=== PATIENT | male | born 1940 | race Caucasian/White ===

== ENCOUNTER → 2016-05-17 | Outpatient (CLI) | payer OTHER ==
[~2016-05-17] MED LIST: ATROPINE SULFATE 0.1 MG/ML 5ML SYR ONE; CEPH500C PO; DOBUTamine HCL 12.5 MG/ML 20 ML VIAL ONE; HYDR-5688 PO; METOPROLOL TARTRATE 1 MG/ML VIAL ONE; PERFLUTREN LIPID MICROSPHERE (DEFINITY) IV ONE; SULF800T23 PO
--- NOTE | 2016-05-18 20:01 | DOBUTAMINE ECHO ---
*NOTICE TO RECEIVING LIBERTARIAN AGENCY This information is strictly Confidential and protected under [place] law. [place] law prohibits you from making any further disclosure of this information unless further disclosure is expressly permitted by the written consent of the person to whom it pertains or is authorized by law. A general authorization for the release of medical or other information is not sufficient for this purpose. Hospital accepts no responsibility if the information is made available to any other person, INCLUDING THE PATIENT. Interpretation Summary * Name: VALE RAMSEY [id number] Study Date: 05/17/2016 11:12 AM BP: 146/92 mmHg * Patient Location: [facility] HR: 96 * : 1940 (M/d/yyyy) Gender: Male Height: 72 in * Age: 75 yrs Ethnicity: CA Weight: 223 lb * Ordering Physician: Naveed Winter * Referring Physician: Naveed Winter * Performed By: Odessa Valenzuela RDCS * * Reason For Study: Abnormal EKG, atrial fibrillation * BSA: 2.2 m2 * The stress echocardiogram is negative for inducible ischemia. * Baseline ECG was essentially normal. No symptoms were noted. * -- Conclusions -- * 1. Negative dobutamine stress echocardiogram for focal myocardial ischemia at 89% MPHR. * 2. Negative ECG portion of pharmacologic stress test. * 3. No symptoms. * 4. Resting ECG normal sinus rhythm with frequernt PACs. No change in baseline ectopy during stress. * 5. Resting echo with moderate global hypokinesis, moderately reduced systolic funtion (EF=40%), and probably severe mitral regurgitation (eccentric posterior jet). * 6. Stress images showed only modest reduction in LV cavity size and only mild increase in systolic funtion (EF increased from 40% to 50%). In the absence of symptoms or dynamic ECG changes this is unlikely to represent multi-vessel ischemia but could represent poor systolic reserve (possibly secondary to severe mitral regurgitation). Procedure Details * DOBUTAMINE ECHO, CPT#67841 * ECHO DOPPLER, CPT #[id number] * ECHO COLOR FLOW, CPT #[id number] * A contrast injection of Definity was performed to improve assessment of LV function. * Contrast was injected into an intravenous site in the left arm. * One vial of Definity ultrasound contrast was diluted in normal saline to a total volume of 10 ml. A total of '5.5' ml of solution was administered during imaging. * Lot # [id number] of Definity utilized for procedure. * Expiration date OCT 28. * The attending nurse who injected the contrast agent was Jade Rivera RN. Left Ventricle * The left ventricle is moderately dilated. * There is normal left ventricular wall thickness. * Ejection Fraction = 35-40%. * There is moderate global hypokinesis of the left ventricle. Right Ventricle * The right ventricle is normal in size and function. Atria * The left atrium is moderately dilated. * Right atrial size is normal. * The interatrial septum is intact with no evidence for an atrial septal defect. Mitral Valve * The mitral valve is normal in structure and function. * There is severe mitral regurgitation. Tricuspid Valve * The tricuspid valve is normal in structure and function. * There is mild tricuspid regurgitation. Aortic Valve * The aortic valve is trileaflet. * The aortic valve is normal in structure and function. * There is no significant aortic regurgitation. Pulmonic Valve * The pulmonary valve is not well seen, but the Doppler examination is normal without significant regurgitation or stenosis. * There is no significant pulmonary regurgitation. Great Vessels * The aortic root is normal size. * Aortic arch of normal dimension. * No obvious dissection could be visualized. * The pulmonary artery is not well visualized, but is probably normal size. Pericardium * There is no pericardial effusion. Stress Parameters * Rest heart rate was '96' BPM. * Rest blood pressure was '146/92' * Maximum heart rate achieved was 131 bpm. * Maximum heart rate was 89 % of maximum age-predicted heart rate. * Maximum blood pressure was '179/98' * Maximum Dobutamine infusion rate was '40' mcg/kg/min. * A total of 0.5 mg of intravenous Atropine was used to supplement Dobutamine for heart rate response. * Dobutamine infusion was terminated due to achieving target heart rate * A total of 15 mg of IV Metoprolol was administered to reverse Dobutamine-induced tachycardia. * The patient did not exhibit any symptoms during drug infusion. MMode 2D Measurements and Calculations IVSd 1.1 cm LVIDd 5.8 cm LVIDs 4.9 cm LVPWd 1.0 cm IVS/LVPW 1.1 FS 15.9 % EDV(Teich) 164.8 ml ESV(Teich) 110.4 ml EF(Teich) 33.0 % EDV(cubed) 192.3 ml ESV(cubed) 114.4 ml EF(cubed) 40.5 % LV mass(C)d 252.2 grams LV mass(C)dI 113.0 grams/m\S\2 SV(Teich) 54.3 ml SI(Teich) 24.4 ml/m\S\2 SV(cubed) 77.9 ml SI(cubed) 34.9 ml/m\S\2 Ao root diam 2.9 cm Ao root area 6.8 cm\S\2 ACS 2.6 cm LA dimension 3.9 cm asc Aorta Diam 3.2 cm LA/Ao 1.3 LVOT diam 2.0 cm LVOT area 3.3 cm\S\2 LVAd ap4 28.5 cm\S\2 LVLd ap4 7.3 cm EDV(MOD-sp4) 90.3 ml EDV(sp4-el) 93.9 ml LVAs ap4 20.7 cm\S\2 LVLs ap4 6.5 cm ESV(MOD-sp4) 56.0 ml ESV(sp4-el) 56.2 ml EF(MOD-sp4) 37.9 % EF(sp4-el) 40.2 % LVAd ap2 28.9 cm\S\2 LVLd ap2 8.2 cm EDV(MOD-sp2) 87.1 ml EDV(sp2-el) 86.5 ml LVAs ap2 23.2 cm\S\2 LVLs ap2 8.1 cm ESV(MOD-sp2) 58.8 ml ESV(sp2-el) 56.8 ml EF(MOD-sp2) 32.6 % EF(sp2-el) 34.3 % LVLd %diff 10.5 % EDV(MOD-bp) 92.8 ml LVLs %diff 19.7 % ESV(MOD-bp) 63.9 ml EF(MOD-bp) 31.1 % SV(MOD-sp4) 34.3 ml SI(MOD-sp4) 15.4 ml/m\S\2 SV(MOD-sp2) 28.4 ml SI(MOD-sp2) 12.7 ml/m\S\2 SV(MOD-bp) 28.8 ml SI(MOD-bp) 12.9 ml/m\S\2 SV(sp4-el) 37.7 ml SI(sp4-el) 16.9 ml/m\S\2 SV(sp2-el) 29.7 ml SI(sp2-el) 13.3 ml/m\S\2 Doppler Measurements and Calculations MV E max sonya 111.4 cm/sec MV dec time 0.16 sec Ao V2 max 111.7 cm/sec Ao max PG 5.0 mmHg Ao max PG (full) 2.0 mmHg LINA(V,A) 2.6 cm\S\2 LINA(V,D) 2.6 cm\S\2 LV V1 max PG 3.0 mmHg LV V1 max 86.5 cm/sec MR max sonya 527.7 cm/sec MR max PG 111.4 mmHg MR mean sonya 425.2 cm/sec MR mean PG 79.3 mmHg MR VTI 172.2 cm PA V2 max 79.1 cm/sec PA max PG 2.5 mmHg PA acc slope 560.5 cm/sec\S\2 PA acc time 0.10 sec PA pr(Accel) 33.1 mmHg
== END | disposition home or self-care (01) ==
LOC: C.CPL 10:53
PROVIDERS: ATTEND Family Medicine
DX: R94.31 Abnormal electrocardiogram [ECG] [EKG] (principal); I48.91 Unspecified atrial fibrillation; J44.9 Chronic obstructive pulmonary disease, unspecified

== ENCOUNTER 2017-02-14 13:44 | Emergency (ER) | payer OTHER ==
[~2017-02-14] VITALS: Ht 182.9 cm; Wt 100.0 kg
[2017-02-14 13:49] VITALS: TEMP 36.5; Ht 182.9 cm; Wt 100.0 kg
[2017-02-14] MEDS ORDERED: ALBUT/IPRATROP 3MG/0.5MG NEB 3 ML VIAL INH STA (14:21)
--- NOTE | 2017-02-14 14:28 | EMERGENCY ROOM VISIT NOTE ---
History First contact with patient: 14:06 Chief Complaint: KNEEPAIN Stated Complaint: LEFT KNEE PAIN R/O DVT History of Present Illness The patient is a 76 year old male who presents to the Emergency Room with complaints of left lower extremity erythema and edema for the last 3-4 days. The patient initially had a knee injury where his knee gave out from under him. He landed directly on the knee On January 20. He has been following with the healthcare staff at [facility] to take care of the injury. He is reportedly supposed to see an orthopedic surgeon. The patient reports limited mobility. He denies any fever or chills. He denies any history of DVT. He denies any chest pain or pressure. He does intermittently feel short of breath. This is normal for him as he is a smoker and has history of COPD. No productive cough. Of note, the patient also reports a history of paroxysmal atrial fibrillation. He was on Coumadin at one point. There is difficulty regulating it. He thinks that it was discontinued because of an episode of hematuria. Review of Systems 10 system review performed and negative unless noted in HPI or below Past Medical/Surgical History COPD, paroxysmal atrial fibrillation, hypertension, heart disease Social History Smoking Status: Current Every Day Smoker Current/Historical Medications Scheduled Cephalexin Monohydrate (Keflex), 500 MG PO QID Sulfa/Trimethoprim (Bactrim Ds 800MG/160MG), 1 TAB PO BID Scheduled PRN Hydrocodone/Acetaminophen 5MG/325MG (Salem 5MG/325MG), 1-2 TABLET PO Q4H PRN for Pain Physical Exam Vital Signs Date Time Temp Pulse Resp B/P (MAP) Pulse Ox O2 Delivery O2 Flow Rate FiO2 02/14/17 17:53 85 18 143/90 97 02/14/17 14:41 87 18 131/80 99 Room Air 02/14/17 13:49 36.5 91 18 152/84 92 Room Air Physical Exam VITALS: Vitals are noted on the nurse's note and reviewed by myself. Vital signs stable. GENERAL: 76-year-old male, in no acute distress, nondiaphoretic, well-developed well-nourished. SKIN: The skin was intact HEAD: Normocephalic atraumatic. MOUTH: Mucous membranes somewhat dry HEART: Regular rate and rhythm without murmurs gallops or rubs. LUNGS: Diffuse wheezing in all lung murcia. No crackles or rhonchi. No tachypnea. MUSCULOSKELETAL: Diffuse nonpitting edema and erythema noted to the left lower extremity starting at the ankle extending proximally to the knee. Significant tenderness to palpation. Warmth also noted. Pain with flexion and extension of the knee. He still pulses +2. NEURO: Patient was alert and oriented to person place and time. Normal sensation to touch. No focal neurological deficits. Medical Decision & Procedures ER Provider Diagnostic Interpretation: 3 views of the left ankle FINDINGS: No acute fracture, dislocation or significant degenerative changes. The bones are mildly demineralized. There is mild soft tissue swelling about the lower extremity and ankle without opaque foreign body. Mild tibiotalar and mid foot osteoarthritis is noted. Small Achilles enthesophyte. IMPRESSION: 1. Mild soft tissue swelling about the lower leg and ankle without acute fracture or dislocation. 2. Mild degenerative changes of the hindfoot as above. IMPRESSION: No DVT within the left lower extremity. LEFT KNEE 3 VIEWS CLINICAL HISTORY: Left knee erythema. Swelling. FINDINGS: AP, crosstable lateral, and sunrise views of left knee are obtained. No prior studies are available for comparison at the time of dictation. The skeletal structures are osteopenic. There is a nondistracted spiral fracture through the fibular head. No additional fracture is seen. Advanced narrowing is seen in the medial and patellofemoral compartments with near complete loss of the joint space. There is bony sclerosis in the medial compartment. There are medial marginal osteophytes and patellar enthesophytes. A calcified fabella is incidentally noted. There is no significant joint effusion. Mild soft tissue swelling is present around the knee. IMPRESSION: 1. There is a nondistracted spiral fracture of the fibular head with overlying soft tissue edema. 2. Osteopenia and arthritic change as above. LEFT TIBIA AND FIBULA 2 VIEWS CLINICAL HISTORY: Fibular fracture. FINDINGS: AP and lateral views of the left tibia and fibula are correlated with radiograph of left knee performed the same day for 17. The skeletal structures are osteopenic. Again seen is a minimally distracted fracture through the fibular head. The distal fibula appears intact. No tibial fracture is seen. The knee and ankle joints are grossly intact noting arthritic change. Soft tissue swelling is present throughout the left leg. IMPRESSION: 1. Again seen is a minimally distracted fibular head fracture. 2. No left tibial fracture is identified. Laboratory Results 02/14/17 14:31 Red Blood Count 3.64, Mean Corpuscular Volume 101.6, Mean Corpuscular Hemoglobin 34.1, Mean Corpuscular Hemoglobin Concent 33.5, Mean Platelet Volume 10.2, Neutrophils (%) (Auto) 68.7, Lymphocytes (%) (Auto) 16.8, Monocytes (%) ( Auto) 10.2, Eosinophils (%) (Auto) 3.7, Basophils (%) (Auto) 0.5, Neutrophils # (Auto) 5.04, Lymphocytes # (Auto) 1.23, Monocytes # (Auto) 0.75, Eosinophils # ( Auto) 0.27, Basophils # (Auto) 0.04 02/14/17 14:31 Test 02/14/17 14:31 White Blood Count 7.34 K/uL (4.8-10.8) Red Blood Count 3.64 M/uL (4.7-6.1) Hemoglobin 12.4 g/dL (14.0-18.0) Hematocrit 37.0 % (42-52) Mean Corpuscular Volume 101.6 fL (80-100) Mean Corpuscular Hemoglobin 34.1 pg (25-34) Mean Corpuscular Hemoglobin Concent 33.5 g/dl (32-36) Platelet Count 132 K/uL (130-400) Mean Platelet Volume 10.2 fL (7.4-10.4) Neutrophils (%) (Auto) 68.7 % Lymphocytes (%) (Auto) 16.8 % Monocytes (%) (Auto) 10.2 % Eosinophils (%) (Auto) 3.7 % Basophils (%) (Auto) 0.5 % Neutrophils # (Auto) 5.04 K/uL (1.4-6.5) Lymphocytes # (Auto) 1.23 K/uL (1.2-3.4) Monocytes # (Auto) 0.75 K/uL (0.11-0.59) Eosinophils # (Auto) 0.27 K/uL (0-0.5) Basophils # (Auto) 0.04 K/uL (0-0.2) RDW Standard Deviation 59.6 fL (36.4-46.3) RDW Coefficient of Variation 16.2 % (11.5-14.5) Immature Granulocyte % (Auto) 0.1 % Immature Granulocyte # (Auto) 0.01 K/uL (0.00-0.02) Prothrombin Time 10.9 SECONDS (9.0-12.0) Prothromb Time International Ratio 1.0 (0.9-1.1) Activated Partial Thromboplast Time 27.9 SECONDS (21.0-31.0) Partial Thromboplastin Ratio 1.1 Anion Gap 4.0 mmol/L (3-11) Est Creatinine Clear Calc Drug Dose 72.1 ml/min Estimated GFR () 76.2 Estimated GFR (Non- 65.8 BUN/Creatinine Ratio 20.4 (10-20) Calcium Level 9.4 mg/dl (8.5-10.1) Medications Administered Medications (Trade) Dose Ordered Sig/Fransisca Route Start Time Stop Time Status Last Admin Dose Admin Albuterol/ Ipratropium (Duoneb) 3 ml ONE STAT INH 02/14/17 14:21 02/14/17 14:24 DC 02/14/17 14:29 3 ML Acetaminophen/ Hydrocodone Bitart (Salem 5/325 Tab) 1 tab ONE STAT PO 02/14/17 14:45 02/14/17 14:46 DC 02/14/17 14:49 1 TAB Ceftriaxone Sodium (Rocephin Inj) 1 gm NOW STAT IV 02/14/17 16:12 02/14/17 16:14 DC 02/14/17 16:19 1 GM Trimethoprim/ Sulfamethoxazole (Septra Ds 800/ 160MG Tab) 1 tab NOW ONCE PO 02/14/17 16:15 02/14/17 16:16 DC 02/14/17 16:18 1 TAB ED Course Patient was seen and examined Vital signs including blood pressure were reviewed medications list was verified with patient Labs were obtained, and a saline lock was established Imaging was performed and reviewed The patient was given an albuterol nebulization treatment He was given 1 dose of Rocephin 1 g IV. He was also given Bactrim DS 1 tab by mouth. He was given one Salem for pain Upon reevaluation, the patient was feeling better. We discussed the results of his workup. He voiced understanding. The case was discussed with Dr. Agosto from orthopedics. The patient was put in a knee immobilizer. He was instructed on the use of crutches. I reviewed discharge instructions the patient. They voiced understanding and had no further questions. Medical Decision Differential diagnosis: Cellulitis, DVT, knee effusion, fracture This patient is a 76-year-old male that presents the emergency department with left knee pain in addition to left leg erythema and swelling. He had a reported injury in January. Initial imaging is consistent with a fibular head fracture. The case was discussed with orthopedics who also recommended imaging the ankle to ensure no sign of a Maisonneuve fracture. Ankle films were negative. An ultrasound was performed. No signs of a DVT. It does appear that the patient has a rather substantial cellulitis. Given the fact that he is incarcerated, he'll be covered with both Keflex and Bactrim. The patient was put in a knee immobilizer so it could be removed to assess the leg. He will follow-up with orthopedics. He will return to the emergency department with any new or worsening symptoms. This chart was completed in part utilizing [employer] Speech Voice Recognition software. Attempts were made to minimize the grammatical errors, random word insertions, pronoun errors and incomplete sentences. Any formal questions or concerns about the content, text or information contained within the body of this dictation should be directly addressed to the provider for clarification. Medication Reconcilliation Current Medication List: was personally reviewed by me Blood Pressure Screening Patient's blood pressure: Elevated blood pressure Blood pressure disposition: Elevated BP felt to be situational Consults Consulting Physician: Dr. Agosto Impression Primary Impression: Fracture, fibula, proximal Additional Impression: Cellulitis Departure Information Dispostion Home / Self-Care Prescriptions Hydrocodone/Acetaminophen 5MG/325MG (Salem 5MG/325MG) Tab 1-2 TABLET PO Q4H Y for Pain, #9 TAB For Initial Treatment Prov: Mabel Leblanc PA-C 02/14/17 Cephalexin Monohydrate (Keflex) 500 Mg Cap 500 MG PO QID for 7 Days, #28 CAP Prov: Mabel Leblanc PA-C 02/14/17 Sulfa/Trimethoprim (Bactrim Ds 800MG/160MG) Tab 1 TAB PO BID for 7 Days, #14 TAB Prov: Mabel Leblanc PA-C 02/14/17 Cortez Gibbs (PCP) Sherbondy,Garth S.,M.D. Patient Instructions My [facility] Additional Instructions You were evaluated in the emergency department for left leg pain and redness and swelling. There is a proximal fibular head fracture. Cellulitis is also present on the left leg Please follow-up with orthopedics. Call tomorrow morning for an appointment. Keep the knee immobilizer in place when up and about. Use crutches. No weightbearing on the left leg. The knee immobilizer can be removed to evaluate the infection. Finish the entire course of antibiotics. Please take a probiotic daily while taking these antibiotics. Continue Naprosyn as prescribed for pain Salem one to 2 tabs every 4 hours for severe pain. This may be taken in addition to the Naprosyn Please reevaluate the infection on the leg in 2 days. Please return to the emergency department with any new or worsening symptoms Problem Qualifiers
[2017-02-14] MEDS ORDERED: HYDROCODONE/ACETAMOPHEN 5/325MG TAB PO STA (14:45)
[2017-02-14 14:57] LABS: BASO % 0.5 %; BASO ABS # 0.04 K/uL (0-0.2); COMPLETE YES; EOS % 3.7 %; IG% 0.1 %; LYMPH % 16.8 %; LYMPH ABS # 1.23 K/uL (1.2-3.4); MEAN CELL VOLUME 101.6 fL (80-100); MEAN CORPUSCULAR HEMOGLOBIN 34.1 pg (25-34); MEAN CORPUSCULAR HGB CONC 33.5 g/dl (32-36); MEAN PLATELET VOLUME 10.2 fL (7.4-10.4); MONO % 10.2 %; NEUT % 68.7 %; PLATELET COUNT 132 K/uL (130-400); RED BLOOD COUNT 3.64 M/uL (4.7-6.1); WHITE BLOOD COUNT 7.34 K/uL (4.8-10.8)
[2017-02-14 15:01] LABS: PARTIAL THROMBOPLASTIN RATIO 1.1; PROTHROMBIN TIME (PATIENT) 10.9 SECONDS (9.0-12.0)
[2017-02-14 15:17] LABS: BUN/CREATININE RATIO 20.4 (10-20); CALCIUM 9.4 mg/dl (8.5-10.1); CREATININE 1.1 mg/dl (0.60-1.40); POTASSIUM 3.9 mmol/L (3.5-5.1)
--- NOTE | 2017-02-14 15:21 | DIAGNOSTIC IMAGING REPORT ---
LEFT KNEE 3 VIEWS CLINICAL HISTORY: Left knee erythema. Swelling. FINDINGS: AP, crosstable lateral, and sunrise views of left knee are obtained. No prior studies are available for comparison at the time of dictation. The skeletal structures are osteopenic. There is a nondistracted spiral fracture through the fibular head. No additional fracture is seen. Advanced narrowing is seen in the medial and patellofemoral compartments with near complete loss of the joint space. There is bony sclerosis in the medial compartment. There are medial marginal osteophytes and patellar enthesophytes. A calcified fabella is incidentally noted. There is no significant joint effusion. Mild soft tissue swelling is present around the knee. IMPRESSION: 1. There is a nondistracted spiral fracture of the fibular head with overlying soft tissue edema. 2. Osteopenia and arthritic change as above. Electronically signed by: Bud Scruggs M.D. 02/14/2017 3:20 PM Dictated Date/Time: 02/14/2017 3:18 PM
--- NOTE | 2017-02-14 15:50 | DIAGNOSTIC IMAGING REPORT ---
LEFT LOWER EXTREMITY VENOUS DOPPLER HISTORY: Left leg swelling. COMPARISON STUDY: None. FINDINGS: There is normal compressibility, flow, and augmentation within the left lower extremity deep venous system. A 2.6 x 1.8 x 0.7 cm popliteal cyst IMPRESSION: No DVT within the left lower extremity. Electronically signed by: Ricardo Lim M.D. 02/14/2017 3:48 PM Dictated Date/Time: 02/14/2017 3:48 PM
--- NOTE | 2017-02-14 15:53 | DIAGNOSTIC IMAGING REPORT ---
LEFT TIBIA AND FIBULA 2 VIEWS CLINICAL HISTORY: Fibular fracture. FINDINGS: AP and lateral views of the left tibia and fibula are correlated with radiograph of left knee performed the same day 10 for 17. The skeletal structures are osteopenic. Again seen is a minimally distracted fracture through the fibular head. The distal fibula appears intact. No tibial fracture is seen. The knee and ankle joints are grossly intact noting arthritic change. Soft tissue swelling is present throughout the left leg. IMPRESSION: 1. Again seen is a minimally distracted fibular head fracture. 2. No left tibial fracture is identified. Electronically signed by: Bud Scruggs M.D. 02/14/2017 3:51 PM Dictated Date/Time: 02/14/2017 3:50 PM
[2017-02-14] MEDS ORDERED: CEFTRIAXONE SOD INJ 1 GM ADDVIAL IV STA (16:12)
[2017-02-14] MEDS ORDERED: SULFAMETHOXAZOLE/TRIMETHOPRIM DS 800/160MG TAB PO ONE (16:15)
[2017-02-14] MEDS ORDERED: HYDR-5688 PO (16:43)
[2017-02-14] MEDS ORDERED: SULF800T23 PO (16:43)
[2017-02-14] MEDS ORDERED: CEPH500C PO (16:43)
--- NOTE | 2017-02-14 17:00 | EMERGENCY ROOM VISIT NOTE ---
ED Visit Note First contact with patient: 14:06 I have personally seen and evaluated the patient with the physician assistant refinery operator. I agree with the diagnostic/management decisions and have personally been involved in these decisions and agree with the diagnosis.
--- NOTE | 2017-02-14 17:30 | DIAGNOSTIC IMAGING REPORT ---
L ANKLE MIN 3 VIEWS ROUTINE HISTORY: 76 years-old Male ? ankle injury in addition to prox fib acute left ankle pain COMPARISON: Left tibia and fibula radiographs of same day TECHNIQUE: 3 views of the left ankle FINDINGS: No acute fracture, dislocation or significant degenerative changes. The bones are mildly demineralized. There is mild soft tissue swelling about the lower extremity and ankle without opaque foreign body. Mild tibiotalar and mid foot osteoarthritis is noted. Small Achilles enthesophyte. IMPRESSION: 1. Mild soft tissue swelling about the lower leg and ankle without acute fracture or dislocation. 2. Mild degenerative changes of the hindfoot as above. The above report was generated using voice recognition software. It may contain grammatical, syntax or spelling errors. Electronically signed by: Avi Chin M.D. 02/14/2017 5:28 PM Dictated Date/Time: 02/14/2017 5:27 PM
[2017-02-14 17:53] VITALS: BP 143/90; PULSE 85; O2SAT 97
== END 2017-02-14 17:54 | disposition home or self-care (01) ==
LOC: C.EDB 13:45 → C.EDD 17:54
DX: S82.832D Other fracture of upper and lower end of left fibula, subsequent encounter for closed fracture with routine healing (principal); L03.116 Cellulitis of left lower limb; F17.210 Nicotine dependence, cigarettes, uncomplicated; W19.XXXD Unspecified fall, subsequent encounter; J44.9 Chronic obstructive pulmonary disease, unspecified; I48.0 Paroxysmal atrial fibrillation; I10 Essential (primary) hypertension

== ENCOUNTER 2017-09-04 09:27 | Inpatient (IN) | payer OTHER ==
[~2017-09-04] VITALS: Ht 182.9 cm; Wt 100.3 kg
[2017-09-04] MEDS ORDERED: ONDANSETRON INJ 2 MG/ML 2 ML VIAL IV STA (09:48)
[2017-09-04] MEDS ORDERED: SODIUM CHLORIDE 0.9% 250ML 250 ML IV STA (09:48)
[2017-09-04] MEDS ORDERED: MoRPHine SULFATE 4 MG/ML 1 ML CARP\\VIAL IV STA ×2 (09:48→13:33)
[2017-09-04] MEDS ORDERED: SODIUM CHLORIDE 0.9% 1000ML 1,000 ML IV STA (09:48)
--- NOTE | 2017-09-04 10:02 | EMERGENCY ROOM VISIT NOTE ---
History Report prepared by Solo: Cooper Carter Under the Supervision of: Dr. Rhoda Lucas M.D. First contact with patient: 09:33 Chief Complaint: ABDOMINAL PAIN Stated Complaint: ABD PAIN History of Present Illness The patient is a 77 year old male who presents to the Emergency Room with complaints of constant abdominal pain that began last night. The patient states that he had a hernia pop out last night below his belly button. This hernia has popped out two times in the past, but he was able to reduce it on his own. This time he was not able to reduce it. The patient also notes that he vomited 4-5 times this morning. There was not blood in the emesis. The patient has a known history of atrial fibrillation, but he does not take blood thinners. Source of History: patient Onset: Last night Position: abdomen Quality: other (pain with hernia) Timing: constant Associated Symptoms: + vomiting Review of Systems See HPI for pertinent positives & negatives. A total of 10 systems reviewed and were otherwise negative. Past Medical & Surgical Medical Problems: (1) Incarcerated umbilical hernia Hx of atrial fibrillation. Family History Omitted secondary to age. Social History Smoking Status: Current Every Day Smoker Marital Status: single Housing Status: other (inmate) Occupation Status: other (inmate) Current/Historical Medications Scheduled Aspirin (Aspirin EC Low Dose), 81 MG PO DAILY Scheduled PRN Oxycodone/Acetaminophen 5MG/325MG (Percocet 5MG/325MG), 1 TABLET PO Q4H PRN for Pain Allergies Coded Allergies: Doxazosin (Verified Allergy, Unknown, RASH, 05/17/16) PER PROVIDED RECORDS Physical Exam Vital Signs Date Time Temp Pulse Resp B/P (MAP) Pulse Ox O2 Delivery O2 Flow Rate FiO2 09/04/17 13:30 96 18 174/121 94 Room Air 09/04/17 12:42 93 162/100 09/04/17 11:57 99 18 144/106 94 Room Air 09/04/17 10:29 96 20 166/98 98 Room Air 09/04/17 10:23 93 09/04/17 10:18 95 24 178/132 98 Room Air 09/04/17 09:29 36.9 105 18 182/105 100 Room Air Physical Exam Vital signs reviewed. General: Well-appearing older male, in no significant distress. HEENT: No scleral icterus, PERRLA, neck supple. Atraumatic. Cardiovascular: Regular rate and rhythm, no extra sounds. Pulmonary: Clear to auscultation bilaterally, normal work of breathing. Abdomen: Soft, there is a 4-5 cm mass to the umbilical region that is indurated and tender, not reducible, positive bowel sounds. Musculoskeletal: Atraumatic, no peripheral edema. Neurologic: Patient awake alert and oriented x 3 Skin: Warm, dry, no rash Medical Decision & Procedures ER Provider Diagnostic Interpretation: Radiology results as stated below per my review and radiologist interpretation: ABDOMEN LIMITED (US) HISTORY: Pain INCARCERATED UMBILICAL HERNIA. COMPARISON: None. FINDINGS: Attention is made to the periumbilical region. At this site there is a bowel and fluid containing periumbilical hernia measuring 3.5 x 1.8 cm. The bowel component is reducible. IMPRESSION: 1. Fluid and bowel containing periumbilical hernia. 2. The bowel component is reducible. The above report was generated using voice recognition software. It may contain grammatical, syntax or spelling errors. Electronically signed by: James Villareal M.D. 09/04/2017 12:22 PM Dictated Date/Time: 09/04/2017 12:21 PM ABDOMEN 2VIEW W/PA CHEST RTN CLINICAL HISTORY: INCARCERATED UMBILICAL HERNIA pain. Obstruction. COMPARISON STUDY: No previous studies for comparison. FINDINGS: Lungs are clear. Mild cardia megaly. Diaphragms smooth. Nonobstructive bowel pattern. Degenerative change lumbar spine. IMPRESSION: 1. Mild cardia megaly. 2. Otherwise negative chest. 3. Nonobstructive bowel pattern. The above report was generated using voice recognition software. It may contain grammatical, syntax or spelling errors. Electronically signed by: James Villareal M.D. 09/04/2017 11:00 AM Dictated Date/Time: 09/04/2017 10:59 AM Laboratory Results Test 09/04/17 10:08 09/04/17 12:40 Prothrombin Time 11.4 SECONDS (9.0-12.0) Prothromb Time International Ratio 1.1 (0.9-1.1) Urine Color DK YELLOW Urine Appearance CLEAR (CLEAR) Urine pH 6.0 (4.5-7.5) Urine Specific [place] 1.021 (1.000-1.030) Urine Protein NEG (NEG) Urine Glucose (UA) NEG (NEG) Urine Ketones NEG (NEG) Urine Occult Blood NEG (NEG) Urine Nitrite NEG (NEG) Urine Bilirubin NEG (NEG) Urine Urobilinogen NEG (NEG) Urine Leukocyte Esterase NEG (NEG) Laboratory results per my review. Medications Administered Medications (Trade) Dose Ordered Sig/Fransisca Route Start Time Stop Time Status Last Admin Dose Admin Sodium Chloride 250 ml @ 999 mls/hr Q16M STAT IV 09/04/17 09:48 09/04/17 10:03 DC 09/04/17 09:48 999 MLS/HR Sodium Chloride 1,000 ml @ 150 mls/hr Q6H40M STAT IV 09/04/17 09:48 09/04/17 16:27 DC 09/04/17 09:48 150 MLS/HR Morphine Sulfate (MoRPHine SULFATE INJ) 4 mg NOW STAT IV 09/04/17 09:48 09/04/17 09:50 DC 09/04/17 10:24 4 MG Ondansetron HCl (Zofran Inj) 4 mg NOW STAT IV 09/04/17 09:48 09/04/17 09:50 DC 09/04/17 10:18 4 MG Metoprolol Tartrate (Lopressor Iv) 5 mg NOW STAT IV 09/04/17 11:58 09/04/17 11:59 DC 09/04/17 12:42 5 MG Morphine Sulfate (MoRPHine SULFATE INJ) 4 mg NOW STAT IV 09/04/17 13:33 09/04/17 13:34 DC 09/04/17 13:40 4 MG ECG Per My Interpretation Indication: abdominal pain Rate (beats per minute): 96 Rhythm: atrial fibrillation Findings: LAFB, other (QTC is 457) ED Course 0946: Past medical records reviewed. The patient was evaluated in room B7. A complete history and physical examination was performed. 0948: Ordered Zofran 4 mg IV, Morphine Sulfate 4 mg IV, Sodium Chloride 1000 mL @ 150 mL/hr IV, Sodium Chloride 250 mL @ 999 mL/hr IV. 1158: Ordered Metoprolol 5 mg IV. 1326: I discussed the case with Surgery at this time. They will com evaluate the patients hernia. 1333: Ordered Morphine Sulfate 4 mg IV. Medical Decision Differential diagnosis: Etiologies such as appendicitis, hernia, diverticulitis, PUD, biliary pathology , UTI, pancreatitis, obstruction, mesenteric ischemia, aortic pathology, infections, inflammatory bowel disease, renal colic, as well as others were entertained. This pt was evaluated and appeared to be in no distress. IV access was obtained and lab work was drawn. Pt was medicated with IV morphine and zofran. Pt was given IV mtoprolol as he did not take morning meds and has n/v. He was found to have a partially incarcerated umbilical hernia on US. No SBO on FAS. Pt did require an additional dose of IV morphine for pain. He was d/w gen surgery PA for Dr Lozada. Pt was taken to the OR for definitive management. Pt was aware of the plan and agrees. Impression Primary Impression: Incarcerated umbilical hernia Scribe Attestation The scribe's documentation has been prepared under my direction and personally reviewed by me in its entirety. I confirm that the note above accurately reflects all work, treatment, procedures, and medical decision making performed by me. Departure Information Prescriptions Oxycodone/Acetaminophen 5MG/325MG (PERCOCET 5MG/325MG) Tab 1 TABLET PO Q4H Y for Pain, #18 TAB Prov: Yoanna Boss ., PAGhassanC 09/06/17 Referrals Cortez BOND (PCP) Patient Instructions My [facility]
[2017-09-04 10:19] LABS: BASO % 0.3 %; BASO ABS # 0.03 K/uL (0-0.2); EOS % 0.8 %; EOS ABS # 0.08 K/uL (0-0.5); HEMATOCRIT 40.5 % (42-52); HEMOGLOBIN 13.8 g/dL (14.0-18.0); IG# 0.04 K/uL (0.00-0.02); LYMPH % 11.2 %; LYMPH ABS # 1.17 K/uL (1.2-3.4); MEAN CELL VOLUME 103.3 fL (80-100); MEAN CORPUSCULAR HEMOGLOBIN 35.2 pg (25-34); MEAN CORPUSCULAR HGB CONC 34.1 g/dl (32-36); MEAN PLATELET VOLUME 10.2 fL (7.4-10.4); MONO ABS # 0.94 K/uL (0.11-0.59); NEUT % 78.3 %; NEUT ABS # 8.19 K/uL (1.4-6.5); PLATELET COUNT 132 K/uL (130-400); RED CELL DISTRIBUTION WIDTH CV 16.5 % (11.5-14.5); RED CELL DISTRIBUTION WIDTH SD 62.1 fL (36.4-46.3); WHITE BLOOD COUNT 10.45 K/uL (4.8-10.8)
[2017-09-04 10:29] LABS: INR 1.1 (0.9-1.1); PTT PATIENT 25.8 SECONDS (21.0-31.0)
[2017-09-04 10:38] LABS: ALBUMIN 3.3 gm/dl (3.4-5.0); ALT/SGPT 21 U/L (12-78); AST/SGOT 16 U/L (15-37); BLOOD UREA NITROGEN 16 mg/dl (7-18); CALCIUM 9.6 mg/dl (8.5-10.1); CARBON DIOXIDE 30 mmol/L (21-32); GLUCOSE 123 mg/dl (70-99); POTASSIUM 4.1 mmol/L (3.5-5.1); SODIUM 141 mmol/L (136-145)
[2017-09-04 10:41] LABS: ALKALINE PHOSPHATASE 103 U/L (45-117); TOTAL PROTEIN 6.9 gm/dl (6.4-8.2)
--- NOTE | 2017-09-04 11:01 | DIAGNOSTIC IMAGING REPORT ---
ABDOMEN 2VIEW W/PA CHEST RTN CLINICAL HISTORY: INCARCERATED UMBILICAL HERNIA pain. Obstruction. COMPARISON STUDY: No previous studies for comparison. FINDINGS: Lungs are clear. Mild cardia megaly. Diaphragms smooth. Nonobstructive bowel pattern. Degenerative change lumbar spine. IMPRESSION: 1. Mild cardia megaly. 2. Otherwise negative chest. 3. Nonobstructive bowel pattern. The above report was generated using voice recognition software. It may contain grammatical, syntax or spelling errors. Electronically signed by: James Villareal M.D. 09/04/2017 11:00 AM Dictated Date/Time: 09/04/2017 10:59 AM
[2017-09-04] MEDS ORDERED: METOPROLOL TARTRATE 1 MG/ML VIAL IV STA ×3 (11:58→19:41)
--- NOTE | 2017-09-04 12:23 | DIAGNOSTIC IMAGING REPORT ---
ABDOMEN LIMITED (US) HISTORY: Pain INCARCERATED UMBILICAL HERNIA. COMPARISON: None. FINDINGS: Attention is made to the periumbilical region. At this site there is a bowel and fluid containing periumbilical hernia measuring 3.5 x 1.8 cm. The bowel component is reducible. IMPRESSION: 1. Fluid and bowel containing periumbilical hernia. 2. The bowel component is reducible. The above report was generated using voice recognition software. It may contain grammatical, syntax or spelling errors. Electronically signed by: James Villareal M.D. 09/04/2017 12:22 PM Dictated Date/Time: 09/04/2017 12:21 PM
--- NOTE | 2017-09-04 13:37 | History and Physical ---
History & Physical Date & Time of Service: Sep 04, 2017 at 13:18 Chief Complaint: Abd Pain Primary Care Physician: Cortez BOND History of Present Illness Source: patient Good states he has had the hernia for awhile now off and on. States he will noticed that it bulges out and is able to reduce it back in on its own for the past couple of weeks however last night felt a popping sensation and was unable to push the hernia back in. Associated abdominal pain that took him down to his knees. Associated nausea and vomiting this morning. Pain mostly in the periumbilical region with some radiation to the LLQ. Last bowel movement was yesterday morning, soft, formed without any blood. Has had more gas recently and that is not usual for him. Usually regular with bowel movements daily. No history of hernia repair before. Had an open appendectomy in 1949's no other abdominal surgeries. History of atrial fibrillation . States he is not on any blood thinning agents but takes an aspirin daily. History of COPD with 50 year history of smoking. Takes inhaler prn. Ultrasound of the abdomen showed a 3.5 x 1.7 cm fluid filled and small bowel in which bowel component is reducible. CXR showing no evidence of bowel obstruction Labs show no leukocytosis. Vitals stable other than some tachycardia most likely secondary to pain. Last pain medication was 2 hours ago. States pain is starting to increase. Past Medical/Surgical History Past Medical History: (1) Cellulitis (2) Fracture, fibula, proximal (3) COPD (4) Atrial Fibrillation (5) Urinary retention (6) Elevated PSA Past Surgical History: (1) Appendectomy (2) Right knee arthroscopy Social History Smoking Status: Current Every Day Smoker Marital Status: single Occupational Status: other (inmate) Allergies Coded Allergies: Doxazosin (Verified Allergy, Unknown, RASH, 05/17/16) PER PROVIDED RECORDS Review of Systems Constitutional: No fever, No chills, No sweats Respiratory: + wheezing, No cough, No shortness of breath Cardiovascular: No chest pain, No palpitations Abdomen: + pain, + nausea, + vomiting, No diarrhea, No constipation, No GI bleeding Musculoskeletal: No joint pain Genitourinary - Male: + urinary retention, No hematuria, No dysuria, No urinary frequency Hematologic / Lymphatic: No abnormal bleeding/bruising Integumentary: No rash Physical Exam Vital Signs Date Time Temp Pulse Resp B/P (MAP) Pulse Ox O2 Delivery O2 Flow Rate FiO2 09/04/17 12:42 93 162/100 09/04/17 11:57 99 18 144/106 94 Room Air 09/04/17 10:29 96 20 166/98 98 Room Air 09/04/17 10:23 93 09/04/17 10:18 95 24 178/132 98 Room Air 09/04/17 09:29 36.9 105 18 182/105 100 Room Air General Appearance: WD/WN, no apparent distress Head: normocephalic, atraumatic Eyes: sclerae normal ENT: hearing grossly normal Neck: trachea midline Respiratory/Chest: no respiratory distress, no accessory muscle use, + wheezing (expiratory wheezing) Cardiovascular: no murmur, + irregularly irregular Abdomen/GI: soft, no organomegaly, no pulsatile mass, + tenderness (no peritonitis or rigidity), + hernia (umbilical hernia about 4 cm size, some cyanosis of the overlying skin, nonreducible on examination) Back: normal inspection Extremities/Musculoskelatal: normal inspection, no pedal edema Neurologic/Psych: alert, normal mood/affect, oriented x 3 Skin: normal color, warm/dry, no rash Diagnostics Laboratory Results Results Past 24 Hours Test 09/04/17 10:08 09/04/17 12:40 Range/Units White Blood Count 10.45 4.8-10.8 K/uL Red Blood Count 3.92 4.7-6.1 M/uL Hemoglobin 13.8 14.0-18.0 g/dL Hematocrit 40.5 42-52 % Mean Corpuscular Volume 103.3 80-100 fL Mean Corpuscular Hemoglobin 35.2 25-34 pg Mean Corpuscular Hemoglobin Concent 34.1 32-36 g/dl Platelet Count 132 130-400 K/uL Mean Platelet Volume 10.2 7.4-10.4 fL Neutrophils (%) (Auto) 78.3 % Lymphocytes (%) (Auto) 11.2 % Monocytes (%) (Auto) 9.0 % Eosinophils (%) (Auto) 0.8 % Basophils (%) (Auto) 0.3 % Neutrophils # (Auto) 8.19 1.4-6.5 K/uL Lymphocytes # (Auto) 1.17 1.2-3.4 K/uL Monocytes # (Auto) 0.94 0.11-0.59 K/uL Eosinophils # (Auto) 0.08 0-0.5 K/uL Basophils # (Auto) 0.03 0-0.2 K/uL RDW Standard Deviation 62.1 36.4-46.3 fL RDW Coefficient of Variation 16.5 11.5-14.5 % Immature Granulocyte % (Auto) 0.4 % Immature Granulocyte # (Auto) 0.04 0.00-0.02 K/uL Prothrombin Time 11.4 9.0-12.0 SECONDS Prothromb Time International Ratio 1.1 0.9-1.1 Activated Partial Thromboplast Time 25.8 21.0-31.0 SECONDS Partial Thromboplastin Ratio 1.0 Sodium Level 141 136-145 mmol/L Potassium Level 4.1 3.5-5.1 mmol/L Chloride Level 108 98-107 mmol/L Carbon Dioxide Level 30 21-32 mmol/L Anion Gap 3.0 3-11 mmol/L Blood Urea Nitrogen 16 7-18 mg/dl Creatinine 1.10 0.60-1.40 mg/dl Estimated GFR () 75.7 Estimated GFR (Non- 65.3 BUN/Creatinine Ratio 14.8 10-20 Random Glucose 123 70-99 mg/dl Calcium Level 9.6 8.5-10.1 mg/dl Total Bilirubin 1.3 0.2-1 mg/dl Direct Bilirubin 0.4 0-0.2 mg/dl Aspartate Amino Transf (AST/SGOT) 16 15-37 U/L Alanine Aminotransferase (ALT/SGPT) 21 12-78 U/L Alkaline Phosphatase 103 45-117 U/L Total Protein 6.9 6.4-8.2 gm/dl Albumin 3.3 3.4-5.0 gm/dl Urine Color DK YELLOW Urine Appearance CLEAR CLEAR Urine pH 6.0 4.5-7.5 Urine Specific [place] 1.021 1.000-1.030 Urine Protein NEG NEG Urine Glucose (UA) NEG NEG Urine Ketones NEG NEG Urine Occult Blood NEG NEG Urine Nitrite NEG NEG Urine Bilirubin NEG NEG Urine Urobilinogen NEG NEG Urine Leukocyte Esterase NEG NEG Diagnostic Radiology ABDOMEN LIMITED (US) HISTORY: Pain INCARCERATED UMBILICAL HERNIA. COMPARISON: None. FINDINGS: Attention is made to the periumbilical region. At this site there is a bowel and fluid containing periumbilical hernia measuring 3.5 x 1.8 cm. The bowel component is reducible. IMPRESSION: 1. Fluid and bowel containing periumbilical hernia. 2. The bowel component is reducible. EKG Atrial fibrillation Left anterior fascicular block Abnormal ECG No previous ECGs available Confirmed by HORTENSIA ARITA ([id number]) on 09/04/2017 12:39:15 PM Impression Assessment and Plan 77 year-old male who presented to emergency department with increasing abdominal pain, nausea, and vomiting with associated umbilical hernia. Ultrasound of abdomen showing fluid and bowel containing hernia in which bowel component is reducible. Patient has no leukocytosis. Abdomen examination is soft, nondistended, no peritonitis however unable to reduce umbilical hernia given patient's abdominal discomfort on multiple attempts. Plan: Discussed with patient the need for surgical repair of hernia given incarceration and bowel component. Currently no signs of bowel obstruction on chest x-ray. Will admit patient to med/surg floor in the meantime. Keep patient NPO, IV fluids, IV pain management as needed, and IV Zofran as needed. Dr. Lozada to see the patient later this afternoon. Resuscitation Status VTE Prophylaxis Will order VTE Prophylaxis: Yes Note I interviewed and examined this patient and reviewed his laboratories and radiology reports and I agree with the above note. He has an incarcerated hernia. Bowel does not seem to be within the incarcerated segment. I explained him the repair of a laparoscopic hernia and the possible need to remove small bowel. He understands that. I explained the possible complications associated with those procedures and he understands. I answers questions and he has signed a consent form.
[2017-09-04] MEDS ORDERED: OXYCODONE/ACETAMINOPHEN 5-325 TAB PO PRN ×2 (13:45)
[2017-09-04] MEDS ORDERED: ACETAMINOPHEN 325 MG TAB PO PRN (13:45)
[2017-09-04] MEDS ORDERED: MoRPHine SULFATE 2 MG/ML CARP IV PRN ×2 (13:45)
[2017-09-04] MEDS ORDERED: MoRPHine SULFATE 4 MG/ML 1 ML CARP\\VIAL IV PRN (13:45)
[2017-09-04] MEDS ORDERED: IV FLUIDS COMPLETED PRN (14:15)
[2017-09-04] MEDS ORDERED: BUPIVACAINE 0.5 % 5 MG/1 ML MPF 30ML VIAL ONE (15:49)
[2017-09-04] MEDS ORDERED: LIDOCAINE HCL 2% 2 ML VIAL (20MG/ML) ONE (16:25)
[2017-09-04] MEDS ORDERED: EpHEDrine SULFATE 50MG/5ML SYR ONE (16:25)
[2017-09-04] MEDS ORDERED: PROPOFOL IV EMULSION 10 MG/ML 20 ML VIAL IV ONE (16:25)
[2017-09-04] MEDS ORDERED: GLYCOPYRROLATE INJ 0.2 MG/ML VIAL ONE (16:25)
[2017-09-04] MEDS ORDERED: MIDAZOLAM HCL 1 MG/ML 2ML VIAL ONE (16:25)
[2017-09-04] MEDS ORDERED: DEXAMETHASONE SOD INJ 4 MG/ML VIAL ONE ×2 (16:25→19:07)
[2017-09-04] MEDS ORDERED: ONDANSETRON INJ 2 MG/ML 2 ML VIAL ONE (16:25)
[2017-09-04] MEDS ORDERED: ROCURONIUM BROMIDE 10 MG/ML 5 ML VIAL IV ONE (16:25)
[2017-09-04] MEDS ORDERED: NEOSTIGMINE METHYLSULFATE 5 MG/5 ML SYR ONE (16:25)
[2017-09-04] MEDS ORDERED: SUCCINYLCHOLINE CHLORIDE 20 MG/ML 10 ML VIAL IV ONE (16:25)
[2017-09-04] MEDS ORDERED: LARYING-O-JET KIT (LTA) ONE (16:25)
[2017-09-04] MEDS ORDERED: FENTANYL CITRATE INJ 50 MCG/1 ML 2 ML VIAL ONE (16:26)
[2017-09-04 16:31] VITALS: PULSE 99; O2SAT 98
[2017-09-04] MEDS ORDERED: ATROPINE SULFATE 0.1 MG/ML 5ML SYR IV PRN (16:45)
[2017-09-04] MEDS ORDERED: ONDANSETRON INJ 2 MG/ML 2 ML VIAL IV PRN (16:45)
[2017-09-04] MEDS ORDERED: HYDROmorphone INJ 1 MG/ML SYR IV PRN (16:45)
[2017-09-04] MEDS ORDERED: EpHEDrine SULFATE INJ 50 MG/ML AMP IV PRN (16:45)
[2017-09-04] MEDS ORDERED: PROMETHAZINE HCL INJ 6.25 MG in SODIUM CHLORIDE 0.9% 50ML 50 ML IV PRN (16:45)
[2017-09-04] MEDS ORDERED: FENTANYL CITRATE INJ 50 MCG/1 ML 2 ML VIAL IV PRN (16:45)
[2017-09-04] MEDS ORDERED: CEFAZOLIN SOD 1 GM VIAL ONE (18:25)
--- NOTE | 2017-09-04 19:19 | [facility] Post Operative Brief Note ---
Immediate Operative Summary Operative Date Sep 04, 2017. Pre-Operative Diagnosis Incarcerated umbilical hernia Post-Operative Diagnosis Incarcerated umbilical hernia Procedure(s) Performed Open Umbilical Hernia Repair with mesh Surgeon Dr. Lozada Manager Highway Surgeon(s) None Estimated Blood Loss 5cc Findings Consistent with Post-Op Diagnosis Specimens None per surgeon Drains None Anesthesia Type General Complication(s) none Disposition Disposition: Surgical ICU
[2017-09-04] MEDS ORDERED: METOPROLOL TARTRATE 1 MG/ML VIAL ONE (19:41)
[2017-09-04] MEDS ORDERED: ALBUT/IPRATROP 3MG/0.5MG NEB 3 ML VIAL INH ONE (20:00)
[2017-09-04] MEDS ORDERED: LABETALOL HCL IV 5 MG/ML 20ML IV ONE (20:07)
--- NOTE | 2017-09-04 20:13 | OPERATIVE REPORT ---
DATE OF OPERATION: 09/04/2017 PREOPERATIVE DIAGNOSIS: Incarcerated umbilical hernia. POSTOPERATIVE DIAGNOSIS: Same. PROCEDURE: Repair of umbilical hernia. SURGEON: James Lozada MD FINDINGS: The fascial defect was 1.5 cm. There did appear to be some incarcerated material, what was in the sac; however, dissecting the sac free of the surrounding tissues. The material reduced spontaneously. It could not be seen within the abdomen and following opening of the sac. There were no other defects. The sac size was about the size of a large walnut. TECHNIQUE: The patient was given a general anesthetic and the area was prepped and draped in the usual sterile fashion. Transverse incision was made below the umbilicus, carried down through the subcutaneous tissue. It was dissected off the surrounding subcutaneous tissue inferiorly to the left and right. It was then peeled off the overlying dermis of the umbilical skin and away superiorly. It had mushroomed and was attached to the anterior surface of the fascia and those attachments were dissected until the edge of the fascia was identified. On the left side, the attachments of the sac to the edges of the fascial defect were divided. I then performed that circumferentially. I created an opening in the hernia sac to see if I can see what it been incarcerated, but was not able to. That opening was then reclosed with a 2-0 Vicryl running suture. The sac was placed back into its anatomic position. The fascia was undermined the peritoneum away for a distance of at least 3 cm. A 6.4 cm mesh was then placed in the preperitoneal position and retrofascial position. The struts of the mesh were sewn to the edges of the fascia using interrupted 0 PDS. The fascial opening was closed with a running #1 PDS. The area was inspected for bleeding, none was seen. The skin was closed with 4-0 Monocryl in a running subcuticular fashion. The skin was anesthetized with 0.5% Marcaine. The skin was cleansed, dried, benzoin placed, Steri-Strips applied. A cotton ball was placed into the umbilicus and an Op-Site was placed over it. Estimated blood loss was 5 mL. Sponge, needle and instrument counts were correct prior to closure. The patient tolerated the surgical procedure without complication and was transferred to recovery. I attest to the content of the Intraoperative Record and any orders documented therein. Any exception s are noted below.
--- NOTE | 2017-09-04 21:00 | Anesthesiology Progress Note ---
Anesthesia Post Op Note Date & Time Sep 04, 2017 at 20:57 Vital Signs Pain Intensity: 1 Vital Signs Past 12 Hours Date Time Temp Pulse Resp B/P (MAP) Pulse Ox O2 Delivery O2 Flow Rate FiO2 09/04/17 20:40 36.4 84 16 178/105 98 Nasal Cannula 3 09/04/17 20:30 90 16 171/119 98 Nasal Cannula 3 09/04/17 20:20 87 16 175/107 98 Nasal Cannula 3 09/04/17 20:10 89 16 159/102 98 Nasal Cannula 3 09/04/17 20:00 92 16 182/116 98 Nasal Cannula 3 09/04/17 19:50 91 16 162/111 95 Nasal Cannula 3 09/04/17 19:43 105 153/107 09/04/17 19:40 105 16 153/107 95 Nasal Cannula 3 09/04/17 19:30 104 16 166/110 95 Oxymask 6 09/04/17 19:20 36.6 111 16 164/110 93 Oxymask 6 09/04/17 17:27 98 20 154/97 (116) 96 Nasal Cannula 2 09/04/17 16:31 99 16 98 Nasal Cannula 3.0 09/04/17 15:34 99 17 163/97 (119) 92 Room Air 09/04/17 15:19 37.1 97 16 161/99 (119) 92 Room Air 09/04/17 15:01 196 18 149/101 97 09/04/17 13:30 96 18 174/121 94 Room Air 09/04/17 12:42 93 162/100 09/04/17 11:57 99 18 144/106 94 Room Air 09/04/17 10:29 96 20 166/98 98 Room Air 09/04/17 10:23 93 09/04/17 10:18 95 24 178/132 98 Room Air 09/04/17 09:29 36.9 105 18 182/105 100 Room Air Notes Mental Status: alert / awake / arousable, participated in evaluation Pt Amnestic to Procedure: Yes Nausea / Vomiting: adequately controlled Pain: adequately controlled Airway Patency, RR, SpO2: stable & adequate BP & HR: stable & adequate, see Notes Hydration State: stable & adequate Anesthetic Complications: no major complications apparent patient was tachycardic and hypertensive even after emergence and awakening in pacu. he is asymptomatic and in no pain. he was given a total of 10mg of metoprolol and 10mg of labetalol with improvement in his HR but minimal improvement in his BP. He was in afib throughout the procedure and recovery period. Given his history, I suspect that his blood pressure and afib are under less than ideal control as an outpatient, so as he was asymptomatic I elected not to be aggresive with lowering his BP as HR control was achieved. Plans were made to transfer the patient to telemetry for overnight monitoring.
[2017-09-04 21:30] VITALS: BP 173/108; PULSE 84; O2SAT 100
[2017-09-04 21:53] VITALS: O2SAT 99; Ht 182.9 cm; Wt 100.3 kg
[2017-09-04 22:00] VITALS: BP 174/117; PULSE 90; O2SAT 99
[2017-09-04] MEDS: SODIUM CHLORIDE 0.9% 1000ML 1,000 ML IV SCH (22:43)
[2017-09-04 23:00] VITALS: BP 165/95; PULSE 85; TEMP 36.8; O2SAT 99
[2017-09-04 23:40] VITALS: BP 136/88; PULSE 91; TEMP 36.7; O2SAT 94
[2017-09-05] VITALS (12 sets, daily range): BP systolic 130–196; BP diastolic 65–116; PULSE 82–123; TEMP 36.6–36.9; O2SAT 91–100
[2017-09-05] MEDS: ONDANSETRON INJ 2 MG/ML 2 ML VIAL IV PRN ×2 (01:10→19:31)
[2017-09-05] MEDS: SODIUM CHLORIDE 0.9% 1000ML 1,000 ML IV SCH (03:47)
[2017-09-05] MEDS ORDERED: HydrALAZINE HCL 20 MG/ML VIAL IV. STA (04:48)
[2017-09-05] MEDS ORDERED: METOPROLOL TARTRATE 1 MG/ML VIAL IV STA ×2 (05:00→06:15)
[2017-09-05] MEDS ORDERED: PROCHLORPERAZINE INJ 5 MG in SYRINGE 4 ML IV PRN (05:00)
[2017-09-05 06:09] LABS: HEMATOCRIT 39.9 % (42-52); HEMOGLOBIN 13.5 g/dL (14.0-18.0); IG# 0.03 K/uL (0.00-0.02); LYMPH % 5.3 %; LYMPH ABS # 0.53 K/uL (1.2-3.4); MEAN CELL VOLUME 104.2 fL (80-100); MEAN CORPUSCULAR HEMOGLOBIN 35.2 pg (25-34); MEAN CORPUSCULAR HGB CONC 33.8 g/dl (32-36); MEAN PLATELET VOLUME 10.5 fL (7.4-10.4); MONO % 4.1 %; MONO ABS # 0.41 K/uL (0.11-0.59); NEUT % 90.3 %; NEUT ABS # 9.01 K/uL (1.4-6.5); PLATELET COUNT 115 K/uL (130-400); RED CELL DISTRIBUTION WIDTH CV 16.4 % (11.5-14.5); RED CELL DISTRIBUTION WIDTH SD 62.7 fL (36.4-46.3); WHITE BLOOD COUNT 9.98 K/uL (4.8-10.8)
[2017-09-05 06:15] LABS: PTT PATIENT 26.1 SECONDS (21.0-31.0)
[2017-09-05] MEDS ORDERED: RANITIDINE HCL 50 MG/100 ML D5W IV ONE (06:30)
[2017-09-05 06:32] LABS: ALBUMIN 2.8 gm/dl (3.4-5.0); CREATININE 1.14 mg/dl (0.60-1.40); POTASSIUM 4.9 mmol/L (3.5-5.1)
[2017-09-05] MEDS ORDERED: LEVALBUTEROL/IPRATROPIUM NEB INH STA (06:39)
[2017-09-05 06:41] LABS: TOTAL PROTEIN 6.2 gm/dl (6.4-8.2)
[2017-09-05] MEDS ORDERED: LEVALBUTEROL/IPRATROPIUM NEB INH PRN (06:45)
[2017-09-05] MEDS ORDERED: LORAZEPAM 2 MG/ML 1 ML VIAL IV PRN (06:45)
[2017-09-05] MEDS ORDERED: RANITIDINE IV 50 MG in DEXTROSE 5% 100ML 100 ML IV ONE (06:45)
[2017-09-05] MEDS: LEVALBUTEROL 1.25MG/0.5ML NEB INH STA ×2 (06:46→10:08)
[2017-09-05] MEDS: IPRATROPIUM BROMIDE NEB SOLN 0.02% 2.5 ML VIAL INH STA ×2 (06:46→10:08)
[2017-09-05] MEDS ORDERED: MAGNESIUM SULFATE 1GM / D5W 100 ML IV STA (06:49)
[2017-09-05] MEDS ORDERED: LEVALBUTEROL 1.25MG/0.5ML NEB INH PRN (07:00)
[2017-09-05] MEDS ORDERED: IPRATROPIUM BROMIDE NEB SOLN 0.02% 2.5 ML VIAL INH PRN (07:00)
--- NOTE | 2017-09-05 07:31 | DIAGNOSTIC IMAGING REPORT ---
CHEST ONE VIEW PORTABLE HISTORY: wheeze COMPARISON: Chest 09/04/2017. FINDINGS: No pneumothorax. No pleural effusions. The heart remains mildly enlarged. There is diffuse interstitial thickening which has slightly progressed. IMPRESSION: Interval progression of the mild diffuse interstitial thickening. This could be due to developing congestive change or an atypical pneumonitis. Electronically signed by: Ricardo Lim M.D. 09/05/2017 7:30 AM Dictated Date/Time: 09/05/2017 7:29 AM
[2017-09-05] MEDS: METOPROLOL SUCC 25MG EXT REL TAB PO SCH (07:45)
[2017-09-05 08:13] LABS: HEMOGLOBIN A1C 5.2 % (4.5-5.6)
[2017-09-05] MEDS ORDERED: FUROSEMIDE INJ 40 MG in SYRINGE 0 ML IV ONE ×2 (08:15→17:00)
--- NOTE | 2017-09-05 09:06 | INTERNAL MEDICINE CONSULTATION ---
DATE OF CONSULTATION: 09/05/2017 PRIMARY CARE DOCTOR: RONDA Toro. Patient seen at the request of Dr. Lozada for evaluation of elevated BP. Patient was admitted yesterday under Surgery service for incarcerated umbilical hernia sp repair. Medical history is significant for chronic systolic heart failure (EF of 40%-50 % from a 2D echo, May 2016. hypertension, medication noncompliance. AFib off Coumadin because of hematuria , COPD, ongoing tobacco abuse, prostate issues as per records, chronic anemia (baseline hemoglobin 12-13) This morning, patient noted usual heartburn symptoms, which caused him to throw up. Patient would usually take Zantac in care home as needed for heartburn. SBP noted to be 190s. Patient denies chest pain, shortness of breath, headache symptoms. Cough symptoms productive of saliva with yellow mucus which patient attributes to heartburn. Patient stop his blood pressure medications years ago because he is not a "pill taker". Coumadin stopped by patient years ago because of hematuria. Outpatient urologic workup for abnormal PSA ongoing as per patient. MEDICAL HISTORY: As above. PREVIOUS SURGERIES: Hernia surgery, appendectomy, knee surgery. HOME MEDICATIONS: Include aspirin as needed, Zantac as needed for heartburn. ALLERGIES: DOXAZOSIN. FAMILY HISTORY: No family history of heart disease. PERSONAL AND SOCIAL HISTORY: Pack daily. No chronic intake of alcoholic beverages. Assisted inmate REVIEW OF SYSTEMS: As per HPI, all 10 systems reviewed. All other ROS negative. PHYSICAL EXAMINATION: VITAL SIGNS: Blood pressure was noted to be 193/100, pulse rate 110, RR 22, temperature 36.6, sats 98 on 3L. GENERAL: Obese. minimal respiratory distress. Uncomfortable SKIN: Pallor, warm. HEENT: Pale palpebral conjunctivae. No ptosis. Dry mucosa. NECK: Short, supple. CHEST: Diminished breath sounds. expiratory wheezes. HEART: irregular, systolic murmur. ABDOMEN: Some distention, minimal epigastric tenderness, EXTREMITIES: min LE edema, no tenderness, no other gross deformities. NEUROLOGIC: Coherent, no facial asymmetry , no other gross focality. LABORATORY: Hemoglobin was noted be 13.5, white cell 9.98, platelets noted to be 115. Sodium 134, potassium 4, CO2 27, crea 1, glucose 151. BNP 3780. Chest x-ray as per my interpretation congestion. EKG 09/04 showed an AFib, 95, LAD, LAFB, no ischemia. ASSESSMENT: 1. Hypertensive urgency hx medication noncompliance Multifactorial : reflux symptoms, Fluid overload (pulmonary congestion, hx systolic dysfunction/cardiomyopathy on TTE 2016) 3. Atrial fibrillation rate slightly uncontrolled secondary to all of above Patient stop maintenance cardiac medications years ago by choice. Off Coumadin because of history of hematuria. 3. Incarcerated umbilical hernia status post surgery (09/04) Tolerable postop pain 4. COPD, ongoing tobacco abuse pulmonary status at baseline 5. hx Prostate problems, elevated PSA as per records Outpatient workup contemplated as per patient 6. chronic anemia, hemoglobin at baseline 7. Thrombocytopenia. 8. hyperglycemia rule out DM. RECOMMENDATIONS : Continue telemetry monitoring for now in light of active cardiac issues. Initiate Toprol XL for maintenance antihypertensive medication, IV beta landen for now w/ recent emesis, Outpatient cardiology follow-up regarding CHF. Stop IV fluid. Lasix one dose. Nebs as needed Zantac for reflux. Nicotine patch as needed Check hemoglobin A1c DVT prophylaxis. SCDs as per post-op Surgery orders. Thank you very much for this consultation. Dr. Potter will follow patient's progress. ELLEND
[2017-09-05] MEDS: NICOTINE 21 MG/24 HR TDSY TD SCH (09:15)
[2017-09-05] MEDS ORDERED: LABETALOL HCL IV 5 MG/ML 20ML IV PRN (09:15)
--- NOTE | 2017-09-05 09:38 | Progress Note ---
Internal Med Progress Note Date of Service: Sep 05, 2017. Provider Documentation: SUBJECTIVE: Seen and examined at bedside Abdominal pain is controlled No BM, Flatus yet Denies chest pain, SOB, nausea, dizziness Reports Heartburn Chronic cough OBJECTIVE: Vital Signs-as noted below Physical Exam: General Appearance:Moderately built and nourished, no apparent distress Head: normocephalic, Atraumatic Eyes: normal inspection, EOMI, PERRL Neck: supple, Trachea midline Respiratory/Chest: Decreased breath sounds, B/L wheezes Cardiovascular: Irregularly, Irregular, +Tachycardia, No murmur Abdomen/GI:Soft, mild tender at surgical site, +ecchymosis, Bowel sounds present Extremities/Musculoskelatal:normal inspection, no edema Neurologic/Psych:AAOX3, grossly no focal neurological deficits Skin: normal color, warm Lab data as noted below. ASSESSMENT & PLAN: Incarcerated Umbilical Hernia S/P repair with mesh POD # 1 Pain control Diet per Surgical team Zofran PRN DVT Px per Primary team Hypertensive Urgency: H/O non compliance Pain could be contributing Not on any meds currently started on Metoprolol, lisinopril Also given Lasix as patient had pulmonary congestion on CXR IV Labetalol PRN Atrial Fibrillation: not on rate control/Rhythm control meds prior to admission Was on anticoagulation previously which was DCed 2/2 hematuria Continue Aspirin Started on Metoprolol for rate control Needs follow up with Cardiology as outpatient COPD: Ongoing Tobacco abuse: 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 Will benefit from maintenance inhalers upon DC Chronic Systolic CHF: Last ECHO 05/18/16: EF: 35-40% Continue Metoprolol, Lisinopril Consider starting on diuretic Thrombocytopenia: No acute bleeding issues monitor CBC GERD: continue Zantac DVT Px: SCDs for now Consider Heparin SQ if OK with surgery Disposition: Per Primary Team Vital Signs: Date Time Temp Pulse Resp B/P (MAP) Pulse Ox O2 Delivery O2 Flow Rate FiO2 09/05/17 15:12 36.9 103 22 130/87 (101) 94 09/05/17 12:00 98 Nasal Cannula 3.0 95 09/05/17 11:19 36.7 104 20 160/110 (127) 92 Room Air 09/05/17 08:00 98 Nasal Cannula 3.0 95 09/05/17 07:00 36.6 94 20 196/116 (142) 98 Nasal Cannula 09/05/17 06:45 165/65 (98) 09/05/17 06:24 101 215/105 09/05/17 05:34 151/99 (116) 09/05/17 05:19 110 165/101 09/05/17 04:00 Nasal Cannula 4.0 96 09/05/17 03:45 36.6 95 22 193/103 (133) 98 Nasal Cannula 3.0 177/115 (135) 09/05/17 00:33 Nasal Cannula 4.0 96 09/05/17 00:00 36.8 82 16 132/65 (87) 100 Nasal Cannula 4.0 09/04/17 23:40 36.7 91 17 136/88 (104) 94 Nasal Cannula 3.0 09/04/17 23:00 36.8 85 18 165/95 (118) 99 Nasal Cannula 4.0 09/04/17 22:00 90 18 174/117 (136) 99 Nasal Cannula 4.0 09/04/17 21:53 99 Nasal Cannula 4.0 09/04/17 21:30 84 15 173/108 (129) 100 Nasal Cannula 4.0 100 09/04/17 20:40 36.4 84 16 178/105 98 Nasal Cannula 3 09/04/17 20:30 90 16 171/119 98 Nasal Cannula 3 09/04/17 20:20 87 16 175/107 98 Nasal Cannula 3 09/04/17 20:10 89 16 159/102 98 Nasal Cannula 3 09/04/17 20:00 92 16 182/116 98 Nasal Cannula 3 09/04/17 19:50 91 16 162/111 95 Nasal Cannula 3 09/04/17 19:43 105 153/107 09/04/17 19:40 105 16 153/107 95 Nasal Cannula 3 09/04/17 19:30 104 16 166/110 95 Oxymask 6 09/04/17 19:20 36.6 111 16 164/110 93 Oxymask 6 09/04/17 17:27 98 20 154/97 (116) 96 Nasal Cannula 2 09/04/17 16:31 99 16 98 Nasal Cannula 3.0 Lab Results: Results Past 24 Hours Test 09/05/17 05:49 09/05/17 06:23 Range/Units White Blood Count 9.98 4.8-10.8 K/uL Red Blood Count 3.83 4.7-6.1 M/uL Hemoglobin 13.5 14.0-18.0 g/dL Hematocrit 39.9 42-52 % Mean Corpuscular Volume 104.2 80-100 fL Mean Corpuscular Hemoglobin 35.2 25-34 pg Mean Corpuscular Hemoglobin Concent 33.8 32-36 g/dl Platelet Count 115 130-400 K/uL Mean Platelet Volume 10.5 7.4-10.4 fL Neutrophils (%) (Auto) 90.3 % Lymphocytes (%) (Auto) 5.3 % Monocytes (%) (Auto) 4.1 % Eosinophils (%) (Auto) 0.0 % Basophils (%) (Auto) 0.0 % Neutrophils # (Auto) 9.01 1.4-6.5 K/uL Lymphocytes # (Auto) 0.53 1.2-3.4 K/uL Monocytes # (Auto) 0.41 0.11-0.59 K/uL Eosinophils # (Auto) 0.00 0-0.5 K/uL Basophils # (Auto) 0.00 0-0.2 K/uL RDW Standard Deviation 62.7 36.4-46.3 fL RDW Coefficient of Variation 16.4 11.5-14.5 % Immature Granulocyte % (Auto) 0.3 % Immature Granulocyte # (Auto) 0.03 0.00-0.02 K/uL Activated Partial Thromboplast Time 26.1 21.0-31.0 SECONDS Partial Thromboplastin Ratio 1.0 Sodium Level 137 136-145 mmol/L Potassium Level 4.9 3.5-5.1 mmol/L Chloride Level 108 98-107 mmol/L Carbon Dioxide Level 27 21-32 mmol/L Anion Gap 2.0 3-11 mmol/L Blood Urea Nitrogen 24 7-18 mg/dl Creatinine 1.14 0.60-1.40 mg/dl Est Creatinine Clear Calc Drug Dose 68.6 ml/min Estimated GFR () 72.5 Estimated GFR (Non- 62.6 BUN/Creatinine Ratio 20.9 10-20 Random Glucose 151 70-99 mg/dl Calcium Level 9.0 8.5-10.1 mg/dl Magnesium Level 1.9 1.8-2.4 mg/dl Total Bilirubin 1.2 0.2-1 mg/dl Direct Bilirubin 0.4 0-0.2 mg/dl Aspartate Amino Transf (AST/SGOT) 14 15-37 U/L Alanine Aminotransferase (ALT/SGPT) 19 12-78 U/L Alkaline Phosphatase 94 45-117 U/L Pro-B-Type Natriuretic Peptide 3780 0-900 pg/ml Total Protein 6.2 6.4-8.2 gm/dl Albumin 2.8 3.4-5.0 gm/dl Lipase 86 73-393 U/L Thyroid Stimulating Hormone (TSH) 1.170 0.300-4.500 uIu/ml Estimated Average Glucose 103 mg/dl Hemoglobin A1c 5.2 4.5-5.6 % Microbiology Results 09/04/17 MRSA DNA Surveillance Screen - Final, Complete Specimen Negative for MRSA by DNA Probe
[2017-09-05] MEDS ORDERED: ASPI-320 PO (09:41)
[2017-09-05] MEDS ORDERED: RANITIDINE HCL 150 MG TAB PO ONE (09:45)
--- NOTE | 2017-09-05 11:32 | Surgery Progress Note ---
Surgery Progress Note Date of Service Sep 05, 2017. Subjective Post OP Day: 1 (s/p umbilical hernia repair with mesh) + feeling well, + pain controlled, + diet (clear liquids), No bowel movement, No flatus, No nausea, No vomiting Objective Vital Signs: Date Time Temp Pulse Resp B/P (MAP) Pulse Ox O2 Delivery O2 Flow Rate FiO2 09/05/17 08:00 98 Nasal Cannula 3.0 95 09/05/17 07:00 36.6 94 20 196/116 (142) 98 Nasal Cannula 09/05/17 06:45 165/65 (98) 09/05/17 06:24 101 215/105 09/05/17 05:34 151/99 (116) 09/05/17 05:19 110 165/101 09/05/17 04:00 Nasal Cannula 4.0 96 09/05/17 03:45 36.6 95 22 193/103 (133) 98 Nasal Cannula 3.0 177/115 (135) 09/05/17 00:33 Nasal Cannula 4.0 96 09/05/17 00:00 36.8 82 16 132/65 (87) 100 Nasal Cannula 4.0 09/04/17 23:40 36.7 91 17 136/88 (104) 94 Nasal Cannula 3.0 09/04/17 23:00 36.8 85 18 165/95 (118) 99 Nasal Cannula 4.0 09/04/17 22:00 90 18 174/117 (136) 99 Nasal Cannula 4.0 09/04/17 21:53 99 Nasal Cannula 4.0 09/04/17 21:30 84 15 173/108 (129) 100 Nasal Cannula 4.0 100 09/04/17 20:40 36.4 84 16 178/105 98 Nasal Cannula 3 09/04/17 20:30 90 16 171/119 98 Nasal Cannula 3 09/04/17 20:20 87 16 175/107 98 Nasal Cannula 3 09/04/17 20:10 89 16 159/102 98 Nasal Cannula 3 09/04/17 20:00 92 16 182/116 98 Nasal Cannula 3 09/04/17 19:50 91 16 162/111 95 Nasal Cannula 3 09/04/17 19:43 105 153/107 09/04/17 19:40 105 16 153/107 95 Nasal Cannula 3 09/04/17 19:30 104 16 166/110 95 Oxymask 6 09/04/17 19:20 36.6 111 16 164/110 93 Oxymask 6 09/04/17 17:27 98 20 154/97 (116) 96 Nasal Cannula 2 09/04/17 16:31 99 16 98 Nasal Cannula 3.0 09/04/17 15:34 99 17 163/97 (119) 92 Room Air 09/04/17 15:19 37.1 97 16 161/99 (119) 92 Room Air 09/04/17 15:01 196 18 149/101 97 09/04/17 13:30 96 18 174/121 94 Room Air 09/04/17 12:42 93 162/100 09/04/17 11:57 99 18 144/106 94 Room Air General Appearance: WD/WN, no apparent distress Head: normocephalic, atraumatic Neck: trachea midline Respiratory/Chest: no respiratory distress, no accessory muscle use Abdomen: normal bowel sounds, non distended, soft, no organomegaly, no pulsatile mass, + tenderness (at incision site, appropriate post op) Incision(s): clean, dry, intact, ecchymosis, findings (steri strips and opsite dressing present intact) Laboratory Results: Results Past 24 Hours Test 09/04/17 12:40 09/04/17 15:13 09/05/17 05:49 09/05/17 06:23 Range/Units Urine Color DK YELLOW Urine Appearance CLEAR CLEAR Urine pH 6.0 4.5-7.5 Urine Specific [place] 1.021 1.000-1.030 Urine Protein NEG NEG Urine Glucose (UA) NEG NEG Urine Ketones NEG NEG Urine Occult Blood NEG NEG Urine Nitrite NEG NEG Urine Bilirubin NEG NEG Urine Urobilinogen NEG NEG Urine Leukocyte Esterase NEG NEG Lactic Acid Level 1.5 0.4-2.0 mmol/L White Blood Count 9.98 4.8-10.8 K/uL Red Blood Count 3.83 4.7-6.1 M/uL Hemoglobin 13.5 14.0-18.0 g/dL Hematocrit 39.9 42-52 % Mean Corpuscular Volume 104.2 80-100 fL Mean Corpuscular Hemoglobin 35.2 25-34 pg Mean Corpuscular Hemoglobin Concent 33.8 32-36 g/dl Platelet Count 115 130-400 K/uL Mean Platelet Volume 10.5 7.4-10.4 fL Neutrophils (%) (Auto) 90.3 % Lymphocytes (%) (Auto) 5.3 % Monocytes (%) (Auto) 4.1 % Eosinophils (%) (Auto) 0.0 % Basophils (%) (Auto) 0.0 % Neutrophils # (Auto) 9.01 1.4-6.5 K/uL Lymphocytes # (Auto) 0.53 1.2-3.4 K/uL Monocytes # (Auto) 0.41 0.11-0.59 K/uL Eosinophils # (Auto) 0.00 0-0.5 K/uL Basophils # (Auto) 0.00 0-0.2 K/uL RDW Standard Deviation 62.7 36.4-46.3 fL RDW Coefficient of Variation 16.4 11.5-14.5 % Immature Granulocyte % (Auto) 0.3 % Immature Granulocyte # (Auto) 0.03 0.00-0.02 K/uL Activated Partial Thromboplast Time 26.1 21.0-31.0 SECONDS Partial Thromboplastin Ratio 1.0 Sodium Level 137 136-145 mmol/L Potassium Level 4.9 3.5-5.1 mmol/L Chloride Level 108 98-107 mmol/L Carbon Dioxide Level 27 21-32 mmol/L Anion Gap 2.0 3-11 mmol/L Blood Urea Nitrogen 24 7-18 mg/dl Creatinine 1.14 0.60-1.40 mg/dl Est Creatinine Clear Calc Drug Dose 68.6 ml/min Estimated GFR () 72.5 Estimated GFR (Non- 62.6 BUN/Creatinine Ratio 20.9 10-20 Random Glucose 151 70-99 mg/dl Calcium Level 9.0 8.5-10.1 mg/dl Magnesium Level 1.9 1.8-2.4 mg/dl Total Bilirubin 1.2 0.2-1 mg/dl Direct Bilirubin 0.4 0-0.2 mg/dl Aspartate Amino Transf (AST/SGOT) 14 15-37 U/L Alanine Aminotransferase (ALT/SGPT) 19 12-78 U/L Alkaline Phosphatase 94 45-117 U/L Pro-B-Type Natriuretic Peptide 3780 0-900 pg/ml Total Protein 6.2 6.4-8.2 gm/dl Albumin 2.8 3.4-5.0 gm/dl Lipase 86 73-393 U/L Thyroid Stimulating Hormone (TSH) 1.170 0.300-4.500 uIu/ml Estimated Average Glucose 103 mg/dl Hemoglobin A1c 5.2 4.5-5.6 % Microbiology Results 09/04/17 MRSA DNA Surveillance Screen - Final, Complete Specimen Negative for MRSA by DNA Probe Assessment & Plan POD # 1 s/p umbilical hernia repair with mesh -vitals stable, tachycardic, afib -afebrile, no leukocytosis - nausea last evening, none this am - pain controlled -urinating Plan: continue current pain management Advance diet to full liquids continue IV Zofran as needed OOB to chair and ambulation Continue SCDs Appreciate medicine recs, continue current medical management Dr. Lozada has seen and examined patient, agrees with above
[2017-09-05] MEDS ORDERED: LISINOPRIL 5 MG TAB PO ONE (13:00)
[2017-09-05] MEDS: ALBUTEROL HFA 8 GM INHALER INH PRN (18:20)
[2017-09-05] MEDS: HEPARIN SOD 5000 UNIT/0.5 ML CARP SQ SCH ×2 (21:48→22:00)
[2017-09-06] MEDS: RANITIDINE HCL 150 MG TAB PO SCH ×3 (01:08→22:07)
[2017-09-06] MEDS: ALBUTEROL HFA 8 GM INHALER INH PRN (01:09)
[2017-09-06] MEDS: HEPARIN SOD 5000 UNIT/0.5 ML CARP SQ SCH ×3 (06:00→22:00)
[2017-09-06 06:02] LABS: HEMATOCRIT 37.8 % (42-52); HEMOGLOBIN 12.8 g/dL (14.0-18.0); MEAN CELL VOLUME 103.3 fL (80-100); MEAN CORPUSCULAR HGB CONC 33.9 g/dl (32-36); MEAN PLATELET VOLUME 10.2 fL (7.4-10.4); PLATELET COUNT 116 K/uL (130-400); RED CELL DISTRIBUTION WIDTH CV 16.4 % (11.5-14.5); RED CELL DISTRIBUTION WIDTH SD 61.7 fL (36.4-46.3); WHITE BLOOD COUNT 13.86 K/uL (4.8-10.8)
[2017-09-06 06:29] LABS: CALCIUM 9.2 mg/dl (8.5-10.1); CREATININE 1.15 mg/dl (0.60-1.40); POTASSIUM 4.2 mmol/L (3.5-5.1)
[2017-09-06 07:25] VITALS: BP 151/106; PULSE 130; TEMP 36.6; O2SAT 94
[2017-09-06] MEDS: METOPROLOL SUCC 25MG EXT REL TAB PO SCH (08:06)
[2017-09-06] MEDS: ASPIRIN 81 MG ECTAB PO SCH (08:06)
[2017-09-06] MEDS: NICOTINE 21 MG/24 HR TDSY TD SCH (08:07)
[2017-09-06] MEDS ORDERED: LISINOPRIL 10 MG TAB PO SCH (09:00)
[2017-09-06] MEDS ORDERED: RANITIDINE HCL 150 MG TAB PO SCH (09:00)
--- NOTE | 2017-09-06 09:16 | Progress Note ---
Internal Med Progress Note Date of Service: Sep 06, 2017. Provider Documentation: SUBJECTIVE: Seen and examined at bedside Reports Abdominal pain is controlled No BM, + Flatus Reports nausea, Chronic cough with minimal expectoration which is improving Denies chest pain, SOB, dizziness OBJECTIVE: Vital Signs-as noted below Physical Exam: General Appearance:Moderately built and nourished, no apparent distress Head: normocephalic, Atraumatic Eyes: normal inspection, EOMI, PERRL Neck: supple, Trachea midline Respiratory/Chest: Decreased breath sounds, B/L minimal wheezes Cardiovascular: Irregularly, Irregular, +Tachycardia, No murmur Abdomen/GI:Soft, mild tender at surgical site, +ecchymosis, Bowel sounds present Extremities/Musculoskelatal:normal inspection, no edema Neurologic/Psych:AAOX3, grossly no focal neurological deficits Skin: normal color, warm Lab data as noted below. 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 continue inhalers Chronic Systolic CHF: Last ECHO 05/18/16: EF: 35-40% Continue Metoprolol, Lisinopril Thrombocytopenia: No acute bleeding issues monitor CBC GERD: continue Zantac DVT Px: Heparin SQ Disposition: Per Primary Team Vital Signs: Date Time Temp Pulse Resp B/P (MAP) Pulse Ox O2 Delivery O2 Flow Rate FiO2 09/06/17 07:25 36.6 130 19 151/106 (121) 94 Room Air 09/06/17 04:00 Room Air 09/06/17 00:01 Room Air 09/05/17 23:26 36.9 109 12 138/96 (110) 91 Room Air 09/05/17 20:00 36.9 123 24 143/90 (107) 94 Room Air 09/05/17 20:00 94 Room Air 09/05/17 16:00 94 Room Air 4/25/18 15:12 36.9 103 22 130/87 (101) 94 09/05/17 12:00 98 Nasal Cannula 3.0 95 09/05/17 11:19 36.7 104 20 160/110 (127) 92 Room Air Lab Results: Results Past 24 Hours Test 09/06/17 05:31 Range/Units White Blood Count 13.86 4.8-10.8 K/uL Red Blood Count 3.66 4.7-6.1 M/uL Hemoglobin 12.8 14.0-18.0 g/dL Hematocrit 37.8 42-52 % Mean Corpuscular Volume 103.3 80-100 fL Mean Corpuscular Hemoglobin 35.0 25-34 pg Mean Corpuscular Hemoglobin Concent 33.9 32-36 g/dl RDW Standard Deviation 61.7 36.4-46.3 fL RDW Coefficient of Variation 16.4 11.5-14.5 % Platelet Count 116 130-400 K/uL Mean Platelet Volume 10.2 7.4-10.4 fL Sodium Level 137 136-145 mmol/L Potassium Level 4.2 3.5-5.1 mmol/L Chloride Level 104 98-107 mmol/L Carbon Dioxide Level 32 21-32 mmol/L Anion Gap 1.0 3-11 mmol/L Blood Urea Nitrogen 30 7-18 mg/dl Creatinine 1.15 0.60-1.40 mg/dl Est Creatinine Clear Calc Drug Dose 68.0 ml/min Estimated GFR () 71.7 Estimated GFR (Non- 61.9 BUN/Creatinine Ratio 26.4 10-20 Random Glucose 124 70-99 mg/dl Calcium Level 9.2 8.5-10.1 mg/dl Magnesium Level 2.1 1.8-2.4 mg/dl Pro-B-Type Natriuretic Peptide 4098 0-900 pg/ml
--- NOTE | 2017-09-06 09:34 | Surgery Progress Note ---
Surgery Progress Note Date of Service Sep 06, 2017. Subjective Post OP Day: 2 + flatus, + pain controlled, + nausea (mild occasional), No bowel movement, No vomiting Objective Vital Signs: Date Time Temp Pulse Resp B/P (MAP) Pulse Ox O2 Delivery O2 Flow Rate FiO2 09/06/17 07:25 36.6 130 19 151/106 (121) 94 Room Air 09/06/17 04:00 Room Air 09/06/17 00:01 Room Air 09/05/17 23:26 36.9 109 12 138/96 (110) 91 Room Air 09/05/17 20:00 36.9 123 24 143/90 (107) 94 Room Air 09/05/17 20:00 94 Room Air 09/05/17 16:00 94 Room Air 09/05/17 15:12 36.9 103 22 130/87 (101) 94 09/05/17 12:00 98 Nasal Cannula 3.0 95 09/05/17 11:19 36.7 104 20 160/110 (127) 92 Room Air General Appearance: WD/WN Abdomen: normal bowel sounds, non distended, soft, + pertinent finding ( ecchymosis around incision, mild incisional tenderness only) Incision(s): clean, dry, intact Laboratory Results: Results Past 24 Hours Test 09/06/17 05:31 Range/Units White Blood Count 13.86 4.8-10.8 K/uL Red Blood Count 3.66 4.7-6.1 M/uL Hemoglobin 12.8 14.0-18.0 g/dL Hematocrit 37.8 42-52 % Mean Corpuscular Volume 103.3 80-100 fL Mean Corpuscular Hemoglobin 35.0 25-34 pg Mean Corpuscular Hemoglobin Concent 33.9 32-36 g/dl RDW Standard Deviation 61.7 36.4-46.3 fL RDW Coefficient of Variation 16.4 11.5-14.5 % Platelet Count 116 130-400 K/uL Mean Platelet Volume 10.2 7.4-10.4 fL Sodium Level 137 136-145 mmol/L Potassium Level 4.2 3.5-5.1 mmol/L Chloride Level 104 98-107 mmol/L Carbon Dioxide Level 32 21-32 mmol/L Anion Gap 1.0 3-11 mmol/L Blood Urea Nitrogen 30 7-18 mg/dl Creatinine 1.15 0.60-1.40 mg/dl Est Creatinine Clear Calc Drug Dose 68.0 ml/min Estimated GFR () 71.7 Estimated GFR (Non- 61.9 BUN/Creatinine Ratio 26.4 10-20 Random Glucose 124 70-99 mg/dl Calcium Level 9.2 8.5-10.1 mg/dl Magnesium Level 2.1 1.8-2.4 mg/dl Pro-B-Type Natriuretic Peptide 4098 0-900 pg/ml Assessment & Plan S/P repair of incarcerated umbilical hernia Good peristalsis A fib as per Internal medicine Ambulate
[2017-09-06] MEDS: FLUTICASONE/SALMETEROL 250/50 (ADVAIR) 14 PUFF/1 INHALER INH SCH ×2 (10:30→19:57)
[2017-09-06 11:21] VITALS: BP 144/98; PULSE 115; TEMP 36.9; O2SAT 96
[2017-09-06] MEDS ORDERED: OXYC-57 PO (12:52)
--- NOTE | 2017-09-06 12:52 | Discharge Instructions ---
Discharge Instructions Date of Service Sep 06, 2017. Admission Reason for Admission: Incarcerated Umbilical Hernia Discharge Discharge Diagnosis / Problem: same Discharge Goals Goal(s): Decrease discomfort, Improve function Activity Recommendations Activity Limitations: per Instructions/Follow-up section No heavy lifting over 10 pounds for 6 weeks No strenuous activity until cleared by surgeon No submerging incisions underwater for 2 weeks (no bathing, swimming, or hot tubs) No driving while taking narcotic pain medication or until you are pain free . Instructions / Follow-Up Instructions / Follow-Up You may shower on Sunday. Remove clear dressing and cotton ball. Leave steri strips on incision for 7 days after your surgery. They may fall off on their own that is okay. Walking and light activity is encouraged to prevent blood clots from forming in your legs You will be given narcotic pain medication for moderate to severe pain. This medication may make you drowsy and can cause constipation. To combat constipation, drink plenty of water daily, daily walking, and may take stool softener daily. You may take extra strength Ibuprofen in between doses of Percocet for mild pain but DO NOT take Tylenol in between Percocet as Percocet already has Tylenol in it. When you are no longer taking Percocet you may take extra strength Tylenol as needed for pain Follow-up in surgical office in 2 weeks, please call office at [phone] to make an appointment. Current Hospital Diet Patient's current hospital diet: Regular Diet Discharge Diet Recommended Diet: Regular Diet Procedures Procedures Performed: Open Umbilical Hernia Repair with mesh Pending Studies Studies pending at discharge: no Laboratory Results Hemoglobin A1c Test 09/05/17 06:23 Range/Units Estimated Average Glucose 103 mg/dl Hemoglobin A1c 5.2 4.5-5.6 % Medical Emergencies . Who to Call and When: Medical Emergencies: If at any time you feel your situation is an emergency, please call 911 immediately. . Non-Emergent Contact Non-Emergency issues call your: Primary Care Provider, Surgeon Call Non-Emergent contact if: you have a fever, temperature is above 101, your pain is not controlled, your pain is worsening, your pain is unusual for you, wound has increased drainage, wound has increased redness, wound has increased pain . "Provider Documentation" section prepared by Yoanna Boss. . [place] Drug Monitoring Program Search Results: patient reviewed within database, no issues identified
[2017-09-06] MEDS: METOPROLOL TARTRATE 25 MG TAB PO SCH ×2 (14:25→19:57)
[2017-09-06 15:25] VITALS: BP 158/97; PULSE 116; TEMP 36.7; O2SAT 94
[2017-09-06] MEDS ORDERED: FAMOTIDINE IV INJ 20 MG in DEXTROSE 5% 100ML 100 ML IV ONE (18:45)
[2017-09-06] MEDS ORDERED: ALUMINUM/MAGNESIUM SUSP 30 ML UDC ONE (18:51)
[2017-09-06] MEDS ORDERED: FAMOTIDINE IV INJ 20 MG in SYRINGE 3 ML IV ONE (19:00)
[2017-09-06 19:20] VITALS: BP 158/97; PULSE 120; TEMP 36.7; O2SAT 94
[2017-09-06 23:17] VITALS: BP 148/106; PULSE 115; TEMP 37; O2SAT 93
[2017-09-07] VITALS (10 sets, daily range): BP systolic 145–157; BP diastolic 89–110; PULSE 106–119; TEMP 36.5–36.8; O2SAT 90–98
[2017-09-07] MEDS: METOPROLOL TARTRATE 25 MG TAB PO SCH ×3 (02:11→22:20)
[2017-09-07] MEDS: HEPARIN SOD 5000 UNIT/0.5 ML CARP SQ SCH ×3 (06:00→22:00)
[2017-09-07 06:15] LABS: HEMATOCRIT 38.9 % (42-52); HEMOGLOBIN 13.2 g/dL (14.0-18.0); MEAN CELL VOLUME 102.9 fL (80-100); MEAN CORPUSCULAR HEMOGLOBIN 34.9 pg (25-34); MEAN CORPUSCULAR HGB CONC 33.9 g/dl (32-36); MEAN PLATELET VOLUME 10.8 fL (7.4-10.4); PLATELET COUNT 105 K/uL (130-400); RED CELL DISTRIBUTION WIDTH CV 16.3 % (11.5-14.5); RED CELL DISTRIBUTION WIDTH SD 60.5 fL (36.4-46.3); WHITE BLOOD COUNT 11.03 K/uL (4.8-10.8)
[2017-09-07 06:45] LABS: CALCIUM 8.7 mg/dl (8.5-10.1); CREATININE 1.08 mg/dl (0.60-1.40); POTASSIUM 4.2 mmol/L (3.5-5.1)
[2017-09-07] MEDS: RANITIDINE HCL 150 MG TAB PO SCH ×2 (07:37→22:17)
[2017-09-07] MEDS: ALUMINUM/MAGNESIUM SUSP 30 ML UDC PO PRN (07:37)
[2017-09-07] MEDS: FLUTICASONE/SALMETEROL 250/50 (ADVAIR) 14 PUFF/1 INHALER INH SCH ×2 (07:38→22:17)
[2017-09-07] MEDS: ASPIRIN 81 MG ECTAB PO SCH (07:38)
[2017-09-07] MEDS: NICOTINE 21 MG/24 HR TDSY TD SCH (07:38)
[2017-09-07] MEDS: LISINOPRIL 20 MG TAB PO SCH (08:46)
[2017-09-07] MEDS ORDERED: METOPROLOL TARTRATE 50 MG TAB PO SCH (09:00)
--- NOTE | 2017-09-07 09:28 | Progress Note ---
Internal Med Progress Note Date of Service: Sep 07, 2017. Provider Documentation: SUBJECTIVE: Seen and examined at bedside Denies chest pain, palpitations, SOB, dizziness, abdominal pain + Flatus, No BM yet No other complaints OBJECTIVE: Vital Signs-as noted below Physical Exam: General Appearance:Moderately built and nourished, no apparent distress Head: normocephalic, Atraumatic Eyes: normal inspection, EOMI, PERRL Neck: supple, Trachea midline Respiratory/Chest: Decreased breath sounds, B/L scattered wheezes Cardiovascular: Irregularly, Irregular, +Tachycardia, No murmur Abdomen/GI:Soft, mild tender at surgical site, +ecchymosis, Bowel sounds present Extremities/Musculoskelatal:normal inspection, no edema Neurologic/Psych:AAOX3, grossly no focal neurological deficits Skin: normal color, warm Lab data as noted below. 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 Nicotine patch continue inhalers Chronic Systolic CHF: Last ECHO 05/18/16: EF: 35-40% Continue Metoprolol, Lisinopril Thrombocytopenia: No acute bleeding issues monitor CBC GERD: continue Zantac DVT Px: Heparin SQ Disposition: Per Primary Team Vital Signs: Date Time Temp Pulse Resp B/P (MAP) Pulse Ox O2 Delivery O2 Flow Rate FiO2 09/07/17 08:00 98 Nasal Cannula 3.0 95 09/07/17 07:30 36.7 115 20 145/102 (116) 94 Room Air 09/07/17 04:32 36.7 112 18 153/110 (124) 90 Room Air 09/07/17 04:00 Room Air 09/07/17 02:10 112 150/97 (114) 09/07/17 00:01 Room Air 09/06/17 23:17 37.0 115 20 148/106 (120) 93 Room Air 09/06/17 20:04 Room Air 09/06/17 19:20 36.7 120 22 158/97 (117) 94 09/06/17 16:00 Room Air 09/06/17 15:25 36.7 116 20 158/97 (117) 94 Room Air 09/06/17 12:00 Room Air 09/06/17 11:21 36.9 115 20 144/98 (113) 96 Room Air Lab Results: Results Past 24 Hours Test 09/07/17 05:38 Range/Units White Blood Count 11.03 4.8-10.8 K/uL Red Blood Count 3.78 4.7-6.1 M/uL Hemoglobin 13.2 14.0-18.0 g/dL Hematocrit 38.9 42-52 % Mean Corpuscular Volume 102.9 80-100 fL Mean Corpuscular Hemoglobin 34.9 25-34 pg Mean Corpuscular Hemoglobin Concent 33.9 32-36 g/dl RDW Standard Deviation 60.5 36.4-46.3 fL RDW Coefficient of Variation 16.3 11.5-14.5 % Platelet Count 105 130-400 K/uL Mean Platelet Volume 10.8 7.4-10.4 fL Sodium Level 141 136-145 mmol/L Potassium Level 4.2 3.5-5.1 mmol/L Chloride Level 107 98-107 mmol/L Carbon Dioxide Level 32 21-32 mmol/L Anion Gap 3.0 3-11 mmol/L Blood Urea Nitrogen 24 7-18 mg/dl Creatinine 1.08 0.60-1.40 mg/dl Est Creatinine Clear Calc Drug Dose 72.5 ml/min Estimated GFR () 77.4 Estimated GFR (Non- 66.8 BUN/Creatinine Ratio 21.9 10-20 Random Glucose 111 70-99 mg/dl Calcium Level 8.7 8.5-10.1 mg/dl
[2017-09-07] MEDS ORDERED: METOPROLOL TARTRATE 25 MG TAB PO ONE (10:45)
--- NOTE | 2017-09-07 11:06 | Surgery Progress Note ---
Surgery Progress Note Date of Service Sep 07, 2017. Subjective Post OP Day: 3 (s/p umbilical hernia repair with mesh) + feeling well, + complaints (some nausea, no vomiting), + flatus, + pain controlled, + nausea, + diet (regular diet), No chest pain, No SOB, No bowel movement, No vomiting Objective Vital Signs: Date Time Temp Pulse Resp B/P (MAP) Pulse Ox O2 Delivery O2 Flow Rate FiO2 09/07/17 08:00 98 Nasal Cannula 3.0 95 09/07/17 07:30 36.7 115 20 145/102 (116) 94 Room Air 09/07/17 04:32 36.7 112 18 153/110 (124) 90 Room Air 09/07/17 04:00 Room Air 09/07/17 02:10 112 150/97 (114) 09/07/17 00:01 Room Air 09/06/17 23:17 37.0 115 20 148/106 (120) 93 Room Air 09/06/17 20:04 Room Air 09/06/17 19:20 36.7 120 22 158/97 (117) 94 09/06/17 16:00 Room Air 09/06/17 15:25 36.7 116 20 158/97 (117) 94 Room Air 09/06/17 12:00 Room Air 09/06/17 11:21 36.9 115 20 144/98 (113) 96 Room Air General Appearance: WD/WN, no apparent distress Head: normocephalic, atraumatic Neck: trachea midline Respiratory/Chest: normal breath sounds, no respiratory distress, no accessory muscle use, + wheezing (expiratory) Cardiovascular: + irregularly irregular Abdomen: normal bowel sounds, non tender, non distended, soft, no organomegaly , no pulsatile mass, + pertinent finding (ecchymosis of the lower abdomen) Incision(s): clean, dry, intact, no erythema, ecchymosis Laboratory Results: Results Past 24 Hours Test 09/07/17 05:38 Range/Units White Blood Count 11.03 4.8-10.8 K/uL Red Blood Count 3.78 4.7-6.1 M/uL Hemoglobin 13.2 14.0-18.0 g/dL Hematocrit 38.9 42-52 % Mean Corpuscular Volume 102.9 80-100 fL Mean Corpuscular Hemoglobin 34.9 25-34 pg Mean Corpuscular Hemoglobin Concent 33.9 32-36 g/dl RDW Standard Deviation 60.5 36.4-46.3 fL RDW Coefficient of Variation 16.3 11.5-14.5 % Platelet Count 105 130-400 K/uL Mean Platelet Volume 10.8 7.4-10.4 fL Sodium Level 141 136-145 mmol/L Potassium Level 4.2 3.5-5.1 mmol/L Chloride Level 107 98-107 mmol/L Carbon Dioxide Level 32 21-32 mmol/L Anion Gap 3.0 3-11 mmol/L Blood Urea Nitrogen 24 7-18 mg/dl Creatinine 1.08 0.60-1.40 mg/dl Est Creatinine Clear Calc Drug Dose 72.5 ml/min Estimated GFR () 77.4 Estimated GFR (Non- 66.8 BUN/Creatinine Ratio 21.9 10-20 Random Glucose 111 70-99 mg/dl Calcium Level 8.7 8.5-10.1 mg/dl Assessment & Plan POD # 3 s/p umbilical hernia repair with mesh -vitals stable, tachycardic, afib -afebrile, no leukocytosis - nausea but no vomiting, tolerated regular diet - pain controlled - urinating - + flatus Plan: continue current pain management continue regular diet continue IV Zofran as needed OOB to chair and ambulation Continue SCDs, SQ Heparin Spoke with DR. Potter, patient noncompliant, increasing dose of metoprolol today to 75 mg BID, and Lisinopril to 20 mg daily. Recommend keeping patient one more evening for better heart rate and bp control. Possible discharge back to correctional facility tomorrow morning
[2017-09-07] MEDS ORDERED: LISI-725 PO (11:21)
[2017-09-08] VITALS (7 sets, daily range): BP systolic 148–156; BP diastolic 95–103; PULSE 112–117; TEMP 36.5–37; O2SAT 94–98
[2017-09-08] MEDS: HEPARIN SOD 5000 UNIT/0.5 ML CARP SQ SCH ×2 (05:25→14:00)
[2017-09-08 06:14] LABS: CALCIUM 8.8 mg/dl (8.5-10.1); CREATININE 1.03 mg/dl (0.60-1.40)
--- NOTE | 2017-09-08 07:21 | Surgery Progress Note ---
Surgery Progress Note Date of Service Sep 08, 2017. Subjective Post OP Day: 4 + feeling well, + flatus, + pain controlled, + diet (Tolerating regular diet), No complaints, No bowel movement, No nausea, No vomiting Objective Vital Signs: Date Time Temp Pulse Resp B/P (MAP) Pulse Ox O2 Delivery O2 Flow Rate FiO2 09/08/17 04:00 Room Air 09/08/17 03:19 37.0 117 17 148/95 (112) 94 Room Air 09/07/17 23:59 Room Air 09/07/17 23:37 36.7 115 17 157/109 (125) 95 Room Air 09/07/17 20:00 Room Air 09/07/17 19:52 36.7 106 18 153/89 (110) 96 Room Air 09/07/17 16:00 98 Nasal Cannula 3.0 95 09/07/17 15:35 36.8 111 18 149/97 (114) 95 Room Air 09/07/17 12:24 36.5 119 20 145/96 (112) 94 Room Air 09/07/17 12:00 98 Room Air 94 09/07/17 08:00 98 Nasal Cannula 3.0 95 09/07/17 07:30 36.7 115 20 145/102 (116) 94 Room Air General Appearance: WD/WN, no apparent distress Head: normocephalic, atraumatic Respiratory/Chest: no respiratory distress, no accessory muscle use Abdomen: non tender, non distended, soft, no organomegaly Incision(s): clean, dry, intact, no erythema, no drainage, ecchymosis Laboratory Results: Results Past 24 Hours Test 09/08/17 05:09 Range/Units Sodium Level 140 136-145 mmol/L Potassium Level 4.0 3.5-5.1 mmol/L Chloride Level 108 98-107 mmol/L Carbon Dioxide Level 29 21-32 mmol/L Anion Gap 3.0 3-11 mmol/L Blood Urea Nitrogen 22 7-18 mg/dl Creatinine 1.03 0.60-1.40 mg/dl Est Creatinine Clear Calc Drug Dose 76.0 ml/min Estimated GFR () 82.0 Estimated GFR (Non- 70.7 BUN/Creatinine Ratio 21.5 10-20 Random Glucose 119 70-99 mg/dl Calcium Level 8.8 8.5-10.1 mg/dl Magnesium Level 2.1 1.8-2.4 mg/dl Assessment & Plan POD #4 s/p umbilical hernia repair w/ mesh Covering for [facility] General Surgery Doing well, reports no pain, . Tolerating regular diet, No N/V. Urinating without issue. +flatus. Patient reports he would like to go back to correctional facility today. Afib, tachycardia - HR 117, BP 148/95 this AM - awaiting AM BP meds. Continue ambulation, SCDs, SQ heparin. Probable d/c today. Instructions and medications in chart. Will discuss findings with Dr. Domínguez. Please contact with questions or concerns.
[2017-09-08] MEDS: FLUTICASONE/SALMETEROL 250/50 (ADVAIR) 14 PUFF/1 INHALER INH SCH (07:58)
[2017-09-08] MEDS: RANITIDINE HCL 150 MG TAB PO SCH (07:59)
[2017-09-08] MEDS: METOPROLOL TARTRATE 25 MG TAB PO SCH (07:59)
[2017-09-08] MEDS: ASPIRIN 81 MG ECTAB PO SCH (07:59)
[2017-09-08] MEDS: NICOTINE 21 MG/24 HR TDSY TD SCH (07:59)
[2017-09-08] MEDS: LISINOPRIL 20 MG TAB PO SCH (07:59)
[2017-09-08] MEDS ORDERED: TPRSR/100 PO (08:48)
[2017-09-08] MEDS ORDERED: PRVHFAIN INH (08:54)
[2017-09-08] MEDS ORDERED: ADVIN25050 INH (08:54)
[2017-09-08] MEDS ORDERED: PANTOprazole SOD 40 MG TAB PO SCH (09:00)
--- NOTE | 2017-09-08 09:00 | Progress Note ---
Internal Med Progress Note Date of Service: Sep 08, 2017. Provider Documentation: SUBJECTIVE: Seen and examined at bedside Had BM Did not take his night dose of Metoprolol Denies chest pain, palpitations, SOB, dizziness, abdominal pain No complaints OBJECTIVE: Vital Signs-as noted below Physical Exam: General Appearance:Moderately built and nourished, no apparent distress Head: normocephalic, Atraumatic Eyes: normal inspection, EOMI, PERRL Neck: supple, Trachea midline Respiratory/Chest: Decreased breath sounds, B/L scattered wheezes Cardiovascular: Irregularly, Irregular, +Tachycardia, No murmur Abdomen/GI:Soft, mild tender at surgical site, +ecchymosis, Bowel sounds present Extremities/Musculoskelatal:normal inspection, no edema Neurologic/Psych:AAOX3, grossly no focal neurological deficits Skin: normal color, warm Lab data as noted below. ASSESSMENT & PLAN: Incarcerated Umbilical Hernia S/P repair with mesh POD # 4 Pain is controlled Tolerating diet Zofran PRN Surgery on board Hypertensive Urgency: H/O non compliance Pain could be contributing Not on any meds prior to admission Continue Metoprolol, lisinopril Plan to discharge on Metoprolol 10mg daily and Lisinopril 20mg daily Atrial Fibrillation: not on rate control/Rhythm control meds prior to admission Was on anticoagulation previously which was DCed 2/2 hematuria Continue Aspirin continue Metoprolol Noncompliant with medications (Refused night dose of metoprolol) Planned to discharge on Metoprolol succinate 100mg daily: discussed with cardiology Needs follow up with Cardiology as outpatient COPD: Ongoing Tobacco abuse: Continue DuoNebs PRN 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 Nicotine patch continue inhalers Chronic Systolic CHF: Last ECHO 05/18/16: EF: 35-40% Continue Metoprolol, Lisinopril Thrombocytopenia: No acute bleeding issues monitor CBC GERD: continue Zantac DVT Px: Heparin SQ Disposition: Per Primary Team Noted plan for discharge back to correctional facility Vital Signs: Date Time Temp Pulse Resp B/P (MAP) Pulse Ox O2 Delivery O2 Flow Rate FiO2 09/08/17 07:23 36.5 112 20 155/103 (120) 95 09/08/17 04:00 Room Air 09/08/17 03:19 37.0 117 17 148/95 (112) 94 Room Air 09/07/17 23:59 Room Air 09/07/17 23:37 36.7 115 17 157/109 (125) 95 Room Air 09/07/17 20:00 Room Air 09/07/17 19:52 36.7 106 18 153/89 (110) 96 Room Air 09/07/17 16:00 98 Nasal Cannula 3.0 95 09/07/17 15:35 36.8 111 18 149/97 (114) 95 Room Air 09/07/17 12:24 36.5 119 20 145/96 (112) 94 Room Air 09/07/17 12:00 98 Room Air 94 Lab Results: Results Past 24 Hours Test 09/08/17 05:09 Range/Units Sodium Level 140 136-145 mmol/L Potassium Level 4.0 3.5-5.1 mmol/L Chloride Level 108 98-107 mmol/L Carbon Dioxide Level 29 21-32 mmol/L Anion Gap 3.0 3-11 mmol/L Blood Urea Nitrogen 22 7-18 mg/dl Creatinine 1.03 0.60-1.40 mg/dl Est Creatinine Clear Calc Drug Dose 76.0 ml/min Estimated GFR () 82.0 Estimated GFR (Non- 70.7 BUN/Creatinine Ratio 21.5 10-20 Random Glucose 119 70-99 mg/dl Calcium Level 8.8 8.5-10.1 mg/dl Magnesium Level 2.1 1.8-2.4 mg/dl
[2017-09-08] MEDS: ALUMINUM/MAGNESIUM SUSP 30 ML UDC PO PRN (16:05)
--- NOTE | 2017-09-10 11:57 | Discharge Summary ---
Discharge Summary Dates Admission Date / Time: Sep 06, 2017 at 12:45 Discharge Date: Sep 08, 2017 Dispostion / Condition Discharge Disposition: [facility] facility Condition at Discharge: Good Principal Diagnosis (1) A-fib (2) Hypertensive urgency (3) Incarcerated umbilical hernia Problem List (1) COPD (chronic obstructive pulmonary disease) (2) A-fib Consultations / Procedures Consultations: Medicine Procedures: Open umbilical hernia repair with mesh Vaccinations: None Pending Studies / Follow-Up None Medication Reconciliation New Medications: Lisinopril (Zestril) 20 Mg Tab 20 MG PO DAILY, #30 TAB 3 Refills Metoprolol Succinate (Metoprolol Succinate ER) 100 Mg Tabcr 100 MG PO DAILY for 30 Days, #30 EA Oxycodone/Acetaminophen 5MG/325MG (Percocet 5MG/325MG) Tab 1 TABLET PO Q4H PRN for Pain, #18 TAB Albuterol (Ventolin Hfa) 60 Puffs/5400 Mcg Aers 2 PUFFS INH Q6H PRN for SOB, wheezing for 30 Days, #1 INHALER 1 Refill Fluticasone Prop/Salmeterol (Advair Diskus 250-50 Mcg/Dose) 14 Puff/1 Inhaler Aerp 1 PUFF INH BID for 30 Days, #1 INHALER 1 Refill Continued Medications: Aspirin (Aspirin EC Low Dose) 81 Mg Ectab 81 MG PO DAILY Admission HPI Per the Admitting provider: Good states he has had the hernia for awhile now off and on. States he will noticed that it bulges out and is able to reduce it back in on its own for the past couple of weeks however last night felt a popping sensation and was unable to push the hernia back in. Associated abdominal pain that took him down to his knees. Associated nausea and vomiting this morning. Pain mostly in the periumbilical region with some radiation to the LLQ. Last bowel movement was yesterday morning, soft, formed without any blood. Has had more gas recently and that is not usual for him. Usually regular with bowel movements daily. No history of hernia repair before. Had an open appendectomy in 1950's no other abdominal surgeries. History of atrial fibrillation . States he is not on any blood thinning agents but takes an aspirin daily. History of COPD with 50 year history of smoking. Takes inhaler prn. Ultrasound of the abdomen showed a 3.5 x 1.7 cm fluid filled and small bowel in which bowel component is reducible. CXR showing no evidence of bowel obstruction Labs show no leukocytosis. Vitals stable other than some tachycardia most likely secondary to pain. Last pain medication was 2 hours ago. States pain is starting to increase. Admission Exam Per the Admitting provider: General Appearance: WD/WN, no apparent distress Head: normocephalic, atraumatic Eyes: sclerae normal ENT: hearing grossly normal Neck: trachea midline Respiratory/Chest: no respiratory distress, no accessory muscle use, + wheezing (expiratory wheezing) Cardiovascular: no murmur, + irregularly irregular Abdomen/GI: soft, no organomegaly, no pulsatile mass, + tenderness (no peritonitis or rigidity), + hernia (umbilical hernia about 4 cm size, some cyanosis of the overlying skin, nonreducible on examination) Back: normal inspection Extremities/Musculoskelatal: normal inspection, no pedal edema Neurologic/Psych: alert, normal mood/affect, oriented x 3 Skin: normal color, warm/dry, no rash Hospital Course (1) A-fib Atrial Fibrillation: not on rate control/Rhythm control meds prior to admission Was on anticoagulation previously which was DCed 2/2 hematuria Continue Aspirin continue Metoprolol Noncompliant with medications (Refused night dose of metoprolol night prior to discharge) Planned to discharge on Metoprolol succinate 100mg daily: discussed with cardiology Needs follow up with Cardiology as outpatient (2) Hypertensive urgency Hypertensive Urgency: H/O non compliance Pain could be contributing Not on any meds prior to admission Continue Metoprolol, lisinopril Plan to discharge on Metoprolol 100mg daily and Lisinopril 20mg daily (3) Incarcerated umbilical hernia Patient was taken to operating room for open umbilical hernia repair with possible mesh. Patient tolerated procedure well without any complications. Mesh was used in the procedure. Patient transferred back to Telemetry post op. Diet was advanced to clear liquids, IV Fluids, IV pain medication with PO Percocet as needed, IV Zofran for nausea, activity as tolerated, SCDs, incentive spirometry. Patient evaluated POD # 1, tolerating clear liquids, mild nausea, no vomiting, pain controlled and improved, +flatus, no bowel movement. Diet was advanced to full liquids. POD # 2, tolerating full liquids , pain minimal, no bowel movement but passing flatus, still in afib with hypertension. Medicine was controlling the HTN and afib with Metoprolol as well as starting subcutaneous heparin on POD # 1. Patient had some bruising of the abdomen near incision site. POD # 3 patient tolerated full liquids, diet was advanced to regular diet. Patient was kept one more night for heart rate control and hypertension control. Patient discharged back to correctional facility on POD # 4 in stable condition. Discharge Instructions as given to patient Copies To Primary Care Provider: Cortez BOND. Problem Qualifiers (1) A-fib: Atrial fibrillation type: chronic Qualified Codes: I48.2 - Chronic atrial fibrillation
== END 2017-09-08 16:28 | disposition home or self-care (01) | DRG 354 ==
LOC: C.EDB 09:28 → C.2E 13:40 → EDBEDREQ 13:57 → CANRESERV 14:13 → ENRESERV 14:13 → EDBEDREQSVC 20:15 → EDBEDREQ 20:15 → EDBEDREQTM 20:30 → ENRESERV 20:37 → OBSVTOIN 09-06 12:45
PROVIDERS: ADMIT Surgery; ATTEND Surgery
PROC: 0WUF0JZ Supplement Abdominal Wall with Synthetic Substitute, Open Approach (ICD-10-PCS; principal; 2017-09-04 12:00)
DX: K42.9 Umbilical hernia without obstruction or gangrene (principal); I50.22 Chronic systolic (congestive) heart failure; F17.200 Nicotine dependence, unspecified, uncomplicated; I48.91 Unspecified atrial fibrillation; I16.0 Hypertensive urgency; J44.9 Chronic obstructive pulmonary disease, unspecified; Z79.82 Long term (current) use of aspirin; D69.6 Thrombocytopenia, unspecified; K21.9 Gastro-esophageal reflux disease without esophagitis

== ENCOUNTER 2017-12-09 21:45 | Inpatient (IN) | payer OTHER ==
[~2017-12-09] VITALS: Ht 185.4 cm; Wt 85.3 kg
[~2017-12-09 21:45] MED LIST changes: +ADVIN10050 INH; +ASPCH81X PO; -ATROPINE SULFATE 0.1 MG/ML 5ML SYR ONE; -CEPH500C PO; +CYAN10005 PO; +DILT120C68 PO; -DOBUTamine HCL 12.5 MG/ML 20 ML VIAL ONE; +FOLI1TAB8 PO; -HYDR-5688 PO; +LACT10SO53 PO; +LEVA45AE INH; +LISI-730 PO; +LNX125 PO; +LSX40 PO; -METOPROLOL TARTRATE 1 MG/ML VIAL ONE; +NTRGSL/4 UT; -PERFLUTREN LIPID MICROSPHERE (DEFINITY) IV ONE; +PRD10 PO; +RANI150T85 PO; -SULF800T23 PO; +TAMS0.4C38 PO; +TERB1CRE32 TOP; +TPRSR50 PO
--- NOTE | 2017-12-09 22:23 | DIAGNOSTIC IMAGING REPORT ---
CHEST ONE VIEW PORTABLE CLINICAL HISTORY: confused mental status change COMPARISON STUDY: 11/25/2017 FINDINGS: Minimal interstitial infiltrate left base. Lungs otherwise are clear. Diaphragms are smooth. IMPRESSION: Minimal interstitial infiltrate left base. The above report was generated using voice recognition software. It may contain grammatical, syntax or spelling errors. Electronically signed by: James Villareal M.D. 12/09/2017 10:22 PM Dictated Date/Time: 12/09/2017 10:22 PM
[2017-12-09] MEDS ORDERED: LISI-729 PO (22:40)
[2017-12-09] MEDS ORDERED: LNX125 PO (22:40)
[2017-12-09] MEDS ORDERED: FURO40TA3 PO (22:40)
[2017-12-09] MEDS ORDERED: DILT120C68 PO (22:40)
[2017-12-09] MEDS ORDERED: LACT10SO30 PO (22:40)
[2017-12-09] MEDS ORDERED: ACET-1256 PO (22:40)
[2017-12-09] MEDS ORDERED: METO100T14 PO (22:40)
[2017-12-09] MEDS ORDERED: CEFTRIAXONE SOD INJ 1 GM ADDVIAL IV STA (22:43)
[2017-12-09] MEDS ORDERED: AZITHROMYCIN 250 MG TAB PO STA (22:43)
--- NOTE | 2017-12-09 23:06 | EMERGENCY ROOM VISIT NOTE ---
ED Visit Note First contact with patient: 21:55 The patient was seen and examined with Maggie Leo PA-C. I agree with the history, physical and findings. Please see the note for disposition and details.
[2017-12-09 23:31] LABS: HEMATOCRIT 37.2 % (42-52); HEMOGLOBIN 12.4 g/dL (14.0-18.0); MEAN CELL VOLUME 105.7 fL (80-100); MEAN CORPUSCULAR HEMOGLOBIN 35.2 pg (25-34); MEAN CORPUSCULAR HGB CONC 33.3 g/dl (32-36); RED CELL DISTRIBUTION WIDTH CV 16.4 % (11.5-14.5); RED CELL DISTRIBUTION WIDTH SD 63.8 fL (36.4-46.3); WHITE BLOOD COUNT 13.13 K/uL (4.8-10.8)
[2017-12-09 23:49] LABS: PTT PATIENT 22.4 SECONDS (21.0-31.0)
[2017-12-09 23:56] LABS: ALBUMIN 1.8 gm/dl (3.4-5.0); CALCIUM 9.1 mg/dl (8.5-10.1); CREATININE 1.19 mg/dl (0.60-1.40); POTASSIUM 4.3 mmol/L (3.5-5.1)
[2017-12-10] VITALS (7 sets, daily range): BP systolic 92–149; BP diastolic 59–87; PULSE 68–109; TEMP 36.3–37.1; O2SAT 95–99; BMI 25.0; BMI 26.5
[2017-12-10 00:01] LABS: MEAN PLATELET VOLUME 11.5 fL (7.4-10.4); PLATELET COUNT 76 K/uL (130-400)
[2017-12-10 00:04] LABS: CKMB 4.2 ng/ml (0.5-3.6); TOTAL PROTEIN 5.9 gm/dl (6.4-8.2)
[2017-12-10 00:10] LABS: EOS % 0.2 %; EOS ABS # 0.02 K/uL (0-0.5); IG# 0.13 K/uL (0.00-0.02); LYMPH ABS # 0.92 K/uL (1.2-3.4); MONO % 4.3 %; MONO ABS # 0.56 K/uL (0.11-0.59); NEUT % 87.5 %
[2017-12-10] MEDS ORDERED: SODIUM CHLORIDE 0.9% 1000ML 1,000 ML IV STA (00:39)
[2017-12-10] MEDS ORDERED: ALUMINUM/MAGNESIUM/SIMETH (MAALOX MAX) 30 ML UDC PO PRN (01:15)
[2017-12-10] MEDS ORDERED: LEValbuterol HFA 15GM INHALER INH PRN (01:15)
[2017-12-10] MEDS ORDERED: METHYLPREDNISOLONE IV 40 MG in SYRINGE 0 ML IV SCH ×2 (01:15→14:00)
[2017-12-10] MEDS ORDERED: NITROGLYCERIN 0.4 MG SL PER TAB CHARGE UT SCH (01:15)
[2017-12-10] MEDS ORDERED: ACETAMINOPHEN 325 MG TAB PO PRN (01:15)
[2017-12-10] MEDS ORDERED: VANCOMYCIN IV 1,000 MG in SODIUM CHLORIDE 0.9% 250ML 250 ML IV SCH (01:15)
[2017-12-10] MEDS ORDERED: VANCOMYCIN CONSULT ACTIVE PRN (01:15)
[2017-12-10] MEDS ORDERED: POLYETHYLENE (MIRALAX) 17 GM PACK PO PRN (01:15)
[2017-12-10] MEDS ORDERED: LEVALBUTEROL 0.63MG/3 ML NEB INH PRN (01:15)
[2017-12-10] MEDS ORDERED: ONDANSETRON INJ 2 MG/ML 2 ML VIAL IV PRN (01:15)
[2017-12-10] MEDS ORDERED: NITROGLYCERIN 0.4 MG SL PER TAB CHARGE SL PRN (01:15)
[2017-12-10] MEDS ORDERED: OPTIRAY 320 IV PRN (01:30)
[2017-12-10] MEDS ORDERED: GLUCOSE 10 TABS/TUBE PO PRN (02:15)
[2017-12-10] MEDS ORDERED: GLUCOSE 40% GEL 15 GM TUBE PO PRN (02:15)
[2017-12-10] MEDS ORDERED: CARBOHYDRATES FOR HYPOGLYCEMIA PO PRN (02:15)
[2017-12-10] MEDS ORDERED: DEXTROSE 50% 50 ML SYR IV PRN (02:15)
[2017-12-10] MEDS ORDERED: GLUCAGON FOR INJ 1 MG VIAL IM PRN (02:15)
[2017-12-10] MEDS ORDERED: HEPARIN IV LOW DOSE NO BOLUS STA (02:51)
[2017-12-10] MEDS ORDERED: LEVOFLOXACIN / D5W 750 MG in PREMIXED IN D5W 150 ML IV SCH (03:00)
[2017-12-10] MEDS ORDERED: VANCOMYCIN IV 2,000 MG in SODIUM CHLORIDE 0.9% 500ML 500 ML IV SCH (03:00)
[2017-12-10] MEDS: HEPARIN 25,000 UNIT/500ML D5W 500 ML IV SCH (04:28)
--- NOTE | 2017-12-10 06:21 | EMERGENCY ROOM VISIT NOTE ---
History First contact with patient: 21:55 Chief Complaint: ALTERED MENTAL STATUS Stated Complaint: ALTERED MENTAL STATUS Nursing Triage Summary: patient reports bilateral leg swelling and pain History of Present Illness The patient is a 77 year old male who presents to the Emergency Room with complaints of generalized pain increasing leg pain and swelling for the past month. Patient is yelling and screaming saying the [facility] doctor and nurses nothing for him. Patient states he feels fatigued and horrible. Patient denies recent antibiotics. Patient denies chest pain, localized pain, abdominal pain, nausea, vomiting, localized weakness. Patient does complain of cough and subjective fever and chills. Patient is tolerating p.o. fluids and food. Patient denies bowel or bladder problems. Patient was sent in from the [facility] for possible altered mental status per nursing at the [facility]. They are afraid that he might be skipping some ahead his meds. Patient is alert and oriented 4 for me. He is not altered. Review of Systems An 10 system review of systems was completed with positives and pertinent negatives listed in the HPI. Past Medical/Surgical History Medical Problems: (1) CHF (congestive heart failure) (2) COPD (chronic obstructive pulmonary disease) (3) DVT (deep venous thrombosis) (4) GERD (gastroesophageal reflux disease) (5) H/O: CVA (cerebrovascular accident) (6) HTN (hypertension) (7) Incarcerated umbilical hernia (8) Pneumonia (9) Thrombocytopenia Family History Patient reports no known family medical history. Social History Smoking Status: Current Some Day Smoker Drug Use: none Marital Status: single Housing Status: other Occupation Status: other Current/Historical Medications Scheduled Acetaminophen (Tylenol), 500 MG PO TID Aspirin (Aspirin Chewable), 81 MG PO DAILY Cyanocobalamin (Vitamin B-12), 1,000 MCG PO DAILY Digoxin (Digoxin), 0.125 MG PO DAILY AT 1900 Diltiazem Hcl Ext Rel (Tiazac), 120 MG PO QAM Fluticasone Prop/Salmeterol (Advair Diskus 100-50 Mcg/Dose), 1 PUFF INH BID Folic Acid (Folvite), 1 MG PO DAILY Furosemide (Lasix), 40 MG PO QAM Lactulose (Encephalopathy) (Lactulose), 30 GM PO BID Lisinopril (Zestril), 5 MG PO QAM Metoprolol Tartrate (Lopressor) (Lopressor), 100 MG PO BID Nitroglycerin (Nitrostat), 0.4 MG UT PRN Ranitidine (Zantac), 150 MG PO BID Tamsulosin Hcl (Flomax), 0.4 MG PO DAILY Terbinafine Hcl (Topical) (Lamisil At), 1 APPLN TOP BID Scheduled PRN Levalbuterol Tartrate (Levalbuterol Tartrate Hfa), 2 PUFF INH TID PRN for Shortness of Breath Physical Exam Vital Signs Date Time Temp Pulse Resp B/P (MAP) Pulse Ox O2 Delivery O2 Flow Rate FiO2 12/10/17 01:00 96 18 140/103 100 Room Air 12/09/17 22:36 105 12/09/17 21:48 36.9 88 18 106/71 95 Room Air Physical Exam VITALS: Vitals are noted on the nurse's note and reviewed by myself. Vital signs stable. GENERAL: White male yelling and screaming at staff, in no acute distress, nondiaphoretic, well-developed well-nourished. SKIN: +2 pitting edema to the tib-fib bilaterally. Left leg slightly more erythematous than right leg. Right lower leg with healing wound ulcer without obvious signs of infection. The rest of the skin was without rashes, erythema, edema, or bruising. There is no tenting of the skin. Capillary reflex less than 2 seconds. HEAD: Normocephalic atraumatic. EARS: External auditory canals clear, tympanic membranes pearly cardona without erythema or effusion bilaterally. EYES: Pupils equal round and reactive to light and accommodation. Conjunctivae without injection, sclerae without icterus. Extraocular movements intact. NOSE: Patent, turbinates without inflammation or discharge. No sinus tenderness. MOUTH: Mucous membranes mildly dry. Pharynx without erythema or exudate. Uvula midline. Airway patent. Tongue does not deviate. NECK: Supple without nuchal rigidity. No lymphadenopathy. No thyromegaly. Cervical spine is nontender. No JVD. HEART: Irregularly irregular LUNGS: Mild diffuse end expiratory wheezes without rales or rhonchi. No retractions or accessory muscle use. ABDOMEN: Positive bowel sounds x 4. Normal tympanic percussion. Soft, nontender, without masses or organomegaly. Méndez sign negative. No guarding or rebound tenderness. No CVA tenderness MUSCULOSKELETAL: No muscle atrophy noted. 5 out of 5 strength throughout. NEURO: Patient was alert and oriented to person place and time. Normal sensation to light and sharp touch. No focal neurological deficits. No pronator drift. Medical Decision & Procedures Laboratory Results 12/09/17 23:11 Red Blood Count 3.52, Mean Corpuscular Volume 105.7, Mean Corpuscular Hemoglobin 35.2, Mean Corpuscular Hemoglobin Concent 33.3, Mean Platelet Volume 11.5, Neutrophils (%) (Auto) 87.5, Lymphocytes (%) (Auto) 7.0, Monocytes (%) ( Auto) 4.3, Eosinophils (%) (Auto) 0.2, Basophils (%) (Auto) 0.0, Neutrophils # ( Auto) 11.50, Lymphocytes # (Auto) 0.92, Monocytes # (Auto) 0.56, Eosinophils # ( Auto) 0.02, Basophils # (Auto) 0.00 12/09/17 23:11 Test 12/09/17 22:40 12/09/17 23:11 12/09/17 23:49 Urine Color YELLOW Urine Appearance CLEAR (CLEAR) Urine pH 6.5 (4.5-7.5) Urine Specific [place] 1.014 (1.000-1.030) Urine Protein NEG (NEG) Urine Glucose (UA) 2+ (NEG) Urine Ketones NEG (NEG) Urine Occult Blood TRACE (NEG) Urine Nitrite NEG (NEG) Urine Bilirubin NEG (NEG) Urine Urobilinogen NEG (NEG) Urine Leukocyte Esterase NEG (NEG) Urine WBC (Auto) 0 /hpf (0-5) Urine RBC (Auto) 0-4 /hpf (0-4) Urine Hyaline Casts (Auto) 5-10 /lpf (0-5) Urine Epithelial Cells (Auto) 0-5 /lpf (0-5) Urine Bacteria (Auto) NEG (NEG) White Blood Count 13.13 K/uL (4.8-10.8) Red Blood Count 3.52 M/uL (4.7-6.1) Hemoglobin 12.4 g/dL (14.0-18.0) Hematocrit 37.2 % (42-52) Mean Corpuscular Volume 105.7 fL (80-100) Mean Corpuscular Hemoglobin 35.2 pg (25-34) Mean Corpuscular Hemoglobin Concent 33.3 g/dl (32-36) Platelet Count 76 K/uL (130-400) Mean Platelet Volume 11.5 fL (7.4-10.4) Neutrophils (%) (Auto) 87.5 % Lymphocytes (%) (Auto) 7.0 % Monocytes (%) (Auto) 4.3 % Eosinophils (%) (Auto) 0.2 % Basophils (%) (Auto) 0.0 % Neutrophils # (Auto) 11.50 K/uL (1.4-6.5) Lymphocytes # (Auto) 0.92 K/uL (1.2-3.4) Monocytes # (Auto) 0.56 K/uL (0.11-0.59) Eosinophils # (Auto) 0.02 K/uL (0-0.5) Basophils # (Auto) 0.00 K/uL (0-0.2) RDW Standard Deviation 63.8 fL (36.4-46.3) RDW Coefficient of Variation 16.4 % (11.5-14.5) Immature Granulocyte % (Auto) 1.0 % Immature Granulocyte # (Auto) 0.13 K/uL (0.00-0.02) Hypersegmented Polys 1+ Prothrombin Time 11.0 SECONDS (9.0-12.0) Prothromb Time International Ratio 1.0 (0.9-1.1) Activated Partial Thromboplast Time 22.4 SECONDS (21.0-31.0) Partial Thromboplastin Ratio 0.9 Anion Gap 6.0 mmol/L (3-11) Est Creatinine Clear Calc Drug Dose 60.6 ml/min Estimated GFR () 68.8 Estimated GFR (Non- 59.4 BUN/Creatinine Ratio 26.5 (10-20) Calcium Level 9.1 mg/dl (8.5-10.1) Magnesium Level 2.0 mg/dl (1.8-2.4) Total Bilirubin 0.9 mg/dl (0.2-1) Aspartate Amino Transf (AST/SGOT) 27 U/L (15-37) Alanine Aminotransferase (ALT/SGPT) 31 U/L (12-78) Alkaline Phosphatase 183 U/L (45-117) Ammonia 28.4 umol/L (11-32) Total Creatine Kinase 37 U/L (39-308) Creatine Kinase MB 4.2 ng/ml (0.5-3.6) Creatine Kinase MB Ratio 11.4 (0-3.0) Troponin I 0.064 ng/ml (0-0.045) Total Protein 5.9 gm/dl (6.4-8.2) Albumin 1.8 gm/dl (3.4-5.0) Globulin 4.1 gm/dl (2.5-4.0) Albumin/Globulin Ratio 0.4 (0.9-2) Beta-Hydroxybutyric Acid 1.53 mg/dL (0.2-2.81) Thyroid Stimulating Hormone (TSH) 1.960 uIu/ml (0.300-4.500) Digoxin Level 0.9 ng/ml (0.8-2.0) Medications Administered Medications (Trade) Dose Ordered Sig/Fransisca Route Start Time Stop Time Status Last Admin Dose Admin Ceftriaxone Sodium (Rocephin Inj) 1 gm NOW STAT IV 12/09/17 22:43 12/09/17 22:46 DC 12/09/17 23:30 1 GM Azithromycin (Zithromax Tab) 500 mg NOW STAT PO 12/09/17 22:43 12/09/17 22:46 DC 12/09/17 23:31 500 MG Sodium Chloride 1,000 ml @ 999 mls/hr Q1H1M STAT IV 12/10/17 00:39 12/10/17 01:39 DC 12/10/17 00:55 999 MLS/HR Methylprednisolone Sodium Succinate 40 mg/Syringe 0.64 ml @ 1.5 mls/min BID IV 12/10/17 01:15 12/10/17 03:30 DC 12/10/17 02:46 1.5 MLS/MIN ED Course Prior records/ancillary studies reviewed and summarized above. Nursing notes reviewed. Additional history obtained from correction officers and nursing at the [facility]. The patient's history was concerning for subjective fever and chills with generalized pain and cough who was been noncompliant with his medications per nursing at the [facility]. Differential diagnosis: Etiologies such as metabolic, infection, hypo/hyperglycemia, electrolyte abnormalities, cardiac sources, intracerebral event, toxicologic, neurologic, as well as others were entertained. Physical examination: As above. ER treatment provided: IV Lock Rocephin, Zithromax. Patient denied recent antibiotics. On reassessment the patient felt better. Diagnostics interpretation by me: ECG: Irregularly irregular with ventricular rate of 94. No acute ST-T wave changes. Impression atrial fibrillation interpreted by myself. EKG compared to prior EKG. Repeat EKG still shows rate controlled A. fib. I think new arrhythmia is unlikely. EKG shows atrial fibrillation rate controlled, which is known per patient's history without abnormalities such as QT prolongation or WPW. There are no findings to suggest Brugada syndrome. Cardiac monitoring in the emergency department reveals no tachycardic or bradycardic dysrhythmia. Hypertrophic cardiomyopathy was considered but there are no clear historical elements pointing toward this. EKG is not suggestive. The QRS voltage is not extremely large and there are no suggestive Q waves. The labs revealed elevated troponin. Slightly higher than baseline per chart review mild leukocytosis. Hyperglycemia without DKA Imaging studies: CT HEAD: No acute hemorrhage, hydrocephalus, or mass effect. Chronic microvascular ischemic changes with cerebral volume loss. Air-fluid level in the right maxillary sinus, correlate with sinusitis. Radiologist: Meghan Sargent MD CHEST ONE VIEW PORTABLE CLINICAL HISTORY: confused mental status change COMPARISON STUDY: 11/25/2017 FINDINGS: Minimal interstitial infiltrate left base. Lungs otherwise are clear. Diaphragms are smooth. IMPRESSION: Minimal interstitial infiltrate left base. The above report was generated using voice recognition software. It may contain grammatical, syntax or spelling errors. Electronically signed by: James Villareal M.D. VENOUS BILATERAL LOWER EXTREMITIES: Occlusive or nearly occlusive thrombus within a more superficial venous structure near the right popliteal vein, likely within a right gastrocnemius vein. The rest of the venous structures in the right lower extremity are patent. Nearly occlusive thrombus in the left femoral vein, left popliteal vein, left posterior tibial vein, and left peroneal veins. Thrombus also noted in the left gastrocnemius vein. Patent left common femoral vein. Soft tissue edema in the left lower extremity. Radiologist: Timbo Arambula M.D. CTA CHEST: Pulmonary emboli in the subsegmental pulmonary arteries to the right lower lobe. Evaluation of the distal pulmonary arterial branches limited by motion artifact. Atherosclerotic changes of the vasculature. No aortic aneurysm or definite dissection. No acute pulmonary parenchymal abnormality identified. Dependent end bibasilar atelectasis versus scarring. Nodular contour of the liver is suggestive of cirrhosis. Cholelithiasis partially visualized. Varices in the left upper quadrant. Nonspecific prominent mediastinal lymph nodes. Reflux of contrast into the hepatic veins suggests elevated right heart pressures. Radiologist: Timbo Arambula M.D. Study ready at 02:18 and initial results transmitted at 02:32 Results also transmitted to [address] [place] [address] ([id number]) @ [phone] (Fax) Critical Value Communications Clear Time Type Notes 12/10/17 02:39 Call Doctor Regarding Pulmonary Embolism, called Dr. Clarke on Consultation: A consultation was placed with the hospitalist, Dr. Clarke. The case was discussed and diagnostics were reviewed. The patient was evaluated in the ER for further treatment. Exam and history are concerning for extensive DVTs with PE and pneumonia with generalized pain. Patient currently has a mildly elevated troponin. He denies any chest pain. Repeat EKG was unchanged. The admitting doctor has requested to write for the heparin. This was deferred to him pending the CTA. Hypercoagulable workup was ordered. Patient is agreeable to treatment plan of admission. He was started on antibiotics. He was hydrated as above. By the evaluation outlined above emergent etiologies such as intracerebral event, toxologic, neurologic, metabolic, as well as others were deemed relatively unlikely. The pt informed about the findings as listed above. All questions were answered and pleased with the treatment. Case reviewed with my attending The chart was completed utilizing [employer] Speech voice recognition software. Grammatical errors, random word insertions, pronoun errors, and incomplete sentences are an occassional consequence of this system due to software limitations, ambient noise, and hardware issues. Any formal questions or concerns about the content, text, or information contained within the body of this dictation should be directly addressed to the physician child life assistant for clarification. Medical Decision As above Medication Reconcilliation Current Medication List: was personally reviewed by me Blood Pressure Screening Patient's blood pressure: Normal blood pressure Impression Primary Impression: Pneumonia Additional Impressions: Elevated troponin DVT (deep venous thrombosis) Pulmonary embolism Departure Information Dispostion Being Evaluated By Hospitalist Condition FAIR Referrals Cortez BOND (PCP) Patient Instructions My [facility] Problem Qualifiers Primary Impression: Pneumonia Pneumonia type: due to unspecified organism Laterality: left Lung location : lower lobe of lung Qualified Codes: J18.1 - Lobar pneumonia, unspecified organism
[2017-12-10] MEDS ORDERED: PHARMACY GLYCEMIC MGMT CONSULT PRN (06:29)
--- NOTE | 2017-12-10 06:30 | DIAGNOSTIC IMAGING REPORT ---
CT HEAD WITHOUT CONTRAST (CT) CLINICAL HISTORY: Acute change in mental status COMPARISON STUDY: 11/20/2017 TECHNIQUE: Axial CT of the brain is performed from the vertex to the skull base. IV contrast was not administered for this examination. A dose lowering technique was utilized adhering to the principles of ALARA. CT DOSE: 1228.53 mGy.cm FINDINGS: No intra or extra-axial mass lesions are visualized. There is no CT evidence of acute cortical infarction. There is no evidence of midline shift. There is no acute hemorrhage. No calvarial fractures are visualized. There are patchy white matter hypodensities likely on a small vessel basis. There is no evidence of pathologic ventricular dilatation. There is a maxillary sinus air-fluid level. Clinical correlation in regards to sinusitis is recommended. IMPRESSION: 1. Maxillary sinus air-fluid level 2. Otherwise no acute intracranial findings Electronically signed by: Sesar Wang M.D. 12/10/2017 6:28 AM Dictated Date/Time: 12/10/2017 6:27 AM
--- NOTE | 2017-12-10 06:35 | DIAGNOSTIC IMAGING REPORT ---
BILATERAL LOWER EXTREMITY VENOUS DOPPLER HISTORY: Acute pain and swelling of the bilateral lower extremities leg swelling COMPARISON STUDY: CTA chest of same day FINDINGS: RIGHT: Occlusive or nearly occlusive thrombus of the right gastrocnemius vein. Otherwise, there normal compressibility, flow, and augmentation within the right lower extremity deep venous system. LEFT: Nearly occlusive thrombus of the left femoral, popliteal, posterior tibial, peroneal and gastrocnemius veins. Common femoral vein is patent. Subcutaneous edema of the left lower extremity. IMPRESSION: 1. Occlusive or nearly occlusive deep venous thrombosis of the right gastrocnemius vein. 2. Extensive deep venous thrombosis of the left lower extremity extends from the femoral vein into the lower leg. Electronically signed by: Aiv Chin M.D. 12/10/2017 6:33 AM Dictated Date/Time: 12/10/2017 6:29 AM
--- NOTE | 2017-12-10 06:47 | DIAGNOSTIC IMAGING REPORT ---
(CHEST FOR PE) ANGIO WITH CT DOSE: 647.33 mGy.cm HISTORY: Chest pain dyspnea TECHNIQUE: Multiaxial CT images of the chest were performed following the intravenous administration of contrast to evaluate the pulmonary arteries. Maximal intensity projection images were also obtained. A dose lowering technique was utilized adhering to the principles of ALARA. COMPARISON STUDY: None. FINDINGS: Several filling defects primarily involving the right lower lobe pulmonary arterial vasculature. At least one small defect involving the distal left lower lobe pulmonary vasculature. Moderate generalized interstitial prominence throughout both hemithoraces. No well-defined focal infiltrate. IMPRESSION: 1. Study is positive for right and to a lesser extent left basilar pulmonary emboli. 2. No evidence for a central or saddle embolus. 3. Mild emphysematous and peribronchial prominence throughout both lungs. The above report was generated using voice recognition software. It may contain grammatical, syntax or spelling errors. Electronically signed by: James Villareal M.D. 12/10/2017 6:46 AM Dictated Date/Time: 12/10/2017 6:43 AM
[2017-12-10 06:49] LABS: HEMATOCRIT 29.5 % (42-52); HEMOGLOBIN 9.9 g/dL (14.0-18.0); MEAN CELL VOLUME 104.6 fL (80-100); MEAN CORPUSCULAR HEMOGLOBIN 35.1 pg (25-34); MEAN CORPUSCULAR HGB CONC 33.6 g/dl (32-36); RED CELL DISTRIBUTION WIDTH CV 16.3 % (11.5-14.5); RED CELL DISTRIBUTION WIDTH SD 61.8 fL (36.4-46.3); WHITE BLOOD COUNT 11.73 K/uL (4.8-10.8)
[2017-12-10 06:54] LABS: MEAN PLATELET VOLUME 10.6 fL (7.4-10.4); PLATELET COUNT 67 K/uL (130-400)
[2017-12-10] MEDS: LEVALBUTEROL 0.63MG/3 ML NEB INH SCH ×2 (07:12→14:22)
[2017-12-10 07:16] LABS: BASO % 0.1 %; BASO ABS # 0.01 K/uL (0-0.2); EOS % 0.1 %; EOS ABS # 0.01 K/uL (0-0.5); IG# 0.08 K/uL (0.00-0.02); LYMPH % 5.5 %; LYMPH ABS # 0.65 K/uL (1.2-3.4); MONO % 2.1 %; MONO ABS # 0.25 K/uL (0.11-0.59); NEUT % 91.5 %; NEUT ABS # 10.73 K/uL (1.4-6.5)
[2017-12-10 07:25] LABS: CALCIUM 8.4 mg/dl (8.5-10.1); CREATININE 0.9 mg/dl (0.60-1.40); POTASSIUM 4.1 mmol/L (3.5-5.1)
--- NOTE | 2017-12-10 07:33 | HISTORY & PHYSICAL EXAMINATION ---
DATE OF ADMISSION: 12/10/2017 CHIEF COMPLAINT: Generalized weakness, generalized pain, and lower extremity pain. HISTORY OF PRESENT ILLNESS: This is a 77-year-old male with past medical history significant for congestive heart failure, systolic and diastolic, COPD, GERD, atrial fibrillation, history of CVA, history of hypertension, history of thrombocytopenia, incarcerated umbilical hernia,alcoholic liver cirrhosis, was brought in because of generalized weakness and generalized pain, more in lower extremity. Patient says since the last couple of weeks, has been mostly on the wheelchair, is not able to ambulate much due to lower extremity pain, not even able to to stand, has some abdominal discomfort, mild nausea. Denies any chest pain, denies shortness of breath, no cough. Denies fever or chills. His appetite is okay. No headache, no blurred visions, no runny nose, no sore throat, no difficulty swallowing, no earache. Currently resting comfortably and hemodynamically stable. In unofficial report of the lower extremity Dopplers, he has DVT. ALLERGIES: DOXAZOSIN, PRAZOSIN. PAST MEDICAL HISTORY: As mentioned above. PAST SURGICAL HISTORY: Not on file. FAMILY HISTORY: No known family medical history. SOCIAL HISTORY: Smokes 1 pack a day. Denies alcohol, no drug use. Currently in custodial. MEDICATIONS: Patient is on Lasix 40 mg p.o. daily, aspirin 81 mg p.o. daily, vitamin B12 of 1000 mg p.o. daily, digoxin 0.125 mg p.o. daily, diltiazem extended release 120 mg p.o. a.m., Advair Diskus 100/50 one puff b.i.d., folic acid 1 mg p.o. daily, lactulose 30 g 15 mL p.o. b.i.d., Xopenex inhaler t.i.d. p.r.n., lisinopril 5 mg p.o. a.m., Lopressor 100 mg p.o. b.i.d., nitroglycerin 0.4 mg as needed, Zantac 150 mg p.o. b.i.d., Flomax 0.4 mg p.o. daily, Lamisil cream topically b.i.d. REVIEW OF SYMPTOMS: As per HPI. Rest of review of symptoms negative. PHYSICAL EXAMINATION: GENERAL: Patient is of moderate build, not in distress. VITAL SIGNS: Temperature 36.9, pulse 96, respiratory rate 18, blood pressure 140/103, oxygen saturation 100% on room air. HEENT: No pallor, no icterus. Pupils equal, round, reactive. NECK: No JVD, no neck masses, no carotid bruits. CARDIOVASCULAR SYSTEM: S1 and S2 heard, regular rate and rhythm. No murmur, no gallop. RESPIRATORY SYSTEM: Normal AP diameter. No accessory muscle use. Bilateral wheezing present. Mild bibasilar crackles. GASTROINTESTINAL: Abdomen is soft, bowel sounds present, nontender, no distention. CENTRAL NERVOUS SYSTEM: Cranial nerves II through XII grossly intact. Nonfocal. EXTREMITIES: Lower extremity edema present. Left lower extremity is erythematous and somewhat warm. LABORATORY DATA: WBC 13.13, hemoglobin 12.4, hematocrit 37.2, platelets 76. Sodium 137, potassium 4.3, chloride 102, bicarb 29, BUN 32, creatinine 1.1, serum glucose 378, calcium 9.1, magnesium 2, total bilirubin 0.9, AST 27, ALT 31, alkaline phosphatase 183, ammonia 28.3, total creatinine kinase 37. Troponin I 0.06. TSH 1.9. B-natriuretic peptide is 1.53. PT 11, INR 1, APTT 22.4. Urinalysis unremarkable except for trace occult blood. Digoxin level 0.9. IMAGING: Chest x-ray: Minimal interstitial infiltrate, left base, otherwise lungs are clear. EKG: Atrial fibrillation, rate of 99, nonspecific ST changes seen. ASSESSMENT AND PLAN: This is a 77-year-old male who presents with not feeling well and lower extremity pain. 1. Lower extremity pain. On Doppler, unofficial report, DVT. Patient's last admission Doppler showed nonocclusive deep venous thrombosis and vascular surgery thought it to be chronic and was no IVC filter recommended.CT a chest was done and stat radiology notified that patient has subsegmental right lower lobe PE. Starting on low dose iv heparin. Will monitor for bleeding as patient has thrombocytopenia.Consulted vascular surgery for possible IVC filter. Consulted heme/onco regarding intermediate card tender anticoagulation. Hypercoagulable workup drawn in ER.Close monitor in tele. 2. Pneumonia on x-ray. We will also follow the CAT scan. Also, his generalized weakness and not feeling well could be from the pneumonia. He was recently in the hospital. We will treat for hospital acquired pneumonia with IV vancomycin and IV Levaquin and monitor. 3. COPD ex Patient has wheezing, mostly from above. Will place him on IV Solu-Medrol 40 b.i.d., nebulizers around the clock and p.r.n., antibiotics as above. 4. Acute on chronic systolic and diastolic congestive heart failure, ejection fraction of around 40%-45% on the echo done in October and grade 3 diastolic dysfunction and moderate to severe mitral regurgitation. Apparently, patient is on Lasix 40 mg daily . We will place him on IV Lasix 40 daily. Continue digoxin, Lopressor, and lisinopril and consult cardiology for further optimization of medical management. 5. Thrombocytopenia, mostly from the liver cirrhosis. Platelets are 76. We will monitor while on iv heparin. 5. Liver cirrhosis, alcoholic. Last admission CAT scan showed 1.6 cm hypodense right hepatic lobe lesion, and he needs non emergent MRI of the liver for a followup. Continue lactulose and diuretics. Ammonia is normal. 6. History of atrial fibrillation, rate controlled with the Lopressor, digoxin, Cardizem, not on anticoagulation because of fall risk, noncompliance, liver cirrhosis, and thrombocytopenia. 7. hyperglycemia. Sugars in 300's. Last admission hba1c 6.[address] on Lantus and iss. Check hba1c level. pharmacy consult. close monitor. 8. Hypertension. Continue lisinopril and Cardizem. We will monitor his blood pressure. 9. History of cerebrovascular accident, on aspirin. 10. Gastroesophageal reflux disease, on Zantac. 11. Deep venous thrombosis prophylaxis,Iv heparin. DISPOSITION: Close monitor in tele floor. PT/OT prior to discharge. Level 1 full code. MTDD
[2017-12-10] MEDS ORDERED: INSULIN HUMAN REGULAR PER UNIT 5 UNITS in SYRINGE 4.95 ML IV SCH (08:45)
[2017-12-10] MEDS ORDERED: FUROSEMIDE INJ 40 MG in SYRINGE 0 ML IV SCH (09:00)
[2017-12-10] MEDS ORDERED: INSULIN GLARGINE SOLOSTAR 100 UNITS/ML 3 ML PEN SC SCH (09:00)
--- NOTE | 2017-12-10 09:04 | Pharmacy Progress Note ---
Glycemic Control Intl Consult Date of Service Dec 10, 2017. Scope Glycemic Pharmacist consulted by Dr Clarke on 12/10/17 for glycemic control and to write orders per [facility] inpatient glycemic control protocol Objective Weight (Kilograms): 85.900 Accuchecks BSG (last 24hrs): Test 12/09/17 23:11 12/10/17 06:31 12/10/17 07:58 Random Glucose 378 mg/dl (70-99) 293 mg/dl (70-99) Bedside Glucose 324 mg/dl (70-99) Laboratory Data (last 24hrs) Test 12/09/17 23:11 12/10/17 06:31 Anion Gap 6.0 mmol/L 6.0 mmol/L BUN/Creatinine Ratio 26.5 29.2 Blood Urea Nitrogen 32 mg/dl 26 mg/dl Creatinine 1.19 mg/dl 0.90 mg/dl Potassium Level 4.3 mmol/L 4.1 mmol/L Sodium Level 137 mmol/L 136 mmol/L White Blood Count 13.13 K/uL 11.73 K/uL Red Blood Count 3.52 M/uL 2.82 M/uL Hemoglobin 12.4 g/dL 9.9 g/dL Hematocrit 37.2 % 29.5 % Mean Corpuscular Volume 105.7 fL 104.6 fL Mean Corpuscular Hemoglobin 35.2 pg 35.1 pg Mean Corpuscular Hemoglobin Concent 33.3 g/dl 33.6 g/dl Platelet Count 76 K/uL 67 K/uL Mean Platelet Volume 11.5 fL 10.6 fL Neutrophils (%) (Auto) 87.5 % 91.5 % Lymphocytes (%) (Auto) 7.0 % 5.5 % Monocytes (%) (Auto) 4.3 % 2.1 % Eosinophils (%) (Auto) 0.2 % 0.1 % Basophils (%) (Auto) 0.0 % 0.1 % Neutrophils # (Auto) 11.50 K/uL 10.73 K/uL Lymphocytes # (Auto) 0.92 K/uL 0.65 K/uL Monocytes # (Auto) 0.56 K/uL 0.25 K/uL Eosinophils # (Auto) 0.02 K/uL 0.01 K/uL Basophils # (Auto) 0.00 K/uL 0.01 K/uL Recent Pertinent Medications Outpatient Anti-diabetic Regimen: * n/a * A1c = 6.1 % 10/20/17 The patient is currently ordered: * Basal insulin: Lantus 5 units every 12 hours * Correctional Insulin: Novolog Correction per scale ACHS Goal Range: Low 110 mg/dL - High 140 mg/dL Correction Factor: 30 mg/dL/unit * Prandial insulin: None * Oral Agents: None at this time Risk Factors for Insulin Resistance: * Steroids: Solu-medrol 40 mg BID * Infection: Levaquin + Vanc for pneumonia * Diet: NPO Assessment & Plan ASSESSMENT: * 77 y/o male admitted for DVT/pneumonia. No history of diabetes but does have pre-diabetes as per recent A1c. A more recent one is currently pending. BSG on admission was 378 mg/dL, secondary to recent prednisone taper. He received a liter of NS but no insulin since admission. BSGs are still elevated and is ordered BID steroids so will plan to initiate basal/bolus insulin based upon insulin calculator estimates. Will also give a 0.05 unit/kg bolus of IV insulin to augment the SQ and provide quicker resolution of hyperglycemia. PLAN FOR INPATIENT GLYCEMIC CONTROL: * 5 units IV Regular insulin x 1 now * Basal insulin with LANTUS SQ BID as per following scale: * 7 units for BSG less than 110 * 15 units for BSG 110-180 * 21 units for BSG above 180 * Correctional Insulin with NOVOLOG per scale ACHS or Q6hrs while NPO * Goal Range: Low 110 mg/dL - High 140 mg/dL * Correction Factor: 25 mg/dL/unit * Nutritional / Prandial insulin per carb ratio of 1 unit per 9 grams CHO consumed * Please note that the plan above was derived based on current level of insulin resistance and hospital stress. These recommendations are appropriate for inpatient admission only. Plan of care upon discharge will need to be reassessed to avoid potential outpatient hypo/hyperglycemia. Thank you.
[2017-12-10] MEDS: INSULIN ASPART 100 UNITS/ML 3 ML PEN SC SCH ×4 (09:11→21:31)
[2017-12-10] MEDS: INSULIN GLARGINE SOLOSTAR 100 UNITS/ML 3 ML PEN SC SCH ×2 (09:12→21:31)
[2017-12-10] MEDS: METOPROLOL TARTRATE 100 MG TAB PO SCH ×2 (09:13→22:26)
[2017-12-10] MEDS: TERBINAFINE CR 30 GM TUBE EXT SCH ×2 (09:13→22:27)
[2017-12-10] MEDS: FLUTICASONE/SALMETEROL 100/50 (ADVAIR) 14 PUFF/1 INHALER INH SCH ×2 (09:13→21:25)
[2017-12-10] MEDS: DILTIAZEM HCL 120 MG EXT REL CAP PO SCH (09:14)
[2017-12-10] MEDS: TAMSULOSIN HCL 0.4 MG CAP PO SCH (09:14)
[2017-12-10] MEDS: LISINOPRIL 5 MG TAB PO SCH (09:14)
[2017-12-10] MEDS: RANITIDINE HCL 150 MG TAB PO SCH ×2 (09:14→21:25)
[2017-12-10] MEDS: ASPIRIN 81 MG CHEW PO SCH (09:14)
[2017-12-10] MEDS: CYANOCOBALAMIN 500 MCG TAB (VIT B-12) PO SCH (09:15)
--- NOTE | 2017-12-10 09:59 | Pharmacy Progress Note ---
Pharmacy Abx Initial Consult Date of Service Dec 10, 2017. Pharmacy Dosing Scope Date of Consult: 12/10/17 Consultation requested by: Dr. Clarke Pharmacy is consulted to initiate vancomycin IV dosing therapy, order appropriate labs and adjust drug dose/frequency. Subjective The patient is a 77 year old male admitted on Dec 10, 2017 at 01:22. Objective Height (Feet): 6 Height (Inches): 1.00 Weight (Kilograms): 85.900 Vital Signs (Past 12Hrs) Vital Signs Past 12 Hours Date Time Temp Pulse Resp B/P (MAP) Pulse Ox O2 Delivery O2 Flow Rate FiO2 12/10/17 04:00 Room Air 12/10/17 01:56 100 18 143/91 100 Room Air 12/10/17 01:54 36.3 101 19 149/87 99 Room Air 12/10/17 01:00 96 18 140/103 100 Room Air 12/09/17 22:36 105 Lab Results (24Hrs) Laboratory Tests (24 Hours) Test 12/09/17 23:11 12/10/17 06:31 Total Creatine Kinase 37 U/L (39-308) L White Blood Count 11.73 K/uL (4.8-10.8) H Red Blood Count 2.82 M/uL (4.7-6.1) L Hemoglobin 9.9 g/dL (14.0-18.0) L Hematocrit 29.5 % (42-52) L Mean Corpuscular Volume 104.6 fL (80-100) H Mean Corpuscular Hemoglobin 35.1 pg (25-34) H Mean Corpuscular Hemoglobin Concent 33.6 g/dl (32-36) Platelet Count 67 K/uL (130-400) L Mean Platelet Volume 10.6 fL (7.4-10.4) H Neutrophils (%) (Auto) 91.5 % Lymphocytes (%) (Auto) 5.5 % Monocytes (%) (Auto) 2.1 % Eosinophils (%) (Auto) 0.1 % Basophils (%) (Auto) 0.1 % Neutrophils # (Auto) 10.73 K/uL (1.4-6.5) H Lymphocytes # (Auto) 0.65 K/uL (1.2-3.4) L Monocytes # (Auto) 0.25 K/uL (0.11-0.59) Eosinophils # (Auto) 0.01 K/uL (0-0.5) Basophils # (Auto) 0.01 K/uL (0-0.2) Micro Results Date/Time Source Procedure Growth Status 12/09/17 23:11 Blood Blood Culture Pending Received 12/09/17 22:53 Blood Blood Culture Pending Received Assessment & Plan Assessment * 77 year old male with chief complaint of generalized weakness and lower extremity pain * X-ray: Minimal interstitial infiltrate left base, pneumonia Plan Vancomycin IV * Loading dose: 2000 mg (22 mg/kg) at 12/10/17 at 0300 * Estimated PK parameters: Vd 0.7 L/kg, ke 0.07 hr-1, t1/2 10 hrs * Maintenance dose: 1250 mg IV (14 mg/kg) every 12 hours * Goal trough: 15 to 20 mcg/mL * Trough/Random level ordered for 12/12/17 at 0330 Patient is also receiving Levaquin 750mg IV Q24 Pharmacy will continue to follow and will adjust dose/frequency as necessary. Thank you.
--- NOTE | 2017-12-10 10:15 | Surgery Consultation ---
Consultation Date of Service Dec 10, 2017. Chief Complaint DVT/PE, fall risk, thrombocytopenia History of Present Illness The patient is a 77 year old male with multiple medical problems, including HTN , a fib, CVA, COPD, CAD, liver cirrhosis, chronic thrombocytopenia, admitted with PE/DVT, seen in consultation for possible IVC filter insertion. Pt previously seen last month for a small chronic DVT in RLE noted on an US, no AC was indicated. AC for a fib had been discontinued d/t fall risk in combination with worsening thrombocytopenia. Pt has been in a wheelchair d/t inability to ambulate. Pt admits pain and edema of BLE, worse in LLE. Has edema at baseline , but states significantly worse. Denies DUDLEY, fever, chills, chest pain, SOB, abd pain, N/V, rest pain, claudication, other complaints. Venous US demonstrates extensive DVT of LLE. CTA chest demonstrates PE as well. Vitals Vital Signs Past 12 Hours Date Time Temp Pulse Resp B/P (MAP) Pulse Ox O2 Delivery O2 Flow Rate FiO2 12/10/17 04:00 Room Air 12/10/17 01:56 100 18 143/91 100 Room Air 12/10/17 01:54 36.3 101 19 149/87 99 Room Air 12/10/17 01:00 96 18 140/103 100 Room Air 12/09/17 22:36 105 Allergies Coded Allergies: Doxazosin (Verified Allergy, Unknown, [facility], 12/09/17) PER PROVIDED RECORDS Prazosin (Verified Allergy, Unknown, [facility], 12/09/17) Home Medications Scheduled Acetaminophen (Tylenol), 500 MG PO TID Aspirin (Aspirin Chewable), 81 MG PO DAILY Cyanocobalamin (Vitamin B-12), 1,000 MCG PO DAILY Digoxin (Digoxin), 0.125 MG PO DAILY AT 1900 Diltiazem Hcl Ext Rel (Tiazac), 120 MG PO QAM Fluticasone Prop/Salmeterol (Advair Diskus 100-50 Mcg/Dose), 1 PUFF INH BID Folic Acid (Folvite), 1 MG PO DAILY Furosemide (Lasix), 40 MG PO QAM Lactulose (Encephalopathy) (Lactulose), 30 GM PO BID Lisinopril (Zestril), 5 MG PO QAM Metoprolol Tartrate (Lopressor) (Lopressor), 100 MG PO BID Nitroglycerin (Nitrostat), 0.4 MG UT PRN Ranitidine (Zantac), 150 MG PO BID Tamsulosin Hcl (Flomax), 0.4 MG PO DAILY Terbinafine Hcl (Topical) (Lamisil At), 1 APPLN TOP BID Scheduled PRN Levalbuterol Tartrate (Levalbuterol Tartrate Hfa), 2 PUFF INH TID PRN for Shortness of Breath Problem List Medical Problems: (1) CHF (congestive heart failure) (2) COPD (chronic obstructive pulmonary disease) (3) DVT (deep venous thrombosis) (4) GERD (gastroesophageal reflux disease) (5) H/O: CVA (cerebrovascular accident) (6) HTN (hypertension) (7) Incarcerated umbilical hernia (8) Pneumonia (9) Thrombocytopenia Surgical / Medical History Hx Cardiac Surgery: No Hx Abdominal Surgery: Yes (appendectomy) Hx Cancer Surgery: No Hx Thoracic Surgery: No Hx Orthopedic: Yes (right knee) Hx Urinary Tract Surgery: No Past Medical/Surgical History: COPD, Heart Disease, High Cholesterol, Hypertension, Liver Disease Family History Patient reports no known family medical history. Social History Smoking Status: Current Some Day Smoker Hx Tobacco Use In Past Year?: Yes Hx Alcohol Use - Type & Amnt: No Hx Substance Use -Type & Amnt: Yes (MARIJUANA) Review of Systems Constitutional: No chills, No fever, No malaise Eyes: No visual changes ENMT: No sore throat Respiratory: No cough, No BRANCH, No hemoptysis, No short of breath Cardiovascular: + edema, No chest pain, No syncope, No intermittent claudication Gastrointestinal: No abdominal pain, No nausea, No vomiting Neurologic: No dizziness, No headache, No numbness, No tingling Physical Exam Constitutional: General Apperance: well-nourished, well-developed Level of Distress: NAD, chronically ill Psychiatric: Mental Status: active & alert, normal mood, normal affect Orientation: oriented except where noted, to time, to place, to person Memory: recent memory normal, remote memory normal Head: normocephalic, atraumatic Eyes: EOM: EOMI ENMT: normal ENT inspection, hearing grossly normal Neck: supple, trachea midline Lungs: Respiratory effort: no dyspnea Auscultation: no rales/crackles, no rhonchi, deminished air movement, decreased breath sounds Cardiovascular: Apical Impulse: not displaced Heart Auscultation: no rubs, no gallops, pertinent finding (irregular) Peripheral Pulses: Pulses: full and equal, in all extremities except if noted Bruits: none appreciated Carotid Pulse: normal on the left, normal on the right Brachial Pulses: normal on the left, normal on the right Radial Pulse: normal on the left, normal on the right Femoral Pulse: normal on the left, normal on the right Posterior Tibialis Pulse: decreased on the left, decreased on the right Dorsalis Pedis Pulse: decreased on the left, decreased on the right Abdomen: Bowel Sounds: normal Inspection & Palpation: soft, non-distended, no tenderness, guarding & rebound Musculoskeletal: normal strength (5/5 throughout), normal tone Extremities: Upper Right: no cyanosis, no edema, no varicosities Upper Left: no cyanosis, no edema, no varicosities Lower Right: no cyanosis, no varicosities, no palpable cord, edema Lower Left: no cyanosis, no varicosities, no palpable cord, edema Neurologic: Cranial Nerves: grossly intact Sensation: grossly intact Assessment and Plan ASSESSMENT and PLAN: PE Extensive DVT Thrombocytopenia Liver cirrhosis Fall risk Pt discussed with Dr Fields, who also saw the pt. Recommends IVC filter insertion, planning on SUNDAY. Pt agreeable.
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
[2017-12-10 10:57] LABS: PTT PATIENT 37.7 SECONDS (21.0-31.0)
[2017-12-10] MEDS: LACTULOSE SYRUP 30 GM/45 ML UDP PO SCH ×2 (11:36→21:25)
[2017-12-10] MEDS ORDERED: HEPARIN IV BOLUS 4,500 UNIT in SYRINGE 0 ML IV ONE (12:30)
--- NOTE | 2017-12-10 15:53 | Cardiology Consultation ---
Cardiology Consultation Date of Consultation: Dec 10, 2017 History of Present Illness Patient is a 77 year old male prisoner from [facility] seen in cardiology consultation per the request Dr. Clarke due to chronic atrial fibrillation and congestive heart failure. The patient describes that he has been wheelchair- bound for the last few weeks. At the time of his prior admission earlier this month, he been found to have a nonocclusive lower extremity DVT. He is not a candidate for anticoagulation due to thrombocytopenia related to cirrhosis and bleeding risk from multiple falls. He presented back to the hospital with complaints of diffuse pain specifically in his lower extremities. Lower extremity venous duplex revealed occlusive or nearly occlusive DVT in the right gastrocnemius vein. An extensive deep venous thrombosis of the left lower extremity extending from the femoral vein to the lower leg. CT angiogram revealed right and left basilar pulmonary emboli. Patient has already been seen by vascular surgery today and inferior vena cava filter is tentatively planned for Sunday. During my assessment, the patient was supine and comfortable. He states his pain is controlled. He denies any chest discomfort shortness of breath or palpitations per History Past Medical History: 1. Chronic atrial fibrillation Hepatic cirrhosis with history of elevated ammonia levels and chronic thrombocytopenia 2. History of cerebrovascular disease with suspected stroke in October 2017 3. Mildly reduced left ventricular systolic dysfunction based on echocardiogram October, with mild global hypokinesis LVEF in the range of 45- 50% at that time with moderate to severe mitral regurgitation and severe biatrial enlargement 4. Hypertension 5. Dyslipidemia 6. COPD Social History: Cigarette smoker. Family History: No known family history Review Of Systems 10 point review systems reviewed and is negative with the exception of that above Allergies Coded Allergies: Doxazosin (Verified Allergy, Unknown, RASH, 12/09/17) PER PROVIDED RECORDS Prazosin (Verified Allergy, Unknown, [place] [facility]IST, 12/09/17) Medications Reported Home Medications Medications Dose Route/Sig Max Daily Dose Days Date Category Dose Instructions Tylenol (Acetaminophen) 500 Mg Tab 500 Mg PO TID 12/09/17 Reported Lopressor (Metoprolol Tartrate) 100 Mg Tab 100 Mg PO BID 12/09/17 Reported Zestril (Lisinopril) 5 Mg Tab 5 Mg PO QAM 12/09/17 Reported Lactulose (Lactulose (Encephalopathy)) 10 Gm/15 Ml Ju 30 Gm PO BID 12/09/17 Reported GOAL 3 BM'S PER DAY. Lasix (Furosemide) 40 Mg Tab 40 Mg PO QAM 12/09/17 Reported Tiazac (Diltiazem HCl) 120 Mg Capcr 120 Mg PO QAM 12/09/17 Reported Digoxin 0.125 Mg Tab 0.125 Mg PO DAILY AT 1900 12/09/17 Reported Lamisil At (Terbinafine Hcl (Topical)) 1 % Cre 1 Appln TOP BID 11/20/17 Reported Levalbuterol Tartrate Hfa (Levalbuterol Tartrate) 45 Mcg/Act Aer 2 Puff INH TID PRN 10/20/17 Reported Vitamin B-12 (Cyanocobalamin) 1,000 Mcg Tab 1,000 Mcg PO DAILY 10/20/17 Reported Flomax (Tamsulosin Hcl) 0.4 Mg Cap 0.4 Mg PO DAILY 10/20/17 Reported Zantac (Ranitidine HCl) 150 Mg Tab 150 Mg PO BID 10/20/17 Reported Nitrostat (Nitroglycerin) 0.4 Mg Tab 0.4 Mg UT PRN 10/20/17 Reported Folvite (Folic Acid) 1 Mg Tab 1 Mg PO DAILY 10/20/17 Reported Aspirin Chewable (Aspirin) 81 Mg Chew 81 Mg PO DAILY 10/20/17 Reported Advair Diskus 100-50 Mcg/Dose (Fluticasone Prop/Salmeterol) 14 Puff/1 Inhaler Aerp 1 Puff INH BID 10/20/17 Reported Physical Exam Vital Signs (Last 8hrs): Last 8 Hrs Date Time Temp Pulse Resp B/P (MAP) Pulse Ox O2 Delivery O2 Flow Rate FiO2 12/10/17 15:08 36.6 68 19 95/60 (72) 96 Room Air 12/10/17 11:55 36.7 84 18 107/70 (82) 95 Room Air 12/10/17 08:00 Room Air 12/10/17 07:45 36.6 106 19 135/85 (102) 97 General Appearance: Alert and Oriented x3. NAD. Head: Normocephalic Atraumatic. Eyes: PERRLA, EOMI, conjunctiva and sclera clear Neck: Supple. No carotid bruits noted. No JVD. No HJD. Respiratory: Breath sounds clear to auscultation bilaterally. No w/r/r. Cardiovascular: Reg rate and rhythm. S1 and S2 noted. No murmurs, rubs, gallops. PMI non displace. Abdomen: Normal bowel sounds, soft nontender. no abdominal bruits. Extremities: No edema, no clubbing or cyanosis. distal pulses 2/4 bilaterally. Neuro: No focal deficits. Psychiatric: Normal affect. Data Last 24 Hours Test 12/09/17 22:40 12/09/17 23:11 12/09/17 23:22 12/09/17 23:49 Urine Color YELLOW Urine Appearance CLEAR Urine pH 6.5 Urine Specific [place] 1.014 Urine Protein NEG Urine Glucose (UA) 2+ Urine Ketones NEG Urine Occult Blood TRACE Urine Nitrite NEG Urine Bilirubin NEG Urine Urobilinogen NEG Urine Leukocyte Esterase NEG Urine WBC (Auto) 0 /hpf Urine RBC (Auto) 0-4 /hpf Urine Hyaline Casts (Auto) 5-10 /lpf Urine Epithelial Cells (Auto) 0-5 /lpf Urine Bacteria (Auto) NEG White Blood Count 13.13 K/uL Red Blood Count 3.52 M/uL Hemoglobin 12.4 g/dL Hematocrit 37.2 % Mean Corpuscular Volume 105.7 fL Mean Corpuscular Hemoglobin 35.2 pg Mean Corpuscular Hemoglobin Concent 33.3 g/dl Platelet Count 76 K/uL Mean Platelet Volume 11.5 fL Neutrophils (%) (Auto) 87.5 % Lymphocytes (%) (Auto) 7.0 % Monocytes (%) (Auto) 4.3 % Eosinophils (%) (Auto) 0.2 % Basophils (%) (Auto) 0.0 % Neutrophils # (Auto) 11.50 K/uL Lymphocytes # (Auto) 0.92 K/uL Monocytes # (Auto) 0.56 K/uL Eosinophils # (Auto) 0.02 K/uL Basophils # (Auto) 0.00 K/uL RDW Standard Deviation 63.8 fL RDW Coefficient of Variation 16.4 % Immature Granulocyte % (Auto) 1.0 % Immature Granulocyte # (Auto) 0.13 K/uL Hypersegmented Polys 1+ Prothrombin Time 11.0 SECONDS Prothromb Time International Ratio 1.0 Activated Partial Thromboplast Time 22.4 SECONDS Partial Thromboplastin Ratio 0.9 Sodium Level 137 mmol/L Potassium Level 4.3 mmol/L Chloride Level 102 mmol/L Carbon Dioxide Level 29 mmol/L Anion Gap 6.0 mmol/L Blood Urea Nitrogen 32 mg/dl Creatinine 1.19 mg/dl Est Creatinine Clear Calc Drug Dose 60.6 ml/min Estimated GFR () 68.8 Estimated GFR (Non- 59.4 BUN/Creatinine Ratio 26.5 Random Glucose 378 mg/dl Calcium Level 9.1 mg/dl Magnesium Level 2.0 mg/dl Total Bilirubin 0.9 mg/dl Aspartate Amino Transf (AST/SGOT) 27 U/L Alanine Aminotransferase (ALT/SGPT) 31 U/L Alkaline Phosphatase 183 U/L Ammonia 28.4 umol/L Total Creatine Kinase 37 U/L Creatine Kinase MB 4.2 ng/ml Creatine Kinase MB Ratio 11.4 Troponin I 0.064 ng/ml Total Protein 5.9 gm/dl Albumin 1.8 gm/dl Globulin 4.1 gm/dl Albumin/Globulin Ratio 0.4 Beta-Hydroxybutyric Acid 1.53 mg/dL Thyroid Stimulating Hormone (TSH) 1.960 uIu/ml Bedside Lactic Acid Venous 2.52 mmol/L Digoxin Level 0.9 ng/ml Test 12/10/17 01:40 12/10/17 06:31 12/10/17 07:58 12/10/17 10:26 White Blood Count 11.73 K/uL Red Blood Count 2.82 M/uL Hemoglobin 9.9 g/dL Hematocrit 29.5 % Mean Corpuscular Volume 104.6 fL Mean Corpuscular Hemoglobin 35.1 pg Mean Corpuscular Hemoglobin Concent 33.6 g/dl Platelet Count 67 K/uL Mean Platelet Volume 10.6 fL Neutrophils (%) (Auto) 91.5 % Lymphocytes (%) (Auto) 5.5 % Monocytes (%) (Auto) 2.1 % Eosinophils (%) (Auto) 0.1 % Basophils (%) (Auto) 0.1 % Neutrophils # (Auto) 10.73 K/uL Lymphocytes # (Auto) 0.65 K/uL Monocytes # (Auto) 0.25 K/uL Eosinophils # (Auto) 0.01 K/uL Basophils # (Auto) 0.01 K/uL RDW Standard Deviation 61.8 fL RDW Coefficient of Variation 16.3 % Immature Granulocyte % (Auto) 0.7 % Immature Granulocyte # (Auto) 0.08 K/uL Sodium Level 136 mmol/L Potassium Level 4.1 mmol/L Chloride Level 104 mmol/L Carbon Dioxide Level 26 mmol/L Anion Gap 6.0 mmol/L Blood Urea Nitrogen 26 mg/dl Creatinine 0.90 mg/dl Est Creatinine Clear Calc Drug Dose 80.1 ml/min Estimated GFR () 96.5 Estimated GFR (Non- 83.3 BUN/Creatinine Ratio 29.2 Random Glucose 293 mg/dl Calcium Level 8.4 mg/dl Bedside Glucose 324 mg/dl Activated Partial Thromboplast Time 37.7 SECONDS Partial Thromboplastin Ratio 1.5 Test 12/10/17 11:47 Bedside Glucose 256 mg/dl EKG tracings performed this admission on 12/09 and again on 12/10 with atrial fibrillation ranging from 90-99 bpm with mild nonspecific ST changes that are stable. Assessment & Plan Impression: 77-year-old male 1. Bilateral DVT, pulmonary embolism 2. Rate controlled atrial fibrillation in the range of 60-90 bpm present 3. Compensated cardiomyopathy Recommendations: Agree with cautious heparin for now although not a candidate for chronic anticoagulation. Agree with plan to proceed with inferior vena cava filter. Think is reasonable to continue IV furosemide for now but I do not think he is acutely decompensated from a volume status standpoint at present.
[2017-12-10] MEDS ORDERED: VANCOMYCIN IV 1,250 MG in SODIUM CHLORIDE 0.9% 250ML 250 ML IV SCH (16:00)
[2017-12-10] MEDS: DIGOXIN 0.125 MG TAB PO SCH (16:54)
--- NOTE | 2017-12-10 18:08 | Progress Note ---
Progress Note Date of Service Dec 10, 2017. Progress Note Subjective Patient denies chest pain or shortness of breath or abdominal pain. Currently on IV heparin continuously Physical Exam GENERAL: not in distress HEENT: No pallor, no icterus. Pupils equal, round, reactive. NECK: No JVD, no neck masses CARDIOVASCULAR SYSTEM: S1 and S2 heard, regular rate and rhythm. No murmur, no gallop. RESPIRATORY SYSTEM: clear to auscultation bilaterally, no wheezing GASTROINTESTINAL: Abdomen is soft, bowel sounds present, nontender, no distention. NERVOUS SYSTEM: awake and alert, oriented, verbal EXTREMITIES: Lower extremity edema present. Left lower extremity is erythematous and somewhat warm. ASSESSMENT AND PLAN: Thromboembolism - bilateral DVT and pulmonary embolism -Ultrasound 1. Occlusive or nearly occlusive deep venous thrombosis of the right gastrocnemius vein. 2. Extensive deep venous thrombosis of the left lower extremity extends from the femoral vein into the lower leg. -CTA Study is positive for right and to a lesser extent left basilar pulmonary emboli. -on heparin drip -Hematology: "77-year-old male, a known case of underlying cirrhosis of liver with evidence of portal hypertension and esophageal varices, thrombocytopenia, now admitted for bilateral lower extremity DVT and pulmonary embolism, hypercoagulable state work up in progress, no obvious cause identified for thrombotic complications in his case, recommend imaging study of the abdomen to look for occult malignancy, check alpha-fetoprotein level, presently receiving IV heparin therapy, agree about putting IVC filter placement as he's at a high risk for bleeding complications and anticoagulation may be contraindicated during that situation" -Vascular plans to place IVC filter on Sunday12/12/17 -after IVC filter is placed, hematology consult recommends bridging to Coumadin and target INR should be keeping slightly lower than recommended, perhaps between 1.6-2 would be appropriate in the presence of presence of esophageal varices and thrombocytopenia Liver cirrhosis, alcoholic. Last admission CT scan showed 1.6 cm hypodense right hepatic lobe lesion -Continue lactulose and diuretics -MRI of the liver ordered if patient has no contraindications. Of note, patient is from [facility] and metal handcuffs are contraindicated in MRI room Thrombocytopenia Admission of wheezing - concern for COPD vs Pneumonia on admission vs Acute on chronic systolic and diastolic congestive heart failure -no clinical signs of fever or significant respiratory distress -appears to have normal breathing and no active wheezing - stopped IV solumedrol , change nebulizers to prn, stopped Vancomycin and Levaquin -ejection fraction of around 40%-45% on the echo done in October and grade 3 diastolic dysfunction and moderate to severe mitral regurgitation. -would continue on oral Lasix. Continue digoxin, Lopressor, and lisinopril History of cerebrovascular accident, on aspirin. Hypertension. Continue lisinopril and Cardizem. Gastroesophageal reflux disease, on Zantac. History of atrial fibrillation, rate controlled with the Lopressor, digoxin, Cardizem Hyperglycemia stopped solumedrol Lantus and iss. Check hba1c level. pharmacy consult. Deep venous thrombosis prophylaxis, IV heparin.
[2017-12-10] MEDS: MoRPHine SULFATE 2 MG/ML CARP IV PRN (19:44)
[2017-12-10 20:33] LABS: PTT PATIENT 55.3 SECONDS (21.0-31.0)
[2017-12-11] VITALS (9 sets, daily range): BP systolic 105–149; BP diastolic 61–81; PULSE 68–123; TEMP 36.4–37; O2SAT 94–96; Ht 185.4 cm; Wt 85.3 kg
[2017-12-11] MEDS ORDERED: GADOXETATE DISODIUM (NON-WT BASED PROCEDURE) IV PRN (00:45)
[2017-12-11] MEDS: HEPARIN 25,000 UNIT/500ML D5W 500 ML IV SCH ×3 (01:25→20:47)
[2017-12-11] MEDS ORDERED: INSULIN ASPART 100 UNITS/ML 3 ML PEN SC ONE (02:00)
--- NOTE | 2017-12-11 07:26 | DIAGNOSTIC IMAGING REPORT ---
MRI LIVER COMBO CLINICAL HISTORY: Hepatic cirrhosis. 16 mm hepatic mass. Abnormal prior CT scan. TECHNIQUE: Imaging was performed prior to and following IV contrast injection. Imaging was acquired before and after the administration of 10 cc of intravenous Eovist. COMPARISON STUDY: CT scan dated 10/25/2017 FINDINGS: The examination is not optimal due to motion artifact. There are multiple gallstones. No left kidney is visualized. There is a subcentimeter right renal cyst. The spleen is the upper limits of normal in size. Multiple varices are visualized. There is no ductal dilatation. No pancreatic masses are visualized. There is a 17 mm T2 bright mass within the right hepatic lobe. This lesion reveals no definitive enhancement. The lesion does however demonstrate increased signal intensity on diffusion-weighted images. While this may be secondary to T2 shine through, one cannot with certainty exclude a solid mass. A 6 month follow-up examination is recommended. There is evidence for hepatic cirrhosis with capsular scarring. IMPRESSION: 1. Technically limited study secondary to motion artifact 2. Nonvisualization of the left kidney 3. Hepatic cirrhosis and varices 4. Cholelithiasis 5. 17 mm T2 bright mass within the right hepatic lobe. This demonstrates increased signal on diffusion-weighted images. There is no definitive enhancement on the postgadolinium studies which are limited due to motion artifact. A cyst with T2 shine through is favored over a solid lesion. A 6 month follow-up examination is recommended. Electronically signed by: Sesar Wang M.D. 12/11/2017 7:25 AM Dictated Date/Time: 12/11/2017 7:09 AM
[2017-12-11 08:18] LABS: HEMATOCRIT 29.5 % (42-52); MEAN CELL VOLUME 104.2 fL (80-100); MEAN CORPUSCULAR HEMOGLOBIN 35.3 pg (25-34); MEAN CORPUSCULAR HGB CONC 33.9 g/dl (32-36); RED CELL DISTRIBUTION WIDTH SD 61.2 fL (36.4-46.3); WHITE BLOOD COUNT 13.44 K/uL (4.8-10.8)
[2017-12-11 08:27] LABS: PTT PATIENT 43.8 SECONDS (21.0-31.0)
[2017-12-11 08:46] LABS: MEAN PLATELET VOLUME 11.1 fL (7.4-10.4); PLATELET COUNT 82 K/uL (130-400)
[2017-12-11 08:51] LABS: CREATININE 1.03 mg/dl (0.60-1.40); POTASSIUM 3.9 mmol/L (3.5-5.1)
[2017-12-11] MEDS: LISINOPRIL 5 MG TAB PO SCH (08:59)
[2017-12-11] MEDS: LACTULOSE SYRUP 30 GM/45 ML UDP PO SCH ×2 (08:59→20:39)
[2017-12-11] MEDS: CYANOCOBALAMIN 500 MCG TAB (VIT B-12) PO SCH (08:59)
[2017-12-11] MEDS: FLUTICASONE/SALMETEROL 100/50 (ADVAIR) 14 PUFF/1 INHALER INH SCH ×2 (08:59→20:38)
[2017-12-11] MEDS: DILTIAZEM HCL 120 MG EXT REL CAP PO SCH (08:59)
[2017-12-11] MEDS: ASPIRIN 81 MG CHEW PO SCH (09:00)
[2017-12-11] MEDS: TAMSULOSIN HCL 0.4 MG CAP PO SCH (09:00)
[2017-12-11] MEDS ORDERED: HEPARIN IV BOLUS 3,000 UNIT in SYRINGE 0 ML IV ONE (09:00)
[2017-12-11] MEDS: RANITIDINE HCL 150 MG TAB PO SCH ×2 (09:00→20:40)
[2017-12-11] MEDS: FUROSEMIDE 40 MG TAB PO SCH (09:00)
[2017-12-11] MEDS: TERBINAFINE CR 30 GM TUBE EXT SCH ×2 (09:00→20:35)
[2017-12-11 09:02] LABS: HEMOGLOBIN A1C 7.3 % (4.5-5.6)
[2017-12-11] MEDS: INSULIN ASPART 100 UNITS/ML 3 ML PEN SC SCH ×4 (09:04→20:45)
[2017-12-11] MEDS: INSULIN GLARGINE SOLOSTAR 100 UNITS/ML 3 ML PEN SC SCH ×2 (09:04→20:46)
[2017-12-11] MEDS: METOPROLOL TARTRATE 100 MG TAB PO SCH ×2 (09:33→20:40)
[2017-12-11] MEDS: MoRPHine SULFATE 2 MG/ML CARP IV PRN ×2 (09:39→16:24)
--- NOTE | 2017-12-11 11:24 | Pharmacy Progress Note ---
Pharmacy Glycemic Short Note 2 Date of Service Dec 11, 2017. OUTPATIENT ANTIDIABETIC REGIMEN: * n/a * A1c = 7.3% on 12/11/17 <-up from 6.1% on 10/20/17 Test 12/10/17 11:47 12/10/17 16:34 12/10/17 21:10 12/11/17 01:56 Bedside Glucose 256 mg/dl (70-99) 265 mg/dl (70-99) 198 mg/dl (70-99) 207 mg/dl (70-99) Test 12/11/17 07:37 12/11/17 07:50 Bedside Glucose 146 mg/dl (70-99) Random Glucose 120 mg/dl (70-99) ASSESSMENT: 12/11/17 * Mr. Ramírez received 73 units of insulin yesterday * Major changes to insulin resistance/sensitivity: Solu-medrol was d/c'd yesterday, will be NPO after midnight tonight for IVC filter tomorrow * BSGs have improved off steroids. Anticipate insulin needs to decrease. * Will continue same doses for Lantus but adjust scale to only provide the higher dose if BSG > 200 * Will loosen CF/CR to be closer to wt/stress of 3 using insulin calculator estimates 12/10/17 * 77 y/o male admitted for DVT/pneumonia. No history of diabetes but does have pre-diabetes as per recent A1c. A more recent one is currently pending. BSG on admission was 378 mg/dL, secondary to recent prednisone taper. He received a liter of NS but no insulin since admission. BSGs are still elevated and is ordered BID steroids so will plan to initiate basal/bolus insulin based upon insulin calculator estimates. Will also give a 0.05 unit/kg bolus of IV insulin to augment the SQ and provide quicker resolution of hyperglycemia. PLAN FOR INPATIENT GLYCEMIC CONTROL: * Basal insulin - adjust scale slightly * LANTUS SQ BID as per following scale: * 7 units for BSG less than 110 * 15 units for BSG 110-200 * 21 units for BSG above 200 * Bolus insulin - loosen parameters * NovoLog per scale ACHS or Q6hrs while NPO * Goal Range: Low 110 mg/dL - High 140 mg/dL * Correction Factor: 20 mg/dL/unit * Nutritional / Prandial insulin per carb ratio of 1 unit per 8 grams CHO consumed PLAN FOR DISCHARGE: * A1c is indicative of diabetes * Would recommend lifestyle modification in addition to metformin 500 mg BID as 1st line agent for diabetes diagnosis
--- NOTE | 2017-12-11 14:00 | Progress Note ---
Progress Note Date of Service Dec 11, 2017. Progress Note Subjective Patient denies chest pain or shortness of breath or abdominal pain. Currently on IV heparin continuously Physical Exam GENERAL: not in distress HEENT: No pallor, no icterus. Pupils equal, round, reactive. NECK: No JVD, no neck masses CARDIOVASCULAR SYSTEM: S1 and S2 heard, regular rate and rhythm. No murmur, no gallop. RESPIRATORY SYSTEM: clear to auscultation bilaterally, no wheezing GASTROINTESTINAL: Abdomen is soft, bowel sounds present, nontender, no distention. NERVOUS SYSTEM: awake and alert, oriented, verbal EXTREMITIES: Lower extremity edema present. Left lower extremity is more swollen than right leg ASSESSMENT AND PLAN: Thromboembolism - bilateral DVT and pulmonary embolism -Ultrasound 1. Occlusive or nearly occlusive deep venous thrombosis of the right gastrocnemius vein. 2. Extensive deep venous thrombosis of the left lower extremity extends from the femoral vein into the lower leg. -CTA Study is positive for right and to a lesser extent left basilar pulmonary emboli. -on heparin drip -Hematology: "77-year-old male, a known case of underlying cirrhosis of liver with evidence of portal hypertension and esophageal varices, thrombocytopenia, now admitted for bilateral lower extremity DVT and pulmonary embolism, hypercoagulable state work up in progress, no obvious cause identified for thrombotic complications in his case, recommend imaging study of the abdomen to look for occult malignancy, check alpha-fetoprotein level, presently receiving IV heparin therapy, agree about putting IVC filter placement as he's at a high risk for bleeding complications and anticoagulation may be contraindicated during that situation" -Vascular plans to place IVC filter on Sunday12/12/17 -after IVC filter is placed, hematology consult recommends bridging to Coumadin and target INR should be keeping slightly lower than recommended, perhaps between 1.6-2 would be appropriate in the presence of presence of esophageal varices and thrombocytopenia Liver cirrhosis, alcoholic. Last admission CT scan showed 1.6 cm hypodense right hepatic lobe lesion -Continue lactulose and diuretics -MRI of the liver completed and radiology impression is that the 17 mm T2 mass within the right hepatic lobe is likely a cyst over a solid lesion and a 6 month follow-up examination is recommended. -AFP pending results Thrombocytopenia Trend platelets History of cerebrovascular accident on aspirin. no focal neurological deficits History of atrial fibrillation, rate controlled with the Lopressor, digoxin, Cardizem Admission of wheezing - concern for COPD vs Pneumonia on admission vs Acute on chronic systolic and diastolic congestive heart failure -no clinical signs of fever or significant respiratory distress -appears to have normal breathing and no active wheezing - has been off solumedrol, nebulizers, off the admission Vancomycin and Levaquin since 12/10/17 and no further respiratory symptoms -ejection fraction of around 40%-45% on the echo done in October and grade 3 diastolic dysfunction and moderate to severe mitral regurgitation. -would continue on oral Lasix. Continue digoxin, Lopressor, and lisinopril Hyperglycemia secondary to initial solumedrol use for breathing and newly diagnosed Diabetes mellitus likely type 2 -Pharmacy glycemic control continuing management with Insulin -Hba1c 7.3 Hypertension. Continue lisinopril and Cardizem. Gastroesophageal reflux disease, on Zantac. Deep venous thrombosis prophylaxis, IV heparin.
[2017-12-11 16:20] LABS: PTT PATIENT 51.1 SECONDS (21.0-31.0)
[2017-12-11] MEDS: DIGOXIN 0.125 MG TAB PO SCH (16:25)
[2017-12-12] VITALS (13 sets, daily range): BP systolic 86–118; BP diastolic 54–81; PULSE 68–105; TEMP 36.4–37.1; O2SAT 91–98
[2017-12-12] MEDS ORDERED: VANCOMYCIN TROUGH ONE (03:30)
[2017-12-12] MEDS ORDERED: CEFAZOLIN IV 1,000 MG in DEXTROSE 5% 50ML 50 ML IV ONE (06:00)
[2017-12-12] MEDS ORDERED: CEFAZOLIN 2000MG IV PUSH 15 ML IV SCH (06:00)
[2017-12-12] MEDS: INSULIN ASPART 100 UNITS/ML 3 ML PEN SC SCH ×4 (07:00→20:59)
[2017-12-12 07:09] LABS: HEMATOCRIT 32.8 % (42-52); HEMOGLOBIN 10.9 g/dL (14.0-18.0); MEAN CELL VOLUME 104.8 fL (80-100); MEAN CORPUSCULAR HEMOGLOBIN 34.8 pg (25-34); MEAN CORPUSCULAR HGB CONC 33.2 g/dl (32-36); RED CELL DISTRIBUTION WIDTH CV 16.3 % (11.5-14.5)
[2017-12-12 07:36] LABS: MEAN PLATELET VOLUME 10.7 fL (7.4-10.4); PLATELET COUNT 88 K/uL (130-400)
[2017-12-12 07:38] LABS: BASO % 0.1 %; BASO ABS # 0.01 K/uL (0-0.2); EOS % 0.1 %; EOS ABS # 0.02 K/uL (0-0.5); IG# 0.15 K/uL (0.00-0.02); LYMPH % 7.3 %; LYMPH ABS # 1.12 K/uL (1.2-3.4); MONO % 5.9 %; NEUT % 85.6 %
[2017-12-12 07:41] LABS: PTT PATIENT 47.7 SECONDS (21.0-31.0)
[2017-12-12 07:52] LABS: CREATININE 0.99 mg/dl (0.60-1.40); POTASSIUM 3.9 mmol/L (3.5-5.1)
[2017-12-12] MEDS: LISINOPRIL 5 MG TAB PO SCH (07:57)
[2017-12-12] MEDS: RANITIDINE HCL 150 MG TAB PO SCH ×2 (07:57→20:57)
[2017-12-12] MEDS: CYANOCOBALAMIN 500 MCG TAB (VIT B-12) PO SCH (07:58)
[2017-12-12] MEDS: DILTIAZEM HCL 120 MG EXT REL CAP PO SCH (07:58)
[2017-12-12] MEDS: ASPIRIN 81 MG CHEW PO SCH (07:58)
[2017-12-12] MEDS: FUROSEMIDE 40 MG TAB PO SCH (07:58)
[2017-12-12] MEDS: METOPROLOL TARTRATE 100 MG TAB PO SCH ×2 (07:59→20:56)
[2017-12-12] MEDS: FLUTICASONE/SALMETEROL 100/50 (ADVAIR) 14 PUFF/1 INHALER INH SCH ×2 (07:59→20:53)
[2017-12-12] MEDS: LACTULOSE SYRUP 30 GM/45 ML UDP PO SCH ×2 (07:59→20:53)
[2017-12-12] MEDS: TAMSULOSIN HCL 0.4 MG CAP PO SCH (07:59)
[2017-12-12] MEDS: TERBINAFINE CR 30 GM TUBE EXT SCH ×2 (08:00→20:53)
[2017-12-12] MEDS: INSULIN GLARGINE SOLOSTAR 100 UNITS/ML 3 ML PEN SC SCH ×2 (08:01→20:59)
--- NOTE | 2017-12-12 08:45 | Progress Note ---
Progress Note Date of Service Dec 12, 2017. Progress Note Patient for an insertion of IVC filter today. I have discussed the risks options and benefits of the procedure with the patient. The patient understands the risks options and benefits and agrees to the procedure. I have examined the patient, reviewed the History & Physical and in the interval since the performance of the History & Physical I have noted the following changes of clinical significance: No changes noted
[2017-12-12] MEDS ORDERED: FENTANYL CITRATE INJ 50 MCG/1 ML 2 ML VIAL ONE (10:13)
[2017-12-12] MEDS ORDERED: MIDAZOLAM HCL 1 MG/ML 2ML VIAL ONE (10:13)
--- NOTE | 2017-12-12 10:32 | Pre Sedation Assessment ---
Pre Sedation Assessment General Date of Sedation: Dec 12, 2017. Vital Signs Past 12 Hours Date Time Temp Pulse Resp B/P (MAP) Pulse Ox O2 Delivery O2 Flow Rate FiO2 12/12/17 08:00 96 Room Air 12/12/17 07:09 37.1 92 18 118/81 (93) 96 Room Air 12/12/17 03:45 36.8 90 18 116/54 (74) 96 Room Air 12/11/17 22:52 36.8 69 18 105/74 (84) 94 Room Air Pre-Sedation Airway Assessment Smoking Status: Current Some Day Smoker Hx of Sleep Apnea: No Short Thick Neck: No Thyro-mental Distance: > 3 Finger Breadths Oral Cavity: Dentures, Dental Abnormalities Mallampati Classification: Class I ASA Classification: Class III NPO Status Date of Last Intake of Fluids: Dec 11, 2017 Time of Last Intake of Fluids: 2300 Date of Last Intake of Solids: Dec 11, 2017 Time of Last Intake of Solids: 2300 Procedure Planning Contraindications for Sedation: None Current Medications Reviewed: Yes Notes The planned sedation has been discussed with the patient. Informed Consent was obtained. I have identified the patient, determined the appropriateness of sedation and have assessed the patient immediately prior to the procedure. All medicine(s) and interventions are by my order.
[2017-12-12] MEDS ORDERED: FENTANYL CITRATE INJ 50 MCG/1 ML 2 ML VIAL IV ONE (10:55)
[2017-12-12] MEDS ORDERED: MIDAZOLAM HCL 1 MG/ML 2ML VIAL IV ONE (10:55)
[2017-12-12] MEDS ORDERED: LIDOCAINE HCL 1% 20 ML VIAL SQ ONE (10:57)
[2017-12-12] MEDS ORDERED: IODIXANOL (VISIPAQUE) 270 MG/ML 50ML IV ONE (11:03)
--- NOTE | 2017-12-12 11:16 | [facility] Operative Report ---
Operative Report Operative Date Dec 12, 2017. Pre-Operative Diagnosis Deep Vein Thrombosis, Contraindication of Anticoagulation Post-Operative Diagnosis Deep Vein Thrombosis, Contraindication of Anticoagulation Procedure(s) Performed Insertion of Vena Cava Filter, Right Femoral Approach, Fluroscopy for Positioning, Moderate Sedation From [address] Fields [employer] Assistant Surgeon(s) None Estimated Blood Loss 0 Findings upright in infra renal vena cava Specimens None Anesthesia Type IV Sedat Cons RN Only Complication(s) none Disposition Indications This is a 77-year-old male with DVT. He has contraindications to anticoagulation. Filter was recommended. I have discussed the risks options and benefits of the procedure with the patient. The patient understands the risks options and benefits and agrees to the procedure. Description of Procedure The patient was brought to the angio suite and placed in the supine position. The right groin was prepped and draped in the usual fashion. The right common femoral vein was then punctured under ultrasound visualization. A guidewire was then passed centrally into the inferior vena cava under fluoroscopic guidance. The puncture site was then dilated and the filter sheath inserted. It was passed to the infra renal vena cava. A venacavagram was done which showed no cava clot and an acceptable size. The renal veins were identified. The filter was then passed through the sheath and deployed in the infra renal vena cava in an upright position. Satisfied with the positioning of the filter , the sheath was removed. Pressure was applied to the puncture site. Adequate hemostasis was obtained and a sterile dressing was applied. The patient left the angio suite in good condition and tolerated the procedure well. I attest to the content of the Intraoperative Record and any orders documented therein. Any exceptions are noted below.
--- NOTE | 2017-12-12 11:20 | Post Sedation Assessment ---
Post Sedation Assessment General Date of Sedation Dec 12, 2017. Vital Signs: Vital Signs Past 12 Hours Date Time Temp Pulse Resp B/P (MAP) Pulse Ox O2 Delivery O2 Flow Rate FiO2 12/12/17 11:08 82 14 104/59 96 Oxymask 2 12/12/17 11:03 76 16 100/66 99 Oxymask 2 12/12/17 11:00 75 16 92/72 99 Oxymask 2 12/12/17 10:55 79 16 113/76 100 Oxymask 2 12/12/17 10:53 76 18 113/76 100 Oxymask 2 12/12/17 08:00 96 Room Air 12/12/17 07:09 37.1 92 18 118/81 (93) 96 Room Air 12/12/17 03:45 36.8 90 18 116/54 (74) 96 Room Air Post Procedure Recovery Score Activity: (2) Moves 4 extremities * Respiration: (2) Deep breath/cough Circulation: (2) +/-20% PreAnes Value Consciousness: (2) Fully Awake Oxygen Saturation: (2) > 92% On Room Air Post Anesthesia Score: 10 Discharge Sedation Level of Care: Fast Track Phase II Post Sedation Plan On clinical assessment, the patient appears to have tolerated the sedation without complications. Patient is recovering as anticipated. Patient will continue to be monitored by nursing and may be discharged when sedation discharge criteria are met per below protocol. Upon Completions of procedure and additional 15 minutes continue every 5 minute vital signs and the P.A.R. score; then discharge to a Phase I or Fast Track to Phase II per the following guidelines: * Discharge Patient to appropriate Phase II area if PAR is 8 or greater or return to pre- procedure baseline. The post - procedure orders will be as directed. * If PAR score is less than 8 or not return to pre-procedure baseline then patient will follow Phase I monitoring till PAR is reached for Phase II. The Phase I may be done in procedure room or may call to secure a Phase I area. * If naloxone or flumazenil are used for reversal, hold in Phase I for an additional 60 -120 minutes before discharge to Phase II. Please call the Sedation Physician to re-evaluate and complete post-note for discharge to Phase II area. Do NOT discharge from procedure sedation or Phase 1 until post- sedation evaluation note is complete by procedure /sedation MD Sedation Discharge Instructions to be given to the patient at discharge to home.
--- NOTE | 2017-12-12 13:15 | Progress Note ---
Medicine Progress Note Date & Time of Visit: Dec 12, 2017 at 12:49. Subjective Pt was seen and examined Lying in bed with no distress Pt said that he is very hungry Denies any chest pain, palpitation, dizziness and SOB Objective Last 8 Hrs Date Time Temp Pulse Resp B/P (MAP) Pulse Ox O2 Delivery O2 Flow Rate FiO2 12/12/17 12:00 36.9 72 20 101/69 (80) 98 Room Air 12/12/17 11:29 36.4 76 20 107/68 (81) 96 12/12/17 11:08 82 14 104/59 96 Oxymask 2 12/12/17 11:03 76 16 100/66 99 Oxymask 2 12/12/17 11:00 75 16 92/72 99 Oxymask 2 12/12/17 10:55 79 16 113/76 100 Oxymask 2 12/12/17 10:53 76 18 113/76 100 Oxymask 2 12/12/17 08:00 96 Room Air 12/12/17 07:09 37.1 92 18 118/81 (93) 96 Room Air Physical Exam: General- No acute distress Head- atraumatic Eyes- PERRL, EOMI ENT- oropharynx clear Neck- supple, no JVD Lungs- clear to auscultation Heart- regular rhythm; no murmur Abdomen- normal bowel sounds, soft Extremities- no calf tenderness Neuro- alert, oriented x 3; PERRL, EOMI; no facial palsy Skin- warm & dry Laboratory Results: Last 24 Hours Test 12/11/17 15:36 12/11/17 16:15 12/11/17 20:28 12/12/17 06:29 Activated Partial Thromboplast Time 51.1 SECONDS 47.7 SECONDS Partial Thromboplastin Ratio 2.0 1.8 Bedside Glucose 163 mg/dl 181 mg/dl White Blood Count 15.30 K/uL Red Blood Count 3.13 M/uL Hemoglobin 10.9 g/dL Hematocrit 32.8 % Mean Corpuscular Volume 104.8 fL Mean Corpuscular Hemoglobin 34.8 pg Mean Corpuscular Hemoglobin Concent 33.2 g/dl Platelet Count 88 K/uL Mean Platelet Volume 10.7 fL Neutrophils (%) (Auto) 85.6 % Lymphocytes (%) (Auto) 7.3 % Monocytes (%) (Auto) 5.9 % Eosinophils (%) (Auto) 0.1 % Basophils (%) (Auto) 0.1 % Neutrophils # (Auto) 13.10 K/uL Lymphocytes # (Auto) 1.12 K/uL Monocytes # (Auto) 0.90 K/uL Eosinophils # (Auto) 0.02 K/uL Basophils # (Auto) 0.01 K/uL RDW Standard Deviation 63.0 fL RDW Coefficient of Variation 16.3 % Immature Granulocyte % (Auto) 1.0 % Immature Granulocyte # (Auto) 0.15 K/uL Sodium Level 139 mmol/L Potassium Level 3.9 mmol/L Chloride Level 105 mmol/L Carbon Dioxide Level 30 mmol/L Anion Gap 4.0 mmol/L Blood Urea Nitrogen 26 mg/dl Creatinine 0.99 mg/dl Est Creatinine Clear Calc Drug Dose 72.8 ml/min Estimated GFR () 86.0 Estimated GFR (Non- 74.2 BUN/Creatinine Ratio 26.4 Random Glucose 104 mg/dl Calcium Level 9.0 mg/dl Magnesium Level 2.0 mg/dl Test 12/12/17 07:46 12/12/17 11:42 Bedside Glucose 150 mg/dl 135 mg/dl Assessment & Plan B/L DVT and PE Doppler of venous lower extremities showed occlusive or nearly occlusive deep venous thrombosis of the right gastrocnemius vein Extensive deep venous thrombosis of the left lower extremity extends from the femoral vein into the lower leg. CTA chest showed S positive for right and to a lesser extent left basilar pulmonary emboli. Has been on heparin drip High risks for bleeding complications due to hx of thrombocytopenia, esophageal varices S/p IVC filter done today by Dr. Fields On heparin drip Hematology on board Recommended Coumadin and to keep INR between 1.6 to 2 due to risks of bleeding from esophageal varices and thrombocytopenia Will start on Coumadin 2.5 mg today Monitor INR closely Continue Coumadin for retirement Hepatic Nodule MRI of the liver showed 17 mm T2 mass within the right hepatic lobe is likely a cyst over a solid lesion Will need 6 month follow-up study AFP normal Thrombocytopenia Platelet slightly increased to 88 Monitor CBC Hx cerebrovascular accident no focal neurological deficits On aspirin History of atrial fibrillation Rate controlled with the Lopressor, digoxin, Cardizem Cardiology on board Compensated cardiomyopathy No signs of fluid overload Continue Oral Lasix, Lopressor Stable ECHO on 10/29 * Normal LV chamber size with mild concentric LVH. * Mildly reduced LV systolic function with mild global hypokinesis, EF 45-50%. * No segmental left ventricular wall motion abnormalities are noted. * Grade III diastolic dysfunction. * Aortic valve sclerosis mild, without significant aortic valvular stenosis. * There is moderate to severe mitral regurgitation. The mitral regurgitant jet is posteriorly directed, which is consistent with anterior leaflet pathology. * Severe biatrial enlargement. * Intact interatrial septum. DM type 2 Recent Hba1c 7.3 Newly diagnosed Pharmacy on board for glycemic management Monitor BS Hypertension. Continue lisinopril and Cardizem. Gastroesophageal reflux disease on Zantac. Deep venous thrombosis prophylaxis, IV heparin. CODE STATUS FULL CODE DISPOSITION Will discharge once INR at goal Current Inpatient Medications: Current Inpatient Medications Medications (Trade) Dose Ordered Sig/Fransisca Route Start Time Stop Time Status Last Admin Dose Admin Ioversol (Optiray 320) 125 ml UD PRN IV 12/10/17 01:30 12/14/17 01:29 Acetaminophen (Tylenol Tab) 650 mg Q4H PRN PO 12/10/17 01:15 01/09/18 01:14 Al Hydrox/Mg Hydrox/Simethicone (Maalox Max Susp) 15 ml Q4H PRN PO 12/10/17 01:15 01/09/18 01:14 Ondansetron HCl (Zofran Inj) 4 mg Q6H PRN IV 12/10/17 01:15 01/09/18 01:14 Polyethylene (Miralax Powder Packet) 17 gm DAILY PRN PO 12/10/17 01:15 01/09/18 01:14 Aspirin (Aspirin Chew) 81 mg DAILY PO 12/10/17 09:00 01/09/18 08:59 12/12/17 07:58 81 MG Cyanocobalamin (Vitamin B-12 Tab) 1,000 mcg DAILY PO 12/10/17 09:00 01/09/18 08:59 12/12/17 07:58 1,000 MCG Digoxin (Lanoxin Tab) 0.125 mg DAILY@1600 PO 12/10/17 16:00 01/09/18 15:59 12/11/17 16:25 0.125 MG Diltiazem HCl (TIAzac CAP) 120 mg QAM PO 12/10/17 09:00 01/09/18 08:59 12/12/17 07:58 120 MG Salmeterol Xinafoate/ Fluticasone (Advair Diskus 100/50 Inh) 1 puff BID INH 12/10/17 09:00 01/09/18 08:59 12/12/17 07:59 1 PUFF Folic Acid (Folvite Tab) 1 mg DAILY PO 12/10/17 09:00 01/09/18 08:59 12/12/17 07:57 1 MG Levalbuterol (Xopenex Hfa Inhaler) 1 puffs TID PRN INH 12/10/17 01:15 01/09/18 01:14 Lisinopril (Zestril Tab) 5 mg QAM PO 12/10/17 09:00 01/09/18 08:59 12/12/17 07:57 5 MG Metoprolol Tartrate (Lopressor Tab) 100 mg BID PO 12/10/17 09:00 01/09/18 08:59 12/12/17 07:59 100 MG Nitroglycerin (Nitrostat Tab) 0.4 mg PRN UT 12/10/17 01:15 01/09/18 01:14 Ranitidine HCl (zANTac TAB) 150 mg BID PO 12/10/17 09:00 01/09/18 08:59 12/12/17 07:57 150 MG Tamsulosin HCl (Flomax Cap) 0.4 mg DAILY PO 12/10/17 09:00 01/09/18 08:59 12/12/17 07:59 0.4 MG Terbinafine HCl (Lamisil At Cream) 1 appl BID EXT 12/10/17 09:00 01/09/18 08:59 12/12/17 08:00 1 APPL Lactulose (Chronulac Syrup) 30 gm BID PO 12/10/17 09:00 01/09/18 08:59 12/12/17 07:59 30 GM Levalbuterol (Xopenex 0.63 Mg/ 3 Ml Neb) 0.63 mg Q2R PRN INH 12/10/17 01:15 01/09/18 01:14 Insulin Aspart (novoLOG ASPART) SLIDING SCALE G... ACHS SC 12/10/17 07:00 01/09/18 06:59 12/11/17 20:45 6 UNITS Morphine Sulfate (MoRPHine SULFATE INJ) 2 mg Q3HWA PRN IV 12/10/17 01:45 12/24/17 01:44 12/11/17 16:24 2 MG Glucose (Glucose 40% Gel) 15-30 GRAMS 15 GRAMS... UD PRN PO 12/10/17 02:15 01/09/18 02:14 Glucose (Glucose Chew Tab) 4-8 Tablets 4 Tabl... UD PRN PO 12/10/17 02:15 01/09/18 02:14 Dextrose (Dextrose 50% 50ML Syringe) 25-50ML 25ML FOR ... UD PRN IV 12/10/17 02:15 01/09/18 02:14 Glucagon (Glucagon Inj) 1 mg UD PRN IM 12/10/17 02:15 01/09/18 02:14 Carbohydrates (Carbohydrates For Hypoglycemia) 15-30 GRAMS 15 grams if BSG 54-69... UD PRN PO 12/10/17 02:15 01/09/18 02:14 Heparin Sodium/ Dextrose 500 ml @ 25 mls/hr Q20H IV 12/10/17 03:15 01/09/18 03:14 12/11/17 20:47 25 MLS/HR Miscellaneous Information (Consult Glycemic Management Pharmacy) 1 ea DAILY PRN N/A 12/10/17 06:29 01/09/18 06:28 Insulin Glargine (Lantus Solostar Pen) SEE PROTOCOL TEXT BID SC 12/10/17 09:00 01/09/18 08:59 12/12/17 08:01 15 UNITS Furosemide (Lasix Tab) 40 mg QAM PO 12/11/17 09:00 01/10/18 08:59 12/12/17 07:58 40 MG Gadoxetate Disodium (Eovist (Non-Wt Based Procedure)) 10 ml UD PRN IV 12/11/17 00:45 12/15/17 00:44 Cefazolin Sodium 15 ml @ 3.75 mls/ min PREOP IV 12/12/17 06:00 12/12/17 18:00 12/12/17 10:42 3.75 MLS/MIN
[2017-12-12] MEDS: WARFARIN SOD 2.5 MG TAB PO SCH (16:40)
[2017-12-12] MEDS: DIGOXIN 0.125 MG TAB PO SCH (16:41)
--- NOTE | 2017-12-12 17:36 | Hematology/Oncology Prog Note ---
Hematology/Onc Progress Note Date of Service Dec 12, 2017. Subjective Patient was rounded on at bedside. He was just s/p IVC filter placement. He denies chest pain or dyspnea. He states his legs continue with pain generalized. He denies any bloody or black stools, no hematuria. He is a poor historian and easily gets off topic. Review of Systems: Respiratory: No cough, No shortness of breath Cardiovascular: + see HPI Abdomen: No GI bleeding Male : No hematuria Vital Signs Vital Signs Past 12 Hours Date Time Temp Pulse Resp B/P (MAP) Pulse Ox O2 Delivery O2 Flow Rate FiO2 12/12/17 16:41 75 12/12/17 15:14 36.6 78 18 86/62 (70) 93 Room Air 12/12/17 13:15 36.9 68 18 107/69 (82) 98 Room Air 2.0 12/12/17 12:15 36.7 72 20 105/69 (81) 98 Room Air 2.0 12/12/17 12:00 36.9 72 20 101/69 (80) 98 Room Air 12/12/17 11:45 36.4 76 20 107/68 (81) 96 Oxymask 2.0 12/12/17 11:29 36.4 76 20 107/68 (81) 96 12/12/17 11:08 82 14 104/59 96 Oxymask 2 12/12/17 11:03 76 16 100/66 99 Oxymask 2 12/12/17 11:00 75 16 92/72 99 Oxymask 2 12/12/17 10:55 79 16 113/76 100 Oxymask 2 12/12/17 10:53 76 18 113/76 100 Oxymask 2 12/12/17 08:00 96 Room Air 12/12/17 07:09 37.1 92 18 118/81 (93) 96 Room Air Physical Exam Constitutional: Level of Distress: NAD, chronically ill Lungs: Auscuitation: breath sounds normal, no wheezing Cardiovascular: Heart Auscultation: RRR Abdomen: Inspection & Palpation: soft, no tenderness, guarding & rebound Extremities: edema (LLE) Laboratory Last 24 Hours Test 12/11/17 20:28 12/12/17 06:29 12/12/17 07:46 12/12/17 11:42 Bedside Glucose 181 mg/dl 150 mg/dl 135 mg/dl White Blood Count 15.30 K/uL Red Blood Count 3.13 M/uL Hemoglobin 10.9 g/dL Hematocrit 32.8 % Mean Corpuscular Volume 104.8 fL Mean Corpuscular Hemoglobin 34.8 pg Mean Corpuscular Hemoglobin Concent 33.2 g/dl Platelet Count 88 K/uL Mean Platelet Volume 10.7 fL Neutrophils (%) (Auto) 85.6 % Lymphocytes (%) (Auto) 7.3 % Monocytes (%) (Auto) 5.9 % Eosinophils (%) (Auto) 0.1 % Basophils (%) (Auto) 0.1 % Neutrophils # (Auto) 13.10 K/uL Lymphocytes # (Auto) 1.12 K/uL Monocytes # (Auto) 0.90 K/uL Eosinophils # (Auto) 0.02 K/uL Basophils # (Auto) 0.01 K/uL RDW Standard Deviation 63.0 fL RDW Coefficient of Variation 16.3 % Immature Granulocyte % (Auto) 1.0 % Immature Granulocyte # (Auto) 0.15 K/uL Activated Partial Thromboplast Time 47.7 SECONDS Partial Thromboplastin Ratio 1.8 Sodium Level 139 mmol/L Potassium Level 3.9 mmol/L Chloride Level 105 mmol/L Carbon Dioxide Level 30 mmol/L Anion Gap 4.0 mmol/L Blood Urea Nitrogen 26 mg/dl Creatinine 0.99 mg/dl Est Creatinine Clear Calc Drug Dose 72.8 ml/min Estimated GFR () 86.0 Estimated GFR (Non- 74.2 BUN/Creatinine Ratio 26.4 Random Glucose 104 mg/dl Calcium Level 9.0 mg/dl Magnesium Level 2.0 mg/dl Test 12/12/17 16:21 Bedside Glucose 267 mg/dl Assessment & Plan 1. Acute bilateral DVT with bilateral PE 2. Thrombocytopenia in setting of chronic liver disease, no splenomegaly 3. Normocytic anemia- likely of multiple mechanisms including chronic disease and inflammation * Patient is s/p IVC filter placement today * Patient remains on heparin gtt, spoke with Dr. Lynn today and he is going to start warfarin bridge with goal 1.6- 2 * Patient has not had any bleeding complications thus far * Dr. Najera is recommending indefinite anticoagulation as long as no contraindications to anticoagulation develop, i.e. worsening thrombocytopenia or anemia, falls, bleeding complication with varices * Patient will be monitored closely by his HCP at [facility] * No malignancy on follow up liver MRI noted * hypercoag work up still pending, can be follow up by primary service * Continue to monitor CBCD daily while hospitalized Dr. Najera is the attending control room helper
[2017-12-12] MEDS: HEPARIN 25,000 UNIT/500ML D5W 500 ML IV SCH (19:04)
[2017-12-12] MEDS: MoRPHine SULFATE 2 MG/ML CARP IV PRN (19:23)
[2017-12-13] VITALS (7 sets, daily range): BP systolic 89–120; BP diastolic 53–75; PULSE 77–119; TEMP 36.5–37.2; O2SAT 92–96
[2017-12-13 06:52] LABS: MEAN CELL VOLUME 103.8 fL (80-100); MEAN CORPUSCULAR HEMOGLOBIN 34.6 pg (25-34); MEAN CORPUSCULAR HGB CONC 33.3 g/dl (32-36); RED CELL DISTRIBUTION WIDTH SD 60.3 fL (36.4-46.3); WHITE BLOOD COUNT 12.52 K/uL (4.8-10.8)
[2017-12-13 07:01] LABS: PTT PATIENT 43.8 SECONDS (21.0-31.0)
[2017-12-13 07:13] LABS: MEAN PLATELET VOLUME 10.3 fL (7.4-10.4); PLATELET COUNT 82 K/uL (130-400)
[2017-12-13 07:25] LABS: CALCIUM 8.5 mg/dl (8.5-10.1); CREATININE 1.01 mg/dl (0.60-1.40); POTASSIUM 4.4 mmol/L (3.5-5.1)
[2017-12-13] MEDS ORDERED: HEPARIN IV BOLUS 3,000 UNIT in SYRINGE 0 ML IV SCH (07:45)
[2017-12-13] MEDS: ASPIRIN 81 MG CHEW PO SCH (07:57)
[2017-12-13] MEDS: TAMSULOSIN HCL 0.4 MG CAP PO SCH (07:58)
[2017-12-13] MEDS: RANITIDINE HCL 150 MG TAB PO SCH ×2 (07:58→21:58)
[2017-12-13] MEDS: TRAMADOL HCL 50 MG TAB PO PRN (07:58)
[2017-12-13] MEDS: FLUTICASONE/SALMETEROL 100/50 (ADVAIR) 14 PUFF/1 INHALER INH SCH ×2 (07:59→21:55)
[2017-12-13] MEDS: LACTULOSE SYRUP 30 GM/45 ML UDP PO SCH ×2 (07:59→21:56)
[2017-12-13] MEDS: TERBINAFINE CR 30 GM TUBE EXT SCH ×2 (07:59→21:56)
[2017-12-13] MEDS: DILTIAZEM HCL 120 MG EXT REL CAP PO SCH (07:59)
[2017-12-13] MEDS: CYANOCOBALAMIN 500 MCG TAB (VIT B-12) PO SCH (08:00)
[2017-12-13] MEDS: FUROSEMIDE 40 MG TAB PO SCH (08:00)
[2017-12-13] MEDS: METOPROLOL TARTRATE 100 MG TAB PO SCH ×2 (08:01→21:57)
[2017-12-13] MEDS: LISINOPRIL 5 MG TAB PO SCH (08:01)
[2017-12-13] MEDS: INSULIN ASPART 100 UNITS/ML 3 ML PEN SC SCH ×4 (08:05→22:01)
[2017-12-13] MEDS: INSULIN GLARGINE SOLOSTAR 100 UNITS/ML 3 ML PEN SC SCH ×2 (08:06→22:02)
[2017-12-13] MEDS: HEPARIN 25,000 UNIT/500ML D5W 500 ML IV SCH (08:07)
--- NOTE | 2017-12-13 08:47 | Pharmacy Progress Note ---
Pharmacy Glycemic Short Note 2 Date of Service Dec 13, 2017. OUTPATIENT ANTIDIABETIC REGIMEN: * n/a * A1c = 7.3% on 12/11/17 <-up from 6.1% on 10/20/17 Test 12/12/17 11:42 12/12/17 16:21 12/12/17 20:28 12/13/17 06:33 Bedside Glucose 135 mg/dl (70-99) 267 mg/dl (70-99) 219 mg/dl (70-99) Random Glucose 208 mg/dl (70-99) Test 12/13/17 07:33 Bedside Glucose 216 mg/dl (70-99) ASSESSMENT: 12/13/17 * Mr. Ramírez received 51 units of insulin yesterday * His diet has been resumed and he is POD 1 s/p IVC filter placement * Daily basal insulin doses have been: 12/10 - 42 units (on Solu-medrol), 12/11 - 30 units, 12/12 - 36 units (NPO for majority of day) * His fasting looked great yesterday but is increased this AM. He will receive a higher dose of Lantus per the ordered scale. Will wait to make further adjustments until we see if this provides some improvement. * CF/CR are already aggressive at insulin calc estimates using wt/stress 3 PLAN FOR INPATIENT GLYCEMIC CONTROL: * Basal insulin - no change, will receive the higher dose this AM * LANTUS SQ BID as per following scale: * 7 units for BSG less than 110 * 15 units for BSG 110-180 * 21 units for BSG above 180 * Bolus insulin - no change * NovoLog per scale ACHS or Q6hrs while NPO * Goal Range: Low 110 mg/dL - High 140 mg/dL * Correction Factor: 20 mg/dL/unit * Nutritional / Prandial insulin per carb ratio of 1 unit per 6 grams CHO consumed PLAN FOR DISCHARGE: * A1c is indicative of diabetes * Would recommend lifestyle modification in addition to metformin 500 mg BID as 1st line agent for diabetes diagnosis
[2017-12-13 08:55] LABS: BASO % 0.1 %; BASO ABS # 0.01 K/uL (0-0.2); EOS % 0.1 %; EOS ABS # 0.01 K/uL (0-0.5); IG# 0.11 K/uL (0.00-0.02); LYMPH % 7.6 %; LYMPH ABS # 0.95 K/uL (1.2-3.4); MONO % 4.2 %; MONO ABS # 0.53 K/uL (0.11-0.59); NEUT % 87.1 %; NEUT ABS # 10.91 K/uL (1.4-6.5)
[2017-12-13 14:33] LABS: PTT PATIENT 57.5 SECONDS (21.0-31.0)
[2017-12-13 14:36] LABS: ANTICARDIOLIPID AB IGA <11 APL (< = 11)
[2017-12-13] MEDS: WARFARIN SOD 2.5 MG TAB PO SCH (16:45)
[2017-12-13] MEDS: DIGOXIN 0.125 MG TAB PO SCH (16:46)
--- NOTE | 2017-12-13 18:46 | Progress Note ---
Medicine Progress Note Date & Time of Visit: Dec 13, 2017 at 18:37. Subjective Pt was seen and examined Lying in bed with no distress Pt said that he is having tenderness and cramp in his LLE Pt has his left foot cuff in bed and has not been moving it. Denies any chest pain, palpitation, dizziness and SOB Objective Last 8 Hrs Date Time Temp Pulse Resp B/P (MAP) Pulse Ox O2 Delivery O2 Flow Rate FiO2 12/13/17 16:46 84 12/13/17 15:27 36.9 80 18 95/58 (70) 94 Room Air 12/13/17 11:48 36.9 77 18 89/53 (65) 94 Room Air Physical Exam: General- No acute distress Head- atraumatic Eyes- PERRL, EOMI ENT- oropharynx clear Neck- supple, no JVD Lungs- clear to auscultation Heart- regular rhythm; no murmur Abdomen- normal bowel sounds, soft Extremities- +edema, ankle cuff at the rail of bed Neuro- alert, oriented x 3; PERRL, EOMI; no facial palsy Skin- warm & dry Laboratory Results: Last 24 Hours Test 12/12/17 20:28 12/13/17 06:33 12/13/17 07:33 12/13/17 11:18 Bedside Glucose 219 mg/dl 216 mg/dl 194 mg/dl White Blood Count 12.52 K/uL Red Blood Count 2.89 M/uL Hemoglobin 10.0 g/dL Hematocrit 30.0 % Mean Corpuscular Volume 103.8 fL Mean Corpuscular Hemoglobin 34.6 pg Mean Corpuscular Hemoglobin Concent 33.3 g/dl Platelet Count 82 K/uL Mean Platelet Volume 10.3 fL Neutrophils (%) (Auto) 87.1 % Lymphocytes (%) (Auto) 7.6 % Monocytes (%) (Auto) 4.2 % Eosinophils (%) (Auto) 0.1 % Basophils (%) (Auto) 0.1 % Neutrophils # (Auto) 10.91 K/uL Lymphocytes # (Auto) 0.95 K/uL Monocytes # (Auto) 0.53 K/uL Eosinophils # (Auto) 0.01 K/uL Basophils # (Auto) 0.01 K/uL RDW Standard Deviation 60.3 fL RDW Coefficient of Variation 16.0 % Immature Granulocyte % (Auto) 0.9 % Immature Granulocyte # (Auto) 0.11 K/uL Prothrombin Time 11.0 SECONDS Prothromb Time International Ratio 1.0 Activated Partial Thromboplast Time 43.8 SECONDS Partial Thromboplastin Ratio 1.7 Sodium Level 135 mmol/L Potassium Level 4.4 mmol/L Chloride Level 103 mmol/L Carbon Dioxide Level 27 mmol/L Anion Gap 5.0 mmol/L Blood Urea Nitrogen 28 mg/dl Creatinine 1.01 mg/dl Est Creatinine Clear Calc Drug Dose 71.4 ml/min Estimated GFR () 83.9 Estimated GFR (Non- 72.4 BUN/Creatinine Ratio 28.1 Random Glucose 208 mg/dl Calcium Level 8.5 mg/dl Magnesium Level 2.1 mg/dl Test 12/13/17 13:45 12/13/17 16:31 Activated Partial Thromboplast Time 57.5 SECONDS Partial Thromboplastin Ratio 2.2 Bedside Glucose 151 mg/dl Assessment & Plan B/L DVT and PE Doppler of venous lower extremities showed occlusive or nearly occlusive deep venous thrombosis of the right gastrocnemius vein Extensive deep venous thrombosis of the left lower extremity extends from the femoral vein into the lower leg. CTA chest showed S positive for right and to a lesser extent left basilar pulmonary emboli. Has been on heparin drip High risks for bleeding complications due to hx of thrombocytopenia, esophageal varices S/p IVC filter done today by Dr. Fields On heparin drip Hematology on board Recommended Coumadin and to keep INR between 1.6 to 2 due to risks of bleeding from esophageal varices and thrombocytopenia Continue Coumadin 2.5 mg today Monitor INR closely Continue Coumadin for retirement Hepatic Nodule MRI of the liver showed 17 mm T2 mass within the right hepatic lobe is likely a cyst over a solid lesion Will need 6 month follow-up study AFP normal Thrombocytopenia Platelet slightly increased to 82 Monitor CBC Hx cerebrovascular accident no focal neurological deficits On aspirin History of atrial fibrillation Rate controlled with the Lopressor, digoxin, Cardizem Cardiology on board Compensated cardiomyopathy No signs of fluid overload Continue Oral Lasix, Lopressor Stable ECHO on 10/29 * Normal LV chamber size with mild concentric LVH. * Mildly reduced LV systolic function with mild global hypokinesis, EF 45-50%. * No segmental left ventricular wall motion abnormalities are noted. * Grade III diastolic dysfunction. * Aortic valve sclerosis mild, without significant aortic valvular stenosis. * There is moderate to severe mitral regurgitation. The mitral regurgitant jet is posteriorly directed, which is consistent with anterior leaflet pathology. * Severe biatrial enlargement. * Intact interatrial septum. DM type 2 Recent Hba1c 7.3 Newly diagnosed Pharmacy on board for glycemic management Monitor BS Hypertension. Continue lisinopril and Cardizem. Gastroesophageal reflux disease on Zantac. Deep venous thrombosis prophylaxis, IV heparin. CODE STATUS FULL CODE DISPOSITION Will discharge once INR at goal Current Inpatient Medications: Current Inpatient Medications Medications (Trade) Dose Ordered Sig/Fransisca Route Start Time Stop Time Status Last Admin Dose Admin Ioversol (Optiray 320) 125 ml UD PRN IV 12/10/17 01:30 12/14/17 01:29 Acetaminophen (Tylenol Tab) 650 mg Q4H PRN PO 12/10/17 01:15 01/09/18 01:14 Al Hydrox/Mg Hydrox/Simethicone (Maalox Max Susp) 15 ml Q4H PRN PO 12/10/17 01:15 01/09/18 01:14 Ondansetron HCl (Zofran Inj) 4 mg Q6H PRN IV 12/10/17 01:15 01/09/18 01:14 Polyethylene (Miralax Powder Packet) 17 gm DAILY PRN PO 12/10/17 01:15 01/09/18 01:14 Aspirin (Aspirin Chew) 81 mg DAILY PO 12/10/17 09:00 01/09/18 08:59 12/13/17 07:57 81 MG Cyanocobalamin (Vitamin B-12 Tab) 1,000 mcg DAILY PO 12/10/17 09:00 01/09/18 08:59 12/13/17 08:00 1,000 MCG Digoxin (Lanoxin Tab) 0.125 mg DAILY@1600 PO 12/10/17 16:00 01/09/18 15:59 12/13/17 16:46 0.125 MG Diltiazem HCl (TIAzac CAP) 120 mg QAM PO 12/10/17 09:00 01/09/18 08:59 12/13/17 07:59 120 MG Salmeterol Xinafoate/ Fluticasone (Advair Diskus 100/50 Inh) 1 puff BID INH 12/10/17 09:00 01/09/18 08:59 12/13/17 07:59 1 PUFF Folic Acid (Folvite Tab) 1 mg DAILY PO 12/10/17 09:00 01/09/18 08:59 12/13/17 08:00 1 MG Levalbuterol (Xopenex Hfa Inhaler) 1 puffs TID PRN INH 12/10/17 01:15 01/09/18 01:14 Lisinopril (Zestril Tab) 5 mg QAM PO 12/10/17 09:00 01/09/18 08:59 12/13/17 08:01 5 MG Metoprolol Tartrate (Lopressor Tab) 100 mg BID PO 12/10/17 09:00 01/09/18 08:59 12/13/17 08:01 100 MG Nitroglycerin (Nitrostat Tab) 0.4 mg PRN UT 12/10/17 01:15 01/09/18 01:14 Ranitidine HCl (zANTac TAB) 150 mg BID PO 12/10/17 09:00 01/09/18 08:59 12/13/17 07:58 150 MG Tamsulosin HCl (Flomax Cap) 0.4 mg DAILY PO 12/10/17 09:00 01/09/18 08:59 12/13/17 07:58 0.4 MG Terbinafine HCl (Lamisil At Cream) 1 appl BID EXT 12/10/17 09:00 01/09/18 08:59 12/13/17 07:59 1 APPL Lactulose (Chronulac Syrup) 30 gm BID PO 12/10/17 09:00 01/09/18 08:59 12/13/17 07:59 30 GM Levalbuterol (Xopenex 0.63 Mg/ 3 Ml Neb) 0.63 mg Q2R PRN INH 12/10/17 01:15 01/09/18 01:14 Insulin Aspart (novoLOG ASPART) SLIDING SCALE G... ACHS SC 12/10/17 07:00 01/09/18 06:59 12/13/17 17:13 14 UNITS Morphine Sulfate (MoRPHine SULFATE INJ) 2 mg Q3HWA PRN IV 12/10/17 01:45 12/24/17 01:44 12/12/17 19:23 2 MG Glucose (Glucose 40% Gel) 15-30 GRAMS 15 GRAMS... UD PRN PO 12/10/17 02:15 01/09/18 02:14 Glucose (Glucose Chew Tab) 4-8 Tablets 4 Tabl... UD PRN PO 12/10/17 02:15 01/09/18 02:14 Dextrose (Dextrose 50% 50ML Syringe) 25-50ML 25ML FOR ... UD PRN IV 12/10/17 02:15 01/09/18 02:14 Glucagon (Glucagon Inj) 1 mg UD PRN IM 12/10/17 02:15 01/09/18 02:14 Carbohydrates (Carbohydrates For Hypoglycemia) 15-30 GRAMS 15 grams if BSG 54-69... UD PRN PO 12/10/17 02:15 01/09/18 02:14 Heparin Sodium/ Dextrose 500 ml @ 27 mls/hr [id number] IV 12/10/17 03:15 01/09/18 03:14 12/13/17 08:07 27 MLS/HR Miscellaneous Information (Consult Glycemic Management Pharmacy) 1 ea DAILY PRN N/A 12/10/17 06:29 01/09/18 06:28 Insulin Glargine (Lantus Solostar Pen) SEE PROTOCOL TEXT BID SC 12/10/17 09:00 01/09/18 08:59 12/13/17 08:06 21 UNITS Furosemide (Lasix Tab) 40 mg QAM PO 12/11/17 09:00 01/10/18 08:59 12/13/17 08:00 40 MG Gadoxetate Disodium (Eovist (Non-Wt Based Procedure)) 10 ml UD PRN IV 12/11/17 00:45 12/15/17 00:44 Warfarin Sodium (Coumadin Tab) 2.5 mg DAILY@16 PO 12/12/17 16:00 01/11/18 15:59 12/13/17 16:45 2.5 MG Tramadol HCl (Ultram Tab) not relieved by tylenol @ Q6H PRN PO 12/12/17 19:45 01/11/18 19:44 12/13/17 07:58 50 MG
[2017-12-14] VITALS (10 sets, daily range): BP systolic 86–124; BP diastolic 53–84; PULSE 66–91; TEMP 36.5–37; O2SAT 92–96
[2017-12-14] MEDS: MoRPHine SULFATE 2 MG/ML CARP IV PRN ×3 (00:39→16:15)
[2017-12-14 01:17] LABS: HEMATOCRIT 28.8 % (42-52); HEMOGLOBIN 9.8 g/dL (14.0-18.0); MEAN CELL VOLUME 105.1 fL (80-100); MEAN CORPUSCULAR HEMOGLOBIN 35.8 pg (25-34); RED CELL DISTRIBUTION WIDTH CV 16.3 % (11.5-14.5); RED CELL DISTRIBUTION WIDTH SD 61.7 fL (36.4-46.3); WHITE BLOOD COUNT 15.34 K/uL (4.8-10.8)
[2017-12-14 01:35] LABS: CALCIUM 8.8 mg/dl (8.5-10.1); CREATININE 0.93 mg/dl (0.60-1.40); POTASSIUM 4.3 mmol/L (3.5-5.1)
[2017-12-14 01:36] LABS: INR 1.1 (0.9-1.1); MEAN PLATELET VOLUME 10.8 fL (7.4-10.4); PLATELET COUNT 94 K/uL (130-400)
[2017-12-14 01:38] LABS: BASO % 0.1 %; BASO ABS # 0.01 K/uL (0-0.2); EOS % 0.1 %; EOS ABS # 0.01 K/uL (0-0.5); IG# 0.17 K/uL (0.00-0.02); LYMPH % 8.7 %; LYMPH ABS # 1.34 K/uL (1.2-3.4); MONO % 3.8 %; MONO ABS # 0.58 K/uL (0.11-0.59); NEUT % 86.2 %; NEUT ABS # 13.23 K/uL (1.4-6.5); PTT PATIENT 50.5 SECONDS (21.0-31.0)
[2017-12-14] MEDS: LACTULOSE SYRUP 30 GM/45 ML UDP PO SCH ×2 (08:25→21:04)
[2017-12-14] MEDS: FUROSEMIDE 40 MG TAB PO SCH (08:25)
[2017-12-14] MEDS: ASPIRIN 81 MG CHEW PO SCH (08:25)
[2017-12-14] MEDS: TERBINAFINE CR 30 GM TUBE EXT SCH ×2 (08:25→21:00)
[2017-12-14] MEDS: RANITIDINE HCL 150 MG TAB PO SCH ×2 (08:26→21:05)
[2017-12-14] MEDS: FLUTICASONE/SALMETEROL 100/50 (ADVAIR) 14 PUFF/1 INHALER INH SCH ×2 (08:26→21:04)
[2017-12-14] MEDS: TAMSULOSIN HCL 0.4 MG CAP PO SCH (08:26)
[2017-12-14] MEDS: CYANOCOBALAMIN 500 MCG TAB (VIT B-12) PO SCH (08:26)
[2017-12-14] MEDS: DILTIAZEM HCL 120 MG EXT REL CAP PO SCH (08:26)
[2017-12-14] MEDS: METOPROLOL TARTRATE 100 MG TAB PO SCH (08:27)
[2017-12-14] MEDS: LISINOPRIL 5 MG TAB PO SCH (08:30)
[2017-12-14] MEDS: INSULIN ASPART 100 UNITS/ML 3 ML PEN SC SCH ×4 (08:35→21:13)
[2017-12-14] MEDS: INSULIN GLARGINE SOLOSTAR 100 UNITS/ML 3 ML PEN SC SCH ×2 (08:36→21:13)
--- NOTE | 2017-12-14 09:07 | Pharmacy Progress Note ---
Pharmacy Glycemic Short Note 2 Date of Service Dec 14, 2017. OUTPATIENT ANTIDIABETIC REGIMEN: * n/a * A1c = 7.3% on 12/11/17 <-up from 6.1% on 10/20/17 Item Value Date Time Bedside Glucose 150 mg/dl H 12/12/17 0746 Bedside Glucose 135 mg/dl H 12/12/17 1142 Bedside Glucose 267 mg/dl H 12/12/17 1621 Bedside Glucose 219 mg/dl H 12/12/17 2028 Bedside Glucose 216 mg/dl H 12/13/17 0733 Bedside Glucose 194 mg/dl H 12/13/17 1118 Bedside Glucose 151 mg/dl H 12/13/17 1631 Bedside Glucose 203 mg/dl H 12/13/17 2037 Bedside Glucose 153 mg/dl H 12/14/17 0714 ASSESSMENT: * Mr. Ramírez has been receiving 51-88 units of insulin per day based on steroids/PO intake/dextrose IVF * Patient is tolerating PO intake well per CHO counts. * AM fasting BSG is slightly elevated at 153 mg/dl --> however pt with continuous D5W running d/t IV heparin infusion. AM fasting BSG is trending downwards with current basal insulin dosing, therefore, no dose increase needed. AM fasting BSG likely to be in goal range tomorrow once Lantus dosing at steady state. * Post-prandial BSGs are elevated/BSGs rise throughout the day therefore Tighten CF/CR * Insulin will need significantly tapered once heparin infusion is stopped PLAN FOR INPATIENT GLYCEMIC CONTROL: * Basal insulin - no change * Lantus 21 units SQ BID * Lantus dosing was given per tasha scale this morning, therefore, pt only received 15 units this morning. Will order 27 units Lantus to be given with dinner for a total dose of 42 units today. Will start Lantus 21 units SQ BID tomorrow. * Bolus insulin - tighten CR * NovoLog per scale ACHS or Q6hrs while NPO * Goal Range: Low 110 mg/dL - High 140 mg/dL * Correction Factor: 20 mg/dL/unit * Nutritional / Prandial insulin per carb ratio of 1 unit per 5 grams CHO consumed PLAN FOR DISCHARGE: * A1c is indicative of diabetes * Would recommend lifestyle modification in addition to metformin 500 mg BID as 1st line agent for diabetes diagnosis
[2017-12-14] MEDS: HEPARIN 25,000 UNIT/500ML D5W 500 ML IV SCH (10:24)
[2017-12-14] MEDS: TRAMADOL HCL 50 MG TAB PO PRN (14:34)
--- NOTE | 2017-12-14 15:28 | Progress Note ---
Medicine Progress Note Date & Time of Visit: Dec 14, 2017 at 15:21. Subjective Pt was seen and examined Lying in bed with no distress Denies any chest pain, palpitation, dizziness and SOB Objective Last 8 Hrs Date Time Temp Pulse Resp B/P (MAP) Pulse Ox O2 Delivery O2 Flow Rate FiO2 12/14/17 12:05 36.5 74 18 116/65 (82) 95 Room Air 12/14/17 11:10 90 96 12/14/17 08:00 Room Air 12/14/17 07:34 36.6 91 18 124/84 (97) 94 Room Air Physical Exam: General- No acute distress Head- atraumatic Eyes- PERRL, EOMI ENT- oropharynx clear Neck- supple, no JVD Lungs- clear to auscultation Heart- regular rhythm; no murmur Abdomen- normal bowel sounds, soft Extremities- +edema, ankle cuff at the rail of bed Neuro- alert, oriented x 3; PERRL, EOMI; no facial palsy Skin- warm & dry Laboratory Results: Last 24 Hours Test 12/13/17 16:31 12/13/17 20:37 12/14/17 01:01 12/14/17 07:14 Bedside Glucose 151 mg/dl 203 mg/dl 153 mg/dl White Blood Count 15.34 K/uL Red Blood Count 2.74 M/uL Hemoglobin 9.8 g/dL Hematocrit 28.8 % Mean Corpuscular Volume 105.1 fL Mean Corpuscular Hemoglobin 35.8 pg Mean Corpuscular Hemoglobin Concent 34.0 g/dl Platelet Count 94 K/uL Mean Platelet Volume 10.8 fL Neutrophils (%) (Auto) 86.2 % Lymphocytes (%) (Auto) 8.7 % Monocytes (%) (Auto) 3.8 % Eosinophils (%) (Auto) 0.1 % Basophils (%) (Auto) 0.1 % Neutrophils # (Auto) 13.23 K/uL Lymphocytes # (Auto) 1.34 K/uL Monocytes # (Auto) 0.58 K/uL Eosinophils # (Auto) 0.01 K/uL Basophils # (Auto) 0.01 K/uL RDW Standard Deviation 61.7 fL RDW Coefficient of Variation 16.3 % Immature Granulocyte % (Auto) 1.1 % Immature Granulocyte # (Auto) 0.17 K/uL Prothrombin Time 11.5 SECONDS Prothromb Time International Ratio 1.1 Activated Partial Thromboplast Time 50.5 SECONDS Partial Thromboplastin Ratio 1.9 Sodium Level 137 mmol/L Potassium Level 4.3 mmol/L Chloride Level 105 mmol/L Carbon Dioxide Level 28 mmol/L Anion Gap 4.0 mmol/L Blood Urea Nitrogen 29 mg/dl Creatinine 0.93 mg/dl Est Creatinine Clear Calc Drug Dose 77.5 ml/min Estimated GFR () 92.7 Estimated GFR (Non- 80.0 BUN/Creatinine Ratio 31.4 Random Glucose 190 mg/dl Calcium Level 8.8 mg/dl Test 12/14/17 11:17 Bedside Glucose 124 mg/dl Assessment & Plan B/L DVT and PE Doppler of venous lower extremities showed occlusive or nearly occlusive deep venous thrombosis of the right gastrocnemius vein Extensive deep venous thrombosis of the left lower extremity extends from the femoral vein into the lower leg. CTA chest showed S positive for right and to a lesser extent left basilar pulmonary emboli. Has been on heparin drip High risks for bleeding complications due to hx of thrombocytopenia, esophageal varices S/p IVC filter done today by Dr. Fields On heparin drip Hematology on board Recommended Coumadin and to keep INR between 1.6 to 2 due to risks of bleeding from esophageal varices and thrombocytopenia Coumadin increased to 5 mg today INR 1.1 today Monitor INR closely Continue Coumadin for mcc Hepatic Nodule MRI of the liver showed 17 mm T2 mass within the right hepatic lobe is likely a cyst over a solid lesion Will need 6 month follow-up study AFP normal Thrombocytopenia Platelet slightly increased to 94 Monitor CBC Hx cerebrovascular accident no focal neurological deficits On aspirin History of atrial fibrillation Rate controlled with the Lopressor, digoxin, Cardizem Cardiology on board Compensated cardiomyopathy No signs of fluid overload Hold lasix, lisinopril and lopressor for now Stable ECHO on 10/29 * Normal LV chamber size with mild concentric LVH. * Mildly reduced LV systolic function with mild global hypokinesis, EF 45-50%. * No segmental left ventricular wall motion abnormalities are noted. * Grade III diastolic dysfunction. * Aortic valve sclerosis mild, without significant aortic valvular stenosis. * There is moderate to severe mitral regurgitation. The mitral regurgitant jet is posteriorly directed, which is consistent with anterior leaflet pathology. * Severe biatrial enlargement. * Intact interatrial septum. DM type 2 Recent Hba1c 7.3 Newly diagnosed Pharmacy on board for glycemic management Monitor BS Hypertension. BP in the low side Will hold Lisinopril/Lasix and Metoprol for now Continue monitor BP closely Gastroesophageal reflux disease on Zantac. Deep venous thrombosis prophylaxis, IV heparin. CODE STATUS FULL CODE DISPOSITION Will discharge once INR at goal Current Inpatient Medications: Current Inpatient Medications Medications (Trade) Dose Ordered Sig/Fransisca Route Start Time Stop Time Status Last Admin Dose Admin Acetaminophen (Tylenol Tab) 650 mg Q4H PRN PO 12/10/17 01:15 01/09/18 01:14 Al Hydrox/Mg Hydrox/Simethicone (Maalox Max Susp) 15 ml Q4H PRN PO 12/10/17 01:15 01/09/18 01:14 Ondansetron HCl (Zofran Inj) 4 mg Q6H PRN IV 12/10/17 01:15 01/09/18 01:14 Polyethylene (Miralax Powder Packet) 17 gm DAILY PRN PO 12/10/17 01:15 01/09/18 01:14 Aspirin (Aspirin Chew) 81 mg DAILY PO 12/10/17 09:00 01/09/18 08:59 12/14/17 08:25 81 MG Cyanocobalamin (Vitamin B-12 Tab) 1,000 mcg DAILY PO 12/10/17 09:00 01/09/18 08:59 12/14/17 08:26 1,000 MCG Digoxin (Lanoxin Tab) 0.125 mg DAILY@1600 PO 12/10/17 16:00 01/09/18 15:59 12/13/17 16:46 0.125 MG Diltiazem HCl (TIAzac CAP) 120 mg QAM PO 12/10/17 09:00 01/09/18 08:59 12/14/17 08:26 120 MG Salmeterol Xinafoate/ Fluticasone (Advair Diskus 100/50 Inh) 1 puff BID INH 12/10/17 09:00 01/09/18 08:59 12/14/17 08:26 1 PUFF Folic Acid (Folvite Tab) 1 mg DAILY PO 12/10/17 09:00 01/09/18 08:59 12/14/17 08:27 1 MG Levalbuterol (Xopenex Hfa Inhaler) 1 puffs TID PRN INH 12/10/17 01:15 01/09/18 01:14 Lisinopril (Zestril Tab) 5 mg QAM PO 12/10/17 09:00 01/09/18 08:59 12/14/17 08:30 5 MG Metoprolol Tartrate (Lopressor Tab) 100 mg BID PO 12/10/17 09:00 01/09/18 08:59 12/14/17 08:27 100 MG Nitroglycerin (Nitrostat Tab) 0.4 mg PRN UT 12/10/17 01:15 01/09/18 01:14 Ranitidine HCl (zANTac TAB) 150 mg BID PO 12/10/17 09:00 01/09/18 08:59 12/14/17 08:26 150 MG Tamsulosin HCl (Flomax Cap) 0.4 mg DAILY PO 12/10/17 09:00 01/09/18 08:59 12/14/17 08:26 0.4 MG Terbinafine HCl (Lamisil At Cream) 1 appl BID EXT 12/10/17 09:00 01/09/18 08:59 12/14/17 08:25 1 APPL Lactulose (Chronulac Syrup) 30 gm BID PO 12/10/17 09:00 01/09/18 08:59 12/14/17 08:25 30 GM Levalbuterol (Xopenex 0.63 Mg/ 3 Ml Neb) 0.63 mg Q2R PRN INH 12/10/17 01:15 01/09/18 01:14 Insulin Aspart (novoLOG ASPART) SLIDING SCALE G... ACHS SC 12/10/17 07:00 01/09/18 06:59 12/14/17 12:54 15 UNITS Morphine Sulfate (MoRPHine SULFATE INJ) 2 mg Q3HWA PRN IV 12/10/17 01:45 12/24/17 01:44 12/14/17 08:25 2 MG Glucose (Glucose 40% Gel) 15-30 GRAMS 15 GRAMS... UD PRN PO 12/10/17 02:15 01/09/18 02:14 Glucose (Glucose Chew Tab) 4-8 Tablets 4 Tabl... UD PRN PO 12/10/17 02:15 01/09/18 02:14 Dextrose (Dextrose 50% 50ML Syringe) 25-50ML 25ML FOR ... UD PRN IV 12/10/17 02:15 01/09/18 02:14 Glucagon (Glucagon Inj) 1 mg UD PRN IM 12/10/17 02:15 01/09/18 02:14 Carbohydrates (Carbohydrates For Hypoglycemia) 15-30 GRAMS 15 grams if BSG 54-69... UD PRN PO 12/10/17 02:15 01/09/18 02:14 Heparin Sodium/ Dextrose 500 ml @ 27 mls/hr [id number] IV 12/10/17 03:15 01/09/18 03:14 12/14/17 10:24 27 MLS/HR Miscellaneous Information (Consult Glycemic Management Pharmacy) 1 ea DAILY PRN N/A 12/10/17 06:29 01/09/18 06:28 Insulin Glargine (Lantus Solostar Pen) SEE PROTOCOL TEXT BID SC 12/10/17 09:00 01/09/18 08:59 12/14/17 08:36 15 UNITS Furosemide (Lasix Tab) 40 mg QAM PO 12/11/17 09:00 01/10/18 08:59 12/14/17 08:25 40 MG Gadoxetate Disodium (Eovist (Non-Wt Based Procedure)) 10 ml UD PRN IV 12/11/17 00:45 12/15/17 00:44 Tramadol HCl (Ultram Tab) not relieved by tylenol @ Q6H PRN PO 12/12/17 19:45 01/11/18 19:44 12/14/17 14:34 50 MG Insulin Glargine (Lantus Solostar Pen) 21 units BID SC 12/15/17 09:00 01/14/18 08:59 Insulin Glargine (Lantus Solostar Pen) 27 units 12/14/17@1645 SC 12/14/17 16:45 12/14/17 16:46 Warfarin Sodium (Coumadin Tab) 5 mg DAILY@16 PO 12/14/17 16:00 01/11/18 15:59 UNV
[2017-12-14] MEDS ORDERED: WARFARIN SOD 5 MG TAB PO SCH (16:00)
[2017-12-14] MEDS: DIGOXIN 0.125 MG TAB PO SCH (16:13)
[2017-12-14] MEDS ORDERED: INSULIN GLARGINE SOLOSTAR 100 UNITS/ML 3 ML PEN SC SCH (16:45)
--- NOTE | 2017-12-14 16:49 | Hematology/Oncology Prog Note ---
Hematology/Onc Progress Note Date of Service Dec 14, 2017. Subjective Patient was rounded on at bedside. He denies chest pain or dyspnea. He states his legs continue with pain generalized, but improved. He denies any bloody or black stools, no hematuria. Review of Systems: Respiratory: No cough, No shortness of breath Cardiovascular: No chest pain Abdomen: No GI bleeding Musculoskeletal: + see HPI Male : No hematuria Vital Signs Vital Signs Past 12 Hours Date Time Temp Pulse Resp B/P (MAP) Pulse Ox O2 Delivery O2 Flow Rate FiO2 12/14/17 16:13 73 12/14/17 15:50 36.9 82 20 86/53 (64) 95 Room Air 12/14/17 12:05 36.5 74 18 116/65 (82) 95 Room Air 12/14/17 11:10 90 96 12/14/17 08:00 Room Air 12/14/17 07:34 36.6 91 18 124/84 (97) 94 Room Air Physical Exam Constitutional: Level of Distress: NAD, chronically ill Lungs: Auscuitation: breath sounds normal, no wheezing Cardiovascular: Heart Auscultation: RRR Abdomen: Bowel Sounds: normal Extremities: edema (LLE) Laboratory Last 24 Hours Test 12/13/17 20:37 12/14/17 01:01 12/14/17 07:14 12/14/17 11:17 Bedside Glucose 203 mg/dl 153 mg/dl 124 mg/dl White Blood Count 15.34 K/uL Red Blood Count 2.74 M/uL Hemoglobin 9.8 g/dL Hematocrit 28.8 % Mean Corpuscular Volume 105.1 fL Mean Corpuscular Hemoglobin 35.8 pg Mean Corpuscular Hemoglobin Concent 34.0 g/dl Platelet Count 94 K/uL Mean Platelet Volume 10.8 fL Neutrophils (%) (Auto) 86.2 % Lymphocytes (%) (Auto) 8.7 % Monocytes (%) (Auto) 3.8 % Eosinophils (%) (Auto) 0.1 % Basophils (%) (Auto) 0.1 % Neutrophils # (Auto) 13.23 K/uL Lymphocytes # (Auto) 1.34 K/uL Monocytes # (Auto) 0.58 K/uL Eosinophils # (Auto) 0.01 K/uL Basophils # (Auto) 0.01 K/uL RDW Standard Deviation 61.7 fL RDW Coefficient of Variation 16.3 % Immature Granulocyte % (Auto) 1.1 % Immature Granulocyte # (Auto) 0.17 K/uL Prothrombin Time 11.5 SECONDS Prothromb Time International Ratio 1.1 Activated Partial Thromboplast Time 50.5 SECONDS Partial Thromboplastin Ratio 1.9 Sodium Level 137 mmol/L Potassium Level 4.3 mmol/L Chloride Level 105 mmol/L Carbon Dioxide Level 28 mmol/L Anion Gap 4.0 mmol/L Blood Urea Nitrogen 29 mg/dl Creatinine 0.93 mg/dl Est Creatinine Clear Calc Drug Dose 77.5 ml/min Estimated GFR () 92.7 Estimated GFR (Non- 80.0 BUN/Creatinine Ratio 31.4 Random Glucose 190 mg/dl Calcium Level 8.8 mg/dl Test 12/14/17 16:32 Bedside Glucose 106 mg/dl Assessment & Plan 1. Acute bilateral DVT with bilateral PE 2. Thrombocytopenia in setting of chronic liver disease, no splenomegaly 3. Normocytic anemia- likely of multiple mechanisms including chronic disease and inflammation * Patient is s/p IVC filter placement on 12/12/17 * Patient remains on heparin gtt, on warfarin bridge with goal 1.6- 2 * Patient has not had any bleeding complications thus far * Dr. Najera is recommending indefinite anticoagulation as long as no contraindications to anticoagulation develop, i.e. worsening thrombocytopenia or anemia, falls, bleeding complication with varices * Patient will be monitored closely by his HCP at [facility] * hypercoag work up- proteins C+S and antithrombin 3 were all low but these can be affected with acute VTE episode, so recommend that there are rechecked in 3 months * Also a low positive IgM cardiolipin was detected, but beta glycoproteins were negative, lupus sensitive APTT not run * So recommend repeat cardiolipins with lupus anticoagulant panel in 3 months * Prothrombin gene, factor V leiden and homocysteine were all negative * Informed patient that his management of his VTE does not change by these results since long-term anticoagulation already recommended * Continue to monitor CBCD daily while hospitalized Dr. Najera is the attending it security consultant
[2017-12-15] MEDS: HEPARIN 25,000 UNIT/500ML D5W 500 ML IV SCH ×2 (04:54→22:44)
[2017-12-15 06:33] LABS: HEMATOCRIT 31.1 % (42-52); HEMOGLOBIN 10.4 g/dL (14.0-18.0); MEAN CELL VOLUME 103.7 fL (80-100); MEAN CORPUSCULAR HEMOGLOBIN 34.7 pg (25-34); MEAN CORPUSCULAR HGB CONC 33.4 g/dl (32-36); MEAN PLATELET VOLUME 10.5 fL (7.4-10.4); PLATELET COUNT 109 K/uL (130-400); RED CELL DISTRIBUTION WIDTH SD 60.9 fL (36.4-46.3); WHITE BLOOD COUNT 12.48 K/uL (4.8-10.8)
[2017-12-15 06:54] LABS: INR 1.6 (0.9-1.1)
[2017-12-15 07:00] LABS: PTT PATIENT 51.6 SECONDS (21.0-31.0)
[2017-12-15 07:14] VITALS: BP 134/72; PULSE 98; TEMP 36.7; O2SAT 96
[2017-12-15] MEDS: LACTULOSE SYRUP 30 GM/45 ML UDP PO SCH ×2 (08:00→20:36)
[2017-12-15] MEDS: RANITIDINE HCL 150 MG TAB PO SCH ×2 (08:01→20:36)
[2017-12-15] MEDS: ASPIRIN 81 MG CHEW PO SCH (08:01)
[2017-12-15] MEDS: TAMSULOSIN HCL 0.4 MG CAP PO SCH (08:01)
[2017-12-15] MEDS: CYANOCOBALAMIN 500 MCG TAB (VIT B-12) PO SCH (08:01)
[2017-12-15] MEDS: FLUTICASONE/SALMETEROL 100/50 (ADVAIR) 14 PUFF/1 INHALER INH SCH ×2 (08:01→20:31)
[2017-12-15] MEDS: TERBINAFINE CR 30 GM TUBE EXT SCH ×2 (08:01→20:32)
[2017-12-15] MEDS: DILTIAZEM HCL 120 MG EXT REL CAP PO SCH (08:02)
[2017-12-15] MEDS: INSULIN ASPART 100 UNITS/ML 3 ML PEN SC SCH ×4 (08:10→20:35)
[2017-12-15] MEDS: TRAMADOL HCL 50 MG TAB PO PRN ×2 (08:10→14:14)
[2017-12-15] MEDS ORDERED: INSULIN GLARGINE SOLOSTAR 100 UNITS/ML 3 ML PEN SC SCH ×2 (09:00→17:00)
--- NOTE | 2017-12-15 10:18 | Pharmacy Progress Note ---
Pharmacy Glycemic Short Note 2 Date of Service Dec 15, 2017. OUTPATIENT ANTIDIABETIC REGIMEN: * n/a * A1c = 7.3% on 12/11/17 <-up from 6.1% on 10/20/17 Item Value Date Time Bedside Glucose 150 mg/dl H 12/12/17 0746 Bedside Glucose 135 mg/dl H 12/12/17 1142 Bedside Glucose 267 mg/dl H 12/12/17 1621 Bedside Glucose 219 mg/dl H 12/12/17 2028 Bedside Glucose 216 mg/dl H 12/13/17 0733 Bedside Glucose 194 mg/dl H 12/13/17 1118 Bedside Glucose 151 mg/dl H 12/13/17 1631 Bedside Glucose 203 mg/dl H 12/13/17 2037 Bedside Glucose 153 mg/dl H 12/14/17 0714 Bedside Glucose 124 mg/dl H 12/14/17 1117 Bedside Glucose 106 mg/dl H 12/14/17 1632 Bedside Glucose 172 mg/dl H 12/14/17 2039 Bedside Glucose 116 mg/dl H 12/15/17 0742 ASSESSMENT: * Mr. Ramírez has been receiving ~88 units of insulin per day based on steroids/PO intake/dextrose IVF with adequate glycemic control * Pt is not on any antidiabetic medications as an outpatient but is receiving high dose insulin regimen secondary to continuous dextrose infusion with heparin. INR = 1.6 (his goal is 1.6-2) today so I am assuming that heparin infusion will be stopped today. * Insulin will need significantly tapered once heparin infusion is stopped * Will hold basal insulin this morning and reassess based on heparin order. * Pt received extra basal insulin dosing yesterday so he will still have enough on board until this evening. PLAN FOR INPATIENT GLYCEMIC CONTROL: * Basal insulin - decrease dosing to prep for d.c * HOLD dose this morning in anticipation of heparin infusion being d/c * Decrease dosing to once daily - standard outpatient dosing of 0.2units/kg; this equates to Lantus 17 units SQ Q24hrs * Will continue to taper until discharge based on BSG trends. Pt will need antidiabetic agent at d/c based on A1c but it does not have to be insulin. * Bolus insulin - no change * NovoLog per scale ACHS or Q6hrs while NPO * Goal Range: Low 110 mg/dL - High 140 mg/dL * Correction Factor: 20 mg/dL/unit * Nutritional / Prandial insulin per carb ratio of 1 unit per 5 grams CHO consumed PLAN FOR DISCHARGE: * A1c is indicative of diabetes as it is >6.5% * Metformin, if not contraindicated and if tolerated, is the preferred initial pharmacological agent for type 2 diabetes. Metformin has a long-standing evidence base for efficacy and safety, is inexpensive, and may reduce risk of cardiovascular events. 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 Continue to titrate metformin dosing upwards as recommended. Dosage increases should be made in increments of 500 mg weekly, up to 2,000 mg/day PO, given in divided doses. Doses above 2000 mg/day may be better tolerated if divided and given 3 times per day with meals. Max: 2,550 mg/day PO, in divided doses
[2017-12-15 15:02] VITALS: BP 108/63; PULSE 84; TEMP 36.8; O2SAT 94
[2017-12-15] MEDS ORDERED: WARFARIN SOD 2 MG TAB PO SCH (16:00)
[2017-12-15] MEDS: DIGOXIN 0.125 MG TAB PO SCH (16:36)
--- NOTE | 2017-12-15 18:31 | Progress Note ---
Medicine Progress Note Date & Time of Visit: Dec 15, 2017 at 18:28. Subjective Pt was seen and examined Lying in bed with no distress He said that he feels slightly better today Denies and chest pain, palpitation,dizziness and SOB Objective Last 8 Hrs Date Time Temp Pulse Resp B/P (MAP) Pulse Ox O2 Delivery O2 Flow Rate FiO2 12/15/17 16:45 Room Air 12/15/17 16:36 87 12/15/17 15:02 36.8 84 18 108/63 (78) 94 Room Air Physical Exam: General- No acute distress Head- atraumatic Eyes- PERRL, EOMI ENT- oropharynx clear Neck- supple, no JVD Lungs- clear to auscultation Heart- regular rhythm; no murmur Abdomen- normal bowel sounds, soft Extremities- +edema, ankle cuff at the rail of bed Neuro- alert, oriented x 3; PERRL, EOMI; no facial palsy Skin- warm & dry Laboratory Results: Last 24 Hours Test 12/14/17 20:39 12/15/17 06:14 12/15/17 07:42 12/15/17 11:47 Bedside Glucose 172 mg/dl 116 mg/dl 176 mg/dl White Blood Count 12.48 K/uL Red Blood Count 3.00 M/uL Hemoglobin 10.4 g/dL Hematocrit 31.1 % Mean Corpuscular Volume 103.7 fL Mean Corpuscular Hemoglobin 34.7 pg Mean Corpuscular Hemoglobin Concent 33.4 g/dl RDW Standard Deviation 60.9 fL RDW Coefficient of Variation 16.0 % Platelet Count 109 K/uL Mean Platelet Volume 10.5 fL Prothrombin Time 17.1 SECONDS Prothromb Time International Ratio 1.6 Activated Partial Thromboplast Time 51.6 SECONDS Partial Thromboplastin Ratio 2.0 Test 12/15/17 16:30 Bedside Glucose 147 mg/dl Assessment & Plan B/L DVT and PE Doppler of venous lower extremities showed occlusive or nearly occlusive deep venous thrombosis of the right gastrocnemius vein Extensive deep venous thrombosis of the left lower extremity extends from the femoral vein into the lower leg. CTA chest showed S positive for right and to a lesser extent left basilar pulmonary emboli. Has been on heparin drip High risks for bleeding complications due to hx of thrombocytopenia, esophageal varices S/p IVC filter done today by Dr. Fields On heparin drip Hematology on board Recommended Coumadin and to keep INR between 1.6 to 2 due to risks of bleeding from esophageal varices and thrombocytopenia Coumadin decreased to 2mg today INR 1.6 today Monitor INR closely Will continue heparin drip for another 24 hrs Continue Coumadin for fpc Hepatic Nodule MRI of the liver showed 17 mm T2 mass within the right hepatic lobe is likely a cyst over a solid lesion Will need 6 month follow-up study AFP normal Thrombocytopenia Platelet slightly increased to 94 Monitor CBC Hx cerebrovascular accident no focal neurological deficits On aspirin History of atrial fibrillation Rate controlled with the Lopressor, digoxin, Cardizem Cardiology on board Compensated cardiomyopathy No signs of fluid overload Hold lasix, lisinopril and lopressor for now Stable ECHO on 10/29 * Normal LV chamber size with mild concentric LVH. * Mildly reduced LV systolic function with mild global hypokinesis, EF 45-50%. * No segmental left ventricular wall motion abnormalities are noted. * Grade III diastolic dysfunction. * Aortic valve sclerosis mild, without significant aortic valvular stenosis. * There is moderate to severe mitral regurgitation. The mitral regurgitant jet is posteriorly directed, which is consistent with anterior leaflet pathology. * Severe biatrial enlargement. * Intact interatrial septum. DM type 2 Recent Hba1c 7.3 Newly diagnosed Pharmacy on board for glycemic management Monitor BS Hypertension. BP in the low side Will hold Lisinopril/Lasix and Metoprol for now Continue monitor BP closely Gastroesophageal reflux disease on Zantac. Deep venous thrombosis prophylaxis, IV heparin. CODE STATUS FULL CODE DISPOSITION Will discharge once INR at goal Current Inpatient Medications: Current Inpatient Medications Medications (Trade) Dose Ordered Sig/Fransisca Route Start Time Stop Time Status Last Admin Dose Admin Acetaminophen (Tylenol Tab) 650 mg Q4H PRN PO 12/10/17 01:15 01/09/18 01:14 Al Hydrox/Mg Hydrox/Simethicone (Maalox Max Susp) 15 ml Q4H PRN PO 12/10/17 01:15 01/09/18 01:14 Ondansetron HCl (Zofran Inj) 4 mg Q6H PRN IV 12/10/17 01:15 01/09/18 01:14 Polyethylene (Miralax Powder Packet) 17 gm DAILY PRN PO 12/10/17 01:15 01/09/18 01:14 Aspirin (Aspirin Chew) 81 mg DAILY PO 7/30/18 09:00 01/09/18 08:59 12/15/17 08:01 81 MG Cyanocobalamin (Vitamin B-12 Tab) 1,000 mcg DAILY PO 12/10/17 09:00 01/09/18 08:59 12/15/17 08:01 1,000 MCG Digoxin (Lanoxin Tab) 0.125 mg DAILY@1600 PO 12/10/17 16:00 01/09/18 15:59 12/15/17 16:36 0.125 MG Diltiazem HCl (TIAzac CAP) 120 mg QAM PO 12/10/17 09:00 01/09/18 08:59 12/15/17 08:02 120 MG Salmeterol Xinafoate/ Fluticasone (Advair Diskus 100/50 Inh) 1 puff BID INH 12/10/17 09:00 01/09/18 08:59 12/15/17 08:01 1 PUFF Folic Acid (Folvite Tab) 1 mg DAILY PO 12/10/17 09:00 01/09/18 08:59 12/15/17 08:02 1 MG Levalbuterol (Xopenex Hfa Inhaler) 1 puffs TID PRN INH 12/10/17 01:15 01/09/18 01:14 Lisinopril (Zestril Tab) 5 mg QAM PO 12/10/17 09:00 01/09/18 08:59 Future Hold 12/14/17 08:30 5 MG Metoprolol Tartrate (Lopressor Tab) 100 mg BID PO 12/10/17 09:00 01/09/18 08:59 Future Hold 12/14/17 08:27 100 MG Nitroglycerin (Nitrostat Tab) 0.4 mg PRN UT 12/10/17 01:15 01/09/18 01:14 Ranitidine HCl (zANTac TAB) 150 mg BID PO 12/10/17 09:00 01/09/18 08:59 12/15/17 08:01 150 MG Tamsulosin HCl (Flomax Cap) 0.4 mg DAILY PO 12/10/17 09:00 01/09/18 08:59 12/15/17 08:01 0.4 MG Terbinafine HCl (Lamisil At Cream) 1 appl BID EXT 12/10/17 09:00 01/09/18 08:59 12/15/17 08:01 1 APPL Lactulose (Chronulac Syrup) 30 gm BID PO 12/10/17 09:00 01/09/18 08:59 12/15/17 08:00 30 GM Levalbuterol (Xopenex 0.63 Mg/ 3 Ml Neb) 0.63 mg Q2R PRN INH 12/10/17 01:15 01/09/18 01:14 Insulin Aspart (novoLOG ASPART) SLIDING SCALE G... ACHS SC 12/10/17 07:00 01/09/18 06:59 12/15/17 17:30 16 UNITS Morphine Sulfate (MoRPHine SULFATE INJ) 2 mg Q3HWA PRN IV 12/10/17 01:45 12/24/17 01:44 12/14/17 16:15 2 MG Glucose (Glucose 40% Gel) 15-30 GRAMS 15 GRAMS... UD PRN PO 12/10/17 02:15 01/09/18 02:14 Glucose (Glucose Chew Tab) 4-8 Tablets 4 Tabl... UD PRN PO 12/10/17 02:15 01/09/18 02:14 Dextrose (Dextrose 50% 50ML Syringe) 25-50ML 25ML FOR ... UD PRN IV 12/10/17 02:15 01/09/18 02:14 Glucagon (Glucagon Inj) 1 mg UD PRN IM 12/10/17 02:15 01/09/18 02:14 Carbohydrates (Carbohydrates For Hypoglycemia) 15-30 GRAMS 15 grams if BSG 54-69... UD PRN PO 12/10/17 02:15 01/09/18 02:14 Heparin Sodium/ Dextrose 500 ml @ 27 mls/hr [id number] IV 12/10/17 03:15 01/09/18 03:14 12/15/17 04:54 27 MLS/HR Miscellaneous Information (Consult Glycemic Management Pharmacy) 1 ea DAILY PRN N/A 12/10/17 06:29 01/09/18 06:28 Furosemide (Lasix Tab) 40 mg QAM PO 12/11/17 09:00 01/10/18 08:59 Future Hold 12/14/17 08:25 40 MG Tramadol HCl (Ultram Tab) not relieved by tylenol @ Q6H PRN PO 12/12/17 19:45 01/11/18 19:44 12/15/17 14:14 50 MG Warfarin Sodium (Coumadin Tab) 2 mg DAILY@16 PO 12/15/17 16:00 01/14/18 15:59 12/15/17 16:36 2 MG Insulin Glargine (Lantus Solostar Pen) 17 units QDD SC 12/15/17 17:00 01/14/18 16:59 12/15/17 17:30 17 UNITS
[2017-12-15 22:34] VITALS: O2SAT 94
[2017-12-15 23:32] VITALS: BP 145/83; PULSE 81; TEMP 37.1; O2SAT 93
[2017-12-16] MEDS: TRAMADOL HCL 50 MG TAB PO PRN ×2 (03:03→15:02)
[2017-12-16 07:10] LABS: HEMATOCRIT 28.5 % (42-52); HEMOGLOBIN 9.5 g/dL (14.0-18.0); MEAN CELL VOLUME 104.4 fL (80-100); MEAN CORPUSCULAR HEMOGLOBIN 34.8 pg (25-34); MEAN CORPUSCULAR HGB CONC 33.3 g/dl (32-36); MEAN PLATELET VOLUME 10.5 fL (7.4-10.4); PLATELET COUNT 114 K/uL (130-400); RED CELL DISTRIBUTION WIDTH CV 16.1 % (11.5-14.5); RED CELL DISTRIBUTION WIDTH SD 60.9 fL (36.4-46.3); WHITE BLOOD COUNT 10.66 K/uL (4.8-10.8)
[2017-12-16 07:12] VITALS: BP 137/72; PULSE 106; TEMP 37; O2SAT 98
[2017-12-16] MEDS: TERBINAFINE CR 30 GM TUBE EXT SCH (07:25)
[2017-12-16] MEDS: FLUTICASONE/SALMETEROL 100/50 (ADVAIR) 14 PUFF/1 INHALER INH SCH (07:25)
[2017-12-16] MEDS: LACTULOSE SYRUP 30 GM/45 ML UDP PO SCH (07:25)
[2017-12-16] MEDS: TAMSULOSIN HCL 0.4 MG CAP PO SCH (07:25)
[2017-12-16] MEDS: RANITIDINE HCL 150 MG TAB PO SCH (07:26)
[2017-12-16] MEDS: CYANOCOBALAMIN 500 MCG TAB (VIT B-12) PO SCH (07:26)
[2017-12-16 07:29] LABS: INR 3.3 (0.9-1.1)
[2017-12-16 07:30] LABS: PTT PATIENT 66.4 SECONDS (21.0-31.0)
[2017-12-16] MEDS: ASPIRIN 81 MG CHEW PO SCH (07:42)
[2017-12-16] MEDS: DILTIAZEM HCL 120 MG EXT REL CAP PO SCH (07:42)
--- NOTE | 2017-12-16 07:55 | Pharmacy Progress Note ---
Pharmacy Glycemic Short Note 2 Date of Service Dec 16, 2017. OUTPATIENT ANTIDIABETIC REGIMEN: * n/a * A1c = 7.3% on 12/11/17 <-up from 6.1% on 10/20/17 but patient was recently on a prednisone taper [employer] which is most likely artificially inflating A1c. Item Value Date Time Bedside Glucose 150 mg/dl H 12/12/17 0746 Bedside Glucose 135 mg/dl H 12/12/17 1142 Bedside Glucose 267 mg/dl H 12/12/17 1621 Bedside Glucose 219 mg/dl H 12/12/17 2028 Bedside Glucose 216 mg/dl H 12/13/17 0733 Bedside Glucose 194 mg/dl H 12/13/17 1118 Bedside Glucose 151 mg/dl H 12/13/17 1631 Bedside Glucose 203 mg/dl H 12/13/17 2037 Bedside Glucose 153 mg/dl H 12/14/17 0714 Bedside Glucose 124 mg/dl H 12/14/17 1117 Bedside Glucose 106 mg/dl H 12/14/17 1632 Bedside Glucose 172 mg/dl H 12/14/17 2039 Bedside Glucose 116 mg/dl H 12/15/17 0742 Bedside Glucose 176 mg/dl H 12/15/17 1147 Bedside Glucose 147 mg/dl H 12/15/17 1630 Bedside Glucose 184 mg/dl H 12/15/172014 Bedside Glucose 188 mg/dl H 12/16/17 0730 ASSESSMENT: * Mr. Ramírez has been receiving ~88 units of insulin per day based on steroids/PO intake/dextrose IVF with adequate glycemic control * Pt is not on any antidiabetic medications as an outpatient but is receiving high dose insulin regimen secondary to continuous dextrose infusion with heparin. INR = 1.6 yesterday and 3.3 today. I am assuming that heparin infusion will be stopped today. * Insulin will need significantly tapered once heparin infusion is stopped ( heparin is mixed in dextrose) * Basal insulin cut in half yesterday when INR = 1.6 in anticipation of heparin infusion stopping. * AM fasting BSG slightly elevated at 188mg/dl this morning but will not increase basal insulin dosing since likely BSGs will improve once heparin stopped. * Post-prandial BSGs in range with current CF/CR. Will loosen parameters once heparin stopped. PLAN FOR INPATIENT GLYCEMIC CONTROL: * Basal insulin - decrease dosing to prep for d.c * Continue decreased dosing in anticipation of heparin drip stopping * Decrease dosing to once daily - standard outpatient dosing of 0.2units/kg; this equates to Lantus 17 units SQ Q24hrs * Will continue to taper until discharge based on BSG trends. * Bolus insulin - loosen parameters when heparin stopped * NovoLog per scale ACHS or Q6hrs while NPO * Goal Range: Low 110 mg/dL - High 140 mg/dL * Correction Factor: 25 mg/dL/unit * Nutritional / Prandial insulin per carb ratio of 1 unit per 9 grams CHO consumed PLAN FOR DISCHARGE: * A1c = 7.3% on 12/11/17 HOWEVER, patient was recently on prednisone taper [employer] which is most likely artificially inflating A1c. * Previous A1c was 6.1% on 10/20/17 which indicates "pre-diabetes" * HbA1c of 5.7-6.4% indicates "pre-diabetes" --> ADA recommendation is to institute diabetes and atherosclerosis prevention May consider starting metformin for "pre-diabetes" * Metformin, if not contraindicated and if tolerated, is the preferred initial pharmacological agent for type 2 diabetes. Metformin has a long-standing evidence base for efficacy and safety, is inexpensive, and may reduce risk of cardiovascular events. * B12 supplementation may be necessary with termite helper metformin use * Recommend starting Metformin XR 500mg PO daily with evening meal. Continue to titrate metformin dosing upwards as recommended. Dosage increases should be made in increments of 500 mg weekly, up to 2,000 mg/day PO, given in divided doses. Doses above 2000 mg/day may be better tolerated if divided and given 3 times per day with meals. Max: 2,550 mg/day PO, in divided doses
[2017-12-16] MEDS: INSULIN ASPART 100 UNITS/ML 3 ML PEN SC SCH ×3 (08:10→17:07)
[2017-12-16 15:46] VITALS: BP 151/73; PULSE 92; TEMP 36.6; O2SAT 98
[2017-12-16] MEDS: DIGOXIN 0.125 MG TAB PO SCH (15:49)
[2017-12-16] MEDS ORDERED: WARFARIN SOD 1 MG TAB PO SCH (16:00)
--- NOTE | 2017-12-16 17:11 | Progress Note ---
Medicine Progress Note Date & Time of Visit: Dec 16, 2017 at 16:54. Subjective Pt was seen and examined Lying in bed with no distress Pt said that he feels fine Denies any chest pain, palpitation, hematuria, dizziness and SOB Objective Last 8 Hrs Date Time Temp Pulse Resp B/P (MAP) Pulse Ox O2 Delivery O2 Flow Rate FiO2 12/16/17 16:15 Room Air 12/16/17 15:49 93 12/16/17 15:46 36.6 92 18 151/73 (99) 98 Room Air Physical Exam: General- No acute distress Head- atraumatic Eyes- PERRL, EOMI ENT- oropharynx clear Neck- supple, no JVD Lungs- clear to auscultation Heart- regular rhythm; no murmur Abdomen- normal bowel sounds, soft Extremities- +edema, ankle cuff at the rail of bed Neuro- alert, oriented x 3; PERRL, EOMI; no facial palsy Skin- warm & dry Laboratory Results: Last 24 Hours Test 12/15/17 20:15 12/16/17 06:49 12/16/17 07:30 12/16/17 11:38 Bedside Glucose 184 mg/dl 188 mg/dl 153 mg/dl White Blood Count 10.66 K/uL Red Blood Count 2.73 M/uL Hemoglobin 9.5 g/dL Hematocrit 28.5 % Mean Corpuscular Volume 104.4 fL Mean Corpuscular Hemoglobin 34.8 pg Mean Corpuscular Hemoglobin Concent 33.3 g/dl RDW Standard Deviation 60.9 fL RDW Coefficient of Variation 16.1 % Platelet Count 114 K/uL Mean Platelet Volume 10.5 fL Prothrombin Time 33.5 SECONDS Prothromb Time International Ratio 3.3 Activated Partial Thromboplast Time 66.4 SECONDS Partial Thromboplastin Ratio 2.6 Test 12/16/17 16:38 Bedside Glucose 151 mg/dl Assessment & Plan B/L DVT and PE Doppler of venous lower extremities showed occlusive or nearly occlusive deep venous thrombosis of the right gastrocnemius vein Extensive deep venous thrombosis of the left lower extremity extends from the femoral vein into the lower leg. CTA chest showed S positive for right and to a lesser extent left basilar pulmonary emboli. Has been on heparin drip High risks for bleeding complications due to hx of thrombocytopenia, esophageal varices S/p IVC filter placed on 12/[address] Fields On heparin drip Hematology on board Recommended Coumadin and to keep INR between 1.6 to 2 due to risks of bleeding from esophageal varices and thrombocytopenia hypercoag work up- proteins C+S and antithrombin 3 were all low but these can be affected with acute VTE episode, so recommend that there are rechecked in 3 months also repeat cardiolipins with lupus anticoagulant panel in 3 months Hod today Coumadin dose INR 3.3 today Monitor INR closely D/C heparin drip Will need to be on halfway anticoagulant if able to tolerate without any complications Check INR in am and will dose Coumadin base on INR level Hepatic Nodule MRI of the liver showed 17 mm T2 mass within the right hepatic lobe is likely a cyst over a solid lesion Will need 6 month follow-up study AFP normal Thrombocytopenia Platelet slightly increased to 114 Monitor CBC Hx cerebrovascular accident no focal neurological deficits On aspirin History of atrial fibrillation Rate controlled with the Lopressor, digoxin, Cardizem Cardiology on board Compensated cardiomyopathy No signs of fluid overload Hold lasix, lisinopril and lopressor for now Stable ECHO on 10/29 * Normal LV chamber size with mild concentric LVH. * Mildly reduced LV systolic function with mild global hypokinesis, EF 45-50%. * No segmental left ventricular wall motion abnormalities are noted. * Grade III diastolic dysfunction. * Aortic valve sclerosis mild, without significant aortic valvular stenosis. * There is moderate to severe mitral regurgitation. The mitral regurgitant jet is posteriorly directed, which is consistent with anterior leaflet pathology. * Severe biatrial enlargement. * Intact interatrial septum. DM type 2 Recent Hba1c 7.3 Newly diagnosed Pharmacy on board for glycemic management Will start metformin 500mg on discharge Monitor BS Hypertension. BP in the low side Will hold Lisinopril/Lasix and Metoprol for now Continue monitor BP closely Gastroesophageal reflux disease on Zantac. Deep venous thrombosis prophylaxis, IV heparin. CODE STATUS FULL CODE DISPOSITION Check INR tomorrow (INR goal between 1.6 to 2) Monitor closely for signs of bleeding Current Inpatient Medications: Current Inpatient Medications Medications (Trade) Dose Ordered Sig/Fransisca Route Start Time Stop Time Status Last Admin Dose Admin Acetaminophen (Tylenol Tab) 650 mg Q4H PRN PO 12/10/17 01:15 01/09/18 01:14 Al Hydrox/Mg Hydrox/Simethicone (Maalox Max Susp) 15 ml Q4H PRN PO 12/10/17 01:15 01/09/18 01:14 Ondansetron HCl (Zofran Inj) 4 mg Q6H PRN IV 12/10/17 01:15 01/09/18 01:14 Polyethylene (Miralax Powder Packet) 17 gm DAILY PRN PO 12/10/17 01:15 01/09/18 01:14 Aspirin (Aspirin Chew) 81 mg DAILY PO 12/10/17 09:00 01/09/18 08:59 12/16/17 07:42 81 MG Cyanocobalamin (Vitamin B-12 Tab) 1,000 mcg DAILY PO 12/10/17 09:00 01/09/18 08:59 12/16/17 07:26 1,000 MCG Digoxin (Lanoxin Tab) 0.125 mg DAILY@1600 PO 12/10/17 16:00 01/09/18 15:59 12/16/17 15:49 0.125 MG Diltiazem HCl (TIAzac CAP) 120 mg QAM PO 12/10/17 09:00 01/09/18 08:59 12/16/17 07:42 120 MG Salmeterol Xinafoate/ Fluticasone (Advair Diskus 100/50 Inh) 1 puff BID INH 12/10/17 09:00 01/09/18 08:59 12/16/17 07:25 1 PUFF Folic Acid (Folvite Tab) 1 mg DAILY PO 12/10/17 09:00 01/09/18 08:59 12/16/17 07:26 1 MG Levalbuterol (Xopenex Hfa Inhaler) 1 puffs TID PRN INH 12/10/17 01:15 01/09/18 01:14 Lisinopril (Zestril Tab) 5 mg QAM PO 12/10/17 09:00 01/09/18 08:59 Future Hold 12/14/17 08:30 5 MG Metoprolol Tartrate (Lopressor Tab) 100 mg BID PO 12/10/17 09:00 01/09/18 08:59 Future Hold 12/14/17 08:27 100 MG Nitroglycerin (Nitrostat Tab) 0.4 mg PRN UT 12/10/17 01:15 01/09/18 01:14 Ranitidine HCl (zANTac TAB) 150 mg BID PO 12/10/17 09:00 01/09/18 08:59 12/16/17 07:26 150 MG Tamsulosin HCl (Flomax Cap) 0.4 mg DAILY PO 12/10/17 09:00 01/09/18 08:59 12/16/17 07:25 0.4 MG Terbinafine HCl (Lamisil At Cream) 1 appl BID EXT 12/10/17 09:00 01/09/18 08:59 12/16/17 07:25 1 APPL Lactulose (Chronulac Syrup) 30 gm BID PO 12/10/17 09:00 01/09/18 08:59 12/16/17 07:25 30 GM Levalbuterol (Xopenex 0.63 Mg/ 3 Ml Neb) 0.63 mg Q2R PRN INH 12/10/17 01:15 01/09/18 01:14 Insulin Aspart (novoLOG ASPART) SLIDING SCALE G... ACHS SC 12/10/17 07:00 01/09/18 06:59 12/16/17 12:12 9 UNITS Morphine Sulfate (MoRPHine SULFATE INJ) 2 mg Q3HWA PRN IV 12/10/17 01:45 12/24/17 01:44 12/14/17 16:15 2 MG Glucose (Glucose 40% Gel) 15-30 GRAMS 15 GRAMS... UD PRN PO 12/10/17 02:15 01/09/18 02:14 Glucose (Glucose Chew Tab) 4-8 Tablets 4 Tabl... UD PRN PO 12/10/17 02:15 01/09/18 02:14 Dextrose (Dextrose 50% 50ML Syringe) 25-50ML 25ML FOR ... UD PRN IV 12/10/17 02:15 01/09/18 02:14 Glucagon (Glucagon Inj) 1 mg UD PRN IM 12/10/17 02:15 01/09/18 02:14 Carbohydrates (Carbohydrates For Hypoglycemia) 15-30 GRAMS 15 grams if BSG 54-69... UD PRN PO 12/10/17 02:15 01/09/18 02:14 Miscellaneous Information (Consult Glycemic Management Pharmacy) 1 ea DAILY PRN N/A 12/10/17 06:29 01/09/18 06:28 Furosemide (Lasix Tab) 40 mg QAM PO 12/11/17 09:00 01/10/18 08:59 Future Hold 12/14/17 08:25 40 MG Tramadol HCl (Ultram Tab) not relieved by tylenol @ Q6H PRN PO 12/12/17 19:45 01/11/18 19:44 12/16/17 15:02 50 MG
[2017-12-16] MEDS ORDERED: GLC500 PO (17:16)
[2017-12-16] MEDS ORDERED: WARF1TAB PO (17:16)
[2017-12-16] MEDS ORDERED: ACET-1047 PO (17:18)
--- NOTE | 2017-12-16 17:32 | Discharge Instructions ---
Discharge Instructions Date of Service Dec 16, 2017. Admission Reason for Admission: Dvt,Pnuemonia Discharge Discharge Diagnosis / Problem: DVT/PE, Diabetes Type 2, Hepatic Nodule, Thrombocytopenia Discharge Goals Goal(s): Decrease discomfort, Improve function, Improve disease control Activity Recommendations Activity Limitations: resume your previous activity (as tolerated) . Instructions / Follow-Up Instructions / Follow-Up Follow up with the primary care provider at [facility] [place] Hold tonight dose of Coumadin Check PT/INR tomorrow and very closely after that (INR goal between 1.6 to 2) Please dose Coumadin according to INR level tomorrow Check CBC to monitor platelet and hemoglobin Monitor closely for signs of bleeding Fall precaution Continue physical therapy Follow up imaging in 6 months to monitor the liver nodule Call vascular surgery dr. Fields about follow up appointment Newly diagnosed of diabetes Follow up a healthy diabetes diet and limited sugar intake Starting on metformin 500mg for the diabetes Check INR between 3 to 6 months Counseling on tobacco cessation Medication Instructions: Coumadin * Warfarin is a medicine prescribed to prevent blood clots * Warfarin will thin your blood and help prevent new clots * Take your medications exactly as directed * Never skip a dose. Never take a double dose. If you miss a dose, take it as soon as you remember * It is important for your doctor to monitor your prothrombin time (PT). This is a lab test * Keep your appointment for lab tests Risk of Adverse Drug Reactions and Interactions: * Warfarin increases your risk of bleeding * The food you eat and other medications you take can affect how Warfarin works in your body * Ask your doctor about daily aspirin therapy * It is very important to talk with your doctor about all of the other medicines , antibiotics, vitamins or herbal products that you are taking * All of your medication must be approved by your doctor, including new medicines, as well as medicines you have taken before you started taking Warfarin * Avoid NSAIDs (Such as motrin, aleve, naproxen, ibuprofen, advil, celebrex, meloxicam, ...) due to increase risks of bleeding Diet: * In order for Warfarin to work properly, it is important to keep your intake of Vitamin K as consistent as possible * You should avoid any sudden change in Vitamin K intake * Report any significant changes in your diet or weight to your doctor Call your Primary Care doctor if you experience any of the following: * Swelling or Pain in your leg * Sudden, continuous pain deep in a muscle * Pain that worsens when you are active or when you stand still for a long time * Chest Pain * Sudden Shortness of Breath * Rapid or pounding heart beat * Fainting * Dizziness * Cough with blood or bloody sputum * Sweating more than normal * Bruises * Heavy or uncontrolled bleeding * Blood in your urine, stool or vomit * Black or tarry stools Caring for Your Self at Home: * Avoid sitting, standing or lying down for long periods without moving your legs and feet * When traveling by car, stop to get out and move around at least once every 3 hours * On long airplane, train or bus rides, get up and move around when possible * If you can't get up, wiggle your toes and tighten your calves to keep your blood moving Follow Up: It is important for you to keep your follow up appointments with your medical provider. Current Hospital Diet Patient's current hospital diet: Diabetes Type 2 Diet Discharge Diet Recommended Diet: Diabetes Type 2 Diet Procedures Procedures Performed: Insertion of Vena Cava Filter, Right Femoral Approach, Fluroscopy for Positioning, Moderate Sedation From 1055 to 1108. Pending Studies Studies pending at discharge: no Laboratory Results Hemoglobin A1c Test 12/11/17 07:50 Range/Units Estimated Average Glucose 163 mg/dl Hemoglobin A1c 7.3 H 4.5-5.6 % Lipid Panel Test 10/21/17 04:41 Range/Units Triglycerides Level 57 0-150 mg/dl Cholesterol Level 109 0-200 mg/dl HDL Cholesterol 41 mg/dl Cholesterol/HDL Ratio 2.7 LDL Cholesterol, Calculated 57 mg/dl Medical Emergencies . Who to Call and When: Medical Emergencies: If at any time you feel your situation is an emergency, please call 911 immediately. . Non-Emergent Contact Non-Emergency issues call your: Primary Care Provider Call Non-Emergent contact if: you have any medication questions . . "Provider Documentation" section prepared by Bonnie Lynn. .
[2017-12-16 17:42] VITALS: BP 151/73; PULSE 93; TEMP 36.6; O2SAT 98
--- NOTE | 2017-12-19 08:25 | Discharge Summary ---
Discharge Summary Date of Service Dec 19, 2017. Discharge Summary Admission Date: Dec 10, 2017 at 01:22 Discharge Date: Dec 16, 2017 Principal Diagnosis: B/L DVT and PE Secondary Diagnoses/Problems: Hepatic Nodule Hx CVA Afib Thrombocytopenia Compensated cardiomyopathy DM type 2 HTN GERD Procedures: IVC filter Placement (CHEST FOR PE) ANGIO WITH CT DOSE: 647.33 mGy.cm HISTORY: Chest pain dyspnea TECHNIQUE: Multiaxial CT images of the chest were performed following the intravenous administration of contrast to evaluate the pulmonary arteries. Maximal intensity projection images were also obtained. A dose lowering technique was utilized adhering to the principles of ALARA. COMPARISON STUDY: None. FINDINGS: Several filling defects primarily involving the right lower lobe pulmonary arterial vasculature. At least one small defect involving the distal left lower lobe pulmonary vasculature. Moderate generalized interstitial prominence throughout both hemithoraces. No well-defined focal infiltrate. IMPRESSION: 1. Study is positive for right and to a lesser extent left basilar pulmonary emboli. 2. No evidence for a central or saddle embolus. 3. Mild emphysematous and peribronchial prominence throughout both lungs. The above report was generated using voice recognition software. It may contain grammatical, syntax or spelling errors. Electronically signed by: James Villareal M.D. 12/10/2017 6:46 AM Dictated Date/Time: 12/10/2017 6:43 AM MRI LIVER COMBO CLINICAL HISTORY: Hepatic cirrhosis. 16 mm hepatic mass. Abnormal prior CT scan. TECHNIQUE: Imaging was performed prior to and following IV contrast injection. Imaging was acquired before and after the administration of 10 cc of intravenous Eovist. COMPARISON STUDY: CT scan dated 10/25/2017 FINDINGS: The examination is not optimal due to motion artifact. There are multiple gallstones. No left kidney is visualized. There is a subcentimeter right renal cyst. The spleen is the upper limits of normal in size. Multiple varices are visualized. There is no ductal dilatation. No pancreatic masses are visualized. There is a 17 mm T2 bright mass within the right hepatic lobe. This lesion reveals no definitive enhancement. The lesion does however demonstrate increased signal intensity on diffusion-weighted images. While this may be secondary to T2 shine through, one cannot with certainty exclude a solid mass. A 6 month follow-up examination is recommended. There is evidence for hepatic cirrhosis with capsular scarring. IMPRESSION: 1. Technically limited study secondary to motion artifact 2. Nonvisualization of the left kidney 3. Hepatic cirrhosis and varices 4. Cholelithiasis 5. 17 mm T2 bright mass within the right hepatic lobe. This demonstrates increased signal on diffusion-weighted images. There is no definitive enhancement on the postgadolinium studies which are limited due to motion artifact. A cyst with T2 shine through is favored over a solid lesion. A 6 month follow-up examination is recommended. Electronically signed by: Sesar Wang M.D. 12/11/2017 7:25 AM Dictated Date/Time: 12/11/2017 7:[address] HEAD WITHOUT CONTRAST (CT) CLINICAL HISTORY: Acute change in mental status COMPARISON STUDY: 11/20/2017 TECHNIQUE: Axial CT of the brain is performed from the vertex to the skull base. IV contrast was not administered for this examination. A dose lowering technique was utilized adhering to the principles of ALARA. CT DOSE: 1228.53 mGy.cm FINDINGS: No intra or extra-axial mass lesions are visualized. There is no CT evidence of acute cortical infarction. There is no evidence of midline shift. There is no acute hemorrhage. No calvarial fractures are visualized. There are patchy white matter hypodensities likely on a small vessel basis. There is no evidence of pathologic ventricular dilatation. There is a maxillary sinus air-fluid level. Clinical correlation in regards to sinusitis is recommended. IMPRESSION: 1. Maxillary sinus air-fluid level 2. Otherwise no acute intracranial findings Electronically signed by: Sesar Wang M.D. 12/10/2017 6:28 AM Dictated Date/Time: 12/10/2017 6:27 AM [~ rep ct add3]] BILATERAL LOWER EXTREMITY VENOUS DOPPLER HISTORY: Acute pain and swelling of the bilateral lower extremities leg swelling COMPARISON STUDY: CTA chest of same day FINDINGS: RIGHT: Occlusive or nearly occlusive thrombus of the right gastrocnemius vein. Otherwise, there normal compressibility, flow, and augmentation within the right lower extremity deep venous system. LEFT: Nearly occlusive thrombus of the left femoral, popliteal, posterior tibial, peroneal and gastrocnemius veins. Common femoral vein is patent. Subcutaneous edema of the left lower extremity. IMPRESSION: 1. Occlusive or nearly occlusive deep venous thrombosis of the right gastrocnemius vein. 2. Extensive deep venous thrombosis of the left lower extremity extends from the femoral vein into the lower leg. Electronically signed by: Avi Chin M.D. 12/10/2017 6:33 AM Dictated Date/Time: 12/10/2017 6:29 AM [~ rep ct add3]] CHEST ONE VIEW PORTABLE CLINICAL HISTORY: confused mental status change COMPARISON STUDY: 11/25/2017 FINDINGS: Minimal interstitial infiltrate left base. Lungs otherwise are clear. Diaphragms are smooth. IMPRESSION: Minimal interstitial infiltrate left base. The above report was generated using voice recognition software. It may contain grammatical, syntax or spelling errors. Electronically signed by: James Villareal M.D. 12/09/2017 10:22 PM Dictated Date/Time: 12/09/2017 10:22 PM Consultations: Vascular surgery Cardio Hematology Medication Reconciliation New Medications: Metformin HCl (Metformin HCl) 500 Mg Tab 500 MG PO BID for 30 Days, #60 TAB Warfarin Sodium (Coumadin) 1 Mg Tab 1 MG PO DAILY for 30 Days, #30 TAB Acetaminophen (Mapap) 325 Mg Tab 650 MG PO BID PRN for Pain or Fever for 5 Days, #20 TAB Continued Medications: Acetaminophen (Tylenol) 500 Mg Tab 500 MG PO TID, TAB Aspirin (Aspirin Chewable) 81 Mg Chew 81 MG PO DAILY Cyanocobalamin (Vitamin B-12) 1,000 Mcg Tab 1000 MCG PO DAILY Digoxin (Digoxin) 0.125 Mg Tab 0.125 MG PO DAILY AT 1900 Diltiazem Hcl Ext Rel (Tiazac) 120 Mg Capcr 120 MG PO QAM, CAP Fluticasone Prop/Salmeterol (Advair Diskus 100-50 Mcg/Dose) 14 Puff/1 Inhaler Aerp 1 PUFF INH BID Folic Acid (Folvite) 1 Mg Tab 1 MG PO DAILY Furosemide (Lasix) 40 Mg Tab 40 MG PO QAM, TAB Lactulose (Encephalopathy) (Lactulose) 10 Gm/15 Ml Ju 30 GM PO BID GOAL 3 BM'S PER DAY. Levalbuterol Tartrate (Levalbuterol Tartrate Hfa) 45 Mcg/Act Aer 2 PUFF INH TID PRN for Shortness of Breath Lisinopril (Zestril) 5 Mg Tab 5 MG PO QAM, TAB Metoprolol Tartrate (Lopressor) (Lopressor) 100 Mg Tab 100 MG PO BID, TAB Nitroglycerin (Nitrostat) 0.4 Mg Tab 0.4 MG UT PRN Ranitidine (Zantac) 150 Mg Tab 150 MG PO BID Tamsulosin Hcl (Flomax) 0.4 Mg Cap 0.4 MG PO DAILY Terbinafine Hcl (Topical) (Lamisil At) 1 % Cre 1 APPLN TOP BID Admission Information HPI (per Admitting provider): CHIEF COMPLAINT: Generalized weakness, generalized pain, and lower extremity pain. HISTORY OF PRESENT ILLNESS: This is a 77-year-old male with past medical history significant for congestive heart failure, systolic and diastolic, COPD, GERD, atrial fibrillation, history of CVA, history of hypertension, history of thrombocytopenia, incarcerated umbilical hernia,alcoholic liver cirrhosis, was brought in because of generalized weakness and generalized pain, more in lower extremity. Patient says since the last couple of weeks, has been mostly on the wheelchair, is not able to ambulate much due to lower extremity pain, not even able to to stand, has some abdominal discomfort, mild nausea. Denies any chest pain, denies shortness of breath, no cough. Denies fever or chills. His appetite is okay. No headache, no blurred visions, no runny nose, no sore throat, no difficulty swallowing, no earache. Currently resting comfortably and hemodynamically stable. In unofficial report of the lower extremity Dopplers, he has DVT. Physical Exam (per Admitting): PHYSICAL EXAMINATION: GENERAL: Patient is of moderate build, not in distress. VITAL SIGNS: Temperature 36.9, pulse 96, respiratory rate 18, blood pressure 140/103, oxygen saturation 100% on room air. HEENT: No pallor, no icterus. Pupils equal, round, reactive. NECK: No JVD, no neck masses, no carotid bruits. CARDIOVASCULAR SYSTEM: S1 and S2 heard, regular rate and rhythm. No murmur, no gallop. RESPIRATORY SYSTEM: Normal AP diameter. No accessory muscle use. Bilateral wheezing present. Mild bibasilar crackles. GASTROINTESTINAL: Abdomen is soft, bowel sounds present, nontender, no distention. CENTRAL NERVOUS SYSTEM: Cranial nerves II through XII grossly intact. Nonfocal. EXTREMITIES: Lower extremity edema present. Left lower extremity is erythematous and somewhat warm Hospital Course B/L DVT and PE Doppler of venous lower extremities showed occlusive or nearly occlusive deep venous thrombosis of the right gastrocnemius vein Extensive deep venous thrombosis of the left lower extremity extends from the femoral vein into the lower leg. CTA chest showed S positive for right and to a lesser extent left basilar pulmonary emboli. Has been on heparin drip High risks for bleeding complications due to hx of thrombocytopenia, esophageal varices S/p IVC filter placed on 12/[address] Fields On heparin drip Hematology on board Recommended Coumadin and to keep INR between 1.6 to 2 due to risks of bleeding from esophageal varices and thrombocytopenia hypercoag work up- proteins C+S and antithrombin 3 were all low but these can be affected with acute VTE episode, so recommend that there are rechecked in 3 months also repeat cardiolipins with lupus anticoagulant panel in 3 months Hod today Coumadin dose INR 3.3 today Monitor INR closely D/C heparin drip Will need to be on correction anticoagulant if able to tolerate without any complications Check INR in am and will dose Coumadin base on INR level Hepatic Nodule MRI of the liver showed 17 mm T2 mass within the right hepatic lobe is likely a cyst over a solid lesion Will need 6 month follow-up study AFP normal Thrombocytopenia Platelet slightly increased to 114 Monitor CBC Hx cerebrovascular accident no focal neurological deficits On aspirin History of atrial fibrillation Rate controlled with the Lopressor, digoxin, Cardizem Cardiology on board Compensated cardiomyopathy No signs of fluid overload Hold lasix, lisinopril and lopressor for now Stable ECHO on 10/29 * Normal LV chamber size with mild concentric LVH. * Mildly reduced LV systolic function with mild global hypokinesis, EF 45-50%. * No segmental left ventricular wall motion abnormalities are noted. * Grade III diastolic dysfunction. * Aortic valve sclerosis mild, without significant aortic valvular stenosis. * There is moderate to severe mitral regurgitation. The mitral regurgitant jet is posteriorly directed, which is consistent with anterior leaflet pathology. * Severe biatrial enlargement. * Intact interatrial septum. DM type 2 Recent Hba1c 7.3 Newly diagnosed Pharmacy on board for glycemic management Will start metformin 500mg on discharge Monitor BS Hypertension. BP in the low side Will hold Lisinopril/Lasix and Metoprol for now Continue monitor BP closely Gastroesophageal reflux disease on Zantac. Deep venous thrombosis prophylaxis, IV heparin. CODE STATUS FULL CODE DISPOSITION Check INR tomorrow (INR goal between 1.6 to 2) Monitor closely for signs of bleeding Total time spent on discharge = 40 minutes This includes examination of the patient, discharge planning, medication reconciliation, and communication with other providers. Discharge Instructions Discharge Instructions Date of Service Dec 16, 2017. Admission Reason for Admission: Dvt,Pnuemonia Discharge Discharge Diagnosis / Problem: DVT/PE, Diabetes Type 2, Hepatic Nodule, Thrombocytopenia Discharge Goals Goal(s): Decrease discomfort, Improve function, Improve disease control Activity Recommendations Activity Limitations: resume your previous activity (as tolerated) . Instructions / Follow-Up Instructions / Follow-Up Follow up with the primary care provider at [facility] [place] Hold tonight dose of Coumadin Check PT/INR tomorrow and very closely after that (INR goal between 1.6 to 2) Please dose Coumadin according to INR level tomorrow Check CBC to monitor platelet and hemoglobin Monitor closely for signs of bleeding Fall precaution Continue physical therapy Follow up imaging in 6 months to monitor the liver nodule Call vascular surgery dr. Fields about follow up appointment Newly diagnosed of diabetes Follow up a healthy diabetes diet and limited sugar intake Starting on metformin 500mg for the diabetes Check INR between 3 to 6 months Counseling on tobacco cessation Medication Instructions: Coumadin * Warfarin is a medicine prescribed to prevent blood clots * Warfarin will thin your blood and help prevent new clots * Take your medications exactly as directed * Never skip a dose. Never take a double dose. If you miss a dose, take it as soon as you remember * It is important for your doctor to monitor your prothrombin time (PT). This is a lab test * Keep your appointment for lab tests Risk of Adverse Drug Reactions and Interactions: * Warfarin increases your risk of bleeding * The food you eat and other medications you take can affect how Warfarin works in your body * Ask your doctor about daily aspirin therapy * It is very important to talk with your doctor about all of the other medicines , antibiotics, vitamins or herbal products that you are taking * All of your medication must be approved by your doctor, including new medicines, as well as medicines you have taken before you started taking Warfarin * Avoid NSAIDs (Such as motrin, aleve, naproxen, ibuprofen, advil, celebrex, meloxicam, ...) due to increase risks of bleeding Diet: * In order for Warfarin to work properly, it is important to keep your intake of Vitamin K as consistent as possible * You should avoid any sudden change in Vitamin K intake * Report any significant changes in your diet or weight to your doctor Call your Primary Care doctor if you experience any of the following: * Swelling or Pain in your leg * Sudden, continuous pain deep in a muscle * Pain that worsens when you are active or when you stand still for a long time * Chest Pain * Sudden Shortness of Breath * Rapid or pounding heart beat * Fainting * Dizziness * Cough with blood or bloody sputum * Sweating more than normal * Bruises * Heavy or uncontrolled bleeding * Blood in your urine, stool or vomit * Black or tarry stools Caring for Your Self at Home: * Avoid sitting, standing or lying down for long periods without moving your legs and feet * When traveling by car, stop to get out and move around at least once every 3 hours * On long airplane, train or bus rides, get up and move around when possible * If you can't get up, wiggle your toes and tighten your calves to keep your blood moving Follow Up: It is important for you to keep your follow up appointments with your medical provider. Current Hospital Diet Patient's current hospital diet: Diabetes Type 2 Diet Discharge Diet Recommended Diet: Diabetes Type 2 Diet Procedures Procedures Performed: Insertion of Vena Cava Filter, Right Femoral Approach, Fluroscopy for Positioning, Moderate Sedation From 1055 to 1108. Pending Studies Studies pending at discharge: no Laboratory Results Hemoglobin A1c Test 12/11/17 07:50 Range/Units Estimated Average Glucose 163 mg/dl Hemoglobin A1c 7.3 H 4.5-5.6 % Lipid Panel Test 10/21/17 04:41 Range/Units Triglycerides Level 57 0-150 mg/dl Cholesterol Level 109 0-200 mg/dl HDL Cholesterol 41 mg/dl Cholesterol/HDL Ratio 2.7 LDL Cholesterol, Calculated 57 mg/dl Medical Emergencies . Who to Call and When: Medical Emergencies: If at any time you feel your situation is an emergency, please call 911 immediately. . Non-Emergent Contact Non-Emergency issues call your: Primary Care Provider Call Non-Emergent contact if: you have any medication questions . . Additional Copies To [place] [facility]
== END 2017-12-16 19:08 | disposition home or self-care (01) | DRG 166 ==
LOC: C.EDB 21:46 → C.2T 12-10 01:22 → EDBEDREQ 12-10 01:25 → ENRESERV 12-10 01:40 → C.MS2W 12-14 20:36
PROVIDERS: ADMIT Internal Medicine; ATTEND Internal Medicine
PROC: 06H03DZ Insertion of Intraluminal Device into Inferior Vena Cava, Percutaneous Approach (ICD-10-PCS; principal; 2017-12-12 10:30)
DX: I26.99 Other pulmonary embolism without acute cor pulmonale (principal); J18.9 Pneumonia, unspecified organism; I50.43 Acute on chronic combined systolic (congestive) and diastolic (congestive) heart failure; I82.491 Acute embolism and thrombosis of other specified deep vein of right lower extremity; J44.1 Chronic obstructive pulmonary disease with (acute) exacerbation; I42.9 Cardiomyopathy, unspecified; I82.412 Acute embolism and thrombosis of left femoral vein; I82.432 Acute embolism and thrombosis of left popliteal vein; I82.492 Acute embolism and thrombosis of other specified deep vein of left lower extremity; Z86.718 Personal history of other venous thrombosis and embolism; K21.9 Gastro-esophageal reflux disease without esophagitis; Z86.73 Personal history of transient ischemic attack (TIA), and cerebral infarction without residual deficits; I10 Essential (primary) hypertension; Z79.82 Long term (current) use of aspirin; I48.2 Chronic atrial fibrillation; K70.30 Alcoholic cirrhosis of liver without ascites; R73.9 Hyperglycemia, unspecified; I86.4 Gastric varices; D69.59 Other secondary thrombocytopenia

== ENCOUNTER → 2017-12-18 | Outpatient (CLI) | payer OTHER ==
[~2017-12-18] MED LIST changes: +ACET-1047 PO; +ACET-1256 PO; +FURO40TA3 PO; +GLC500 PO; +LACT10SO30 PO; -LACT10SO53 PO; +LISI-729 PO; -LISI-730 PO; -LSX40 PO; +METO100T14 PO; -PRD10 PO; -TPRSR50 PO; +WARF1TAB PO
== END ==
LOC: C.LABSPEC 15:09
PROVIDERS: ATTEND Nurse Practitioner
DX: R41.82 Altered mental status, unspecified (principal)

== ENCOUNTER 2018-06-11 22:24 | Inpatient (IN) ==
[2018-06-11] MEDS ORDERED: SODIUM CHLORIDE 0.9% 1000ML 1,000 ML IV ONE (22:52)
[2018-06-11] MEDS ORDERED: VANCOMYCIN CONSULT ACTIVE PRN (22:52)
[2018-06-11] MEDS ORDERED: VANCOMYCIN HCL 1,750 MG in SODIUM CHLORIDE 0.9% 500 ML IV ONE (22:52)
[2018-06-11] MEDS ORDERED: DIGOXIN 0.125 MG TAB PO ONE (22:52)
[2018-06-11] MEDS ORDERED: SODIUM CHLORIDE 0.9% 1000ML 1,000 ML IV SCH (23:00)
[2018-06-12] MEDS: LEVOFLOXACIN/D5W 750 MG/150 ML BAG IV SCH (01:52)
[2018-06-12] MEDS ORDERED: ACETAMINOPHEN 325 MG TAB ONE (01:54)
[2018-06-12] MEDS ORDERED: ALUMINUM/MAGNESIUM SUSP 30 ML UDC PO PRN (02:48)
[2018-06-12] MEDS ORDERED: LACTULOSE SYRUP 30 GM/45 ML UDP PO PRN (02:48)
[2018-06-12] MEDS ORDERED: VANCOMYCIN CONSULT ACTIVE PRN (02:48)
[2018-06-12] MEDS ORDERED: NITROGLYCERIN SL 0.4 MG/TAB TAB SL PRN ×2 (02:48)
[2018-06-12] MEDS ORDERED: ONDANSETRON INJ 2 MG/ML 2 ML VIAL IV PRN (02:48)
[2018-06-12] MEDS ORDERED: XOPENEX/ATROVENT 1.25mg/0.5MG NEB COMBO NEB SCH (02:48)
[2018-06-12] MEDS ORDERED: ACETAMINOPHEN 325 MG TAB PO PRN (02:48)
[2018-06-12] MEDS ORDERED: POLYETHYLENE (MIRALAX) 17 GM PACK PO PRN (02:48)
[2018-06-12] MEDS ORDERED: LEVALBUTEROL TARTRATE 15 GM HFA.AER.AD INH PRN (02:48)
[2018-06-12] MEDS ORDERED: ACETAMINOPHEN 500 MG TAB PO PRN (02:48)
--- NOTE | 2018-06-12 02:57 | Emergency Department Note ---
Entered by Bud Iniguez acting as a scribe for Amando Camacho MD History of Present Illness General Chief complaint: Fever Stated complaint: FEVER,HEART PALPITATIONS,SWOLLEN LEGS,AFIB Time Seen by Provider: 06/11/18 22:42 Source: patient History of Present Illness Onset (ago): day(s) (few) Location: head Pain Consistency: + intermittent Maximum Pain Intensity: 8 Quality: + other (fever) Associated symptoms: + denies other symptoms (sore throat, congestion, vomiting ) and + other (wrist pain, swelling in legs); no cough The patient is a 78 y/o white male w/ PMHx of HTN, COPD, GERD, CVA, DVT, A-fib who presents to the ED w/ CC of intermittent fever beginning a few days ago. The patient currently rates his discomfort an 8/10 in severity. The patient states he also has swelling in his legs. He reports he fell this morning and hurt his right wrist as well. The patient notes he has not felt well because of his fever and has not taken his a-fib medication in 2 days. He states he currently smokes and has been incarcerated for 38 years. The patient denies a cough, sore throat, congestion, vomiting, receiving a flu shot, and recent surgeries. Home Medications Home Medications Medication Instructions Recorded Confirmed Type acetaminophen 500 mg PO TID PRN 06/12/18 06/12/18 History aspirin 81 mg PO DAILY 06/12/18 06/12/18 History celecoxib [Celebrex] 100 mg PO TID PRN 06/12/18 06/12/18 History cyanocobalamin (vitamin B-12) 1,000 mcg PO DAILY 06/12/18 06/12/18 History [Vitamin B-12] digoxin 0.125 mg PO DAILY 06/12/18 06/12/18 History diltiazem HCl [DILT-XR] 120 mg PO DAILY 06/12/18 06/12/18 History fluticasone-salmeterol [Advair 1 puff INHALATION Q12H 06/12/18 06/12/18 History Diskus] folic acid 1 mg PO DAILY 06/12/18 06/12/18 History furosemide [Lasix] 80 mg PO DAILY 06/12/18 06/12/18 History lactulose 45 ml PO BID PRN 06/12/18 06/12/18 History levalbuterol tartrate [Xopenex HFA] 2 inh INHALATION TID PRN 06/12/18 06/12/18 History lisinopril 5 mg PO DAILY 06/12/18 06/12/18 History metformin 500 mg PO HS 06/12/18 06/12/18 History nitroglycerin [Nitrostat] 0.4 mg SUBLINGUAL UD PRN 06/12/18 06/12/18 History ranitidine HCl 300 mg PO DAILY 06/12/18 06/12/18 History tamsulosin 0.4 mg PO DAILY 06/12/18 06/12/18 History terbinafine HCl 1 applic TOPICAL DAILY 06/12/18 06/12/18 History warfarin [Coumadin] 3 mg PO DAILY 06/12/18 06/12/18 History Allergies Allergy/AdvReac Type Severity Reaction Status Date / Time doxazosin Allergy Intermediate RASH Verified 06/12/18 00:29 prazosin Allergy Unknown [place] Verified 06/12/18 00:29 LIST Past Med/Surg History Medical History HTN (hypertension) (Chronic) COPD (chronic obstructive pulmonary disease) (Chronic) Thrombocytopenia (Chronic) GERD (gastroesophageal reflux disease) (Chronic) H/O: CVA (cerebrovascular accident) (Resolved) Atrial fibrillation with RVR (Acute) DVT (deep venous thrombosis) Surgical History No pertinent past surgical history Family History Other Family history non-contributory Social History Feels Safe at Home: Yes Smoking Status: Current every day smoker Review of Systems See HPI for pertinent positives & negatives. and A total of 10 systems reviewed and were otherwise negative Physical Exam Vital Signs Vital Signs - 24 hr 06/11/18 22:27 06/11/18 23:57 06/12/18 01:05 Temperature 39 C H Temperature Source Oral Sepsis Recent Fever Within 48 Hours No Sepsis New/Unexplained Change in Mental Status No Sepsis Action Taken by Nursing No Action Required Pulse Rate 123 H 115 H Pulse Rate [Right Finger] 115 H 115 H Pulse Rhythm Regular Pulse Rhythm [Right Finger] Regular Pulse Strength Normal Pulse Strength [Right Finger] Normal Respiratory Rate 20 22 22 Respiratory Effort / Characteristics Non-Labored Spontaneous Non-Labored Respiratory Depth Normal Normal Respiratory Pattern Regular Blood Pressure 151/81 H Blood Pressure [Right Arm] 153/105 H 162/82 H Blood Pressure Mean 104 Blood Pressure Mean [Right Arm] 121 108 Blood Pressure Position Sitting Blood Pressure Position [Right Arm] Lying Pulse Oximetry 96 96 97 Oxygen Delivery Method Room Air Room Air 06/12/18 02:19 Temperature Temperature Source Sepsis Recent Fever Within 48 Hours Sepsis New/Unexplained Change in Mental Status Sepsis Action Taken by Nursing Pulse Rate 114 H Pulse Rate [Right Finger] Pulse Rhythm Pulse Rhythm [Right Finger] Pulse Strength Pulse Strength [Right Finger] Respiratory Rate 22 Respiratory Effort / Characteristics Respiratory Depth Respiratory Pattern Blood Pressure 165/84 H Blood Pressure [Right Arm] Blood Pressure Mean Blood Pressure Mean [Right Arm] Blood Pressure Position Blood Pressure Position [Right Arm] Pulse Oximetry 97 Oxygen Delivery Method GENERAL: Mildly ill appearing, well nourished, NAD, non-toxic. EYE EXAM: Normal conjunctiva. PERRL, no anisocoria and EOM's grossly intact w/o pain. OROPHARYNX: No exudate, posterior pharynx is clear, no tonsillar/uvular deviation or swelling. NECK: Supple, no nuchal rigidity, no adenopathy, non-tender. No signs of meningismus. LUNGS: Mild diffuse wheezing throughout. Normal chest wall mechanics. HEART: Tachycardic and irregular, no MRG. ABDOMEN: Abdomen soft, non-tender, normo-active bowel sounds, no masses, no rebound or guarding. BACK: No CVA TTP. SKIN: No bruising or jaundice. UPPER EXTREMITIES: Upper extremities are grossly normal with the exception of the right wrist. Right sided wrist pain with no obvious deformity. Left upper extremity is in handcuff. LOWER EXTREMITIES: Right leg has redness and mild swelling from the villa to the ankle. NVI distally to RLE. NEURO EXAM: Cranial nerves II-XII grossly intact, normal speech, moves all 4 extremities on command w/o issue. Course 2236: Past medical records reviewed. The patient was evaluated in room B12B, and a complete history and physical examination were performed. 0000: I reevaluated the patient and discussed the findings with him. He verbalized agreement to a hospitalist evaluation and the treatment plan. The patient will be evaluated for further management and care. 0003: I reviewed the patient's case with Dr. [facility]. He will evaluate the patient for further management. Administered Medications Levofloxacin/Dextrose (Levaquin/D5w) 750 mg in 150 mls @ 100 mls/hr IV Q24H STEPHANE Stop: 06/19/18 01:17 Last Admin: 06/12/18 01:52 Dose: 100 mls/hr Discontinued Medications Acetaminophen (Tylenol) Confirm Administered Dose 650 mg .ROUTE .STK-MED ONE Stop: 06/12/18 01:55 Last Admin: 06/12/18 01:55 Dose: 650 mg Digoxin (Lanoxin) 0.125 mg PO NOW ONE Stop: 06/11/18 22:53 Last Admin: 06/11/18 23:19 Dose: 0.125 mg Sodium Chloride (Nss 1000ml) 1,000 mls @ 999 mls/hr IV .Q1H1M ONE Stop: 06/11/18 23:52 Last Infusion: 06/12/18 00:22 Dose: 0 mls/hr Admin: 06/11/18 23:19 Dose: 999 mls/hr Sodium Chloride (Nss 1000ml) 1,000 mls @ 999 mls/hr IV .Q1H1M STEPHANE Stop: 06/12/18 00:00 Last Infusion: 06/12/18 01:39 Dose: 0 mls/hr Admin: 06/11/18 23:19 Dose: 999 mls/hr Vancomycin HCl 1,750 mg/ (Sodium Chloride) 535 mls @ 200 mls/hr IV NOW ONE Stop: 06/12/18 01:32 Last Infusion: 06/12/18 02:24 Dose: 0 mls/hr Admin: 06/11/18 23:19 Dose: 200 mls/hr Medical Decision Making Medical Records Attestation: I reviewed the patient's medical records. Home Medications Current Medication List: was personally reviewed by me Laboratory Data Attestation: I reviewed the patient's lab results. Result diagrams: 06/11/18 22:48 06/11/18 22:48 Lab Results 06/11/18 06/11/18 06/11/18 Range/Units 22:48 22:48 22:48 WBC 17.30 H (4.8-10.8) K/uL RBC 3.67 L (4.7-6.1) M/uL Hgb 12.2 L (14.0-18.0) g/dL Hct 35.9 L (42-52) % MCV 97.8 (80-100) fL MCH 33.2 (25-34) pg MCHC 34.0 (32-36) g/dL RDW Std Deviation 58.2 H (36.4-46.3) fL RDW Coeff of Charo 16.3 H (11.5-14.5) % Plt Count 87 L (130-400) K/uL MPV 10.8 H (7.4-10.4) fL Immature Gran % (Auto) 0.3 % Neut % (Auto) 91.4 % Lymph % (Auto) 4.2 % Hernando % (Auto) 3.9 % Eos % (Auto) 0.0 % Baso % (Auto) 0.2 % Immature Gran # (Auto) 0.06 H (0.00-0.02) K/uL Neut # (Auto) 15.81 H (1.4-6.5) K/uL Lymph # (Auto) 0.72 L (1.2-3.4) K/uL Hernando # (Auto) 0.68 H (0.11-0.59) K/uL Eos # (Auto) 0.00 (0-0.5) K/uL Baso # (Auto) 0.03 (0-0.2) K/uL Platelet Estimate Decreased (Normal) PT 16.7 H (9.0-12.0) Seconds INR 1.7 H (0.9-1.1) APTT 35.6 H (21.0-31.0) Seconds PTT Ratio 1.4 VBG pH (7.36-7.41) VBG pCO2 (38-50) mmHg VBG pO2 mmHg VBG HCO3 mmol/L VBG O2 Saturation % VBG Base Excess mEq/L Barometric Pressure mm/Hg Sodium 135 L (136-145) mmol/L Potassium 3.6 (3.5-5.1) mmol/L Chloride 102 (98-107) mmol/L Carbon Dioxide 23 (21-32) mmol/L Anion Gap 9.0 (3-11) BUN 14 (7-18) mg/dl Creatinine 0.97 (0.6-1.4) mg/dl Est Cr Clr Drug Dosing 71.1 ml/min Est GFR ( Amer) 87.5 Est GFR (Non-Af Amer) 75.5 BUN/Creatinine Ratio 14.2 (10-20) Glucose 128 H (70-99) mg/dl POC Lactic Acid Emir (0.90-1.70) mmol/L Lactate (0.4-2.0) mmol/L Calcium 9.3 (8.5-10.1) mg/dl Total Bilirubin 1.9 H (0.2-1) mg/dl AST 22 (15-37) U/L ALT 15 (12-78) U/L Alkaline Phosphatase 110 (45-117) U/L Total Protein 6.5 (6.4-8.2) gm/dl Albumin 2.8 L (3.4-5.0) gm/dl Globulin 3.7 (2.5-4.0) gm/dl Albumin/Globulin Ratio 0.8 L (0.9-2) Procalcitonin (0-0.5) ng/ml Digoxin (0.8-2.0) ng/ml Influenza Type A Ag (Neg) Influenza Type B Ag (Neg) 06/11/18 06/11/18 06/11/18 Range/Units 22:48 22:48 22:48 WBC (4.8-10.8) K/uL RBC (4.7-6.1) M/uL Hgb (14.0-18.0) g/dL Hct (42-52) % MCV (80-100) fL MCH (25-34) pg MCHC (32-36) g/dL RDW Std Deviation (36.4-46.3) fL RDW Coeff of Charo (11.5-14.5) % Plt Count (130-400) K/uL MPV (7.4-10.4) fL Immature Gran % (Auto) % Neut % (Auto) % Lymph % (Auto) % Hernando % (Auto) % Eos % (Auto) % Baso % (Auto) % Immature Gran # (Auto) (0.00-0.02) K/uL Neut # (Auto) (1.4-6.5) K/uL Lymph # (Auto) (1.2-3.4) K/uL Hernando # (Auto) (0.11-0.59) K/uL Eos # (Auto) (0-0.5) K/uL Baso # (Auto) (0-0.2) K/uL Platelet Estimate (Normal) PT (9.0-12.0) Seconds INR (0.9-1.1) APTT (21.0-31.0) Seconds PTT Ratio VBG pH (7.36-7.41) VBG pCO2 (38-50) mmHg VBG pO2 mmHg VBG HCO3 mmol/L VBG O2 Saturation % VBG Base Excess mEq/L Barometric Pressure mm/Hg Sodium (136-145) mmol/L Potassium (3.5-5.1) mmol/L Chloride (98-107) mmol/L Carbon Dioxide (21-32) mmol/L Anion Gap (3-11) BUN (7-18) mg/dl Creatinine (0.6-1.4) mg/dl Est Cr Clr Drug Dosing ml/min Est GFR ( Amer) Est GFR (Non-Af Amer) BUN/Creatinine Ratio (10-20) Glucose (70-99) mg/dl POC Lactic Acid Emir (0.90-1.70) mmol/L Lactate 2.7 H* (0.4-2.0) mmol/L Calcium (8.5-10.1) mg/dl Total Bilirubin (0.2-1) mg/dl AST (15-37) U/L ALT (12-78) U/L Alkaline Phosphatase (45-117) U/L Total Protein (6.4-8.2) gm/dl Albumin (3.4-5.0) gm/dl Globulin (2.5-4.0) gm/dl Albumin/Globulin Ratio (0.9-2) Procalcitonin 1.26 H (0-0.5) ng/ml Digoxin 0.4 L (0.8-2.0) ng/ml Influenza Type A Ag (Neg) Influenza Type B Ag (Neg) 06/11/18 06/11/18 06/11/18 Range/Units 22:56 23:00 23:08 WBC (4.8-10.8) K/uL RBC (4.7-6.1) M/uL Hgb (14.0-18.0) g/dL Hct (42-52) % MCV (80-100) fL MCH (25-34) pg MCHC (32-36) g/dL RDW Std Deviation (36.4-46.3) fL RDW Coeff of Charo (11.5-14.5) % Plt Count (130-400) K/uL MPV (7.4-10.4) fL Immature Gran % (Auto) % Neut % (Auto) % Lymph % (Auto) % Hernando % (Auto) % Eos % (Auto) % Baso % (Auto) % Immature Gran # (Auto) (0.00-0.02) K/uL Neut # (Auto) (1.4-6.5) K/uL Lymph # (Auto) (1.2-3.4) K/uL Hernando # (Auto) (0.11-0.59) K/uL Eos # (Auto) (0-0.5) K/uL Baso # (Auto) (0-0.2) K/uL Platelet Estimate (Normal) PT (9.0-12.0) Seconds INR (0.9-1.1) APTT (21.0-31.0) Seconds PTT Ratio VBG pH 7.48 H (7.36-7.41) VBG pCO2 31 L (38-50) mmHg VBG pO2 53 mmHg VBG HCO3 23 mmol/L VBG O2 Saturation 86.3 % VBG Base Excess 0.1 mEq/L Barometric Pressure 729.8 mm/Hg Sodium (136-145) mmol/L Potassium (3.5-5.1) mmol/L Chloride (98-107) mmol/L Carbon Dioxide (21-32) mmol/L Anion Gap (3-11) BUN (7-18) mg/dl Creatinine (0.6-1.4) mg/dl Est Cr Clr Drug Dosing ml/min Est GFR ( Amer) Est GFR (Non-Af Amer) BUN/Creatinine Ratio (10-20) Glucose (70-99) mg/dl POC Lactic Acid Emir 2.31 H (0.90-1.70) mmol/L Lactate (0.4-2.0) mmol/L Calcium (8.5-10.1) mg/dl Total Bilirubin (0.2-1) mg/dl AST (15-37) U/L ALT (12-78) U/L Alkaline Phosphatase (45-117) U/L Total Protein (6.4-8.2) gm/dl Albumin (3.4-5.0) gm/dl Globulin (2.5-4.0) gm/dl Albumin/Globulin Ratio (0.9-2) Procalcitonin (0-0.5) ng/ml Digoxin (0.8-2.0) ng/ml Influenza Type A Ag Neg for Influ A (Neg) Influenza Type B Ag Neg for Influ B (Neg) Imaging Data Attestation: I personally reviewed and interpreted this imaging study as follows : My Impression: Chest xr 1v: No evidence of focal consolidation, mild vascular congestion without pulmonary edema, no pneumothorax XR wrist RT min 3v routine: no evidence of fracture or dislocation. Blood Pressure Blood Pressure Findings: Elevated blood pressure Blood Pressure Disposition: further management by hospitalist EVANS Narrative The patient is a 78 y/o white male w/ PMHx of HTN, COPD, GERD, CVA, DVT, A-fib who presents to the ED w/ CC of intermittent fever beginning a few days ago. Differential diagnosis: Etiologies such as viral syndrome, otitis, pharyngitis, pneumonia, influenza, meningitis, urinary tract infection, sepsis, bacteremia, as well as others were entertained. Patient was seen and evaluated the bedside. The patient was referred from [facility] as the patient was having fever and associated elevated heart rate. The patient had not been taking his maintenance medication including his rate control medication or his digoxin. Patient did have blood work completed along with VBG lactate and blood cultures. Patient also did have a chest film completed. Patient's chest x-ray was read by me and did show some vascular congestion but without overt pulmonary edema. The patient did not have evidence of pneumothorax and when compared to priors does not appear to have a consolidation. Patient's flu is negative. On exam of the patient the patient was noted to have diffuse right lower extremity cellulitis from the knee to the ankle. Patient is neurovascularly intact distally to the right lower extremity. The patient was started empirically on vancomycin. The patient was given his p.o. digoxin. Patient did have a white count of 17,000. Patient has normal kidney function. The patient's lactate was 2.7. The patient was given IV fluids. Given the patient's sepsis associated A. fib with RVR and cellulitis and the fact that he is a prisoner I believe he is better suited in the hospital for IV antibiotics and further monitoring and treatment. Also of note the patient is complaining of some right-sided wrist pain. I did review the wrist films which did not show any overt fracture dislocation. I did speak with the on-call hospitalist who agreed to further evaluate and treat the patient. The patient was admitted to the medicine service. Impression & Plan Cellulitis, Atrial fibrillation with RVR, Sepsis, Sprain of right wrist Critical Care Time I have personally spent greater than 45 minutes of critical care time in direct management of this patient. This includes bedside care, interpretation of diagnostic studies, and testing, discussion with consultants, patient, and family members, and other require inpatient management activities. This 45 minutes is in excess of all separately billable procedures. Critical Care Time: Yes Total Critical Care Time: 45 Discharge Plan Visit Data *Final* Discharge Date/Time: 06/12/18 02:19 Chief Complaint: Fever Stated Complaint: FEVER,HEART PALPITATIONS,SWOLLEN LEGS,AFIB ED Provider: Amando Camacho Discharge Problem: Cellulitis, Atrial fibrillation with RVR, Sepsis, Sprain of right wrist Patient Disposition: Admitted As Inpatient Discharge Instructions Interventions: ED Discharge Assessment Last Done: 06/12/18 02:19 Sepsis Evaluation Sepsis screening result: No Definite Risk Current stage of sepsis: sepsis Focused Exam Vital Signs Temp Pulse Pulse Resp BP BP Pulse Ox 06/12/18 02:19 114 H 22 165/84 H 97 06/12/18 01:05 115 H 22 162/82 H 97 06/11/18 23:57 115 H 115 H 22 153/105 H 96 06/11/18 22:27 39 C H 123 H 20 151/81 H 96 The scribe's documentation has been prepared under my direction and personally reviewed by me in its entirety. I confirm that the note above accurately reflects all work, treatment, procedures, and medical decision making performed by me.
[2018-06-12] MEDS: SODIUM CHLORIDE 0.9% 1000ML 1,000 ML IV SCH ×2 (03:52→12:09)
[2018-06-12] MEDS ORDERED: LEVOFLOXACIN CONSULT ACTIVE PRN (03:53)
[2018-06-12] MEDS ORDERED: CARBOHYDRATES FOR HYPOGLYCEMIA PO PRN (04:49)
[2018-06-12] MEDS ORDERED: GLUCOSE 10 TABS/TUBE PO PRN (04:49)
[2018-06-12] MEDS ORDERED: GLUCOSE 40% GEL 15 GM TUBE PO PRN (04:49)
[2018-06-12] MEDS ORDERED: GLUCAGON FOR INJ 1 MG VIAL IM PRN (04:49)
[2018-06-12] MEDS ORDERED: DEXTROSE 50% 50 ML SYRINGE IV PRN (04:49)
[2018-06-12] MEDS: methylPREDNISolone 40 MG in SYRINGE 0 ML IV SCH ×3 (05:02→23:49)
[2018-06-12] MEDS: TRAMADOL HCL 50 MG TABLET PO PRN ×3 (05:10→21:01)
[2018-06-12] MEDS ORDERED: INFLUENZA VACCINE HIGH DOSE 65+ 0.5 ML SYR IM ONE ×2 (06:30→07:45)
[2018-06-12] MEDS ORDERED: INFLUENZA ADMINISTRATION CHARGE ONE ×2 (06:30→07:45)
[2018-06-12] MEDS ORDERED: PNEUMOCOCCAL POLYSACCHARIDES 25 MCG/0.5 ML VIAL/SYR IM ONE (06:45)
[2018-06-12] MEDS ORDERED: PNEUMOCOCCAL ADMINISTRATION CHARGE ONE (06:45)
--- NOTE | 2018-06-12 07:09 | XRay Report ---
XR wrist RT min 3V routine CLINICAL HISTORY: 78 years-old Male presenting with wrist pain. TECHNIQUE: Frontal, bilateral oblique, and lateral views of the right wrist were obtained. COMPARISON: None. FINDINGS: Evaluation mildly degraded by suboptimal positioning. Osteopenia suspected. No acute fracture or malalignment. 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 Mild diffuse soft tissue swelling at the distal forearm and wrist are in IMPRESSION: 1. Suboptimal positioning does degrade sensitivity of this examination. Allowing for this, no acute osseous injury. 2. Possible underlying osteopenia. Electronically signed by: Garth Mcrae M.D. 06/12/2018 7:07 AM
--- NOTE | 2018-06-12 07:15 | XRay Report ---
XR chest 1V portable CLINICAL HISTORY: 78 years-old Male presenting with Sepsis. TECHNIQUE: Portable upright AP view of the chest was obtained. COMPARISON: 12/09/2017 and CTA chest from 12/10/2017. FINDINGS: Atherosclerosis of the aortic arch. Cardiac silhouette mildly enlarged. Mild pulmonary vessel promine nce. Prominent lung markings. No focal opacity. No pleural effusion or pneumothorax. Osseous structur es normal. Upper abdomen normal. IMPRESSION: 1. Mild cardiomegaly with volume overload. No natali pulmonary edema. No focal infiltrate to suggest pneumonia. Electronically signed by: Garth Mcrae M.D. 06/12/2018 7:14 AM
[2018-06-12] MEDS ORDERED: POTASSIUM CHLORIDE 10 MEQ TABCR PO STA (08:05)
--- NOTE | 2018-06-12 08:17 | History and Physical Report ---
DATE OF ADMISSION: 06/12/2018 CHIEF COMPLAINT: Fever, shortness of breath and cellulitis. HISTORY OF PRESENT ILLNESS: This is a 78-year-old male coming from skilled nursing with past medical history significant for hypertension, COPD, tobacco abuse, a fib,,, GERD, history of CVA, history of DVTs, history of pneumonia, presents with not feeling well since last 3 days, having fever, short of breath and dry cough, feeling chills and today also noticed swelling and erythematous right leg, he had history of cellulitis in that leg before, so he came to the hospital, feeling chilly and requiring blankets, and some mild chest discomfort, complaint of some shortness of breath, no headache, no blurred vision. Appetite is okay. Swallowing okay. No nausea, no vomiting, no abdominal pain. Normal bowel and bladder movements. Resting comfortably and hemodynamically stable.Fell on right wrist and complains of pain. ALLERGIES: DOXAZOSIN AND PRAZOSIN. PAST MEDICAL HISTORY: As mentioned above. PAST SURGICAL HISTORY: Unknown. MEDICATIONS: The patient is on Tylenol 500 mg p.o. t.i.d. p.r.n., aspirin 81 mg p.o. daily, Celebrex 100 mg p.o. t.i.d. p.r.n., vitamin B12 1000 mg p.o. daily, digoxin 0.125 mg p.o. daily, Diltiazem XR 120 mg p.o. daily, Advair Diskus one inhalation b.i.d., folic acid 1 mg p.o. daily, Lasix 80 mg daily, lactulose 45 mL p.o. b.i.d. p.r.n., Xopenex 2 inhalations t.i.d. p.r.n., lisinopril 5 mg p.o. daily p.r.n., metformin 500 mg at bedtime, nitroglycerin 0.4 mg sublingual p.r.n., Zantac 300 mg p.o. daily, Flomax 0.4 mg daily, terbinafine application topical daily, warfarin 3 mg p.o. daily. FAMILY HISTORY: Noncontributory. SOCIAL HISTORY: Smokes 1 pack a day for several years, . REVIEW OF SYMPTOMS: As per HPI. Rest of review of systems negative. PHYSICAL EXAMINATION: GENERAL: The patient is of moderate built, not in acute distress. VITAL SIGNS: Temperature 39, pulse 115, respiratory rate 20, blood pressure 152/105, oxygenating 96% room air. HEENT: No pallor, no icterus. Pupils equal, round, reactive. NECK: No neck masses. CARDIOVASCULAR: S1, S2 heard. Tachycardia. No murmurs. RESPIRATORY SYSTEM: Normal AP diameter. No accessory muscles used. Bilateral rhonchi heard. No wheezing, no crackles. ABDOMEN: Soft, bowel sounds present. Nontender. No distention. CENTRAL NERVOUS SYSTEM: Cn 2-12 grossly intact. Nonfocal. EXTREMITIES: Right lower extremity is erythematous and warm to touch. Right wrist painful movement but no swelling or erythema seen. LABS: WBC 17.3, hemoglobin 12.2, hematocrit 35.9, platelets 87. PT 10.6, APTT 16.0, INR 1.7, . Sodium 139, potassium 3.6, chloride 102, bicarbonate 23, BUN 14, creatinine 0.90, serum glucose 128, lactate 2.7, calcium 9.3, total bilirubin 1.3, AST 22, ALT 50, alkaline phosphatase 110, total protein 65. Procalcitonin 1.2. Digoxin 0.4. Influenza A and B negative. Chest x-ray, no acute findings seen, right wrist x-ray unofficial report unremarkable. ASSESSMENT AND PLAN: This is a 78-year-old male with history of chronic obstructive pulmonary disease, atrial fibrillation, history of cerebrovascular accident, osteopenia, hypertension, gastroesophageal reflux disease, history of deep venous thrombosis, presents with fever, shortness of breath, cough, and right lower extremity cellulitis. 1. Shortness of breath, chronic obstructive pulmonary disease exacerbation, tobacco abuse, smokes 1 pack a day daily. Continue home inhalers. We will place him on Xopenex around the clock and p.r.n., IV Levaquin, IV steroids. Monitor the med/surg tele, monitor response. On chest x-ray, no obvious infiltrates. 2. Right lower extremity cellulitis. The patient says he had cellulitis in this leg before. He was started on IV vancomycin. We will continue vancomycin and add IV Levaquin as also having respiratory symptoms. Follow the blood cultures. Follow the response. We will also check lower extremity Doppler to rule out deep venous thrombosis as the patient has history of deep venous thrombosis in that leg before. 3. History of thrombocytopenia. We will follow the platelets. 4. Elevated lactic acid possible early sepsis from his tachycardia, fever, cellulitis and pneumonia, getting management with IV antibiotics and IV fluids at 125 mL per hour. We will have a repeat lactic acid level. 5. Right wrist pain. The wrist x-rays are unremarkable. 6. History of atrial fibrillation, on digoxin, diltiazem and Coumadin. Follow the PT and INR . INR is subtherapeutic today at 1.6. If still low will increase the Coumadin dose. 7. Constipation, lactulose p.r.n. 8. Hypertension on lisinopril, Mirapex and diltiazem. We will monitor the blood pressure. 9. Gastroesophageal reflux disease on Zantac.. 10. Diabetes on metformin once daily which will be held. Place on insulin sliding scale. Follow hemoglobin A1c level. 11. History of cerebrovascular accident, currently stable on aspirin and Coumadin. 12. Deep venous thrombosis prophylaxis on Coumadin. FollowI NR. Level 1 full code. 13. Disposition: Admit to medical/surgical tele. Patient will go back to skilled nursing when stable. MTDD
[2018-06-12] MEDS ORDERED: MAGNESIUM SULFATE / D5W 1 GM/100 ML BAG IV ONE (08:30)
[2018-06-12] MEDS: INSULIN ASPART 100 UNITS/ML 3 ML PEN SC SCH ×4 (08:37→21:35)
[2018-06-12] MEDS: LISINOPRIL 5 MG TAB PO SCH (08:37)
[2018-06-12] MEDS: TAMSULOSIN HCL 0.4 MG CAP PO SCH (08:38)
[2018-06-12] MEDS: CYANOCOBALAMIN 500 MCG TABLET (VITAMIN B-12) PO SCH (08:38)
[2018-06-12] MEDS: FOLIC ACID 1 MG TAB PO SCH (08:38)
[2018-06-12] MEDS: ASPIRIN 81 MG ECTAB PO SCH (08:39)
[2018-06-12] MEDS: FLUTICASONE/SALMETEROL 100/50 (ADVAIR) 14 PUFF/1 INHALER INH SCH ×2 (08:39→21:33)
[2018-06-12] MEDS: FUROSEMIDE 80 MG TAB PO SCH (08:41)
[2018-06-12] MEDS ORDERED: ASPIRIN CHEW 324 MG PO SCH (09:00)
[2018-06-12] MEDS: IPRATROPIUM BROMIDE NEB SOLN 0.02% 2.5 ML VIAL INH SCH ×3 (09:03→19:42)
[2018-06-12] MEDS: LEVALBUTEROL 1.25MG/0.5ML NEB INH SCH ×3 (09:03→19:42)
--- NOTE | 2018-06-12 09:24 | Ultrasound Report ---
US venous doppler LE RT CLINICAL HISTORY: 78 years-old Male presenting with dvt?. TECHNIQUE: Real-time grayscale and color and spectral Doppler ultrasound imaging of the veins of the right lower extremity was performed. Compression and augmentation were also utilized. COMPARISON: 03/25/2018. FINDINGS: RIGHT: Common femoral vein: Patent. Greater saphenous vein (superficial): Patent. Deep femoral vein: Patent. Femoral vein: Patent. Popliteal vein: Thin linear echogenic defect in the popliteal vein similar to prior. Calf veins: Patent. Other: Morphologically benign though enlarged 3.2 cm lymph node in the right inguinal region. Subcuta neous edema with dilated lymphatics noted in the lower leg. IMPRESSION: 1. No evidence of acute deep venous thrombosis. 2. Chronic changes in the right popliteal vein most suggestive of prior DVT. 3. Lower leg edema. Electronically signed by: Garth Mcrae M.D. 06/12/2018 9:22 AM
[2018-06-12] MEDS: VANCOMYCIN HCL 1,500 MG in SODIUM CHLORIDE 0.9% 500 ML IV SCH ×2 (10:01→23:48)
--- NOTE | 2018-06-12 10:04 | Pharmacy Report ---
Pharmacy Abx Initial Consult - Date of Service June 12, 2018 - Pharmacy Dosing Scope Date of Consult: 06-12 Consultation requested by: Dr. Clarke Pharmacy is consulted to initiate Vancomycin/ Levaquin IV/PO dosing therapy, order appropriate labs and adjust drug dose/frequency. - Subjective The patient is a 78 year old M admitted on 06/12/18 01:17. - Objective Height: 6 ft Weight: 92.2 kg Vital Signs (Past 12hrs): Lab Results (24hrs): Laboratory Tests (24 Hours) 06/12/18 06/12/18 06/11/18 05:34 05:34 22:48 WBC 12.88 H Neut # (Auto) 11.12 H Creatinine 0.89 Est Cr Clr Drug Dosing 77.5 Procalcitonin 1.26 H 06/11/18 06/11/18 22:48 22:48 WBC 17.30 H Neut # (Auto) 15.81 H Creatinine 0.97 Est Cr Clr Drug Dosing 71.1 Procalcitonin Micro Results: 06/11/18 22:58 Blood Culture - Pending Blood 06/11/18 22:48 Blood Culture - Pending Blood - Assessment & Plan Assessment/Plan: Patient started on vancomycin and levaquin for possible pneumonia/cellulitis. [facility], presenting with fever, shortness of breath, and lower extremity celllulitis. Blood cultures x 2 are pending. Nasal swab pending. Negative influenza. Vancomycin: * 1750 mg (~20 mg/kg) x 1 given in the ER * Started on vancomycin 1500 mg (~16 mg/kg) iv q 14 hrs to achieve estimated trough ~15-20 mcg/ml (goal for pneumonia) * Estimated kinetics: t1/2~10 hrs, ke~0.06 hr-1, CrCl ~77 ml/min * Will plan to obtain trough in next 1-2 days if to be continued Levaquin: * 750 mg iv q 24 hrs - appropriate for CrCl/no change Pharmacy will continue to follow and will adjust dose/frequency as necessary. Thank you.
[2018-06-12] MEDS: TERBINAFINE CR 30 GM TUBE EXT SCH (12:52)
[2018-06-12] MEDS ORDERED: WARFARIN SOD 3 MG TAB PO SCH (16:00)
[2018-06-12] MEDS: DIGOXIN 0.125 MG TAB PO SCH (18:00)
--- NOTE | 2018-06-12 18:02 | Hospitalist Progress Note ---
Date of Service June 12, 2018 Assessment & Plan (1) Cellulitis: Patient is a 78 yr male with multiple co morbidities presents with fever , shortness of breath, cough, and right lower extremity Cellulitis. Right Leg Cellulitis Possible sepsis --Venous Doppler :No evidence of acute deep venous thrombosis. Chronic changes in the right popliteal vein most suggestive of prior DVT. Lower leg edema. --Lactate levels normalized --Received IV fluids --Continue IV Vanco and Levaquin Blood Cultures: pending Mild COPD Exacerbation H/O Tobacco use disorder CXR:Mild cardiomegaly with volume overload. No natali pulmonary edema. No focal infiltrate to suggest pneumonia. 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 DM II: A1C pending Hold PO meds ISS while hospitalized H/O CVA: On aspirin and Coumadin DVT Px: on Coumadin Heparin SQ until INR is therapeutic Disposition: Plan to DC back to custodial when stable Subjective Patient is seen and examined at bedside Complains of right leg redness/pain and right wrist pain Has chronic cough Palpitations resolved Denies chest pain Guards at bedside No other comaplints Physical Exam 2 Vital Signs (Past 24 Hours): Last Vital Signs Temp 36.8 C 06/12/18 15:00 Pulse 58 L 06/12/18 15:00 Resp 18 06/12/18 15:00 BP 130/78 06/12/18 15:00 Pulse Ox 91 06/12/18 15:00 Physical Exam: Physical Exam: Vitals signs as noted above General Appearance:Moderately built and nourished, no apparent distress Head: normocephalic, Atraumatic Eyes: normal inspection, EOMI Neck: supple, Trachea midline Respiratory/Chest: Decreased breath sounds, + Rhonchi Cardiovascular: S1, S2, No murmur, +Tachycardia Abdomen/GI:Soft, Non tender, Bowel sounds present Extremities/Musculoskelatal:normal inspection, 1+ B/L LE edema, R wrist tender, R Leg erythema Neurologic/Psych:AAOX3, grossly no focal neurological deficits Results & Data Laboratory Results Short CBC 06/11/18 06/12/18 Range/Units 22:48 05:34 WBC 17.30 H 12.88 H (4.8-10.8) K/uL Hgb 12.2 L 10.7 L (14.0-18.0) g/dL Hct 35.9 L 32.5 L (42-52) % Plt Count 87 L 70 L (130-400) K/uL BMP 06/11/18 06/12/18 22:48 05:34 Sodium 135 L 135 L Potassium 3.6 3.4 L Chloride 102 105 Carbon Dioxide 23 26 BUN 14 14 Creatinine 0.97 0.89 Glucose 128 H 115 H Calcium 9.3 8.7 Cardiac Enzymes 06/12/18 06/12/18 Range/Units 05:34 10:54 Troponin I 0.035 0.029 (0-0.045) ng/ml Liver Function 06/11/18 Range/Units 22:48 Total Bilirubin 1.9 H (0.2-1) mg/dl AST 22 (15-37) U/L ALT 15 (12-78) U/L Alkaline Phosphatase 110 (45-117) U/L Albumin 2.8 L (3.4-5.0) gm/dl _ (1) Cellulitis Laterality: right Site of cellulitis: extremity Site of cellulitis of extremity: lower extremity Site of cellulitis of trunk: Qualified Code(s): L03.115 - Cellulitis of right lower limb
--- NOTE | 2018-06-12 19:48 | Ultrasound Report ---
US extremity nonvascular CLINICAL HISTORY: Right Wrist pain. Edema. COMPARISON STUDY: No previous studies for comparison. FINDINGS: Findings consistent with mild soft tissue edema dorsal to the wrist. No evidence for absces s or collection. IMPRESSION: Mild nonspecific soft tissue edema. No evidence for abscess or collection by ultrasound criteria. The above report was generated using voice recognition software. It may contain grammatical, syntax or spelling errors. Electronically signed by: James Villareal M.D. 06/12/2018 7:47 PM
[2018-06-12] MEDS: INSULIN GLARGINE SOLOSTAR 100 UNITS/ML 3 ML PEN SC SCH (21:36)
[2018-06-12] MEDS: HEPARIN SOD 5,000 UNIT/0.5 ML VIAL SQ SCH (21:37)
[2018-06-13] MEDS: LEVALBUTEROL 1.25MG/0.5ML NEB INH SCH ×4 (01:28→19:10)
[2018-06-13] MEDS: IPRATROPIUM BROMIDE NEB SOLN 0.02% 2.5 ML VIAL INH SCH ×4 (01:28→19:10)
[2018-06-13] MEDS: LEVOFLOXACIN/D5W 750 MG/150 ML BAG IV SCH (01:43)
[2018-06-13] MEDS: TRAMADOL HCL 50 MG TABLET PO PRN ×4 (07:15→20:52)
[2018-06-13] MEDS: FLUTICASONE/SALMETEROL 100/50 (ADVAIR) 14 PUFF/1 INHALER INH SCH ×2 (08:00→20:40)
[2018-06-13] MEDS: CYANOCOBALAMIN 500 MCG TABLET (VITAMIN B-12) PO SCH (08:01)
[2018-06-13] MEDS: TAMSULOSIN HCL 0.4 MG CAP PO SCH (08:01)
[2018-06-13] MEDS: FOLIC ACID 1 MG TAB PO SCH (08:01)
[2018-06-13] MEDS: HEPARIN SOD 5,000 UNIT/0.5 ML VIAL SQ SCH ×2 (08:01→20:40)
[2018-06-13] MEDS: ASPIRIN 81 MG ECTAB PO SCH (08:02)
[2018-06-13] MEDS: LISINOPRIL 5 MG TAB PO SCH (08:02)
[2018-06-13] MEDS: FUROSEMIDE 80 MG TAB PO SCH (08:02)
[2018-06-13] MEDS: INSULIN GLARGINE SOLOSTAR 100 UNITS/ML 3 ML PEN SC SCH ×2 (08:03→20:41)
[2018-06-13] MEDS: TERBINAFINE CR 30 GM TUBE EXT SCH (08:04)
[2018-06-13] MEDS: INSULIN ASPART 100 UNITS/ML 3 ML PEN SC SCH ×4 (08:06→20:42)
[2018-06-13] MEDS: methylPREDNISolone 40 MG in SYRINGE 0 ML IV SCH (11:26)
[2018-06-13] MEDS: METOPROLOL TARTRATE 1 MG/ML VIAL IV PRN (11:30)
[2018-06-13] MEDS: VANCOMYCIN HCL 1,500 MG in SODIUM CHLORIDE 0.9% 500 ML IV SCH (13:36)
--- NOTE | 2018-06-13 14:22 | Hospitalist Progress Note ---
Date of Service June 13, 2018 Assessment & Plan (1) Cellulitis: Patient is a 78 yr male with multiple co morbidities presents with fever , shortness of breath, cough, and right lower extremity Cellulitis. Right Leg Cellulitis Possible sepsis --Venous Doppler :No evidence of acute deep venous thrombosis. Chronic changes in the right popliteal vein most suggestive of prior DVT. Lower leg edema. --Lactate levels normalized --MRSA screen negative --Blood Cultures: No growth to date --Received IV fluids --DC IV Vancomycin--received 2 days --Continue Levaquin Day # 2 Mild COPD Exacerbation H/O Tobacco use disorder CXR:Mild cardiomegaly with volume overload. No natali pulmonary edema. No focal infiltrate to suggest pneumonia. 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 No evidence for abscess or collection by ultrasound criteria. Will repeat X rays States wrist pain/swelling is worsening, has decreased ROM Consulted Orthopedics for Input Atrial fibrillation RVR H/O DVT Continue digoxin, diltiazem, Coumadin INR Sub therapeutic Heparin SQ until INR is therapeutic Monitor INR:1.5 today Increase coumadin to 5mg today Lopressor PRN Constipation: lactulose PRN Hypertension Continue home medications Monitor GERD: Zantac. DM II: A1C: 5.9 Hold PO meds ISS while hospitalized H/O CVA: On aspirin and Coumadin DVT Px: on Coumadin Heparin SQ until INR is therapeutic Disposition: Plan to DC back to skilled nursing when stable Subjective Patient is seen and examined at bedside Patient continues to have right wrist pain/swelling and decreased ROM Right leg redness/pain is improving Has chronic cough Denies chest pain, dyspnea, dizziness Guards at bedside No other complaints Physical Exam 2 Vital Signs (Past 24 Hours): Last Vital Signs Temp 36.4 C L 06/13/18 07:58 Pulse 125 H 06/13/18 11:30 Resp 17 06/13/18 07:58 BP 121/85 06/13/18 11:30 Pulse Ox 93 06/13/18 07:58 Physical Exam: Physical Exam: Vitals signs as noted above General Appearance:Moderately built and nourished, no apparent distress Head: normocephalic, Atraumatic Eyes: normal inspection, EOMI Neck: supple, Trachea midline Respiratory/Chest: Decreased breath sounds, + Rhonchi Cardiovascular: S1, S2, No murmur, +Tachycardia Abdomen/GI:Soft, Non tender, Bowel sounds present Extremities/Musculoskelatal:normal inspection, 1+ B/L LE edema, R wrist tender, R Leg erythema improving Neurologic/Psych:AAOX3, grossly no focal neurological deficits Results & Data Laboratory Results Short CBC 06/13/18 Range/Units 05:33 WBC 11.57 H (4.8-10.8) K/uL Hgb 10.8 L (14.0-18.0) g/dL Hct 32.3 L (42-52) % Plt Count 74 L (130-400) K/uL BMP 06/13/18 05:33 Sodium 135 L Potassium 3.9 Chloride 106 Carbon Dioxide 22 BUN 25 H D Creatinine 0.93 Glucose 213 H Calcium 9.4 _ (1) Cellulitis Laterality: right Site of cellulitis: extremity Site of cellulitis of extremity: lower extremity Site of cellulitis of trunk: Qualified Code(s): L03.115 - Cellulitis of right lower limb
--- NOTE | 2018-06-13 14:25 | XRay Report ---
XR wrist RT min 3V routine HISTORY: 78 years-old Male Wrist swelling/pain R/O fracture acute pain and swelling of the right wr ist COMPARISON: Right wrist radiographs 06/11/2018 TECHNIQUE: 4 views of the right wrist FINDINGS: Mild radiocarpal and first carpometacarpal osteoarthritis. Bones appear mildly demineralized. Chondro calcinosis of the TFCC. Bones appear mildly demineralized. No acute fracture, dislocation or opaque f oreign body. Mild dorsal soft tissue prominence. IMPRESSION: Mild dorsal soft tissue prominence without acute fracture or dislocation. The above report was generated using voice recognition software. It may contain grammatical, syntax o r spelling errors. Electronically signed by: Avi Chin M.D. 06/13/2018 2:24 PM
[2018-06-13] MEDS ORDERED: WARFARIN SOD 5 MG TAB PO SCH (16:00)
[2018-06-13] MEDS: DIGOXIN 0.125 MG TAB PO SCH (16:01)
[2018-06-14] MEDS: LEVOFLOXACIN/D5W 750 MG/150 ML BAG IV SCH (01:57)
[2018-06-14] MEDS: TRAMADOL HCL 50 MG TABLET PO PRN ×5 (02:03→21:41)
[2018-06-14] MEDS: LEVALBUTEROL 1.25MG/0.5ML NEB INH SCH ×3 (02:03→14:10)
[2018-06-14] MEDS: IPRATROPIUM BROMIDE NEB SOLN 0.02% 2.5 ML VIAL INH SCH ×3 (02:03→14:10)
[2018-06-14] MEDS ORDERED: methylPREDNISolone 40 MG in SYRINGE 0 ML IV SCH (09:00)
[2018-06-14] MEDS: TAMSULOSIN HCL 0.4 MG CAP PO SCH (09:32)
[2018-06-14] MEDS: CYANOCOBALAMIN 500 MCG TABLET (VITAMIN B-12) PO SCH (09:32)
[2018-06-14] MEDS: FLUTICASONE/SALMETEROL 100/50 (ADVAIR) 14 PUFF/1 INHALER INH SCH ×2 (09:32→21:41)
[2018-06-14] MEDS: FOLIC ACID 1 MG TAB PO SCH (09:33)
[2018-06-14] MEDS: ASPIRIN 81 MG ECTAB PO SCH (09:33)
[2018-06-14] MEDS: LISINOPRIL 5 MG TAB PO SCH (09:33)
[2018-06-14] MEDS: FUROSEMIDE 80 MG TAB PO SCH (09:33)
[2018-06-14] MEDS: INSULIN ASPART 100 UNITS/ML 3 ML PEN SC SCH ×4 (09:34→21:42)
[2018-06-14] MEDS: INSULIN GLARGINE SOLOSTAR 100 UNITS/ML 3 ML PEN SC SCH ×2 (09:36→21:41)
[2018-06-14] MEDS: TERBINAFINE CR 30 GM TUBE EXT SCH (09:36)
--- NOTE | 2018-06-14 11:36 | Hospitalist Progress Note ---
Date of Service June 14, 2018 Assessment & Plan (1) Cellulitis: Patient is a 78 yr male with multiple co morbidities presents with fever , shortness of breath, cough, and right lower extremity Cellulitis. Right Leg Cellulitis Possible sepsis --Venous Doppler :No evidence of acute deep venous thrombosis. Chronic changes in the right popliteal vein most suggestive of prior DVT. Lower leg edema. --Lactate levels normalized --MRSA screen negative --Blood Cultures: No growth to date --Received IV fluids --DC IV Vancomycin--received 2 days --Continue Levaquin Day # 3 Mild COPD Exacerbation H/O Tobacco use disorder CXR:Mild cardiomegaly with volume overload. No natali pulmonary edema. No focal infiltrate to suggest pneumonia. 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 No evidence for abscess or collection by ultrasound criteria. repeat X rays: Mild dorsal soft tissue prominence without acute fracture or dislocation. States wrist pain/swelling is improved today Consulted Orthopedics-wait for Input Atrial fibrillation RVR H/O DVT Continue digoxin, diltiazem, Coumadin INR Sub therapeutic--now therapeutic Monitor INR:2.5 today Give coumadin 3mg today Lopressor PRN Constipation: lactulose PRN Hypertension Continue home medications Monitor GERD: Zantac. DM II: A1C: 5.9 Hold PO meds ISS while hospitalized H/O CVA: On aspirin and Coumadin DVT Px: on Coumadin Disposition: Plan to [facility] Subjective Patient is seen and examined at bedside Right leg pain resolved. Right wrist pain is improved Has some petechial rash on right leg-- No pain or itching chronic cough Denies chest pain, dyspnea, dizziness Guards at bedside Physical Exam 2 Vital Signs (Past 24 Hours): Last Vital Signs Temp 36.8 C 06/14/18 04:50 Pulse 106 H 06/14/18 04:50 Resp 20 06/14/18 04:50 BP 119/74 06/14/18 04:50 Pulse Ox 93 06/14/18 04:50 Physical Exam: Physical Exam: Vitals signs as noted above General Appearance:Moderately built and nourished, no apparent distress Head: normocephalic, Atraumatic Eyes: normal inspection, EOMI Neck: supple, Trachea midline Respiratory/Chest: Decreased breath sounds, + scattered wheezes Cardiovascular: Irregularly Irregular, No murmur, +Tachycardia Abdomen/GI:Soft, Non tender, Bowel sounds present Extremities/Musculoskelatal:normal inspection, 1-2+ B/L LE edema, R wrist swelling better, R Leg erythema improving Neurologic/Psych:AAOX3, grossly no focal neurological deficits Results & Data Laboratory Results Short CBC 06/14/18 Range/Units 07:19 WBC 11.55 H (4.8-10.8) K/uL Hgb 10.4 L (14.0-18.0) g/dL Hct 30.9 L (42-52) % Plt Count 74 L (130-400) K/uL BMP 06/14/18 07:19 Sodium 136 Potassium 3.9 Chloride 106 Carbon Dioxide 23 BUN 34 H Creatinine 1.16 Glucose 139 H Calcium 9.1 Diagnostic Findings Wrist X ray: Mild dorsal soft tissue prominence without acute fracture or dislocation. _ (1) Cellulitis Laterality: right Site of cellulitis: extremity Site of cellulitis of extremity: lower extremity Site of cellulitis of trunk: Qualified Code(s): L03.115 - Cellulitis of right lower limb
[2018-06-14] MEDS ORDERED: IPRATROPIUM BROMIDE NEB SOLN 0.02% 2.5 ML VIAL INH PRN (15:54)
[2018-06-14] MEDS ORDERED: LEVALBUTEROL 1.25MG/0.5ML NEB INH PRN (15:54)
[2018-06-14] MEDS ORDERED: WARFARIN SOD 3 MG TAB PO SCH (16:00)
[2018-06-14] MEDS ORDERED: WARFARIN SOD 2 MG TAB PO SCH (16:00)
[2018-06-14] MEDS: DIGOXIN 0.125 MG TAB PO SCH (17:32)
[2018-06-14] MEDS: METOPROLOL TARTRATE 1 MG/ML VIAL IV PRN (22:56)
--- NOTE | 2018-06-15 02:07 | Consultation Report ---
DATE OF CONSULTATION: 06/14/2018 HISTORY OF PRESENT ILLNESS: This is a 78-year-old right hand dominant gentleman seen at request of Dr. Sen Potter regarding right wrist pain and swelling. 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 He then presented to [facility] for that complaint. However, he had also noted that he was using a cane for ambulation due to prior stroke last November and slipped with the cane and fell on his outstretched right upper extremity. He had pain and swelling of the right wrist which then he reported after presenting to [facility] for the other noted complaint. He had no bracing or splinting. He did have radiographs performed of the wrist. Orthopedics was then consulted. He had a history of cellulitis from the right leg previously and he had some chills and required blankets with some mild chest discomfort. He was seen and evaluated and admitted to the hospital with further consultations performed. PAST MEDICAL HISTORY: Hypertension, COPD, tobacco abuse, AFib, GERD, history of CVA in 2018, history of DVT, history of pneumonia. PAST SURGICAL HISTORY: Noncontributory. ALLERGIES: DOXAZOSIN AND PRAZOSIN. MEDICATIONS: Tylenol, aspirin, Celebrex, vitamin B12, digoxin 0.125 mg p.o. daily, diltiazem XR 120 mg p.o. daily, Advair Diskus, folate, Lasix 80 mg daily, lactulose 45 ____ p.o. b.i.d., Xopenex, lisinopril 5 mg p.o. daily, metformin 500 mg at bedtime, nitroglycerin 0.4 mg sublingual p.r.n., Zantac 300 mg daily, Flomax 0.4 mg daily, terbinafine topical daily, warfarin 3 mg p.o. daily. SOCIAL HISTORY: He is an inmate since 1979. He smokes cigarettes. Denies alcohol or drug use. PHYSICAL EXAMINATION: This is a 78-year-old male who is alert and oriented x3. Speech clear and fluent. Affect is appropriate. 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 Examination of the right upper extremity demonstrates skin is warm, dry and intact. Cap refill less than 2 seconds. Radial pulse is 2/4. Radial, ulnar and median nerve sensory and motor function are intact. He has radial pulses 2/4. No skin breakdown. Range of motion is symmetric to the opposite unaffected wrist. He has tenderness to palpation of the distal radius over the radial styloid and also at the distal radial ulnar joint. He also is tender to palpation at the ulnar styloid. No clicking, catching, or clunks are noted. He has some minor weakness of the right wrist with ict developer strength and resisted dorsiflexion due to pain. RADIOGRAPHIC DATA: Radiographs reviewed. He has no obvious fractures. Mild osteopenia. Normal alignment. No obvious lucencies and negative radiologist's report. IMPRESSION: 1. Right wrist sprain status post fall. 2. Right wrist contusion, improving with conservative management. RECOMMENDATIONS: Velcro splint recommended for the right upper extremity for activities. May remove for shower and while at rest. Follow up in orthopedic clinic in 2 weeks for reevaluation and repeat radiographs of the right wrist at that time. Thank you for the opportunity to consult in the care of this patient.
[2018-06-15] MEDS ORDERED: predniSONE 20 MG TAB PO SCH ×2 (09:00)
[2018-06-15] MEDS: CYANOCOBALAMIN 500 MCG TABLET (VITAMIN B-12) PO SCH (09:02)
[2018-06-15] MEDS: cephALEXin 500 MG CAP PO SCH ×3 (09:02→17:20)
[2018-06-15] MEDS: FLUTICASONE/SALMETEROL 100/50 (ADVAIR) 14 PUFF/1 INHALER INH SCH (09:02)
[2018-06-15] MEDS: TAMSULOSIN HCL 0.4 MG CAP PO SCH (09:02)
[2018-06-15] MEDS: LISINOPRIL 5 MG TAB PO SCH (09:03)
[2018-06-15] MEDS: ASPIRIN 81 MG ECTAB PO SCH (09:03)
[2018-06-15] MEDS: FUROSEMIDE 80 MG TAB PO SCH (09:03)
[2018-06-15] MEDS: FOLIC ACID 1 MG TAB PO SCH (09:03)
[2018-06-15] MEDS: TERBINAFINE CR 30 GM TUBE EXT SCH (09:03)
[2018-06-15] MEDS: INSULIN GLARGINE SOLOSTAR 100 UNITS/ML 3 ML PEN SC SCH (09:03)
[2018-06-15] MEDS: INSULIN ASPART 100 UNITS/ML 3 ML PEN SC SCH ×3 (09:04→17:22)
[2018-06-15] MEDS: TRAMADOL HCL 50 MG TABLET PO PRN (09:06)
--- NOTE | 2018-06-15 12:00 | Hospitalist Progress Note ---
Date of Service June 15, 2018 Assessment & Plan (1) Cellulitis: Patient is a 78 yr male with multiple co morbidities presents with fever , shortness of breath, cough, and right lower extremity Cellulitis. Right Leg Cellulitis Possible sepsis --Venous Doppler :No evidence of acute deep venous thrombosis. Chronic changes in the right popliteal vein most suggestive of prior DVT. Lower leg edema. --Lactate levels normalized --MRSA screen negative --Blood Cultures: No growth to date --Received IV fluids --DC IV Vancomycin--received 2 days --Continue Levaquin Day # 3>> Transitioned to PO Abx Mild COPD Exacerbation H/O Tobacco use disorder CXR:Mild cardiomegaly with volume overload. No natali pulmonary edema. No focal infiltrate to suggest pneumonia. 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 No evidence for abscess or collection by ultrasound criteria. repeat X rays: Mild dorsal soft tissue prominence without acute fracture or dislocation. States wrist pain/swelling is improved Appreciate Orthopedics Input Continue splint Needs FU with Ortho in 2 weeks upon discharge Atrial fibrillation RVR H/O DVT Continue digoxin, diltiazem, Coumadin INR Sub therapeutic--now therapeutic Monitor INR:4.2 today Hold coumadin today Lopressor PRN No bleeding issues Constipation: lactulose PRN Hypertension Continue home medications Monitor GERD: Zantac. DM II: A1C: 5.9 Hold PO meds ISS while hospitalized H/O CVA: On aspirin and Coumadin DVT Px: on Coumadin Disposition: Plan to [facility] back [facility] when stable Subjective Patient is seen and examined at bedside He is doing much better today Right leg pain resolved. Right wrist pain much improved Petechial rash on right leg-- much improved, No pain or itching chronic cough Denies chest pain, dyspnea, dizziness Guards at bedside No new complaints Physical Exam 2 Vital Signs (Past 24 Hours): Last Vital Signs Temp 36.9 C 06/15/18 07:30 Pulse 75 06/15/18 07:30 Resp 20 06/15/18 07:30 BP 152/75 H 06/15/18 07:30 Pulse Ox 94 06/15/18 07:30 Physical Exam: Physical Exam: Vitals signs as noted above General Appearance:Moderately built and nourished, no apparent distress Head: normocephalic, Atraumatic Eyes: normal inspection, EOMI Neck: supple, Trachea midline Respiratory/Chest: Decreased breath sounds, + scattered wheezes Cardiovascular: Irregularly Irregular, No murmur Abdomen/GI:Soft, Non tender, Bowel sounds present Extremities/Musculoskelatal:normal inspection, 1-2+ B/L LE edema, R wrist swelling/pain improved, R Leg erythema improved Neurologic/Psych:AAOX3, grossly no focal neurological deficits Results & Data Laboratory Results Short CBC 06/15/18 Range/Units 06:17 WBC 6.38 (4.8-10.8) K/uL Hgb 10.7 L (14.0-18.0) g/dL Hct 32.0 L (42-52) % Plt Count 83 L (130-400) K/uL BMP 06/15/18 06:17 Sodium 139 Potassium 4.0 Chloride 107 Carbon Dioxide 24 BUN 37 H Creatinine 1.11 Glucose 166 H Calcium 9.3 _ (1) Cellulitis Laterality: right Site of cellulitis: extremity Site of cellulitis of extremity: lower extremity Site of cellulitis of trunk: Qualified Code(s): L03.115 - Cellulitis of right lower limb
--- NOTE | 2018-06-15 12:15 | Discharge Summary ---
Date of Service June 15, 2018 Admission HPI Per Admitting Provider DICTATED BY: Roby Clarke MD DATE OF ADMISSION: 06/12/2018 CHIEF COMPLAINT: Fever, shortness of breath and cellulitis. HISTORY OF PRESENT ILLNESS: This is a 78-year-old male coming from long term with past medical history significant for hypertension, COPD, tobacco abuse, a fib,,, GERD, history of CVA, history of DVTs, history of pneumonia, presents with not feeling well since last 3 days, having fever, short of breath and dry cough, feeling chills and today also noticed swelling and erythematous right leg, he had history of cellulitis in that leg before, so he came to the hospital, feeling chilly and requiring blankets, and some mild chest discomfort, complaint of some shortness of breath, no headache, no blurred vision. Appetite is okay. Swallowing okay. No nausea, no vomiting, no abdominal pain. Normal bowel and bladder movements. Resting comfortably and hemodynamically stable.Fell on right wrist and complains of pain. Admission Exam Per Admitting Provider PHYSICAL EXAMINATION: GENERAL: The patient is of moderate built, not in acute distress. VITAL SIGNS: Temperature 39, pulse 115, respiratory rate 20, blood pressure 152/105, oxygenating 96% room air. HEENT: No pallor, no icterus. Pupils equal, round, reactive. NECK: No neck masses. CARDIOVASCULAR: S1, S2 heard. Tachycardia. No murmurs. RESPIRATORY SYSTEM: Normal AP diameter. No accessory muscles used. Bilateral rhonchi heard. No wheezing, no crackles. ABDOMEN: Soft, bowel sounds present. Nontender. No distention. CENTRAL NERVOUS SYSTEM: Cn 2-12 grossly intact. Nonfocal. EXTREMITIES: Right lower extremity is erythematous and warm to touch. Right wrist painful movement but no swelling or erythema seen. Principal Diagnosis Discharge Information Discharge Diagnosis Right Leg Cellulitis Mild COPD Exacerbation Right wrist Sprain Discharge Goals Decrease discomfort,Improve disease control, Improve function Discharge Activity Limitations Resume your previous activity Discharge Data Allergies Allergy/AdvReac Type Severity Reaction Status Date / Time doxazosin Allergy Intermediate RASH Verified 06/12/18 00:29 prazosin Allergy Unknown [place] Verified 06/12/18 00:29 LIST Consultations 06/12/18 00:40 ED Decision to Admit Stat 06/13/18 13:39 Consult Orthopedic Surgery Routine Procedures Performed CXR: Mild cardiomegaly with volume overload. No natali pulmonary edema. No focal infiltrate to suggest pneumonia. R Wrist X ray: Mild dorsal soft tissue prominence without acute fracture or dislocation. R UE USD: Mild nonspecific soft tissue edema. No evidence for abscess or collection by ultrasound criteria. Venous Doppler: 1. No evidence of acute deep venous thrombosis. 2. Chronic changes in the right popliteal vein most suggestive of prior DVT. 3. Lower leg edema. Ordered Studies 06/12/18 02:48 US venous doppler LE RT Routine 06/12/18 17:31 US extremity nonvascular Routine Hospital Course (1) Cellulitis: Patient is a 78 yr male with multiple co morbidities presents with fever , shortness of breath, cough, and right lower extremity Cellulitis. Right Leg Cellulitis Possible sepsis --Venous Doppler :No evidence of acute deep venous thrombosis. Chronic changes in the right popliteal vein most suggestive of prior DVT. Lower leg edema. --Lactate levels normalized --MRSA screen negative --Blood Cultures: No growth to date --Received IV fluids --DC IV Vancomycin--received 2 days --Continue Levaquin Day # 3>> Transitioned to PO Abx Mild COPD Exacerbation H/O Tobacco use disorder CXR:Mild cardiomegaly with volume overload. No natali pulmonary edema. No focal infiltrate to suggest pneumonia. Continue bronchodilators, levaquin, solu medrol--Transition to Prednsione Saturating well on room air Mediator to quit smoking--Patient currently not interested H/O cirrhosis: H/O thrombocytopenia likely 2/2 Cirrhosis No bleeding issues Right wrist Sprain: wrist x-rays no acute fractures Ext USD: Mild nonspecific soft tissue edema. No evidence for abscess or collection by ultrasound criteria. repeat X rays: Mild dorsal soft tissue prominence without acute fracture or dislocation. States wrist pain/swelling is improved Appreciate Orthopedics Input Continue splint Needs FU with Ortho in 2 weeks upon discharge Atrial fibrillation RVR H/O DVT Continue digoxin, diltiazem, Coumadin INR Sub therapeutic--now therapeutic Monitor INR:4.2 today Hold coumadin today Lopressor PRN No bleeding issues Constipation: lactulose PRN Hypertension Continue home medications Monitor GERD: Zantac. DM II: A1C: 5.9 Hold PO meds ISS while hospitalized H/O CVA: On aspirin and Coumadin DVT Px: on Coumadin Disposition: Plan to DC back to long term when stable Total Time Total Time Spent Total Time Spent (In Minutes): 38 minutes Total Time Includes: Examination of the Patient, Discharge Planning, Medication Reconciliation, Communication With Other Providers and Other Discharge Plan Discharge Items [facility]position: [facility] Reason For Visit: FEVER, SOB Discharge Diagnosis: Right Leg Cellulitis Mild COPD Exacerbation Right wrist Sprain Discharge Goals: Decrease discomfort, Improve disease control and Improve function Activity: Resume your previous activity Exercise/Sports: Gradually increase as tolerated Non-emergency contact: Primary Care Provider and Surgeon Call non-emergency contact if: you have any medication questions, your symptoms worsen, your pain is not controlled, your pain is worsening, your pain is unusual for you, your pain is concerning for you and you have a fever Diet: Carb Consistent or DM2 and Heart Healthy Addtl Provider Instructions: [facility] up with [facility] 1 week Follow up with Orthopedics in 2 weeks Complete the antibiotic and prednisone course as prescribed DO NOT TAKE COUMADIN TODAY (06/15/18) AND TOMORROW (06/16/18) YOUR PT/INR IS HIGH AT 4.2 TODAY GET BLOOD TEST (PT/INR) ON 06/17/18 AND FOLLOW UP WITH YOUR PHYSICIAN FOR ADJUSTMENT OF YOUR COUMADIN DOSE Continue using the Wrist splint as advised by Orthopedics Prednisone Taper Course: Start taking Prednisone 30mg daily for 3 days, then 20mg daily for 3 days, them 10,g daily for 3 days and STOP Seek immediate medical attention if your symptoms reoccur or worsen Prescriptions: New cephalexin 500 mg Capsule 500 mg PO QID 4 Days Qty: 16 RF: 0 prednisone 10 mg tablet 10 mg PO UD Qty: 18 RF: 0 Continue ranitidine HCl 300 mg Tablet 300 mg PO DAILY RF: 0 warfarin [Coumadin] 3 mg Tablet 3 mg PO DAILY RF: 0 furosemide [Lasix] 80 mg Tablet 80 mg PO DAILY RF: 0 terbinafine HCl 1 % Cream 1 applic TOPICAL DAILY RF: 0 acetaminophen 500 mg Tablet 500 mg PO TID PRN (Reason: Unknown) RF: 0 diltiazem HCl [DILT-XR] 120 mg Capsule,Ext.Rel 24h Degradable 120 mg PO DAILY RF: 0 aspirin 81 mg Tablet,Chewable 81 mg PO DAILY RF: 0 folic acid 1 mg Tablet 1 mg PO DAILY RF: 0 digoxin 125 mcg Tablet 0.125 mg PO DAILY RF: 0 celecoxib [Celebrex] 100 mg Capsule 100 mg PO TID PRN (Reason: arthritis) RF: 0 metformin 500 mg Tablet 500 mg PO HS RF: 0 tamsulosin 0.4 mg Capsule 0.4 mg PO DAILY RF: 0 lisinopril 5 mg Tablet 5 mg PO DAILY RF: 0 cyanocobalamin (vitamin B-12) [Vitamin B-12] 1,000 mcg Tablet 1,000 mcg PO DAILY RF: 0 nitroglycerin [Nitrostat] 0.4 mg Tablet, Sublingual 0.4 mg Sublingual UD PRN (Reason: Chest Pain) RF: 0 fluticasone-salmeterol [Advair Diskus] 100-50 mcg/dose Blister With Device 1 puff INHALATION Q12H RF: 0 lactulose 10 gram/15 mL Solution 45 ml PO BID PRN (Reason: for 3 bms per day) RF: 0 levalbuterol tartrate [Xopenex HFA] 45 mcg/actuation Hfa Aerosol Inhaler 2 inh INHALATION TID PRN (Reason: Unknown) RF: 0 Stand-Alone Forms: [facility] Discharge Orders: Discharge Order (Routine); Ordered 06/15/18 Ordered By: Sen Potter Admission Data Admit Date/Time: 06/12/18 01:17 Attending Provider: Sne Potter Admit Provider: Roby Clarke Primary Care Provider: [place] BOND Other Providers: Roby Clarke ; Rufino Umanzor Service: Telemetry Medical Other Pending Studies at Discharge: No
[2018-06-15] MEDS: DIGOXIN 0.125 MG TAB PO SCH (17:20)
== END 2018-06-15 19:23 | DRG 872 ==
LOC: ED 22:24 → 2N 06-12 01:17
DX: Z86.19 Personal history of other infectious and parasitic diseases; I48.92 Unspecified atrial flutter; Z51.81 Encounter for therapeutic drug level monitoring; E11.65 Type 2 diabetes mellitus with hyperglycemia; J44.1 Chronic obstructive pulmonary disease with (acute) exacerbation; D69.59 Other secondary thrombocytopenia; Z86.73 Personal history of transient ischemic attack (TIA), and cerebral infarction without residual deficits; K21.9 Gastro-esophageal reflux disease without esophagitis; F17.210 Nicotine dependence, cigarettes, uncomplicated; Z95.828 Presence of other vascular implants and grafts; I11.0 Hypertensive heart disease with heart failure; I50.42 Chronic combined systolic (congestive) and diastolic (congestive) heart failure; S60.211A Contusion of right wrist, initial encounter; B95.4 Other streptococcus as the cause of diseases classified elsewhere; S63.501A Unspecified sprain of right wrist, initial encounter; W01.0XXA Fall on same level from slipping, tripping and stumbling without subsequent striking against object, initial encounter; L03.115 Cellulitis of right lower limb; K59.00 Constipation, unspecified; Z86.711 Personal history of pulmonary embolism; Z79.84 Long term (current) use of oral hypoglycemic drugs; Z88.8 Allergy status to other drugs, medicaments and biological substances; K74.60 Unspecified cirrhosis of liver; Z86.2 Personal history of diseases of the blood and blood-forming organs and certain disorders involving the immune mechanism; R09.02 Hypoxemia; I48.91 Unspecified atrial fibrillation; Z79.899 Other long term (current) drug therapy; A41.9 Sepsis, unspecified organism; T49.0X5A Adverse effect of local antifungal, anti-infective and anti-inflammatory drugs, initial encounter; Z79.82 Long term (current) use of aspirin; Z86.718 Personal history of other venous thrombosis and embolism; Z87.01 Personal history of pneumonia (recurrent); Z79.01 Long term (current) use of anticoagulants

== ENCOUNTER 2018-07-14 09:21 | Inpatient (IN) ==
[2018-07-14] MEDS ORDERED: cefTRIAXone SODIUM 1,000 MG/50 ML BAG IV STA (09:37)
[2018-07-14] MEDS ORDERED: SODIUM CHLORIDE 0.9% 1000ML 2,000 ML IV ONE (09:37)
[2018-07-14] MEDS ORDERED: ACETAMINOPHEN 500 MG TAB PO STA (09:39)
[2018-07-14 10:21] LABS: Basophils # (auto) 0.01 K/uL (0-0.2); Basophils % (auto) 0.1 %; Eosinophils # (auto) 0.01 K/uL (0-0.5); Eosinophils % (auto) 0.1 %; Hematocrit (blood only) 30.6 % (42-52); Hemoglobin 10.1 g/dL (14.0-18.0); Immature Granulocytes # (auto) 0.05 K/uL (0.00-0.02); Immature Granulocytes % (auto) 0.3 %; Lymphocytes # (auto) 0.57 K/uL (1.2-3.4); Lymphocytes % (auto) 3.7 %; Mean Platelet Volume 9.9 fL (7.4-10.4); Monocytes # (auto) 1.03 K/uL (0.11-0.59); Monocytes % (auto) 6.7 %; Neutrophils # (auto) 13.59 K/uL (1.4-6.5); Neutrophils % (auto) 89.1 %; Platelet Count 102 K/uL (130-400); RDW Coefficient of Variation 17.2 % (11.5-14.5); RDW Standard Deviation 61.6 fL (36.4-46.3); Red Blood Count 3.09 M/uL (4.7-6.1); White Blood Count 15.26 K/uL (4.8-10.8)
[2018-07-14 10:28] LABS: iSTAT Creatinine 0.8 mg/dl (0.6-1.3); iSTAT Hemoglobin 10.2 g/dl (14.0-18.0); iSTAT Ionized Calcium 1.24 mmol/l (1.12-1.32); iSTAT Potassium 4.3 mEq/L (3.3-5.0)
--- NOTE | 2018-07-14 10:35 | XRay Report ---
XR chest 1V portable HISTORY: 78 years-old Male Sepsis acute cough with sepsis COMPARISON: Chest radiograph 06/11/2018 TECHNIQUE: Portable AP view of the chest FINDINGS: Cardiomediastinal and hilar silhouettes are within normal limits. No pneumothorax, pleural effusion, focal airspace consolidation or overt pulmonary edema. Bones of the chest appear grossly intact. IMPRESSION: No acute process. The above report was generated using voice recognition software. It may contain grammatical, syntax o r spelling errors. Electronically signed by: Avi Chin M.D. 07/14/2018 10:33 AM
[2018-07-14 10:48] LABS: Albumin Level 2.8 gm/dl (3.4-5.0); BUN Creatinine Ratio 8.9 (10-20); Calcium 9.2 mg/dl (8.5-10.1); Creatinine Clr Calc Pharmacy 71.9 ml/min; Est GFR (African American) 88.6; Est GFR (Non-African American) 76.5; Potassium 4.3 mmol/L (3.5-5.1)
[2018-07-14 10:51] LABS: Albumin Globulin Ratio 0.6 (0.9-2); Bilirubin,Total 1.7 mg/dl (0.2-1); Globulin 4.9 gm/dl (2.5-4.0); INR 1.3 (0.9-1.1); Partial Thromboplastin Ratio 1.1; Partial Thromboplastin Time 29.1 Seconds (21.0-31.0); Prothrombin Time 13.4 Seconds (9.0-12.0); Total Protein 7.7 gm/dl (6.4-8.2)
[2018-07-14] MEDS ORDERED: DOXYCYCLINE HYCLATE 100 MG CAP PO STA (11:30)
[2018-07-14] MEDS ORDERED: SODIUM CHLORIDE 0.9% 1000ML 1,000 ML IV ONE (11:59)
[2018-07-14 12:28] LABS: Troponin I < 0.015 ng/ml (0-0.045)
--- NOTE | 2018-07-14 12:46 | History & Physical Report ---
Date of Service July 14, 2018 Assessment & Plan (1) Fever: Pt presented from [facility] with c/o increased cough x 3 days. Today with fever 100F. Denies CP/SOB. Denies urinary symptoms, N/V/D. -In ER pt with temp: 38.4F, P:114, R: 18, BP: 131/76, 98% on RA. WBC: 15, Hgb: 10, Lactate: 2. Negative influenza. UA unremarkable. CXR: no acute process -In ER was given 3L NSS, Tylenol, Rocephin, Doxycycline DDX: bronchitis, cellulitis -pending blood cultures -pending MRSA swab, procalcitonin -Levaquin, vancomycin -monitor volume status as pt had 3L NSS in ER and has hx systolic and diastolic CHF -CBC, CMP in am (2) COPD exacerbation: Increased cough x 3 days. Febrile. No infiltrate noted on CXR. Increased wheezing -solumedrol -xopenex/atrovent nebs -levaquin -continue advair (3) Atrial fibrillation: Atrial fibrillation. On coumadin. In ER P: 114 down to 101 after IVF. INR: 1.3, digoxin: 0.6 -TSH, magnesium labs pending -continue coumadin -monitor INR, anticipate increasing with antibiotics -continue diltiazem, digoxin. (4) Edema of right lower extremity: -pending doppler to R/O DVT ?cellulitis -Levaquin, vancomycin (5) HTN (hypertension): Stable -continue diltiazem -hold lisinopril and lasix and recheck in morning (6) H/O: CVA (cerebrovascular accident): -continue coumadin. Pt reports is no longer taking aspirin (7) DVT (deep venous thrombosis): H/O DVT. S/P IVC filter. -continue coumadin (8) Thrombocytopenia: Chronic thrombocytopenia thought secondary to cirrhosis Plt: 102 -monitor CBC (9) GERD (gastroesophageal reflux disease): -continue H2 landen DVT Prophylaxis -On Coumadin - montior INR, since INR subtherapeutic will start heparin SQ Q12H until therapeutic INR Full Code as per discussion with pt Follows with Dr at [facility] [place] for routine care Pt was seen with Dr Lynn. See addendum History of Present Illness Chief Complaint: Fever, cough Primary Care Provider: [facility] Pt is 78 y/o M with PMH HTN, COPD, A-fib, h/o DVT s/p IVC filter 12/2017, chronic coumadin use, chronic thrombocytopenia, cirrhosis, systolic & diastolic HF, tobacco use presented to ER from [facility] with c/o fever, cough. Pt states has some chronic dry cough however past 3 days with increased cough and today recorded fever of 100F. Pt states today feeling generalized weakness and felt a little dizzy when got out of bed this morning. He denies CP or SOB. Feels like he has had increased wheezing past several days. He reports chronic RLE edema and erythema for past 6 months. Reports others in fpc with URI symptoms also. He states did not take lasix this morning. Denies diaphoresis, N/V/D/C, DUDLEY, syncope, vision changes, neck pain, CP, SOB, orthopnea, palpitations, hemoptysis, sore throat, choking, otalgia, rhinorrhea, abdominal pain, paresthesias, other rashes, urinary symptoms. Pt with hx hospitalization 06/12/18- for R leg cellulitis and COPD exacerbation. Hx echo 10/2017: EF: 45-50%, grade III diastolic dysfunction, moderate-severe mitral regurgitation, severe biatrial enlargement. Allergies Allergy/AdvReac Type Severity Reaction Status Date / Time doxazosin Allergy Intermediate RASH Verified 07/14/18 10:11 prazosin Allergy Unknown [place] Verified 07/14/18 10:11 LIST Home Medications Home Medications Medication Instructions Recorded Confirmed Type acetaminophen 500 mg PO TID PRN 06/12/18 07/14/18 History cyanocobalamin (vitamin B-12) 1,000 mcg PO DAILY 06/12/18 07/14/18 History [Vitamin B-12] digoxin 0.125 mg PO DAILY 06/12/18 07/14/18 History diltiazem HCl [DILT-XR] 120 mg PO DAILY 06/12/18 07/14/18 History fluticasone-salmeterol [Advair 1 puff INHALATION BID 06/12/18 07/14/18 History Diskus] folic acid 1 mg PO DAILY 06/12/18 07/14/18 History furosemide [Lasix] 80 mg PO DAILY 06/12/18 07/14/18 History lactulose 45 ml PO BID PRN 06/12/18 07/14/18 History levalbuterol tartrate [Xopenex HFA] 2 inh INHALATION TID PRN 06/12/18 07/14/18 History lisinopril 5 mg PO DAILY 06/12/18 07/14/18 History metformin 500 mg PO HS 06/12/18 07/14/18 History nitroglycerin [Nitrostat] 0.4 mg SUBLINGUAL UD PRN 06/12/18 07/14/18 History ranitidine HCl 300 mg PO DAILY 06/12/18 07/14/18 History tamsulosin 0.4 mg PO DAILY 06/12/18 07/14/18 History terbinafine HCl 1 applic TOPICAL DAILY 06/12/18 07/14/18 History warfarin 1 mg PO HS 07/14/18 07/14/18 History Past Med/Surg History Medical History Presence of IVC filter (Chronic) Tobacco abuse (Chronic) Chronic heart failure (Chronic) Cirrhosis (Chronic) Atrial fibrillation (Chronic) HTN (hypertension) (Chronic) COPD (chronic obstructive pulmonary disease) (Chronic) Thrombocytopenia (Chronic) Incarcerated umbilical hernia (Resolved) GERD (gastroesophageal reflux disease) (Chronic) H/O: CVA (cerebrovascular accident) (Chronic) DVT (deep venous thrombosis) (Resolved) Surgical History No pertinent past surgical history Family History Other Family history non-contributory Social History Preferred Language: Romanian Beliefs That Will Affect Care: None Current Living Situation: Other Current Living Situation Comment: [facility] Feels Safe at Home: Yes Smoking Status: Current every day smoker Hx Substance Use: No Review of Systems All systems reviewed & are unremarkable except as noted in HPI & below Physical Exam Vital Signs (Past 24 Hours): Last Vital Signs Temp 38.4 C H 07/14/18 09:23 Pulse 104 H 07/14/18 11:47 Resp 18 07/14/18 11:47 BP 110/69 07/14/18 11:47 Pulse Ox 95 07/14/18 11:47 Physical Exam: General: chronic ill appearing male, no acute distress, WDWN Head: normocephalic, atraumatic Eyes: PERRL, EOM's intact, conjunctiva non-injected, anicteric ENT: normal inspection external ears, nose, mucous membranes dry Neck: supple, trachea midline Lungs: clear, no respiratory distress, no wheezing/rhonchi/rales CV: irregularly irregular, rate 102 Abd: normal BS, soft, non-tender Ext: BLE 1+ edema, RLE distal leg with erythema warmth Neuro: A&O x 3, no focal deficits noted, normal affect Skin: warm, dry Results & Data Laboratory Results Short CBC 07/14/18 Range/Units 10:00 WBC 15.26 H (4.8-10.8) K/uL Hgb 10.1 L (14.0-18.0) g/dL Hct 30.6 L (42-52) % Plt Count 102 L (130-400) K/uL BMP 07/14/18 10:00 Sodium 134 L Potassium 4.3 Chloride 100 Carbon Dioxide 26 BUN 9 Creatinine 0.96 Glucose 124 H Calcium 9.2 Cardiac Enzymes 07/14/18 Range/Units 10:00 Troponin I < 0.015 (0-0.045) ng/ml Liver Function 07/14/18 Range/Units 10:00 Total Bilirubin 1.7 H (0.2-1) mg/dl AST 18 (15-37) U/L ALT 12 (12-78) U/L Alkaline Phosphatase 122 H (45-117) U/L Albumin 2.8 L (3.4-5.0) gm/dl Diagnostic Findings CXR: IMPRESSION: No acute process. Supervising Physician Co-Signing Physician Notes Pt was seen and examined. Agreed with Margret HOPE exam, assessment and plan. 78 y/o M with PMH HTN, COPD, A-fib, h/o DVT s/p IVC filter 12/2017, chronic coumadin use, chronic thrombocytopenia, cirrhosis, systolic & diastolic HF, tobacco use presented to ER from [facility] with fever associated with worsening cough and SOB. CXR showed no pneumothorax, pleural effusion, focal airspace consolidation or overt pulmonary edema. Influenza PCR negative for flu. Received Rocephin and doxycycline in the ER. Will check blood cx. Will continue rocephin and added Vanco and levaquin. Continue monitor closely. MD Shane
[2018-07-14 13:01] LABS: Appearance Urine Clear (Clear); Bilirubin Urine Negative (Negative); Blood Urine Negative (Negative); Color Urine Dark Yellow; Glucose Urine UA Negative (Negative); Ketones Urine Trace (Negative); Leukocyte Esterase Urine Negative (Negative); Nitrite Urine Negative (Negative); Protein Urine Negative (Negative); Specific Gravity Urine 1.017 (1.000-1.030); Urobilinogen Urine Negative (Negative); pH Urine 7.5 (4.5-7.5)
[2018-07-14] MEDS ORDERED: CARBOHYDRATES FOR HYPOGLYCEMIA PO PRN (13:21)
[2018-07-14] MEDS ORDERED: DEXTROSE 50% 50 ML SYRINGE IV PRN (13:21)
[2018-07-14] MEDS ORDERED: GLUCOSE 40% GEL 15 GM TUBE PO PRN (13:21)
[2018-07-14] MEDS ORDERED: GLUCOSE 10 TABS/TUBE PO PRN (13:21)
[2018-07-14] MEDS ORDERED: ACETAMINOPHEN 325 MG TAB PO PRN (13:21)
[2018-07-14] MEDS ORDERED: NITROGLYCERIN SL 0.4 MG/TAB TAB SL PRN (13:21)
[2018-07-14] MEDS ORDERED: GLUCAGON FOR INJ 1 MG VIAL SQ PRN (13:21)
[2018-07-14] MEDS ORDERED: XOPENEX/ATROVENT 0.63mg/0.5MG NEB COMBO NEB SCH (14:00)
[2018-07-14] MEDS ORDERED: VANCOMYCIN CONSULT ACTIVE PRN (14:14)
[2018-07-14] MEDS ORDERED: VANCOMYCIN HCL 2,000 MG in SODIUM CHLORIDE 0.9% 500 ML IV ONE (15:00)
[2018-07-14] MEDS: methylPREDNISolone 40 MG in SYRINGE 0 ML IV SCH ×2 (15:03→21:00)
[2018-07-14] MEDS: LEVOFLOXACIN/D5W 500 MG/100 ML BAG IV SCH (15:03)
[2018-07-14] MEDS: NICOTINE 21 MG/24 HR TDSY TD SCH (15:03)
--- NOTE | 2018-07-14 15:32 | Emergency Department Note ---
Entered by Cooper Carter acting as a scribe for Darius Gimenez DO History of Present Illness General Chief complaint: Illness Stated complaint: TACHYCARDIA, R/O PNEUMONIA Source: patient Limitations: no limitations History of Present Illness Provider complaint: Cough/Chills Onset (ago): day(s) (3) Location: chest (Cough) Pain Consistency: + other (persistent) Maximum Pain Intensity: 7 Quality: + other (Cough) Associated symptoms: + fever/chills and + nausea/vomiting (No vomiting) Treatments prior to arrival: none The patient is a 78 year old male from [facility] who presents to the Emergency Room with complaints of persistent cough and chills. The patient states that he has felt unwell for the past 3 days. He complains of chills, cough, involuntary tremors, runny nose, and weakness. The note from [facility] states that patient has been febrile. He does note some nausea as well, but denies any vomiting or diarrhea. He also denies any dysuria or chest pain. The patient states that there is some swelling in the right lower extremity, but this has been there since this past Summer. The patient is on Coumadin for a history of atrial fibrillation and pulmonary emboli. No other exacerbating or remitting factors. Home Medications Home Medications Medication Instructions Recorded Confirmed Type acetaminophen 500 mg PO TID PRN 06/12/18 07/14/18 History cyanocobalamin (vitamin B-12) 1,000 mcg PO DAILY 06/12/18 07/14/18 History [Vitamin B-12] digoxin 0.125 mg PO DAILY 06/12/18 07/14/18 History diltiazem HCl [DILT-XR] 120 mg PO DAILY 06/12/18 07/14/18 History fluticasone-salmeterol [Advair 1 puff INHALATION BID 06/12/18 07/14/18 History Diskus] folic acid 1 mg PO DAILY 06/12/18 07/14/18 History furosemide [Lasix] 80 mg PO DAILY 06/12/18 07/14/18 History lactulose 45 ml PO BID PRN 06/12/18 07/14/18 History levalbuterol tartrate [Xopenex HFA] 2 inh INHALATION TID PRN 06/12/18 07/14/18 History lisinopril 5 mg PO DAILY 06/12/18 07/14/18 History metformin 500 mg PO HS 06/12/18 07/14/18 History nitroglycerin [Nitrostat] 0.4 mg SUBLINGUAL UD PRN 06/12/18 07/14/18 History ranitidine HCl 300 mg PO DAILY 06/12/18 07/14/18 History tamsulosin 0.4 mg PO DAILY 06/12/18 07/14/18 History terbinafine HCl 1 applic TOPICAL DAILY 06/12/18 07/14/18 History warfarin 1 mg PO HS 07/14/18 07/14/18 History Allergies Allergy/AdvReac Type Severity Reaction Status Date / Time doxazosin Allergy Intermediate RASH Verified 07/14/18 10:11 prazosin Allergy Unknown [place] Verified 07/14/18 10:11 LIST Past Med/Surg History Medical History Presence of IVC filter (Chronic) Tobacco abuse (Chronic) Chronic heart failure (Chronic) Cirrhosis (Chronic) Atrial fibrillation (Chronic) HTN (hypertension) (Chronic) COPD (chronic obstructive pulmonary disease) (Chronic) Thrombocytopenia (Chronic) Incarcerated umbilical hernia (Resolved) GERD (gastroesophageal reflux disease) (Chronic) H/O: CVA (cerebrovascular accident) (Chronic) DVT (deep venous thrombosis) (Resolved) Surgical History No pertinent past surgical history Family History Other Family history non-contributory Social History Preferred Language: Armenian Beliefs That Will Affect Care: None Current Living Situation: Other Current Living Situation Comment: [facility] facility Feels Safe at Home: Yes Smoking Status: Current every day smoker Hx Substance Use: No Review of Systems See HPI for pertinent positives & negatives. and A total of 10 systems reviewed and were otherwise negative Physical Exam Vital Signs Vital Signs - 24 hr 07/14/18 09:23 07/14/18 09:41 07/14/18 10:00 Temperature 38.4 C H Temperature Source Oral Sepsis Recent Fever Within 48 Hours No Sepsis New/Unexplained Change in Mental Status No Sepsis Action Taken by Nursing No Action Required Pulse Rate 114 H Pulse Rate [Left Finger] Respiratory Rate 18 Respiratory Effort / Characteristics Non-Labored Spontaneous Respiratory Depth Normal Respiratory Pattern Regular Blood Pressure 131/76 Blood Pressure [Left Arm] Blood Pressure [Right Arm] Blood Pressure Mean 94 Blood Pressure Mean [Left Arm] Blood Pressure Mean [Right Arm] Blood Pressure Position Sitting Blood Pressure Position [Left Arm] Pulse Oximetry 98 100 100 Oxygen Delivery Method Room Air Room Air Room Air Oxygen Flow Rate 07/14/18 10:21 07/14/18 11:47 07/14/18 12:00 Temperature Temperature Source Sepsis Recent Fever Within 48 Hours Sepsis New/Unexplained Change in Mental Status Sepsis Action Taken by Nursing Pulse Rate Pulse Rate [Left Finger] 113 H 104 H Respiratory Rate 36 H 18 Respiratory Effort / Characteristics Spontaneous Labored Respiratory Depth Normal Respiratory Pattern Regular Blood Pressure Blood Pressure [Left Arm] Blood Pressure [Right Arm] 155/80 H 110/69 Blood Pressure Mean Blood Pressure Mean [Left Arm] Blood Pressure Mean [Right Arm] 105 82 Blood Pressure Position Blood Pressure Position [Left Arm] Pulse Oximetry 100 95 Oxygen Delivery Method Room Air Room Air Nasal Cannula Oxygen Flow Rate 2 07/14/18 13:00 07/14/18 13:21 07/14/18 13:36 Temperature 36.8 C 36.6 C Temperature Source Oral Oral Sepsis Recent Fever Within 48 Hours Sepsis New/Unexplained Change in Mental Status Sepsis Action Taken by Nursing Pulse Rate 101 H Pulse Rate [Left Finger] 100 H 98 H Respiratory Rate 20 20 26 H Respiratory Effort / Characteristics Non-Labored Spontaneous Respiratory Depth Respiratory Pattern Blood Pressure 121/73 Blood Pressure [Left Arm] 136/65 Blood Pressure [Right Arm] Blood Pressure Mean Blood Pressure Mean [Left Arm] 88 Blood Pressure Mean [Right Arm] Blood Pressure Position Blood Pressure Position [Left Arm] Sitting Pulse Oximetry 96 97 95 Oxygen Delivery Method Room Air Room Air Nasal Cannula Oxygen Flow Rate 2 07/14/18 15:02 Temperature 36.9 C Temperature Source Oral Sepsis Recent Fever Within 48 Hours Sepsis New/Unexplained Change in Mental Status Sepsis Action Taken by Nursing Pulse Rate Pulse Rate [Left Finger] 93 H Respiratory Rate 18 Respiratory Effort / Characteristics Respiratory Depth Respiratory Pattern Blood Pressure Blood Pressure [Left Arm] 115/61 Blood Pressure [Right Arm] Blood Pressure Mean Blood Pressure Mean [Left Arm] 79 Blood Pressure Mean [Right Arm] Blood Pressure Position Blood Pressure Position [Left Arm] Lying Pulse Oximetry 97 Oxygen Delivery Method Nasal Cannula Oxygen Flow Rate 1.5 GENERAL: Sitting up in bed, legs shackled, disheveled, non-toxic EYE EXAM: normal conjunctiva. OROPHARYNX: no exudate, no erythema, lips, buccal mucosa, and tongue normal and mucous membranes are moist NECK: supple, no nuchal rigidity, no adenopathy, non-tender LUNGS: Clear to auscultation. Normal chest wall mechanics HEART: no murmurs, S1 normal and S2 normal ABDOMEN: abdomen soft, non-tender, normo-active bowel, sounds, no masses, no rebound or guarding. BACK: Back is symmetrical on inspection and there is no deformity, no midline tenderness, no CVA tenderness. SKIN: no rashes and no bruising. The RLE with mild erythema throughout the villa. Skin is warm, non-tender. UPPER EXTREMITIES: upper extremities are grossly normal. Mild diffuse tremors. LOWER EXTREMITIES: No pitting edema. Mild diffuse tremors. NEURO EXAM: Normal sensorium, cranial nerves II-XII grossly intact, normal speech, no gross weakness of arms, no gross weakness of legs. Course 0933: Past medical records reviewed. The patient was evaluated in room B2, and a complete history and physical examination were performed. 1129: I reviewed the patient's case with Nedra Hernandez [facility] Hospitalist JAYY. She will evaluate the patient for further management. Administered Medications Levofloxacin/Dextrose (Levaquin/D5w) 500 mg in 100 mls @ 100 mls/hr IV Q24H [facility]; Protocol Stop: 07/21/18 13:59 Last Admin: 07/14/18 15:03 Dose: 100 mls/hr Documented by: [id number] Methylprednisolone 40 mg/ (Syringe) 0.64 mls @ 1.5 mls/min IV Q8 STEPHANE Stop: 08/13/18 14:29 Last Admin: 07/14/18 15:03 Dose: 1.5 mls/min Documented by: [id number] Nicotine (Nicoderm Cq) 21 mg TD QAM STEPHANE Stop: 08/13/18 13:20 Last Admin: 07/14/18 15:03 Dose: Not Given Documented by: [id number] Discontinued Medications Acetaminophen (Tylenol) 1,000 mg PO NOW STA Stop: 07/14/18 09:40 Last Admin: 07/14/18 10:19 Dose: 1,000 mg Documented by: [id number] Doxycycline Hyclate (Vibramycin) 100 mg PO NOW STA Stop: 07/14/18 11:31 Last Admin: 07/14/18 11:42 Dose: 100 mg Documented by: [id number] Sodium Chloride (Nss 1000ml) 2,000 mls @ 999 mls/hr IV .Q2H1M ONE Stop: 07/14/18 11:37 Last Infusion: 07/14/18 12:06 Dose: 0 mls/hr Documented by: [id number] Admin: 07/14/18 10:18 Dose: 999 mls/hr Documented by: [id number] Ceftriaxone Sodium (Rocephin) 1,000 mg in 50 mls @ 100 mls/hr IV NOW STA Stop: 07/14/18 10:06 Last Infusion: 07/14/18 10:48 Dose: 0 mls/hr Documented by: [id number] Admin: 07/14/18 10:18 Dose: 100 mls/hr Documented by: [id number] Sodium Chloride (Nss 1000ml) 1,000 mls @ 999 mls/hr IV .Q1H1M ONE Stop: 07/14/18 12:59 Last Infusion: 07/14/18 13:10 Dose: 0 mls/hr Documented by: [id number] Admin: 07/14/18 12:06 Dose: 999 mls/hr Documented by: [id number] Medical Decision Making Differential Diagnosis Differential diagnosis: Etiologies such as sepsis, UTI, pneumonia, bacteremia, metabolic process, electrolyte abnormalities, cardiac sources, intracerebral event, intra-abdominal process, toxicological process, neurologic process, as well as others were entertained. Medical Records Attestation: I reviewed the patient's medical records. Home Medications Current Medication List: was personally reviewed by me Laboratory Data Attestation: I reviewed the patient's lab results. Result diagrams: 07/14/18 10:00 07/14/18 10:00 Lab Results 07/14/18 07/14/18 07/14/18 Range/Units 09:57 10:00 10:00 WBC 15.26 H (4.8-10.8) K/uL RBC 3.09 L (4.7-6.1) M/uL Hgb 10.1 L (14.0-18.0) g/dL POC Hgb (14.0-18.0) g/dl Hct 30.6 L (42-52) % POC Hct (42-52) % MCV 99.0 (80-100) fL MCH 32.7 (25-34) pg MCHC 33.0 (32-36) g/dL RDW Std Deviation 61.6 H (36.4-46.3) fL RDW Coeff of Charo 17.2 H (11.5-14.5) % Plt Count 102 L (130-400) K/uL MPV 9.9 (7.4-10.4) fL Immature Gran % (Auto) 0.3 % Neut % (Auto) 89.1 % Lymph % (Auto) 3.7 % [place] % (Auto) 6.7 % Eos % (Auto) 0.1 % Baso % (Auto) 0.1 % Immature Gran # (Auto) 0.05 H (0.00-0.02) K/uL Neut # (Auto) 13.59 H (1.4-6.5) K/uL Lymph # (Auto) 0.57 L (1.2-3.4) K/uL [place] # (Auto) 1.03 H (0.11-0.59) K/uL Eos # (Auto) 0.01 (0-0.5) K/uL Baso # (Auto) 0.01 (0-0.2) K/uL PT 13.4 H (9.0-12.0) Seconds INR 1.3 H (0.9-1.1) APTT 29.1 (21.0-31.0) Seconds PTT Ratio 1.1 POC Sodium (135-144) mEq/L Sodium (136-145) mmol/L POC Potassium (3.3-5.0) mEq/L Potassium (3.5-5.1) mmol/L POC Chloride (101-112) mEq/L Chloride (98-107) mmol/L Carbon Dioxide (21-32) mmol/L POC Total CO2 (24-31) mEq/l Anion Gap (3-11) POC Anion Gap (16-25) mmol/L POC BUN (7-18) mg/dl BUN (7-18) mg/dl Creatinine (0.6-1.4) mg/dl POC Creatinine (0.6-1.3) mg/dl Est Cr Clr Drug Dosing ml/min Est GFR ( Amer) Est GFR (Non-Af Amer) BUN/Creatinine Ratio (10-20) Glucose (70-99) mg/dl POC Glucose (other) (70-99) mg/dl Lactate 2.0 (0.4-2.0) mmol/L Calcium (8.5-10.1) mg/dl POC Ioniz Calcium Arelis (1.12-1.32) mmol/l Magnesium (1.8-2.4) mg/dl Total Bilirubin (0.2-1) mg/dl AST (15-37) U/L ALT (12-78) U/L Alkaline Phosphatase (45-117) U/L Troponin I (0-0.045) ng/ml Total Protein (6.4-8.2) gm/dl Albumin (3.4-5.0) gm/dl Globulin (2.5-4.0) gm/dl Albumin/Globulin Ratio (0.9-2) Procalcitonin (0-0.5) ng/ml TSH (0.300-4.500) uIu/ml Urine Color Urine Appearance (Clear) Urine pH (4.5-7.5) Ur Specific [place] (1.000-1.030) Urine Protein (Negative) Urine Glucose (UA) (Negative) Urine Ketones (Negative) Urine Blood (Negative) Urine Nitrite (Negative) Urine Bilirubin (Negative) Urine Urobilinogen (Negative) Ur Leukocyte Esterase (Negative) Digoxin (0.8-2.0) ng/ml Influenza Type A Ag (Neg) Influenza Type B Ag (Neg) 07/14/18 07/14/18 07/14/18 Range/Units 10:00 10:00 10:00 WBC (4.8-10.8) K/uL RBC (4.7-6.1) M/uL Hgb (14.0-18.0) g/dL POC Hgb (14.0-18.0) g/dl Hct (42-52) % POC Hct (42-52) % MCV (80-100) fL MCH (25-34) pg MCHC (32-36) g/dL RDW Std Deviation (36.4-46.3) fL RDW Coeff of Charo (11.5-14.5) % Plt Count (130-400) K/uL MPV (7.4-10.4) fL Immature Gran % (Auto) % Neut % (Auto) % Lymph % (Auto) % [place] % (Auto) % Eos % (Auto) % Baso % (Auto) % Immature Gran # (Auto) (0.00-0.02) K/uL Neut # (Auto) (1.4-6.5) K/uL Lymph # (Auto) (1.2-3.4) K/uL [place] # (Auto) (0.11-0.59) K/uL Eos # (Auto) (0-0.5) K/uL Baso # (Auto) (0-0.2) K/uL PT (9.0-12.0) Seconds INR (0.9-1.1) APTT (21.0-31.0) Seconds PTT Ratio POC Sodium (135-144) mEq/L Sodium 134 L (136-145) mmol/L POC Potassium (3.3-5.0) mEq/L Potassium 4.3 (3.5-5.1) mmol/L POC Chloride (101-112) mEq/L Chloride 100 (98-107) mmol/L Carbon Dioxide 26 (21-32) mmol/L POC Total CO2 (24-31) mEq/l Anion Gap 8.0 (3-11) POC Anion Gap (16-25) mmol/L POC BUN (7-18) mg/dl BUN 9 (7-18) mg/dl Creatinine 0.96 (0.6-1.4) mg/dl POC Creatinine (0.6-1.3) mg/dl Est Cr Clr Drug Dosing 71.9 ml/min Est GFR ( Amer) 88.6 Est GFR (Non-Af Amer) 76.5 BUN/Creatinine Ratio 8.9 L (10-20) Glucose 124 H (70-99) mg/dl POC Glucose (other) (70-99) mg/dl Lactate (0.4-2.0) mmol/L Calcium 9.2 (8.5-10.1) mg/dl POC Ioniz Calcium Arelis (1.12-1.32) mmol/l Magnesium (1.8-2.4) mg/dl Total Bilirubin 1.7 H (0.2-1) mg/dl AST 18 (15-37) U/L ALT 12 (12-78) U/L Alkaline Phosphatase 122 H (45-117) U/L Troponin I < 0.015 (0-0.045) ng/ml Total Protein 7.7 (6.4-8.2) gm/dl Albumin 2.8 L (3.4-5.0) gm/dl Globulin 4.9 H (2.5-4.0) gm/dl Albumin/Globulin Ratio 0.6 L (0.9-2) Procalcitonin (0-0.5) ng/ml TSH 1.710 (0.300-4.500) uIu/ml Urine Color Urine Appearance (Clear) Urine pH (4.5-7.5) Ur Specific [place] (1.000-1.030) Urine Protein (Negative) Urine Glucose (UA) (Negative) Urine Ketones (Negative) Urine Blood (Negative) Urine Nitrite (Negative) Urine Bilirubin (Negative) Urine Urobilinogen (Negative) Ur Leukocyte Esterase (Negative) Digoxin 0.6 L (0.8-2.0) ng/ml Influenza Type A Ag (Neg) Influenza Type B Ag (Neg) 07/14/18 07/14/18 07/14/18 Range/Units 10:00 10:00 10:05 WBC (4.8-10.8) K/uL RBC (4.7-6.1) M/uL Hgb (14.0-18.0) g/dL POC Hgb (14.0-18.0) g/dl Hct (42-52) % POC Hct (42-52) % MCV (80-100) fL MCH (25-34) pg MCHC (32-36) g/dL RDW Std Deviation (36.4-46.3) fL RDW Coeff of Charo (11.5-14.5) % Plt Count (130-400) K/uL MPV (7.4-10.4) fL Immature Gran % (Auto) % Neut % (Auto) % Lymph % (Auto) % [place] % (Auto) % Eos % (Auto) % Baso % (Auto) % Immature Gran # (Auto) (0.00-0.02) K/uL Neut # (Auto) (1.4-6.5) K/uL Lymph # (Auto) (1.2-3.4) K/uL [place] # (Auto) (0.11-0.59) K/uL Eos # (Auto) (0-0.5) K/uL Baso # (Auto) (0-0.2) K/uL PT (9.0-12.0) Seconds INR (0.9-1.1) APTT (21.0-31.0) Seconds PTT Ratio POC Sodium (135-144) mEq/L Sodium (136-145) mmol/L POC Potassium (3.3-5.0) mEq/L Potassium (3.5-5.1) mmol/L POC Chloride (101-112) mEq/L Chloride (98-107) mmol/L Carbon Dioxide (21-32) mmol/L POC Total CO2 (24-31) mEq/l Anion Gap (3-11) POC Anion Gap (16-25) mmol/L POC BUN (7-18) mg/dl BUN (7-18) mg/dl Creatinine (0.6-1.4) mg/dl POC Creatinine (0.6-1.3) mg/dl Est Cr Clr Drug Dosing ml/min Est GFR ( Amer) Est GFR (Non-Af Amer) BUN/Creatinine Ratio (10-20) Glucose (70-99) mg/dl POC Glucose (other) (70-99) mg/dl Lactate (0.4-2.0) mmol/L Calcium (8.5-10.1) mg/dl POC Ioniz Calcium Arelis (1.12-1.32) mmol/l Magnesium 1.7 L (1.8-2.4) mg/dl Total Bilirubin (0.2-1) mg/dl AST (15-37) U/L ALT (12-78) U/L Alkaline Phosphatase (45-117) U/L Troponin I (0-0.045) ng/ml Total Protein (6.4-8.2) gm/dl Albumin (3.4-5.0) gm/dl Globulin (2.5-4.0) gm/dl Albumin/Globulin Ratio (0.9-2) Procalcitonin 0.31 (0-0.5) ng/ml TSH (0.300-4.500) uIu/ml Urine Color Urine Appearance (Clear) Urine pH (4.5-7.5) Ur Specific [place] (1.000-1.030) Urine Protein (Negative) Urine Glucose (UA) (Negative) Urine Ketones (Negative) Urine Blood (Negative) Urine Nitrite (Negative) Urine Bilirubin (Negative) Urine Urobilinogen (Negative) Ur Leukocyte Esterase (Negative) Digoxin (0.8-2.0) ng/ml Influenza Type A Ag Neg for Influ A (Neg) Influenza Type B Ag Neg for Influ B (Neg) 07/14/18 07/14/18 Range/Units 10:15 12:40 WBC (4.8-10.8) K/uL RBC (4.7-6.1) M/uL Hgb (14.0-18.0) g/dL POC Hgb 10.2 L (14.0-18.0) g/dl Hct (42-52) % POC Hct 30 L (42-52) % MCV (80-100) fL MCH (25-34) pg MCHC (32-36) g/dL RDW Std Deviation (36.4-46.3) fL RDW Coeff of Charo (11.5-14.5) % Plt Count (130-400) K/uL MPV (7.4-10.4) fL Immature Gran % (Auto) % Neut % (Auto) % Lymph % (Auto) % [place] % (Auto) % Eos % (Auto) % Baso % (Auto) % Immature Gran # (Auto) (0.00-0.02) K/uL Neut # (Auto) (1.4-6.5) K/uL Lymph # (Auto) (1.2-3.4) K/uL [place] # (Auto) (0.11-0.59) K/uL Eos # (Auto) (0-0.5) K/uL Baso # (Auto) (0-0.2) K/uL PT (9.0-12.0) Seconds INR (0.9-1.1) APTT (21.0-31.0) Seconds PTT Ratio POC Sodium 134 L (135-144) mEq/L Sodium (136-145) mmol/L POC Potassium 4.3 (3.3-5.0) mEq/L Potassium (3.5-5.1) mmol/L POC Chloride 97 L (101-112) mEq/L Chloride (98-107) mmol/L Carbon Dioxide (21-32) mmol/L POC Total CO2 26 (24-31) mEq/l Anion Gap (3-11) POC Anion Gap 16.0 (16-25) mmol/L POC BUN 7 (7-18) mg/dl BUN (7-18) mg/dl Creatinine (0.6-1.4) mg/dl POC Creatinine 0.8 (0.6-1.3) mg/dl Est Cr Clr Drug Dosing ml/min Est GFR ( Amer) Est GFR (Non-Af Amer) BUN/Creatinine Ratio (10-20) Glucose (70-99) mg/dl POC Glucose (other) 129 H (70-99) mg/dl Lactate (0.4-2.0) mmol/L Calcium (8.5-10.1) mg/dl POC Ioniz Calcium Arel[place] 1.24 (1.12-1.32) mmol/l Magnesium (1.8-2.4) mg/dl Total Bilirubin (0.2-1) mg/dl AST (15-37) U/L ALT (12-78) U/L Alkaline Phosphatase (45-117) U/L Troponin I (0-0.045) ng/ml Total Protein (6.4-8.2) gm/dl Albumin (3.4-5.0) gm/dl Globulin (2.5-4.0) gm/dl Albumin/Globulin Ratio (0.9-2) Procalcitonin (0-0.5) ng/ml TSH (0.300-4.500) uIu/ml Urine Color Dark Yellow Urine Appearance Clear (Clear) Urine pH 7.5 (4.5-7.5) Ur Specific [place] 1.017 (1.000-1.030) Urine Protein Negative (Negative) Urine Glucose (UA) Negative (Negative) Urine Ketones Trace H (Negative) Urine Blood Negative (Negative) Urine Nitrite Negative (Negative) Urine Bilirubin Negative (Negative) Urine Urobilinogen Negative (Negative) Ur Leukocyte Esterase Negative (Negative) Digoxin (0.8-2.0) ng/ml Influenza Type A Ag (Neg) Influenza Type B Ag (Neg) Imaging Data Attestation: I personally reviewed and interpreted this imaging study as follows: Radiologist's Impression: XR chest 1V portable HISTORY: 78 years-old Male Sepsis acute cough with sepsis COMPARISON: Chest radiograph 06/11/2018 TECHNIQUE: Portable AP view of the chest FINDINGS: Cardiomediastinal and hilar silhouettes are within normal limits. No pneumothorax, pleural effusion, focal airspace consolidation or overt pulmonary edema. Bones of the chest appear grossly intact. IMPRESSION: No acute process. The above report was generated using voice recognition software. It may contain grammatical, syntax or spelling errors. Electronically signed by: Avi Chin M.D. 07/14/2018 10:33 AM ECG Data Attestation: I personally reviewed and interpreted this ECG as follows: Indication: weakness Rate (beats per minute): 113 Rhythm: atrial flutter Findings: + other (LAD), + ST depression, + T-wave inversion (lateral) and + acute ischemic change (lateral and high lateral) Comparison ECG Date: from (06/14/2018) Change: the following changes noted (High lateral is worse, lateral changes are new) Blood Pressure Blood Pressure Findings: Elevated blood pressure Blood Pressure Disposition: elevated BP felt to be situational MDM Narrative Patient is a 78-year-old male who was brought in from the present for 3 days worth of a cough runny nose and shortness of breath. Patient has a history of COPD and atrial flutter on digoxin and Coumadin. Patient upon presentation is f ound to be febrile and tachycardic. He was slightly hypoxic at 89-90% on room air. Labs were obtained and showed a leukocytosis of 15,000. INR was slightly subtherapeutic at 1.3. BMP was fairly unremarkable. LFTs were normal and T bilirubin was elevated at 1.7. UA was unremarkable. Digoxin was low. Patient's EKG confirmed atrial flutter with RVR with a heart rate in the 1 teens. Chest x-ray without any obvious focal infiltrate. Patient was covered with IV antibiotics. He was given 3 L normal saline. He was updated bedside. Discussed with the hospitalist and patient was admitted for further workup. Impression & Plan Sepsis, Leukocytosis Discharge Plan Visit Data *Final* Discharge Date/Time: 07/14/18 13:00 Chief Complaint: Illness Stated Complaint: TACHYCARDIA, R/O PNEUMONIA ED Provider: Darius Gimenez Discharge Problem: Sepsis, Leukocytosis Patient Disposition: Admitted As Inpatient Discharge Instructions Interventions: ED Discharge Assessment Last Done: 07/14/18 13:00 Discharge Problem: Leukocytosis Qualifiers: Leukocytosis type: unspecified Qualified Code(s): D72.829 - Elevated white blood cell count, unspecified The scribe's documentation has been prepared under my direction and personally reviewed by me in its entirety. I confirm that the note above accurately reflects all work, treatment, procedures, and medical decision making performed by me.
[2018-07-14] MEDS ORDERED: MAGNESIUM SULFATE / D5W 1 GM/100 ML BAG IV ONE (16:00)
--- NOTE | 2018-07-14 16:59 | Ultrasound Report ---
US venous doppler LE RT HISTORY: 78 years-old Male r/o DVT follow-up study in a patient with right lower extremity DVT COMPARISON: Complex venous Doppler study 06/12/2018 TECHNIQUE: Multiple real-time sonographic images of the right lower extremity deep venous structures were obtained assessing grayscale appearance, color and spectral flow FINDINGS: Linear nonocclusive thrombus about the right popliteal vein redemonstrated along with echogenic nonoc clusive thrombus in a superficial vessel of the right popliteal fossa. No occlusive deep venous throm bosis identified. The remaining the venous structures of the right lower extremity. Unremarkable. Mil dly prominent right inguinal lymph node, physiologically appearing normal measures 3.1 x 0.9 cm, unch anged. Right popliteal cyst measures 1.5 x 3.0 x 0.6 cm. Mild subcutaneous edema about the lower extr emity.. IMPRESSION: 1. No sonographic evidence of acute occlusive deep venous thrombosis. 2. Chronic nonocclusive thrombus about the right popliteal vein redemonstrated. The above report was generated using voice recognition software. It may contain grammatical, syntax o r spelling errors. Electronically signed by: Avi Chin M.D. 07/14/2018 4:58 PM
[2018-07-14] MEDS: INSULIN ASPART 100 UNITS/ML 3 ML PEN SC SCH ×2 (17:38→20:57)
--- NOTE | 2018-07-14 18:01 | Pharmacy Report ---
Pharmacy Abx Initial Consult - Date of Service July 14, 2018 - Pharmacy Dosing Scope Date of Consult: 07/14/18 Consultation requested by: Margret Hernandez Pharmacy is consulted to initiate Vancomyin IV dosing therapy, order appropriate labs and adjust drug dose/frequency. - Subjective The patient is a 78 year old M admitted on 07/14/18 12:27. - Objective Height: 6 ft Weight: 86.5 kg Vital Signs (Past 12hrs): Vital Signs Temp Pulse Pulse Resp BP BP BP 07/14/18 15:38 83 07/14/18 15:02 36.9 C 93 H 18 115/61 07/14/18 13:36 98 H 26 H 07/14/18 13:21 36.6 C 100 H 20 136/65 07/14/18 13:00 36.8 C 101 H 20 121/73 07/14/18 11:47 104 H 18 110/69 07/14/18 10:21 113 H 36 H 155/80 H 07/14/18 10:00 07/14/18 09:41 07/14/18 09:23 38.4 C H 114 H 18 131/76 Pulse Ox 07/14/18 15:38 07/14/18 15:02 97 07/14/18 13:36 95 07/14/18 13:21 97 07/14/18 13:00 96 07/14/18 11:47 95 07/14/18 10:21 100 07/14/18 10:00 100 07/14/18 09:41 100 07/14/18 09:23 98 Lab Results (24hrs): Laboratory Tests (24 Hours) 07/14/18 07/14/18 07/14/18 10:00 10:00 10:00 WBC 15.26 H Neut # (Auto) 13.59 H Creatinine 0.96 Est Cr Clr Drug Dosing 71.9 Procalcitonin 0.31 Micro Results: 07/14/18 10:00 Blood Culture - Pending Blood 07/14/18 09:57 Blood Culture - Pending Blood - Risk Factors for Resistance * Resident is incarcerated * Hospitalization for more than 48 hours within last 90 days - Assessment & Plan Assessment 78 year old M presenting to the ED from [facility] with fever and cough that has increased over the last 3 days. He also reports chronic RLE edema and erythema for past 6 months. MRSA nasal swab is +. Blood cultures x2 currently pending. Plan Vancomycin for treatment of Pneumonia and RLE edema and erythema Vancomycin IV * Estimated PK Parameters: Vd 0.7 L/kg, Parish 0.064 hr-1, t1/2 11 hr * Loading dose: 2000 mg (23 mg/kg) * Maintenance dose: 1250 mg IV (14.5 mg/kg) every 12 hours * Goal trough level for PNA/cellulitis : 15 to 20 mcg/mL * Trough level ordered for 07/16/18 at 1330 Patient also receiving Levaquin 500mg IV Q24 Pharmacy will continue to follow and will adjust dose/frequency as necessary. Thank you.
[2018-07-14] MEDS: LEVALBUTEROL HCL 0.63 MG/3 ML NEB NEB SCH (19:32)
[2018-07-14] MEDS: IPRATROPIUM BROMIDE NEB SOLN 0.02% 2.5 ML VIAL INH SCH (19:32)
[2018-07-14] MEDS: MUPIROCIN 2% OINT 22 GM TUBE EXT SCH (20:54)
[2018-07-14] MEDS: HEPARIN SOD 5,000 UNIT/0.5 ML VIAL SQ SCH (20:55)
[2018-07-14] MEDS: FLUTICASONE/SALMETEROL 100/50 (ADVAIR) 14 PUFF/1 INHALER INH SCH (20:56)
[2018-07-14] MEDS ORDERED: WARFARIN SOD 1 MG TAB PO SCH (21:00)
[2018-07-15] MEDS: VANCOMYCIN HCL 1,250 MG in SODIUM CHLORIDE 0.9% 250 ML IV SCH ×2 (02:06→14:22)
[2018-07-15] MEDS: LEVALBUTEROL HCL 0.63 MG/3 ML NEB NEB SCH ×4 (02:10→20:17)
[2018-07-15] MEDS: IPRATROPIUM BROMIDE NEB SOLN 0.02% 2.5 ML VIAL INH SCH ×4 (02:10→20:17)
[2018-07-15] MEDS: methylPREDNISolone 40 MG in SYRINGE 0 ML IV SCH ×3 (06:16→21:07)
[2018-07-15 07:47] LABS: Hematocrit (blood only) 26.6 % (42-52); Hemoglobin 8.9 g/dL (14.0-18.0); Mean Corpuscular Hgb Conc 33.5 g/dL (32-36); Mean Corpuscular Volume 98.5 fL (80-100); RDW Coefficient of Variation 16.9 % (11.5-14.5); RDW Standard Deviation 60.7 fL (36.4-46.3)
[2018-07-15 07:49] LABS: Mean Platelet Volume 11.2 fL (7.4-10.4); Platelet Count 88 K/uL (130-400)
[2018-07-15 07:57] LABS: INR 1.3 (0.9-1.1); Prothrombin Time 13.3 Seconds (9.0-12.0)
[2018-07-15 08:19] LABS: Albumin Level 2.3 gm/dl (3.4-5.0); BUN Creatinine Ratio 13.7 (10-20); Calcium 8.9 mg/dl (8.5-10.1); Est GFR (African American) 93.3; Est GFR (Non-African American) 80.5; Potassium 4.1 mmol/L (3.5-5.1)
[2018-07-15 08:24] LABS: Albumin Globulin Ratio 0.6 (0.9-2); Bilirubin,Total 0.6 mg/dl (0.2-1); Globulin 4.1 gm/dl (2.5-4.0); Total Protein 6.4 gm/dl (6.4-8.2)
[2018-07-15 08:26] LABS: Basophils # (auto) 0.01 K/uL (0-0.2); Basophils % (auto) 0.1 %; Immature Granulocytes # (auto) 0.02 K/uL (0.00-0.02); Immature Granulocytes % (auto) 0.2 %; Lymphocytes # (auto) 0.49 K/uL (1.2-3.4); Lymphocytes % (auto) 4.9 %; Monocytes # (auto) 0.16 K/uL (0.11-0.59); Monocytes % (auto) 1.6 %; Neutrophils # (auto) 9.32 K/uL (1.4-6.5); Neutrophils % (auto) 93.2 %; Polychromasia 1+
[2018-07-15] MEDS: FLUTICASONE/SALMETEROL 100/50 (ADVAIR) 14 PUFF/1 INHALER INH SCH ×2 (08:58→20:57)
[2018-07-15] MEDS: MUPIROCIN 2% OINT 22 GM TUBE EXT SCH ×2 (08:59→20:57)
[2018-07-15] MEDS: HEPARIN SOD 5,000 UNIT/0.5 ML VIAL SQ SCH ×2 (08:59→21:00)
[2018-07-15] MEDS: NICOTINE 21 MG/24 HR TDSY TD SCH (09:00)
[2018-07-15] MEDS: CYANOCOBALAMIN 500 MCG TABLET (VITAMIN B-12) PO SCH (09:00)
[2018-07-15] MEDS: FOLIC ACID 1 MG TAB PO SCH (09:01)
[2018-07-15] MEDS: TAMSULOSIN HCL 0.4 MG CAP PO SCH (09:01)
[2018-07-15] MEDS: INSULIN ASPART 100 UNITS/ML 3 ML PEN SC SCH ×4 (09:03→20:59)
[2018-07-15] MEDS: LEVOFLOXACIN/D5W 500 MG/100 ML BAG IV SCH (12:36)
--- NOTE | 2018-07-15 15:01 | Infectious Disease Consult ---
Date of Consultation July 15, 2018 Assessment & Plan (1) Streptococcal bacteremia: 78-year-old male with streptococcal bacteremia with group G strep, likely from his recurrent right lower extremity cellulitis. Will change patient to IV ceftriaxone 2 g daily, will likely need in the range of 10 days of therapy given positive blood cultures. Would then consider keeping patient on chronic suppressive therapy with amoxicillin 500 mg daily as preventative therapy for recurrent cellulitis. Will follow. (2) Cellulitis of right lower extremity: History of Present Illness Reason for Consultation: Gram-positive cocci Attending Physician: Bonnie Lynn MD History of Present Illness 78-year-old male with history of atrial fibrillation, recurrent DVT, status post IVC filter, COPD, recurrent right lower extremity cellulitis, who was admitted with several days of fever, weakness, shortness of breath, slight cough, and pain, swelling, and redness of his right lower extremity. He has been found to have positive blood cultures for group G streptococcus. Has been started on levofloxacin and vancomycin. Has been afebrile with normal white blood cell count. Still complaining of pain in his right calf, currently 2 out of 10 in intensity. Allergies Allergy/AdvReac Type Severity Reaction Status Date / Time doxazosin Allergy Intermediate [place] Verified 07/14/18 10:11 prazosin Allergy Unknown [place] Verified 07/14/18 10:11 LIST Home Medications Home Medications Medication Instructions Recorded Confirmed Type acetaminophen 500 mg PO TID PRN 06/12/18 07/14/18 History cyanocobalamin (vitamin B-12) 1,000 mcg PO DAILY 06/12/18 07/14/18 History [Vitamin B-12] digoxin 0.125 mg PO DAILY 06/12/18 07/14/18 History diltiazem HCl [DILT-XR] 120 mg PO DAILY 06/12/18 07/14/18 History fluticasone-salmeterol [Advair 1 puff INHALATION BID 06/12/18 07/14/18 History Diskus] folic acid 1 mg PO DAILY 06/12/18 07/14/18 History furosemide [Lasix] 80 mg PO DAILY 06/12/18 07/14/18 History lactulose 45 ml PO BID PRN 06/12/18 07/14/18 History levalbuterol tartrate [Xopenex HFA] 2 inh INHALATION TID PRN 06/12/18 07/14/18 History lisinopril 5 mg PO DAILY 06/12/18 07/14/18 History metformin 500 mg PO HS 06/12/18 07/14/18 History nitroglycerin [Nitrostat] 0.4 mg SUBLINGUAL UD PRN 06/12/18 07/14/18 History ranitidine HCl 300 mg PO DAILY 06/12/18 07/14/18 History tamsulosin 0.4 mg PO DAILY 06/12/18 07/14/18 History terbinafine HCl 1 applic TOPICAL DAILY 06/12/18 07/14/18 History warfarin 1 mg PO HS 07/14/18 07/14/18 History Patient History Medical History Presence of IVC filter (Chronic) Tobacco abuse (Chronic) Chronic heart failure (Chronic) Cirrhosis (Chronic) Atrial fibrillation (Chronic) HTN (hypertension) (Chronic) COPD (chronic obstructive pulmonary disease) (Chronic) Thrombocytopenia (Chronic) Incarcerated umbilical hernia (Resolved) GERD (gastroesophageal reflux disease) (Chronic) H/O: CVA (cerebrovascular accident) (Chronic) DVT (deep venous thrombosis) (Resolved) Surgical History No pertinent past surgical history Family History Other Family history non-contributory Social History Preferred Language: Ukrainian Beliefs That Will Affect Care: None Current Living Situation: Other Current Living Situation Comment: [facility] Feels Safe at Home: Yes Smoking Status: Current every day smoker Hx Substance Use: No Review of Systems All systems were reviewed and are negative except as per HPI Physical Exam Vital Signs (Past 24 Hours): Last Vital Signs Temp 37 C 07/15/18 14:51 Pulse 98 H 07/15/18 14:51 Resp 16 07/15/18 14:51 BP 131/48 L 07/15/18 14:51 Pulse Ox 95 07/15/18 14:51 Constitutional: WD/WN, vitals as above comfortable; no acute distress Eyes: PERRL, conjunctivae normal, anicteric sclerae ENMT: external ear and nose normal, oropharynx normal Neck: trachea midline, no thyromegaly neck nontender Respiratory: normal respiratory effort, lungs clear to auscultation normal percussion; does not use accessory muscles Cardiovascular: Heart Sounds: normal S1 and normal S2; no gallop, no murmur and no cardiac rub Vessels: normal peripheral pulses; no JVD Irregularly irregular Gastrointestinal (Abdomen): normal bowel sounds, soft, nontender, no hepatosplenomegaly Musculoskeletal: no cyanosis or clubbing, extremities motor strength 5/5 Spine: thoracic spine normal to inspection and lumbar spine normal to inspection; no cervical spinal tenderness Skin: no rashes, warm and dry normal turgor; no lesions Right calf erythema with tenderness Neurologic: patellar DTR's 2+ bilat, sensation intact no focal motor deficits Psychiatric: A+Ox3, euthymic affect Orientation: cooperative Lymphatic: no cervical or axillary lymphadenopathy no inguinal lymphadenop athy Results & Data Laboratory Results Short CBC 07/15/18 Range/Units 07:32 WBC 10.00 (4.8-10.8) K/uL Hgb 8.9 L (14.0-18.0) g/dL Hct 26.6 L (42-52) % Plt Count 88 L (130-400) K/uL BMP 07/15/18 07:32 Sodium 137 Potassium 4.1 Chloride 107 Carbon Dioxide 23 BUN 13 Creatinine 0.92 Glucose 212 H Calcium 8.9 Cardiac Enzymes 07/14/18 07/14/18 Range/Units 15:50 22:03 Troponin I 0.021 0.021 (0-0.045) ng/ml Liver Function 07/15/18 Range/Units 07:32 Total Bilirubin 0.6 D (0.2-1) mg/dl AST 15 (15-37) U/L ALT 11 L (12-78) U/L Alkaline Phosphatase 97 (45-117) U/L Albumin 2.3 L (3.4-5.0) gm/dl Diagnostic Findings Microbiology 07/14/18 10:00 Blood Blood Culture - Preliminary Group G Beta Strep 07/14/18 09:57 Blood Blood Culture - Preliminary Group G Beta Strep US venous doppler LE RT HISTORY: 78 years-old Male r/o DVT follow-up study in a patient with right lower extremity DVT COMPARISON: Complex venous Doppler study 06/12/2018 TECHNIQUE: Multiple real-time sonographic images of the right lower extremity deep venous structures were obtained assessing grayscale appearance, color and spectral flow FINDINGS: Linear nonocclusive thrombus about the right popliteal vein redemonstrated along with echogenic nonocclusive thrombus in a superficial vessel of the right popliteal fossa. No occlusive deep venous thrombosis identified. The remaining the venous structures of the right lower extremity. Unremarkable. Mildly prominent right inguinal lymph node, physiologically appearing normal measures 3.1 x 0.9 cm, unchanged. Right popliteal cyst measures 1.5 x 3.0 x 0.6 cm. Mild subcutaneous edema about the lower extremity.. IMPRESSION: 1. No sonographic evidence of acute occlusive deep venous thrombosis. 2. Chronic nonocclusive thrombus about the right popliteal vein redemonstrated. The above report was generated using voice recognition software. It may contain grammatical, syntax or spelling errors.
--- NOTE | 2018-07-15 15:50 | Hospitalist Progress Note ---
Date of Service July 15, 2018 Assessment & Plan (1) Streptococcal bacteremia: (2) Fever: Present on admission with fever associated with cough and worsening SOB CXR on admission showed no acute finding Blood cx grew streptococcal bacteremia with group G strep Procalcitonin wnl Vanco and levaquin d/c ID on board recommended to adjust abx with Rocephin 2g daily Will need a total of 10 days of therapy with Rocephin Levaquin and Vanco discontinued (3) Cellulitis of right lower extremity: Right LE erythema and swelling Doppler of LE showed no acute finding for DVT Will continue Rocephin 2g daily for 10days Due to recurrent cellulitis consider keeping patient on chronic suppressive therapy with amoxicillin 500 mg daily as preventative therapy (4) COPD exacerbation: CXR showed no infiltrate Will titrate solumedrol to BID Continue nub treatment continue advair Continue oxygen supplement (5) Atrial fibrillation: Rate controlled Continue Diltiazem and digoxin INR 1.3 today Coumadin increase to 2mg Low platelet 88 On heparin for prophylaxis until INR therapeutic Monitor CBC (6) HTN (hypertension): Stable continue diltiazem Resume lisinopril in am Lasix on hold (7) H/O: CVA (cerebrovascular accident): Reports no longer taking aspirin Continue coumadin (8) DVT (deep venous thrombosis): H/O DVT. S/P IVC filter. INR 1.3 Increase coumadin to 2mg Continue heparin suq for dvt px (9) Thrombocytopenia: Mostly due to liver cirrhosis Plt 88 No sign of bleeding Monitor CBC (10) GERD (gastroesophageal reflux disease): Continue H2 landen Hyperglycemia Pt denies any hx of DM Metformin on hold Check HBA1C On insulin sliding scale Monitor BS DVT Prophylaxis -On Coumadin, INR 1.3 heparin SQ Q12H until therapeutic INR Full Code Full code Subjective Pt was seen and examined Lying in bed with no distress Pt said that he feels slightly better Denies any chest pain, palpitation, dizziness and fever Physical Exam Vital Signs (Past 24 Hours): Last Vital Signs Temp 37 C 07/15/18 14:51 Pulse 83 07/15/18 15:30 Resp 16 07/15/18 14:51 BP 131/48 L 07/15/18 14:51 Pulse Ox 95 07/15/18 14:51 Physical Exam: General- No acute distress Head- atraumatic Eyes- PERRL, EOMI, ENT- oropharynx clear Neck- supple, no JVD Lungs- +wheezing Heart- irregular rhythm/tachycardia Abdomen- normal bowel sounds, soft, nontender Extremities- +edema and erythema in RLE Neuro- alert, oriented x 3; PERRL, EOMI; no facial palsy, +tremor B/L UE Skin- warm & dry
[2018-07-15] MEDS: cefTRIAXone SODIUM 2,000 MG in DEXTROSE 5% 50 ML IV SCH (16:30)
[2018-07-15] MEDS: WARFARIN SOD 2 MG TAB PO SCH (16:31)
[2018-07-15] MEDS: DIGOXIN 0.125 MG TAB PO SCH (16:31)
[2018-07-15] MEDS: ZOLPIDEM TARTRATE 5 MG TAB PO PRN (22:01)
[2018-07-16] MEDS: IPRATROPIUM BROMIDE NEB SOLN 0.02% 2.5 ML VIAL INH SCH ×4 (01:53→19:53)
[2018-07-16] MEDS: LEVALBUTEROL HCL 0.63 MG/3 ML NEB NEB SCH ×4 (01:53→19:53)
[2018-07-16 07:02] LABS: Hematocrit (blood only) 26.4 % (42-52); Hemoglobin 8.7 g/dL (14.0-18.0); Mean Corpuscular Volume 99.2 fL (80-100); RDW Coefficient of Variation 17.1 % (11.5-14.5); RDW Standard Deviation 61.1 fL (36.4-46.3); Red Blood Count 2.66 M/uL (4.7-6.1); White Blood Count 10.37 K/uL (4.8-10.8)
[2018-07-16 07:08] LABS: Platelet Count 99 K/uL (130-400)
[2018-07-16 07:12] LABS: INR 1.3 (0.9-1.1)
[2018-07-16 07:40] LABS: BUN Creatinine Ratio 24.7 (10-20); Calcium 8.7 mg/dl (8.5-10.1); Creatinine Clr Calc Pharmacy 62.7 ml/min; Est GFR (African American) 75.2; Est GFR (Non-African American) 64.9; Potassium 4.3 mmol/L (3.5-5.1)
[2018-07-16 08:02] LABS: Estimated Average Glucose 123 mg/dl; Hemoglobin A1C 5.9 % (4.5-5.6)
[2018-07-16] MEDS: NICOTINE 21 MG/24 HR TDSY TD SCH (08:29)
[2018-07-16] MEDS: FOLIC ACID 1 MG TAB PO SCH (08:30)
[2018-07-16] MEDS: CYANOCOBALAMIN 500 MCG TABLET (VITAMIN B-12) PO SCH (08:30)
[2018-07-16] MEDS: MUPIROCIN 2% OINT 22 GM TUBE EXT SCH ×2 (08:30→21:00)
[2018-07-16] MEDS: FLUTICASONE/SALMETEROL 100/50 (ADVAIR) 14 PUFF/1 INHALER INH SCH ×2 (08:30→20:56)
[2018-07-16] MEDS: TAMSULOSIN HCL 0.4 MG CAP PO SCH (08:30)
[2018-07-16] MEDS: INSULIN ASPART 100 UNITS/ML 3 ML PEN SC SCH ×4 (08:31→20:57)
[2018-07-16] MEDS: HEPARIN SOD 5,000 UNIT/0.5 ML VIAL SQ SCH ×2 (08:31→20:58)
[2018-07-16] MEDS: methylPREDNISolone 40 MG in SYRINGE 0 ML IV SCH (08:31)
[2018-07-16] MEDS ORDERED: VANCOMYCIN TROUGH ONE (13:30)
--- NOTE | 2018-07-16 14:21 | Hospitalist Progress Note ---
Date of Service July 16, 2018 Assessment & Plan (1) Streptococcal bacteremia: (2) Fever: Present on admission with fever associated with cough and worsening SOB CXR on admission showed no acute finding Blood cx grew streptococcal bacteremia with group G strep Procalcitonin wnl ID on board recommended to adjust abx with Rocephin 2g daily Will need a total of 10 days of therapy with Rocephin Levaquin and Vanco discontinued Repeat blood pending Case discussed with ID today and recommended to discharge on Rocephin 2g for 10 days Antibiotic script left in the chart for case management If he will be discharged on Rocephin, will place midline/picc line once repeat blood cx showed no growth Continue monitor (3) Cellulitis of right lower extremity: Right LE erythema and swelling Doppler of LE showed no acute finding for DVT Will continue Rocephin 2g daily for now Due to recurrent cellulitis consider keeping patient on chronic suppressive therapy with amoxicillin 500 mg daily as preventative therapy (4) COPD exacerbation: CXR showed no infiltrate On solumedrol 40mg to BID Will transition to oral steroid in AM Continue nub treatment continue advair Continue oxygen supplement (5) Atrial fibrillation: Rate controlled Continue Diltiazem and digoxin INR 1.3 today Coumadin increase to 2mg Low platelet 99 On heparin subq for prophylaxis until INR therapeutic Monitor CBC (6) HTN (hypertension): Stable continue diltiazem Resume lisinopril in am Lasix will resume in am (7) H/O: CVA (cerebrovascular accident): Reports no longer taking aspirin Continue coumadin (8) DVT (deep venous thrombosis): H/O DVT. S/P IVC filter. INR 1.3 Continue coumadin to 2mg Continue heparin suq for dvt px (9) Thrombocytopenia: Mostly due to liver cirrhosis Plt 99 No sign of bleeding Monitor CBC (10) GERD (gastroesophageal reflux disease): Continue H2 landen Hyperglycemia Pt denies any hx of DM Mostly due to solumedrol Hba1c 5.9 Metformin on hold On insulin sliding scale Will add lantus 5 unit BID Monitor BS DVT Prophylaxis -On Coumadin, INR 1.3 heparin SQ Q12H until therapeutic INR Full Code Full code Disposition Possible discharge tomorrow if repeat blood cx showed no growth Subjective Pt was seen and examined Lying in bed with no distress Pt said that his breathing slightly improves Denies any chest pain, palpitation, dizziness and fever Physical Exam Vital Signs (Past 24 Hours): Last Vital Signs Temp 36.7 C 07/16/18 11:37 Pulse 106 H 07/16/18 13:59 Resp 19 07/16/18 13:59 BP 143/69 H 07/16/18 11:37 Pulse Ox 95 07/16/18 13:59 Physical Exam: General- No acute distress Head- atraumatic Eyes- PERRL, EOMI, ENT- oropharynx clear Neck- supple, no JVD Lungs- +mild wheezing Heart- irregular rhythm/tachycardia Abdomen- normal bowel sounds, soft, nontender Extremities- +edema and erythema in RLE Neuro- alert, oriented x 3; PERRL, EOMI; no facial palsy, +tremor B/L UE Skin- warm & dry
[2018-07-16] MEDS: INSULIN GLARGINE SOLOSTAR 100 UNITS/ML 3 ML PEN SC SCH ×2 (15:41→20:57)
[2018-07-16] MEDS: WARFARIN SOD 2 MG TAB PO SCH (15:42)
[2018-07-16] MEDS: DIGOXIN 0.125 MG TAB PO SCH (15:43)
[2018-07-16] MEDS: cefTRIAXone SODIUM 2,000 MG in DEXTROSE 5% 50 ML IV SCH (16:11)
[2018-07-16] MEDS: ZOLPIDEM TARTRATE 5 MG TAB PO PRN (21:04)
[2018-07-17] MEDS: LEVALBUTEROL HCL 0.63 MG/3 ML NEB NEB SCH ×3 (02:10→13:53)
[2018-07-17] MEDS: IPRATROPIUM BROMIDE NEB SOLN 0.02% 2.5 ML VIAL INH SCH ×3 (02:10→13:52)
[2018-07-17 06:49] LABS: INR 1.5 (0.9-1.1); Prothrombin Time 15.1 Seconds (9.0-12.0)
[2018-07-17 07:07] LABS: Creatinine Clr Calc Pharmacy 62.1 ml/min; Est GFR (African American) 74.4; Est GFR (Non-African American) 64.2
[2018-07-17] MEDS: MUPIROCIN 2% OINT 22 GM TUBE EXT SCH ×2 (07:47→22:09)
[2018-07-17] MEDS: FLUTICASONE/SALMETEROL 100/50 (ADVAIR) 14 PUFF/1 INHALER INH SCH ×2 (07:47→22:09)
[2018-07-17] MEDS: FOLIC ACID 1 MG TAB PO SCH (07:48)
[2018-07-17] MEDS: TAMSULOSIN HCL 0.4 MG CAP PO SCH (07:48)
[2018-07-17] MEDS: predniSONE 20 MG TAB PO SCH (07:48)
[2018-07-17] MEDS: INSULIN GLARGINE SOLOSTAR 100 UNITS/ML 3 ML PEN SC SCH (07:48)
[2018-07-17] MEDS: NICOTINE 21 MG/24 HR TDSY TD SCH (07:48)
[2018-07-17] MEDS: CYANOCOBALAMIN 500 MCG TABLET (VITAMIN B-12) PO SCH (07:48)
[2018-07-17] MEDS: INSULIN ASPART 100 UNITS/ML 3 ML PEN SC SCH ×4 (07:49→22:10)
[2018-07-17] MEDS: HEPARIN SOD 5,000 UNIT/0.5 ML VIAL SQ SCH (07:49)
[2018-07-17] MEDS ORDERED: dilTIAZem HCl 60 MG TAB PO ONE (11:00)
[2018-07-17] MEDS: cefTRIAXone SODIUM 2,000 MG in DEXTROSE 5% 50 ML IV SCH (12:29)
--- NOTE | 2018-07-17 16:15 | Infectious Disease Progress Nt ---
Date of Service July 17, 2018 Assessment & Plan (1) Streptococcal bacteremia: 78-year-old male with streptococcal bacteremia with group G strep, likely from his recurrent right lower extremity cellulitis. Patient will continue on IV ceftriaxone as outlined, then consider changing to amoxicillin 500 mg daily for chronic suppressive therapy. (2) Cellulitis of right lower extremity: Subjective Patient seen in follow-up for streptococcal bacteremia and cellulitis. Feeling better, less pain. No fever. Follow-up cultures negative. Review of Systems All systems reviewed & are unremarkable except as noted in HPI & below Physical Exam Vital Signs (Past 24 Hours): Last Vital Signs Temp 36.7 C 07/17/18 15:41 Pulse 111 H 07/17/18 15:41 Resp 20 07/17/18 15:41 BP 152/77 H 07/17/18 15:41 Pulse Ox 92 07/17/18 15:41 Constitutional: WD/WN, vitals as above comfortable; no acute distress Eyes: PERRL, conjunctivae normal, anicteric sclerae ENMT: external ear and nose normal, oropharynx normal Neck: trachea midline, no thyromegaly neck nontender Respiratory: normal respiratory effort, lungs clear to auscultation normal percussion; no respiratory distress Cardiovascular: Rate/Rhythm: regular rate and regular rhythm Heart Sounds: normal S1 and normal S2; no gallop, no murmur and no cardiac rub Gastrointestinal (Abdomen): normal bowel sounds, soft, nontender, no hepatosplenomegaly Musculoskeletal: no cyanosis or clubbing, extremities motor strength 5/5 No spinal tenderness, no joint swelling or erythema Skin: no lesions Erythema right leg improving Neurologic: moves all extremities and awake; no focal motor deficits Motor/Sensory: no sensory deficit Psychiatric: A+Ox3, euthymic affect Lymphatic: no cervical or axillary lymphadenopathy no inguinal lymphadenopathy Results & Data Laboratory Results Laboratory Results - last 48 hr 07/15/18 07/15/18 07/16/18 16:46 20:05 06:44 WBC RBC Hgb Hct MCV MCH MCHC RDW Std Deviation RDW Coeff of Charo Plt Count MPV PT 13.0 H INR 1.3 H Sodium Potassium Chloride Carbon Dioxide Anion Gap BUN Creatinine Est Cr Clr Drug Dosing Est GFR ( Amer) Est GFR (Non-Af Amer) BUN/Creatinine Ratio Glucose POC Glucose 254 H 209 H Estimat Average Glucose Hemoglobin A1c Calcium 07/16/18 07/16/18 07/16/18 06:44 06:44 06:44 WBC 10.37 RBC 2.66 L Hgb 8.7 L Hct 26.4 L MCV 99.2 MCH 32.7 MCHC 33.0 RDW Std Deviation 61.1 H RDW Coeff of Charo 17.1 H Plt Count 99 L MPV 11.0 H PT INR Sodium 138 Potassium 4.3 Chloride 108 H Carbon Dioxide 23 Anion Gap 7.0 BUN 27 H D Creatinine 1.10 Est Cr Clr Drug Dosing 62.7 Est GFR ( Amer) 75.2 Est GFR (Non-Af Amer) 64.9 BUN/Creatinine Ratio 24.7 H Glucose 261 H POC Glucose Estimat Average Glucose 123 Hemoglobin A1c 5.9 H Calcium 8.7 07/16/18 07/16/18 07/16/18 07:30 11:34 11:35 WBC RBC Hgb Hct MCV MCH MCHC RDW Std Deviation RDW Coeff of Charo Plt Count MPV PT INR Sodium Potassium Chloride Carbon Dioxide Anion Gap BUN Creatinine Est Cr Clr Drug Dosing Est GFR ( Amer) Est GFR (Non-Af Amer) BUN/Creatinine Ratio Glucose POC Glucose 283 H 347 H 358 H* Estimat Average Glucose Hemoglobin A1c Calcium 07/16/18 07/16/18 07/17/18 16:46 20:43 06:16 WBC RBC Hgb Hct MCV MCH MCHC RDW Std Deviation RDW Coeff of Charo Plt Count MPV PT 15.1 H INR 1.5 H Sodium Potassium Chloride Carbon Dioxide Anion Gap BUN Creatinine Est Cr Clr Drug Dosing Est GFR ( Amer) Est GFR (Non-Af Amer) BUN/Creatinine Ratio Glucose POC Glucose 274 H 200 H Estimat Average Glucose Hemoglobin A1c Calcium 07/17/18 07/17/18 07/17/18 06:16 07:43 11:28 WBC RBC Hgb Hct MCV MCH MCHC RDW Std Deviation RDW Coeff of Charo Plt Count MPV PT INR Sodium Potassium Chloride Carbon Dioxide Anion Gap BUN Creatinine 1.11 Est Cr Clr Drug Dosing 62.1 Est GFR ( Amer) 74.4 Est GFR (Non-Af Amer) 64.2 BUN/Creatinine Ratio Glucose POC Glucose 231 H 234 H Estimat Average Glucose Hemoglobin A1c Calcium Diagnostic Findings Microbiology 07/15/18 09:48 Blood Blood Culture - Preliminary No growth to date. 07/15/18 09:37 Blood Blood Culture - Preliminary No growth to date. 07/14/18 09:57 Blood Blood Culture - Preliminary Group G Beta Strep 07/14/18 10:00 Blood Blood Culture - Preliminary Group G Beta Strep
[2018-07-17] MEDS: METFORMIN HCL 500 MG TAB PO SCH (16:50)
[2018-07-17] MEDS: DIGOXIN 0.125 MG TAB PO SCH (16:50)
[2018-07-17] MEDS: WARFARIN SOD 2 MG TAB PO SCH (16:50)
--- NOTE | 2018-07-17 17:41 | Hospitalist Progress Note ---
Date of Service July 17, 2018 Assessment & Plan (1) Streptococcal bacteremia: 78-year-old male with streptococcal bacteremia with group G strep, likely from his recurrent right lower extremity cellulitis. Patient will continue on IV ceftriaxone as outlined, then consider changing to Present on admission with fever associated with cough and worsening SOB CXR on admission showed no acute finding was initially on Levaquin and Vancomycin 07/14/18 blood culture streptococcal bacteremia with group G strep 07/15/18: Levaquin and Vancomycin discontinued and started on ceftriaxone daily 07/15/18 blood culture no growth to date will plan on having patient be on ceftriaxone 2 gram daily up to last dose as 07/25/18 which would be 10 days of IV antibiotics from first negative blood cultures, and then Infectious disease consult recommended chronic suppressive therapy with amoxicillin 500 mg daily (07/17/18) however patient refused the peripheral ultrasound guided line for possible outpatient antibiotic back at [facility] (2) Fever: last febrile temperature on 07/14/18 (3) Cellulitis of right lower extremity: Right LE erythema and swelling Doppler of LE showed no acute finding for DVT (4) COPD exacerbation: CXR showed no infiltrate was on solumedrol and now on prednisone 40 mg daily continue advair nebulizer treaments prn for shortness of breath or wheezing on room air (5) Atrial fibrillation: Patient remains on telemetry monitoring as he received addition diltiazem for atrial fibrillation with tachycardia (atrial fibrillation with rapid ventricular response) will plan on continuing diltiazem as 180 mg daily rather than original home dose 120 mg daily Continue digoxin on Coumadin with INR as 1.5, continue coumadin 2 mg daily (6) HTN (hypertension): Stable continue diltiazem home dose lisinopril and furosemide (7) H/O: CVA (cerebrovascular accident): Reports no longer taking aspirin Continue coumadin (8) DVT (deep venous thrombosis): H/O DVT. S/P IVC filter. INR 1.5 Continue coumadin 2 mg daily (9) Thrombocytopenia: Mostly due to liver cirrhosis Plt 99 No sign of bleeding Monitor CBC (10) GERD (gastroesophageal reflux disease): Continue H2 landen Hyperglycemia from steroids de-escalated solumedrol to prednisone resume home dose metformin continue insulin sliding scale stop Lantus as expect insulin requirements will decline with less steroids DVT Prophylaxis -On Coumadin, INR 1.5 heparin SQ Q12H until therapeutic INR Full Code Subjective Patient on telemetry monitoring in atrial fibrillation with tachycardia Patient denies chest pain or palpitations. Patient denies shortness of breath or lightheadedness. 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 But he declined the peripheral ultrasound guided line for possible outpatient antibiotic back at [facility] Patient remains on telemetry monitoring as he received addition diltiazem for atrial fibrillation with tachycardia Physical Exam Vital Signs (Past 24 Hours): Last Vital Signs Temp 36.7 C 07/17/18 15:41 Pulse 116 H 07/17/18 16:50 Resp 20 07/17/18 15:41 BP 152/77 H 07/17/18 15:41 Pulse Ox 92 07/17/18 15:41 Constitutional: WD/WN, vitals as above Eyes: PERRL, conjunctivae normal, anicteric sclerae EOM intact bilaterally ENMT: external ear and nose normal, oropharynx normal Neck: normal visual inspection and trachea midline Respiratory: normal respiratory effort, lungs clear to auscultation Cardiovascular: Rate/Rhythm: + tachycardic (in atrial fibrillation) Gastrointestinal (Abdomen): normal bowel sounds, soft, nontender, no hepatosplenomegaly Musculoskeletal: Head/Neck/Chest: normocephalic and head atraumatic Extremities: + lower extremity abnormal to inspection (erythema of right calf) Neurologic: PERRL, EOMI, accommodation nl, no face palsy, no dysarthria Psychiatric: A+Ox3, euthymic affect
[2018-07-17] MEDS ORDERED: IPRATROPIUM BROMIDE NEB SOLN 0.02% 2.5 ML VIAL INH PRN (17:49)
[2018-07-17] MEDS ORDERED: LEVALBUTEROL HCL 0.63 MG/3 ML NEB NEB PRN (17:49)
[2018-07-17] MEDS: LISINOPRIL 5 MG TAB PO SCH (19:12)
[2018-07-17] MEDS: FUROSEMIDE 80 MG TAB PO SCH (19:12)
[2018-07-17] MEDS ORDERED: HEPARIN SOD 5,000 UNIT/0.5 ML VIAL SQ SCH (21:00)
[2018-07-17] MEDS: ZOLPIDEM TARTRATE 5 MG TAB PO PRN (22:10)
[2018-07-18 06:59] LABS: Basophils # (auto) 0.01 K/uL (0-0.2); Basophils % (auto) 0.1 %; Hematocrit (blood only) 27.8 % (42-52); Hemoglobin 9.3 g/dL (14.0-18.0); Immature Granulocytes # (auto) 0.13 K/uL (0.00-0.02); Immature Granulocytes % (auto) 1.7 %; Lymphocytes # (auto) 1.28 K/uL (1.2-3.4); Lymphocytes % (auto) 16.9 %; Mean Corpuscular Hgb Conc 33.5 g/dL (32-36); Mean Corpuscular Volume 97.9 fL (80-100); Mean Platelet Volume 10.2 fL (7.4-10.4); Monocytes # (auto) 0.89 K/uL (0.11-0.59); Monocytes % (auto) 11.8 %; Neutrophils # (auto) 5.26 K/uL (1.4-6.5); Neutrophils % (auto) 69.5 %; Platelet Count 103 K/uL (130-400); RDW Coefficient of Variation 16.4 % (11.5-14.5); RDW Standard Deviation 58.6 fL (36.4-46.3); Red Blood Count 2.84 M/uL (4.7-6.1); White Blood Count 7.57 K/uL (4.8-10.8)
[2018-07-18 07:18] LABS: Prothrombin Time 19.4 Seconds (9.0-12.0)
[2018-07-18 07:36] LABS: Albumin Globulin Ratio 0.6 (0.9-2); Albumin Level 2.4 gm/dl (3.4-5.0); BUN Creatinine Ratio 31.2 (10-20); Bilirubin,Total 0.6 mg/dl (0.2-1); Creatinine Clr Calc Pharmacy 63.9 ml/min; Est GFR (African American) 76.9; Est GFR (Non-African American) 66.3; Globulin 4.2 gm/dl (2.5-4.0); Potassium 3.6 mmol/L (3.5-5.1); Total Protein 6.6 gm/dl (6.4-8.2)
[2018-07-18] MEDS: FLUTICASONE/SALMETEROL 100/50 (ADVAIR) 14 PUFF/1 INHALER INH SCH ×2 (08:29→20:55)
[2018-07-18] MEDS: MUPIROCIN 2% OINT 22 GM TUBE EXT SCH ×2 (08:29→20:55)
[2018-07-18] MEDS: CYANOCOBALAMIN 500 MCG TABLET (VITAMIN B-12) PO SCH (08:30)
[2018-07-18] MEDS: TAMSULOSIN HCL 0.4 MG CAP PO SCH (08:30)
[2018-07-18] MEDS: predniSONE 20 MG TAB PO SCH (08:31)
[2018-07-18] MEDS: LISINOPRIL 5 MG TAB PO SCH (08:31)
[2018-07-18] MEDS: FUROSEMIDE 80 MG TAB PO SCH (08:31)
[2018-07-18] MEDS: FOLIC ACID 1 MG TAB PO SCH (08:31)
[2018-07-18] MEDS: INSULIN ASPART 100 UNITS/ML 3 ML PEN SC SCH ×4 (08:32→20:58)
[2018-07-18] MEDS: NICOTINE 21 MG/24 HR TDSY TD SCH (08:32)
[2018-07-18] MEDS ORDERED: ALBUT/IPRATROP 3MG/0.5MG NEB 3 ML VIAL NEB STA (09:34)
[2018-07-18] MEDS: CARVEDILOL 3.125 MG TAB PO SCH ×2 (10:59→20:55)
[2018-07-18] MEDS: DIGOXIN 0.125 MG TAB PO SCH (15:39)
[2018-07-18] MEDS: WARFARIN SOD 1 MG TAB PO SCH (15:40)
[2018-07-18] MEDS: METFORMIN HCL 500 MG TAB PO SCH (15:40)
[2018-07-18] MEDS: WARFARIN SOD 0.5 MG TAB PO SCH (15:41)
[2018-07-18] MEDS: cefTRIAXone SODIUM 2,000 MG in DEXTROSE 5% 50 ML IV SCH (15:43)
--- NOTE | 2018-07-18 17:07 | Hospitalist Progress Note ---
Date of Service July 18, 2018 Assessment & Plan (1) Streptococcal bacteremia: 78-year-old male with streptococcal bacteremia with group G strep, likely from his recurrent right lower extremity cellulitis. Patient will continue on IV ceftriaxone as outlined, then consider changing to Present on admission with fever associated with cough and worsening SOB CXR on admission showed no acute finding was initially on Levaquin and Vancomycin 07/14/18 blood culture streptococcal bacteremia with group G strep 07/15/18: Levaquin and Vancomycin discontinued and started on ceftriaxone daily 07/15/18 blood culture no growth to date will plan on having patient be on ceftriaxone 2 gram daily up to last dose as 07/25/18 which would be 10 days of IV antibiotics from first negative blood cultures, and then Infectious disease consult recommended chronic suppressive therapy with amoxicillin 500 mg daily however patient has refused the peripheral ultrasound guided line for possible outpatient antibiotic back at [facility] (2) Fever: last febrile temperature on 07/14/18 (3) Cellulitis of right lower extremity: Right LE erythema and swelling Doppler of LE showed no acute finding for DVT (4) COPD exacerbation: CXR showed no infiltrate was on solumedrol and now on prednisone 40 mg daily continue advair nebulizer treaments prn for shortness of breath or wheezing on room air (5) Atrial fibrillation: Patient remains on telemetry monitoring as he received addition diltiazem for atrial fibrillation with tachycardia (atrial fibrillation with rapid ventricular response) continue diltiazem as 180 mg daily rather than original home dose 120 mg daily have started carvedlilol low dose BID on 07/18/18 Continue digoxin on Coumadin with INR as 2, continue coumadin 1.5 mg daily (6) HTN (hypertension): Stable continue diltiazem continue home dose lisinopril and furosemide new started on carvedilol (7) H/O: CVA (cerebrovascular accident): Reports no longer taking aspirin Continue coumadin (8) DVT (deep venous thrombosis): H/O DVT. S/P IVC filter. on Coumadin with INR as 2, continue coumadin 1.5 mg daily (9) Thrombocytopenia: stable (10) GERD (gastroesophageal reflux disease): Continue H2 landen Hyperglycemia from steroids on daily prednisone for now continue home dose metformin continue insulin sliding scale DVT Prophylaxis on Coumadin with INR as 2, continue coumadin 1.5 mg daily Full Code Subjective Patient on telemetry monitoring in atrial fibrillation with tachycardia (rapid ventricular response) additional carvedilol added to diltiazem regimen patient does not feel palpitations Patient denies chest pain or lightheadedness Patient has continued to decline ultrasound peripheral guided long for short term use of IV antibiotics as outpatient Physical Exam Vital Signs (Past 24 Hours): Last Vital Signs Temp 37.0 C 07/18/18 15:00 Pulse 90 07/18/18 15:39 Resp 20 07/18/18 15:00 BP 117/77 07/18/18 15:00 Pulse Ox 95 07/18/18 15:00 Constitutional: WD/WN, vitals as above Eyes: PERRL, conjunctivae normal, anicteric sclerae EOM intact bilaterally ENMT: external ear and nose normal, oropharynx normal Neck: normal visual inspection and trachea midline Respiratory: normal respiratory effort, lungs clear to auscultation Cardiovascular: Rate/Rhythm: + tachycardic (in atrial fibrillation) Gastrointestinal (Abdomen): normal bowel sounds, soft, nontender, no hepatosplenomegaly Musculoskeletal: Head/Neck/Chest: normocephalic and head atraumatic Extremities: + lower extremity abnormal to inspection (erythema of right calf) Neurologic: PERRL, EOMI, accommodation nl, no face palsy, no dysarthria Psychiatric: A+Ox3, euthymic affect
[2018-07-19 06:27] LABS: INR 2.2 (0.9-1.1); Prothrombin Time 20.9 Seconds (9.0-12.0)
[2018-07-19] MEDS: predniSONE 20 MG TAB PO SCH (08:14)
[2018-07-19] MEDS: FUROSEMIDE 80 MG TAB PO SCH (08:14)
[2018-07-19] MEDS: FOLIC ACID 1 MG TAB PO SCH (08:14)
[2018-07-19] MEDS: CARVEDILOL 3.125 MG TAB PO SCH (08:14)
[2018-07-19] MEDS: LISINOPRIL 5 MG TAB PO SCH (08:14)
[2018-07-19] MEDS: CYANOCOBALAMIN 500 MCG TABLET (VITAMIN B-12) PO SCH (08:15)
[2018-07-19] MEDS: NICOTINE 21 MG/24 HR TDSY TD SCH (08:15)
[2018-07-19] MEDS: MUPIROCIN 2% OINT 22 GM TUBE EXT SCH (08:15)
[2018-07-19] MEDS: FLUTICASONE/SALMETEROL 100/50 (ADVAIR) 14 PUFF/1 INHALER INH SCH (08:15)
[2018-07-19] MEDS: INSULIN ASPART 100 UNITS/ML 3 ML PEN SC SCH ×2 (08:20→12:28)
[2018-07-19] MEDS: TAMSULOSIN HCL 0.4 MG CAP PO SCH (09:13)
[2018-07-19] MEDS: cefTRIAXone SODIUM 2,000 MG in DEXTROSE 5% 50 ML IV SCH (13:48)
--- NOTE | 2018-07-19 14:04 | Hospitalist Progress Note ---
Date of Service July 19, 2018 Assessment & Plan (1) Streptococcal bacteremia: Streptococcal bacteremia as cause of fever, Right Lower extremity Cellulitis 78-year-old male with streptococcal bacteremia with group G strep, likely from his recurrent right lower extremity cellulitis. Patient will continue on IV ceftriaxone as outlined, then consider changing to Present on admission with fever associated with cough and worsening SOB CXR on admission showed no acute finding was initially on Levaquin and Vancomycin 07/14/18 blood culture streptococcal bacteremia with group G strep 07/15/18: Levaquin and Vancomycin discontinued and started on ceftriaxone daily 07/15/18 blood culture no growth to date 07/19/18: patient accepted the peripheral ultrasound guided line Discharge to [facility] with peripheral ultrasound guided line which can be in place to continue IV ceftriaxone 2 gram daily up to last dose as 07/25/18 which would be 10 days of IV antibiotics from first negative blood cultures (If patient loses peripheral ultrasound guided line then alternatively patient can get ceftriaxone intramuscularly or switch to oral amoxicillin 500 mg TID until 07/25/18) Patient will need follow up with primary care doctor at [facility] as the Infectious disease consult physician recommended chronic suppressive therapy with amoxicillin 500 mg daily after the ceftriaxone completion (2) Fever: last febrile temperature on 07/14/18 (3) Cellulitis of right lower extremity: Doppler of LE showed no acute finding for DVT Right lower extremity erythema and swelling has improved (4) COPD exacerbation: COPD exacerbation (history of Tobacco use) CXR showed no infiltrate was on solumedrol and then transitioned to prednisone 40 mg daily breathing has improved and will stop further prednisone upon discharge continue advair Patient also has prescription for nicotine patch (5) Atrial fibrillation: atrial fibrillation with tachycardia (atrial fibrillation with rapid ventricular response) on this hospital stay patient had diltiazem dose increased and started on new medication of carvedilol Patient on telemetry monitoring in atrial fibrillation but heart rate is controlled as of 07/19/18 continue with prescriptions of Diltiazem 180 mg daily and Carvedilol 3.125 mg BID for heart rate control of atrial fibrillation Continue digoxin INR is 2.2 Patient should also have INR checked in 3 days because of increased dose of warfarin as 1.5 mg daily compared to original home dose of 1 mg daily to ensure that INR is at goal between 2 to 3 (6) HTN (hypertension): Stable continue diltiazem continue home dose lisinopril and furosemide new started on carvedilol (7) H/O: CVA (cerebrovascular accident): Reports no longer taking aspirin Continue coumadin (8) DVT (deep venous thrombosis): H/O DVT. S/P IVC filter. anticoagulated with anticoagulation therapy of coumadin INR is 2.2 Patient should also have INR checked in 3 days because of increased dose of warfarin as 1.5 mg daily compared to original home dose of 1 mg daily to ensure that INR is at goal between 2 to 3 (9) Thrombocytopenia: stable (10) GERD (gastroesophageal reflux disease): Continue H2 landen Hyperglycemia from steroids on daily prednisone for now continue home dose metformin continue insulin sliding scale DVT Prophylaxis on Coumadin with INR as 2, continue coumadin 1.5 mg daily Full Code Discharge Diagnosis Streptococcal bacteremia as cause of fever, Right Lower extremity Cellulitis, atrial fibrillation with rapid ventricular response (continues to be in atrial fibrillation (heart rate controlled), anticoagulated with anticoagulation therapy of coumadin, COPD exacerbation (history of Tobacco use) [facility] guided line which can be in place to continue IV ceftriaxone 2 gram daily up to last dose as 07/25/18 which would be 10 days of IV antibiotics from first negative blood cultures (If patient loses peripheral ultrasound guided line then alternatively patient can get ceftriaxone intramuscularly or switch to oral amoxicillin 500 mg TID until 07/25/18) Patient will need follow up with primary care doctor at [facility] as the Infectious disease consult physician recommended chronic suppressive therapy with amoxicillin 500 mg daily after the ceftriaxone completion Patient should also have INR checked in 3 days because of increased dose of warfarin as 1.5 mg daily compared to original home dose of 1 mg daily to ensure that INR is at goal between 2 to 3 Patient also to continue with prescriptions of Diltiazem 180 mg daily and Carvedilol 3.125 mg BID for heart rate control of atrial fibrillation Patient also has prescription for nicotine patch Subjective Patient on telemetry monitoring in atrial fibrillation but heart rate is controlled patient does not feel palpitations Patient denies chest pain or lightheadedness Patient has accepted ultrasound peripheral guided long for short term use of IV antibiotics as outpatient Right lower extremity erythema and swelling has improved Physical Exam Vital Signs (Past 24 Hours): Last Vital Signs Temp 36.5 C 07/19/18 13:42 Pulse 91 H 07/19/18 13:42 Resp 18 07/19/18 13:42 BP 158/73 H 07/19/18 13:42 Pulse Ox 90 07/19/18 13:42 Constitutional: WD/WN, vitals as above Eyes: PERRL, conjunctivae normal, anicteric sclerae EOM intact bilaterally ENMT: external ear and nose normal, oropharynx normal Neck: normal visual inspection and trachea midline Respiratory: normal respiratory effort, lungs clear to auscultation Cardiovascular: Rate/Rhythm: regular rate (in atrial fibrillation) Gastrointestinal (Abdomen): normal bowel sounds, soft, nontender, no hepatosplenomegaly Musculoskeletal: Head/Neck/Chest: normocephalic and head atraumatic Ext remities: + lower leg abnormality (right lower extremity cellulitis has improved) Neurologic: PERRL, EOMI, accommodation nl, no face palsy, no dysarthria Psychiatric: A+Ox3, euthymic affect
--- NOTE | 2018-07-19 14:13 | Discharge Summary ---
Date of Service July 19, 2018 Admission HPI Per Admitting Provider Pt is 78 y/o M with PMH HTN, COPD, A-fib, h/o DVT s/p IVC filter 12/2017, chronic coumadin use, chronic thrombocytopenia, cirrhosis, systolic & diastolic HF, tobacco use presented to ER from [facility] with c/o fever, cough. Pt states has some chronic dry cough however past 3 days with increased cough and today recorded fever of 100F. Pt states today feeling generalized weakness and felt a little dizzy when got out of bed this morning. He denies CP or SOB. Feels like he has had increased wheezing past several days. He reports chronic RLE edema and erythema for past 6 months. Reports others in skilled nursing with URI symptoms also. He states did not take lasix this morning. Denies diaphoresis, N/V/D/C, DUDLEY, syncope, vision changes, neck pain, CP, SOB, orthopnea, palpitations, hemoptysis, sore throat, choking, otalgia, rhinorrhea, abdominal pain, paresthesias, other rashes, urinary symptoms. Pt with hx hospitalization 06/12/18- for R leg cellulitis and COPD exacerbation. Hx echo 10/2017: EF: 45-50%, grade III diastolic dysfunction, moderate-severe mitral regurgitation, severe biatrial enlargement. Admission Exam Per Admitting Provider General: chronic ill appearing male, no acute distress, WDWN Head: normocephalic, atraumatic Eyes: PERRL, EOM's intact, conjunctiva non-injected, anicteric ENT: normal inspection external ears, nose, mucous membranes dry Neck: supple, trachea midline Lungs: clear, no respiratory distress, no wheezing/rhonchi/rales CV: irregularly irregular, rate 102 Abd: normal BS, soft, non-tender Ext: BLE 1+ edema, RLE distal leg with erythema warmth Neuro: A&O x 3, no focal deficits noted, normal affect Skin: warm, dry Principal Diagnosis Streptococcal bacteremia as cause of fever, Right Lower extremity Cellulitis, atrial fibrillation with rapid ventricular response (continues to be in atrial fibrillation (heart rate controlled), anticoagulated with anticoagulation therapy of coumadin, COPD exacerbation (history of Tobacco use) Discharge Exam Constitutional WD/WN, vitals as above Eyes PERRL, conjunctivae normal, anicteric sclerae EOM intact bilaterally ENMT external ear and nose normal, oropharynx normal Neck normal visual inspection and trachea midline Respiratory normal respiratory effort, lungs clear to auscultation Cardiovascular Rate/Rhythm: regular rate (in atrial fibrillation) Gastrointestinal (Abdomen) normal bowel sounds, soft, nontender, no hepatosplenomegaly Musculoskeletal Head/Neck/Chest: normocephalic and head atraumatic Extremities: + lower leg abnormality (right lower extremity cellulitis has improved) Neurologic PERRL, EOMI, accommodation nl, no face palsy, no dysarthria Psychiatric A+Ox3, euthymic affect Discharge Data Allergies Allergy/AdvReac Type Severity Reaction Status Date / Time doxazosin Allergy Intermediate RASH Verified 07/14/18 10:11 prazosin Allergy Unknown [place] Verified 07/14/18 10:11 LIST Consultations 07/14/18 11:31 ED Decision to Admit Stat 07/15/18 07:57 Consult Infectious Diseases Routine Ordered Studies 07/14/18 13:21 US venous doppler LE RT Stat Hospital Course (1) Streptococcal bacteremia: Streptococcal bacteremia as cause of fever, Right Lower extremity Cellulitis 78-year-old male with streptococcal bacteremia with group G strep, likely from his recurrent right lower extremity cellulitis. Patient will continue on IV ceftriaxone as outlined, then consider changing to Present on admission with fever associated with cough and worsening SOB CXR on admission showed no acute finding was initially on Levaquin and Vancomycin 07/14/18 blood culture streptococcal bacteremia with group G strep 07/15/18: Levaquin and Vancomycin discontinued and started on ceftriaxone daily 07/15/18 blood culture no growth to date 07/19/18: patient accepted the peripheral ultrasound guided line [facility] guided line which can be in place to continue IV ceftriaxone 2 gram daily up to last dose as 07/25/18 which would be 10 days of IV antibiotics from first negative blood cultures (If patient loses peripheral ultrasound guided line then alternatively patient can get ceftriaxone intramuscularly or switch to oral amoxicillin 500 mg TID until 07/25/18) Patient will need [facility] as the Infectious disease consult physician recommended chronic suppressive therapy with amoxicillin 500 mg daily after the ceftriaxone completion (2) Fever: last febrile temperature on 07/14/18 (3) Cellulitis of right lower extremity: Doppler of LE showed no acute finding for DVT Right lower extremity erythema and swelling has improved (4) COPD exacerbation: COPD exacerbation (history of Tobacco use) CXR showed no infiltrate was on solumedrol and then transitioned to prednisone 40 mg daily breathing has improved and will stop further prednisone upon discharge continue advair Patient also has prescription for nicotine patch (5) Atrial fibrillation: atrial fibrillation with tachycardia (atrial fibrillation with rapid ventricular response) on this hospital stay patient had diltiazem dose increased and started on new medication of carvedilol Patient on telemetry monitoring in atrial fibrillation but heart rate is controlled as of 07/19/18 continue with prescriptions of Diltiazem 180 mg daily and Carvedilol 3.125 mg BID for heart rate control of atrial fibrillation Continue digoxin INR is 2.2 Patient should also have INR checked in 3 days because of increased dose of warfarin as 1.5 mg daily compared to original home dose of 1 mg daily to ensure that INR is at goal between 2 to 3 (6) HTN (hypertension): Stable continue diltiazem continue home dose lisinopril and furosemide new started on carvedilol (7) H/O: CVA (cerebrovascular accident): Reports no longer taking aspirin Continue coumadin (8) DVT (deep venous thrombosis): H/O DVT. S/P IVC filter. anticoagulated with anticoagulation therapy of coumadin INR is 2.2 Patient should also have INR checked in 3 days because of increased dose of warfarin as 1.5 mg daily compared to original home dose of 1 mg daily to ensure that INR is at goal between 2 to 3 (9) Thrombocytopenia: stable (10) GERD (gastroesophageal reflux disease): Continue H2 landen Hyperglycemia from steroids on daily prednisone for now continue home dose metformin continue insulin sliding scale DVT Prophylaxis on Coumadin with INR as 2, continue coumadin 1.5 mg daily Full Code Discharge Diagnosis Streptococcal bacteremia as cause of fever, Right Lower extremity Cellulitis, atrial fibrillation with rapid ventricular response (continues to be in atrial fibrillation (heart rate controlled), anticoagulated with anticoagulation therapy of coumadin, COPD exacerbation (history of Tobacco use) [facility] with [facility] guided line which can be in place to continue IV ceftriaxone 2 gram daily up to last dose as 07/25/18 which would be 10 days of IV antibiotics from first negative blood cultures (If patient loses peripheral ultrasound guided line then alternatively patient can get ceftriaxone intramuscularly or switch to oral amoxicillin 500 mg TID until 07/25/18) Patient will need follow up with primary care doctor at [facility] as the Infectious disease consult physician recommended chronic suppressive therapy with amoxicillin 500 mg daily after the ceftriaxone completion Patient should also have INR checked in 3 days because of increased dose of warfarin as 1.5 mg daily compared to original home dose of 1 mg daily to ensure that INR is at goal between 2 to 3 Patient also to continue with prescriptions of Diltiazem 180 mg daily and Carve dilol 3.125 mg BID for heart rate control of atrial fibrillation Patient also has prescription for nicotine patch Total Time Total Time Spent Total Time Spent (In Minutes): 40 minutes Total Time Includes: Examination of the Patient, Discharge Planning and Medicati on Reconciliation Discharge Plan Discharge Items Patient Disposition: [facility] Reason For Visit: FEVER, A-FIB Discharge Diagnosis: Streptococcal bacteremia as cause of fever, Right Lower extremity Cellulitis, atrial fibrillation with rapid ventricular response (continues to be in atrial fibrillation (heart rate controlled), anticoagulated with anticoagulation therapy of coumadin, COPD exacerbation (history of Tobacco use) Condition: Good Discharge Goals: Improve disease control Activity: Resume your previous activity Non-emergency contact: Primary Care Provider Call non-emergency contact if: you have any medication questions Follow-up/Referrals: Cortez BOND [Primary Care Provider] - Diet: Carb Consistent or DM2 Addtl Provider Instructions: Discharge to [facility] with peripheral ultrasound guided line which can be in place to continue IV ceftriaxone 2 gram daily up to last dose as 07/25/18 which would be 10 days of IV antibiotics from first negative blood cultures (If patient loses peripheral ultrasound guided line then alternatively patient can get ceftriaxone intramuscularly or switch to oral amoxicillin 500 mg TID until 07/25/18) Patient will need follow up with primary care doctor at [facility] as the Infectious disease consult physician recommended chronic suppressive therapy with amoxicillin 500 mg daily after the ceftriaxone completion Patient should also have INR checked in 3 days because of increased dose of warfarin as 1.5 mg daily compared to original home dose of 1 mg daily to ensure that INR is at goal between 2 to 3 Patient also to continue with prescriptions of Diltiazem 180 mg daily and Carvedilol 3.125 mg BID for heart rate control of atrial fibrillation Patient also has prescription for nicotine patch Prescriptions: New ceftriaxone 2 gram recon soln 2 gm IV DAILY Qty: 10 RF: 0 carvedilol 3.125 mg Tablet 3.125 mg PO BID 30 Days Qty: 60 RF: 0 nicotine [Nicoderm CQ] 21 mg/24 hr Patch 24 Hour 21 mg Transdermal QAM 30 Days Qty: 30 RF: 0 warfarin [Coumadin] 1 mg Tablet 1.5 mg PO DAILY@1600 30 Days Qty: 45 RF: 0 diltiazem HCl 180 mg Capsule,Ext.Rel 24h Degradable 180 mg PO QAM 30 Days Qty: 30 RF: 0 Continued ranitidine HCl 300 mg Tablet 300 mg PO DAILY RF: 0 furosemide [Lasix] 80 mg Tablet 80 mg PO DAILY RF: 0 terbinafine HCl 1 % Cream 1 applic TOPICAL DAILY RF: 0 folic acid 1 mg Tablet 1 mg PO DAILY RF: 0 digoxin 125 mcg Tablet 0.125 mg PO DAILY RF: 0 metformin 500 mg Tablet 500 mg PO HS RF: 0 tamsulosin 0.4 mg Capsule 0.4 mg PO DAILY RF: 0 lisinopril 5 mg Tablet 5 mg PO DAILY RF: 0 cyanocobalamin (vitamin B-12) [Vitamin B-12] 1,000 mcg Tablet 1,000 mcg PO DAILY RF: 0 nitroglycerin [Nitrostat] 0.4 mg Tablet, Sublingual 0.4 mg Sublingual UD PRN (Reason: Chest Pain) RF: 0 fluticasone-salmeterol [Advair Diskus] 100-50 mcg/dose Blister With Device 1 puff INHALATION BID RF: 0 lactulose 10 gram/15 mL Solution 45 ml PO BID PRN (Reason: for 3 bms per day) RF: 0 levalbuterol tartrate [Xopenex HFA] 45 mcg/actuation Hfa Aerosol Inhaler 2 inh INHALATION TID PRN (Reason: Unknown) RF: 0 Discontinued warfarin 1 mg Tablet 1 mg PO HS RF: 0 acetaminophen 500 mg Tablet 500 mg PO TID PRN (Reason: Unknown) RF: 0 diltiazem HCl [DILT-XR] 120 mg Capsule,Ext.Rel 24h Degradable 120 mg PO DAILY RF: 0 Stand-Alone Forms: [facility] Discharge Orders: Discharge Order (Routine); Ordered 07/19/18 Ordered By: Rafael Scott Admission Data Admit Date/Time: 07/14/18 12:27 Attending Provider: Scott,Rafael K Admit Provider: Bonnie Lynn Primary Care Provider: Cortez BOND Other Providers: Maria Alejandra Mayen Service: Telemetry Medical Other Interventions: Discharge Summary Assessment (RN) Last Done: 07/19/18 13:42 Pending Studies at Discharge: No
--- NOTE | 2018-07-19 14:55 | Infectious Disease Progress Nt ---
Date of Service July 19, 2018 Assessment & Plan (1) Streptococcal bacteremia: 78-year-old male with streptococcal bacteremia with group G strep, likely from his recurrent right lower extremity cellulitis. Patient will continue on IV ceftriaxone as outlined, then consider changing to amoxicillin 500 mg daily for chronic suppressive therapy. (2) Cellulitis of right lower extremity: Subjective Patient seen in follow-up for streptococcal bacteremia and cellulitis. Feeling better, less pain. No fever. Follow-up cultures negative. Physical Exam Vital Signs (Past 24 Hours): Last Vital Signs Temp 36.5 C 07/19/18 13:42 Pulse 91 H 07/19/18 13:42 Resp 18 07/19/18 13:42 BP 158/73 H 07/19/18 13:42 Pulse Ox 90 07/19/18 13:42 Constitutional: WD/WN, vitals as above comfortable; no acute distress Eyes: PERRL, conjunctivae normal, anicteric sclerae ENMT: external ear and nose normal, oropharynx normal Neck: trachea midline, no thyromegaly neck nontender Respiratory: normal respiratory effort, lungs clear to auscultation normal percussion; no respiratory distress and does not use accessory muscles Cardiovascular: Rate/Rhythm: regular rate and regular rhythm Heart Sounds: normal S1 and normal S2; no gallop, no murmur and no cardiac rub Vessels: normal peripheral pulses; no JVD Gastrointestinal (Abdomen): normal bowel sounds, soft, nontender, no hepatosplenomegaly Musculoskeletal: no cyanosis or clubbing, extremities motor strength 5/5 Spine: thoracic spine normal to inspection and lumbar spine normal to inspection; no cervical spinal tenderness Skin: no rashes, warm and dry normal turgor; no lesions Neurologic: patellar DTR's 2+ bilat, sensation intact moves all extremities and awake; no focal motor deficits Motor/Sensory: no sensory deficit Psychiatric: A+Ox3, euthymic affect Orientation: cooperative Lymphatic: no cervical or axillary lymphadenopathy no inguinal lymphadenopathy Results & Data Laboratory Results Laboratory Results - last 48 hr 07/17/18 07/17/18 07/18/18 16:36 20:22 06:47 WBC 7.57 RBC 2.84 L Hgb 9.3 L Hct 27.8 L MCV 97.9 MCH 32.7 MCHC 33.5 RDW Std Deviation 58.6 H RDW Coeff of Charo 16.4 H Plt Count 103 L MPV 10.2 Immature Gran % (Auto) 1.7 Neut % (Auto) 69.5 Lymph % (Auto) 16.9 Letcher % (Auto) 11.8 Eos % (Auto) 0.0 Baso % (Auto) 0.1 Immature Gran # (Auto) 0.13 H Neut # (Auto) 5.26 Lymph # (Auto) 1.28 Letcher # (Auto) 0.89 H Eos # (Auto) 0.00 Baso # (Auto) 0.01 PT INR Sodium Potassium Chloride Carbon Dioxide Anion Gap BUN Creatinine Est Cr Clr Drug Dosing Est GFR ( Amer) Est GFR (Non-Af Amer) BUN/Creatinine Ratio Glucose POC Glucose 215 H 238 H Calcium Total Bilirubin AST ALT Alkaline Phosphatase Total Protein Albumin Globulin Albumin/Globulin Ratio 07/18/18 07/18/18 07/18/18 06:47 06:47 07:32 WBC RBC Hgb Hct MCV MCH MCHC RDW Std Deviation RDW Coeff of Charo Plt Count MPV Immature Gran % (Auto) Neut % (Auto) Lymph % (Auto) Letcher % (Auto) Eos % (Auto) Baso % (Auto) Immature Gran # (Auto) Neut # (Auto) Lymph # (Auto) Letcher # (Auto) Eos # (Auto) Baso # (Auto) PT 19.4 H INR 2.0 H Sodium 138 Potassium 3.6 Chloride 104 Carbon Dioxide 28 Anion Gap 6.0 BUN 34 H Creatinine 1.08 Est Cr Clr Drug Dosing 63.9 Est GFR ( Amer) 76.9 Est GFR (Non-Af Amer) 66.3 BUN/Creatinine Ratio 31.2 H Glucose 168 H POC Glucose 171 H Calcium 9.0 Total Bilirubin 0.6 AST 26 ALT 29 Alkaline Phosphatase 94 Total Protein 6.6 Albumin 2.4 L Globulin 4.2 H Albumin/Globulin Ratio 0.6 L 07/18/18 07/18/18 07/18/18 11:34 16:23 20:08 WBC RBC Hgb Hct MCV MCH MCHC RDW Std Deviation RDW Coeff of Charo Plt Count MPV Immature Gran % (Auto) Neut % (Auto) Lymph % (Auto) Letcher % (Auto) Eos % (Auto) Baso % (Auto) Immature Gran # (Auto) Neut # (Auto) Lymph # (Auto) Letcher # (Auto) Eos # (Auto) Baso # (Auto) PT INR Sodium Potassium Chloride Carbon Dioxide Anion Gap BUN Creatinine Est Cr Clr Drug Dosing Est GFR ( Amer) Est GFR (Non-Af Amer) BUN/Creatinine Ratio Glucose POC Glucose 257 H 266 H 123 H Calcium Total Bilirubin AST ALT Alkaline Phosphatase Total Protein Albumin Globulin Albumin/Globulin Ratio 07/19/18 07/19/18 07/19/18 06:05 07:31 11:33 WBC RBC Hgb Hct MCV MCH MCHC RDW Std Deviation RDW Coeff of Charo Plt Count MPV Immature Gran % (Auto) Neut % (Auto) Lymph % (Auto) Letcher % (Auto) Eos % (Auto) Baso % (Auto) Immature Gran # (Auto) Neut # (Auto) Lymph # (Auto) Letcher # (Auto) Eos # (Auto) Baso # (Auto) PT 20.9 H INR 2.2 H Sodium Potassium Chloride Carbon Dioxide Anion Gap BUN Creatinine Est Cr Clr Drug Dosing Est GFR ( Amer) Est GFR (Non-Af Amer) BUN/Creatinine Ratio Glucose POC Glucose 156 H 152 H Calcium Total Bilirubin AST ALT Alkaline Phosphatase Total Protein Albumin Globulin Albumin/Globulin Ratio Diagnostic Findings Microbiology 07/15/18 09:48 Blood Blood Culture - Preliminary No growth to date. 07/15/18 09:37 Blood Blood Culture - Preliminary No growth to date. 07/14/18 09:57 Blood Blood Culture - Preliminary Group G Beta Strep 07/14/18 10:00 Blood Blood Culture - Preliminary Group G Beta Strep
[2018-07-19] MEDS: WARFARIN SOD 1 MG TAB PO SCH (16:20)
[2018-07-19] MEDS: WARFARIN SOD 0.5 MG TAB PO SCH (16:20)
[2018-07-19] MEDS: METFORMIN HCL 500 MG TAB PO SCH (16:20)
[2018-07-19] MEDS: DIGOXIN 0.125 MG TAB PO SCH (16:20)
== END 2018-07-19 17:21 | DRG 603 ==
LOC: ED 09:21 → 2W 12:27 → SUATTDRO 12:27 → 2W 13:00

== ENCOUNTER 2019-06-12 09:14 | Inpatient (IN) ==
[2019-06-12] MEDS ORDERED: SODIUM CHLORIDE 0.9% 1000ML 1,000 ML IV ONE (09:22)
--- NOTE | 2019-06-12 10:03 | CT Scan Report ---
CT head/brain wo con CLINICAL HISTORY: Acute change in mental status COMPARISON STUDY: May 30, 2019 TECHNIQUE: Axial CT of the brain is performed from the vertex to the skull base. IV contrast was not administered for this examination. A dose lowering technique was utilized adhering to the principles of ALARA. CT DOSE: 614.27 mGy.cm FINDINGS: No intra or extra-axial mass lesions are visualized. There is no CT evidence of acute cortical infarc tion. There is no evidence of midline shift. There is no acute hemorrhage. No calvarial fractures ar e visualized. There are patchy white matter hypodensities likely on a small vessel basis. There is no evidence of pathologic ventricular dilatation. There is no evidence of acute sinusitis IMPRESSION: No acute intracranial findings ACT 112: Negative or not required by law. Electronically signed by: Ssear Wang M.D. 06/12/2019 10:02 AM
[2019-06-12 10:10] LABS: Basophils # (auto) 0.07 K/uL (0-0.2); Eosinophils # (auto) 0.13 K/uL (0-0.5); Eosinophils % (auto) 1.9 %; Hematocrit (blood only) 32.8 % (42-52); Immature Granulocytes # (auto) 0.01 K/uL (0.00-0.02); Immature Granulocytes % (auto) 0.1 %; Lymphocytes # (auto) 1.29 K/uL (1.2-3.4); Lymphocytes % (auto) 18.7 %; Mean Corpuscular Hemoglobin 33.2 pg (25-34); Mean Corpuscular Hgb Conc 33.5 g/dL (32-36); Mean Corpuscular Volume 99.1 fL (80-100); Mean Platelet Volume 9.9 fL (7.4-10.4); Monocytes # (auto) 0.57 K/uL (0.11-0.59); Monocytes % (auto) 8.3 %; Neutrophils # (auto) 4.82 K/uL (1.4-6.5); Platelet Count 138 K/uL (130-400); RDW Coefficient of Variation 17.3 % (11.5-14.5); RDW Standard Deviation 62.9 fL (36.4-46.3); Red Blood Count 3.31 M/uL (4.7-6.1); White Blood Count 6.89 K/uL (4.8-10.8)
--- NOTE | 2019-06-12 10:16 | XRay Report ---
XR chest 1V portable HISTORY: 79 years-old Male SEPSIS acute sepsis COMPARISON: Chest radiograph 05/30/2019, CTA chest 12/10/2017 TECHNIQUE: Portable AP view of the chest FINDINGS: Cardiac silhouette is enlarged, unchanged. Pulmonary vascular congestion with slightly progressed mil d interstitial coarsening. There is no pneumothorax, large pleural effusion or new lobar airspace con solidation. Ill-defined bibasilar densities suggest atelectasis. Degenerative changes of the shoulder s and spine. IMPRESSION: 1. Cardiomegaly with pulmonary vascular congestion and slightly progressed interstitial coarsening vang ggestive of mild pulmonary edema. 2. Minimal bibasilar densities suggest probable atelectasis. ACT 112: Negative or not required by law. The above report was generated using voice recognition software. It may contain grammatical, syntax o r spelling errors. Electronically signed by: Avi Chin M.D. 06/12/2019 10:15 AM
[2019-06-12 10:30] LABS: Partial Thromboplastin Ratio 2.9; Prothrombin Time > 90.0 Seconds (9.0-12.0)
[2019-06-12 10:33] LABS: BUN Creatinine Ratio 21.3 (10-20); Calcium 9.5 mg/dl (8.5-10.1); Creatinine Clr Calc Pharmacy 72.2 ml/min; Est GFR (African American) 80.8; Est GFR (Non-African American) 69.7; Magnesium 2.2 mg/dl (1.8-2.4); Potassium 3.5 mmol/L (3.5-5.1)
[2019-06-12 10:38] LABS: Albumin Globulin Ratio 0.7 (0.9-2); Bilirubin,Total 1.3 mg/dl (0.2-1); Creatine Kinase MB 3.9 ng/ml (0.5-3.6); Globulin 4.1 gm/dl (2.5-4.0); Total Protein 7.1 gm/dl (6.4-8.2); Troponin I 0.021 ng/ml (0-0.045)
[2019-06-12 10:40] LABS: INR 10.4 (0.9-1.1)
[2019-06-12 10:41] LABS: Partial Thromboplastin Time 79.3 Seconds (21.0-31.0)
[2019-06-12] MEDS ORDERED: PHYTONADIONE 10 MG in SODIUM CHLORIDE 0.9% 50 ML IV ONE (10:46)
[2019-06-12 13:03] LABS: Appearance Urine Cloudy (Clear); Bacteria Urine Automated 4+ (Negative); Bilirubin Urine Negative (Negative); Blood Urine 3+ (Negative); Color Urine Yellow; Glucose Urine UA Negative (Negative); Ketones Urine Negative (Negative); Leukocyte Esterase Urine Trace (Negative); Nitrite Urine Negative (Negative); Protein Urine Negative (Negative); RBC Urine Automated >30 /hpf (0-4); Specific Gravity Urine 1.017 (1.000-1.030); Urobilinogen Urine Negative (Negative)
--- NOTE | 2019-06-12 13:30 | Gastrointestinal Consultation ---
Date of Consultation June 12, 2019 Assessment & Plan (1) Cirrhosis: 1. Liver US, doppler US to verify patency of hepatic and portal veins. 2. Diagnostic tap with fluid analysis, cell count and culture. 3. After urine cx and blood cx sent, and tap obtained then would go forward with empiric tx of UTI. 4. Gentle hydration. 5. Hold diuretics. 6. Would benefit from eventual EGD. 7. Once able to follow commands, recommend MRI liver for further imaging of the 1.9cm liver lesion found on CT in April. Present on Admission?: Yes (2) Hepatic encephalopathy: 1. Lactulose enemas Q 4hrs. When able to take po, then could change to po. 2. Once more mentally clear can decrease lactulose to 2-3 doses/day and titrate to 3-4 loose BMs/day. Present on Admission?: Yes Supervising Physician Co-Signing Physician Notes Attending attestation Late entry I have seen, examined this patient, and agree with the findings and above by our mid-level provider ADRIANE Craig, with the following additions -saw on the above date, no clear etiology for HE. -Will need cross sectional imaging of liver for liver lesion, MRI preferred History of Present Illness Reason for Consultation: Hepatic Encephalopathy Requesting Physician: Estefani Lopez NP Attending Physician: Dilip Munoz MD History of Present Illness Mr. Good Mcgrath is a 79 yr old male pt/inmate of [facility] with a hx of cirrhosis/CHF, HTN, COPD, A-fib, h/o DVT s/p IVC filter 12/2017, chronic coumadin use, chronic thrombocytopenia, cirrhosis. He is currently being worked up for prostate cancer, MRI is pending to assess a bone lesion that may represent mets. He was recently dx'ed with UTI and a course of Bactrim was prescribed, though pt has some responsibility for his meds and there is a possibility that he may not have taken meds as prescribed. Spoke with Dr. Lizarraga at [facility] who reviewed OP records. No clear cause of cirrhosis. Has been an inmate there since 2018. He has a known dx of cirrhosis and prior hepatic encephalopathy. Furosemide prescribed for heart failure with peripheral edema. He has not had significant ascites in the past. Hep B/C serology at that time (-), so likely ETOH cirrhosis, though no documentation of prior diagnostic tap or serologies. No records of prior EGD and he has not been followed by a gastro/asphalt patcher in the OP setting. Most recent CT with cirrhosis and a 1.9 cm right liver lobe lesion, varices, dilated but patent portal vein, enlarged splen, a 5cm prostate with calcifications. No mention is made of ascites. Pt was sent to [facility] today for confusion. On arrival, T bili 1.3, AST 29, ALT 21, Alk Phos 115, Ammonia 91.4. Imaging is pending. The pt is seen and examined while he is resting in bed and is responsive but does not provide a hx. Allergies Allergy/AdvReac Type Severity Reaction Status Date / Time doxazosin [From Cardura] Allergy Unknown Unknown Unverified 06/12/19 10:19 prazosin [From Minipress] Allergy Unknown Unknown Unverified 06/12/19 10:19 Home Medications Home Medications Medication Instructions Recorded Confirmed Type cyanocobalamin (vitamin B-12) 1,000 mcg PO DAILY 06/12/18 06/12/19 History [Vitamin B-12] digoxin 0.125 mg PO QPM 06/12/18 06/12/19 History folic acid 1 mg PO QAM 06/12/18 06/12/19 History lactulose 45 ml PO BID PRN 06/12/18 06/12/19 History lisinopril 5 mg PO QAM 06/12/18 06/12/19 History metformin 500 mg PO HS 06/12/18 06/12/19 History nitroglycerin [Nitrostat] 0.4 mg SUBLINGUAL UD PRN 06/12/18 06/12/19 History carvedilol 3.125 mg PO BID 12/06/18 06/12/19 History diltiazem HCl 180 mg PO QAM 12/06/18 06/12/19 History furosemide 80 mg PO QAM 02/06/19 06/12/19 History tamsulosin 0.4 mg PO DAILY 02/06/19 06/12/19 History levalbuterol tartrate 45 2 puffs INH QID PRN 04/08/19 06/12/19 History mcg/actuation aerosol inhaler acetaminophen [Tylenol Extra 1,000 mg PO BID PRN 05/30/19 06/12/19 History Strength] aluminum hydrox-magnesium carb 1 tab PO QID PRN 05/30/19 06/12/19 History [Gaviscon Extra Strength] mirtazapine 15 mg PO HS 05/30/19 06/12/19 History pantoprazole 40 mg PO QDB 05/30/19 06/12/19 History warfarin 5 mg PO PM 05/30/19 06/12/19 History fluticasone propion-salmeterol 1 puff INHALATION BID 06/12/19 06/12/19 History [Wixela Inhub] tramadol 50 mg PO BID PRN 06/12/19 06/12/19 History Patient History Medical History Allergic rhinitis Anemia Anxiety Atrial fibrillation (Inactive) Bone lesion BPH (benign prostatic hyperplasia) Cataract Bilateral cataracts - had surgery on both eyes; Chronic back pain Cirrhosis (Inactive) Depressive disorder Diabetes mellitus, type 2 Diastolic dysfunction DVT (deep venous thrombosis) (Resolved) GERD (gastroesophageal reflux disease) H/O: CVA (cerebrovascular accident) HTN (hypertension) Incarcerated umbilical hernia (Resolved) Osteoarthritis Peptic ulcer disease Presence of IVC filter (Chronic) Prostate cancer Sciatica Streptococcal bacteremia Thrombocytopenia (Chronic) Tobacco abuse (Chronic) Tremor Surgical History H/O right knee surgery History of appendectomy History of cataract surgery left. 12/2018. 2mg versed. History of cataract surgery Family History Mother , in her 80s Myocardial infarction Stroke Father , in her 60s Myocardial infarction Sister No problems noted. Sister No problems noted. Sister No problems noted. Son No problems noted. Son No problems noted. Son No problems noted. Son No problems noted. Son No problems noted. Daughter No problems noted. Daughter No problems noted. Daughter No problems noted. Daughter No problems noted. Daughter No problems noted. Daughter Unknown family medical history Other Family history non-contributory Social History Preferred Language: Burmese Communication Ability: Impaired Visual Impairment: No Limitations Hearing Ability: Normal Petrographer Required: No Beliefs That Will Affect Care: None marital status: Single Current Living Situation: Other Current Living Situation Comment: Correctional facility current occupational status: unemployed Other Information That Helps Us Care for You: No Feels Safe at Home: Yes Safety Concerns: Feels Safe At This Time Smoking Status: Current every day smoker Tobacco Type: cigarettes ; Age Started Using Tobacco: 11 ; Cigarettes Per Day: 20 ; Second Hand Exposure: No ; Hx Alcohol Use: No Hx Substance Use: No caffeine: Yes (2 cups/day) during the past year weight has: remained stable Review of Systems Review of Systems: ROS: Generally states, "no man," when asked any questions. Not sure if he is reliable historian. Gen: Denies weakness, fevers, weight loss Eyes: No eye redness, or pain, no recent vision changes Resp: No SOB, no cough Cardio: No palpitations/irregular beats, no chest pain GI: c/o abdominal pain on exam, entire abdomen. : Denies pain on urination, denies hematuria Skin: No jaundice, itching or new rashes NEURO: records show that he was transferred because he had confusion this morning. Physical Exam Constitutional: Drowsy but easily awakens. Able to tell me his name but doesn't answer when asked where he is, what today's date is or why he is here. Eyes: PERRL, conjunctivae normal, anicteric sclerae ENMT: external ear and nose normal, oropharynx normal Neck: trachea midline, no thyromegaly Respiratory: normal respiratory effort, lungs clear to auscultation Cardiovascular: RRR, no murmur, no edema Gastrointestinal (Abdomen): Inspection/Auscultation: abdomen not distended Percussion/Palpation: + abdomen tender (over entire abdomen) and abdomen soft no obvious ascites Skin: + spider angiomas on the chest Neurologic: PERRL, EOMI, accommodation nl, no face palsy, no dysarthria 2 + beats of asterixis. Psychiatric: Slow mentation and speech. Drowsy, but arousable. Lymphatic: no cervical or axillary lymphadenopathy Results & Data Vital Signs (Past 12 Hours) Vital Signs Temp Pulse Pulse Resp BP BP Pulse Ox 06/12/19 13:08 36.4 C L 83 19 172/87 H 100 06/12/19 12:34 82 14 159/101 H 100 06/12/19 12:00 92 H 18 99 06/12/19 11:45 93 H 22 163/98 H 99 06/12/19 11:40 88 17 167/94 H 100 06/12/19 11:30 103 H 22 183/106 H 99 06/12/19 11:15 89 15 166/92 H 99 06/12/19 11:00 91 H 16 169/94 H 100 06/12/19 10:45 90 15 179/98 H 100 06/12/19 10:30 87 13 153/88 H 99 06/12/19 10:15 83 16 157/84 H 100 06/12/19 10:01 94 H 14 166/100 H 100 06/12/19 09:49 91 H 17 158/97 H 100 06/12/19 09:45 99 06/12/19 09:26 36.3 C L 91 H 14 177/92 H 99
[2019-06-12] MEDS ORDERED: DEXTROSE 50% 50 ML SYRINGE IV PRN (13:35)
[2019-06-12] MEDS ORDERED: GLUCAGON FOR INJ 1 MG VIAL SQ PRN (13:35)
[2019-06-12] MEDS ORDERED: GLUCOSE 40% GEL 15 GM TUBE PO PRN (13:35)
[2019-06-12] MEDS ORDERED: GLUCOSE 10 TABS/TUBE PO PRN (13:35)
[2019-06-12] MEDS ORDERED: CARBOHYDRATES FOR HYPOGLYCEMIA PO PRN (13:35)
[2019-06-12] MEDS ORDERED: UNIT DOSE COMPOUND PR SCH (14:00)
[2019-06-12] MEDS ORDERED: LACTULOSE 200 GM, WATER, STERILE IRRIG 700 ML, BARCODE IDENTIFIER 1 EA PR SCH (14:00)
--- NOTE | 2019-06-12 14:30 | History & Physical Report ---
Date of Service June 12, 2019 Assessment & Plan (1) Hepatic encephalopathy: (2) Cirrhosis: -Admit to telemetry -Patient presenting from [facility] for evaluation of altered mental status that began this morning -In the ED, found to have ammonia level 91.4 -History of cirrhosis however no documented history of prior ascites or esophageal varices -Typically uses lactulose on a as needed basis -Patient seen in the ED on 05/30 and diagnosed with ESBL E. coli UTI, this may be contributing patient's encephalopathy today -Due to decreased mental status, will use lactulose enemas -N.p.o. until mentation improves -Head CT negative for acute findings -Has some abdominal tenderness on exam however no leukocytosis, fever -GI consult, case discussed with ADRIANE Mclain -Liver ultrasound and portal vein Doppler ordered (3) UTI due to extended-spectrum beta lactamase (ESBL) producing Escherichia coli: -Urine culture from 05/30 showed ESBL producing E. coli -Patient initially placed on Cipro however when culture resulted, was changed to p.o. Macrobid -UA suggest possible ongoing infection -Discussed with pharmacy, carbapenems are preferred choice of treatment for ESBL; ertapenem started -Repeat urine culture (4) Atrial fibrillation: (5) Supratherapeutic INR: -Rate controlled on beta-landen and digoxin, will continue -Anticoagulated on Coumadin, INR 10.4; INR increased possibly secondary to recent use of antibiotics -No signs of bleeding -Received vitamin K 10 mg IV in the ED -Recheck INR this evening and follow daily, resuming Coumadin when appropriate (6) Bone lesion: (7) Prostate cancer: -Recent diagnosis -Follows with [facility] urology -Had bone scan performed questioning lumbar spine lesion, needs MRI follow-up (8) History of DVT (deep vein thrombosis): -Coumadin as above (9) Diastolic dysfunction: -Appears euvolemic on exam, continue furosemide (10) Diabetes mellitus, type 2: -Hgb A1c 5.01/2019 -Hold metformin and utilize NovoLog per protocol while hospitalized (11) BPH (benign prostatic hyperplasia): -Continue tamsulosin (12) GERD (gastroesophageal reflux disease): -Continue PPI (13) DVT prophylaxis: -Anticoagulated on Coumadin with supratherapeutic INR, no further prophylaxis needed at this time History of Present Illness Chief Complaint: Altered mental status Primary Care Provider: RONDA Toro 79-year-old male who was brought to the ED from [facility] for evaluation of altered mental status. Patient was seen in the ED on 05/30 for episodic confusion and diagnosed with UTI. Patient was initially discharged on Cipro however urine culture grew ESBL E. coli and antibiotic was changed to Macrobid. This morning, patient was found in his cell and he was very confused and le thargic. Patient was then brought to the ED for further evaluation. No further history can be obtained from the patient due to his mental status. I discussed the case with the [facility] and they report that the patient typically is compliant with his medications. There were no other symptoms reported. In the ED, ammonia level is found to be 91. INR 10.4. UA suggest possible ongoing infection with trace leuk esterase and 4+ bacteria. Head CT is negative for acute findings. Patient was given IVF and vitamin K 10 mg IV. Allergies Allergy/AdvReac Type Severity Reaction Status Date / Time doxazosin [From Cardura] Allergy Unknown Unknown Unverified 06/12/19 10:19 prazosin [From Minipress] Allergy Unknown Unknown Unverified 06/12/19 10:19 Home Medications Home Medications Medication Instructions Recorded Confirmed Type cyanocobalamin (vitamin B-12) 1,000 mcg PO DAILY 06/12/18 06/12/19 History [Vitamin B-12] digoxin 0.125 mg PO QPM 06/12/18 06/12/19 History folic acid 1 mg PO QAM 06/12/18 06/12/19 History lactulose 45 ml PO BID PRN 06/12/18 06/12/19 History lisinopril 5 mg PO QAM 06/12/18 06/12/19 History metformin 500 mg PO HS 06/12/18 06/12/19 History nitroglycerin [Nitrostat] 0.4 mg SUBLINGUAL UD PRN 06/12/18 06/12/19 History carvedilol 3.125 mg PO BID 12/06/18 06/12/19 History diltiazem HCl 180 mg PO QAM 12/06/18 06/12/19 History furosemide 80 mg PO QAM 02/06/19 06/12/19 History tamsulosin 0.4 mg PO DAILY 02/06/19 06/12/19 History levalbuterol tartrate 45 2 puffs INH QID PRN 04/08/19 06/12/19 History mcg/actuation aerosol inhaler acetaminophen [Tylenol Extra 1,000 mg PO BID PRN 05/30/19 06/12/19 History Strength] aluminum hydrox-magnesium carb 1 tab PO QID PRN 05/30/19 06/12/19 History [Gaviscon Extra Strength] mirtazapine 15 mg PO HS 05/30/19 06/12/19 History pantoprazole 40 mg PO QDB 05/30/19 06/12/19 History warfarin 5 mg PO PM 05/30/19 06/12/19 History fluticasone propion-salmeterol 1 puff INHALATION BID 06/12/19 06/12/19 History [Wixela Inhub] tramadol 50 mg PO BID PRN 06/12/19 06/12/19 History Past Med/Surg History Medical History Allergic rhinitis Anemia Anxiety Atrial fibrillation (Inactive) Bone lesion BPH (benign prostatic hyperplasia) Cataract Bilateral cataracts - had surgery on both eyes; Chronic back pain Cirrhosis (Inactive) Depressive disorder Diabetes mellitus, type 2 Diastolic dysfunction DVT (deep venous thrombosis) (Resolved) GERD (gastroesophageal reflux disease) H/O: CVA (cerebrovascular accident) HTN (hypertension) Incarcerated umbilical hernia (Resolved) Osteoarthritis Peptic ulcer disease Presence of IVC filter (Chronic) Prostate cancer Sciatica Streptococcal bacteremia Thrombocytopenia (Chronic) Tobacco abuse (Chronic) Tremor Surgical History H/O right knee surgery History of appendectomy History of cataract surgery left. 12/2018. 2mg versed. History of cataract surgery Family History Mother , in her 80s Myocardial infarction Stroke Father , in her 60s Myocardial infarction Sister No problems noted. Sister No problems noted. Sister No problems noted. Son No problems noted. Son No problems noted. Son No problems noted. Son No problems noted. Son No problems noted. Daughter No problems noted. Daughter No problems noted. Daughter No problems noted. Daughter No problems noted. Daughter No problems noted. 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 Beliefs That Will Affect Care: None marital status: Single Current Living Situation: Other Current Living Situation Comment: Correctional facility current occupational status: unemployed Other Information That Helps Us Care for You: No Feels Safe at Home: Yes Safety Concerns: Feels Safe At This Time Smoking Status: Current every day smoker Tobacco Type: cigarettes ; Age Started Using Tobacco: 11 ; Cigarettes Per Day: 20 ; Second Hand Exposure: No ; Hx Alcohol Use: No Hx Substance Use: No caffeine: Yes (2 cups/day) during the past year weight has: remained stable Review of Systems Review of Systems: Unobtainable due to reduced consciousness Physical Exam Constitutional: WD/WN, vitals as above Eyes: PERRL, conjunctivae normal, anicteric sclerae ENMT: external ear and nose normal, oropharynx normal Respiratory: normal respiratory effort, lungs clear to auscultation Cardiovascular: Rate/Rhythm: regular rate and + irregularly irregular Vessels: normal peripheral pulses Extremities: no edema Gastrointestinal (Abdomen): Inspection/Auscultation: normal bowel sounds Percussion/Palpation: + abdomen tender and abdomen soft; no hepatosplenomegaly Musculoskeletal: no cyanosis or clubbing, extremities motor strength 5/5 Skin: no rashes, warm and dry Neurologic: PERRL, EOMI, accommodation nl, no face palsy, no dysarthria + not awake (Lethargic, does arouse to verbal stimuli however falls back to sleep quickly during exam) Does not follow commands however no gross focal deficit noted on exam Psychiatric: Orientation: + not alert and + not oriented x 3 (answers "yes ma'am" to several questions asked) Results & Data Vital Signs (Past 12 Hours) Vital Signs Temp Pulse Pulse Resp BP BP Pulse Ox 06/12/19 13:08 36.4 C L 83 19 172/87 H 100 06/12/19 12:34 82 14 159/101 H 100 06/12/19 12:00 92 H 18 99 06/12/19 11:45 93 H 22 163/98 H 99 06/12/19 11:40 88 17 167/94 H 100 06/12/19 11:30 103 H 22 183/106 H 99 06/12/19 11:15 89 15 166/92 H 99 06/12/19 11:00 91 H 16 169/94 H 100 06/12/19 10:45 90 15 179/98 H 100 06/12/19 10:30 87 13 153/88 H 99 06/12/19 10:15 83 16 157/84 H 100 06/12/19 10:01 94 H 14 166/100 H 100 06/12/19 09:49 91 H 17 158/97 H 100 06/12/19 09:45 99 06/12/19 09:26 36.3 C L 91 H 14 177/92 H 99 Laboratory Results Short CBC 06/12/19 Range/Units 09:48 WBC 6.89 (4.8-10.8) K/uL Hgb 11.0 L (14.0-18.0) g/dL Hct 32.8 L (42-52) % Plt Count 138 (130-400) K/uL BMP 06/12/19 09:48 Sodium 144 Potassium 3.5 Chloride 112 H Carbon Dioxide 27 BUN 22 H Creatinine 1.03 Glucose 167 H Calcium 9.5 Cardiac Enzymes 06/12/19 Range/Units 09:48 Total Creatine Kinase 87 (39-308) U/L CK-MB (CK-2) 3.9 H (0.5-3.6) ng/ml Troponin I 0.021 (0-0.045) ng/ml Liver Function 06/12/19 Range/Units 09:48 Total Bilirubin 1.3 H (0.2-1) mg/dl AST 29 (15-37) U/L ALT 21 (12-78) U/L Alkaline Phosphatase 115 (45-117) U/L Albumin 3.0 L (3.4-5.0) gm/dl Urine 06/12/19 Range/Units 12:50 Urine Color Yellow Urine Appearance Cloudy A (Clear) Urine pH 7.0 (4.5-7.5) Ur Specific [place] 1.017 (1.000-1.030) Urine Protein Negative (Negative) Urine Glucose (UA) Negative (Negative) Diagnostic Findings HEAD CT IMPRESSION: No acute intracranial findings CXR IMPRESSION: 1. Cardiomegaly with pulmonary vascular congestion and slightly progressed interstitial coarsening suggestive of mild pulmonary edema. 2. Minimal bibasilar densities suggest probable atelectasis. Code Status & VTE Plan VTE Prophylaxis Plan VTE Prophylaxis will be ordered: No Supervising Physician Co-Signing Physician Notes Attending addendum Patient is seen and examined in the emergency room He was brought in with acute confusion with questionable abdominal pain He was noted to be pleasantly confused during examination and complained to have some pain in the right upper quadrant Denies any chest pain, shortness of breath, palpitation or any problem with urine and bowel habit On examination Lying in bed with acute distress secondary to pain and discomfort Afebrile and blood pressure noted to be high at 177/85 Chest-clear to auscultate bilaterally Heart-S1-S2, regular Abdomen-soft, not distended, mildly tender right upper quadrant without any guarding and rigidity Extremities negative for any edema 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 Confused. Responding minimally to vocal commands. Moving all extremities without any focal neuro deficit Admission labs and imaging studies reviewed History of cirrhosis with possible syncopal apathy No ascites and/or portal vein obstruction on ultrasound Recently treated ESBL and will await urine culture sensitivity Has supratherapeutic INR with A. fib and history of prostate cancer Agree with assessment and plan as outlined above by Estefani Munoz
[2019-06-12] MEDS ORDERED: ERTAPENEM CONSULT ACTIVE SCH (14:58)
--- NOTE | 2019-06-12 15:36 | Emergency Department Note ---
Entered by Cyndi Sanchez acting as a scribe for Dennis Valdez MD History of Present Illness General Chief complaint: Altered Mental Status Time Seen by Provider: 06/12/19 09:15 Source: EMS Mode of arrival: EMS Limitations: altered mental status History of Present Illness Onset (ago): hour(s) (this morning) Location: head (AMS) Severity: severe Pain Consistency: + other (sudden) Quality: + other (AMS) Associated symptoms: + weakness and + other (AMS. ) Treatments prior to arrival: none The patient is a 79 year old male presenting to the Emergency Department via EMS complaining of sudden altered mental status starting X. EMS reports that the patient resides in a correctional facility and was found to be severely weak and altered. They explain that the patient woke up this morning and correctional officers noticed that the patient was altered so they took him to the [facility]. They states while at the [facility] the patients alleged temperature was 88.0F and then EMS was called. They note that the patient was recently in the hospital about 1 week ago, was diagnosed with a UTI and prescribed Cipro that was eventually switched to Bactrim. They add that the patient didnt received any medications for his symptoms [employer]. EMS reports that the patient hasnt been complaining of any pain. They note that the patient regularly takes blood thinners. The HPI and ROS are limited due to AMS. Home Medications Home Medications Medication Instructions Recorded Confirmed Type cyanocobalamin (vitamin B-12) 1,000 mcg PO DAILY 06/12/18 06/12/19 History [Vitamin B-12] digoxin 0.125 mg PO QPM 06/12/18 06/12/19 History folic acid 1 mg PO QAM 06/12/18 06/12/19 History lactulose 45 ml PO BID PRN 06/12/18 06/12/19 History lisinopril 5 mg PO QAM 06/12/18 06/12/19 History metformin 500 mg PO HS 06/12/18 06/12/19 History nitroglycerin [Nitrostat] 0.4 mg SUBLINGUAL UD PRN 06/12/18 06/12/19 History carvedilol 3.125 mg PO BID 12/06/18 06/12/19 History diltiazem HCl 180 mg PO QAM 12/06/18 06/12/19 History furosemide 80 mg PO QAM 02/06/19 06/12/19 History tamsulosin 0.4 mg PO DAILY 02/06/19 06/12/19 History levalbuterol tartrate 45 2 puffs INH QID PRN 04/08/19 06/12/19 History mcg/actuation aerosol inhaler acetaminophen [Tylenol Extra 1,000 mg PO BID PRN 05/30/19 06/12/19 History Strength] aluminum hydrox-magnesium carb 1 tab PO QID PRN 05/30/19 06/12/19 History [Gaviscon Extra Strength] mirtazapine 15 mg PO HS 05/30/19 06/12/19 History pantoprazole 40 mg PO QDB 05/30/19 06/12/19 History warfarin 5 mg PO PM 05/30/19 06/12/19 History fluticasone propion-salmeterol 1 puff INHALATION BID 06/12/19 06/12/19 History [Wixela Inhub] tramadol 50 mg PO BID PRN 06/12/19 06/12/19 History ertapenem 1 gm IV DAILY #10 ea 06/14/19 Rx Allergies Allergy/AdvReac Type Severity Reaction Status Date / Time doxazosin [From Cardura] Allergy Unknown Unknown Unverified 06/12/19 10:19 prazosin [From Minipress] Allergy Unknown Unknown Unverified 06/12/19 10:19 Past Med/Surg History Medical History Allergic rhinitis Anemia Anxiety Atrial fibrillation (Inactive) Bone lesion BPH (benign prostatic hyperplasia) Cataract Bilateral cataracts - had surgery on both eyes; Chronic back pain Cirrhosis (Inactive) Depressive disorder Diabetes mellitus, type 2 Diastolic dysfunction DVT (deep venous thrombosis) (Resolved) GERD (gastroesophageal reflux disease) H/O: CVA (cerebrovascular accident) HTN (hypertension) Incarcerated umbilical hernia (Resolved) Osteoarthritis Peptic ulcer disease Presence of IVC filter (Chronic) Prostate cancer Sciatica Streptococcal bacteremia Thrombocytopenia (Chronic) Tobacco abuse (Chronic) Tremor Surgical History H/O right knee surgery History of appendectomy History of cataract surgery left. 12/2018. 2mg versed. History of cataract surgery Family History Mother , in her 80s Myocardial infarction Stroke Father , in her 60s Myocardial infarction Sister No problems noted. Sister No problems noted. Sister No problems noted. Son No problems noted. Son No problems noted. Son No problems noted. Son No problems noted. Son No problems noted. Daughter No problems noted. Daughter No problems noted. Daughter No problems noted. Daughter No problems noted. Daughter No problems noted. Daughter Unknown family medical history Other Family history non-contributory Social History Preferred Language: Polish Communication Ability: Impaired Visual Impairment: No Limitations Hearing Ability: Normal Rn Oncology Clinical Required: No Beliefs That Will Affect Care: None marital status: Single Current Living Situation: Other Current Living Situation Comment: Correctional facility current occupational status: unemployed Other Information That Helps Us Care for You: No Feels Safe at Home: Yes Safety Concerns: Feels Safe At This Time Smoking Status: Current every day smoker Tobacco Type: cigarettes ; Age Started Using Tobacco: 11 ; Cigarettes Per Day: 20 ; Second Hand Exposure: No ; Hx Alcohol Use: No Hx Substance Use: No caffeine: Yes (2 cups/day) during the past year weight has: remained stable Review of Systems The HPI and ROS are limited due to AMS. Physical Exam Vital Signs Vital Signs - 24 hr 06/12/19 09:26 06/12/19 09:45 06/12/19 09:49 Temperature 36.3 C L Temperature Source Oral Pulse Rate 91 H 91 H Pulse Rate from SpO2 Sensor 85 Respiratory Rate 14 17 Blood Pressure 177/92 H 158/97 H Blood Pressure Mean 120 129 Pulse Oximetry 99 99 100 Oxygen Delivery Method Room Air Room Air Sepsis Recent Fever Within 48 Hours No Sepsis New/Unexplained Change in Mental Status No Sepsis Action Taken by Nursing No Action Required 06/12/19 10:01 06/12/19 10:15 06/12/19 10:30 Temperature Temperature Source Pulse Rate 94 H 83 87 Pulse Rate from SpO2 Sensor 90 87 87 Respiratory Rate 14 16 13 Blood Pressure 166/100 H 157/84 H 153/88 H Blood Pressure Mean 137 125 96 Pulse Oximetry 100 100 99 Oxygen Delivery Method Room Air Room Air Room Air Sepsis Recent Fever Within 48 Hours Sepsis New/Unexplained Change in Mental Status Sepsis Action Taken by Nursing 06/12/19 10:45 06/12/19 11:00 06/12/19 11:15 Temperature Temperature Source Pulse Rate 90 91 H 89 Pulse Rate from SpO2 Sensor 90 88 90 Respiratory Rate 15 16 15 Blood Pressure 179/98 H 169/94 H 166/92 H Blood Pressure Mean 142 118 119 Pulse Oximetry 100 100 99 Oxygen Delivery Method Room Air Sepsis Recent Fever Within 48 Hours Sepsis New/Unexplained Change in Mental Status Sepsis Action Taken by Nursing 06/12/19 11:30 06/12/19 11:40 Temperature Temperature Source Pulse Rate 103 H 88 Pulse Rate from SpO2 Sensor 91 H 94 H Respiratory Rate 22 17 Blood Pressure 183/106 H 167/94 H Blood Pressure Mean 112 97 Pulse Oximetry 99 100 Oxygen Delivery Method Sepsis Recent Fever Within 48 Hours Sepsis New/Unexplained Change in Mental Status Sepsis Action Taken by Nursing GENERAL: Patient moans to painful stimuli. HENT: Normocephalic, atraumatic. Oropharynx unremarkable. EYES: Normal conjunctiva. Sclera non-icteric. NECK: Supple. No nuchal rigidity. FROM. No JVD. RESPIRATORY: Clear to auscultation. CARDIAC: Regular rate, normal rhythm. Extremities warm and well perfused. Pulses equal. ABDOMEN: Soft, non-distended. No tenderness to palpation. No rebound or guarding. No masses. RECTAL: Deferred. MUSCULOSKELETAL: Chest examination reveals no tenderness. The back is symmetrical on inspection without obvious abnormality. There is no CVA tenderness to palpation. No joint edema. LOWER EXTREMITIES: Calves are equal size bilaterally and non-tender. No edema. No discoloration. NEURO: Normal sensorium. No sensory or motor deficits noted. SKIN: No rash or jaundice noted. Course Course 0915: The patient was evaluated in room B1, and a complete history and physical examination were performed. 0948: I reevaluated the patient at this time. 1044: I discussed the patients case with Gail Medina PA-C. Dr. Alexander Leonard hospitalist will evaluate the patient for further management. Administered Medications Acetaminophen (Tylenol) 500 mg PO Q6H [facility] Stop: 07/15/19 11:59 Last Admin: 06/16/19 23:28 Dose: 500 mg Documented by: [id number] Admin: 06/16/19 17:13 Dose: 500 mg Documented by: [id number] Admin: 06/16/19 12:34 Dose: 500 mg Documented by: [id number] Admin: 06/16/19 05:17 Dose: 500 mg Documented by: [id number] Admin: 06/16/19 01:37 Dose: 500 mg Documented by: [id number] Admin: 06/15/19 17:22 Dose: 500 mg Documented by: [id number] Admin: 06/15/19 16:19 Dose: Not Given Documented by: [id number] Carvedilol (Coreg) 3.125 mg PO BID [facility] Stop: 07/12/19 20:59 Last Admin: 06/16/19 20:28 Dose: Not Given Documented by: [id number] Admin: 06/16/19 08:36 Dose: Not Given Documented by: [id number] Admin: 06/15/19 20:24 Dose: Not Given Documented by: [id number] Admin: 06/15/19 07:57 Dose: 3.125 mg Documented by: [id number] Admin: 06/14/19 20:33 Dose: 3.125 mg Documented by: [id number] Admin: 06/14/19 09:02 Dose: 3.125 mg Documented by: [id number] Admin: 06/13/19 21:23 Dose: 3.125 mg Documented by: [id number] Admin: 06/13/19 07:55 Dose: 3.125 mg Documented by: [id number] Admin: 06/12/19 20:45 Dose: 3.125 mg Documented by: [id number] Cyanocobalamin (Vitamin B-12) 1,000 mcg PO DAILY [facility] Stop: 07/13/19 08:59 Last Admin: 06/16/19 08:39 Dose: 1,000 mcg Documented by: [id number] Admin: 06/15/19 07:56 Dose: 1,000 mcg Documented by: [id number] Admin: 06/14/19 09:02 Dose: 1,000 mcg Documented by: [id number] Admin: 06/13/19 07:57 Dose: 1,000 mcg Documented by: [id number] Diclofenac Sodium (Voltaren 1% Top) 2 gm EXT BID PRN PRN Reason: knee pain Stop: 07/14/19 10:44 Last Admin: 06/15/19 07:56 Dose: 2 gm Documented by: [id number] Admin: 06/14/19 12:22 Dose: 2 gm Documented by: [id number] Digoxin (Lanoxin) 0.125 mg PO Q24H [facility] Stop: 07/12/19 15:59 Last Admin: 06/16/19 16:25 Dose: 0.125 mg Documented by: [id number] Admin: 06/15/19 17:29 Dose: 0.125 mg Documented by: [id number] Admin: 06/14/19 16:56 Dose: 0.125 mg Documented by: [id number] Admin: 06/13/19 16:59 Dose: 0.125 mg Documented by: [id number] Admin: 06/12/19 16:19 Dose: 0.125 mg Documented by: [id number] [facility] Cd) [facility] [place]: 07/13/19 08:59 Last Admin: 06/16/19 08:35 Dose: Not Given Documented by: [id number] Admin: 06/15/19 07:56 Dose: 180 mg Documented by: [id number] Admin: 06/14/19 09:02 Dose: 180 mg Documented by: [id number] Admin: 06/13/19 07:58 Dose: 180 mg Documented by: [id number] Fluticasone/Vilanterol (Breo Ellipta 100/25 Mcg Inh) 1 puffs INH QPM [facility] Stop: 07/12/19 20:59 Last Admin: 06/16/19 20:26 Dose: 1 puffs Documented by: [id number] Admin: 06/15/19 20:23 Dose: 1 puffs Documented by: [id number] Admin: 06/14/19 20:31 Dose: 1 puffs Documented by: [id number] Admin: 06/13/19 21:20 Dose: 1 puffs Documented by: [id number] Admin: 06/12/19 20:46 Dose: 1 puffs Documented by: [id number] Folic Acid (Folvite) [facility] [place]: 07/13/19 08:59 Last Admin: 06/16/19 08:39 Dose: 1 mg Documented by: [id number] Admin: 06/15/19 07:56 Dose: 1 mg Documented by: [id number] Admin: 06/14/19 09:02 Dose: 1 mg Documented by: [id number] Admin: 06/13/19 07:57 Dose: 1 mg Documented by: [id number] [facility]urosemide (Lasix) [facility] [place]: 07/13/19 08:59 Last Admin: 06/15/19 07:56 Dose: 80 mg Documented by: [id number] Admin: 06/14/19 09:01 Dose: 80 mg Documented by: [id number] Admin: 06/13/19 07:55 Dose: 80 mg Documented by: [id number] Ertapenem 1,000 mg/ Sodium (Chloride) 60 mls @ 100 mls/hr IV Q24H [facility] Stop: 06/22/19 15:29 Last Infusion: 06/16/19 16:58 Dose: 0 mls/hr Documented by: [id number] Admin: 06/16/19 16:24 Dose: 100 mls/hr Documented by: [id number] Infusion: 06/15/19 16:36 Dose: 0 mls/hr Documented by: [id number] Admin: 06/15/19 16:00 Dose: 100 mls/hr Documented by: [id number] Infusion: 06/14/19 17:50 Dose: 0 mls/hr Documented by: [id number] Admin: 06/14/19 16:54 Dose: 100 mls/hr Documented by: [id number] Infusion: 06/13/19 16:20 Dose: 0 mls/hr Documented by: [id number] Admin: 06/13/19 15:47 Dose: 100 mls/hr Documented by: [id number] Infusion: 06/12/19 17:03 Dose: 0 mls/hr Documented by: [id number] Admin: 06/12/19 16:15 Dose: 100 mls/hr Documented by: [id number] Insulin Aspart (Novolog Flexpen) 0 units SC ACHS [facility] Stop: 07/12/19 17:59 Last Admin: 06/16/19 20:54 Dose: 2 units Documented by: [id number] Cosigned by: [id number] Admin: 06/16/19 17:14 Dose: 4 units Documented by: [id number] Cosigned by: [id number] Admin: 06/16/19 12:35 Dose: 2 units Documented by: [id number] Cosigned by: [id number] Admin: 06/16/19 08:40 Dose: 3 units Documented by: [id number] Cosigned by: [id number] Admin: 06/15/19 21:15 Dose: Not Given Documented by: [id number] Cosigned by: [id number] Admin: 06/15/19 17:22 Dose: 4 units Documented by: [id number] Cosigned by: [id number] Admin: 06/15/19 12:29 Dose: 6 units Documented by: [id number] Cosigned by: [id number] Admin: 06/15/19 08:04 Dose: 4 units Documented by: [id number] Cosigned by: [id number] Admin: 06/14/19 20:36 Dose: Not Given Documented by: [id number] Cosigned by: [id number] Admin: 06/14/19 17:46 Dose: 3 units Documented by: [id number] Cosigned by: [id number] Admin: 06/14/19 12:19 Dose: 2 units Documented by: [id number] Cosigned by: [id number] Admin: 06/14/19 09:45 Dose: Not Given Documented by: [id number] Admin: 06/14/19 00:34 Dose: Not Given Documented by: [id number] Cosigned by: [id number] Admin: 06/13/19 17:29 Dose: Not Given Documented by: [id number] Cosigned by: [id number] Admin: 06/13/19 12:03 Dose: 2 units Documented by: [id number] Cosigned by: [id number] Admin: 06/13/19 08:00 Dose: 2 units Documented by: [id number] Cosigned by: [id number] Admin: 06/12/19 20:55 Dose: Not Given Documented by: [id number] Cosigned by: [id number] Lactulose (Chronulac) 30 gm PO BID [facility] Stop: 07/16/19 08:59 Last Admin: 06/16/19 20:27 Dose: Not Given Documented by: [id number] Admin: 06/16/19 08:36 Dose: 30 gm Documented by: [id number] Lisinopril (Zestril) 5 mg PO QAM [facility] Stop: 07/13/19 08:59 Last Admin: 06/15/19 07:55 Dose: 5 mg Documented by: [id number] Admin: 06/14/19 09:01 Dose: 5 mg Documented by: [id number] Admin: 06/13/19 07:56 Dose: 5 mg Documented by: [id number] Pantoprazole Sodium (Protonix) 40 mg PO QDB [facility] Stop: 07/13/19 07:29 Last Admin: 06/16/19 08:38 Dose: 40 mg Documented by: [id number] Admin: 06/15/19 07:55 Dose: 40 mg Documented by: [id number] Admin: 06/14/19 09:01 Dose: 40 mg Documented by: [id number] Admin: 06/13/19 07:56 Dose: 40 mg Documented by: [id number] Tamsulosin HCl (Flomax) 0.4 mg PO DAILY [facility] Stop: 07/13/19 08:59 Last Admin: 06/16/19 08:59 Dose: 0.4 mg Documented by: [id number] Admin: 06/15/19 07:56 Dose: 0.4 mg Documented by: [id number] Admin: 06/14/19 09:01 Dose: 0.4 mg Documented by: [id number] Admin: 06/13/19 07:58 Dose: 0.4 mg Documented by: [id number] Tramadol HCl (Ultram) 50 - 100 mg PO Q6H PRN PRN Reason: Pain Stop: 07/15/19 11:56 Last Admin: 06/16/19 18:44 Dose: 100 mg Documented by: [id number] Admin: 06/16/19 08:36 Dose: 100 mg Documented by: [id number] Admin: 06/15/19 18:33 Dose: 100 mg Documented by: [id number] Admin: 06/15/19 12:27 Dose: 100 mg Documented by: [id number] Warfarin Sodium (Coumadin) 5 mg PO DAILY@1600 [facility] Stop: 07/14/19 15:59 Last Admin: 06/15/19 17:29 Dose: 5 mg Documented by: [id number] Admin: 06/14/19 16:55 Dose: 5 mg Documented by: [id number] Discontinued Medications Acetaminophen (Tylenol) 650 mg PO Q4H PRN PRN Reason: Pain or Fever Stop: 07/12/19 13:09 Last Admin: 06/15/19 07:54 Dose: 650 mg Documented by: [id number] Admin: 06/14/19 16:56 Dose: 650 mg Documented by: [id number] Admin: 06/14/19 09:02 Dose: 650 mg Documented by: [id number] Bupivacaine HCl (Marcaine 0.5% Mpf) 30 ml INFIL NOW ONE Stop: 06/16/19 10:00 Last Admin: 06/16/19 12:00 Dose: 30 ml Documented by: [id number] Lactulose 200 gm/ Sterile Water 700 ml/ BARCODE IDENTIFIER 1 ea 0 gm NM Q4H [facility] Stop: 07/12/19 13:59 Last Admin: 06/12/19 15:26 Dose: Not Given Documented by: [id number] Ethyl Chloride (Ethyl Chloride Aero Per Earp) 1 sprays EXT NOW ONE Stop: 06/16/19 09:57 Last Admin: 06/16/19 12:00 Dose: 1 sprays Documented by: [id number] Sodium Chloride (Nss 1000ml) 1,000 mls @ 999 mls/hr IV .Q1H1M ONE Stop: 06/12/19 10:22 Last Infusion: 06/12/19 10:58 Dose: 0 mls/hr Documented by: [id number] Admin: 06/12/19 09:57 Dose: 999 mls/hr Documented by: [id number] Phytonadione 10 mg/ Sodium (Chloride) 51 mls @ 102 mls/hr IV ONE ONE Stop: 06/12/19 11:15 Last Infusion: 06/12/19 11:38 Dose: 0 mls/hr Documented by: [id number] Admin: 06/12/19 11:07 Dose: 102 mls/hr Documented by: [id number] Insulin Aspart (Novolog Flexpen) 0 units SC Q6 [facility] Stop: 07/12/19 17:59 Last Admin: 06/12/19 16:32 Dose: Not Given Documented by: [id number] Cosigned by: [id number] Lactulose (Chronulac) 30 gm PO QID [facility] Stop: 07/12/19 16:59 Last Admin: 06/15/19 17:22 Dose: Not Given Documented by: [id number] Admin: 06/15/19 12:31 Dose: 30 gm Documented by: [id number] Admin: 06/15/19 07:57 Dose: 30 gm Documented by: [id number] Admin: 06/14/19 20:32 Dose: Not Given Documented by: [id number] Admin: 06/14/19 16:54 Dose: 30 gm Documented by: [id number] Admin: 06/14/19 12:18 Dose: 30 gm Documented by: [id number] Admin: 06/14/19 09:01 Dose: 30 gm Documented by: [id number] Admin: 06/13/19 21:27 Dose: Not Given Documented by: [id number] Admin: 06/13/19 16:59 Dose: 30 gm Documented by: [id number] Admin: 06/13/19 14:41 Dose: 30 gm Documented by: [id number] Admin: 06/13/19 08:09 Dose: 30 gm Documented by: [id number] Admin: 06/12/19 20:45 Dose: 30 gm Documented by: [id number] Admin: 06/12/19 18:25 Dose: 30 gm Documented by: [id number] Methylprednisolone Acetate (Depo-Medrol) 80 mg IA NOW ONE Stop: 06/16/19 09:57 Last Admin: 06/16/19 12:00 Dose: 80 mg Documented by: [id number] Miscellaneous (Unit Dose Compound) 1 ea NM Q4H [facility] Stop: 07/12/19 13:59 Last Admin: 06/12/19 15:27 Dose: Not Given Documented by: [id number] Medical Decision Making Differential Diagnosis Differential diagnoses includes but is not limited to toxic, metabolic, infectious, traumatic, cardiac, neurologic, hematologic, psychiatric and inflammatory etiologies. Medical Records Attestation: I reviewed the patient's medical records. Home Medications Current Medication List: was personally reviewed by me Laboratory Data Attestation: I reviewed the patient's lab results. Result diagrams: 06/16/19 06:31 06/16/19 06:31 Lab Results 06/12/19 06/12/19 06/12/19 Range/Units 09:48 09:48 09:48 WBC 6.89 (4.8-10.8) K/uL RBC 3.31 L (4.7-6.1) M/uL Hgb 11.0 L (14.0-18.0) g/dL Hct 32.8 L (42-52) % MCV 99.1 (80-100) fL MCH 33.2 (25-34) pg MCHC 33.5 (32-36) g/dL RDW Std Deviation 62.9 H (36.4-46.3) fL RDW Coeff of Charo 17.3 H (11.5-14.5) % Plt Count 138 (130-400) K/uL MPV 9.9 (7.4-10.4) fL Immature Gran % (Auto) 0.1 % Neut % (Auto) 70.0 % Lymph % (Auto) 18.7 % [place] % (Auto) 8.3 % Eos % (Auto) 1.9 % Baso % (Auto) 1.0 % Immature Gran # (Auto) 0.01 (0.00-0.02) K/uL Neut # (Auto) 4.82 (1.4-6.5) K/uL Lymph # (Auto) 1.29 (1.2-3.4) K/uL [place] # (Auto) 0.57 (0.11-0.59) K/uL Eos # (Auto) 0.13 (0-0.5) K/uL Baso # (Auto) 0.07 (0-0.2) K/uL PT > 90.0 H (9.0-12.0) Seconds INR 10.4 H* (0.9-1.1) APTT 79.3 H* (21.0-31.0) Seconds PTT Ratio 2.9 Sodium 144 (136-145) mmol/L Potassium 3.5 (3.5-5.1) mmol/L Chloride 112 H (98-107) mmol/L Carbon Dioxide 27 (21-32) mmol/L Anion Gap 5.0 (3-11) BUN 22 H (7-18) mg/dl Creatinine 1.03 (0.6-1.4) mg/dl Est Cr Clr Drug Dosing 72.2 ml/min Est GFR ( Amer) 80.8 Est GFR (Non-Af Amer) 69.7 BUN/Creatinine Ratio 21.3 H (10-20) Glucose 167 H (70-99) mg/dl Lactate (0.4-2.0) mmol/L Calcium 9.5 (8.5-10.1) mg/dl Magnesium 2.2 (1.8-2.4) mg/dl Total Bilirubin 1.3 H (0.2-1) mg/dl AST 29 (15-37) U/L ALT 21 (12-78) U/L Alkaline Phosphatase 115 (45-117) U/L Ammonia (11-32) umol/L Total Creatine Kinase 87 (39-308) U/L CK-MB (CK-2) 3.9 H (0.5-3.6) ng/ml CK/CKMB % Calc 4.5 H (0-3.0) Troponin I 0.021 (0-0.045) ng/ml Total Protein 7.1 (6.4-8.2) gm/dl Albumin 3.0 L (3.4-5.0) gm/dl Globulin 4.1 H (2.5-4.0) gm/dl Albumin/Globulin Ratio 0.7 L (0.9-2) Procalcitonin (0-0.5) ng/ml Digoxin (0.8-2.0) ng/ml 06/12/19 06/12/19 06/12/19 Range/Units 09:48 09:48 09:48 WBC (4.8-10.8) K/uL RBC (4.7-6.1) M/uL Hgb (14.0-18.0) g/dL Hct (42-52) % MCV (80-100) fL MCH (25-34) pg MCHC (32-36) g/dL RDW Std Deviation (36.4-46.3) fL RDW Coeff of Charo (11.5-14.5) % Plt Count (130-400) K/uL MPV (7.4-10.4) fL Immature Gran % (Auto) % Neut % (Auto) % Lymph % (Auto) % [place] % (Auto) % Eos % (Auto) % Baso % (Auto) % Immature Gran # (Auto) (0.00-0.02) K/uL Neut # (Auto) (1.4-6.5) K/uL Lymph # (Auto) (1.2-3.4) K/uL [place] # (Auto) (0.11-0.59) K/uL Eos # (Auto) (0-0.5) K/uL Baso # (Auto) (0-0.2) K/uL PT (9.0-12.0) Seconds INR (0.9-1.1) APTT (21.0-31.0) Seconds PTT Ratio Sodium (136-145) mmol/L Potassium (3.5-5.1) mmol/L Chloride (98-107) mmol/L Carbon Dioxide (21-32) mmol/L Anion Gap (3-11) BUN (7-18) mg/dl Creatinine (0.6-1.4) mg/dl Est Cr Clr Drug Dosing ml/min Est GFR ( Amer) Est GFR (Non-Af Amer) BUN/Creatinine Ratio (10-20) Glucose (70-99) mg/dl Lactate 1.5 (0.4-2.0) mmol/L Calcium (8.5-10.1) mg/dl Magnesium (1.8-2.4) mg/dl Total Bilirubin (0.2-1) mg/dl AST (15-37) U/L ALT (12-78) U/L Alkaline Phosphatase (45-117) U/L Ammonia 91.4 H (11-32) umol/L Total Creatine Kinase (39-308) U/L CK-MB (CK-2) (0.5-3.6) ng/ml CK/CKMB % Calc (0-3.0) Troponin I (0-0.045) ng/ml Total Protein (6.4-8.2) gm/dl Albumin (3.4-5.0) gm/dl Globulin (2.5-4.0) gm/dl Albumin/Globulin Ratio (0.9-2) Procalcitonin < 0.05 (0-0.5) ng/ml Digoxin (0.8-2.0) ng/ml 06/12/19 Range/Units 09:48 WBC (4.8-10.8) K/uL RBC (4.7-6.1) M/uL Hgb (14.0-18.0) g/dL Hct (42-52) % MCV (80-100) fL MCH (25-34) pg MCHC (32-36) g/dL RDW Std Deviation (36.4-46.3) fL RDW Coeff of Charo (11.5-14.5) % Plt Count (130-400) K/uL MPV (7.4-10.4) fL Immature Gran % (Auto) % Neut % (Auto) % Lymph % (Auto) % [place] % (Auto) % Eos % (Auto) % Baso % (Auto) % Immature Gran # (Auto) (0.00-0.02) K/uL Neut # (Auto) (1.4-6.5) K/uL Lymph # (Auto) (1.2-3.4) K/uL [place] # (Auto) (0.11-0.59) K/uL Eos # (Auto) (0-0.5) K/uL Baso # (Auto) (0-0.2) K/uL PT (9.0-12.0) Seconds INR (0.9-1.1) APTT (21.0-31.0) Seconds PTT Ratio Sodium (136-145) mmol/L Potassium (3.5-5.1) mmol/L Chloride (98-107) mmol/L Carbon Dioxide (21-32) mmol/L Anion Gap (3-11) BUN (7-18) mg/dl Creatinine (0.6-1.4) mg/dl Est Cr Clr Drug Dosing ml/min Est GFR ( Amer) Est GFR (Non-Af Amer) BUN/Creatinine Ratio (10-20) Glucose (70-99) mg/dl Lactate (0.4-2.0) mmol/L Calcium (8.5-10.1) mg/dl Magnesium (1.8-2.4) mg/dl Total Bilirubin (0.2-1) mg/dl AST (15-37) U/L ALT (12-78) U/L Alkaline Phosphatase (45-117) U/L Ammonia (11-32) umol/L Total Creatine Kinase (39-308) U/L CK-MB (CK-2) (0.5-3.6) ng/ml CK/CKMB % Calc (0-3.0) Troponin I (0-0.045) ng/ml Total Protein (6.4-8.2) gm/dl Albumin (3.4-5.0) gm/dl Globulin (2.5-4.0) gm/dl Albumin/Globulin Ratio (0.9-2) Procalcitonin (0-0.5) ng/ml Digoxin 0.7 L (0.8-2.0) ng/ml Imaging Data Radiologist's Impression: Radiology results as stated below per my review and the radiologist's interpretation: CT head/brain wo con CLINICAL HISTORY: Acute change in mental status COMPARISON STUDY: May 30, 2019 TECHNIQUE: Axial CT of the brain is performed from the vertex to the skull base. IV contrast was not administered for this examination. A dose lowering technique was utilized adhering to the principles of ALARA. CT DOSE: 614.27 mGy.cm FINDINGS: No intra or extra-axial mass lesions are visualized. There is no CT evidence of acute cortical infarction. There is no evidence of midline shift. There is no acute hemorrhage. No calvarial fractures are visualized. There are patchy white matter hypodensities likely on a small vessel basis. There is no evidence of pathologic ventricular dilatation. There is no evidence of acute sinusitis IMPRESSION: No acute intracranial findings ACT 112: Negative or not required by law. Electronically signed by: Sesar Wang M.D. 06/12/2019 10:02 AM XR chest 1V portable HISTORY: 79 years-old Male SEPSIS acute sepsis COMPARISON: Chest radiograph 05/30/2019, CTA chest 12/10/2017 TECHNIQUE: Portable AP view of the chest FINDINGS: Cardiac silhouette is enlarged, unchanged. Pulmonary vascular congestion with slightly progressed mild interstitial coarsening. There is no pneumothorax, large pleural effusion or new lobar airspace consolidation. Ill-defined bibasilar densities suggest atelectasis. Degenerative changes of the shoulders and spine. IMPRESSION: 1. Cardiomegaly with pulmonary vascular congestion and slightly progressed interstitial coarsening suggestive of mild pulmonary edema. 2. Minimal bibasilar densities suggest probable atelectasis. ACT 112: Negative or not required by law. The above report was generated using voice recognition software. It may contain grammatical, syntax or spelling errors. Electronically signed by: Avi Chin M.D. 06/12/2019 10:15 AM ECG Data Attestation: I personally reviewed and interpreted this ECG as follows: Indication: + altered mental status Rate (beats per minute): 83 Rhythm: + atrial fibrillation ECG Intervals/blocks: + Normal QT-c (QT-c 460.) ECG [place]: + Left axis deviation ECG ST segments: no ST depression and no ST elevation ECG Findings: + PVCs Blood Pressure Blood Pressure Findings: Elevated blood pressure Blood Pressure Disposition: further management by hospitalist [facility] Narrative This is a 79-year-old male who presents emergency department with an altered mental status. Patient's ammonia was found to be elevated. In addition the patient's INR is also grossly elevated. Due to this the patient was given 10 mg of vitamin K. He was also hypotensive and started on fluids. I did discuss the case with the hospitalist service who did agree to admit the patient. Patient was in agreement with the treatment plan. Impression & Plan UTI due to extended-spectrum beta lactamase (ESBL) producing Escherichia coli, Supratherapeutic INR, Metabolic encephalopathy, Increased ammonia level Discharge Plan Visit Data *Final* Discharge Date/Time: 06/12/19 12:34 Chief Complaint: Altered Mental Status ED Provider: Dennis Valdez Discharge Problem: UTI due to extended-spectrum beta lactamase (ESBL) producing Escherichia coli, Supratherapeutic INR, Metabolic encephalopathy, Increased ammonia level Patient Disposition: Admitted As Inpatient Discharge Instructions Interventions: ED Discharge Assessment Last Done: 06/12/19 12:34 The scribe's documentation has been prepared under my direction and personally reviewed by me in its entirety. I confirm that the note above accurately reflects all work, treatment, procedures, and medical decision making performed by me.
--- NOTE | 2019-06-12 15:50 | Ultrasound Report ---
ABDOMINAL ULTRASOUND, RIGHT UPPER QUADRANT HISTORY: hepatic encephalopathy. COMPARISON: Liver MRI 12/11/2018. FINDINGS: Pancreas: The pancreatic head and tail are obscured by overlying bowel gas. The remaining portions of the pancreas are within normal limits. Liver: Coarse echotexture with a nodular contour consistent with cirrhosis. No hepatic masses identif ied by ultrasound. Gallbladder: Cholelithiasis. No gallbladder wall thickening. CBD: 5 mm. Right kidney: No hydronephrosis. There is an indeterminate 1.3 cm hyperechoic focus along the periphe ry of the kidney. This could represent focal fat related to cortical scarring. An echogenic lesion co uld also a similar appearance suggests an angiomyolipoma. IMPRESSION: 1. Cholelithiasis. No gallbladder wall thickening. 2. Cirrhosis. 3. There is an indeterminate 1.3 cm hyperechoic focus along the periphery of the kidney. This could r epresent focal fat related to cortical scarring. An echogenic lesion could also a similar appearance suggests an angiomyolipoma. ACT 112: Negative or not required by law. Electronically signed by: Ricardo Lim M.D. 06/12/2019 3:49 PM
--- NOTE | 2019-06-12 15:52 | Ultrasound Report ---
US abdomen ltd ascites CLINICAL HISTORY: cirrhosis, dx cause of cirrhosis and r/o SBP COMPARISON STUDY: Abdomen and pelvis CT 10/25/2017. FINDINGS: Real-time sonographic imaging of the abdomen was performed with event sales representative images submi tted. No ascites identified. Cirrhotic liver. Splenomegaly measuring 14.6 cm in length. IMPRESSION: 1. No ascites identified. 2. Cirrhosis with splenomegaly. ACT 112: Negative or not required by law. Electronically signed by: Ricardo Lim M.D. 06/12/2019 3:51 PM
--- NOTE | 2019-06-12 15:53 | Ultrasound Report ---
US duplex portal hepatic veins HISTORY: 79 years-old Male hepatic encephalopathy COMPARISON: Ultrasound of the liver of same day, liver MRI 12/11/2017 TECHNIQUE: Multiple real-time sonographic images of the hepatic vessels were obtained assessing vince jael appearance, color and spectral flow. FINDINGS: Heterogeneous appearance of the liver with cirrhotic morphology. Hepatopedal flow noted within the pa tent portal vein. Patent hepatic vein. IMPRESSION: 1. Cirrhotic liver disease. 2. Patent portal vein with hepatopedal flow. ACT 112: Negative or not required by law. The above report was generated using voice recognition software. It may contain grammatical, syntax o r spelling errors. Electronically signed by: Avi Chin M.D. 06/12/2019 3:52 PM
[2019-06-12] MEDS: ERTAPENEM SODIUM 1,000 MG in SODIUM CHLORIDE 0.9% 50 ML IV SCH (16:15)
[2019-06-12] MEDS: DIGOXIN 0.125 MG TAB PO SCH (16:19)
[2019-06-12 17:30] LABS: INR 2.7 (0.9-1.1); Prothrombin Time 25.9 Seconds (9.0-12.0)
--- NOTE | 2019-06-12 17:30 | Electrocardiogram Report ---
Test Reason : Blood Pressure : / mmHG Vent. Rate : 083 BPM Atrial Rate : 090 BPM P-R Int : 000 ms QRS Dur : 120 ms QT Int : 392 ms P-R-T Axes : 000 -54 098 degrees QTc Int : 460 ms Atrial fibrillation with premature ventricular or aberrantly conducted complexes Left axis deviation Left anterior fascicular block Abnormal ECG When compared with ECG of 30-MAY-2019 19:57, Left anterior fascicular block is present Confirmed by Stanislaw Coyle ([id number]) on 06/12/2019 5:29:58 PM Referred By: Cortze SCI Confirmed By:Kevin Coyle
[2019-06-12] MEDS ORDERED: INSULIN ASPART 100 UNITS/ML 3 ML PEN SC SCH (18:00)
[2019-06-12] MEDS: LACTULOSE SYRUP 30 GM/45 ML UDP PO SCH ×2 (18:25→20:45)
[2019-06-12] MEDS ORDERED: Nursing to Pharmacy Communication ONE (19:31)
[2019-06-12] MEDS: carvediloL 3.125 MG TAB PO SCH (20:45)
[2019-06-12] MEDS: FLUTICASONE/VILANTEROL 100/25MCG 14 PUFFS/INHALER INH SCH (20:46)
[2019-06-12] MEDS: INSULIN ASPART 100 UNITS/ML 3 ML PEN SC SCH (20:55)
[2019-06-13 06:50] LABS: INR 1.6 (0.9-1.1); Prothrombin Time 15.8 Seconds (9.0-12.0)
[2019-06-13 07:06] LABS: Albumin Level 2.5 gm/dl (3.4-5.0); BUN Creatinine Ratio 18.4 (10-20); Calcium 9.3 mg/dl (8.5-10.1); Creatinine Clr Calc Pharmacy 74.3 ml/min; Est GFR (African American) 83.8; Est GFR (Non-African American) 72.3; Potassium 3.9 mmol/L (3.5-5.1)
[2019-06-13 07:21] LABS: Albumin Globulin Ratio 0.7 (0.9-2); Bilirubin,Total 2.1 mg/dl (0.2-1); Globulin 3.6 gm/dl (2.5-4.0); Total Protein 6.1 gm/dl (6.4-8.2)
[2019-06-13] MEDS: carvediloL 3.125 MG TAB PO SCH ×2 (07:55→21:23)
[2019-06-13] MEDS: FUROSEMIDE 80 MG TAB PO SCH (07:55)
[2019-06-13] MEDS: PANTOprazole 40 MG TAB PO SCH (07:56)
[2019-06-13] MEDS: lisinopriL 5 MG TAB PO SCH (07:56)
[2019-06-13] MEDS: FOLIC ACID 1 MG TAB PO SCH (07:57)
[2019-06-13] MEDS: CYANOCOBALAMIN 500 MCG TABLET (VITAMIN B-12) PO SCH (07:57)
[2019-06-13] MEDS: dilTIAZem HCL 180 MG CAPCR PO SCH (07:58)
[2019-06-13] MEDS: TAMSULOSIN HCL 0.4 MG CAP PO SCH (07:58)
[2019-06-13] MEDS: INSULIN ASPART 100 UNITS/ML 3 ML PEN SC SCH ×3 (08:00→17:29)
[2019-06-13] MEDS: LACTULOSE SYRUP 30 GM/45 ML UDP PO SCH ×4 (08:09→21:27)
--- NOTE | 2019-06-13 11:25 | Gastroenterology Progress Note ---
Date of Service June 13, 2019 Assessment & Plan (1) Cirrhosis: 1. We will continue to watch for results of urine cx and blood. 2. Unable to obtain diagnostic tap as very minimal ascitic fluid. 3. Low-salt diet. 4. Continue to Hold diuretics. After encephalopathy clears could restart at outpatient dosages. 5. Would benefit from eventual EGD. 6. Once able to follow commands, recommend MRI liver for further imaging of the 1.9cm liver lesion found on CT in April. 7. Lactulose po QID. (2) Hepatic encephalopathy: As above Supervising Physician Co-Signing Physician Notes Attending attestation I have seen, examined this patient, and agree with the findings and above by our mid-level provider ADRIANE Craig, with the following additions -Clear today -MRI for liver lesion Subjective Mr. Ramírez is a 79 yr old male with cirrhosis admitted yesterday for confusion. He is clinically improved today with less confusion. He is able to tell me his name and that this is May 2019 but thinks that he is in [facility]. Ammonia 54->112. T Bili 1.3->2.1. Review of Systems Constitutional: + weakness; no fever and no body aches Eyes: no problem reported Ear, Nose, Mouth, Throat: no problem reported The guards tell me that he was able to eat scrambled eggs for breakfast without difficulty. Respiratory: no cough, no wheezing and no problem reported Cardiovascular: + chest pain; no problem reported Gastrointestinal: as per Subjective / HPI Musculoskeletal: no problem reported Neurologic: + confusion (Per longterm guards he is not at his baseline; stronger than yesterday; less confused compared to yesterday) Psychiatric: no problem reported Physical Exam Eyes: PERRL, conjunctivae normal, anicteric sclerae ENMT: external ear and nose normal, oropharynx normal Neck: trachea midline, no thyromegaly Respiratory: normal respiratory effort, lungs clear to auscultation Cardiovascular: RRR, no murmur, no edema Gastrointestinal (Abdomen): Inspection/Auscultation: abdomen not distended Percussion/Palpation: + abdomen tender (over entire abdomen) and abdomen soft Neurologic: PERRL, EOMI, accommodation nl, no face palsy, no dysarthria Lymphatic: no cervical or axillary lymphadenopathy Results & Data Vital Signs (Past 12 Hours) Vital Signs Temp Pulse Pulse Resp BP Pulse Ox 06/13/19 11:16 36.5 C 81 18 138/81 97 06/13/19 08:00 79 06/13/19 07:36 36.8 C 81 18 138/88 98 06/13/19 04:16 37.0 C 85 20 153/84 H 94 06/12/19 23:39 162/86 H
--- NOTE | 2019-06-13 15:05 | Hospitalist Progress Note ---
Date of Service June 13, 2019 Assessment & Plan (1) Metabolic encephalopathy: 2/2 ESBL E coli UTI-resolved with treatment. As his ammonia level is elevated >100, so there is a possibility that hepatic encephalopathy is contributing to confusion/delirium, also. (2) Hepatic encephalopathy: as above. Resolved. (3) Cirrhosis: Known, chronic. No evidence of ascites this admission. Cont lactulose. (4) UTI due to extended-spectrum beta lactamase (ESBL) producing Escherichia coli: Ertapenem x 14 days. (5) Atrial fibrillation: chronic, stable. Cont Coreg 3.125mg PO BID, Diltiazem 180mg PO daily, digoxin 0.125mg PO daily. Warfarin was initially held because of supratherapeutic INR, but this will be restarted. (6) Supratherapeutic INR: resolved after vitamin K, ok to restart coumadin now for stroke prophylaxis in atrial fibrillation. (7) Bone lesion: questionable lumbar spine lesion on recent bone scan. Further workup per PCP. (8) Prostate cancer: Recently diagnosed. Cont outpatient workup. (9) Diastolic dysfunction: -Appears euvolemic on exam, continue furosemide (10) Diabetes mellitus, type 2: At goal on Novolog with correction and carb coverage (11) BPH (benign prostatic hyperplasia): -Continue tamsulosin (12) GERD (gastroesophageal reflux disease): -Continue PPI (13) DVT prophylaxis: coumadin Full Dispo-return home in am. Shey Sullivan DO [facility] Hospitalist Subjective Confused today, unable to obtain accurate ROS Review of Systems 2 Review of Systems: Unobtainable due to mental health condition Physical Exam Physical Exam: CONSTITUTIONAL: WNWD, vitals as above, generally well- appearing EYES: normal conjunctivae, no scleral icterus ENT: MMM RESPIRATORY: clear to auscultation bilaterally, no crackles, rales or wheezes, normal respiratory effort CARDIOVASCULAR: regular rate and rhythm, S1 and 2 heard without murmurs, gallops or rubs, no JVD, no peripheral edema GASTROINTESTINAL: normal bowel sounds, soft, nontender, nondistended, no guarding MUSCULOSKELETAL: strength 5/5 throughout, head is normocephalic and atraumatic SKIN: warm and dry NEUROLOGIC: CN 2-12 grossly intact, normal cognition, no gross focal deficits. PSYCHIATRIC: alert cooperative and oriented to person, place and time. Results & Data ([facility]) Vital Signs (Past 12 Hours) Vital Signs Temp Pulse Pulse Resp BP Pulse Ox 06/13/19 11:16 36.5 C 81 18 138/81 97 06/13/19 08:00 79 06/13/19 07:36 36.8 C 81 18 138/88 98 06/13/19 04:16 37.0 C 85 20 153/84 H 94 Laboratory Results BMP 06/13/19 06:24 Sodium 145 Potassium 3.9 Chloride 118 H Carbon Dioxide 24 BUN 18 Creatinine 1.00 Glucose 122 H Calcium 9.3 Liver Function 06/13/19 Range/Units 06:24 Total Bilirubin 2.1 H D (0.2-1) mg/dl AST 22 (15-37) U/L ALT 16 (12-78) U/L Alkaline Phosphatase 99 (45-117) U/L Albumin 2.5 L (3.4-5.0) gm/dl Medications Administered Current Inpatient Medications Acetaminophen (Tylenol) 650 mg PO Q4H PRN PRN Reason: Pain or Fever Stop: 07/12/19 13:09 Carvedilol (Coreg) 3.125 mg PO BID [facility] Stop: 07/12/19 20:59 Last Admin: 06/13/19 07:55 Dose: 3.125 mg Documented by: Cyanocobalamin (Vitamin B-12) 1,000 mcg PO DAILY [facility] Stop: 07/13/19 08:59 Last Admin: 06/13/19 07:57 Dose: 1,000 mcg Documented by: Dextrose (Dextrose 50%) 25 - 50 ml IV UD PRN; Protocol PRN Reason: Hypoglycemia Protocol Stop: 07/12/19 13:34 Digoxin (Lanoxin) 0.125 mg PO Q24H [facility] Stop: 07/12/19 15:59 Last Admin: 06/12/19 16:19 Dose: 0.125 mg Documented by: Diltiazem HCl (Cardizem Cd) 180 mg PO QAM [facility] Stop: 07/13/19 08:59 Last Admin: 06/13/19 07:58 Dose: 180 mg Documented by: Fluticasone/Vilanterol (Breo Ellipta 100/25 Mcg Inh) 1 puffs INH QPM [facility] Stop: 07/12/19 20:59 Last Admin: 06/12/19 20:46 Dose: 1 puffs Documented by: Folic Acid (Folvite) 1 mg PO QAM [facility] Stop: 07/13/19 08:59 Last Admin: 06/13/19 07:57 Dose: 1 mg Documented by: Furosemide (Lasix) 80 mg PO QAM [facility] Stop: 07/13/19 08:59 Last Admin: 06/13/19 07:55 Dose: 80 mg Documented by: Glucagon (Glucagen) 1 mg SQ UD PRN; Protocol PRN Reason: Hypoglycemia Protocol Stop: 07/12/19 13:34 Glucose (Dex4 Glucose) 4 - 8 tabs PO UD PRN; Protocol PRN Reason: Hypoglycemia Protocol Stop: 07/12/19 13:34 Glucose (Glucose 40%) 15 - 30 gm PO UD PRN; Protocol PRN Reason: Hypoglycemia Protocol Stop: 07/12/19 13:34 Ertapenem 1,000 mg/ Sodium (Chloride) 60 mls @ 100 mls/hr IV Q24H [facility] Stop: 06/22/19 15:29 Last Infusion: 06/12/19 17:03 Dose: Infused Documented by: Insulin Aspart (Novolog Flexpen) 0 units SC ACHS [facility] Stop: 07/12/19 17:59 Last Admin: 06/13/19 12:03 Dose: 2 units Documented by: Lactulose (Chronulac) 30 gm PO QID [facility] Stop: 07/12/19 16:59 Last Admin: 06/13/19 14:41 Dose: 30 gm Documented by: Lisinopril (Zestril) 5 mg PO QAM [facility] Stop: 07/13/19 08:59 Last Admin: 06/13/19 07:56 Dose: 5 mg Documented by: Miscellaneous (Carbohydrates For Hypoglycemia) 15 - 30 gm PO UD PRN PRN Reason: Hypoglycemia Protocol Stop: 07/12/19 13:34 Pantoprazole Sodium (Protonix) 40 mg PO QDB [facility] Stop: 07/13/19 07:29 Last Admin: 06/13/19 07:56 Dose: 40 mg Documented by: Tamsulosin HCl (Flomax) 0.4 mg PO DAILY [facility] Stop: 07/13/19 08:59 Last Admin: 06/13/19 07:58 Dose: 0.4 mg Documented by:
[2019-06-13] MEDS: ERTAPENEM SODIUM 1,000 MG in SODIUM CHLORIDE 0.9% 50 ML IV SCH (15:47)
[2019-06-13] MEDS: DIGOXIN 0.125 MG TAB PO SCH (16:59)
[2019-06-13] MEDS: FLUTICASONE/VILANTEROL 100/25MCG 14 PUFFS/INHALER INH SCH (21:20)
[2019-06-14] MEDS: INSULIN ASPART 100 UNITS/ML 3 ML PEN SC SCH ×5 (00:34→20:36)
[2019-06-14] MEDS: lisinopriL 5 MG TAB PO SCH (09:01)
[2019-06-14] MEDS: PANTOprazole 40 MG TAB PO SCH (09:01)
[2019-06-14] MEDS: TAMSULOSIN HCL 0.4 MG CAP PO SCH (09:01)
[2019-06-14] MEDS: FUROSEMIDE 80 MG TAB PO SCH (09:01)
[2019-06-14] MEDS: LACTULOSE SYRUP 30 GM/45 ML UDP PO SCH ×4 (09:01→20:32)
[2019-06-14] MEDS: FOLIC ACID 1 MG TAB PO SCH (09:02)
[2019-06-14] MEDS: carvediloL 3.125 MG TAB PO SCH ×2 (09:02→20:33)
[2019-06-14] MEDS: dilTIAZem HCL 180 MG CAPCR PO SCH (09:02)
[2019-06-14] MEDS: CYANOCOBALAMIN 500 MCG TABLET (VITAMIN B-12) PO SCH (09:02)
[2019-06-14] MEDS: ACETAMINOPHEN 325 MG TAB PO PRN ×2 (09:02→16:56)
[2019-06-14 10:11] LABS: Hematocrit (blood only) 36.3 % (42-52); Hemoglobin 12.2 g/dL (14.0-18.0); Mean Corpuscular Hemoglobin 33.6 pg (25-34); Mean Corpuscular Hgb Conc 33.6 g/dL (32-36); Mean Platelet Volume 10.5 fL (7.4-10.4); Platelet Count 135 K/uL (130-400); RDW Coefficient of Variation 17.3 % (11.5-14.5); RDW Standard Deviation 63.3 fL (36.4-46.3); Red Blood Count 3.63 M/uL (4.7-6.1); White Blood Count 9.77 K/uL (4.8-10.8)
[2019-06-14 10:25] LABS: INR 1.7 (0.9-1.1); Prothrombin Time 16.6 Seconds (9.0-12.0)
[2019-06-14 10:28] LABS: BUN Creatinine Ratio 18.2 (10-20); Calcium 9.5 mg/dl (8.5-10.1); Creatinine Clr Calc Pharmacy 55.1 ml/min; Est GFR (African American) 58.3; Est GFR (Non-African American) 50.3; Potassium 3.8 mmol/L (3.5-5.1)
--- NOTE | 2019-06-14 11:21 | Magnetic Resonance Report ---
MR abdomen wo con HISTORY: cirrhosis 1.9cm liver lesion on outside CT TECHNIQUE: Multiplanar multisequence MRI of the abdomen was performed without the use of intravenous contrast. COMPARISON STUDY: Abdominal ultrasound 06/12/2019. Liver MRI 12/11/2017. FINDINGS: The study is limited from a technical standpoint due to motion artifact and the lack of int ravenous contrast. Specifically, the in and out of phase sequences are nondiagnostic. Cholelithiasis. The lung bases are clear. Redemonstration of the lobular 18 x 13 mm T2 hyperintense lesion within th e right hepatic lobe. This is indeterminate due to the lack of contrast in the motion artifact. No ga llbladder wall thickening. Normal caliber common bile duct. The visualized pancreas and adrenal gland s are unremarkable. Subcentimeter cyst within the lower pole of the right kidney. Trace right perinep hric edema. A left kidney is not identified. Normal spleen. Nodular contour to the liver consistent w ith cirrhosis. IMPRESSION: 1. Redemonstration of the 18 x 13 mm lobular T2 hyperintense lesion within the right hepatic lobe. Th is is indeterminate due to motion artifact on the majority of the sequences and the lack of intraveno us contrast. Overall, this is similar in size compared to the 2018 examination. 2. Cirrhotic liver. 3. Cholelithiasis. 4. A normal left kidney is not identified. ACT 112: Negative or not required by law. Electronically signed by: Ricardo Lim M.D. 06/14/2019 11:20 AM
[2019-06-14] MEDS: DICLOFENAC SOD 1% GEL 100 GM TUBE EXT PRN (12:22)
--- NOTE | 2019-06-14 12:56 | History & Physical Bridge Note ---
Date of Service June 14, 2019 History & Physical Bridge Note I have examined the patient, reviewed the History & Physical and in the interval since the performance of the History & Physical I have noted the following changes of clinical significance: no changes noted
--- NOTE | 2019-06-14 15:25 | Hospitalist Progress Note ---
Date of Service June 14, 2019 Assessment & Plan (1) Metabolic encephalopathy: 2/2 ESBL E coli UTI-resolved with treatment. As his ammonia level was elevated >100, there is a possibility that hepatic encephalopathy was contributing to confusion/delirium, also. Ammonia level is back in the normal range and he is doing well today. (2) Hepatic encephalopathy: as above. Resolved. (3) Cirrhosis: Known, chronic. No evidence of ascites this admission. With HE resolved and ammonia improved, this appears stable. Appreciate GI involvement. (4) UTI due to extended-spectrum beta lactamase (ESBL) producing Escherichia coli: Ertapenem x 14 days. (5) Atrial fibrillation: chronic, stable. Cont Coreg 3.125mg PO BID, Diltiazem 180mg PO daily, digoxin 0.125mg PO daily. Warfarin was initially held because of supratherapeutic INR, but this will be restarted. (6) Supratherapeutic INR: resolved after vitamin K, ok to restart coumadin now for stroke prophylaxis in atrial fibrillation. (7) Bone lesion: questionable lumbar spine lesion on recent bone scan. Further workup per PCP. (8) Prostate cancer: Recently diagnosed. Cont outpatient workup. (9) Diastolic dysfunction: -Appears euvolemic on exam, continue furosemide (10) Diabetes mellitus, type 2: At goal on Novolog with correction and carb coverage (11) BPH (benign prostatic hyperplasia): -Continue tamsulosin (12) GERD (gastroesophageal reflux disease): -Continue PPI (13) DVT prophylaxis: coumadin Full Dispo-return home in am. Shey Sullivan DO [facility] Hospitalist Subjective 79 yo M here with AMS, resolved today. He is oriented. He denies any pain or other symptoms today. We discussed the need for IV abx and he was consented for a PICC which was placed. senior living medical oncology physician and CM were updated on the plan. Because the half-way cannot obtain the abx until Sunday, he will need to stay overnight. Review of Systems Review of Systems: All systems reviewed & are unremarkable except as noted in Subjective Physical Exam Physical Exam: CONSTITUTIONAL: WNWD, vitals as above, generally well- appearing EYES: normal conjunctivae, no scleral icterus ENT: MMM RESPIRATORY: clear to auscultation bilaterally, no crackles, rales or wheezes, normal respiratory effort CARDIOVASCULAR: regular rate and rhythm, S1 and 2 heard without murmurs, gallops or rubs, no JVD, no peripheral edema GASTROINTESTINAL: normal bowel sounds, soft, nontender, nondistended MUSCULOSKELETAL: strength 5/5 throughout, head is normocephalic and atraumatic SKIN: warm and dry NEUROLOGIC: CN 2-12 grossly intact, normal cognition, no gross focal deficits. PSYCHIATRIC: alert cooperative and oriented to person, place and time. Results & Data ([facility]) Vital Signs (Past 12 Hours) Vital Signs Temp Pulse Resp BP Pulse Ox 06/14/19 14:58 36.8 C 77 18 144/81 H 94 06/14/19 11:59 36.3 C L 81 20 166/89 H 99 06/14/19 08:11 36.8 C 82 20 139/69 98 Laboratory Results Short CBC 06/14/19 Range/Units 10:00 WBC 9.77 (4.8-10.8) K/uL Hgb 12.2 L (14.0-18.0) g/dL Hct 36.3 L (42-52) % Plt Count 135 (130-400) K/uL BMP 06/14/19 10:00 Sodium 142 Potassium 3.8 Chloride 111 H Carbon Dioxide 27 BUN 25 H Creatinine 1.35 D Glucose 172 H Calcium 9.5 Medications Administered Current Inpatient Medications Acetaminophen (Tylenol) 650 mg PO Q4H PRN PRN Reason: Pain or Fever Stop: 07/12/19 13:09 Last Admin: 06/14/19 09:02 Dose: 650 mg Documented by: Carvedilol (Coreg) 3.125 mg PO BID [facility] Stop: 07/12/19 20:59 Last Admin: 06/14/19 09:02 Dose: 3.125 mg Documented by: Cyanocobalamin (Vitamin B-12) 1,000 mcg PO DAILY [facility] Stop: 07/13/19 08:59 Last Admin: 06/14/19 09:02 Dose: 1,000 mcg Documented by: Dextrose (Dextrose 50%) 25 - 50 ml IV UD PRN; Protocol PRN Reason: Hypoglycemia Protocol Stop: 07/12/19 13:34 Diclofenac Sodium (Voltaren 1% Top) 2 gm EXT BID PRN PRN Reason: knee pain Stop: 07/14/19 10:44 Last Admin: 06/14/19 12:22 Dose: 2 gm Documented by: Digoxin (Lanoxin) 0.125 mg PO Q24H [facility] Stop: 07/12/19 15:59 Last Admin: 06/13/19 16:59 Dose: 0.125 mg Documented by: Diltiazem HCl (Cardizem Cd) 180 mg PO QAM [facility] Stop: 07/13/19 08:59 Last Admin: 06/14/19 09:02 Dose: 180 mg Documented by: Fluticasone/Vilanterol (Breo Ellipta 100/25 Mcg Inh) 1 puffs INH QPM [facility] Stop: 07/12/19 20:59 Last Admin: 06/13/19 21:20 Dose: 1 puffs Documented by: [facility] ([facility]) [facility] [place]: 07/13/19 08:59 Last Admin: 06/14/19 09:02 Dose: 1 mg Documented by: [facility]urosemide (Lasix) [facility] [place]: 07/13/19 08:59 Last Admin: 06/14/19 09:01 Dose: 80 mg Documented by: Glucagon (Glucagen) 1 mg SQ UD PRN; Protocol PRN Reason: Hypoglycemia Protocol Stop: 07/12/19 13:34 Glucose (Dex4 Glucose) 4 - 8 tabs PO UD PRN; Protocol PRN Reason: Hypoglycemia Protocol Stop: 07/12/19 13:34 Glucose (Glucose 40%) 15 - 30 gm PO UD PRN; Protocol PRN Reason: Hypoglycemia Protocol Stop: 07/12/19 13:34 Ertapenem 1,000 mg/ Sodium (Chloride) 60 mls @ 100 mls/hr IV Q24H [facility] Stop: 06/22/19 15:29 Last Infusion: 06/13/19 16:20 Dose: Infused Documented by: Insulin Aspart (Novolog Flexpen) 0 units SC ACHS [facility] Stop: 07/12/19 17:59 Last Admin: 06/14/19 12:19 Dose: 2 units Documented by: Lactulose (Chronulac) 30 gm PO QID [facility] Stop: 07/12/19 16:59 Last Admin: 06/14/19 12:18 Dose: 30 gm Documented by: Lisinopril (Zestril) 5 mg PO QAM [facility] Stop: 07/13/19 08:59 Last Admin: 06/14/19 09:01 Dose: 5 mg Documented by: Miscellaneous (Carbohydrates For Hypoglycemia) 15 - 30 gm PO UD PRN PRN Reason: Hypoglycemia Protocol Stop: 07/12/19 13:34 Pantoprazole Sodium (Protonix) 40 mg PO QDB [facility] Stop: 07/13/19 07:29 Last Admin: 06/14/19 09:01 Dose: 40 mg Documented by: Tamsulosin HCl (Flomax) 0.4 mg PO DAILY [facility] Stop: 07/13/19 08:59 Last Admin: 06/14/19 09:01 Dose: 0.4 mg Documented by: Warfarin Sodium (Coumadin) 5 mg PO DAILY@1600 [facility] Stop: 07/14/19 15:59
[2019-06-14] MEDS: ERTAPENEM SODIUM 1,000 MG in SODIUM CHLORIDE 0.9% 50 ML IV SCH (16:54)
[2019-06-14] MEDS: WARFARIN SOD 5 MG TAB PO SCH (16:55)
[2019-06-14] MEDS: DIGOXIN 0.125 MG TAB PO SCH (16:56)
--- NOTE | 2019-06-14 17:49 | Gastroenterology Progress Note ---
Date of Service June 14, 2019 Supervising Physician Co-Signing Physician Notes 79 yo male admitted thru the ER for hepatic encephalopathy, on treatment for an infection with abx. He currently is alert and orietned to person, place, and mostly time for me today. His cirrhosis appears to be not a new diagnosis for him - meld is fawn 18 today. Liver lesion incidentally found on abd frank and susbequent MRI showing it to be stable in size compared to prior imaging in 2018, however, not fully classified as a metastatis lesion or hcc. Could consider checking an afp. Even if this does prove to be hcc, he is likely not a transplant candidate given his current age and inmate status. Oncology input would be recommended. Continued low salt diet for cirrhosis - 2 grams, limit tylenol, treat the current infection as that may have been contributing to his hepatic encephalopathy. Would ensure when discharged he is on lactulose +/- xifaxan. Subjective No acute complaints reported to me Two guards at the bedside Patient is chained to the bed Review of Systems Review of Systems: All systems reviewed & are unremarkable except as noted in HPI & below Physical Exam Physical Exam: Elderly male lying in bed in nad Constitutional: WD/WN, vitals as above Eyes: PERRL, conjunctivae normal, anicteric sclerae No scleral icterus noted Gastrointestinal (Abdomen): normal bowel sounds, soft, nontender, no hepatosplenomegaly Skin: no rashes, warm and dry Neurologic: CN's II-XI intact bilaterally Results & Data Vital Signs (Past 12 Hours) Vital Signs Temp Pulse Pulse Resp BP Pulse Ox 06/14/19 16:56 77 06/14/19 14:58 36.8 C 77 18 144/81 H 94 06/14/19 11:59 36.3 C L 81 20 166/89 H 99 06/14/19 08:11 36.8 C 82 20 139/69 98 Labs reviewed MELD fawn 18 MRI reviewed- liver lesion not classified as hcc or metastatic disease, appears to be stable in size
[2019-06-14] MEDS: FLUTICASONE/VILANTEROL 100/25MCG 14 PUFFS/INHALER INH SCH (20:31)
[2019-06-15] MEDS: ACETAMINOPHEN 325 MG TAB PO PRN (07:54)
[2019-06-15] MEDS: lisinopriL 5 MG TAB PO SCH (07:55)
[2019-06-15] MEDS: PANTOprazole 40 MG TAB PO SCH (07:55)
[2019-06-15 07:56] LABS: INR 2.4 (0.9-1.1)
[2019-06-15] MEDS: dilTIAZem HCL 180 MG CAPCR PO SCH (07:56)
[2019-06-15] MEDS: CYANOCOBALAMIN 500 MCG TABLET (VITAMIN B-12) PO SCH (07:56)
[2019-06-15] MEDS: DICLOFENAC SOD 1% GEL 100 GM TUBE EXT PRN (07:56)
[2019-06-15] MEDS: FUROSEMIDE 80 MG TAB PO SCH (07:56)
[2019-06-15] MEDS: TAMSULOSIN HCL 0.4 MG CAP PO SCH (07:56)
[2019-06-15] MEDS: FOLIC ACID 1 MG TAB PO SCH (07:56)
[2019-06-15] MEDS: carvediloL 3.125 MG TAB PO SCH ×2 (07:57→20:24)
[2019-06-15] MEDS: LACTULOSE SYRUP 30 GM/45 ML UDP PO SCH ×3 (07:57→17:22)
[2019-06-15] MEDS: INSULIN ASPART 100 UNITS/ML 3 ML PEN SC SCH ×4 (08:04→21:15)
--- NOTE | 2019-06-15 11:44 | XRay Report ---
LEFT KNEE 3 VIEWS CLINICAL HISTORY: Left knee pain. FINDINGS: AP, crosstable lateral, and sunrise views of the left knee are compared to study dated 02/14. The skeletal structures are osteopenic. No fracture is identified. There is chronic posttrauma tic deformity of the proximal fibula. There is advanced degenerative narrowing with near complete los s of the joint space and degenerative sclerosis identified in the medial compartment. Moderate narrow ing is seen at the patellofemoral articulation. There are small patellar enthesophytes and marginal o steophytes. A calcified fabella is incidentally noted. There is a large joint effusion. Soft tissue e toby is present around the knee. IMPRESSION: 1. Soft tissue swelling and large joint effusion with no acute osseous abnormality identified. 2. Osteopenia and degenerative change as above, greatest in the medial compartment. Electronically signed by: Bud Scruggs M.D. 06/15/2019 11:42 AM
[2019-06-15] MEDS: TRAMADOL HCL 50 MG TABLET PO PRN ×2 (12:27→18:33)
--- NOTE | 2019-06-15 14:49 | Hospitalist Progress Note ---
Date of Service June 15, 2019 Assessment & Plan (1) Osteoarthritis of left knee: Appears to have an OA flare possibly 2/2 trauma. Tramadol is helping pain. NSAIDs contraindicated and excessive tylenol is relatively contraindicated. May benefit from a cortisone injection? Consulting or thopedics to evaluate. Patient has a Left knee effusion. (2) Metabolic encephalopathy: resolved with treatment of UTI (3) Hepatic encephalopathy: as above. Resolved. (4) Cirrhosis: Known, chronic. No evidence of ascites this admission. Cont lactulose, which is currently on hold after multiple loose BMs this morning. (5) UTI due to extended-spectrum beta lactamase (ESBL) producing Escherichia coli: Ertapenem x 14 days. (6) Atrial fibrillation: chronic, stable. Cont Coreg 3.125mg PO BID, Diltiazem 180mg PO daily, digoxin 0.125mg PO daily. Warfarin, Daily INR. (7) Bone lesion: questionable lumbar spine lesion on recent bone scan. Further workup per PCP. (8) Prostate cancer: Recently diagnosed. Cont outpatient workup. (9) Diastolic dysfunction: -Appears euvolemic on exam, continue furosemide (10) Diabetes mellitus, type 2: At goal on Novolog with correction and carb coverage (11) BPH (benign prostatic hyperplasia): -Continue tamsulosin (12) GERD (gastroesophageal reflux disease): -Continue PPI (13) DVT prophylaxis: coumadin Full Dispo-return home in am after being seen by orthopedics Shey Sullivan DO [facility] Subjective Patient is feeling well. Reports multiple loose bowel movements today as a result of taking the lactulose. Feels slightly weak secondary to this. Patient has an inflamed angry left knee likely secondary to his fall 1 week ago. Pain is improved with tramadol. NSAIDs are contraindicated Tylenol is relatively contraindicated secondary to liver disease. He has had longstanding osteoarthritis in this knee and has been trying to get to see orthopedics as outpatient this is difficult as he is currently incarcerated. We discussed seeing orthopedics while he was here and he would very much appreciate a consult. He is otherwise mentating appropriately today feeling well from a pain standpoint in his abdomen and doing well on current antibiotics. Review of Systems Review of Systems: All systems reviewed & are unremarkable except as noted in Subjective Physical Exam Physical Exam: CONSTITUTIONAL: WNWD, vitals as above, generally well- appearing EYES: normal conjunctivae, no scleral icterus ENT: MMM RESPIRATORY: clear to auscultation bilaterally, no crackles, rales or wheezes, normal respiratory effort CARDIOVASCULAR: regular rate and rhythm, S1 and 2 heard without murmurs, gallops or rubs, no JVD, no peripheral edema GASTROINTESTINAL: normal bowel sounds, soft, nontender, nondistended MUSCULOSKELETAL: strength 5/5 throughout, head is normocephalic and atraumatic. L knee with +effusion and limited flexion 2/2 pain. No erythema, +warmth present. SKIN: warm and dry NEUROLOGIC: CN 2-12 grossly intact, normal cognition, no gross focal deficits. PSYCHIATRIC: alert cooperative and oriented to person, place and time. Results & Data ([facility]) Vital Signs (Past 12 Hours) Vital Signs Temp Pulse Pulse Resp BP Pulse Ox 06/15/19 11:30 36.6 C 74 20 94/53 L 96 06/15/19 07:14 36.3 C L 79 20 150/69 H 98 Medications Administered Current Inpatient Medications Acetaminophen (Tylenol) 500 mg PO Q6H [facility] Stop: 07/15/19 11:59 Carvedilol (Coreg) 3.125 mg PO BID [facility] Stop: 07/12/19 20:59 Last Admin: 06/15/19 07:57 Dose: 3.125 mg Documented by: Cyanocobalamin (Vitamin B-12) 1,000 mcg PO DAILY [facility] Stop: 07/13/19 08:59 Last Admin: 06/15/19 07:56 Dose: 1,000 mcg Documented by: Dextrose (Dextrose 50%) 25 - 50 ml IV UD PRN; Protocol PRN Reason: Hypoglycemia Protocol Stop: 07/12/19 13:34 Diclofenac Sodium (Voltaren 1% Top) 2 gm EXT BID PRN PRN Reason: knee pain Stop: 07/14/19 10:44 Last Admin: 06/15/19 07:56 Dose: 2 gm Documented by: Digoxin (Lanoxin) 0.125 mg PO Q24H [facility] Stop: 07/12/19 15:59 Last Admin: 06/14/19 16:56 Dose: 0.125 mg Documented by: Diltiazem HCl (Cardizem Cd) 180 mg PO QAM [facility] Stop: 07/13/19 08:59 Last Admin: 06/15/19 07:56 Dose: 180 mg Documented by: Fluticasone/Vilanterol (Breo Ellipta 100/25 Mcg Inh) 1 puffs INH QPM [facility] Stop: 07/12/19 20:59 Last Admin: 06/14/19 20:31 Dose: 1 puffs Documented by: Folic Acid (Folvite) 1 mg PO QAM [facility] Stop: 07/13/19 08:59 Last Admin: 06/15/19 07:56 Dose: 1 mg Documented by: Furosemide (Lasix) 80 mg PO QAM [facility] Stop: 07/13/19 08:59 Last Admin: 06/15/19 07:56 Dose: 80 mg Documented by: Glucagon (Glucagen) 1 mg SQ UD PRN; Protocol PRN Reason: Hypoglycemia Protocol Stop: 07/12/19 13:34 Glucose (Dex4 Glucose) 4 - 8 tabs PO UD PRN; Protocol PRN Reason: Hypoglycemia Protocol Stop: 07/12/19 13:34 Glucose (Glucose 40%) 15 - 30 gm PO UD PRN; Protocol PRN Reason: Hypoglycemia Protocol Stop: 07/12/19 13:34 Ertapenem 1,000 mg/ Sodium (Chloride) 60 mls @ 100 mls/hr IV Q24H [facility] Stop: 06/22/19 15:29 Last Infusion: 06/14/19 17:50 Dose: Infused Documented by: Insulin Aspart (Novolog Flexpen) 0 units SC ACHS [facility] Stop: 07/12/19 17:59 Last Admin: 06/15/19 12:29 Dose: 6 units Documented by: Lactulose (Chronulac) 30 gm PO QID [facility] Stop: 07/12/19 16:59 Last Admin: 06/15/19 12:31 Dose: 30 gm Documented by: Lisinopril (Zestril) 5 mg PO QAM [facility] Stop: 07/13/19 08:59 Last Admin: 06/15/19 07:55 Dose: 5 mg Documented by: Miscellaneous (Carbohydrates For Hypoglycemia) 15 - 30 gm PO UD PRN PRN Reason: Hypoglycemia Protocol Stop: 07/12/19 13:34 Pantoprazole Sodium (Protonix) 40 mg PO QDB [facility] Stop: 07/13/19 07:29 Last Admin: 06/15/19 07:55 Dose: 40 mg Documented by: Tamsulosin HCl (Flomax) 0.4 mg PO DAILY [facility] Stop: 07/13/19 08:59 Last Admin: 06/15/19 07:56 Dose: 0.4 mg Documented by: Tramadol HCl (Ultram) 50 - 100 mg PO Q6H PRN PRN Reason: Pain Stop: 07/15/19 11:56 Last Admin: 06/15/19 12:27 Dose: 100 mg Documented by: Warfarin Sodium (Coumadin) 5 mg PO DAILY@1600 [facility] Stop: 07/14/19 15:59 Last Admin: 06/14/19 16:55 Dose: 5 mg Documented by:
[2019-06-15] MEDS: ERTAPENEM SODIUM 1,000 MG in SODIUM CHLORIDE 0.9% 50 ML IV SCH (16:00)
[2019-06-15] MEDS: ACETAMINOPHEN 500 MG TAB PO SCH ×2 (16:19→17:22)
[2019-06-15] MEDS: WARFARIN SOD 5 MG TAB PO SCH (17:29)
[2019-06-15] MEDS: DIGOXIN 0.125 MG TAB PO SCH (17:29)
[2019-06-15] MEDS: FLUTICASONE/VILANTEROL 100/25MCG 14 PUFFS/INHALER INH SCH (20:23)
[2019-06-16] MEDS: ACETAMINOPHEN 500 MG TAB PO SCH ×5 (01:37→23:28)
[2019-06-16 06:58] LABS: Hemoglobin 10.1 g/dL (14.0-18.0); Mean Corpuscular Hemoglobin 32.9 pg (25-34); Mean Corpuscular Hgb Conc 33.7 g/dL (32-36); Mean Corpuscular Volume 97.7 fL (80-100); Mean Platelet Volume 10.4 fL (7.4-10.4); Platelet Count 135 K/uL (130-400); RDW Standard Deviation 60.5 fL (36.4-46.3); Red Blood Count 3.07 M/uL (4.7-6.1); White Blood Count 8.65 K/uL (4.8-10.8)
[2019-06-16 07:12] LABS: Prothrombin Time 34.5 Seconds (9.0-12.0)
[2019-06-16 07:20] LABS: BUN Creatinine Ratio 28.6 (10-20); Calcium 9.1 mg/dl (8.5-10.1); Creatinine Clr Calc Pharmacy 55.5 ml/min; Est GFR (African American) 58.8; Est GFR (Non-African American) 50.7; Magnesium 2.2 mg/dl (1.8-2.4); Potassium 3.8 mmol/L (3.5-5.1)
[2019-06-16 07:26] LABS: INR 3.7 (0.9-1.1)
[2019-06-16] MEDS: dilTIAZem HCL 180 MG CAPCR PO SCH (08:35)
[2019-06-16] MEDS: TRAMADOL HCL 50 MG TABLET PO PRN ×2 (08:36→18:44)
[2019-06-16] MEDS: carvediloL 3.125 MG TAB PO SCH ×2 (08:36→20:28)
[2019-06-16] MEDS: LACTULOSE SYRUP 30 GM/45 ML UDP PO SCH ×2 (08:36→20:27)
[2019-06-16] MEDS: PANTOprazole 40 MG TAB PO SCH (08:38)
[2019-06-16] MEDS: lisinopriL 5 MG TAB PO SCH (08:38)
[2019-06-16] MEDS: CYANOCOBALAMIN 500 MCG TABLET (VITAMIN B-12) PO SCH (08:39)
[2019-06-16] MEDS: TAMSULOSIN HCL 0.4 MG CAP PO SCH ×2 (08:39→08:59)
[2019-06-16] MEDS: FOLIC ACID 1 MG TAB PO SCH (08:39)
[2019-06-16] MEDS: FUROSEMIDE 80 MG TAB PO SCH (08:39)
[2019-06-16] MEDS: INSULIN ASPART 100 UNITS/ML 3 ML PEN SC SCH ×4 (08:40→20:54)
--- NOTE | 2019-06-16 09:10 | Infectious Disease Consult ---
Date of Consultation June 16, 2019 Assessment & Plan (1) UTI due to extended-spectrum beta lactamase (ESBL) producing Escherichia coli: agree with ertapenem, would give 7 days total. History of Present Illness Attending Physician: Shey Sullivan, pt admitted due to change in mental status. found to have ESBL + uti, on ertapenem, was previously on cipro but resistant. blood cultures negative. tolerating abx well. feeling much better. no f/c. no abd pain, no n/v/d. no cp, sob, cough/ wbc 9. Allergies Allergy/AdvReac Type Severity Reaction Status Date / Time doxazosin [From Cardura] Allergy Unknown Unknown Unverified 06/12/19 10:19 prazosin [From Minipress] Allergy Unknown Unknown Unverified 06/12/19 10:19 Home Medications Home Medications Medication Instructions Recorded Confirmed Type cyanocobalamin (vitamin B-12) 1,000 mcg PO DAILY 06/12/18 06/12/19 History [Vitamin B-12] digoxin 0.125 mg PO QPM 06/12/18 06/12/19 History folic acid 1 mg PO QAM 06/12/18 06/12/19 History lactulose 45 ml PO BID PRN 06/12/18 06/12/19 History lisinopril 5 mg PO QAM 06/12/18 06/12/19 History metformin 500 mg PO HS 06/12/18 06/12/19 History nitroglycerin [Nitrostat] 0.4 mg SUBLINGUAL UD PRN 06/12/18 06/12/19 History carvedilol 3.125 mg PO BID 12/06/18 06/12/19 History diltiazem HCl 180 mg PO QAM 12/06/18 06/12/19 History furosemide 80 mg PO QAM 02/06/19 06/12/19 History tamsulosin 0.4 mg PO DAILY 02/06/19 06/12/19 History levalbuterol tartrate 45 2 puffs INH QID PRN 04/08/19 06/12/19 History mcg/actuation aerosol inhaler acetaminophen [Tylenol Extra 1,000 mg PO BID PRN 05/30/19 06/12/19 History Strength] aluminum hydrox-magnesium carb 1 tab PO QID PRN 05/30/19 06/12/19 History [Gaviscon Extra Strength] mirtazapine 15 mg PO HS 05/30/19 06/12/19 History pantoprazole 40 mg PO QDB 05/30/19 06/12/19 History warfarin 5 mg PO PM 05/30/19 06/12/19 History fluticasone propion-salmeterol 1 puff INHALATION BID 06/12/19 06/12/19 History [Wixela Inhub] tramadol 50 mg PO BID PRN 06/12/19 06/12/19 History ertapenem 1 gm IV DAILY #10 ea 06/14/19 Rx Patient History Medical History Allergic rhinitis Anemia Anxiety Atrial fibrillation (Inactive) Bone lesion BPH (benign prostatic hyperplasia) Cataract Bilateral cataracts - had surgery on both eyes; Chronic back pain Cirrhosis (Inactive) Depressive disorder Diabetes mellitus, type 2 Diastolic dysfunction DVT (deep venous thrombosis) (Resolved) GERD (gastroesophageal reflux disease) H/O: CVA (cerebrovascular accident) HTN (hypertension) Incarcerated umbilical hernia (Resolved) Osteoarthritis Peptic ulcer disease Presence of IVC filter (Chronic) Prostate cancer Sciatica Streptococcal bacteremia Thrombocytopenia (Chronic) Tobacco abuse (Chronic) Tremor Surgical History H/O right knee surgery History of appendectomy History of cataract surgery left. 12/2018. 2mg versed. History of cataract surgery Family History Mother , in her 80s Myocardial infarction Stroke Father , in her 60s Myocardial infarction Sister No problems noted. Sister No problems noted. Sister No problems noted. Son No problems noted. Son No problems noted. Son No problems noted. Son No problems noted. Son No problems noted. Daughter No problems noted. Daughter No problems noted. Daughter No problems noted. Daughter No problems noted. Daughter No problems noted. Daughter Unknown family medical history Other Family history non-contributory Social History Preferred Language: Indonesian Communication Ability: Impaired Visual Impairment: No Limitations Hearing Ability: Normal Director Of Cath Lab Required: No Beliefs That Will Affect Care: None marital status: Single Current Living Situation: Other Current Living Situation Comment: Correctional facility current occupational status: unemployed Other Information That Helps Us Care for You: No Feels Safe at Home: Yes Safety Concerns: Feels Safe At This Time Smoking Status: Current every day smoker Tobacco Type: cigarettes ; Age Started Using Tobacco: 11 ; Cigarettes Per Day: 20 ; Second Hand Exposure: No ; Hx Alcohol Use: No Hx Substance Use: No caffeine: Yes (2 cups/day) during the past year weight has: remained stable Review of Systems Review of Systems: All systems reviewed & are unremarkable except as noted in HPI & below Physical Exam Constitutional: WD/WN, vitals as above Eyes: PERRL, conjunctivae normal, anicteric sclerae ENMT: external ear and nose normal, oropharynx normal Neck: normal visual inspection Respiratory: normal respiratory effort, lungs clear to auscultation Cardiovascular: RRR, no murmur, no edema Gastrointestinal (Abdomen): normal bowel sounds, soft, nontender, no hepatosplenomegaly Musculoskeletal: no cyanosis or clubbing, extremities motor strength 5/5 Skin: no rashes, warm and dry Psychiatric: A+Ox3, euthymic affect Results & Data Vital Signs (Past 12 Hours) Vital Signs Temp Pulse Resp BP Pulse Ox 06/16/19 08:00 58 L 18 103/62 91 06/16/19 07:00 36.4 C L 51 L 20 93/52 L 92 06/15/19 23:00 36.8 C 58 L 21 95/48 L 58 L Laboratory Results Microbiology 06/12/19 09:51 Blood Aerobic Blood Culture - Preliminary No growth in Aerobic bottle after 48 hours. 06/12/19 09:51 Blood Anaerobic Blood Culture - Final 06/12/19 09:48 Blood Aerobic Blood Culture - Preliminary No growth in Aerobic bottle after 48 hours. 06/12/19 09:48 Blood Anaerobic Blood Culture - Preliminary No growth in Anaerobic bottle after 48 hours. 06/12/19 12:50 Urine,Straight Cath Urine Culture - Final Escherichia coli ESBL PG Care Time/CCT Total # of Minutes Spent Total Time Spent with Patient: Total time spent is greater than 50% in coordination of care (as documented) at patient's floor/unit and/or counseling patient: Coding Level of Care Code 50717 Inpt Consult Level 4 Diagnoses UTI due to extended-spectrum beta lactamase (ESBL) producing Escherichia coli N39.0; B96.29; Z16.12
[2019-06-16] MEDS ORDERED: ETHYL CHLORIDE AER PER SPRAY 100 ML CAN EXT ONE (09:56)
[2019-06-16] MEDS ORDERED: methylPREDNISolone acetate 80 MG/ML VIAL IA ONE (09:56)
[2019-06-16] MEDS ORDERED: BUPIVACAINE 0.5 % 5 MG/1 ML MPF 30ML VIAL INFIL ONE (09:59)
--- NOTE | 2019-06-16 11:29 | Consultation Report ---
DATE OF CONSULTATION: 06/16/2019 HISTORY OF PRESENT ILLNESS: The patient is a 79-year-old incarcerated male admitted 4 days ago for altered mental status. He was seen in the ED approximately 2 weeks ago for a UTI and discharged on p.o. antibiotics. Again, he was found in his cell with altered mental status and returned to [facility] for evaluation. He has known cirrhosis and hepatic encephalopathy. He was also diagnosed with UTI due to extended spectrum beta lactamase producing E. coli. He was admitted to the hospital. He has been seen by gastroenterology as well as infectious disease. Orthopedics was consulted for left knee pain and effusion. Currently, he is lying in bed, appears comfortable. He is alert and oriented. He does have some obvious left knee swelling upon visualization. There is no erythema. He does have a moderate effusion to palpation. He has discomfort with range of motion. He denies any pain at the hip region. X-RAYS: Reviewed and show bone on bone arthritis of the medial compartment with complete loss of the joint space. He also has moderate degenerative change about the patellofemoral joint with osteophytes. Also of significance is his INR was supratherapeutic and was 10.4 on admission to the hospital. He is on chronic Coumadin therapy for history of DVT. Today, his INR is 3.7. ASSESSMENT: 79-year-old male with left knee effusion, hemarthrosis versus inflammatory effusion secondary to arthritis. PLAN: The above was discussed with the patient. We will order some stuff for an aspiration and/or injection. We will take a look at the aspirate. If it is blood secondary to his supratherapeutic INR, will discuss a corticosteroid injection at that time versus waiting for a period of time. It is just inflammatory, I think we will go ahead proceed with a corticosteroid injection following the aspiration. This will be discussed with Dr. Rogers and we will proceed as indicated. Attending addendum: Patient seen and examined, pain improved since injection. Educated the patient on his underlying arthritis. Rec PT/OT, WBAT LLE, may follow up as outpatient on a as needed basis, . [facility]ALTH[facility]
--- NOTE | 2019-06-16 12:01 | Orthopedic Progress Note ---
Date of Service June 16, 2019 Subjective Pt resting in bed , comfortable Physical Exam Physical Exam: Left knee site confirmed with pt. Lateral knee prepped with betadine. Ethyl Chloride applied, alcohol wipe, and ~ 60 cc of serous, inflammatory fluid aspirated, 1 cc methylprednisolone and 4 cc 0.5% bupivacaine then injected. Pt tolerated well. Fluid sent to lab for cell count, crystals, gram stain, and aerobic/anaerobic cultures. Will follow as indicated. Pt may f/u as outpt for periodic injections. Results & Data ([facility]) Vital Signs (Past 12 Hours) Vital Signs Temp Pulse Resp BP BP Pulse Ox 06/16/19 11:00 36.4 C L 54 L 18 112/67 77/48 L 95 06/16/19 08:00 58 L 18 103/62 91 06/16/19 07:00 36.4 C L 51 L 20 93/52 L 92
[2019-06-16 12:47] LABS: Appearance Synovial Fluid HAZY; Color Synovial Fluid YELLOW; RBC Synovial Fluid (A) < 3000 /uL; Source Synovial Fluid KNEE; WBC Synovial Fluid (A) 31916 /ul (0-200)
[2019-06-16 12:50] LABS: Mononuclear WBC Synovial 3.4 %; Polynuclear WBC Synovial 96.6 %
[2019-06-16] MEDS: ERTAPENEM SODIUM 1,000 MG in SODIUM CHLORIDE 0.9% 50 ML IV SCH (16:24)
[2019-06-16] MEDS: DIGOXIN 0.125 MG TAB PO SCH (16:25)
--- NOTE | 2019-06-16 17:15 | Hospitalist Progress Note ---
Date of Service June 16, 2019 Assessment & Plan (1) Osteoarthritis of left knee: Appears to have an OA flare possibly 2/2 trauma. Tramadol is helping pain. NSAIDs contraindicated and excessive tylenol is relatively contraindicated. Cortisone injection with aspiration of synovial fluid today. Syn merle pending in lab. (2) VICTOR HUGO (acute kidney injury): Mild elevation in creat. Hold lisinopril and Lasix, alexandra in setting of hypotension. Trend BMP. (3) Metabolic encephalopathy: resolved with treatment of UTI (4) Hepatic encephalopathy: as above. Resolved. (5) Cirrhosis: Known, chronic. No evidence of ascites this admission. Cont lactulose, with titration to 2-3 BMs daily. (6) UTI due to extended-spectrum beta lactamase (ESBL) producing Escherichia coli: Ertapenem x [address], (7) Atrial fibrillation: chronic, stable. Held Coreg, Diltiazem because of parameters. Cont dig. Warfarin on hold with elevated INR to 3.7. (8) Bone lesion: questionable lumbar spine lesion on recent bone scan. Further workup per PCP. (9) Prostate cancer: Recently diagnosed. Cont outpatient workup. (10) Diastolic dysfunction: -Appears euvolemic on exam, Lasix on hold 2/2 hypotension. (11) Diabetes mellitus, type 2: At goal on Novolog with correction and carb coverage (12) BPH (benign prostatic hyperplasia): -Continue tamsulosin (13) GERD (gastroesophageal reflux disease): -Continue PPI (14) DVT prophylaxis: supratherapeutic INR Full Dispo-hold in hospital with elevated creat, hypotension and INR creeping up. Also just received steroid injection into knee and not ambulating well yet. Shey Sullivan DO [facility] Hospitalist Subjective Pt feeling better today. Received intra-articular steroids in left knee today. decreased effusion and improved ROM. Denies urinary symptoms with King out. Review of Systems Review of Systems: All systems reviewed & are unremarkable except as noted in Subjective Physical Exam Physical Exam: CONSTITUTIONAL: WNWD, vitals as above, generally well- appearing EYES: normal conjunctivae, no scleral icterus ENT: MMM RESPIRATORY: clear to auscultation bilaterally, no crackles, rales or wheezes, normal respiratory effort CARDIOVASCULAR: regular rate and rhythm, S1 and 2 heard without murmurs, gallops or rubs, no JVD, no peripheral edema GASTROINTESTINAL: normal bowel sounds, soft, nontender, nondistended MUSCULOSKELETAL: strength 5/5 throughout, head is normocephalic and atraumatic. L knee with +effusion that is improved and improved knee flexion. No erythema, +warmth present. SKIN: warm and dry NEUROLOGIC: CN 2-12 grossly intact, normal cognition, no gross focal deficits. PSYCHIATRIC: alert cooperative and oriented to person, place and time. Results & Data ([facility]) Vital Signs (Past 12 Hours) Vital Signs Temp Pulse Pulse Resp BP BP Pulse Ox 06/16/19 16:25 65 06/16/19 15:28 36.7 C 68 16 118/65 94 06/16/19 11:00 36.4 C L 54 L 18 112/67 77/48 L 95 06/16/19 08:00 58 L 18 103/62 91 06/16/19 07:00 36.4 C L 51 L 20 93/52 L 92 Laboratory Results Short CBC 06/16/19 Range/Units 06:31 WBC 8.65 (4.8-10.8) K/uL Hgb 10.1 L (14.0-18.0) g/dL Hct 30.0 L (42-52) % Plt Count 135 (130-400) K/uL BMP 06/16/19 06:31 Sodium 137 Potassium 3.8 Chloride 107 Carbon Dioxide 24 BUN 38 H D Creatinine 1.34 Glucose 118 H Calcium 9.1 Medications Administered Current Inpatient Medications Acetaminophen (Tylenol) 500 mg PO Q6H [facility] Stop: 07/15/19 11:59 Last Admin: 06/16/19 12:34 Dose: 500 mg Documented by: Carvedilol (Coreg) 3.125 mg PO BID [facility] Stop: 07/12/19 20:59 Last Admin: 06/16/19 08:36 Dose: Not Given Documented by: Cyanocobalamin (Vitamin B-12) 1,000 mcg PO DAILY [facility] Stop: 07/13/19 08:59 Last Admin: 06/16/19 08:39 Dose: 1,000 mcg Documented by: Dextrose (Dextrose 50%) 25 - 50 ml IV UD PRN; Protocol PRN Reason: Hypoglycemia Protocol Stop: 07/12/19 13:34 Diclofenac Sodium (Voltaren 1% Top) 2 gm EXT BID PRN PRN Reason: knee pain Stop: 07/14/19 10:44 Last Admin: 06/15/19 07:56 Dose: 2 gm Documented by: Digoxin (Lanoxin) 0.125 mg PO Q24H [facility] Stop: 07/12/19 15:59 Last Admin: 06/16/19 16:25 Dose: 0.125 mg Documented by: Diltiazem HCl (Cardizem Cd) 180 mg PO QAM [facility] Stop: 07/13/19 08:59 Last Admin: 06/16/19 08:35 Dose: Not Given Documented by: Fluticasone/Vilanterol (Breo Ellipta 100/25 Mcg Inh) 1 puffs INH QPM [facility] Stop: 07/12/19 20:59 Last Admin: 06/15/19 20:23 Dose: 1 puffs Documented by: Folic Acid (Folvite) 1 mg PO QAM [facility] Stop: 07/13/19 08:59 Last Admin: 06/16/19 08:39 Dose: 1 mg Documented by: Furosemide (Lasix) 80 [facility] Stop: 07/13/19 08:59 Last Admin: 06/15/19 07:56 Dose: 80 mg Documented by: Glucagon (Glucagen) 1 mg SQ UD PRN; Protocol PRN Reason: Hypoglycemia Protocol Stop: 07/12/19 13:34 Glucose (Dex4 Glucose) 4 - 8 tabs PO UD PRN; Protocol PRN Reason: Hypoglycemia Protocol Stop: 07/12/19 13:34 Glucose (Glucose 40%) 15 - 30 gm PO UD PRN; Protocol PRN Reason: Hypoglycemia Protocol Stop: 07/12/19 13:34 Ertapenem 1,000 mg/ Sodium (Chloride) 60 mls @ 100 mls/hr IV Q24H [facility] Stop: 06/22/19 15:29 Last Infusion: 06/16/19 16:58 Dose: Infused Documented by: Insulin Aspart (Novolog Flexpen) 0 units SC ACHS [facility] Stop: 07/12/19 17:59 Last Admin: 06/16/19 12:35 Dose: 2 units Documented by: Lactulose (Chronulac) 30 gm PO BID [facility] Stop: 07/16/19 08:59 Last Admin: 06/16/19 08:36 Dose: 30 gm Documented by: Lisinopril (Zestril) 5 mg PO QAM [facility] Stop: 07/13/19 08:59 Last Admin: 06/15/19 07:55 Dose: 5 mg Documented by: Miscellaneous (Carbohydrates For Hypoglycemia) 15 - 30 gm PO UD PRN PRN Reason: Hypoglycemia Protocol Stop: 07/12/19 13:34 Pantoprazole Sodium (Protonix) 40 mg PO QDB [facility] Stop: 07/13/19 07:29 Last Admin: 06/16/19 08:38 Dose: 40 mg Documented by: Tamsulosin HCl (Flomax) 0.4 mg PO DAILY [facility] Stop: 07/13/19 08:59 Last Admin: 06/16/19 08:59 Dose: 0.4 mg Documented by: Tramadol HCl (Ultram) 50 - 100 mg PO Q6H PRN PRN Reason: Pain Stop: 07/15/19 11:56 Last Admin: 06/16/19 08:36 Dose: 100 mg Documented by: Warfarin Sodium (Coumadin) 5 mg PO DAILY@1600 [facility] Stop: 07/14/19 15:59 Last Admin: 06/15/19 17:29 Dose: 5 mg Documented by:
[2019-06-16] MEDS: FLUTICASONE/VILANTEROL 100/25MCG 14 PUFFS/INHALER INH SCH (20:26)
[2019-06-17] MEDS: ACETAMINOPHEN 500 MG TAB PO SCH ×4 (05:44→23:18)
[2019-06-17 06:24] LABS: Hematocrit (blood only) 33.1 % (42-52); Hemoglobin 11.6 g/dL (14.0-18.0); Mean Corpuscular Hemoglobin 33.2 pg (25-34); Mean Corpuscular Volume 94.8 fL (80-100); Mean Platelet Volume 10.8 fL (7.4-10.4); Platelet Count 150 K/uL (130-400); RDW Coefficient of Variation 15.9 % (11.5-14.5); RDW Standard Deviation 55.2 fL (36.4-46.3); Red Blood Count 3.49 M/uL (4.7-6.1); White Blood Count 6.43 K/uL (4.8-10.8)
[2019-06-17 06:43] LABS: Prothrombin Time 54.2 Seconds (9.0-12.0)
[2019-06-17 07:35] LABS: BUN Creatinine Ratio 33.3 (10-20); Calcium 9.8 mg/dl (8.5-10.1); Creatinine Clr Calc Pharmacy 58.5 ml/min; Est GFR (African American) 62.7; Est GFR (Non-African American) 54.1
[2019-06-17 07:36] LABS: Potassium 4.6 mmol/L (3.5-5.1)
[2019-06-17] MEDS: LACTULOSE SYRUP 30 GM/45 ML UDP PO SCH ×2 (08:09→21:33)
[2019-06-17] MEDS: dilTIAZem HCL 180 MG CAPCR PO SCH (08:10)
[2019-06-17] MEDS: FOLIC ACID 1 MG TAB PO SCH (08:10)
[2019-06-17] MEDS: INSULIN ASPART 100 UNITS/ML 3 ML PEN SC SCH ×4 (08:10→21:34)
[2019-06-17] MEDS: PANTOprazole 40 MG TAB PO SCH (08:10)
[2019-06-17] MEDS: carvediloL 3.125 MG TAB PO SCH ×2 (08:10→21:33)
[2019-06-17] MEDS: CYANOCOBALAMIN 500 MCG TABLET (VITAMIN B-12) PO SCH (08:10)
[2019-06-17] MEDS: TAMSULOSIN HCL 0.4 MG CAP PO SCH (08:10)
[2019-06-17] MEDS ORDERED: PHYTONADIONE PED 1 MG/0.5ML AMP/SYRG IV ONE (10:30)
[2019-06-17] MEDS ORDERED: PHYTONADIONE 5 MG in SODIUM CHLORIDE 0.9% 50 ML IV SCH (11:00)
[2019-06-17] MEDS ORDERED: INSULIN HUMAN REGULAR PER UNIT 5 UNITS in SYRINGE 4.95 ML IV ONE (11:00)
[2019-06-17] MEDS: ERTAPENEM SODIUM 1,000 MG in SODIUM CHLORIDE 0.9% 50 ML IV SCH (16:44)
[2019-06-17] MEDS: DIGOXIN 0.125 MG TAB PO SCH (16:46)
--- NOTE | 2019-06-17 18:57 | Hospitalist Progress Note ---
Date of Service June 17, 2019 Assessment & Plan (1) Pseudogout: Crystal analysis reveals evidence of pseudogout. He did receive intra- articular dose of steroids which has resolved the situation. (2) VICTOR HUGO (acute kidney injury): Mild elevation in creat. Continue holding lisinopril and Lasix. Trend BMP. (3) Metabolic encephalopathy: resolved with treatment of UTI, however, patient appears more tangential and speaking about things that do not make sense. He is oriented. This may be a toxic effect from steroids versus ertapenem. Hepatic encephalopathy is also a possibility. We will recheck ammonia level in the morning. (4) Hepatic encephalopathy: Resolved. (5) Cirrhosis: Known, chronic. No evidence of ascites this admission. Cont lactulose, with titration to 2-3 BMs daily. (6) UTI due to extended-spectrum beta lactamase (ESBL) producing Escherichia coli: Ertapenem x 7 days per ID recommendations. PICC is in place. (7) Atrial fibrillation: chronic, stable. Continue Coreg, diltiazem, dig. Supratherapeutic INR after 1 dose of warfarin. Suspect the patient has some auto anticoagulation secondary to cirrhosis. Would recommend discontinuing warfarin at this time and letting his INR settle out. May reconsider warfarin in the future as outpatient. (8) Bone lesion: questionable lumbar spine lesion on recent bone scan. Further workup per PCP. (9) Prostate cancer: Recently diagnosed. Cont outpatient workup. (10) Diastolic dysfunction: -Appears euvolemic on exam, Lasix held secondary to mild VICTOR HUGO. (11) Diabetes mellitus, type 2: Blood sugar was uncontrolled this morning secondary to steroid use yesterday. Tightened correction factor with good result. Blood sugar is currently at goal. (12) BPH (benign prostatic hyperplasia): -Continue tamsulosin (13) GERD (gastroesophageal reflux disease): -Continue PPI (14) DVT prophylaxis: supratherapeutic INR Full Dispo-hold in hospital with elevated creat, supratherapeutic INR and no confusion. Ambulation is improved may be beneficial to have PT see him again secondary to prolonged hospitalization. Shey Sullivan DO [facility] Hospitalist Subjective patient appears more confused today. Suspect a reaction to either steroids or ertapenem. He understands he is at [facility] and knows why he is here. He knows his name. He is starting to speak tangentially and not make sense. He also appears rather speedy and agitated moving his hands rapidly. INR today was 6 and he was given vitamin K. He has no evidence of active bleeding. He reports 3 bowel movements this morning with lactulose therapy. He is otherwise tolerating food and remains a febrile. He has no issues with urination. Review of Systems Review of Systems: All systems reviewed & are unremarkable except as noted in Subjective Physical Exam Physical Exam: CONSTITUTIONAL: WNWD, vitals as above, generally well- appearing, does appear somewhat agitated and slightly confused. EYES: normal conjunctivae, no scleral icterus ENT: MMM RESPIRATORY: clear to auscultation bilaterally, no crackles, rales or wheezes, normal respiratory effort CARDIOVASCULAR: regular rate and rhythm, S1 and 2 heard without murmurs, gallops or rubs, no JVD, no peripheral edema GASTROINTESTINAL: normal bowel sounds, soft, nontender, nondistended MUSCULOSKELETAL: strength 5/5 throughout, head is normocephalic and atraumatic. Left knee effusion appears resolved and he has normal range of motion in his left knee with respect to flexion and extension. No erythema and normal temperature of left knee joint. SKIN: warm and dry NEUROLOGIC: CN 2-12 grossly intact, normal cognition, no gross focal deficits. PSYCHIATRIC: alert cooperative and oriented to person, place and time. Results & Data ([facility]) Vital Signs (Past 12 Hours) Vital Signs Temp Pulse Pulse Resp BP BP Pulse Ox 06/17/19 16:46 72 06/17/19 15:07 36.4 C L 68 18 131/66 97 06/17/19 11:56 36.5 C 18 145/77 H 06/17/19 07:51 36.5 C 85 20 141/59 H 96 Laboratory Results Short CBC 06/17/19 Range/Units 06:01 WBC 6.43 (4.8-10.8) K/uL Hgb 11.6 L (14.0-18.0) g/dL Hct 33.1 L (42-52) % Plt Count 150 (130-400) K/uL BMP 06/17/19 06:01 Sodium 135 L Potassium 4.6 D Chloride 104 Carbon Dioxide 24 BUN 42 H Creatinine 1.27 Glucose 257 H Calcium 9.8 Medications Administered Current Inpatient Medications Acetaminophen (Tylenol) 500 mg PO Q6H [facility] Stop: 07/15/19 11:59 Last Admin: 06/17/19 17:35 Dose: 500 mg Documented by: Carvedilol (Coreg) 3.125 mg PO BID [facility] Stop: 07/12/19 20:59 Last Admin: 06/17/19 08:10 Dose: 3.125 mg Documented by: Cyanocobalamin (Vitamin B-12) 1,000 mcg PO DAILY [facility] Stop: 07/13/19 08:59 Last Admin: 06/17/19 08:10 Dose: 1,000 mcg Documented by: Dextrose (Dextrose 50%) 25 - 50 ml IV UD PRN; Protocol PRN Reason: Hypoglycemia Protocol Stop: 07/12/19 13:34 Diclofenac Sodium (Voltaren 1% Top) 2 gm EXT BID PRN PRN Reason: knee pain Stop: 07/14/19 10:44 Last Admin: 06/15/19 07:56 Dose: 2 gm Documented by: Digoxin (Lanoxin) 0.125 mg PO Q24H [facility] Stop: 07/12/19 15:59 Last Admin: 06/17/19 16:46 Dose: 0.125 mg Documented by: Diltiazem HCl (Cardizem Cd) 180 mg PO QAM [facility] Stop: 07/13/19 08:59 Last Admin: 06/17/19 08:10 Dose: 180 mg Documented by: Fluticasone/Vilanterol (Breo Ellipta 100/25 Mcg Inh) 1 puffs INH QPM [facility] Stop: 07/12/19 20:59 Last Admin: 06/16/19 20:26 Dose: 1 puffs Documented by: Folic Acid (Folvite) 1 mg PO QAM [facility] Stop: 07/13/19 08:59 Last Admin: 06/17/19 08:10 Dose: 1 mg Documented by: Furosemide (Lasix) 80 mg PO QAM [facility] Stop: 07/13/19 08:59 Last Admin: 06/15/19 07:56 Dose: 80 mg Documented by: Glucagon (Glucagen) 1 mg SQ UD PRN; Protocol PRN Reason: Hypoglycemia Protocol Stop: 07/12/19 13:34 Glucose (Dex4 Glucose) 4 - 8 tabs PO UD PRN; Protocol PRN Reason: Hypoglycemia Protocol Stop: 07/12/19 13:34 Glucose (Glucose 40%) 15 - 30 gm PO UD PRN; Protocol PRN Reason: Hypoglycemia Protocol Stop: 07/12/19 13:34 Ertapenem 1,000 mg/ Sodium (Chloride) 60 mls @ 100 mls/hr IV Q24H [facility] Stop: 06/22/19 15:29 Last Infusion: 06/17/19 17:25 Dose: Infused Documented by: Insulin Aspart (Novolog Flexpen) 0 units SC ACHS [facility] Stop: 07/17/19 10:59 Last Admin: 06/17/19 17:34 Dose: 8 units Documented by: Lactulose (Chronulac) 30 gm PO BID [facility] Stop: 07/16/19 08:59 Last Admin: 06/17/19 08:09 Dose: 30 gm Documented by: Lisinopril (Zestril) 5 mg PO QAM [facility] Stop: 07/13/19 08:59 Last Admin: 06/15/19 07:55 Dose: 5 mg Documented by: Miscellaneous (Carbohydrates For Hypoglycemia) 15 - 30 gm PO UD PRN PRN Reason: Hypoglycemia Protocol Stop: 07/12/19 13:34 Pantoprazole Sodium (Protonix) 40 mg PO QDB [facility] Stop: 07/13/19 07:29 Last Admin: 06/17/19 08:10 Dose: 40 mg Documented by: Tamsulosin HCl (Flomax) 0.4 mg PO DAILY [facility] Stop: 07/13/19 08:59 Last Admin: 06/17/19 08:10 Dose: 0.4 mg Documented by: Tramadol HCl (Ultram) 50 - 100 mg PO Q6H PRN PRN Reason: Pain Stop: 07/15/19 11:56 Last Admin: 06/16/19 18:44 Dose: 100 mg Documented by:
[2019-06-17] MEDS: FLUTICASONE/VILANTEROL 100/25MCG 14 PUFFS/INHALER INH SCH (21:34)
[2019-06-18] MEDS: ACETAMINOPHEN 500 MG TAB PO SCH ×3 (05:21→17:58)
[2019-06-18 07:34] LABS: Hematocrit (blood only) 34.9 % (42-52); Mean Corpuscular Hemoglobin 33.5 pg (25-34); Mean Corpuscular Hgb Conc 34.4 g/dL (32-36); Mean Corpuscular Volume 97.5 fL (80-100); Mean Platelet Volume 10.7 fL (7.4-10.4); Platelet Count 161 K/uL (130-400); RDW Coefficient of Variation 16.4 % (11.5-14.5); RDW Standard Deviation 58.3 fL (36.4-46.3); Red Blood Count 3.58 M/uL (4.7-6.1)
[2019-06-18 07:47] LABS: INR 1.3 (0.9-1.1); Prothrombin Time 13.2 Seconds (9.0-12.0)
[2019-06-18] MEDS: LACTULOSE SYRUP 30 GM/45 ML UDP PO SCH ×2 (07:53→20:06)
[2019-06-18] MEDS: carvediloL 3.125 MG TAB PO SCH ×2 (07:54→20:06)
[2019-06-18] MEDS: CYANOCOBALAMIN 500 MCG TABLET (VITAMIN B-12) PO SCH (07:54)
[2019-06-18] MEDS: FOLIC ACID 1 MG TAB PO SCH (07:54)
[2019-06-18] MEDS: TAMSULOSIN HCL 0.4 MG CAP PO SCH (07:54)
[2019-06-18] MEDS: INSULIN ASPART 100 UNITS/ML 3 ML PEN SC SCH ×4 (07:55→20:59)
[2019-06-18] MEDS: dilTIAZem HCL 180 MG CAPCR PO SCH (07:55)
[2019-06-18] MEDS: PANTOprazole 40 MG TAB PO SCH (07:55)
[2019-06-18 08:07] LABS: Potassium 4.7 mmol/L (3.5-5.1)
[2019-06-18 08:08] LABS: Albumin Level 2.9 gm/dl (3.4-5.0); BUN Creatinine Ratio 32.5 (10-20); Bilirubin Direct 0.3 mg/dl (0-0.2); Calcium 10.4 mg/dl (8.5-10.1); Creatinine Clr Calc Pharmacy 66.4 ml/min; Magnesium 2.4 mg/dl (1.8-2.4)
[2019-06-18 08:13] LABS: Bilirubin,Total 0.8 mg/dl (0.2-1); Total Protein 7.5 gm/dl (6.4-8.2)
--- NOTE | 2019-06-18 12:24 | Hospitalist Progress Note ---
Date of Service June 18, 2019 Assessment & Plan (1) Confusion: Patient appears to be talking randomly, thinking that he is in group home, Does not appear to be encephalopathic Knows slurred speech, no gait disturbance or asterixis noted Reviewed medication list, avoid sedatives and hypnotics Check ammonia level Continue to monitor (2) Hepatic encephalopathy: Resolved. Patient will be continued with lactulose, (3) Pseudogout: Crystal analysis reveals evidence of pseudogout. (4) VICTOR HUGO (acute kidney injury): Renal function improved to baseline, continue outpatient diuretics (5) Cirrhosis: Appreciate input from gastroenterology: Liver cirrhosis chronic: Meld score 18 Incidental finding in liver lesion during ultrasound and subsequent MRI of abdomen showed stable in size compared to prior imaging in 2018 Hepatocellular carcinoma is a consideration Per gastroenterology patient is likely not a transplant candidate given his current age and in mental status Outpatient oncology input recommended Patient will be continued with low-salt diet 2 g salt daily for liver cirrhosis Limit Tylenol less than 2 g daily Will be discharged on lactulose and Xifaxan(SBP prophylaxis) (6) UTI due to extended-spectrum beta lactamase (ESBL) producing Escherichia coli: Completed ertapenem x 7 days dose per ID recommendations. Patient will not need continued IV antibiotics on discharge (7) Atrial fibrillation: chronic, stable. Continue Coreg, diltiazem, dig. Admitted with supratherapeutic INR 6, patient given vitamin K INR improved to 1.5 Chart reviewed showed prior elevated INR 10.4 on June 12/2020 Given patient's severe underlying liver cirrhosis, auto coagulopathy is very likely Vitamin K inhibitor/Coumadin could cause increased bleeding risk We will discontinue Coumadin, Will update present physician on discharge (8) Bone lesion: questionable lumbar spine lesion on recent bone scan. Further workup per PCP. (9) Prostate cancer: Recently diagnosed. Cont outpatient workup. (10) Diastolic dysfunction: -Appears euvolemic on exam, resume outpatient diuretics (11) Diabetes mellitus, type 2: insulin sliding scale (12) BPH (benign prostatic hyperplasia): -Continue tamsulosin (13) GERD (gastroesophageal reflux disease): -Continue PPI (14) DVT prophylaxis: Ordered for SCD and teds, as INR is 1.3 Coumadin will not be resumed secondary to advanced liver disease CODE STATUS: Full code Disposition: Return back to group home in next 24-48 hours if remains medically stable Subjective Patient noted to ambulate independently, in room, no gait disturbance, no tremor noted Continues to talk tangentially No auditory or visual hallucination noted, No fever or chills, no worsening of abdominal pain, tolerating IV antibiotic well Review of Systems Review of Systems: All systems reviewed & are unremarkable except as noted in HPI & below Psychiatric: + confusion Physical Exam Constitutional: WD/WN, vitals as above no acute distress Eyes: PERRL, conjunctivae normal, anicteric sclerae ENMT: external ear and nose normal, oropharynx normal Neck: trachea midline, no thyromegaly Respiratory: normal respiratory effort, lungs clear to auscultation Cardiovascular: RRR, no murmur, no edema Gastrointestinal (Abdomen): normal bowel sounds, soft, nontender, no hepatosplenomegaly Musculoskeletal: no cyanosis or clubbing, extremities motor strength 5/5 Skin: no rashes, warm and dry Neurologic: PERRL, EOMI, accommodation nl, no face palsy, no dysarthria + focal motor deficit No asterixis, no tremor Psychiatric: Orientation: alert Insight: + limited insight Talking randomly, no overt evidence of encephalopathy, noted, no asterixis, no slurred speech no gait disturbance, Results & Data ([facility]) Vital Signs (Past 12 Hours) Vital Signs Temp Pulse Resp BP Pulse Ox 06/18/19 11:20 36.8 C 75 16 138/53 L 98 06/18/19 07:14 36.5 C 100 H 16 164/87 H 96 06/18/19 04:00 36.7 C 72 20 137/70 99
[2019-06-18] MEDS: DIGOXIN 0.125 MG TAB PO SCH (15:27)
[2019-06-18] MEDS: ERTAPENEM SODIUM 1,000 MG in SODIUM CHLORIDE 0.9% 50 ML IV SCH (15:27)
[2019-06-18] MEDS: FLUTICASONE/VILANTEROL 100/25MCG 14 PUFFS/INHALER INH SCH (20:07)
[2019-06-18] MEDS ORDERED: LORazepam 0.25 MG/0.5 ML VIAL IV STA (21:53)
[2019-06-19] MEDS: ACETAMINOPHEN 500 MG TAB PO SCH ×4 (00:18→17:21)
[2019-06-19 06:05] LABS: INR 1.5 (0.9-1.1); Prothrombin Time 15.4 Seconds (9.0-12.0)
[2019-06-19] MEDS: CYANOCOBALAMIN 500 MCG TABLET (VITAMIN B-12) PO SCH (07:43)
[2019-06-19] MEDS: LACTULOSE SYRUP 30 GM/45 ML UDP PO SCH ×2 (07:43→20:24)
[2019-06-19] MEDS: FOLIC ACID 1 MG TAB PO SCH (07:44)
[2019-06-19] MEDS: dilTIAZem HCL 180 MG CAPCR PO SCH (07:44)
[2019-06-19] MEDS: carvediloL 3.125 MG TAB PO SCH ×2 (07:44→20:24)
[2019-06-19] MEDS: PANTOprazole 40 MG TAB PO SCH (07:44)
[2019-06-19] MEDS: TAMSULOSIN HCL 0.4 MG CAP PO SCH (07:44)
[2019-06-19] MEDS: INSULIN ASPART 100 UNITS/ML 3 ML PEN SC SCH ×4 (08:12→20:29)
[2019-06-19] MEDS: ERTAPENEM SODIUM 1,000 MG in SODIUM CHLORIDE 0.9% 50 ML IV SCH (15:53)
[2019-06-19] MEDS: DIGOXIN 0.125 MG TAB PO SCH (15:54)
--- NOTE | 2019-06-19 18:26 | Hospitalist Progress Note ---
Date of Service June 19, 2019 Assessment & Plan (1) Confusion: Possible hepatic encephalopathy, mental status gradually improved, no slurred speech, no gait disturbance or asterixis noted Reviewed medication list, avoid sedatives and hypnotics Patient will be continued with lactulose (2) Hepatic encephalopathy: Patient will be continued with lactulose, Added rifaximin for SBP prophylaxis (3) Pseudogout: Crystal analysis reveals evidence of pseudogout. (4) VICTOR HUGO (acute kidney injury): Renal function improved to baseline, continue outpatient diuretics (5) Cirrhosis: Appreciate input from gastroenterology: Liver cirrhosis chronic: Meld score 18 Incidental finding in liver lesion during ultrasound and subsequent MRI of abdomen showed stable in size compared to prior imaging in 2018 Hepatocellular carcinoma is a consideration Per gastroenterology patient is likely not a transplant candidate given his cur rent age and in mental status Outpatient oncology input recommended Patient will be continued with low-salt diet 2 g salt daily for liver cirrhosis Limit Tylenol less than 2 g daily Will be discharged on lactulose and Xifaxan(SBP prophylaxis) (6) UTI due to extended-spectrum beta lactamase (ESBL) producing Escherichia coli: Completed ertapenem x 7 days dose per ID recommendations. Does not need IV antibiotic on discharge (7) Atrial fibrillation: chronic, stable. Continue Coreg, diltiazem, dig. Admitted with supratherapeutic INR 6, patient given vitamin K INR improved to 1.5 Chart reviewed showed prior elevated INR 10.4 on June 12/2020 Given patient's severe underlying liver cirrhosis, auto coagulopathy is very likely Patient remains in chronic A. fib, high risk for embolic stroke Coumadin dose will be reduced to 2.5 mg daily Will need close monitoring of PT/INR, to further lower Coumadin dose if needed (8) Bone lesion: questionable lumbar spine lesion on recent bone scan. Will need further work-up as an outpatient (9) Prostate cancer: Recently diagnosed. Cont outpatient workup. (10) Diastolic dysfunction: -Appears euvolemic on exam, resume outpatient diuretics (11) Diabetes mellitus, type 2: insulin sliding scale (12) BPH (benign prostatic hyperplasia): -Continue tamsulosin (13) GERD (gastroesophageal reflux disease): -Continue PPI (14) DVT prophylaxis: Ordered for SCD and teds, as INR is 1.3 Coumadin will not be resumed secondary to advanced liver disease CODE STATUS: Full code Disposition: Plan is to discharge to nursing home tomorrow Subjective Patient does appear to be moved home, orientation still very poor knows that he is in the hospital, No psychosis, visual or auditory hallucination noted Vitals remained stable No fever or chills, no worsening of abdominal pain, Patient completed IV ertapenem for 7 days course for ESBL UTI Will not need continued antibiotic course on discharge Review of Systems Psychiatric: + confusion (Improved) Physical Exam Constitutional: WD/WN, vitals as above no acute distress Eyes: PERRL, conjunctivae normal, anicteric sclerae ENMT: external ear and nose normal, oropharynx normal Neck: trachea midline, no thyromegaly Respiratory: normal respiratory effort, lungs clear to auscultation Cardiovascular: RRR, no murmur, no edema Gastrointestinal (Abdomen): normal bowel sounds, soft, nontender, no he patosplenomegaly Musculoskeletal: no cyanosis or clubbing, extremities motor strength 5/5 Skin: no rashes, warm and dry Neurologic: PERRL, EOMI, accommodation nl, no face palsy, no dysarthria + confused; no focal motor deficits Psychiatric: Orientation: alert Insight: + limited insight Results & Data ([facility]) Vital Signs (Past 12 Hours) Vital Signs Temp Pulse Pulse Pulse Resp BP BP 06/19/19 15:54 78 06/19/19 15:47 36.5 C 79 18 93/53 L 06/19/19 08:09 36.8 C 88 20 152/71 H Pulse Ox 06/19/19 15:54 06/19/19 15:47 94 06/19/19 08:09 95
[2019-06-19] MEDS: FLUTICASONE/VILANTEROL 100/25MCG 14 PUFFS/INHALER INH SCH (20:23)
[2019-06-20] MEDS: ACETAMINOPHEN 500 MG TAB PO SCH ×3 (00:37→12:09)
[2019-06-20] MEDS: lisinopriL 5 MG TAB PO SCH (08:29)
[2019-06-20] MEDS: LACTULOSE SYRUP 30 GM/45 ML UDP PO SCH (08:29)
[2019-06-20] MEDS: TAMSULOSIN HCL 0.4 MG CAP PO SCH (08:29)
[2019-06-20] MEDS: CYANOCOBALAMIN 500 MCG TABLET (VITAMIN B-12) PO SCH (08:29)
[2019-06-20] MEDS: INSULIN ASPART 100 UNITS/ML 3 ML PEN SC SCH ×2 (08:29→12:09)
[2019-06-20] MEDS: FUROSEMIDE 80 MG TAB PO SCH (08:29)
[2019-06-20] MEDS: FOLIC ACID 1 MG TAB PO SCH (08:29)
[2019-06-20] MEDS: PANTOprazole 40 MG TAB PO SCH (08:30)
[2019-06-20] MEDS: carvediloL 3.125 MG TAB PO SCH (08:30)
[2019-06-20] MEDS: dilTIAZem HCL 180 MG CAPCR PO SCH (08:30)
[2019-06-20] MEDS ORDERED: WARFARIN SOD 2.5 MG TAB PO STA (12:49)
--- NOTE | 2019-06-20 13:06 | Hospitalist Progress Note ---
Date of Service June 20, 2019 Assessment & Plan (1) Confusion: Mental status improved, Possible hepatic encephalopathy, Continue on lactulose no slurred speech, no gait disturbance or asterixis noted avoid sedatives and hypnotics (2) Hepatic encephalopathy: Patient will be continued with lactulose, Added rifaximin for SBP prophylaxis (3) Pseudogout: Crystal analysis reveals evidence of pseudogout. Symptom has improved after steroid injection and knee (4) VICTOR HUGO (acute kidney injury): Renal function improved to baseline, continue outpatient diuretics (5) Cirrhosis: Appreciate input from gastroenterology: Liver cirrhosis chronic: Meld score 18 Incidental finding in liver lesion during ultrasound and subsequent MRI of abdomen showed stable in size compared to prior imaging in 2018 Hepatocellular carcinoma is a consideration Per gastroenterology patient is likely not a transplant candidate given his cu rrent age and in mental status Outpatient oncology input recommended Patient will be continued with low-salt diet 2 g salt daily for liver cirrhosis Limit Tylenol less than 2 g daily Will be discharged on lactulose and Xifaxan(SBP prophylaxis) (6) UTI due to extended-spectrum beta lactamase (ESBL) producing Escherichia coli: Completed ertapenem x 7 days dose per ID recommendations. Does not need IV antibiotic on discharge (7) Atrial fibrillation: chronic, stable. Continue Coreg, diltiazem, dig. Admitted with supratherapeutic INR 6, patient given vitamin K INR improved to 1.5 Chart reviewed showed prior elevated INR 10.4 on June 12/2020 Given patient's severe underlying liver cirrhosis, auto coagulopathy is very likely Patient remains in chronic A. fib, high risk for embolic stroke Coumadin dose will be reduced to 2.5 mg daily Will need close monitoring of PT/INR, to further lower Coumadin dose if needed (8) Bone lesion: questionable lumbar spine lesion on recent bone scan. Will need further work-up as an outpatient (9) Prostate cancer: Recently diagnosed. Cont outpatient workup. (10) Diastolic dysfunction: -Appears euvolemic on exam, resume outpatient diuretics (11) Diabetes mellitus, type 2: insulin sliding scale (12) BPH (benign prostatic hyperplasia): -Continue tamsulosin (13) GERD (gastroesophageal reflux disease): -Continue PPI (14) DVT prophylaxis: Ordered for SCD and teds, as INR is 1.3 Coumadin will not be resumed secondary to advanced liver disease CODE STATUS: Full code Disposition: stable to be discharged back to [facility] today Subjective Much calm, cooperative today, Having multiple bowel movements secondary to lactulose No abdominal pain no nausea vomiting, afebrile, completed IV antibiotic course for ESBL UTI Stable to be returned back to [facility] today Review of Systems Psychiatric: + confusion (Improved) Physical Exam Constitutional: WD/WN, vitals as above no acute distress Eyes: PERRL, conjunctivae normal, anicteric sclerae ENMT: external ear and nose normal, oropharynx normal Neck: trachea midline, no thyromegaly Respiratory: normal respiratory effort, lungs clear to auscultation Cardiovascular: RRR, no murmur, no edema Gastrointestinal (Abdomen): normal bowel sounds, soft, nontender, no hepatosplenomegaly Musculoskeletal: no cyanosis or clubbing, extremities motor strength 5/5 Skin: no rashes, warm and dry Neurologic: PERRL, EOMI, accommodation nl, no face palsy, no dysarthria + confused; no focal motor deficits Psychiatric: Orientation: alert Insight: + limited insight Results & Data ([facility]) Vital Signs (Past 12 Hours) Vital Signs Temp Pulse Resp BP Pulse Ox 06/20/19 11:41 36.4 C L 67 16 169/75 H 93 06/20/19 07:21 36.1 C L 56 L 16 157/54 H 97 06/20/19 04:27 36.3 C L 71 16 154/78 H 97
--- NOTE | 2019-06-20 13:06 | Discharge Summary ---
Date of Service June 20, 2019 Admission HPI Per Admitting Provider 79-year-old male who was brought to the ED from [facility] for evaluation of altered mental status. Patient was seen in the ED on 05/30 for episodic confusion and diagnosed with UTI. Patient was initially discharged on Cipro however urine culture grew ESBL E. coli and antibiotic was changed to Macrobid. This morning, patient was found in his cell and he was very confused and lethargic. Patient was then brought to the ED for further evaluation. No further history can be obtained from the patient due to his mental status. I discussed the case with the [facility] at [facility] and they report that the patient typically is compliant with his medications. There were no other symptoms reported. In the ED, ammonia level is found to be 91. INR 10.4. UA suggest possible ongoing infection with trace leuk esterase and 4+ bacteria. Head CT is negative for acute findings. Patient was given IVF and vitamin K 10 mg IV. Principal Diagnosis ESBL UTI treated with IV antibiotics/hepatic encephalopathy: Resolved/liver cirrhosis Discharge Exam Constitutional WD/WN, vitals as above no acute distress Eyes PERRL, conjunctivae normal, anicteric sclerae ENMT external ear and nose normal, oropharynx normal Neck trachea midline, no thyromegaly Respiratory normal respiratory effort, lungs clear to auscultation Cardiovascular RRR, no murmur, no edema Gastrointestinal (Abdomen) normal bowel sounds, soft, nontender, no hepatosplenomegaly Musculoskeletal no cyanosis or clubbing, extremities motor strength 5/5 Skin no rashes, warm and dry Neurologic PERRL, EOMI, accommodation nl, no face palsy, no dysarthria + confused; no focal motor deficits Psychiatric Orientation: alert Insight: + limited insight Discharge Data Allergies Allergy/AdvReac Type Severity Reaction Status Date / Time doxazosin [From Cardura] Allergy Unknown Unknown Unverified 06/12/19 10:19 prazosin [From Minipress] Allergy Unknown Unknown Unverified 06/12/19 10:19 Consultations 06/12/19 10:46 ED Decision to Admit Stat 06/12/19 13:10 Consult Case Management - Discharge Planning Routine 06/14/19 09:41 Consult Infectious Diseases Routine 06/15/19 18:48 Consult Orthopedic Surgery Routine Ordered Studies 06/12/19 09:29 CT head/brain wo con Stat 06/12/19 13:10 US duplex portal hepatic veins Routine US liver Urgent 06/12/19 14:45 US abdomen ltd ascites Routine 06/13/19 14:11 MR abdomen wo con Routine Hospital Course (1) Confusion: Possible hepatic encephalopathy, mental status gradually improved, no slurred speech, no gait disturbance or asterixis noted Reviewed medication list, avoid sedatives and hypnotics Patient will be continued with lactulose (2) Hepatic encephalopathy: Patient will be continued with lactulose, Added rifaximin for SBP prophylaxis (3) Pseudogout: Crystal analysis reveals evidence of pseudogout. (4) VICTOR HUGO (acute kidney injury): Renal function improved to baseline, continue outpatient diuretics (5) Cirrhosis: Appreciate input from gastroenterology: Liver cirrhosis chronic: Meld score 18 Incidental finding in liver lesion during ultrasound and subsequent MRI of abdomen showed stable in size compared to prior imaging in 2018 Hepatocellular carcinoma is a consideration Per gastroenterology patient is likely not a transplant candidate given his current age and in mental status Outpatient oncology input recommended Patient will be continued with low-salt diet 2 g salt daily for liver cirrhosis Limit Tylenol less than 2 g daily Will be discharged on lactulose and Xifaxan(SBP prophylaxis) (6) UTI due to extended-spectrum beta lactamase (ESBL) producing Escherichia coli: Completed ertapenem x 7 days dose per ID recommendations. Does not need IV antibiotic on discharge (7) Atrial fibrillation: chronic, stable. Continue Coreg, diltiazem, dig. Admitted with supratherapeutic INR 6, patient given vitamin K INR improved to 1.5 Chart reviewed showed prior elevated INR 10.4 on June 12/2020 Given patient's severe underlying liver cirrhosis, auto coagulopathy is very likely Patient remains in chronic A. fib, high risk for embolic stroke Coumadin dose will be reduced to 2.5 mg daily Will need close monitoring of PT/INR, to further lower Coumadin dose if needed (8) Bone lesion: questionable lumbar spine lesion on recent bone scan. Will need further work-up as an outpatient (9) Prostate cancer: Recently diagnosed. Cont outpatient workup. (10) Diastolic dysfunction: -Appears euvolemic on exam, resume outpatient diuretics (11) Diabetes mellitus, type 2: insulin sliding scale (12) BPH (benign prostatic hyperplasia): -Continue tamsulosin (13) GERD (gastroesophageal reflux disease): -Continue PPI (14) DVT prophylaxis: Ordered for SCD and teds, as INR is 1.3 Coumadin will not be resumed secondary to advanced liver disease CODE STATUS: Full code Disposition: Stable to be discharged to residential today Update given to present physician Dr. Lizarraga Total Time Total Time Spent Total Time Spent (In Minutes): Approximately 40 minutes Total Time Includes: Examination of the Patient, Discharge Planning and Medication Reconciliation Discharge Plan Discharge Items [facility]position[facility] Reason For Visit: HEPATIC ENCEPHALOPATHY Discharge Diagnosis: ESBL UTI treated with IV antibiotics/hepatic encephalopathy: Resolved/liver cirrhosis Activity: Resume your previous activity Non-emergency contact: Primary Care Provider Call non-emergency contact if: you have any medication questions Follow-up/Referrals: Cortez BOND [Primary Care Provider] - Diet: Low Sodium (2gm) Addtl Attending Provider Instructions: Liver cirrhosis chronic: Meld score 18 Incidental finding in liver lesion during ultrasound and subsequent MRI of abdomen showed stable in size compared to prior imaging in 2018 Hepatocellular carcinoma is a consideration Per gastroenterology patient is likely not a transplant candidate given his current age and in mental status Outpatient oncology input recommended Patient will be continued with low-salt diet 2 g salt daily for liver cirrhosis Limit Tylenol less than 2 g daily Patient is discharged on lactulose/for hepatic encephalopathy and Xifaxan(SBP prophylaxis) High risk for coagulopathies given advanced liver disease/cirrhosis Coumadin dose reduced to 2.5 mg daily Patient will need. Periodic PT/INR check for further adjustment of Coumadin dose Pending Studies at Discharge: Yes Studies:: PT/INR check on 06/23/2019 Stand-Alone Forms: My [facility] Skilled Items Patient informed of condition?: Yes Discharge Level of Care: Other Communicable Disease: No Discharge Prognosis: Stable Lines: None Urinary Catheter: No Medications and DC Order Prescriptions: New rifaximin 550 mg tablet 550 mg PO BID Qty: 60 RF: 0 lactulose 10 gram/15 mL (15 mL) solution 20 gm PO BID Qty: 600 RF: 0 Continued levalbuterol tartrate [Xopenex HFA] 45 mcg/actuation HFA aerosol inhaler 2 puffs INH QID PRN (Reason: Shortness Of Breath Or Wheezing) RF: 0 tamsulosin 0.4 mg Capsule 0.4 mg PO DAILY RF: 0 furosemide 80 mg Tablet 80 mg PO QAM RF: 0 acetaminophen [Tylenol Extra Strength] 500 mg Tablet 1,000 mg PO BID PRN (Reason: Pain) RF: 0 pantoprazole 40 mg Tablet,Delayed Release (Dr/Ec) 40 mg PO QDB RF: 0 mirtazapine 15 mg Tablet 15 mg PO HS RF: 0 Gaviscon Extra Strength 160-105 mg Tablet,Chewable 1 tab PO QID PRN (Reason: Indigestion) RF: 0 fluticasone propion-salmeterol [Wixela Inhub] 100-50 mcg/dose Blister With Device 1 puff INHALATION BID RF: 0 tramadol 50 mg Tablet 50 mg PO BID PRN (Reason: Pain) RF: 0 folic acid 1 mg Tablet 1 mg PO QAM RF: 0 digoxin 125 mcg Tablet 0.125 mg PO QPM RF: 0 metformin 500 mg Tablet 500 mg PO HS RF: 0 lisinopril 5 mg Tablet 5 mg PO QAM RF: 0 cyanocobalamin (vitamin B-12) [Vitamin B-12] 1,000 mcg Tablet 1,000 mcg PO DAILY RF: 0 nitroglycerin [Nitrostat] 0.4 mg Tablet, Sublingual 0.4 mg Sublingual UD PRN (Reason: Chest Pain) RF: 0 lactulose 10 gram/15 mL Solution 45 ml PO BID PRN (Reason: for 3 bms per day) RF: 0 diltiazem HCl 180 mg Capsule,Extended Release 24hr 180 mg PO QAM RF: 0 carvedilol 3.125 mg Tablet 3.125 mg PO BID RF: 0 Changed warfarin 5 mg Tablet 2.5 mg PO PM Qty: 0 RF: 0 Discharge Orders: Discharge Order (Routine); Ordered 06/20/19 Ordered By: Radha Escalante Admission Data Admit Date/Time: 06/12/19 11:41 Attending Provider: Radha Escalante Admit Provider: Dilip Munoz Primary Care Provider: Cortez BNOD Other Providers: Dilip Munoz ; Maria Alejandra Mayen ; Rufino Umanzor Other Interventions: Discharge Summary Assessment (RN) Last Done: 06/20/19 13:23
== END 2019-06-20 16:00 | DRG 441 ==
LOC: ED 09:14 → SUATTDRO 11:41 → 2S 11:41 → 2W 06-13 15:03

== ENCOUNTER 2020-05-07 23:54 | Inpatient (IN) ==
--- NOTE | 2020-05-08 00:17 | Emergency Department Note ---
History of Present Illness General Chief complaint: Abdominal Pain Stated complaint: DIZZINESS/ABDOMINAL PAIN Source: patient and EMS Mode of arrival: EMS Limitations: no limitations History of Present Illness Provider complaint: Dizziness, nausea, abdominal pain Onset (ago): day(s) 3 Location: abdomen Radiation: non-radiation Severity: moderate and similar to prior episodes Current Pain Intensity: 7 Quality: + constant Relieved By: + none Exacerbated By: + eating Associated symptoms: + cough, + diaphoresis, + loss of appetite, + malaise, + nausea/vomiting, + shortness of breath and + weakness; no chest pain, no heada ches and no syncope Treatments prior to arrival: none This is a 79-year-old male who presents via EMS from the [facility] due to concern for low heart rate and low blood pressure. Patient states he has had intermittent dizziness, weakness, nausea over the course of the last month along with intermittent abdominal pain worse with eating that has previously been attributed to biliary disease. EMS reports that on their arrival staff there re ported from the [facility] that his heart rate was in the 30s and his blood pressure was 70/P. EMS reports only transferred him to their letter to go to the ambulance, his heart rate and blood pressure both improved. They placed 2 IVs in route, took a twelve-lead EKG which showed a slow atrial fibrillation in the 50s and 60s. Patient states he does have a history of atrial fibrillation, denies any change in his medications for this, and does take Coumadin. 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 Patient states he was tested for Covid recently and was negative. EMS reported staff at the [facility] could not confirm this.Patient states he also has a history of peptic ulcer disease, states he does take medications for this. States every time he eats he gets the worsening right upper quadrant pain and develops nausea and vomiting. He is uncertain if this is from his gallbladder or from persistent peptic ulcer disease. Patient denies any black or bloody stools. States whenever he stands up he gets very dizzy/lightheaded, becomes very weak and feels as though he may pass out. Pt seen during a time of high acuity and national emergency pandemic while wearing PPE. Home Medications Medication Instructions Recorded Confirmed Type cyanocobalamin (vitamin B-12) 1,000 mcg PO DAILY 06/12/18 05/08/20 History [Vitamin B-12] folic acid 1 mg PO QAM 06/12/18 05/08/20 History lactulose 30 ml PO BID 06/12/18 05/08/20 History lisinopril 5 mg PO QAM 06/12/18 05/08/20 History metformin 500 mg PO HS 06/12/18 05/08/20 History nitroglycerin [Nitrostat] 0.4 mg SUBLINGUAL UD PRN 06/12/18 05/08/20 History diltiazem HCl 180 mg PO QAM 12/06/18 05/08/20 History tamsulosin 0.4 mg PO DAILY 02/06/19 05/08/20 History levalbuterol tartrate 45 2 puffs INH QID PRN 04/08/19 05/08/20 History mcg/actuation aerosol inhaler Gaviscon Extra Strength 1 tab PO QID PRN 05/30/19 05/08/20 History pantoprazole 40 mg PO BID 05/30/19 05/08/20 History paroxetine HCl 20 mg tablet 20 mg PO DAILY 05/04/20 05/08/20 History sucralfate 1 gram tablet 1 g PO QID 05/04/20 05/08/20 History acetaminophen-codeine 1 tab PO TID PRN 05/08/20 05/08/20 History capsaicin 1 applic TOPICAL QID 05/08/20 05/08/20 History diclofenac potassium 50 mg PO BID 05/08/20 05/08/20 History digoxin 250 mcg PO DAILY 05/08/20 05/08/20 History fluticasone propion-salmeterol 1 inh INHALATION BID 05/08/20 05/08/20 History [Wixela Inhub] leuprolide (3 month) [Lupron Depot 22.5 mg IM UD 05/08/20 05/08/20 History (3 month)] mineral oil-hydrophil petrolat 1 applic TOPICAL DAILY 05/08/20 05/08/20 History [DermaPhor] rifaximin [Xifaxan] 550 mg PO BID 05/08/20 05/08/20 History vitamin A and D 1 applic TOPICAL QID 05/08/20 05/08/20 History warfarin 5 mg PO PM 05/08/20 05/08/20 History Allergies Allergy/AdvReac Type Severity Reaction Status Date / Time doxazosin [From Cardura] Allergy Unknown Unknown Unverified 05/05/20 09:50 prazosin [From Minipress] Allergy Unknown Unknown Unverified 05/05/20 09:50 Past Med/Surg History Medical History Allergic rhinitis Anemia Anxiety Atrial fibrillation Bone lesion BPH (benign prostatic hyperplasia) Cataract Bilateral cataracts - had surgery on both eyes; Chronic back pain Chronic pulmonary embolism Cirrhosis Depressive disorder Diabetes mellitus, type 2 Diastolic dysfunction DVT (deep venous thrombosis) GERD (gastroesophageal reflux disease) H/O: CVA (cerebrovascular accident) HTN (hypertension) Incarcerated umbilical hernia Osteoarthritis Peptic ulcer disease Presence of IVC filter Prostate cancer Sciatica Streptococcal bacteremia Thrombocytopenia Tobacco abuse Tremor Surgical History H/O right knee surgery History of appendectomy History of cataract surgery left. 12/2018. 2mg versed. History of cataract surgery Family History Mother , in her 80s Myocardial infarction Stroke Father , in her 60s Myocardial infarction Sister No problems noted. Sister No problems noted. Sister No problems noted. Son No problems noted. Son No problems noted. Son No problems noted. Son No problems noted. Son No problems noted. Daughter No problems noted. Daughter No problems noted. Daughter No problems noted. Daughter No problems noted. Daughter No problems noted. Daughter Unknown family medical history Other Family history non-contributory Social History Smoking Status: Current every day smoker Tobacco Type: Cigarettes Age Started Using Tobacco: 11; Cigarettes Per Day: 20; Second Hand Exposure: No; Do You Dip or Chew Tobacco: No; Tobacco Cessation Education Requested by Patient: No Hx Alcohol Use: No Hx Substance Use: No Preferred Language: Nicaraguan Communication Ability: Effective Visual Impairment: No Limitations Hearing Ability: Normal Electronic Component Processor Required: No Beliefs That Will Affect Care: None marital status: Single Current Living Situation: Other Current Living Situation Comment: [facility] facility current occupational status: unemployed Other Information That Helps Us Care for You: No Feels Safe at Home: Yes Safety Concerns: Feels Safe At This Time caffeine: Yes (2 cups/day) during the past year weight has: remained stable Assistive Devices: None Review of Systems See HPI for pertinent positives & negatives. and A total of 10 systems reviewed and were otherwise negative Physical Exam Vital Signs Vital Signs - 24 hr 05/08/20 00:15 05/08/20 01:30 05/08/20 02:01 Temperature 36.8 C 36.5 C Temperature Source Oral Oral Pulse Rate 73 Pulse Rate [Apical] 66 70 Pulse Rhythm Regular Pulse Strength Normal Respiratory Rate 18 18 24 Respiratory Depth Normal Blood Pressure 121/59 L Blood Pressure [Left Arm] 142/64 H 146/61 H Blood Pressure Mean 79 Blood Pressure Mean [Left Arm] 90 89 Blood Pressure Position Lying Pulse Oximetry 99 100 100 Oxygen Delivery Method Room Air Room Air Room Air Sepsis Recent Fever Within 48 Hours No Sepsis New/Unexplained Change in Mental Status No Sepsis Action Taken by Nursing No Action Required 05/08/20 02:15 05/08/20 02:30 Temperature Temperature Source Pulse Rate Pulse Rate [Apical] 69 66 Pulse Rhythm Pulse Strength Respiratory Rate 18 20 Respiratory Depth Blood Pressure Blood Pressure [Left Arm] 162/63 H 138/60 Blood Pressure Mean Blood Pressure Mean [Left Arm] 96 86 Blood Pressure Position Pulse Oximetry 97 96 Oxygen Delivery Method Room Air Room Air Sepsis Recent Fever Within 48 Hours Sepsis New/Unexplained Change in Mental Status Sepsis Action Taken by Nursing GENERAL: alert, well appearing, well nourished, no distress, non-toxic EYE EXAM: normal conjunctiva, PERRL and EOM's grossly intact OROPHARYNX: no exudate, no erythema, lips, buccal mucosa, and tongue normal and mucous membranes are moist NECK: supple, no nuchal rigidity, no adenopathy, non-tender LUNGS: Clear to auscultation. Normal chest wall mechanics, no w/r/r HEART: no murmurs, S1 normal and S2 normal ABDOMEN: abdomen soft, Pain with palpation over the epigastric and right upper quadrant, normo-active bowel sounds, no masses, no rebound or guarding. BACK: Back is symmetrical on inspection and there is no deformity, no midline tenderness, no CVA tenderness. SKIN: no rashes and no bruising UPPER EXTREMITIES: upper extremities are grossly normal. FROM, nml pulses b/l. LOWER EXTREMITIES: No pitting edema. FROM, nml pulses b/l. NEURO EXAM: Normal sensorium, cranial nerves II-XII grossly intact, normal speech, no gross weakness of arms, no gross weakness of legs. Gross sensation intact. Course Course 0019: On review of EMR, patient seen and evaluated by Dr. Fregoso, general surgery on May 05. He felt patient's abdominal pain, nausea and vomiting were likely due to to underlying biliary disease, and are attempting to make plans to schedule an outpatient cholecystectomy. 0111: Patient updated on results thus far. Patient denies any prior need for blood transfusion. Last EGD in 1978, has never had a colonoscopy. States doug on clovis had been changing his coumadin dosing recently. Denies black/bloody stools, blood in emesis, hemoptysis, nosebleeds. Denies syncope or head injury from recent dizziness. Discussed risks/benefits to blood transfusion, pt verbalized and was in agreement with plan and gave verbal consen t for blood transfusion. Antibiotics chosen for UTI based on prior urinary cultures which grew out an ESBL. 0150: Discussed with Dr. Clarke. Administered Medications Acetaminophen/Codeine Phosphate (Acetaminophen W/Codeine #3 1 Tab) 1 tab PO TID PRN PRN Reason: Pain Stop: 06/07/20 14:32 Last Admin: 05/08/20 14:43 Dose: 1 tab Documented by: [id number] Capsaicin (Capsaicin Cr 0.075% 60 Gm Tube) 1 appln EXT QID STEPHANE Stop: 06/07/20 08:59 Last Admin: 05/08/20 21:09 Dose: 1 appln Documented by: [id number] Admin: 05/08/20 16:35 Dose: 1 appln Documented by: [id number] Admin: 05/08/20 12:35 Dose: Not Given Documented by: [id number] Admin: 05/08/20 08:36 Dose: 1 appln Documented by: [id number] Cyanocobalamin (Cyanocobalamin 500 Mcg Tablet (Vitamin B-12)) 1,000 mcg PO DAILY STEPHANE Stop: 06/07/20 08:59 Last Admin: 05/08/20 08:35 Dose: 1,000 mcg Documented by: [id number] Digoxin (Digoxin 0.25 Mg Tab) 0.25 mg PO DAILY@1600 [facility] Stop: 06/07/20 15:59 Last Admin: 05/08/20 16:35 Dose: 0.25 mg Documented by: [id number] Diltiazem HCl (Diltiazem Hcl 180 Mg Capcr) 180 mg PO QAM [facility] Stop: 06/07/20 08:59 Last Admin: 05/08/20 08:34 Dose: 180 mg Documented by: [id number] Emollient Ointment (Emollient Ointment 1 Gm) 1 gm EXT DAILY STEPHANE Stop: 06/07/20 08:59 Last Admin: 05/08/20 10:06 Dose: Not Given Documented by: [id number] Fluticasone/Vilanterol (Fluticasone/Vilanterol 100/25mcg 14 Puffs/Inhaler) 1 puffs INH DAILY [facility] Stop: 06/07/20 08:59 Last Admin: 05/08/20 08:35 Dose: 1 puffs Documented by: [id number] Folic Acid (Folic Acid 1 Mg Tab) 1 mg PO QAM [facility] Stop: 06/07/20 08:59 Last Admin: 05/08/20 08:34 Dose: 1 mg Documented by: [id number] Pantoprazole Sodium 40 mg/ (Dextrose) 100 mls @ 20 mls/hr IV Q5H [facility] Stop: 06/07/20 03:59 Last Admin: 05/08/20 20:04 Dose: 8 mg/hr, 20 mls/hr Documented by: [id number] Infusion: 05/08/20 19:43 Dose: 8 mg/hr, 20 mls/hr Documented by: [id number] Admin: 05/08/20 14:43 Dose: 8 mg/hr, 20 mls/hr Documented by: [id number] Infusion: 05/08/20 14:43 Dose: 8 mg/hr, 20 mls/hr Documented by: [id number] Admin: 05/08/20 10:01 Dose: 8 mg/hr, 20 mls/hr Documented by: [id number] Infusion: 05/08/20 09:33 Dose: 8 mg/hr, 20 mls/hr Documented by: [id number] Admin: 05/08/20 04:33 Dose: 8 mg/hr, 20 mls/hr Documented by: [id number] Ertapenem 1,000 mg/ Sodium (Chloride) 60 mls @ 100 mls/hr IV Q24H [facility] Stop: 05/18/20 05:59 Last Infusion: 05/08/20 06:31 Dose: 0 mls/hr Documented by: [id number] Admin: 05/08/20 05:54 Dose: 100 mls/hr Documented by: [id number] Sodium Chloride (Nss 1000ml) 1,000 mls @ 50 mls/hr IV .Q20H [facility] Stop: 06/07/20 04:59 Last Infusion: 05/08/20 13:32 Dose: 50 mls/hr Documented by: [id number] Infusion: 05/08/20 10:46 Dose: 0 mls/hr Documented by: [id number] Admin: 05/08/20 05:54 Dose: 50 mls/hr Documented by: [id number] Lactulose (Lactulose Syrup 20 Gm/30 Ml Udc) 20 gm PO BID [facility] Stop: 06/07/20 08:59 Last Admin: 05/08/20 21:06 Dose: 20 gm Documented by: [id number] Admin: 05/08/20 08:43 Dose: Not Given Documented by: [id number] Levalbuterol HCl (Levalbuterol Tartrate 15 Gm Hfa.Aer.Ad) 2 puffs INH QID PRN PRN Reason: Shortness Of Breath Or Wheezing Stop: 06/07/20 03:42 Last Admin: 05/08/20 22:18 Dose: 2 puffs Documented by: [id number] Lisinopril (Lisinopril 5 Mg Tab) 5 mg PO QAM [facility] Stop: 06/07/20 08:59 Last Admin: 05/08/20 08:43 Dose: Not Given Documented by: [id number] Paroxetine HCl (Paroxetine Hcl 20 Mg Tab) 20 mg PO DAILY [facility] Stop: 06/07/20 08:59 Last Admin: 05/08/20 08:34 Dose: 20 mg Documented by: [id number] Rifaximin (Rifaximin 550 Mg Tablet) 550 mg PO BID [facility] Stop: 06/07/20 08:59 Last Admin: 05/08/20 21:07 Dose: 550 mg Documented by: [id number] Admin: 05/08/20 08:36 Dose: 550 mg Documented by: [id number] Sucralfate (Sucralfate 1 Gm Tab) 1 gm PO QID [facility] Stop: 06/07/20 08:59 Last Admin: 05/08/20 21:07 Dose: 1 gm Documented by: [id number] Admin: 05/08/20 16:35 Dose: 1 gm Documented by: [id number] Admin: 05/08/20 12:34 Dose: 1 gm Documented by: [id number] Admin: 05/08/20 10:06 Dose: 1 gm Documented by: [id number] Tamsulosin HCl (Tamsulosin Hcl 0.4 Mg Cap) 0.4 mg PO DAILY [facility] Stop: 06/07/20 08:59 Last Admin: 05/08/20 08:35 Dose: 0.4 mg Documented by: [id number] Discontinued Medications Fentanyl Citrate (Fentanyl Citrate 100 Mcg/2 Ml Vial) 50 mcg IV Q15M PRN PRN Reason: Pain Stop: 05/22/20 02:40 Last Admin: 05/08/20 02:46 Dose: 50 mcg Documented by: [id number] Phytonadione 5 mg/ Sodium (Chloride) 50.5 mls @ 101 mls/hr IV ONE ONE Stop: 05/08/20 01:24 Last Infusion: 05/08/20 02:33 Dose: 0 mls/hr Documented by: [id number] Admin: 05/08/20 02:03 Dose: 101 mls/hr Documented by: [id number] Pantoprazole Sodium 40 mg/ (Syringe) 10 mls @ 5 mls/min IV NOW ONE Stop: 05/08/20 00:56 Last Admin: 05/08/20 02:03 Dose: 5 mls/min Documented by: [id number] Ceftriaxone Sodium (Rocephin) 2,000 mg in 70 mls @ 140 mls/hr IV NOW STA Stop: 05/08/20 01:52 Last Admin: 05/08/20 02:37 Dose: Not Given Documented by: [id number] Piperacillin Sod/Tazobactam Sod (Zosyn) 4.5 gm in 120 mls @ 240 mls/hr IV NOW ONE Stop: 05/08/20 01:56 Last Infusion: 05/08/20 03:22 Dose: 0 mls/hr Documented by: [id number] Admin: 05/08/20 02:34 Dose: 240 mls/hr Documented by: [id number] Phytonadione 2.5 mg/ Sodium (Chloride) 50.25 mls @ 100.5 mls/hr IV ONE ONE Stop: 05/08/20 04:12 Last Infusion: 05/08/20 04:38 Dose: 0 mls/hr Documented by: [id number] Admin: 05/08/20 04:03 Dose: 100.5 mls/hr Documented by: [id number] Insulin Aspart (Insulin Aspart 100 Units/Ml 3 Ml Pen) 0 units SC ACHS [facility] Stop: 06/07/20 07:29 Last Admin: 05/08/20 17:37 Dose: Not Given Documented by: [id number] Admin: 05/08/20 11:38 Dose: Not Given Documented by: [id number] Cosigned by: [id number] Admin: 05/08/20 08:25 Dose: Not Given Documented by: [id number] Cosigned by: [id number] Ioversol (Ioversol 100ml) 93 ml IV ONCE ONE Stop: 05/08/20 02:06 Last Admin: 05/08/20 02:05 Dose: 93 ml Documented by: [id number] Critical Care Time Critical Care Time: Yes Total Critical Care Time: 48 Critical care of 48 min performed to assess and manage high likelihood of life-threatening anemia, involving labs and imaging performed with assessment to evaluate dizziness and anemia diagnosis with frequent reassessment. This time includes bedside time, treatment discussions with patient/family/consultants, documentation time and excludes procedure time. Medical Decision Making Differential Diagnosis .Differential diagnosis includes etiologies such as benign positional vertigo, dehydration, hypovolemia, anemia, tumor, infection, hypoglycemia, electrolyte abnormalities, cardiac sources, intracerebral event, toxicologic, neurologic, as well as others were entertained. Medical Records Attestation: I reviewed the patient's medical records. Home Medications Current Medication List: was personally reviewed by me Laboratory Data Attestation: I reviewed the patient's lab results. Result diagrams: 05/08/20 18:58 05/08/20 10:08 Lab Results 05/08/20 05/08/20 05/08/20 Range/Units 00:00 00:00 00:00 WBC 6.91 (4.8-10.8) K/uL RBC 1.91 L (4.7-6.1) M/uL Hgb 6.5 L* (14.0-18.0) g/dL Hct 18.8 L* (42-52) % MCV 98.4 (80-100) fL MCH 34.0 (25-34) pg MCHC 34.6 (32-36) g/dL RDW Std Deviation 54.6 H (36.4-46.3) fL RDW Coeff of Charo 15.8 H (11.5-14.5) % Plt Count 112 L (130-400) K/uL MPV 10.3 (7.4-10.4) fL Immature Gran % (Auto) 0.3 % Neut % (Auto) 78.1 % Lymph % (Auto) 14.0 % Roberts % (Auto) 6.5 % Eos % (Auto) 0.7 % Baso % (Auto) 0.4 % Neut # (Auto) 5.39 (1.4-6.5) K/uL Lymph # (Auto) 0.97 L (1.2-3.4) K/uL Roberts # (Auto) 0.45 (0.11-0.59) K/uL Eos # (Auto) 0.05 (0-0.5) K/uL Baso # (Auto) 0.03 (0-0.2) K/uL Immature Gran # (Auto) 0.02 (0.00-0.02) K/uL Polychromasia 1+ PT > 90.0 H (9.0-12.0) Seconds INR > 9.7 H* (0.9-1.1) Sodium 139 (136-145) mmol/L Potassium 4.9 (3.5-5.1) mmol/L Chloride 110 H (98-107) mmol/L Carbon Dioxide 23 (21-32) mmol/L Anion Gap 6.0 (3-11) BUN 47 H (7-18) mg/dl Creatinine 1.09 (0.6-1.4) mg/dl Est Cr Clr Drug Dosing 66.0 ml/min Est GFR ( Amer) 75.5 Est GFR (Non-Af Amer) 65.1 BUN/Creatinine Ratio 42.9 H (10-20) Glucose 136 H (70-99) mg/dl Lactate (0.4-2.0) mmol/L Calcium 8.5 (8.5-10.1) mg/dl Magnesium 2.3 (1.8-2.4) mg/dl Total Bilirubin 0.5 (0.2-1) mg/dl AST 25 (15-37) U/L ALT 16 (12-78) U/L Alkaline Phosphatase 70 (45-117) U/L Troponin I 0.022 (0-0.045) ng/ml Total Protein 5.4 L (6.4-8.2) gm/dl Albumin 2.4 L (3.4-5.0) gm/dl Globulin 3.0 (2.5-4.0) gm/dl Albumin/Globulin Ratio 0.8 L (0.9-2) Lipase 66 L (73-393) U/L Procalcitonin (0-0.5) ng/ml Specimen Hemolysis Digoxin (0.8-2.0) ng/ml COVID-19 Eval Order SARS-CoV-2 (PCR) (Negative) Influenza Type A (PCR) (Neg) Influenza Type B (PCR) (Neg) RSV (RT-PCR) (Neg) SARS-CoV-2 Ag (Rapid) Blood Type Blood Type Recheck Antibody Screen Crossmatch 05/08/20 05/08/20 05/08/20 Range/Units 00:00 00:00 00:00 WBC (4.8-10.8) K/uL RBC (4.7-6.1) M/uL Hgb (14.0-18.0) g/dL Hct (42-52) % MCV (80-100) fL MCH (25-34) pg MCHC (32-36) g/dL RDW Std Deviation (36.4-46.3) fL RDW Coeff of Charo (11.5-14.5) % Plt Count (130-400) K/uL MPV (7.4-10.4) fL Immature Gran % (Auto) % Neut % (Auto) % Lymph % (Auto) % Roberts % (Auto) % Eos % (Auto) % Baso % (Auto) % Neut # (Auto) (1.4-6.5) K/uL Lymph # (Auto) (1.2-3.4) K/uL Roberts # (Auto) (0.11-0.59) K/uL Eos # (Auto) (0-0.5) K/uL Baso # (Auto) (0-0.2) K/uL Immature Gran # (Auto) (0.00-0.02) K/uL Polychromasia PT (9.0-12.0) Seconds INR (0.9-1.1) Sodium (136-145) mmol/L Potassium (3.5-5.1) mmol/L Chloride (98-107) mmol/L Carbon Dioxide (21-32) mmol/L Anion Gap (3-11) BUN (7-18) mg/dl Creatinine (0.6-1.4) mg/dl Est Cr Clr Drug Dosing ml/min Est GFR ( Amer) Est GFR (Non-Af Amer) BUN/Creatinine Ratio (10-20) Glucose (70-99) mg/dl Lactate (0.4-2.0) mmol/L Calcium (8.5-10.1) mg/dl Magnesium (1.8-2.4) mg/dl Total Bilirubin (0.2-1) mg/dl AST (15-37) U/L ALT (12-78) U/L Alkaline Phosphatase (45-117) U/L Troponin I (0-0.045) ng/ml Total Protein (6.4-8.2) gm/dl Albumin (3.4-5.0) gm/dl Globulin (2.5-4.0) gm/dl Albumin/Globulin Ratio (0.9-2) Lipase (73-393) U/L Procalcitonin 0.06 (0-0.5) ng/ml Specimen Hemolysis Digoxin 1.0 (0.8-2.0) ng/ml COVID-19 Eval Order CovFluRsv at [facility] SARS-CoV-2 (PCR) (Negative) Influenza Type A (PCR) (Neg) Influenza Type B (PCR) (Neg) RSV (RT-PCR) (Neg) SARS-CoV-2 Ag (Rapid) Blood Type Blood Type Recheck Antibody Screen Crossmatch 05/08/20 05/08/20 05/08/20 Range/Units 00:13 01:09 01:35 WBC (4.8-10.8) K/uL RBC (4.7-6.1) M/uL Hgb (14.0-18.0) g/dL Hct (42-52) % MCV (80-100) fL MCH (25-34) pg MCHC (32-36) g/dL RDW Std Deviation (36.4-46.3) fL RDW Coeff of Charo (11.5-14.5) % Plt Count (130-400) K/uL MPV (7.4-10.4) fL Immature Gran % (Auto) % Neut % (Auto) % Lymph % (Auto) % Roberts % (Auto) % Eos % (Auto) % Baso % (Auto) % Neut # (Auto) (1.4-6.5) K/uL Lymph # (Auto) (1.2-3.4) K/uL Roberts # (Auto) (0.11-0.59) K/uL Eos # (Auto) (0-0.5) K/uL Baso # (Auto) (0-0.2) K/uL Immature Gran # (Auto) (0.00-0.02) K/uL Polychromasia PT (9.0-12.0) Seconds INR (0.9-1.1) Sodium (136-145) mmol/L Potassium (3.5-5.1) mmol/L Chloride (98-107) mmol/L Carbon Dioxide (21-32) mmol/L Anion Gap (3-11) BUN (7-18) mg/dl Creatinine (0.6-1.4) mg/dl Est Cr Clr Drug Dosing ml/min Est GFR ( Amer) Est GFR (Non-Af Amer) BUN/Creatinine Ratio (10-20) Glucose (70-99) mg/dl Lactate (0.4-2.0) mmol/L Calcium (8.5-10.1) mg/dl Magnesium (1.8-2.4) mg/dl Total Bilirubin (0.2-1) mg/dl AST (15-37) U/L ALT (12-78) U/L Alkaline Phosphatase (45-117) U/L Troponin I (0-0.045) ng/ml Total Protein (6.4-8.2) gm/dl Albumin (3.4-5.0) gm/dl Globulin (2.5-4.0) gm/dl Albumin/Globulin Ratio (0.9-2) Lipase (73-393) U/L Procalcitonin (0-0.5) ng/ml Specimen Hemolysis Digoxin (0.8-2.0) ng/ml COVID-19 Eval Order SARS-CoV-2 (PCR) NEGATIVE (Negative) Influenza Type A (PCR) Negative (Neg) Influenza Type B (PCR) Negative (Neg) RSV (RT-PCR) Negative (Neg) SARS-CoV-2 Ag (Rapid) Cancelled Blood Type O Positive Blood Type Recheck Antibody Screen NEGATIVE Crossmatch See Detail 05/08/20 05/08/20 Range/Units 02:15 02:15 WBC (4.8-10.8) K/uL RBC (4.7-6.1) M/uL Hgb (14.0-18.0) g/dL Hct (42-52) % MCV (80-100) fL MCH (25-34) pg MCHC (32-36) g/dL RDW Std Deviation (36.4-46.3) fL RDW Coeff of Charo (11.5-14.5) % Plt Count (130-400) K/uL MPV (7.4-10.4) fL Immature Gran % (Auto) % Neut % (Auto) % Lymph % (Auto) % Roberts % (Auto) % Eos % (Auto) % Baso % (Auto) % Neut # (Auto) (1.4-6.5) K/uL Lymph # (Auto) (1.2-3.4) K/uL Roberts # (Auto) (0.11-0.59) K/uL Eos # (Auto) (0-0.5) K/uL Baso # (Auto) (0-0.2) K/uL Immature Gran # (Auto) (0.00-0.02) K/uL Polychromasia PT (9.0-12.0) Seconds INR (0.9-1.1) Sodium (136-145) mmol/L Potassium (3.5-5.1) mmol/L Chloride (98-107) mmol/L Carbon Dioxide (21-32) mmol/L Anion Gap (3-11) BUN (7-18) mg/dl Creatinine (0.6-1.4) mg/dl Est Cr Clr Drug Dosing ml/min Est GFR ( Amer) Est GFR (Non-Af Amer) BUN/Creatinine Ratio (10-20) Glucose (70-99) mg/dl Lactate 1.1 (0.4-2.0) mmol/L Calcium (8.5-10.1) mg/dl Magnesium (1.8-2.4) mg/dl Total Bilirubin (0.2-1) mg/dl AST (15-37) U/L ALT (12-78) U/L Alkaline Phosphatase (45-117) U/L Troponin I (0-0.045) ng/ml Total Protein (6.4-8.2) gm/dl Albumin (3.4-5.0) gm/dl Globulin (2.5-4.0) gm/dl Albumin/Globulin Ratio (0.9-2) Lipase (73-393) U/L Procalcitonin (0-0.5) ng/ml Specimen Hemolysis Digoxin (0.8-2.0) ng/ml COVID-19 Eval Order SARS-CoV-2 (PCR) (Negative) Influenza Type A (PCR) (Neg) Influenza Type B (PCR) (Neg) RSV (RT-PCR) (Neg) SARS-CoV-2 Ag (Rapid) Blood Type Blood Type Recheck O Positive Antibody Screen Crossmatch Imaging Data My Impression: X-ray: I interpreted the following studies. Chest: A single view study of the chest was reviewed and was negative for cardiomegaly, focal infiltrate, effusion, pulmonary edema, or wide mediastinum. Radiologist's Impression: CT head: No intracranial hemorrhage, mass-effect, or edema. Parenchymal atrophy and chronic microvascular ischemic changes. Paranasal sinuses and mastoid air cells are clear. No fracture. Radiologist: Petros Alcantara MD CT abdomen and pelvis with contrast: Cirrhotic liver. Low-attenuation lesion within the inferior right hepatic lobe measuring 2.3 x 1.5 cm. Appearance unchanged from the prior MRI 08/19/2019. That dictation is not available to me however it appeared to represent hemangioma by MRI. Correlate with the prior dictation. Cholelithiasis without evidence of acute cholecystitis. Trace fluid along the hepatic margin is likely reactive to the liver. Patent portal vein. Portosystemic collaterals present. Unilateral right kidney. Sigmoid diverticulosis without diverticulitis. Normal appendix. Lumbar scoliosis and degenerative changes. Radiologist: Petros Alcantara MD ECG Data Attestation: I personally reviewed and interpreted this ECG as follows: Indication: + weakness Rate (beats per minute): 64 Rhythm: + atrial fibrillation ECG Intervals/blocks: + IVCD and + Normal QT ECG Oneco: + Left axis deviation ECG ST segments: + Nonspecific ST abnormalities MDM Narrative This is a 79-year-old male who presents from the [facility] due to worsening diz ziness, nausea in addition to his ongoing abdominal pain over the last month. 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 Patient is anticoagulated due to history of atrial fibrillation. Patient states they have been adjusting his Coumadin recently. Patient states the dizziness, nausea, and near syncopal events have been worse over the last 3 days. Patient denied any fevers or chills, cough or cold, or bleeding from any site including melena. Patient was initially bradycardic and hypotensive for EMS however rapidly improved as they were preparing to transport the patient, had no further episodes in route, and was hemodynamically stable on arrival here with a A. fib in the 50s and 60s and normal blood pressure. Patient was maintained on maintenance rate IV fluids as a precaution and placed on a alarm security or surveillance monitor. Labs are drawn and sent, Covid swab performed, chest x-ray performed in addition. After additional review of EMR given the patient's recent outpatient evaluation for the ongoing abdominal pain, nausea and vomiting, it appeared that this was felt to be secondary to cholelithiasis and biliary colic. Patient had seen general surgery within the last several days and plans were made to go ahead and schedule an elective cholecystectomy. Patient found here to have a hemoglobin less than 7, and INR came back markedly elevated greater than our normal range. A type and screen was added, patient gave consent for blood transfusion, blood was ordered, vitamin K was ordered for reversal. Patient again denied noting any bleeding from any source, denied any prior history of anemia or need for blood transfusion. Patient does admit to the prior history of cirrhosis, he denied ever being told he had esophageal varices. CT performed in addition, and showed no evidence of ascites, varices, acute infectious or inflammatory pathology. No evidence of perforation or active bleeding. Patient was given a dose of Protonix down here, and I discussed the drip with the hospitalist given his history as well as her national protonic shortage. Patient did complain of dysuria on review of systems, UA did result abnormally and consistent with a likely urinary tract infection. On review of prior urine cultures, patient has grown out an E. coli ESBL. Prior sensitivities did indicate it would be sensitive to Zosyn, patient was given a dose of this in the emergency room also. Patient had no other new or evolving symptoms in the emergency room. Did discuss the case with the hospitalist for additional inpatient evaluation management, and likely need for GI evaluation and intervention. Digital rectal exam not performed here due to concern for trauma given markedly elevated INR. If patient does have a bowel movement, we can then test for occult blood. Given patient's remote history of peptic ulcer disease despite daily use of omeprazole per records, an upper GI bleed would be the most likely cause at this time. Hospitalist will evaluate and decide on additional Protonix drip. I do not feel this time patient required an octreotide drip given no history of varices, al though this could be considered also. Patient did receive 1 unit of blood transfused in the emergency room. Repeat H&H as well as repeat PT/INR were ordered. Hospitalist did add additional units of blood. An order was placed for continuous cardiac monitoring. The monitor shows a rate of 62_ with a.fib__ rhythm. Impression & Plan Dizziness, Atrial fibrillation, Supratherapeutic INR, Abdominal pain, Nausea & vomiting, Anemia, Thrombocytopenia, Peptic ulcer disease, Cirrhosis, Acute UTI (urinary tract infection) Discharge Plan Visit Data Chief Complaint: Abdominal Pain Stated Complaint: DIZZINESS/ABDOMINAL PAIN ED Provider: Inge Araujo Discharge Problem: Dizziness, Atrial fibrillation, Supratherapeutic INR, Abdominal pain, Nausea & vomiting, Anemia, Thrombocytopenia, Peptic ulcer disease, Cirrhosis, Acute UTI (urinary tract infection) Patient Disposition: Admitted As Inpatient Discharge Instructions Interventions: ED Discharge Assessment Last Done: 05/08/20 03:40 Discharge Problem: Atrial fibrillation Qualifiers: Atrial fibrillation type: unspecified chronic Qualified Code(s): I48.20 - Chronic atrial fibrillation, unspecified Abdominal pain Qualifiers: Abdominal location: right upper quadrant Qualified Code(s): R10.11 - Right upper quadrant pain Nausea & vomiting Qualifiers: Vomiting type: unspecified Vomiting Intractability: non-intractable Qualified Code(s): R11.2 - Nausea with vomiting, unspecified Anemia Qualifiers: Anemia type: unspecified type Qualified Code(s): D64.9 - Anemia, unspecified Cirrhosis Qualifiers: Hepatic cirrhosis type: alcoholic cirrhosis Ascites presence: without ascites Qualified Code(s): K70.30 - Alcoholic cirrhosis of liver without ascites
[2020-05-08 00:40] LABS: Prothrombin Time > 90.0 Seconds (9.0-12.0)
[2020-05-08 00:51] LABS: Basophils # (auto) 0.03 K/uL (0-0.2); Basophils % (auto) 0.4 %; Eosinophils # (auto) 0.05 K/uL (0-0.5); Eosinophils % (auto) 0.7 %; Hematocrit (blood only) 18.8 % (42-52); Hemoglobin 6.5 g/dL (14.0-18.0); Immature Granulocytes # (auto) 0.02 K/uL (0.00-0.02); Immature Granulocytes % (auto) 0.3 %; Lymphocytes # (auto) 0.97 K/uL (1.2-3.4); Mean Corpuscular Hgb Conc 34.6 g/dL (32-36); Mean Corpuscular Volume 98.4 fL (80-100); Mean Platelet Volume 10.3 fL (7.4-10.4); Monocytes # (auto) 0.45 K/uL (0.11-0.59); Monocytes % (auto) 6.5 %; Neutrophils # (auto) 5.39 K/uL (1.4-6.5); Neutrophils % (auto) 78.1 %; Platelet Count 112 K/uL (130-400); Polychromasia 1+; RDW Coefficient of Variation 15.8 % (11.5-14.5); RDW Standard Deviation 54.6 fL (36.4-46.3); Red Blood Count 1.91 M/uL (4.7-6.1); White Blood Count 6.91 K/uL (4.8-10.8)
[2020-05-08 00:52] LABS: INR > 9.7 (0.9-1.1)
[2020-05-08] MEDS ORDERED: PANTOprazole 40 MG in SYRINGE 0 ML IV ONE (00:55)
[2020-05-08] MEDS ORDERED: PHYTONADIONE 5 MG in SODIUM CHLORIDE 0.9% 50 ML IV ONE (00:55)
[2020-05-08 01:08] LABS: Appearance Urine Clear (Clear); Bacteria Urine Automated 4+ (Negative); Bilirubin Urine Negative (Negative); Blood Urine Negative (Negative); Color Urine Yellow; Glucose Urine UA Negative (Negative); Ketones Urine Trace (Negative); Leukocyte Esterase Urine 2+ (Negative); Nitrite Urine Positive (Negative); Protein Urine Negative (Negative); RBC Urine Automated 0-4 /hpf (0-4); Specific Gravity Urine 1.022 (1.000-1.030); Urobilinogen Urine Negative (Negative)
[2020-05-08] MEDS ORDERED: SODIUM CHLORIDE 0.9% 250 ML IV PRN ×3 (01:15→19:10)
[2020-05-08 01:16] LABS: Magnesium 2.3 mg/dl (1.8-2.4); Potassium 4.9 mmol/L (3.5-5.1)
[2020-05-08 01:17] LABS: Albumin Globulin Ratio 0.8 (0.9-2); Albumin Level 2.4 gm/dl (3.4-5.0); BUN Creatinine Ratio 42.9 (10-20); Bilirubin,Total 0.5 mg/dl (0.2-1); Calcium 8.5 mg/dl (8.5-10.1); Est GFR (African American) 75.5; Est GFR (Non-African American) 65.1; Total Protein 5.4 gm/dl (6.4-8.2); Troponin I 0.022 ng/ml (0-0.045)
[2020-05-08] MEDS ORDERED: cefTRIAXone SODIUM 2,000 MG/70 ML BAG IV STA (01:23)
[2020-05-08] MEDS ORDERED: PIPERACILL/TAZOBAC CONSULT ACTIVE PRN (01:27)
[2020-05-08] MEDS ORDERED: PIPERACILLIN/TAZOBACTAM 4.5 GM/120 ML BAG IV ONE (01:27)
[2020-05-08] MEDS ORDERED: IOVERSOL 100ml IV ONE (02:05)
[2020-05-08 02:23] LABS: Influenza A virus by PCR Negative (Neg); Influenza B virus by PCR Negative (Neg); RSV by PCR Negative (Neg); SARS CoV2 RNA(COVID-19) InHosp NEGATIVE (Negative)
[2020-05-08] MEDS ORDERED: fentaNYL citrate 100 MCG/2 ML VIAL IV PRN (02:41)
[2020-05-08] MEDS ORDERED: ONDANSETRON INJ 2 MG/ML 2 ML VIAL IV PRN (03:43)
[2020-05-08] MEDS ORDERED: LEVALBUTEROL TARTRATE 15 GM HFA.AER.AD INH PRN (03:43)
[2020-05-08] MEDS ORDERED: PHYTONADIONE 2.5 MG in SODIUM CHLORIDE 0.9% 50 ML IV ONE (03:43)
[2020-05-08] MEDS ORDERED: NITROGLYCERIN SL 0.4 MG/TAB TAB SL PRN (03:43)
[2020-05-08] MEDS ORDERED: ERTAPENEM CONSULT ACTIVE PRN (03:54)
[2020-05-08] MEDS ORDERED: DEXTROSE 50% 50 ML SYRINGE IV PRN (04:00)
[2020-05-08] MEDS ORDERED: GLUCAGON FOR INJ 1 MG VIAL SQ PRN (04:00)
[2020-05-08] MEDS ORDERED: GLUCOSE 40% GEL 15 GM TUBE PO PRN (04:00)
[2020-05-08] MEDS ORDERED: GLUCOSE 10 TABS/TUBE PO PRN (04:00)
[2020-05-08] MEDS ORDERED: CARBOHYDRATES FOR HYPOGLYCEMIA PO PRN (04:00)
[2020-05-08] MEDS: PANTOprazole 40 MG in DEXTROSE 5% 100 ML IV SCH ×4 (04:33→20:04)
--- NOTE | 2020-05-08 04:55 | History and Physical Report ---
DATE OF ADMISSION: 05/08/2020 CHIEF COMPLAINT: Dizziness, abdominal pain. HISTORY OF PRESENT ILLNESS: A 79-year-old male with past medical history significant for history of cirrhosis, history of UTIs with ESBL, history of atrial fibrillation, on Coumadin, history of prostate cancer, history of diastolic dysfunction, diabetes type 2, BPH, GERD, recently found to have gallstones. There is plan for elective laparoscopic cholecystectomy, the patient is having abdominal pain for last 2 months, and the pain is getting worse, right upper quadrant abdominal pain. The patient says also for 1 month he is feeling dizzy, when he was standing up he is getting dizzy. Dizziness is getting progressively worse, in last 1-week it got severe like could not even stand for long time and his legs getting weak. Because of dizziness and abdominal pain, EMS was called, when EMS is present, his heart rate was in 30s, and blood pressure in 70s, but according to EMS monitor the heart rate improved to 56, patient blood pressure, also improved and patient was brought in here. His COVID was negative. His labs showed hemoglobin of 6.5. His INR was greater than 9.7. Lactate was 1.1. Lipase was normal. Procalcitonin was unremarkable. UA was positive. Digoxin was normal at 1. Flu was negative and the patient's imaging studies were also unremarkable. The patient has a likelihood of a remote history of alcoholism 40 years ago and also diagnosed with ulcer disease at that time. Currently denies any blood in the stools or black stools. No hematuria. Requesting pain medication for his abdominal pain in the right upper quadrant. Denies any chest pain, no shortness of breath, no cough, no fever, no chills, no headache. He says he has cataracts and has some blurry vision and did not see eye doctor for a long time. Denies any earache, no runny nose, no sore throat, no difficulty swallowing. Could not eating much because of his nausea and abdominal pain. No swelling in the legs seen. Currently resting comfortably and hemodynamically stable. ALLERGIES: CARDURA, PRAZOSIN. PAST MEDICAL HISTORY: As mentioned above. PAST SURGICAL HISTORY: Presence of IVC filter, bilateral cataract surgeries, history of appendectomy, history of right knee surgery. FAMILY HISTORY: Significant for mother had TX and stroke. Father has TX. SOCIAL HISTORY: Currently living at senior care. Currently everyday smoker as per records. Currently no alcohol use, no drug use. MEDICATIONS: The patient has Tylenol 1 gram p.o. t.i.d. p.r.n., capsaicin 1 application topical q.i.d., vitamin B12 1000 mcg p.o. daily, diclofenac sodium 50 mg p.o. b.i.d., digoxin 250 mcg p.o. daily, diltiazem 180 mg p.o. a.m., fluticasone Solu-Medrol one inhalation b.i.d., folic acid 1 mg p.o. a.m., Gaviscon Extra Strength 1 tablet p.o. q.i.d. p.r.n., lactulose 30 mL p.o. b.i.d., Lupron shots as directed, levalbuterol 2 puffs inhalation q.i.d. p.r.n., lisinopril 5 mg p.o. a.m., metformin 500 mg at bedtime, mineral oil 1 application topical daily, Metamucil 0.4 mg sublingual p.r.n., Protonix 40 mg p.o. b.i.d., paroxetine 20 mg p.o. daily, Xifaxan 550 mg p.o. b.i.d., sucralfate 1 gram p.o. q.i.d., Flomax 0.4 mg p.o. daily, vitamin A and D topical application q.i.d., warfarin 5 mg p.o. q.p.m. REVIEW OF SYSTEMS: As per HPI. Rest of review of symptoms negative. PHYSICAL EXAMINATION: GENERAL: The patient is of moderate build, not in acute distress. VITAL SIGNS: Temperature 36.6, pulse 67, respiratory rate 15, blood pressure 108/54, oxygen 97% room air. HEENT: Pupils equal, round, reactive to light. Oral mucosa moist. NECK: No neck masses seen, supple. CARDIOVASCULAR: S1, S2 heard, regular rate and rhythm, no murmur, no gallop. RESPIRATORY SYSTEM: Normal AP diameter. No accessory muscle use. No wheezing, no crackles. ABDOMEN: Soft, bowel sounds present. Tenderness in epigastric and right upper quadrant region, mild guarding, no rigidity. No distention present. CENTRAL NERVOUS SYSTEM: Cranial nerves II-XII grossly intact. Nonfocal. EXTREMITIES: No edema, no erythema. LABORATORY DATA: WBC 6.9, hemoglobin 6.5, hematocrit 18.8, platelets 112. PT greater than 90, INR greater than 9.7. Sodium 139, potassium 4.9, chloride 110, bicarbonate 23, BUN 47, creatinine 1.09, serum glucose 136, lactate 1.1, calcium 8.5, magnesium 2.3, total bilirubin 0.5, AST 25, ALT 16, alkaline phosphatase 70. Troponin I less than 0.022, lipase 66. Procalcitonin 0.06. Urinalysis positive for urine nitrite, +4 bacteria, +2 leukocyte esterase. COVID-19 PCR negative. Influenza A and B negative RSV PCR negative. IMAGING: CT of the head, preliminary reports no acute findings. CT of abdomen and pelvis, preliminary report, no acute findings. Chest x-ray, no acute findings. EKG: Atrial fibrillation with PVCs at a rate of 64. Nonspecific intraventricular conduction block, no significant change was found. ASSESSMENT AND PLAN: This is a 79-year-old male who presents with dizziness and abdominal pain and found to have significant anemia and also has ongoing abdominal pain from his gallstones. 1. Symptomatic anemia with dizziness and hemoglobin 6.5 and no obvious signs of bleeding. INR is point greater than 9.7 ER given IV vitamin K 5 mg, will give another dose of IV vitamin K 2.5. Will hold his diclofenac sodium. We will follow PT/INR. Er ordered Unit of PRBC. We will order 1 more unit of PRBC, total of two PRBCs and follow H and H q. 6 hours. Transfuse to keep hemoglobin greater than 8 and consult GI. We will start on Protonix drip because remote history of ulcers and also liver cirrhosis, also check stool for Hemoccult and monitor in tele floor. 2. Abdominal pain. Ongoing issues with nausea, abdominal pain from his gallbladder disease. Recently seen by surgery and plan for elective cholecystectomy. We will keep him n.p.o., gentle fluids and consult surgery while patient in the hospital. 3. Urinary tract infection,history of ESBL in the past. We will place him on Invanz,. Follow cultures. 5. Liver cirrhosis. We will continue his Xifaxan and lactulose. The patient is not on any diuretics. As per [facility] EMR his torsemide 20mg was topped on 12/12/20.Getting gentle fluids. Monitor for any volume overload. 6. History of atrial fibrillation. The patient initially was bradycardic and hypotensive when the EMS arrived, but currently stable. We will give him digoxin, diltiazem with holding parameters. Holding his Coumadin for GI bleed. 7. History of prostate cancer, on Lupron shots. 8. Hypertension, on lisinopril and diltiazem. We will monitor his blood pressure. 9. Depression. Continue his paroxetine. 10. BPH. Continue his Flomax. 11. History of chronic obstructive pulmonary disease. Ongoing tobacco abuse. Continue home inhalers, currently stable. 12. History of diastolic congestive heart failure, chronic. He is currently euvolemic. Currently, seems to not be on any diuretics. We will follow for any volume overload. 13. History of diabetes type 2. Hold metformin, place insulin sliding scale. 14. Deep venous thrombosis prophylaxis, sequential compression devices for now. 15. Disposition: Closely monitor in tele floor. Level 1 full code. MTDD
[2020-05-08] MEDS: ERTAPENEM SODIUM 1,000 MG in SODIUM CHLORIDE 0.9% 50 ML IV SCH (05:54)
[2020-05-08] MEDS: SODIUM CHLORIDE 0.9% 1000ML 1,000 ML IV SCH (05:54)
--- NOTE | 2020-05-08 06:57 | Surgery Consultation ---
Date of Consultation May 08, 2020 Assessment & Plan (1) Nausea & vomiting: -etiology may be related to underlying gallstones -prior to undergoing surgery, further evaluation for anemia, coagulopathy, and dizziness must be undertaken: -coumadin reversed with vitamin K: -follow serial labs -blood transfusion ordered -follow serial labs -GI evaluation requested--would be interested to see if EGD warranted due to noted anemia) -will continue to follow while pending workup unfolds Supervising Physician Co-Signing Physician Notes I personally saw and evaluated the patient with Kenneth Patino PA-C and agree with the assessment and plan. 79 yo male with history of cholelithiasis, here with syncope, acute anemia and coagulopathy -No plans for any surgical intervention, no signs of cholecystitis -Recommend GI evaluation as patient has history of PUD -No plans for cholecystectomy this admission -Please call back with any questions or concerns History of Present Illness Attending Physician: Demetrius Ken MD History of Present Illness 79 year old male seen by Dr. Fregoso on 05/05/20 due to abdominal pain and gallstones. Plan were underway to schedule an elective cholecystectomy. The pt. resides in a correctional facility and over the past 24-48 hours has been experiencing episodes of lightheadedness and near syncope. He denies passing passing out but says he comes close to doing so. He denies palpitations, CP, cough, fever, SOB. In the ED, he was noted to have coagulopathy with INR >9 and noted to be anemic with Hb of 6.5. Platelets were low at 112K. LFTs were unremarkable and renal function was normal. An abdominal CT scan showed gallstones without cholecystitis; a cirrhotic appearing liver was noted. The pt. notes he has not had an y N/V. He denies hematemesis, melena, BRBPR. he has never had an EGD or C-scope. He notes 20 pound weight loss over the past 2 months, but states he has not been eating well as food tends to exacerbate his abdominal pain. In the ED, he received 1 unit PRBCS (a second unit is ordered) and he received 7 .5 mg IV vitamin K. At the time of my exam he was resting in bed in no distress. Allergies Allergy/AdvReac Type Severity Reaction Status Date / Time doxazosin [From Cardura] Allergy Unknown Unknown Unverified 05/05/20 09:50 prazosin [From Minipress] Allergy Unknown Unknown Unverified 05/05/20 09:50 Home Medications Medication Instructions Recorded Confirmed Type cyanocobalamin (vitamin B-12) 1,000 mcg PO DAILY 06/12/18 05/08/20 History [Vitamin B-12] folic acid 1 mg PO QAM 06/12/18 05/08/20 History lactulose 30 ml PO BID 06/12/18 05/08/20 History lisinopril 5 mg PO QAM 06/12/18 05/08/20 History metformin 500 mg PO HS 06/12/18 05/08/20 History nitroglycerin [Nitrostat] 0.4 mg SUBLINGUAL UD PRN 06/12/18 05/08/20 History diltiazem HCl 180 mg PO QAM 12/06/18 05/08/20 History tamsulosin 0.4 mg PO DAILY 02/06/19 05/08/20 History levalbuterol tartrate 45 2 puffs INH QID PRN 04/08/19 05/08/20 History mcg/actuation aerosol inhaler Gaviscon Extra Strength 1 tab PO QID PRN 05/30/19 05/08/20 History pantoprazole 40 mg PO BID 05/30/19 05/08/20 History paroxetine HCl 20 mg tablet 20 mg PO DAILY 05/04/20 05/08/20 History sucralfate 1 gram tablet 1 g PO QID 05/04/20 05/08/20 History acetaminophen-codeine 1 tab PO TID PRN 05/08/20 05/08/20 History capsaicin 1 applic TOPICAL QID 05/08/20 05/08/20 History diclofenac potassium 50 mg PO BID 05/08/20 05/08/20 History digoxin 250 mcg PO DAILY 05/08/20 05/08/20 History fluticasone propion-salmeterol 1 inh INHALATION BID 05/08/20 05/08/20 History [Wixela Inhub] leuprolide (3 month) [Lupron Depot 22.5 mg IM UD 05/08/20 05/08/20 History (3 month)] mineral oil-hydrophil petrolat 1 applic TOPICAL DAILY 05/08/20 05/08/20 History [DermaPhor] rifaximin [Xifaxan] 550 mg PO BID 05/08/20 05/08/20 History vitamin A and D 1 applic TOPICAL QID 05/08/20 05/08/20 History warfarin 5 mg PO PM 05/08/20 05/08/20 History Patient History Medical History Allergic rhinitis Anemia Anxiety Atrial fibrillation Bone lesion BPH (benign prostatic hyperplasia) Cataract Bilateral cataracts - had surgery on both eyes; Chronic back pain Chronic pulmonary embolism Cirrhosis Depressive disorder Diabetes mellitus, type 2 Diastolic dysfunction DVT (deep venous thrombosis) GERD (gastroesophageal reflux disease) H/O: CVA (cerebrovascular accident) HTN (hypertension) Incarcerated umbilical hernia Osteoarthritis Peptic ulcer disease Presence of IVC filter Prostate cancer Sciatica Streptococcal bacteremia Thrombocytopenia Tobacco abuse Tremor Surgical History H/O right knee surgery History of appendectomy History of cataract surgery left. 12/2018. 2mg versed. History of cataract surgery Family History Mother , in her 80s Myocardial infarction Stroke Father , in her 60s Myocardial infarction Sister No problems noted. Sister No problems noted. Sister No problems noted. Son No problems noted. Son No problems noted. Son No problems noted. Son No problems noted. Son No problems noted. Daughter No problems noted. Daughter No problems noted. Daughter No problems noted. Daughter No problems noted. Daughter No problems noted. 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 Required: No Beliefs That Will Affect Care: None marital status: Single Current Living Situation: Other Current Living Situation Comment: Correctional facility current occupational status: unemployed Other Information That Helps Us Care for You: No Feels Safe at Home: Yes Safety Concerns: Feels Safe At This Time caffeine: Yes (2 cups/day) during the past year weight has: remained stable Assistive Devices: None Review of Systems Constitutional: + weight loss; no fever and no chills Ear, Nose, Mouth, Throat: no ear pain Respiratory: no cough and no dyspnea Cardiovascular: + lightheadedness; no chest pain and no palpitations Gastrointestinal: + abdominal pain; no nausea, no vomiting, no hematemesis, no diarrhea/loose stools, no blood in stools and no melena Genitourinary: no dysuria Musculoskeletal: no back pain Integumentary: no rash Neurologic: no localized weakness Hematologic / Lymphatic: + easy bruising Physical Exam Constitutional: well developed and well nourished; no acute distress Eyes: + anicteric sclerae ENMT: Ears: no hearing impairment no sublingual jaundice Neck: trachea midline Respiratory: normal respiratory effort, lungs clear to auscultation Cardiovascular: Rate/Rhythm: regular rate and regular rhythm Gastrointestinal (Abdomen): Inspection/Auscultation: normal bowel sounds; abdomen not distended Percussion/Palpation: + abdomen tender (RUQ/epigastric) and abdomen soft Musculoskeletal: no calf pain Skin: normal turgor Neurologic: moves all extremities Psychiatric: A+Ox3, euthymic affect Results & Data ([facility]) Vital Signs (Past 12 Hours) Vital Signs Temp Pulse Pulse Resp BP BP Pulse Ox 05/08/20 06:05 68 18 159/60 H 98 05/08/20 05:36 56 L 18 125/55 L 97 05/08/20 05:02 36.8 C 53 L 22 120/56 L 97 05/08/20 04:20 36.8 C 53 L 17 114/54 L 99 05/08/20 03:50 36.9 C 55 L 19 116/54 L 99 05/08/20 03:35 36.8 C 61 20 107/56 L 97 05/08/20 03:13 36.6 C 67 15 108/54 L 97 05/08/20 02:30 66 20 138/60 96 05/08/20 02:15 69 18 162/63 H 97 05/08/20 02:01 36.5 C 70 24 146/61 H 100 05/08/20 01:30 66 18 142/64 H 100 05/08/20 00:15 36.8 C 73 18 121/59 L 99 PG Care Time/CCT Total # of Minutes Spent Total Time Spent with Patient: Total time spent is greater than 50% in coordination of care (as documented) at patient's floor/unit and/or counseling patient: Coding Level of Care Code 52204 Inpt Consult Level 5 Diagnoses Nausea & vomiting R11.2 Vomiting Intractability: non-intractable Vomiting type: unspecified (1) Nausea & vomiting Vomiting Intractability: non-intractable Vomiting type: unspecified Qualified Code(s): R11.2 - Nausea with vomiting, unspecified
--- NOTE | 2020-05-08 07:55 | XRay Report ---
XR chest 1V portable CLINICAL HISTORY: hypotension COMPARISON STUDY: 06/12/2019 FINDINGS: The heart is enlarged. There is slight prominence the upper lobe vessels suggesting mild pu lmonary venous hypertension. There is no overt edema. There is no focal pulmonary consolidation. Ther e are no significant pleural effusions.[There are a few scattered interstitial opacities, likely atel ectatic although a viral infectious process could appear similar. IMPRESSION: Cardiomegaly and suspected mild pulmonary venous hypertension. No evidence of lobar conso lidation. ACT 112: Negative or not required by law. Electronically signed by: Sesar Wang M.D. 05/08/2020 7:54 AM
--- NOTE | 2020-05-08 08:08 | CT Scan Report ---
CT abd pelvis IV con only CLINICAL HISTORY: Right upper quadrant abdominal pain COMPARISON STUDY: MRI performed May 2019 TECHNIQUE: The patient was scanned in a dynamic fashion during intravenous administration of 93 cc of Optiray 320 A dose lowering technique was utilized adhering to the principles of ALARA. CT DOSE: FINDINGS: Lower chest: There is mild dependent atelectasis Liver: The liver has a cirrhotic morphology. There is slight increase in the size of a lobular 23 mm hypodense lesion within the right lobe the liver. Gallbladder: Cholelithiasis. Minimal pericholecystic fluid. Spleen: Mildly enlarged measuring 14 cm with perisplenic varices. Pancreas: Unremarkable. Adrenal glands: Unremarkable. Kidneys: There is a 1 cm right renal hypodensity, statistically representing a cyst. No left kidney i s visualized. Bowel: There are no transition zones indicate bowel obstruction. There is moderate rectal stool. Ther e is no evidence of acute diverticulitis. By history the appendix is surgically absent. Peritoneum: There is no intraperitoneal free air or abdominal ascites. Vasculature: There is no evidence of abdominal aortic aneurysm. There is an indwelling IVC filter. Adenopathy: None. Pelvic viscera: There is mild prostatomegaly and minor bladder wall thickening. Skeletal structures: No destructive osseous lesions are seen. IMPRESSION: 1. Cirrhosis with splenomegaly and prominent varices 2. Slight enlargement in an indeterminate 22 mm lobular hypodense lesion within the right lobe the li carla 3. Cholelithiasis with minimal pericholecystic fluid 4. No evidence of bowel obstruction. No evidence of free air. 5. No left kidney identified. ACT 112: Negative or not required by law. Electronically signed by: eSsar Wang M.D. 05/08/2020 8:07 AM
--- NOTE | 2020-05-08 08:09 | CT Scan Report ---
CT head/brain wo con CLINICAL HISTORY: Dizziness COMPARISON STUDY: June 12, 2019 TECHNIQUE: Axial CT of the brain is performed from the vertex to the skull base. IV contrast was not administered for this examination. A dose lowering technique was utilized adhering to the principles of ALARA. CT DOSE: 1862.15 mGycm FINDINGS: No intra or extra-axial mass lesions are visualized. There is no CT evidence of acute cortical infarc tion. There is no evidence of midline shift. There is no acute hemorrhage. No calvarial fractures ar e visualized. There are patchy white matter hypodensities likely on a small vessel basis. There is no evidence of pathologic ventricular dilatation. There is no evidence of acute sinusitis IMPRESSION: No acute intracranial findings ACT 112: Negative or not required by law. Electronically signed by: Sesar Wang M.D. 05/08/2020 8:07 AM
[2020-05-08] MEDS: INSULIN ASPART 100 UNITS/ML 3 ML PEN SC SCH ×3 (08:25→17:37)
[2020-05-08] MEDS: dilTIAZem HCL 180 MG CAPCR PO SCH (08:34)
[2020-05-08] MEDS: PARoxetine HCL 20 MG TAB PO SCH (08:34)
[2020-05-08] MEDS: FOLIC ACID 1 MG TAB PO SCH (08:34)
[2020-05-08] MEDS: TAMSULOSIN HCL 0.4 MG CAP PO SCH (08:35)
[2020-05-08] MEDS: CYANOCOBALAMIN 500 MCG TABLET (VITAMIN B-12) PO SCH (08:35)
[2020-05-08] MEDS: lisinopril 5 MG TAB PO SCH ×2 (08:35→08:43)
[2020-05-08] MEDS: LACTULOSE SYRUP 20 GM/30 ML UDC PO SCH ×3 (08:35→21:06)
[2020-05-08] MEDS: FLUTICASONE/VILANTEROL 100/25MCG 14 PUFFS/INHALER INH SCH (08:35)
[2020-05-08] MEDS: rifAXIMin 550 MG TABLET PO SCH ×2 (08:36→21:07)
[2020-05-08] MEDS: CAPSAICIN CR 0.075% 60 GM TUBE EXT SCH ×4 (08:36→21:09)
[2020-05-08] MEDS ORDERED: VITAMIN A AND D TOP SCH (09:00)
[2020-05-08] MEDS: EMOLLIENT OINTMENT 1 GM EXT SCH (10:06)
[2020-05-08] MEDS: SUCRALFATE 1 GM TAB PO SCH ×4 (10:06→21:07)
--- NOTE | 2020-05-08 10:07 | Hospitalist Progress Note ---
Date of Service May 08, 2020 Assessment & Plan (1) Symptomatic anemia: Hemoglobin is 6.5 on admission Supratherapeutic INR 2 PRBC ordered We will follow up from globin posttransfusion Possible related to NSAID With history of liver cirrhosis, differential also include variceal bleed Avoid NSAIDs Continue PPI drip Will follow GI evaluation (2) Supratherapeutic INR: INR was 9.7 on admission Got vitamin K We will follow INR Continue to hold anticoagulation (3) Abdominal pain: Ongoing problem Has been following up with surgery Recently seen 3 days ago and was planned for elective procedure Surgery was consulted. However, would not recommend surgery at this time. Pain control Possible UTI UA positive for nitrites, esterase, leukocytosis History of ESBL UTI Continue ertapenem for now and follow-up urine culture (4) Atrial fibrillation: Heart rate movement 50s to 60s Also has history of bilateral DVT and PE per oncology records on epic Continue digoxin diltiazem with holding parameters Coumadin on hold due to above panel monitor (5) Cirrhosis: Patient on rifaximin and lactulose at home Review of possible upper GI bleed, ok with continuing antibiotics CT abdomen also showed slight enlargement of indeterminate 2 mm lobular hypodensity in the right lobe of the liver (6) Prostate cancer: History of prostate cancer on Lupron shots (7) Diabetes mellitus, type 2: Hold Metformin Insulin sliding scale per protocol Monitor blood glucose Admission and Anticipated Discharge Date Admission Date: May 08, 2020 Subjective Patient seen and examined. Patient admitted this morning for dizziness and abdominal pain Found to be anemic with supratherapeutic INR Patient reports that abdominal pain is much controlled with management Reports he usually has restless legs and would like his home meds to be resumed. Reported he had a bowel movement but did not look at it and could not tell what color it was. He reports his most recent bowel movement has been yellowish and brown. No hematochezia melena Reported some nausea earlier. No vomiting Review of Systems Review of Systems: All systems reviewed & are unremarkable except as noted in Subjective Physical Exam Constitutional: + well hydrated; no acute distress Eyes: PERRL Pale conjunctiva ENMT: external ear and nose normal, oropharynx normal Respiratory: normal respiratory effort, lungs clear to auscultation Cardiovascular: Rate/Rhythm: + bradycardic and + irregularly irregular S1- S2 Gastrointestinal (Abdomen): Inspection/Auscultation: abdomen normal to inspection and normal bowel sounds; abdomen not distended Upper abdominal tenderness Musculoskeletal: no cyanosis or clubbing, extremities motor strength 5/5 Neurologic: PERRL, EOMI, accommodation nl, no face palsy, no dysarthria Psychiatric: A+Ox3, euthymic affect Results & Data Results & Data ([facility]) Vital Signs (Past 12 Hours) Vital Signs Temp Pulse Pulse Resp BP BP BP 05/08/20 07:29 36.6 C 62 15 151/56 H 05/08/20 07:27 36.6 C 62 15 150/72 H 05/08/20 06:05 68 18 159/60 H 05/08/20 05:36 56 L 18 125/55 L 05/08/20 05:02 36.8 C 53 L 22 120/56 L 05/08/20 04:20 36.8 C 53 L 17 114/54 L 05/08/20 03:50 36.9 C 55 L 19 116/54 L 05/08/20 03:35 36.8 C 61 20 107/56 L 05/08/20 03:13 36.6 C 67 15 108/54 L 05/08/20 02:30 66 20 138/60 05/08/20 02:15 69 18 162/63 H 05/08/20 02:01 36.5 C 70 24 146/61 H 05/08/20 01:30 66 18 142/64 H 05/08/20 00:15 36.8 C 73 18 121/59 L Pulse Ox 05/08/20 07:29 98 05/08/20 07:27 97 05/08/20 06:05 98 05/08/20 05:36 97 05/08/20 05:02 97 05/08/20 04:20 99 05/08/20 03:50 99 05/08/20 03:35 97 05/08/20 03:13 97 05/08/20 02:30 96 05/08/20 02:15 97 05/08/20 02:01 100 05/08/20 01:30 100 05/08/20 00:15 99 Laboratory Results Laboratory Results - last 24 hr 05/08/20 05/08/20 05/08/20 00:00 00:00 00:00 WBC 6.91 RBC 1.91 L Hgb 6.5 L* Hct 18.8 L* MCV 98.4 MCH 34.0 MCHC 34.6 RDW Std Deviation 54.6 H RDW Coeff of Charo 15.8 H Plt Count 112 L MPV 10.3 Immature Gran % (Auto) 0.3 Neut % (Auto) 78.1 Lymph % (Auto) 14.0 [place] % (Auto) 6.5 Eos % (Auto) 0.7 Baso % (Auto) 0.4 Neut # (Auto) 5.39 Lymph # (Auto) 0.97 L [place] # (Auto) 0.45 Eos # (Auto) 0.05 Baso # (Auto) 0.03 Immature Gran # (Auto) 0.02 Polychromasia 1+ PT > 90.0 H INR > 9.7 H* Sodium 139 Potassium 4.9 Chloride 110 H Carbon Dioxide 23 Anion Gap 6.0 BUN 47 H Creatinine 1.09 Est Cr Clr Drug Dosing 66.0 Est GFR ( Amer) 75.5 Est GFR (Non-Af Amer) 65.1 BUN/Creatinine Ratio 42.9 H Glucose 136 H POC Glucose Estimat Average Glucose Hemoglobin A1c Lactate Calcium 8.5 Magnesium 2.3 Total Bilirubin 0.5 AST 25 ALT 16 Alkaline Phosphatase 70 Troponin I 0.022 Total Protein 5.4 L Albumin 2.4 L Globulin 3.0 Albumin/Globulin Ratio 0.8 L Lipase 66 L Procalcitonin Specimen Hemolysis Urine Color Urine Appearance Urine pH Ur Specific [place] Urine Protein Urine Glucose (UA) Urine Ketones Urine Blood Urine Nitrite Urine Bilirubin Urine Urobilinogen Ur Leukocyte Esterase Urine WBC (Auto) Urine RBC (Auto) U Hyaline Cast (Auto) U Epithel Cells (Auto) Urine Bacteria (Auto) Nasal Screen MRSA (PCR) Digoxin COVID-19 Eval Order SARS-CoV-2 (PCR) Influenza Type A (PCR) Influenza Type B (PCR) RSV (RT-PCR) SARS-CoV-2 Ag (Rapid) Blood Type Blood Type Recheck Antibody Screen Crossmatch 05/08/20 05/08/20 05/08/20 00:00 00:00 00:00 WBC RBC Hgb Hct MCV MCH MCHC RDW Std Deviation RDW Coeff of Charo Plt Count MPV Immature Gran % (Auto) Neut % (Auto) Lymph % (Auto) [place] % (Auto) Eos % (Auto) Baso % (Auto) Neut # (Auto) Lymph # (Auto) [place] # (Auto) Eos # (Auto) Baso # (Auto) Immature Gran # (Auto) Polychromasia PT INR Sodium Potassium Chloride Carbon Dioxide Anion Gap BUN Creatinine Est Cr Clr Drug Dosing Est GFR ( Amer) Est GFR (Non-Af Amer) BUN/Creatinine Ratio Glucose POC Glucose Estimat Average Glucose Hemoglobin A1c Lactate Calcium Magnesium Total Bilirubin AST ALT Alkaline Phosphatase Troponin I Total Protein Albumin Globulin Albumin/Globulin Ratio Lipase Procalcitonin 0.06 Specimen Hemolysis Urine Color Urine Appearance Urine pH Ur Specific [place] Urine Protein Urine Glucose (UA) Urine Ketones Urine Blood Urine Nitrite Urine Bilirubin Urine Urobilinogen Ur Leukocyte Esterase Urine WBC (Auto) Urine RBC (Auto) U Hyaline Cast (Auto) U Epithel Cells (Auto) Urine Bacteria (Auto) Nasal Screen MRSA (PCR) Digoxin 1.0 COVID-19 Eval Order CovFluRsv at [facility] SARS-CoV-2 (PCR) Influenza Type A (PCR) Influenza Type B (PCR) RSV (RT-PCR) SARS-CoV-2 Ag (Rapid) Blood Type Blood Type Recheck Antibody Screen Crossmatch 05/08/20 05/08/20 05/08/20 00:13 01:09 01:35 WBC RBC Hgb Hct MCV MCH MCHC RDW Std Deviation RDW Coeff of Charo Plt Count MPV Immature Gran % (Auto) Neut % (Auto) Lymph % (Auto) [place] % (Auto) Eos % (Auto) Baso % (Auto) Neut # (Auto) Lymph # (Auto) [place] # (Auto) Eos # (Auto) Baso # (Auto) Immature Gran # (Auto) Polychromasia PT INR Sodium Potassium Chloride Carbon Dioxide Anion Gap BUN Creatinine Est Cr Clr Drug Dosing Est GFR ( Amer) Est GFR (Non-Af Amer) BUN/Creatinine Ratio Glucose POC Glucose Estimat Average Glucose Hemoglobin A1c Lactate Calcium Magnesium Total Bilirubin AST ALT Alkaline Phosphatase Troponin I Total Protein Albumin Globulin Albumin/Globulin Ratio Lipase Procalcitonin Specimen Hemolysis Urine Color Urine Appearance Urine pH Ur Specific [place] Urine Protein Urine Glucose (UA) Urine Ketones Urine Blood Urine Nitrite Urine Bilirubin Urine Urobilinogen Ur Leukocyte Esterase Urine WBC (Auto) Urine RBC (Auto) U Hyaline Cast (Auto) U Epithel Cells (Auto) Urine Bacteria (Auto) Nasal Screen MRSA (PCR) Digoxin COVID-19 Eval Order SARS-CoV-2 (PCR) NEGATIVE Influenza Type A (PCR) Negative Influenza Type B (PCR) Negative RSV (RT-PCR) Negative SARS-CoV-2 Ag (Rapid) Cancelled Blood Type O Positive Blood Type Recheck Antibody Screen NEGATIVE Crossmatch See Detail 05/08/20 05/08/20 05/08/20 02:15 02:15 07:21 WBC RBC Hgb Hct MCV MCH MCHC RDW Std Deviation RDW Coeff of Charo Plt Count MPV Immature Gran % (Auto) Neut % (Auto) Lymph % (Auto) [place] % (Auto) Eos % (Auto) Baso % (Auto) Neut # (Auto) Lymph # (Auto) [place] # (Auto) Eos # (Auto) Baso # (Auto) Immature Gran # (Auto) Polychromasia PT INR Sodium Potassium Chloride Carbon Dioxide Anion Gap BUN Creatinine Est Cr Clr Drug Dosing Est GFR ( Amer) Est GFR (Non-Af Amer) BUN/Creatinine Ratio Glucose POC Glucose 119 H Estimat Average Glucose Hemoglobin A1c Lactate 1.1 Calcium Magnesium Total Bilirubin AST ALT Alkaline Phosphatase Troponin I Total Protein Albumin Globulin Albumin/Globulin Ratio Lipase Procalcitonin Specimen Hemolysis Urine Color Urine Appearance Urine pH Ur Specific [place] Urine Protein Urine Glucose (UA) Urine Ketones Urine Blood Urine Nitrite Urine Bilirubin Urine Urobilinogen Ur Leukocyte Esterase Urine WBC (Auto) Urine RBC (Auto) U Hyaline Cast (Auto) U Epithel Cells (Auto) Urine Bacteria (Auto) Nasal Screen MRSA (PCR) Digoxin COVID-19 Eval Order SARS-CoV-2 (PCR) Influenza Type A (PCR) Influenza Type B (PCR) RSV (RT-PCR) SARS-CoV-2 Ag (Rapid) Blood Type Blood Type Recheck O Positive Antibody Screen Crossmatch 05/08/20 05/08/20 05/08/20 09:55 10:08 10:08 WBC 6.75 RBC 1.96 L Hgb 6.6 L* Hct 19.3 L* MCV 98.5 MCH 33.7 MCHC 34.2 RDW Std Deviation 56.6 H RDW Coeff of Charo 16.4 H Plt Count 133 MPV 9.9 Immature Gran % (Auto) Neut % (Auto) Lymph % (Auto) [place] % (Auto) Eos % (Auto) Baso % (Auto) Neut # (Auto) Lymph # (Auto) [place] # (Auto) Eos # (Auto) Baso # (Auto) Immature Gran # (Auto) Polychromasia PT INR Sodium 142 Potassium 4.5 Chloride 112 H Carbon Dioxide 24 Anion Gap 6.0 BUN 39 H Creatinine 1.10 Est Cr Clr Drug Dosing 65.4 Est GFR ( Amer) 74.7 Est GFR (Non-Af Amer) 64.4 BUN/Creatinine Ratio 35.0 H Glucose 124 H POC Glucose Estimat Average Glucose Hemoglobin A1c Lactate Calcium 8.4 L Magnesium 2.0 Total Bilirubin AST ALT Alkaline Phosphatase Troponin I Total Protein Albumin Globulin Albumin/Globulin Ratio Lipase Procalcitonin Specimen Hemolysis Urine Color Urine Appearance Urine pH Ur Specific [place] Urine Protein Urine Glucose (UA) Urine Ketones Urine Blood Urine Nitrite Urine Bilirubin Urine Urobilinogen Ur Leukocyte Esterase Urine WBC (Auto) Urine RBC (Auto) U Hyaline Cast (Auto) U Epithel Cells (Auto) Urine Bacteria (Auto) Nasal Screen MRSA (PCR) Pending Digoxin COVID-19 Eval Order SARS-CoV-2 (PCR) Influenza Type A (PCR) Influenza Type B (PCR) RSV (RT-PCR) SARS-CoV-2 Ag (Rapid) Blood Type Blood Type Recheck Antibody Screen Crossmatch 05/08/20 05/08/20 05/08/20 10:08 10:08 Unknown WBC RBC Hgb Hct MCV MCH MCHC RDW Std Deviation RDW Coeff of Charo Plt Count MPV Immature Gran % (Auto) Neut % (Auto) Lymph % (Auto) [place] % (Auto) Eos % (Auto) Baso % (Auto) Neut # (Auto) Lymph # (Auto) [place] # (Auto) Eos # (Auto) Baso # (Auto) Immature Gran # (Auto) Polychromasia PT 24.2 H INR 2.4 H Sodium Potassium Chloride Carbon Dioxide Anion Gap BUN Creatinine Est Cr Clr Drug Dosing Est GFR ( Amer) Est GFR (Non-Af Amer) BUN/Creatinine Ratio Glucose POC Glucose Estimat Average Glucose Pending Hemoglobin A1c Pending Lactate Calcium Magnesium Total Bilirubin AST ALT Alkaline Phosphatase Troponin I Total Protein Albumin Globulin Albumin/Globulin Ratio Lipase Procalcitonin Specimen Hemolysis Urine Color Yellow Urine Appearance Clear Urine pH 5.0 Ur Specific [place] 1.022 Urine Protein Negative Urine Glucose (UA) Negative Urine Ketones Trace H Urine Blood Negative Urine Nitrite Positive A Urine Bilirubin Negative Urine Urobilinogen Negative Ur Leukocyte Esterase 2+ H Urine WBC (Auto) 10-30 H Urine RBC (Auto) 0-4 U Hyaline Cast (Auto) 1-5 U Epithel Cells (Auto) 5-10 H Urine Bacteria (Auto) 4+ H Nasal Screen MRSA (PCR) Digoxin COVID-19 Eval Order SARS-CoV-2 (PCR) Influenza Type A (PCR) Influenza Type B (PCR) RSV (RT-PCR) SARS-CoV-2 Ag (Rapid) Blood Type Blood Type Recheck Antibody Screen Crossmatch Diagnostic Findings CT abd pelvis Lower chest: There is mild dependent atelectasis Liver: The liver has a cirrhotic morphology. There is slight increase in the size of a lobular 23 mm hypodense lesion within the right lobe the liver. Gallbladder: Cholelithiasis. Minimal pericholecystic fluid. Spleen: Mildly enlarged measuring 14 cm with perisplenic varices. Pancreas: Unremarkable. Adrenal glands: Unremarkable. Kidneys: There is a 1 cm right renal hypodensity, statistically representing a cyst. No left kidney is visualized. Bowel: There are no transition zones indicate bowel obstruction. There is moderate rectal stool. There is no evidence of acute diverticulitis. By history the appendix is surgically absent. Peritoneum: There is no intraperitoneal free air or abdominal ascites. Vasculature: There is no evidence of abdominal aortic aneurysm. There is an indwelling IVC filter. Adenopathy: None. Pelvic viscera: There is mild prostatomegaly and minor bladder wall thickening. Skeletal structures: No destructive osseous lesions are seen. IMPRESSION: 1. Cirrhosis with splenomegaly and prominent varices 2. Slight enlargement in an indeterminate 22 mm lobular hypodense lesion within the right lobe the liver 3. Cholelithiasis with minimal pericholecystic fluid 4. No evidence of bowel obstruction. No evidence of free air. 5. No left kidney identified. (1) Atrial fibrillation Atrial fibrillation type: unspecified chronic Qualified Code(s): I48.20 - Chronic atrial fibrillation, unspecified (2) Abdominal pain Abdominal location: right upper quadrant Qualified Code(s): R10.11 - Right upper quadrant pain
[2020-05-08 10:30] LABS: INR 2.4 (0.9-1.1); Prothrombin Time 24.2 Seconds (9.0-12.0)
[2020-05-08 10:31] LABS: Hematocrit (blood only) 19.3 % (42-52); Hemoglobin 6.6 g/dL (14.0-18.0); Mean Corpuscular Hemoglobin 33.7 pg (25-34); Mean Corpuscular Hgb Conc 34.2 g/dL (32-36); Mean Corpuscular Volume 98.5 fL (80-100); Mean Platelet Volume 9.9 fL (7.4-10.4); Platelet Count 133 K/uL (130-400); RDW Coefficient of Variation 16.4 % (11.5-14.5); RDW Standard Deviation 56.6 fL (36.4-46.3); Red Blood Count 1.96 M/uL (4.7-6.1); White Blood Count 6.75 K/uL (4.8-10.8)
[2020-05-08 10:36] LABS: Calcium 8.4 mg/dl (8.5-10.1); Creatinine Clr Calc Pharmacy 65.4 ml/min; Est GFR (African American) 74.7; Est GFR (Non-African American) 64.4; Potassium 4.5 mmol/L (3.5-5.1)
--- NOTE | 2020-05-08 11:05 | Gastrointestinal Consultation ---
Date of Consultation May 08, 2020 History of Present Illness Attending Physician: Desiree Retana MD Reason for consult: anemia, cirrhosis 79yo M with PMH sig for cirrhosis (compensated at present, details of prior w.u not available, on meds for HE), on anticoagulation for a fib, recent complaints of abdominal pain rx'd Bentyl by PCP and seen by surg for possible cholecystectomy now admit to hospital for nausea, weakness, hypotension. He had marked samir and hypotension on admission, possibly related to meds. He was also noted to have anemia, with hgb 6's, normal MCV, and BUN in 30's. His INRwas > 10. He denies any h/o gross bleeding. Overnight, his hgb has remained stable, in the 6's. He received 2 units of blood since admission. He received vit K with improvement in INR to 2.4. He was placed on abx for ? UTI. His BP and pulse have improved. + NSAIDs - Voltaren twiced daily. Underwent CT - no ascites, + varices, splenomegaly. No prior h/o EGD. PE: Comfortable., NAD HEENT: OC clear, CTA CV: RRR Resp: CTA Abd: soft Labs reviewed A/P: Cirrhosis with stigmata of portal HTN on imaging, mild t penia Anemia without gross GIB Marked coagulopathy due to coumadin Admit with samir, hypotension, resolved - DDX = NSAID related PUD, portal gatropathy, GAVE. Variceal bleed seems unlkkely given absence of overt GIB. - X fuse for hgb > 7. IV PPI, begin octreotide gtt. Abx. - Eventual EGD. Allergies Allergy/AdvReac Type Severity Reaction Status Date / Time doxazosin [From Cardura] Allergy Unknown Unknown Unverified 05/05/20 09:50 prazosin [From Minipress] Allergy Unknown Unknown Unverified 05/05/20 09:50 Home Medications Medication Instructions Recorded Confirmed Type cyanocobalamin (vitamin B-12) 1,000 mcg PO DAILY 06/12/18 05/08/20 History [Vitamin B-12] folic acid 1 mg PO QAM 06/12/18 05/08/20 History lactulose 30 ml PO BID 06/12/18 05/08/20 History lisinopril 5 mg PO QAM 06/12/18 05/08/20 History metformin 500 mg PO HS 06/12/18 05/08/20 History nitroglycerin [Nitrostat] 0.4 mg SUBLINGUAL UD PRN 06/12/18 05/08/20 History diltiazem HCl 180 mg PO QAM 12/06/18 05/08/20 History tamsulosin 0.4 mg PO DAILY 02/06/19 05/08/20 History levalbuterol tartrate 45 2 puffs INH QID PRN 04/08/19 05/08/20 History mcg/actuation aerosol inhaler Gaviscon Extra Strength 1 tab PO QID PRN 05/30/19 05/08/20 History pantoprazole 40 mg PO BID 05/30/19 05/08/20 History paroxetine HCl 20 mg tablet 20 mg PO DAILY 05/04/20 05/08/20 History sucralfate 1 gram tablet 1 g PO QID 05/04/20 05/08/20 History acetaminophen-codeine 1 tab PO TID PRN 05/08/20 05/08/20 History capsaicin 1 applic TOPICAL QID 05/08/20 05/08/20 History diclofenac potassium 50 mg PO BID 05/08/20 05/08/20 History digoxin 250 mcg PO DAILY 05/08/20 05/08/20 History fluticasone propion-salmeterol 1 inh INHALATION BID 05/08/20 05/08/20 History [Wixela Inhub] leuprolide (3 month) [Lupron Depot 22.5 mg IM UD 05/08/20 05/08/20 History (3 month)] mineral oil-hydrophil petrolat 1 applic TOPICAL DAILY 05/08/20 05/08/20 History [DermaPhor] rifaximin [Xifaxan] 550 mg PO BID 05/08/20 05/08/20 History vitamin A and D 1 applic TOPICAL QID 05/08/20 05/08/20 History warfarin 5 mg PO PM 05/08/20 05/08/20 History Patient History Medical History Allergic rhinitis Anemia Anxiety Atrial fibrillation Bone lesion BPH (benign prostatic hyperplasia) Cataract Bilateral cataracts - had surgery on both eyes; Chronic back pain Chronic pulmonary embolism Cirrhosis Depressive disorder Diabetes mellitus, type 2 Diastolic dysfunction DVT (deep venous thrombosis) GERD (gastroesophageal reflux disease) H/O: CVA (cerebrovascular accident) HTN (hypertension) Incarcerated umbilical hernia Osteoarthritis Peptic ulcer disease Presence of IVC filter Prostate cancer Sciatica Streptococcal bacteremia Thrombocytopenia Tobacco abuse Tremor Surgical History H/O right knee surgery History of appendectomy History of cataract surgery left. 12/2018. 2mg versed. History of cataract surgery Family History Mother , in her 80s Myocardial infarction Stroke Father , in her 60s Myocardial infarction Sister No problems noted. Sister No problems noted. Sister No problems noted. Son No problems noted. Son No problems noted. Son No problems noted. Son No problems noted. Son No problems noted. Daughter No problems noted. Daughter No problems noted. Daughter No problems noted. Daughter No problems noted. Daughter No problems noted. Daughter Unknown family medical history Other Family history non-contributory Social History Smoking Status: Current every day smoker Tobacco Type: Cigarettes Age Started Using Tobacco: 11; Cigarettes Per Day: 20; Second Hand Exposure: No; Do You Dip or Chew Tobacco: No; Tobacco Cessation Education Requested by Patient: No Hx Alcohol Use: No Hx Substance Use: No Preferred Language: Irish Communication Ability: Effective Visual Impairment: No Limitations Hearing Ability: Normal Store Person Required: No Beliefs That Will Affect Care: None marital status: Single Current Living Situation: Other Current Living Situation Comment: Correctional facility current occupational status: unemployed Other Information That Helps Us Care for You: No Feels Safe at Home: Yes Safety Concerns: Feels Safe At This Time caffeine: Yes (2 cups/day) during the past year weight has: remained stable Assistive Devices: None Results & Data ([facility]) Vital Signs (Past 12 Hours) Vital Signs Temp Pulse Pulse Resp BP BP BP 05/08/20 11:01 36.5 C 60 20 130/59 L 05/08/20 10:46 37 C 55 L 16 122/62 05/08/20 10:39 37 C 62 17 121/61 05/08/20 10:38 37 C 65 12 121/61 05/08/20 07:29 36.6 C 62 15 151/56 H 05/08/20 07:27 36.6 C 62 15 150/72 H 05/08/20 06:05 68 18 159/60 H 05/08/20 05:36 56 L 18 125/55 L 05/08/20 05:02 36.8 C 53 L 22 120/56 L 05/08/20 04:20 36.8 C 53 L 17 114/54 L 05/08/20 03:50 36.9 C 55 L 19 116/54 L 05/08/20 03:35 36.8 C 61 20 107/56 L 05/08/20 03:13 36.6 C 67 15 108/54 L 05/08/20 02:30 66 20 138/60 05/08/20 02:15 69 18 162/63 H 05/08/20 02:01 36.5 C 70 24 146/61 H 05/08/20 01:30 66 18 142/64 H 05/08/20 00:15 36.8 C 73 18 121/59 L Pulse Ox 05/08/20 11:01 94 05/08/20 10:46 95 05/08/20 10:39 94 05/08/20 10:38 94 05/08/20 07:29 98 05/08/20 07:27 97 05/08/20 06:05 98 05/08/20 05:36 97 05/08/20 05:02 97 05/08/20 04:20 99 05/08/20 03:50 99 05/08/20 03:35 97 05/08/20 03:13 97 05/08/20 02:30 96 05/08/20 02:15 97 05/08/20 02:01 100 05/08/20 01:30 100 05/08/20 00:15 99
[2020-05-08 11:23] LABS: Basophils # (auto) 0.03 K/uL (0-0.2); Basophils % (auto) 0.4 %; Eosinophils # (auto) 0.09 K/uL (0-0.5); Eosinophils % (auto) 1.3 %; Immature Granulocytes # (auto) 0.02 K/uL (0.00-0.02); Immature Granulocytes % (auto) 0.3 %; Lymphocytes # (auto) 1.05 K/uL (1.2-3.4); Lymphocytes % (auto) 15.6 %; Monocytes # (auto) 0.52 K/uL (0.11-0.59); Monocytes % (auto) 7.7 %; Neutrophils # (auto) 5.04 K/uL (1.4-6.5); Neutrophils % (auto) 74.7 %
--- NOTE | 2020-05-08 13:36 | Electrocardiogram Report ---
Test Reason : Blood Pressure : / mmHG Vent. Rate : 064 BPM Atrial Rate : 182 BPM P-R Int : 000 ms QRS Dur : 126 ms QT Int : 438 ms P-R-T Axes : 000 -44 102 degrees QTc Int : 451 ms Atrial fibrillation with premature ventricular or aberrantly conducted complexes Left axis deviation Non-specific intra-ventricular conduction block T wave abnormality, consider lateral ischemia Abnormal ECG When compared with ECG of 12-JUN-2019 09:19, No significant change was found Confirmed by Luis Eduardo Dunn ([id number]) on 05/08/2020 1:35:39 PM Referred By: [facility] Confirmed By:Luis Eduardo Dunn
[2020-05-08] MEDS: ACETAMINOPHEN W/CODEINE #3 1 TAB PO PRN (14:43)
[2020-05-08] MEDS: DIGOXIN 0.25 MG TAB PO SCH (16:35)
[2020-05-08 19:07] LABS: Hematocrit (blood only) 19.4 % (42-52); Hemoglobin 6.5 g/dL (14.0-18.0)
[2020-05-08] MEDS ORDERED: Nursing to Pharmacy Communication SCH (20:15)
[2020-05-09] MEDS: INSULIN ASPART 100 UNITS/ML 3 ML PEN SC SCH ×5 (00:14→21:03)
[2020-05-09] MEDS: PANTOprazole 40 MG in DEXTROSE 5% 100 ML IV SCH ×4 (00:25→16:15)
[2020-05-09] MEDS: SODIUM CHLORIDE 0.9% 1000ML 1,000 ML IV SCH (00:26)
[2020-05-09] MEDS: ERTAPENEM SODIUM 1,000 MG in SODIUM CHLORIDE 0.9% 50 ML IV SCH (05:23)
--- NOTE | 2020-05-09 06:27 | Surgery Progress Note ---
Date of Service May 09, 2020 Assessment & Plan (1) Cholelithiasis: -pt. to have elective cholecystectomy, but this is on hold due to coagulopathy, anemia, near syncope -INR improved with vitamin K -transfusion performed for anemia--labs this am pending -GI input noted--PPI, octreotide, and plans for eventual EGD Admission and Anticipated Discharge Date Admission Date: May 08, 2020 Supervising Physician Co-Signing Physician Notes I personally saw and evaluated the patient with Kenneth Patino PA-C and agree with the assessment and plan. 79 yo male with history of cholelithiasis, here with syncope, acute anemia and coagulopathy -No plans for any surgical intervention, no signs of cholecystitis -Recommend GI evaluation as patient has history of PUD -No plans for cholecystectomy this admission -Please call back with any questions or concerns Subjective Pt. notes some minor pain in RUQ with palpation. No N/V. He notes he continues to have some lightheadedness but this has improved. No CP or SOB. Physical Exam Constitutional: well developed and well nourished; no acute distress Gastrointestinal (Abdomen): Inspection/Auscultation: abdomen not distended Percussion/Palpation: + abdomen tender (RUQ--minor) and abdomen soft Results & Data ([facility]) Vital Signs (Past 12 Hours) Vital Signs Temp Pulse Pulse Resp BP BP Pulse Ox 05/09/20 04:50 36.5 C 76 18 137/67 98 05/09/20 00:18 36.4 C L 71 20 126/70 96 05/08/20 22:18 64 16 98 05/08/20 20:20 61 14 144/70 H 98 05/08/20 20:05 36.5 C 69 20 147/78 H 97 05/08/20 20:03 36.7 C 67 16 124/69 99 05/08/20 19:46 36.5 C 74 16 129/74 99 PG Care Time/CCT Total # of Minutes Spent Total Time Spent with Patient: Total time spent is greater than 50% in coordination of care (as documented) at patient's floor/unit and/or counseling patient: Coding Level of Care Code 44716 Subseq Hosp Care Lvl 1 Diagnoses Cholelithiasis K80.20
[2020-05-09 07:09] LABS: Hemoglobin 7.8 g/dL (14.0-18.0); Mean Corpuscular Hemoglobin 32.1 pg (25-34); Mean Corpuscular Hgb Conc 33.9 g/dL (32-36); Mean Corpuscular Volume 94.7 fL (80-100); Platelet Count 137 K/uL (130-400); RDW Coefficient of Variation 17.9 % (11.5-14.5); RDW Standard Deviation 59.9 fL (36.4-46.3); Red Blood Count 2.43 M/uL (4.7-6.1); White Blood Count 7.56 K/uL (4.8-10.8)
[2020-05-09] MEDS: ACETAMINOPHEN W/CODEINE #3 1 TAB PO PRN (07:17)
[2020-05-09 07:29] LABS: BUN Creatinine Ratio 31.2 (10-20); Calcium 8.6 mg/dl (8.5-10.1); Creatinine Clr Calc Pharmacy 67.9 ml/min; Est GFR (African American) 86.9
[2020-05-09 08:11] LABS: INR 1.4 (0.9-1.1); Prothrombin Time 14.7 Seconds (9.0-12.0)
[2020-05-09] MEDS: PARoxetine HCL 20 MG TAB PO SCH (09:44)
[2020-05-09] MEDS: CYANOCOBALAMIN 500 MCG TABLET (VITAMIN B-12) PO SCH (09:44)
[2020-05-09] MEDS: rifAXIMin 550 MG TABLET PO SCH ×2 (09:44→20:49)
[2020-05-09] MEDS: dilTIAZem HCL 180 MG CAPCR PO SCH (09:44)
[2020-05-09] MEDS: LACTULOSE SYRUP 20 GM/30 ML UDC PO SCH ×2 (09:45→19:37)
[2020-05-09] MEDS: FOLIC ACID 1 MG TAB PO SCH (09:45)
[2020-05-09] MEDS: TAMSULOSIN HCL 0.4 MG CAP PO SCH (09:45)
[2020-05-09] MEDS: lisinopril 5 MG TAB PO SCH (09:45)
[2020-05-09] MEDS: CAPSAICIN CR 0.075% 60 GM TUBE EXT SCH ×4 (09:45→20:08)
[2020-05-09] MEDS: FLUTICASONE/VILANTEROL 100/25MCG 14 PUFFS/INHALER INH SCH (09:46)
[2020-05-09] MEDS: SUCRALFATE 1 GM TAB PO SCH (09:49)
[2020-05-09] MEDS: EMOLLIENT OINTMENT 1 GM EXT SCH (10:05)
--- NOTE | 2020-05-09 11:08 | Hospitalist Progress Note ---
Date of Service May 09, 2020 Assessment & Plan (1) Symptomatic anemia: Hemoglobin is 6.5 on admission Supratherapeutic INR s/p 3PRBC Hb is 7.8 after 3 PRBC With reports of ?bloody/melanotic stool Possible GI bleed Possible related to NSAID With history of liver cirrhosis, differential also include variceal bleed Avoid NSAIDs Continue PPI drip will follow up GI and EGD (2) Supratherapeutic INR: INR was 9.7 on admission Got vitamin K INR 1.4 this morning Continue to hold anticoagulation (3) Acute UTI (urinary tract infection): UA positive for nitrites, esterase, leukocytosis Urine culture growing GNR History of ESBL UTI Continue ertapenem for now and follow-up urine culture (4) Abdominal pain: Ongoing problem Has been following up with surgery Recently seen few days ago and was planned for elective procedure Surgery was consulted. However, would not recommend surgery at this time. Pain control (5) Atrial fibrillation: Rate controlled Also has history of bilateral DVT and PE per oncology records on epic Continue digoxin diltiazem with holding parameters Coumadin on hold due to above bus monitor (6) Cirrhosis: Patient on rifaximin and lactulose at home Review of possible upper GI bleed, ok with continuing antibiotics CT abdomen also showed slight enlargement of indeterminate 2 mm lobular hypodensity in the right lobe of the liver (7) Prostate cancer: History of prostate cancer on Lupron shots (8) Diabetes mellitus, type 2: Hold Metformin Insulin sliding scale per protocol Monitor blood glucose Admission and Anticipated Discharge Date Admission Date: May 08, 2020 Subjective Patient seen and examined. Patient complains of chronic back pain and mild abdominal pain Reports feeling occasionally restless in his legs No nausea or vomiting Patient reported a BM earlier. He stated he did not look at it. One of the guard in the room reported it was black Per RN, patient was reported to have had BM overnight by night RN with some blood in it Review of Systems Review of Systems: All systems reviewed & are unremarkable except as noted in Subjective Physical Exam Constitutional: + well hydrated; no acute distress Eyes: PERRL ENMT: external ear and nose normal, oropharynx normal Respiratory: normal respiratory effort, lungs clear to auscultation Cardiovascular: Rate/Rhythm: regular rate and + irregularly irregular S1 S2 Gastrointestinal (Abdomen): Inspection/Auscultation: abdomen normal to inspection and normal bowel sounds; abdomen not distended Musculoskeletal: no cyanosis or clubbing, extremities motor strength 5/5 Neurologic: PERRL, EOMI, accommodation nl, no face palsy, no dysarthria Psychiatric: A+Ox3, euthymic affect Results & Data Results & Data ([facility]) Vital Signs (Past 12 Hours) Vital Signs Temp Pulse Pulse Resp BP Pulse Ox 05/09/20 07:36 63 05/09/20 04:50 36.5 C 76 18 137/67 98 05/09/20 00:18 36.4 C L 71 20 126/70 96 Laboratory Results Laboratory Results - last 24 hr 05/08/20 05/08/20 05/08/20 01:09 17:35 18:58 WBC RBC Hgb 6.5 L* Hct 19.4 L* MCV MCH MCHC RDW Std Deviation RDW Coeff of Charo Plt Count MPV PT INR Sodium Potassium Chloride Carbon Dioxide Anion Gap BUN Creatinine Est Cr Clr Drug Dosing Est GFR ( Amer) Est GFR (Non-Af Amer) BUN/Creatinine Ratio Glucose POC Glucose 133 H Calcium Blood Type O Positive Antibody Screen NEGATIVE Crossmatch See Detail 05/09/20 05/09/20 05/09/20 00:11 06:09 06:43 WBC 7.56 RBC 2.43 L Hgb 7.8 L Hct 23.0 L MCV 94.7 MCH 32.1 MCHC 33.9 RDW Std Deviation 59.9 H RDW Coeff of Charo 17.9 H Plt Count 137 MPV 10.0 PT INR Sodium Potassium Chloride Carbon Dioxide Anion Gap BUN Creatinine Est Cr Clr Drug Dosing Est GFR ( Amer) Est GFR (Non-Af Amer) BUN/Creatinine Ratio Glucose POC Glucose 119 H 136 H Calcium Blood Type Antibody Screen Crossmatch 05/09/20 05/09/20 05/09/20 06:43 07:50 11:52 WBC RBC Hgb Hct MCV MCH MCHC RDW Std Deviation RDW Coeff of Charo Plt Count MPV PT 14.7 H INR 1.4 H Sodium 145 Potassium 5.0 Chloride 114 H Carbon Dioxide 24 Anion Gap 7.0 BUN 30 H Creatinine 0.97 Est Cr Clr Drug Dosing 67.9 Est GFR ( Amer) 86.9 Est GFR (Non-Af Amer) 75.0 BUN/Creatinine Ratio 31.2 H Glucose 127 H POC Glucose 121 H Calcium 8.6 Blood Type Antibody Screen Crossmatch (1) Abdominal pain Abdominal location: right upper quadrant Qualified Code(s): R10.11 - Right upper quadrant pain (2) Atrial fibrillation Atrial fibrillation type: unspecified chronic Qualified Code(s): I48.20 - Chronic atrial fibrillation, unspecified
--- NOTE | 2020-05-09 12:36 | Anesthesiology Consultation ---
Date of Service May 09, 2020 Assessment & Plan Chart Review Chart Review: Acceptable Risk for Surgery and Patient NOT seen in Pre Admission Testing Consults Requested none ASA ASA4 Proposed Anesthesia Anesthesia Type: General History Surgery Operation Date: 05/09/20 11:30 Proposed Procedures p Esophagogastroduodenoscopy - Clint Mcdonald MD Height/Weight Height: 5 ft 11 in Weight: 90.2 kg Allergies Allergy/AdvReac Type Severity Reaction Status Date / Time doxazosin [From Cardura] Allergy Unknown Unknown Unverified 05/05/20 09:50 prazosin [From Minipress] Allergy Unknown Unknown Unverified 05/05/20 09:50 Medications Home Medications Medication Instructions Recorded Confirmed Last Taken cyanocobalamin (vitamin B-12) 1,000 mcg PO DAILY 06/12/18 05/08/20 05/07/20 [Vitamin B-12] folic acid 1 mg PO QAM 06/12/18 05/08/20 05/07/20 lactulose 30 ml PO BID 06/12/18 05/08/20 05/07/20 lisinopril 5 mg PO QAM 06/12/18 05/08/20 05/07/20 metformin 500 mg PO HS 06/12/18 05/08/20 05/07/20 nitroglycerin [Nitrostat] 0.4 mg SUBLINGUAL UD PRN 06/12/18 05/08/20 Unknown diltiazem HCl 180 mg PO QAM 12/06/18 05/08/20 05/07/20 tamsulosin 0.4 mg PO DAILY 02/06/19 05/08/20 05/07/20 levalbuterol tartrate 45 2 puffs INH QID PRN 04/08/19 05/08/20 Unknown mcg/actuation aerosol inhaler Gaviscon Extra Strength 1 tab PO QID PRN 05/30/19 05/08/20 04/28/20 pantoprazole 40 mg PO BID 05/30/19 05/08/20 05/21/19 paroxetine HCl 20 mg tablet 20 mg PO DAILY 05/04/20 05/08/20 05/07/20 sucralfate 1 gram tablet 1 g PO QID 05/04/20 05/08/20 Unknown acetaminophen-codeine 1 tab PO TID PRN 05/08/20 05/08/2005/07/20 capsaicin 1 applic TOPICAL QID 05/08/20 05/08/20 Unknown diclofenac potassium 50 mg PO BID 05/08/20 05/08/20 05/07/20 digoxin 250 mcg PO DAILY 05/08/20 05/08/20 05/07/20 fluticasone propion-salmeterol 1 inh INHALATION BID 05/08/20 05/08/20 Unknown [Wixela Inhub] leuprolide (3 month) [Lupron Depot 22.5 mg IM UD 05/08/20 05/08/20 Unknown (3 month)] mineral oil-hydrophil petrolat 1 applic TOPICAL DAILY 05/08/20 05/08/20 Unknown [DermaPhor] rifaximin [Xifaxan] 550 mg PO BID 05/08/20 05/08/20 05/07/20 vitamin A and D 1 applic TOPICAL QID 05/08/20 05/08/20 Unknown warfarin 5 mg PO PM 05/08/20 05/08/20 05/07/20 Active Medications Generic Name Dose Route Start Last Admin Trade Name Freq PRN Reason Stop Dose Admin Acetaminophen/Codeine Phosphate 1 tab 05/08/20 14:33 05/09/20 07:17 Acetaminophen W/Codeine #3 1 Tab PO 06/07/20 14:32 1 tab TID PRN Administration Pain Capsaicin 1 appln 05/08/20 09:00 05/09/20 09:45 Capsaicin Cr 0.075% 60 Gm Tube EXT 06/07/20 08:59 1 appln QID STEPHANE Administration Cyanocobalamin 1,000 mcg 05/08/20 09:00 05/09/20 09:44 Cyanocobalamin 500 Mcg Tablet (Vitamin B-12) PO 06/07/20 08:59 1,000 mcg DAILY STEPHANE Administration Digoxin 0.25 mg 05/08/20 16:00 05/08/20 16:35 Digoxin 0.25 Mg Tab PO 06/07/20 15:59 0.25 mg DAILY@1600 STEPHANE Administration Diltiazem HCl 180 mg 05/08/20 09:00 05/09/20 09:44 Diltiazem Hcl 180 Mg Capcr PO 06/07/20 08:59 180 mg QAM STEPHANE Administration Emollient Ointment 1 gm 05/08/20 09:00 05/09/20 10:05 Emollient Ointment 1 Gm EXT 06/07/20 08:59 Not Given DAILY STEPHANE Fluticasone/Vilanterol 1 puffs 05/08/20 09:00 05/09/20 09:46 Fluticasone/Vilanterol 100/25mcg 14 Puffs/Inhaler INH 06/07/20 08:59 1 puffs DAILY STEPHANE Administration Folic Acid 1 mg 05/08/20 09:00 05/09/20 09:45 Folic Acid 1 Mg Tab PO 06/07/20 08:59 1 mg QAM STEPHANE Administration Pantoprazole Sodium 40 mg/ 100 mls @ 20 mls/hr 05/08/20 04:00 05/09/20 10:37 Dextrose IV 06/07/20 03:59 8 mg/hr Q5H STEPHANE 20 mls/hr Administration 8 MG/HR Ertapenem 1,000 mg/ Sodium 60 mls @ 100 mls/hr 05/08/20 06:00 05/09/20 06:28 Chloride IV 05/18/20 05:59 Infused Q24H STEPHANE Infusion Sodium Chloride 1,000 mls @ 50 mls/hr 05/08/20 05:00 05/09/20 00:26 Nss 1000ml IV 06/07/20 04:59 50 mls/hr .Q20H STEPHANE Administration Insulin Aspart 0 units 05/09/20 00:00 05/09/20 06:12 Insulin Aspart 100 Units/Ml 3 Ml Pen SC 06/08/20 00:00 Not Given Q6 STEPHANE Lactulose 20 gm 05/08/20 09:00 05/09/20 09:45 Lactulose Syrup 20 Gm/30 Ml Udc PO 06/07/20 08:59 20 gm BID STEPHANE Administration Levalbuterol HCl 2 puffs 05/08/20 03:43 05/08/20 22:18 Levalbuterol Tartrate 15 Gm Hfa.Aer.Ad INH 06/07/20 03:42 2 puffs QID PRN Administration Shortness Of Breath Or Wheezing Lisinopril 5 mg 05/08/20 09:00 05/09/20 09:45 Lisinopril 5 Mg Tab PO 06/07/20 08:59 5 mg QAM STEPHANE Administration Paroxetine HCl 20 mg 05/08/20 09:00 05/09/20 09:44 Paroxetine Hcl 20 Mg Tab PO 06/07/20 08:59 20 mg DAILY STEPHANE Administration Rifaximin 550 mg 05/08/20 09:00 05/09/20 09:44 Rifaximin 550 Mg Tablet PO 06/07/20 08:59 550 mg BID STEPHANE Administration Sucralfate 1 gm 05/08/20 09:00 05/09/20 09:49 Sucralfate 1 Gm Tab PO 06/07/20 08:59 1 gm QID STEPHANE Administration Tamsulosin HCl 0.4 mg 05/08/20 09:00 05/09/20 09:45 Tamsulosin Hcl 0.4 Mg Cap PO 06/07/20 08:59 0.4 mg DAILY STEPHANE Administration Past Medical History Medical History Allergic rhinitis Anemia Anxiety Atrial fibrillation Bone lesion BPH (benign prostatic hyperplasia) Cataract Bilateral cataracts - had surgery on both eyes; Chronic back pain Chronic pulmonary embolism Cirrhosis Depressive disorder Diabetes mellitus, type 2 Diastolic dysfunction DVT (deep venous thrombosis) GERD (gastroesophageal reflux disease) H/O: CVA (cerebrovascular accident) HTN (hypertension) Incarcerated umbilical hernia Osteoarthritis Peptic ulcer disease Presence of IVC filter Prostate cancer Sciatica Streptococcal bacteremia Thrombocytopenia Tobacco abuse Tremor Exercise / Class Metabolic Activity III < 4 Walking/Shop/Light housework Past Family History Family History Mother , in her 80s Myocardial infarction Stroke Father , in her 60s Myocardial infarction Sister No problems noted. Sister No problems noted. Sister No problems noted. Son No problems noted. Son No problems noted. Son No problems noted. Son No problems noted. Son No problems noted. Daughter No problems noted. Daughter No problems noted. Daughter No problems noted. Daughter No problems noted. Daughter No problems noted. Daughter Unknown family medical history Other Family history non-contributory Past Surgical History Surgical History H/O right knee surgery History of appendectomy History of cataract surgery left. 12/2018. 2mg versed. History of cataract surgery Past Anesthesia History No Hx of Anesthesia Complications and No Family Hx of Anesthesia Complications History of PONV No Hx of PONV and No Hx of Motion Sickness Social History Smoking Status: Current every day smoker tobacco type: smokeless tobacco Smoking cigarettes per day: 20 Do You Dip or Chew Tobacco: No Hx Alcohol Use: No Alcohol type: hard liquor alcohol intake frequency: 3 or more drinks per day Hx Substance Use: No substance use type: does not use Physical Exam Vital Signs Last Vital Signs Temp 36.5 C 05/09/20 04:50 Pulse 63 05/09/20 07:36 Resp 18 05/09/20 04:50 BP 137/67 05/09/20 04:50 Pulse Ox 98 05/09/20 04:50 Testing Laboratory Results 05/09/20 06:43 05/09/20 06:43 PT 14.7 Seconds (9.0-12.0) H 05/09/20 07:50 INR 1.4 (0.9-1.1) H 05/09/20 07:50 Urine Color Yellow 05/08/20 Unknown Urine Appearance Clear (Clear) 05/08/20 Unknown Urine pH 5.0 (4.5-7.5) 05/08/20 Unknown Ur Specific [place] 1.022 (1.000-1.030) 05/08/20 Unknown Urine Protein Negative (Negative) 05/08/20 Unknown Urine Glucose (UA) Negative (Negative) 05/08/20 Unknown Urine Ketones Trace (Negative) H 05/08/20 Unknown Urine Nitrite Positive (Negative) A 05/08/20 Unknown Ur Leukocyte Esterase 2+ (Negative) H 05/08/20 Unknown Urine WBC (Auto) 10-30 /hpf (0-5) H 05/08/20 Unknown Urine RBC (Auto) 0-4 /hpf (0-4) 05/08/20 Unknown U Hyaline Cast (Auto) 1-5 /lpf (0-5) 05/08/20 Unknown U Epithel Cells (Auto) 5-10 /lpf (0-5) H 05/08/20 Unknown Urine Bacteria (Auto) 4+ (Negative) H 05/08/20 Unknown Blood Type O Positive 05/08/20 01:09 Antibody Screen NEGATIVE 05/08/20 01:09 05/08/20 Unknown Urine Culture - Preliminary Urine,Indwelling Cath Gram negative bacilli 05/08/20 02:15 Aerobic Blood Culture - Preliminary Blood No growth in Aerobic bottle after 24 hours. Anaerobic Blood Culture - Preliminary No growth in Anaerobic bottle after 24 hours. 05/08/20 02:19 Aerobic Blood Culture - Preliminary Blood No growth in Aerobic bottle after 24 hours. Anaerobic Blood Culture - Preliminary No growth in Anaerobic bottle after 24 hours. 05/09/20 05/09/20 11:52 06:09 POC Glucose 121 H 136 H Electrocardiogram Date: 05/08/20 Findings: + NSST changes and + AFIB @ (at 66 w/PVC's;LAD;NS IVCD;) Chest X-Ray Date: 05/08/20 Findings: + cardiomegaly and + infiltrate (a few scattered interstitial opacities) mild pulmonary venous HTN Echocardiogram Date: 07/15/18 EF: 55% LV Function: normal Other Findings: + atrial enlargement (LA moderately dilated) and + LVH (mild) Valvular Disease: + MR (moderate) and + pertinent finding (mild TR;mild Ao root dilation)
[2020-05-09] MEDS: SUCRALFATE 1 GM/10 ML UDC PO SCH ×3 (12:47→20:49)
[2020-05-09] MEDS ORDERED: LABETALOL HCL IV 5 MG/ML 20ML IV PRN (13:33)
[2020-05-09] MEDS ORDERED: FLUMAZENIL 0.1 MG/1 ML 10 ML VIAL IV PRN (13:33)
[2020-05-09] MEDS ORDERED: PROMETHAZINE HCL 12.5 MG in SODIUM CHLORIDE 0.9% 50 ML IV PRN (13:33)
[2020-05-09] MEDS ORDERED: NALOXONE HCL 0.4 MG/1 ML VIAL/CARP IV PRN (13:33)
[2020-05-09] MEDS ORDERED: ATROPINE SULFATE 0.1 MG/ML 10ML SYR IV PRN (13:33)
[2020-05-09] MEDS ORDERED: ePHEDrine sulfate 50 MG/ML AMP IV PRN (13:33)
[2020-05-09] MEDS ORDERED: ONDANSETRON INJ 2 MG/ML 2 ML VIAL IV PRN (13:33)
[2020-05-09] MEDS ORDERED: fentaNYL citrate 100 MCG/2 ML VIAL IV PRN (13:33)
--- NOTE | 2020-05-09 14:19 | History & Physical Report ---
Date of Service May 09, 2020 Assessment & Plan Admission and Anticipated Discharge Date Admission Date: May 08, 2020 History of Present Illness Primary Care Provider: RONDA Toro Pt with cirrhosis, anemia for EGD. No overt GIB overnight CV: IRIR Resp: CTA Abd: soft A/P: EGD today Allergies Allergy/AdvReac Type Severity Reaction Status Date / Time doxazosin [From Cardura] Allergy Unknown Unknown Unverified 05/05/20 09:50 prazosin [From Minipress] Allergy Unknown Unknown Unverified 05/05/20 09:50 Home Medications Medication Instructions Recorded Confirmed Type cyanocobalamin (vitamin B-12) 1,000 mcg PO DAILY 06/12/18 05/08/20 History [Vitamin B-12] folic acid 1 mg PO QAM 06/12/18 05/08/20 History lactulose 30 ml PO BID 06/12/18 05/08/20 History lisinopril 5 mg PO QAM 06/12/18 05/08/20 History metformin 500 mg PO HS 06/12/18 05/08/20 History nitroglycerin [Nitrostat] 0.4 mg SUBLINGUAL UD PRN 06/12/18 05/08/20 History diltiazem HCl 180 mg PO QAM 12/06/18 05/08/20 History tamsulosin 0.4 mg PO DAILY 02/06/19 05/08/20 History levalbuterol tartrate 45 2 puffs INH QID PRN 04/08/19 05/08/20 History mcg/actuation aerosol inhaler Gaviscon Extra Strength 1 tab PO QID PRN 05/30/19 05/08/20 History pantoprazole 40 mg PO BID 05/30/19 05/08/20 History paroxetine HCl 20 mg tablet 20 mg PO DAILY 05/04/20 05/08/20 History sucralfate 1 gram tablet 1 g PO QID 05/04/20 05/08/20 History acetaminophen-codeine 1 tab PO TID PRN 05/08/20 05/08/20 History capsaicin 1 applic TOPICAL QID 05/08/20 05/08/20 History diclofenac potassium 50 mg PO BID 05/08/20 05/08/20 History digoxin 250 mcg PO DAILY 05/08/20 05/08/20 History fluticasone propion-salmeterol 1 inh INHALATION BID 05/08/20 05/08/20 History [Wixela Inhub] leuprolide (3 month) [Lupron Depot 22.5 mg IM UD 05/08/20 05/08/20 History (3 month)] mineral oil-hydrophil petrolat 1 applic TOPICAL DAILY 05/08/20 05/08/20 History [DermaPhor] rifaximin [Xifaxan] 550 mg PO BID 05/08/20 05/08/20 History vitamin A and D 1 applic TOPICAL QID 05/08/20 05/08/20 History warfarin 5 mg PO PM 05/08/20 05/08/20 History Past Med/Surg History Medical History Allergic rhinitis Anemia Anxiety Atrial fibrillation Bone lesion BPH (benign prostatic hyperplasia) Cataract Bilateral cataracts - had surgery on both eyes; Chronic back pain Chronic pulmonary embolism Cirrhosis Depressive disorder Diabetes mellitus, type 2 Diastolic dysfunction DVT (deep venous thrombosis) GERD (gastroesophageal reflux disease) H/O: CVA (cerebrovascular accident) HTN (hypertension) Incarcerated umbilical hernia Osteoarthritis Peptic ulcer disease Presence of IVC filter Prostate cancer Sciatica Streptococcal bacteremia Thrombocytopenia Tobacco abuse Tremor Surgical History H/O right knee surgery History of appendectomy History of cataract surgery left. 12/2018. 2mg versed. History of cataract surgery Family History Mother , in her 80s Myocardial infarction Stroke Father , in her 60s Myocardial infarction Sister No problems noted. Sister No problems noted. Sister No problems noted. Son No problems noted. Son No problems noted. Son No problems noted. Son No problems noted. Son No problems noted. Daughter No problems noted. Daughter No problems noted. Daughter No problems noted. Daughter No problems noted. Daughter No problems noted. Daughter Unknown family medical history Other Family history non-contributory Social History Smoking Status: Current every day smoker Tobacco Type: Cigarettes Age Started Using Tobacco: 11; Cigarettes Per Day: 20; Second Hand Exposure: No; Do You Dip or Chew Tobacco: No; Tobacco Cessation Education Requested by Patient: No Hx Alcohol Use: No Hx Substance Use: No Preferred Language: Citizen Of [place] Communication Ability: Effective Visual Impairment: No Limitations Hearing Ability: Normal Otolaryngology Physician Required: No Beliefs That Will Affect Care: None marital status: Single Current Living Situation: Other Current Living Situation Comment: [facility]al facility current occupational status: unemployed Other Information That Helps Us Care for You: No Feels Safe at Home: Yes Safety Concerns: Feels Safe At This Time caffeine: Yes (2 cups/day) during the past year weight has: remained stable Assistive Devices: None Results & Data ([facility]) Vital Signs (Past 12 Hours) Vital Signs Temp Pulse Pulse Resp BP Pulse Ox 05/09/20 07:36 63 05/09/20 04:50 36.5 C 76 18 137/67 98 Code Status & VTE Plan VTE Prophylaxis Plan VTE Prophylaxis will be ordered: Yes
[2020-05-09] MEDS ORDERED: ONDANSETRON INJ 2 MG/ML 2 ML VIAL ONE (14:23)
[2020-05-09] MEDS ORDERED: LIDOCAINE HCL 2% 2 ML VIAL/AMP(20MG/ML) INFIL ONE (14:23)
[2020-05-09] MEDS ORDERED: PROPOFOL IV EMULSION 10 MG/ML 20 ML VIAL IV ONE (14:23)
[2020-05-09] MEDS ORDERED: fentaNYL citrate 100 MCG/2 ML VIAL ONE (14:23)
[2020-05-09] MEDS ORDERED: SUCCINYLCHOLINE CHLORIDE 20 MG/ML 10 ML VIAL IV ONE (14:25)
--- NOTE | 2020-05-09 15:15 | GI REPORT ---
Patient Name: Good Ramírez Procedure Date: 05/09/2020 2:31 PM Date of : 1940 Admit Type: Inpatient Age: 79 Gender: Male Attending MD: Clint Mcdonald MD Procedure: Upper GI endoscopy Providers: Clint Mcdonald MD Referring MD: Cortez Brooks Indications: Acute post hemorrhagic anemia Medicines: See the Anesthesia note for documentation of the administered medications Complications: No immediate complications. Estimated Blood Loss: Estimated blood loss: none. Procedure: Pre-Anesthesia Assessment: - ASA Grade Assessment: IV - A patient with severe systemic disease that is a constant threat to life. After obtaining informed consent, the endoscope was passed under direct vision. Throughout the procedure, the patient's blood pressure, pulse, and oxygen saturations were monitored continuously. The Endoscope was introduced through the mouth, and advanced to the third part of duodenum. The upper GI endoscopy was accomplished without difficulty. The patient tolerated the procedure well. Findings: The esophagus was unremarkable. There were no esophageal varices. The Z line was at 40 cm. There were no gastric varices.. There was no portal gastropathhy. There were a few antral erosions. Random biopsies done from stomach. There was a large cratered clean based ulcer in the posterior wall of the duodenal bulb. There was marked edema of the ulcer edge, with narrowing of the lumen and some mas effect. The ulcer base was brushed and the ulcer edge was biopsied. The remainder of the duodenum was normal. Impression: Large clean based duodenal ulcer.. Recommendation: - Discharge patient to floor. - Full liquid diet today, then advance as tolerated. OK for discharge tomorrow, from my perspective, if hgb stable overnight. - BID PPi x 8 weeks. Carafate 1 gm TID x 8 weeks. Iron and folate supplementation. - Hp stool antigen. Avoid NSAIDs. - Repeat EGD in 8 weeks. Will defer to Alyson to arrange this. - Pt remains at risk for recurrent GI bleeding. If possible would recommend continuing to hold anticoagulation for 1 week; I will defer to cardiology servie in this regard. Pt will need close monitoring of INR as outpt, as he remains at risk for GI bleeding if INR is supra-therapeutic. Clint Mcdonald M.D. Clint Mcdonald MD 05/09/2020 3:15:09 PM This report has been signed electronically. Note Initiated On: 05/09/2020 2:31 PM Number of Addenda: 0 I attest to the content of the Intraoperative Record and orders documented therein, exceptions below {[id number]}
--- NOTE | 2020-05-09 15:43 | Anesthesiology Progress Note ---
Date of Service May 09, 2020 Anesthesia Post Procedure Vital Signs Vital Signs: Temp Pulse Pulse Resp BP BP BP 05/09/20 15:30 57 L 17 115/55 L 05/09/20 15:20 59 L 14 114/45 L 05/09/20 15:12 37.1 C 71 14 115/53 L 05/09/20 10:40 57 L 17 97/54 L 05/09/20 07:36 63 05/09/20 04:50 36.5 C 76 18 137/67 05/09/20 00:18 36.4 C L 71 20 126/70 05/08/20 22:18 64 16 05/08/20 20:20 61 14 144/70 H 05/08/20 20:05 36.5 C 69 20 147/78 H 05/08/20 20:03 36.7 C 67 16 124/69 05/08/20 19:46 36.5 C 74 16 129/74 05/08/20 16:35 63 05/08/20 16:05 36.7 C 67 20 156/73 H Pulse Ox 05/09/20 15:30 100 05/09/20 15:20 100 05/09/20 15:12 98 05/09/20 10:40 100 05/09/20 07:36 05/09/20 04:50 98 05/09/20 00:18 96 05/08/20 22:18 98 05/08/20 20:20 98 05/08/20 20:05 97 05/08/20 20:03 99 05/08/20 19:46 99 05/08/20 16:35 05/08/20 16:05 99 Pain Intensity Abdomen: Pain Intensity: 6 Transfer of Care Handoff Completed per policy Notes Mental Status: alert / awake / arousable Patient Amnestic to Procedure: Yes Nausea / Vomiting: adequately controlled Pain: adequately controlled Airway Patency, RR, SpO2: stable & adequate BP & HR: stable & adequate Hydration State: stable & adequate Anesthetic Complications: no major complications apparent
[2020-05-09] MEDS: DIGOXIN 0.25 MG TAB PO SCH (16:15)
[2020-05-09] MEDS ORDERED: Nursing to Pharmacy Communication SCH (16:30)
[2020-05-09] MEDS: PANTOprazole 40 MG TAB PO SCH (20:49)
[2020-05-10] MEDS: ERTAPENEM SODIUM 1,000 MG in SODIUM CHLORIDE 0.9% 50 ML IV SCH (05:10)
[2020-05-10 06:04] LABS: Estimated Average Glucose 105 mg/dl; Hemoglobin A1C 5.3 % (4.5-5.6)
[2020-05-10 08:11] LABS: Hematocrit (blood only) 23.2 % (42-52); Hemoglobin 7.8 g/dL (14.0-18.0); Mean Corpuscular Hemoglobin 32.5 pg (25-34); Mean Corpuscular Hgb Conc 33.6 g/dL (32-36); Mean Corpuscular Volume 96.7 fL (80-100); Mean Platelet Volume 10.3 fL (7.4-10.4); Platelet Count 137 K/uL (130-400); RDW Standard Deviation 60.7 fL (36.4-46.3); White Blood Count 6.47 K/uL (4.8-10.8)
[2020-05-10 08:17] LABS: INR 2.1 (0.9-1.1); Prothrombin Time 20.9 Seconds (9.0-12.0)
[2020-05-10 08:47] LABS: BUN Creatinine Ratio 20.9 (10-20); Calcium 8.7 mg/dl (8.5-10.1); Creatinine Clr Calc Pharmacy 71.6 ml/min; Est GFR (African American) 92.7; Est GFR (Non-African American) 79.9
[2020-05-10] MEDS: FERROUS SULFATE 325 MG TAB PO SCH (09:40)
[2020-05-10] MEDS: FLUTICASONE/VILANTEROL 100/25MCG 14 PUFFS/INHALER INH SCH (09:42)
[2020-05-10] MEDS: dilTIAZem HCL 180 MG CAPCR PO SCH (09:43)
[2020-05-10] MEDS: SUCRALFATE 1 GM/10 ML UDC PO SCH (09:43)
[2020-05-10] MEDS: TAMSULOSIN HCL 0.4 MG CAP PO SCH (09:44)
[2020-05-10] MEDS: LACTULOSE SYRUP 20 GM/30 ML UDC PO SCH ×4 (09:44→19:44)
[2020-05-10] MEDS: PANTOprazole 40 MG TAB PO SCH ×2 (09:45→19:41)
[2020-05-10] MEDS: FOLIC ACID 1 MG TAB PO SCH (09:45)
[2020-05-10] MEDS: PARoxetine HCL 20 MG TAB PO SCH (09:45)
[2020-05-10] MEDS: CYANOCOBALAMIN 500 MCG TABLET (VITAMIN B-12) PO SCH (09:46)
[2020-05-10] MEDS: rifAXIMin 550 MG TABLET PO SCH ×2 (09:46→19:41)
[2020-05-10] MEDS: CAPSAICIN CR 0.075% 60 GM TUBE EXT SCH ×4 (09:47→19:42)
[2020-05-10] MEDS: lisinopril 5 MG TAB PO SCH (09:47)
[2020-05-10] MEDS: EMOLLIENT OINTMENT 1 GM EXT SCH (09:51)
[2020-05-10] MEDS: INSULIN ASPART 100 UNITS/ML 3 ML PEN SC SCH ×4 (10:02→19:54)
[2020-05-10] MEDS ORDERED: GLUCAGON FOR INJ 1 MG VIAL SQ PRN (10:21)
--- NOTE | 2020-05-10 11:44 | Hospitalist Progress Note ---
Date of Service May 10, 2020 Assessment & Plan (1) Symptomatic anemia: Hemoglobin is 6.5 on admission Supratherapeutic INR s/p 3PRBC Hb is stable at 7.8 Upper GI bleeding EGD done on 05/09/2020 showed unremarkable esophagus without varices, no gastric varices or portal gastropathy, large cratered clean-based ulcer in the posterior wall of the duodenal bulb Continue PPI twice daily for the next 8 weeks with sucralfate Will need repeat EGD in 8 weeks. Advance diet Avoid NSAIDs (2) Supratherapeutic INR: INR was 9.7 on admission Got vitamin K INR 2.1 this morning Continue to hold anticoagulation Will need anticoagulation held for the next 1 week per GI recommendation. (3) Acute UTI (urinary tract infection): UA positive for nitrites, esterase, leukocytosis Urine culture growing ESBL E. coli History of ESBL UTI Continue ertapenem for now. Day 3 today (4) Abdominal pain: Ongoing problem Likely related to duodenal ulcer as above Also has cholelithiasis for which he has been following up with surgery and was initially planned for elective procedure Patient can follow-up surgery outpatient for reevaluation for that Pain control (5) Atrial fibrillation: Rate controlled Also has history of bilateral DVT and PE per oncology records on epic Continue digoxin diltiazem with holding parameters Coumadin on hold due to above playground monitor (6) Cirrhosis: Patient on rifaximin and lactulose at home Review of possible upper GI bleed, ok with continuing antibiotics CT abdomen also showed slight enlargement of indeterminate 2 mm lobular hypodensity in the right lobe of the liver (7) Prostate cancer: History of prostate cancer on Lupron shots (8) Diabetes mellitus, type 2: Hold Metformin Insulin sliding scale per protocol Monitor blood glucose I called over to [facility] and spoke to the Physician motors and controls tester. I informed him about the presentation, plans. He stated they will need at least one day to get the ertapenem. I also discussed GI recommendations, medication changes with him Possible plan to discharge tomorrow based on clinical status Admission and Anticipated Discharge Date Admission Date: May 08, 2020 Subjective Patient seen and examined Reports mild abdominal pain and hungry Reports he has had 3 melanotic stool since my evaluation yesterday Denies any dizziness, palpitation, shortness of breath Denies any chest pain, cough Denies any dysuria, frequency at this time but stated that occasionally he used to get some mild dysuria in the past Review of Systems Review of Systems: All systems reviewed & are unremarkable except as noted in Subjective Physical Exam Constitutional: + well hydrated; no acute distress Eyes: PERRL Pale conjunctiva ENMT: external ear and nose normal, oropharynx normal Respiratory: normal respiratory effort, lungs clear to auscultation Cardiovascular: Rate/Rhythm: regular rate and + irregularly irregular S1- S2. No pedal edema Gastrointestinal (Abdomen): Inspection/Auscultation: abdomen normal to inspection and normal bowel sounds; abdomen not distended Right upper abdominal and epigastric tenderness Musculoskeletal: no cyanosis or clubbing, extremities motor strength 5/5 Neurologic: PERRL, EOMI, accommodation nl, no face palsy, no dysarthria Psychiatric: A+Ox3, euthymic affect Results & Data Results & Data ([facility]) Vital Signs (Past 12 Hours) Vital Signs Temp Pulse Pulse Resp BP Pulse Ox 05/10/20 10:36 36.7 C 77 18 159/70 H 98 05/10/20 08:45 37.0 C 81 18 157/70 H 96 05/10/20 08:32 78 05/10/20 03:02 36.7 C 77 19 163/76 H 97 05/09/20 23:50 36.5 C 80 130/69 98 Laboratory Results Laboratory Results - last 24 hr 05/08/20 05/09/20 05/09/20 10:08 11:52 16:13 WBC RBC Hgb Hct MCV MCH MCHC RDW Std Deviation RDW Coeff of Charo Plt Count MPV PT INR Sodium Potassium Chloride Carbon Dioxide Anion Gap BUN Creatinine Est Cr Clr Drug Dosing Est GFR ( Amer) Est GFR (Non-Af Amer) BUN/Creatinine Ratio Glucose POC Glucose 121 H 119 H Estimat Average Glucose 105 Hemoglobin A1c 5.3 Calcium 05/09/20 05/10/20 05/10/20 20:27 06:46 06:46 WBC 6.47 RBC 2.40 L Hgb 7.8 L Hct 23.2 L MCV 96.7 MCH 32.5 MCHC 33.6 RDW Std Deviation 60.7 H RDW Coeff of Charo 18.0 H Plt Count 137 MPV 10.3 PT 20.9 H INR 2.1 H Sodium Potassium Chloride Carbon Dioxide Anion Gap BUN Creatinine Est Cr Clr Drug Dosing Est GFR ( Amer) Est GFR (Non-Af Amer) BUN/Creatinine Ratio Glucose POC Glucose 116 H Estimat Average Glucose Hemoglobin A1c Calcium 05/10/20 05/10/20 05/10/20 06:46 07:55 11:40 WBC RBC Hgb Hct MCV MCH MCHC RDW Std Deviation RDW Coeff of Charo Plt Count MPV PT INR Sodium 143 Potassium 4.0 D Chloride 114 H Carbon Dioxide 24 Anion Gap 6.0 BUN 19 H Creatinine 0.92 Est Cr Clr Drug Dosing 71.6 Est GFR ( Amer) 92.7 Est GFR (Non-Af Amer) 79.9 BUN/Creatinine Ratio 20.9 H Glucose 100 H POC Glucose 117 H 104 H Estimat Average Glucose Hemoglobin A1c Calcium 8.7 (1) Atrial fibrillation Atrial fibrillation type: unspecified chronic Qualified Code(s): I48.20 - Chronic atrial fibrillation, unspecified (2) Abdominal pain Abdominal location: right upper quadrant Qualified Code(s): R10.11 - Right upper quadrant pain
[2020-05-10] MEDS: SUCRALFATE 1 GM TAB PO SCH ×4 (13:46→19:46)
[2020-05-10] MEDS: ACETAMINOPHEN W/CODEINE #3 1 TAB PO PRN (13:46)
[2020-05-10] MEDS: DIGOXIN 0.25 MG TAB PO SCH (16:39)
[2020-05-11 05:52] LABS: Hematocrit (blood only) 22.8 % (42-52); Hemoglobin 7.8 g/dL (14.0-18.0); Mean Corpuscular Hemoglobin 33.3 pg (25-34); Mean Corpuscular Hgb Conc 34.2 g/dL (32-36); Mean Corpuscular Volume 97.4 fL (80-100); Mean Platelet Volume 9.8 fL (7.4-10.4); Platelet Count 128 K/uL (130-400); RDW Coefficient of Variation 17.8 % (11.5-14.5); RDW Standard Deviation 59.4 fL (36.4-46.3); Red Blood Count 2.34 M/uL (4.7-6.1); White Blood Count 7.25 K/uL (4.8-10.8)
[2020-05-11 06:01] LABS: INR 3.1 (0.9-1.1); Prothrombin Time 31.1 Seconds (9.0-12.0)
[2020-05-11] MEDS: ERTAPENEM SODIUM 1,000 MG in SODIUM CHLORIDE 0.9% 50 ML IV SCH (06:03)
[2020-05-11 06:10] LABS: BUN Creatinine Ratio 19.2 (10-20); Calcium 8.3 mg/dl (8.5-10.1); Creatinine Clr Calc Pharmacy 67.2 ml/min; Est GFR (African American) 85.8; Est GFR (Non-African American) 74.1; Magnesium 2.2 mg/dl (1.8-2.4); Phosphorus 2.4 mg/dl (2.5-4.9); Potassium 4.1 mmol/L (3.5-5.1)
[2020-05-11] MEDS: ACETAMINOPHEN W/CODEINE #3 1 TAB PO PRN (06:36)
[2020-05-11] MEDS: PARoxetine HCL 20 MG TAB PO SCH (07:54)
[2020-05-11] MEDS: CYANOCOBALAMIN 500 MCG TABLET (VITAMIN B-12) PO SCH (07:54)
[2020-05-11] MEDS: rifAXIMin 550 MG TABLET PO SCH (07:54)
[2020-05-11] MEDS: lisinopril 5 MG TAB PO SCH (07:54)
[2020-05-11] MEDS: FOLIC ACID 1 MG TAB PO SCH (07:54)
[2020-05-11] MEDS: dilTIAZem HCL 180 MG CAPCR PO SCH (07:54)
[2020-05-11] MEDS: FERROUS SULFATE 325 MG TAB PO SCH (07:54)
[2020-05-11] MEDS: FLUTICASONE/VILANTEROL 100/25MCG 14 PUFFS/INHALER INH SCH (07:54)
[2020-05-11] MEDS: SUCRALFATE 1 GM TAB PO SCH (07:54)
[2020-05-11] MEDS: PANTOprazole 40 MG TAB PO SCH (07:54)
[2020-05-11] MEDS: TAMSULOSIN HCL 0.4 MG CAP PO SCH (07:55)
[2020-05-11] MEDS: EMOLLIENT OINTMENT 1 GM EXT SCH (08:00)
[2020-05-11] MEDS: INSULIN ASPART 100 UNITS/ML 3 ML PEN SC SCH ×2 (08:00→11:29)
[2020-05-11] MEDS: CAPSAICIN CR 0.075% 60 GM TUBE EXT SCH ×2 (08:00→08:01)
[2020-05-11] MEDS: LACTULOSE SYRUP 20 GM/30 ML UDC PO SCH (08:01)
--- NOTE | 2020-05-11 11:34 | Discharge Summary ---
Date of Service May 11, 2020 Admission HPI Per Admitting Provider 79-year-old male with past medical history significant for history of cirrhosis, history of UTIs with ESBL, history of atrial fibrillation, on Coumadin, history of prostate cancer, history of diastolic dysfunction, diabetes type 2, BPH, GERD, recently found to have gallstones. There is plan for elective laparoscopic cholecystectomy, the patient is having abdominal pain for last 2 months, and the pain is getting worse, right upper quadrant abdominal pain. The patient says also for 1 month he is feeling dizzy, when he was standing up he is getting dizzy. Dizziness is getting progressively worse, in last 1-week it got severe like could not even stand for long time and his legs getting weak. Because of dizziness and abdominal pain, EMS was called, when EMS is present, his heart rate was in 30s, and blood pressure in 70s, but according to EMS monitor the heart rate improved to 56, patient blood pressure, also improved and patient was brought in here. His COVID was negative. His labs showed hemoglobin of 6.5. His INR was greater than 9.7. Lactate was 1.1. Lipase was normal. Procalcitonin was unremarkable. UA was positive. Digoxin was normal at 1. Flu was negative and the patient's imaging studies were also unremarkable. The patient has a likelihood of a remote history of alcoholism 40 years ago and also diagnosed with ulcer disease at that time. Currently denies any blood in the stools or black stools. No hematuria. Requesting pain medication for his abdominal pain in the right upper quadrant. Denies any chest pain, no shortness of breath, no cough, no fever, no chills, no headache. He says he has cataracts and has some blurry vision and did not see eye doctor for a long time. Denies any earache, no runny nose, no sore throat, no difficulty swallowing. Could not eating much because of his nausea and abdominal pain. No swelling in the legs seen. Currently resting comfortably and hemodynamically stable. Admission Exam Per Admitting Provider GENERAL: The patient is of moderate build, not in acute distress. VITAL SIGNS: Temperature 36.6, pulse 67, respiratory rate 15, blood pressure 108/54, oxygen 97% room air. HEENT: Pupils equal, round, reactive to light. Oral mucosa moist. NECK: No neck masses seen, supple. CARDIOVASCULAR: S1, S2 heard, regular rate and rhythm, no murmur, no gallop. RESPIRATORY SYSTEM: Normal AP diameter. No accessory muscle use. No wheezing, no crackles. ABDOMEN: Soft, bowel sounds present. Tenderness in epigastric and right upper quadrant region, mild guarding, no rigidity. No distention present. CENTRAL NERVOUS SYSTEM: Cranial nerves II-XII grossly intact. Nonfocal. EXTREMITIES: No edema, no erythema. Principal Diagnosis Acute on chronic anemia Upper gastrointestinal bleeding Duodenal ulcer Supratherapeutic INR Discharge Exam Constitutional + well hydrated; no acute distress Eyes PERRL Pale conjunctiva ENMT external ear and nose normal, oropharynx normal Respiratory normal respiratory effort, lungs clear to auscultation Cardiovascular Rate/Rhythm: regular rate and + irregularly irregular S1-S2 Gastrointestinal (Abdomen) Inspection/Auscultation: abdomen normal to inspection and normal bowel sounds; abdomen not distended Mild epigastric tenderness (improved) Musculoskeletal no cyanosis or clubbing, extremities motor strength 5/5 No pedal edema Neurologic PERRL, EOMI, accommodation nl, no face palsy, no dysarthria Psychiatric A+Ox3, euthymic affect Discharge Data Allergies Allergy/AdvReac Type Severity Reaction Status Date / Time doxazosin [From Cardura] Allergy Unknown Unknown Unverified 05/05/20 09:50 prazosin [From Minipress] Allergy Unknown Unknown Unverified 05/05/20 09:50 Consultations 05/08/20 01:55 ED Decision to Admit Stat 05/08/20 03:43 Consult Case Management - Discharge Planning Routine 05/08/20 08:00 Consult Gastroenterology Routine Consult General Surgery Routine Procedures Performed Operation Date: 05/09/20 11:30 Actual Procedures p Esophagogastroduodenoscopy(Not Applicable) - Clint Mcdonald MD The esophagus was unremarkable. There were no esophageal varices. The Z line was at 40 cm. There were no gastric varices.. There was no portal gastropathhy. There were a few antral erosions. Random biopsies done from stomach. There was a large cratered clean based ulcer in the posterior wall of the duodenal bulb. There was marked edema of the ulcer edge, with narrowing of the lumen and some mas effect. The ulcer base was brushed and the ulcer edge was biopsied. The remainder of the duodenum was normal. Impression: Large clean based duodenal ulcer.. Recommendation: - Discharge patient to floor. - Full liquid diet today, then advance as tolerated. OK for discharge tomorrow, from my perspective, if hgb stable overnight. - BID PPi x 8 weeks. Carafate 1 gm TID x 8 weeks. Iron and folate supplementation. - Hp stool antigen. Avoid NSAIDs. - Repeat EGD in 8 weeks. Will defer to Alyson to arrange this. - Pt remains at risk for recurrent GI bleeding. If possib le would recommend continuing to hold anticoagulation for 1 week; I will defer to cardiology service in this regard. Pt will need close monitoring of INR as outpt, as he remains at risk for GI bleeding if INR is supra-therapeutic. Ordered Studies 05/08/20 00:09 CT abd pelvis IV con only Urgent Lower chest: There is mild dependent atelectasis Liver: The liver has a cirrhotic morphology. There is slight increase in the size of a lobular 23 mm hypodense lesion within the right lobe the liver. Gallbladder: Cholelithiasis. Minimal pericholecystic fluid. Spleen: Mildly enlarged measuring 14 cm with perisplenic varices. Pancreas: Unremarkable. Adrenal glands: Unremarkable. Kidneys: There is a 1 cm right renal hypodensity, statistically representing a cyst. No left kidney is visualized. Bowel: There are no transition zones indicate bowel obstruction. There is moderate rectal stool. There is no evidence of acute diverticulitis. By history the appendix is surgically absent. Peritoneum: There is no intraperitoneal free air or abdominal ascites. Vasculature: There is no evidence of abdominal aortic aneurysm. There is an indwelling IVC filter. Adenopathy: None. Pelvic viscera: There is mild prostatomegaly and minor bladder wall thickening. Skeletal structures: No destructive osseous lesions are seen. IMPRESSION: 1. Cirrhosis with splenomegaly and prominent varices 2. Slight enlargement in an indeterminate 22 mm lobular hypodense lesion within the right lobe the liver 3. Cholelithiasis with minimal pericholecystic fluid 4. No evidence of bowel obstruction. No evidence of free air. 5. No left kidney identified. 05/08/20 01:28 CT head/brain wo con Urgent No intra or extra-axial mass lesions are visualized. There is no CT evidence of acute cortical infarction. There is no evidence of midline shift. There is no acute hemorrhage. No calvarial fractures are visualized. There are patchy white matter hypodensities likely on a small vessel basis. There is no evidence of pathologic ventricular dilatation. There is no evidence of acute sinusitis IMPRESSION: No acute intracranial findings Hospital Course (1) Supratherapeutic INR: (2) Symptomatic anemia: Acute on chronic anemia Upper GI bleed Duodenal ulcer Hemoglobin is 6.5 on admission Supratherapeutic INR INR was 9.7 on admission Got vitamin K with INR correction to 1.4 s/p 3PRBC Hb is stable at 7.8 for the past 3 days EGD done on 05/09/2020 showed unremarkable esophagus without varices, no gastric varices or portal gastropathy, large cratered clean-based ulcer in the posterior wall of the duodenal bulb Continue PPI twice daily for the next 8 weeks with sucralfate Will need repeat EGD in 8 weeks. Avoid NSAIDs Even though warfarin has been on hold since admission, INR has been gradually coming up. INR 3.1 today Likely due to liver cirrhosis as well. Will need monitoring of INR and hemoglobin outpatient High risk for rebleeding (3) Acute UTI (urinary tract infection): UA positive for nitrites, esterase, leukocytosis Urine culture growing ESBL E. coli History of ESBL UTI Continue ertapenem for another 3 days to complete 1 week treatment (4) Abdominal pain: Ongoing problem Likely related to duodenal ulcer as above Also has cholelithiasis for which he has been following up with surgery and was initially planned for elective procedure Patient can follow-up surgery outpatient for reevaluation for that Pain control (5) Atrial fibrillation: Rate controlled Also has history of bilateral DVT and PE per oncology records on epic Continue digoxin diltiazem with holding parameters Coumadin on hold due to above museum docent (6) Cirrhosis: Patient on rifaximin and lactulose at home Review of possible upper GI bleed, ok with continuing antibiotics CT abdomen also showed slight enlargement of indeterminate 2 mm lobular hypodensity in the right lobe of the liver (7) Prostate cancer: History of prostate cancer on Lupron shots (8) Diabetes mellitus, type 2: Continue home Metformin Diabetes mellitus controlled A1c 5.3 I called over to [facility] and spoke to the Physician religious education coordinator yesterday I informed him about the presentation, plans. I also discussed GI recommendations, medication changes with him Total Time Total Time Spent Total Time Spent (In Minutes): 45 Total Time Includes: Examination of the Patient, Discharge Planning, Medication Reconciliation and Communication With Other Providers Discharge Plan Discharge Items [facility] Disposition: [facility] Reason For Visit: ABDOMINAL PAIN, DIZZINESS Discharge Diagnosis: Acute on chronic anemia Upper gastrointestinal bleeding Duodenal ulcer Supratherapeutic INR Activity: Resume your previous activity Non-emergency contact: Primary Care Provider and Rope Twisting Machine Operator Call non-emergency contact if: you have any medication questions and your symptoms worsen Follow-up/Referrals: Cortez BOND [Primary Care Provider] - Diet: Carb Consistent or DM2 and Heart Healthy Addtl Attending Provider Instructions: Mr. Ramírez You came to the hospital complaining of worsening abdominal pain and dizziness. You were evaluated and found to have symptomatic anemia with low blood level [hemoglobin of 6.5] You were extensively evaluated. You had upper endoscopy which showed duodenal ulcer. You received 3 units of blood and your hemoglobin level has been stable at 7.8 for the last 3 days. You may continue to have dark stools over the next few days as we discussed due to old blood and also iron pills. However, your physician at the correctional facility can check blood work [hemoglobin, INR] in 2 days was needed to continue to assess. Please stop taking any NSAIDs. Your INR level was very high on admission (>9.7). This is likely due to your warfarin or Coumadin in the background of liver cirrhosis. Your Coumadin was stopped. Your INR had to be reversed. Your INR today 3.1 Please stop taking Coumadin at least for the next one week. Your physician may be assessed resuming this with the rotary rig engine operator if needed after 1 week. Your physician for follow-up INR over the next few days You were started on pantoprazole and sucralfate for the duodenal ulcer. You need to continue this for 8 weeks. You will need a repeat upper endoscopy in 8 weeks to assess healing of the ulcer. Your physician should arrange this with the qa analyst. Please avoid any NSAIDs [diclofenac, ibuprofen, naproxen or the likes] You also had ESBL E. coli urinary tract infection. You are currently on ertapenem. Please continue this for the next 3 days to complete therapy. You can follow-up surgery outpatient for further evaluation and plans for your gallstones. These recommendations were relayed to physician at the [facility] It was a pleasure taking care of you Pending Studies at Discharge: No Stand-Alone Forms: My [facility] Skilled Items Patient informed of condition?: Yes Discharge Level of Care: Other Communicable Disease: No Discharge Prognosis: Stable Lines: None Urinary Catheter: No Medications and DC Order Prescriptions: New ferrous sulfate 325 mg (65 mg iron) Tablet,Delayed Release (Dr/Ec) 325 mg PO QDB 30 Days Qty: 30 RF: 0 ertapenem 1 gram recon soln 1 g IV DAILY 3 Days Qty: 3 RF: 0 Continued levalbuterol tartrate [Xopenex HFA] 45 mcg/actuation HFA aerosol inhaler 2 puffs INH QID PRN (Reason: Shortness Of Breath Or Wheezing) RF: 0 paroxetine HCl [Paxil] 20 mg tablet 20 mg PO DAILY RF: 0 tamsulosin 0.4 mg Capsule 0.4 mg PO DAILY RF: 0 Gaviscon Extra Strength 160-105 mg Tablet,Chewable 1 tab PO QID PRN (Reason: Indigestion) RF: 0 folic acid 1 mg Tablet 1 mg PO QAM RF: 0 metformin 500 mg Tablet 500 mg PO HS RF: 0 lisinopril 5 mg Tablet 5 mg PO QAM RF: 0 cyanocobalamin (vitamin B-12) [Vitamin B-12] 1,000 mcg Tablet 1,000 mcg PO DAILY RF: 0 nitroglycerin [Nitrostat] 0.4 mg Tablet, Sublingual 0.4 mg Sublingual UD PRN (Reason: Chest Pain) RF: 0 lactulose 10 gram/15 mL Solution 30 ml PO BID RF: 0 diltiazem HCl 180 mg Capsule,Extended Release 24hr 180 mg PO QAM RF: 0 acetaminophen-codeine 300-30 mg Tablet 1 tab PO TID PRN (Reason: Pain) RF: 0 fluticasone propion-salmeterol [Wixela Inhub] 100-50 mcg/dose Blister With Device 1 inh INHALATION BID RF: 0 vitamin A and D Ointment 1 applic TOPICAL QID RF: 0 DermaPhor Ointment 1 applic TOPICAL DAILY RF: 0 digoxin 250 mcg (0.25 mg) Tablet 250 mcg PO DAILY RF: 0 capsaicin 0.025 % Cream 1 applic TOPICAL QID RF: 0 Xifaxan 550 mg Tablet 550 mg PO BID RF: 0 Lupron Depot (3 month) 22.5 mg Syringe Kit 22.5 mg IM UD RF: 0 pantoprazole 40 mg Tablet,Delayed Release (Dr/Ec) 40 mg PO BID 56 Days Qty: 112 RF: 0 Changed sucralfate [Carafate] 1 gram tablet 1 g PO TID 56 Days Qty: 168 RF: 0 Discontinued warfarin 5 mg tablet 5 mg PO PM RF: 0 diclofenac potassium 50 mg Tablet 50 mg PO BID RF: 0 Discharge Orders: Discharge Order (Routine); Ordered 05/11/20 Ordered By: Desiree Retana Admission Data Admit Date/Time: 05/08/20 03:13 Attending Provider: Desiree Retana I. Admit Provider: Roby Clarke Primary Care Provider: Cortez BOND Other Providers: Demetrius Ken ; Roby Clarke ; Clint Mcdonald ; Vivek Fregoso Other Interventions: Discharge Summary Assessment (RN) Last Done: 05/11/20 11:34
== END 2020-05-11 11:55 | DRG 813 ==
LOC: ED 23:54 → SUATTDRO 05-08 03:13 → EDINP 05-08 03:13 → 2S 05-08 14:03 → 2W 05-10 20:14

== ENCOUNTER 2020-05-22 01:17 | Inpatient (IN) ==
[2020-05-22] MEDS ORDERED: PANTOPRAZOLE BOLUS/DRIP 1 EA IV STA (02:12)
[2020-05-22] MEDS ORDERED: PANTOprazole 80 MG in DEXTROSE 5% 100 ML IV ONE (02:12)
[2020-05-22 02:21] LABS: INR 1.2 (0.9-1.1); Partial Thromboplastin Ratio 0.8; Partial Thromboplastin Time 23.1 Seconds (21.0-31.0)
[2020-05-22 02:24] LABS: Hemoglobin 4.8 g/dL (14.0-18.0); Mean Corpuscular Hemoglobin 32.7 pg (25-34); Mean Platelet Volume 10.2 fL (7.4-10.4); Platelet Count 243 K/uL (130-400); RDW Coefficient of Variation 19.5 % (11.5-14.5); RDW Standard Deviation 70.5 fL (36.4-46.3); Red Blood Count 1.47 M/uL (4.7-6.1); White Blood Count 16.24 K/uL (4.8-10.8)
[2020-05-22 02:27] LABS: Albumin Level 1.9 gm/dl (3.4-5.0); BUN Creatinine Ratio 30.9 (10-20); Calcium 8.1 mg/dl (8.5-10.1); Creatinine Clr Calc Pharmacy 51.9 ml/min; Est GFR (African American) 62.7; Est GFR (Non-African American) 54.1; Potassium 5.2 mmol/L (3.5-5.1)
[2020-05-22] MEDS ORDERED: PANTOprazole 40 MG in DEXTROSE 5% 100 ML IV SCH ×2 (02:28→07:15)
[2020-05-22 02:29] LABS: Anisocytosis Present; Basophils # (auto) 0.06 K/uL (0-0.2); Basophils % (auto) 0.4 %; Eosinophils # (auto) 0.06 K/uL (0-0.5); Eosinophils % (auto) 0.4 %; Immature Granulocytes # (auto) 0.04 K/uL (0.00-0.02); Immature Granulocytes % (auto) 0.2 %; Lymphocytes # (auto) 1.84 K/uL (1.2-3.4); Lymphocytes % (auto) 11.3 %; Monocytes # (auto) 1.03 K/uL (0.11-0.59); Monocytes % (auto) 6.3 %; Neutrophils # (auto) 13.21 K/uL (1.4-6.5); Neutrophils % (auto) 81.4 %; Polychromasia 1+
[2020-05-22 02:30] LABS: Albumin Globulin Ratio 0.7 (0.9-2); Bilirubin,Total 0.5 mg/dl (0.2-1); Globulin 2.7 gm/dl (2.5-4.0); Total Protein 4.6 gm/dl (6.4-8.2)
[2020-05-22] MEDS ORDERED: SODIUM CHLORIDE 0.9% 250 ML IV PRN ×3 (02:35→12:15)
--- NOTE | 2020-05-22 04:27 | Emergency Department Note ---
ED Visit Note NAME: VALE [id number] ROXY AGE: 79 SEX: M ARRIVES VIA: Ambulance INFORMANT: Patient, nursing records, corrections officers ED PROVIDER(S): Rhoda Lucas MD CHIEF COMPLAINT: GI bleed PLAN: Disposition: Admission Condition: Critical Referral: Hospitalist, Dr. Clarke MEDICAL DECISION MAKING: This patient was evaluated and appeared to be in no significant distress. Patient is noted to be mildly hypotensive and tachycardic. He is pale. Given his past medical history and complaints of coffee-ground emesis and dark stools, GI bleed is suspected. He was typed and crossed for 3 units PRBCs. Stool guaiac is positive. Patient was consented for blood transfusion. IV Protonix was initiated. The patient has not had any further vomiting. Transfusion order was given, currently awaiting blood products. Findings were explained to the patient and the corrections officers at the bedside. He will be evaluated by Dr. Clarke for admission and further management. Covid swab is negative. IMPRESSION: Acute blood loss anemia, lower GI bleed, cirrhosis of the liver Triage Nursing notes reviewed. Differential diagnosis: Diverticulosis, AVM, coagulopathy, colitis, inflammatory bowel disease, malig kemal, Sofia-Davis tear, esophagitis, peptic ulcer disease, variceal bleed, gastritis, epistaxis, fissure, hemorrhoids, as well as other pathologies. ER treatment provided: IV Protonix, PRBC transfusion Diagnostics interpreted by me: Cardiac Monitoring: An order for cardiac monitoring was placed and the patient is noted to be in an atrial fibrillation at 102 bpm. Laboratory studies: WBC 16.24, hemoglobin of 4.8/15, INR 1.2, potassium of 5.2, BUN of 39, creatinine 1.27, Covid negative Consultation(s): Hospitalist, Dr. Clarke HPI: This patient is a 79-year-old male who presents to the emergency department with complaints of weakness and GI bleed. Patient was admitted 2 weeks ago for similar issues and did receive a blood transfusion. He has a history of ci rrhosis of the liver. Patient states he has been having some coffee-ground emesis for the last 2 days and bloody stools for 3 to 4 days. He does take Protonix twice daily. Patient denies any known Covid exposure however he is an inmate where there is known Covid. Patient does have a history of being anticoagulated although he is not currently. He denies any chest pain, shortness of breath, cough or fever. He denies any urinary symptoms. ROS: See above HPI for pertinent positives & negatives. A total of 10 systems reviewed and were otherwise negative. PAST MEDICAL HISTORY:PUD: Cirrhosis, UTI, anemia, atrial fib, portal hypertension, thrombocytopenia, cholelithiasis, COPD, asthma, altered mental status, pseudogout, acute kidney injury, hyperammonemia, osteoarthritis, metabolic encephalopathy, DVT, GERD, type 2 diabetes, BPH, prostate cancer, tobacco abuse PAST SURGICAL HISTORY:N/A FAMILY HISTORY:N/A SOCIAL HISTORY:Inmate, previous smoker and heavy alcohol drinker. HOME MEDICATIONS:Please see below, med list reviewed. ALLERGIES:Doxazosin, prazosin PHYSICAL EXAMINATION: Vital signs reviewed. General: Chronically ill-appearing 79-year-old male, in no significant distress HEENT: No scleral icterus, PERRLA, neck supple. Dry mucous membranes Cardiovascular: Tachycardic but regular, no extra sounds Pulmonary: Clear to auscultation bilaterally, normal work of breathing. Abdomen: Soft, nontender, nondistended, positive bowel sounds. Musculoskeletal: Atraumatic, no peripheral edema. Neurologic: Patient awake alert and oriented x 3 Rectal: Normal external mucosa, melanotic, guaiac positive stool on the skin, no bright red blood. Skin: Warm, dry, no rash ED COURSE: Patient was informed of the findings and plan for admission. He was consented for blood transfusion given the risks and benefits. Patient's case was discussed with Dr. Clarke of the hospitalist service who will evaluate the patient for admission and further management. Patient is aware of the plan and agrees. I have personally spent greater than 45 minutes of critical care time in the direct management of this patient. This includes bedside care, interpretation of diagnostic studies, and testing, discussion with consultants, patient, and family members, and other required patient management activities. This 45 minutes is in excess of all separately billable procedures. Rhoda Lucas MD .
--- NOTE | 2020-05-22 04:30 | Critical Care Consultation ---
Date of Consultation May 22, 2020 Assessment & Plan (1) Admitted to intensive care unit: Reason Critically Ill: 79-year-old male with acute upper GI bleed with recent history of duodenal ulcer with concerns for hemodynamic instability requiring close monitoring. NEURO - * CAM ICU: NEGATIVE CARDIAC/VASCULAR - * A. fib: * Currently anticoagulated on Coumadin. * Hold for now pending EGD. * Borderline hypotension. Aggressive blood product resuscitation as needed. * Monitor on telemetry. RESPIRATORY - * No concerns at this time. GI/NUTRITION - * Presumed UGIB: * N.p.o. status. * Protonix drip * EGD planned. * Blood products as needed. RENAL/LYTES - * No significant electrolyte derangements. - * King in place - Strict I&Os. ENDO - * History of diabetes * BSGs per unit protocol. ISS --> gtt per unit policy. HEME - * Profound anemia: * In the setting of UGIB * Replace with 2 units initially. * Trend H&H. * Replace as needed. * INR 1.2. Hold on further correction at this time. ID - * No history of esophageal varices. * Hold on prophylactic antibiotic coverage. LINES/IV ACCESS - * PIVs x3 DVT PROPHYLAXIS - * Hold on anticoagulation secondary to UGIB * SCDs Thank you for allowing us to participate in the care of this patient. Please refer to my attending physician's documentation for any further recommendations. (2) Upper GI hemorrhage: (3) Peptic ulcer disease: (4) Cirrhosis: Supervising Physician Co-Signing Physician Notes I have personally evaluated and examined this patient. I agree with assessment and plan of Eduardo Coleman PA-C. Patient was going to do endoscopy during my evaluation. Continue current care History of Present Illness History of Present Illness Patient is a 79-year-old male with a extensive past medical history including thrombocytopenia, prostate cancer, A. fib, diabetes, diastolic heart failure, chronic anticoagulation on Coumadin, COPD, portal hypertension, cirrhosis, recent history of duodenal ulcer. Patient recently admitted to this facility with a GI bleed at the end of April. He underwent EGD with findings consistent with gastric ulcer. Patient was eventually discharged back to assisted facility. He was noted to have increasing black/tarry stools today as well as some bright red blood. He was noted to have some mild hypotension as well. In the emergency department, the patient received Protonix and saline boluses. GI was reached by phone. They plan for EGD later today. He was noted to be profoundly anemic and was provided 2 units PRBC. Upon arrival in the ICU, the patient is awake, alert, and oriented. He is hard of hearing and does appear to be somewhat pleasantly demented. He denies any complaints of pain at this time. Allergies Allergy/AdvReac Type Severity Reaction Status Date / Time doxazosin [From Cardura] Allergy Unknown Unknown Unverified 05/22/20 02:12 prazosin [From Minipress] Allergy Unknown Unknown Unverified 05/22/20 02:12 Home Medications Medication Instructions Recorded Confirmed Type cyanocobalamin (vitamin B-12) 1,000 mcg PO DAILY 06/12/18 05/22/20 History [Vitamin B-12] folic acid 1 mg PO QAM 06/12/18 05/22/20 History lactulose 30 ml PO BID 06/12/18 05/22/20 History metformin 500 mg PO HS 06/12/18 05/22/20 History nitroglycerin [Nitrostat] 0.4 mg SUBLINGUAL UD PRN 06/12/18 05/22/20 History diltiazem HCl 180 mg PO QAM 12/06/18 05/22/20 History tamsulosin 0.4 mg PO DAILY 02/06/19 05/22/20 History levalbuterol tartrate 45 2 puffs INH QID PRN 04/08/19 05/22/20 History mcg/actuation aerosol inhaler paroxetine HCl 20 mg tablet 20 mg PO DAILY 05/04/20 05/22/20 History Lupron Depot (3 month) 22.5 mg IM UD 05/08/20 05/22/20 History Xifaxan 550 mg PO BID 05/08/20 05/22/20 History acetaminophen-codeine 2 tab PO TID PRN 05/08/20 05/22/20 History capsaicin 1 applic TOPICAL QID 05/08/20 05/22/20 History digoxin 250 mcg PO DAILY 05/08/20 05/22/20 History fluticasone propion-salmeterol 1 inh INHALATION BID 05/08/20 05/22/20 History [Wixela Inhub] vitamin A and D 1 applic TOPICAL QID 05/08/20 05/22/20 History ferrous sulfate 325 mg PO QDB 30 Days #30 tab 05/11/20 05/22/20 Rx pantoprazole 40 mg PO BID 56 Days #112 tab 05/11/20 05/22/20 Rx sucralfate [Carafate] 1 g PO TID 56 Days #168 tab 05/11/20 05/22/20 Rx aluminum hydrox-magnesium carb 1 tab PO QID PRN 05/22/20 05/22/20 History [Acid Gone Antacid E.Strength] cyanocobalamin (vitamin B-12) 500 mcg PO DAILY 05/22/20 05/22/20 History dicyclomine 20 mg PO BID 05/22/20 05/22/20 History promethazine 25 mg PO TID PRN 05/22/20 05/22/20 History Patient History Medical History Allergic rhinitis Anemia Anxiety Atrial fibrillation Bone lesion BPH (benign prostatic hyperplasia) Cataract Bilateral cataracts - had surgery on both eyes; Chronic back pain Chronic pulmonary embolism Cirrhosis Depressive disorder Diabetes mellitus, type 2 Diastolic dysfunction DVT (deep venous thrombosis) GERD (gastroesophageal reflux disease) H/O: CVA (cerebrovascular accident) HTN (hypertension) Incarcerated umbilical hernia Osteoarthritis Peptic ulcer disease Presence of IVC filter Prostate cancer Sciatica Streptococcal bacteremia Thrombocytopenia Tobacco abuse Tremor Surgical History H/O right knee surgery History of appendectomy History of cataract surgery left. 12/2018. 2mg versed. History of cataract surgery Family History Mother , in her 80s Myocardial infarction Stroke Father , in her 60s Myocardial infarction Sister No problems noted. Sister No problems noted. Sister No problems noted. Son No problems noted. Son No problems noted. Son No problems noted. Son No problems noted. Son No problems noted. Daughter No problems noted. Daughter No problems noted. Daughter No problems noted. Daughter No problems noted. Daughter No problems noted. 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 All else were negative. Physical Exam Physical Exam: VITAL SIGNS - Vital signs and nursing notes were reviewed. GENERAL - 79-year-old male appearing his stated age who is in no acute distress. Communicates well with provider and answers questions appropriately. SKIN - Without rashes. HEAD - NC/AT. EYES - PERRL with EOMI bilaterally. Sclera anicteric. EARS - No deformities of external structures noted on gross examination bilaterally. NOSE - Midline and without cyanosis. No epistaxis or purulent drainage noted. MOUTH/OROPHARYNX - Without perioral cyanosis. Buccal mucosa pink and moist and without leukoplakia. NECK - Neck with FROM. Supple to palpation. No nuchal rigidity. LUNGS - Chest wall symmetric without accessory muscle use, intercostals retractions, or central cyanosis. Normal vesicular breath sounds CTA B/L. No wheezes, rales, or rhonchi appreciated. CARDIAC - RRR with S1/S2. No murmur, rubs, or gallops appreciated. ABDOMEN - Abdominal contour flat without pulsations or visible masses. BS normoactive all four quadrants. No tenderness, palpable masses, hepatosplenomegaly, or ascites noted. EXTREMITIES - No clubbing or peripheral cyanosis. No pretibial edema present. +3/5 radial and dorsalis pedis pulses palpated throughout. +5/5 strength noted in UE/LE bilaterally. NEUROLOGIC - Cranial nerves II through XII grossly intact. Sensory intact to light touch throughout. PSYCH - A&Ox3 and cooperates fully with examiner. Pt is very pleasant and interacts well with examiner. Results & Data Results & Data ([facility] [place]) Vital Signs (Past 12 Hours) Vital Signs Temp Pulse Pulse Resp BP BP Pulse Ox 05/22/20 04:01 37.0 C 105 H 16 99/68 L 97 05/22/20 03:46 37.1 C 100 H 16 99/66 L 94 05/22/20 03:41 37.1 C 104 H 16 91/63 L 94 05/22/20 03:34 37.1 C 98 H 16 96/59 L 94 05/22/20 03:28 37.1 C 101 H 16 99/59 L 98 05/22/20 02:50 102 H 16 85/59 L 97 05/22/20 01:31 98 05/22/20 01:26 36.5 C 103 H 18 100/68 98 Coding Level of Care Code 05691 Inpt Consult Level 5 Diagnoses Admitted to intensive care unit Z78.9 Upper GI hemorrhage K92.2 Peptic ulcer disease K27.9 Cirrhosis K70.30 Ascites presence: without ascites Hepatic cirrhosis type: alcoholic cirrhosis Time Spent (min) 35 (1) Cirrhosis Ascites presence: without ascites Hepatic cirrhosis type: alcoholic cirrhosis Qualified Code(s): K70.30 - Alcoholic cirrhosis of liver without ascites
[2020-05-22] MEDS ORDERED: ICU PROTOCOL FOR HYPERGLYCEMIA PRN (05:00)
[2020-05-22] MEDS ORDERED: NITROGLYCERIN SL 0.4 MG/TAB TAB SL PRN (05:00)
[2020-05-22] MEDS ORDERED: SODIUM CHLORIDE 0.9% 1000ML 1,000 ML IV SCH (05:00)
[2020-05-22] MEDS ORDERED: METOPROLOL TARTRATE 1 MG/ML VIAL IV PRN (05:00)
[2020-05-22] MEDS ORDERED: LEVALBUTEROL TARTRATE 15 GM HFA.AER.AD INH PRN (05:00)
[2020-05-22] MEDS ORDERED: GLUCOSE 40% GEL 15 GM TUBE PO PRN (05:30)
[2020-05-22] MEDS ORDERED: DEXTROSE 50% 50 ML SYRINGE IV PRN (05:30)
[2020-05-22] MEDS ORDERED: CARBOHYDRATES FOR HYPOGLYCEMIA PO PRN (05:30)
[2020-05-22] MEDS ORDERED: GLUCOSE 10 TABS/TUBE PO PRN (05:30)
[2020-05-22] MEDS ORDERED: GLUCAGON FOR INJ 1 MG VIAL SQ PRN (05:30)
[2020-05-22] MEDS ORDERED: INSULIN ASPART 100 UNITS/ML 3 ML PEN SC SCH (06:00)
--- NOTE | 2020-05-22 06:51 | History and Physical Report ---
DATE OF ADMISSION: 05/22/2020 CHIEF COMPLAINT: GI bleed. HISTORY OF PRESENT ILLNESS: This is a 79-year-old male with past medical history significant for history of cirrhosis, history of UTIs with ESBL, history of atrial fibrillation, currently Coumadin on hold, history of prostate cancer, history of diastolic dysfunction, history of type 2 diabetes, BPH, GERD, history of gallstones. He was supposed to get elective cholecystectomy, but recently, he got admitted on 05/08/2020 with symptomatic anemia and GI bleed and supratherapeutic INR. Received 3 units of PRBCs and vitamin K and EGDs done on 05/09/2020 showed no varices. No portal gastropathy. A large cratered clean-based ulcer in the posterior wall of the duodenal bulb. He was discharged on PPI twice daily for 8 weeks and sucralfate and to do a repeat EGD in 8 weeks, and he was discharged back to group home. His hb 7.8 on discharge. He comes today because of having black stools for the last 1 or 2 days and also he had some blood in the vomitus and he has coffee-ground emesis tonight and his hemoglobin was found to be 4.8. Blood pressure is somewhat on the lower side. Mild tachycardia. The patient complains of abdominal pain, moderate in severity. The patient is also having ongoing abdominal pain from his gallbladder disease and supposed to have elective cholecystectomy.The patient denies any cough, no chest pain. No headache, no blurred vision, no earache, no runny nose, no sore throat. Appetite is not that great. Normal bladder movements. Afebrile. ALLERGIES: DOXAZOSIN, PRAZOSIN. PAST MEDICAL HISTORY: As mentioned above. PAST SURGICAL HISTORY: History of presence of IVC filter, bilateral cataract surgeries, history of appendectomy, history of right knee surgery. FAMILY HISTORY: Significant for mother had NV and stroke; father had NV. SOCIAL HISTORY: Currently living in group home. Everyday smoker as per records. Currently no alcohol use, no drug use, however, last admission he said he drank alcohol many several years ago. MEDICATIONS: The patient is on Tylenol plus codeine 2 tablets p.o. t.i.d. p.r.n.,antacid 1 tablet p.o. q.i.d. p.r.n., capsaicin one application topical q.i.d., vitamin B12 1000 mcg p.o. daily, dicyclomine 20 mg p.o. b.i.d., digoxin 250 mcg p.o. daily, diltiazem 180 mg p.o. daily, ferrous sulfate 325 mg p.o. daily, fluticasone and salmeterol one inhalation b.i.d., folic acid 1 mg p.o. daily, lactulose 30 mL p.o. q.i.d., levalbuterol 2 puffs inhalation q.i.d. p.r.n., Lupron shots as directed, metformin 500 mg p.o. at bedtime, Nitrostat 0.4 mg sublingual p.r.n., Protonix 40 mg p.o. b.i.d., paroxetine 20 mg p.o. daily, promethazine 25 mg p.o. t.i.d. p.r.n., sucralfate 1 gram p.o. t.i.d., Flomax 0.4 mg p.o. daily, vitamin A and D topical q.i.d., Xifaxan 550 mg p.o. b.i.d. REVIEW OF SYSTEMS: As per HPI. Rest of the review of systems negative. PHYSICAL EXAMINATION: GENERAL: The patient is of moderate build, not in acute distress. VITAL SIGNS: Temperature 37, pulse 105, respiratory rate 16, blood pressure 99/68, oxygen 97% on room air. HEENT: Pupils equal, round, and reactive to light. Palor present, no icterus. Oral mucosa dry. NECK: No JVD, no neck masses. CARDIOVASCULAR: S1, S2 heard, regular rate and rhythm, no murmur, no gallop. RESPIRATORY SYSTEM: Normal AP diameter. No accessory muscle use. No wheezing, no crackles. ABDOMEN: Soft, bowel sounds present. Mild abdominal diffuse discomfort. No guarding, no rigidity, no distention. CENTRAL NERVOUS SYSTEM: Cranial nerves II-XII grossly intact. Nonfocal. EXTREMITIES: No edema, no erythema. LABORATORY DATA: WBC 16, hemoglobin 4.8, hematocrit 15, platelets 243. PT 13, INR 1.2, APTT 23.1. Sodium 141, potassium 5.2, chloride 111, CO2 of 27, BUN 39, creatinine 1.2, serum glucose 147, calcium 8.1, total bilirubin 0.5, AST 15, ALT 16, alkaline phosphatase 73, lipase 52. SARS-CoV-2 RNA negative. ASSESSMENT AND PLAN: This is a 79-year-old male who presents with gastrointestinal bleed. 1. Gastrointestinal bleed and profound anemia, hematemesis, and melena: Last admission also presented with gastrointestinal bleed and EGD showed posterior duodenal bulb ulcer. No varices seen. History of cirrhosis. Follow H and H q. 6 hours. Protonix drip, n.p.o., gentle fluids. GI consulted and planned for EGD soon. Closely monitor in the ICU. 2. History of liver cirrhosis: Currently continue lactulose and Xifaxan. 3. History of gastric duodenal ulcer: Continue on PPI drip. Hold home p.o. Protonix and sucralfate. 4. History of atrial fibrillation: Rate is under control. Holding digoxin and verapamil. Placing on IV Lopressor p.r.n. Coumadin held last admission because of GI bleed. Follow up digoxin level.Monitor heart rates. 5. History of prostate cancer: On Lupron shots. 6. Type 2 diabetes: Hold metformin, placed on insulin sliding scale. Last admission, HbA1c was 5.3. 7. Abdominal pain: Could be from peptic ulcer disease, also from his cholelithiasis. There was a plan for elective procedure, but it was held because of GI bleed last admission. 8. History of recurrent urinary tract infections: We will monitor. Last admission received Invanz for ESBL UTI. 9. Deep vein thrombosis prophylaxis: Sequential compression devices. DISPOSITION: Closely monitor in the ICU. Level 1 full code. MTDD
--- NOTE | 2020-05-22 08:03 | Hospitalist Progress Note ---
Date of Service May 22, 2020 Assessment & Plan (1) Upper GI hemorrhage: Patient seen by my partner this am, will follow. Labs Checked ASSESSMENT AND PLAN: This is a 79-year-old male who presents with gastrointestinal bleed. 1. Gastrointestinal bleed and profound anemia, hematemesis, and melena: Last admission also presented with gastrointestinal bleed and EGD showed a posterior duodenal bulb ulcer. No varices seen. History of cirrhosis. Follow H and H q. 6 hours. Protonix drip, n.p.o., gentle fluids. GI consulted and planned for EGD soon. Closely monitor in the ICU. 2. History of liver cirrhosis: Currently continue lactulose and Xifaxan. 3. History of gastric duodenal ulcer: Continue on PPI drip. Hold home p.o. Protonix and sucralfate. 4. History of atrial fibrillation: Rate is under control. Holding digoxin and verapamil. Placing on IV Lopressor p.r.n. Coumadin held last admission because of GI bleed. Follow up digoxin level.Monitor heart rates. 5. History of prostate cancer: On Lupron shots. 6. Type 2 diabetes: Hold metformin, placed on insulin sliding scale. Last admission, HbA1c was 5.3. 7. Abdominal pain: Could be from peptic ulcer disease, also from his cholelithiasis. There was a plan for elective procedure, but it was held because of GI bleed last admission. 8. History of recurrent urinary tract infections: We will monitor. Last admission received Invanz for ESBL UTI. 9. Deep vein thrombosis prophylaxis: Sequential compression devices. DISPOSITION: Closely monitor in the ICU. Level 1 full code. ROS-Offered no history Physical Exam Gen-Sleeping, NAD, Afebrile Head-NCAT, EOMI, PERRLA, Anicteric Sclera, No Posterior Pharyngeal Erythema Neck-Supple, No JVD, No Thyromegaly, No Masses, No LAD, No Bruits Lungs-Clear to Auscultation Bilaterally, No Rales, No Rhonchi, No Wheezing, No Crepitus Chest-No S4, +S1, +S2, No S3, No Murmurs, No Rubs, No Gallops, No Ectopy Abdomen-Soft, Bowel Sounds Present, Non Tender, Non Distended, No Hepatomegaly, No Splenomegaly, No Palpable Masses, No Rebound, No Rigidity, No Guarding Musculoskeletal-Full Range of Motion Bilaterally, No CVAT Extremities-No Cyanosis, No Clubbing, No Edema Nuero-Cranial Nerves II-XII grossly intact, Motor WNL, DTRs WNL, Strength WNL, Non Focal Psych-Somnolent Admission and Anticipated Discharge Date Admission Date: May 22, 2020 Results & Data Results & Data ([facility]) Vital Signs (Past 12 Hours) Vital Signs Temp Pulse Pulse Pulse Resp BP BP 05/22/20 07:48 37.1 C 87 19 112/58 L 05/22/20 07:00 99 H 17 113/61 05/22/20 06:30 36.9 C 94 H 16 117/63 05/22/20 06:15 37.4 C 92 H 16 114/55 L 05/22/20 05:58 37.1 C 98 H 16 102/64 05/22/20 05:45 85 18 102/68 05/22/20 05:11 102 H 17 95/62 L 05/22/20 04:46 93 H 20 96/63 L 05/22/20 04:22 37.1 C 100 H 20 112/61 05/22/20 04:10 37.0 C 103 H 16 110/72 05/22/20 04:01 37.0 C 105 H 16 99/68 L 05/22/20 03:46 37.1 C 100 H 16 99/66 L 05/22/20 03:41 37.1 C 104 H 16 91/63 L 05/22/20 03:34 37.1 C 98 H 16 96/59 L 05/22/20 03:28 37.1 C 101 H 16 99/59 L 05/22/20 02:50 102 H 16 85/59 L 05/22/20 01:31 05/22/20 01:26 36.5 C 103 H 18 100/68 Pulse Ox 05/22/20 07:48 100 05/22/20 07:00 98 05/22/20 06:30 98 05/22/20 06:15 100 05/22/20 05:58 99 05/22/20 05:45 95 05/22/20 05:11 96 05/22/20 04:46 94 05/22/20 04:22 97 05/22/20 04:10 98 05/22/20 04:01 97 05/22/20 03:46 94 05/22/20 03:41 94 05/22/20 03:34 94 05/22/20 03:28 98 05/22/20 02:50 97 05/22/20 01:31 98 05/22/20 01:26 98
--- NOTE | 2020-05-22 08:59 | Gastrointestinal Consultation ---
Date of Consultation May 22, 2020 Assessment & Plan (1) Cirrhosis: (2) Peptic ulcer disease: (3) Melena: (4) Acute blood loss anemia: Continue protonix gtt at 8 mg/hour Proceed with emergent EGD (Dr. Herrera and myself provided emergent consent due to acute blood loss anemia.) Further recommendations to follow above noted testing. (5) Hepatic encephalopathy: Consider CT head for further evaluation Check Ammonia level now Add Xifaxan 550 mg by mouth twice daily Increase Lactulose to 30 ml PO TID History of Present Illness Reason for Consultation: Melena, Acute blood loss anemia Attending Physician: Rafael Herrera, DO History of Present Illness 79 yo CM who presented via EMS from [facility] secondary to reported melena and coffee ground emesis. He has a history of cirrhosis with reported hepatic encephalopathy, but recent EGD on 05/09/20 for GI bleed by Dr. Mcdonald showed no evidence of esophageal varices, gastric varices or portal hypertensive gastropathy. Prior EGD by Dr. Mcdonald did show a large duodenal ulcer in the posterior bulb, which was clean based and required no endoscopic therapy. Biopsies of the stomach and duodenum did not show any H. pylori, but did show many fungal organisms. He was discharged on twice daily PPI therapy and during his last admission his coumadin was discontinued, as he had been taking this for his history of A-fib. At the time he presented to the ER, he was noted to have an H/H of 4.8 and 15. He was slightly tachycardic, and was started on a Protonix gtt and transfused 3 u of PRBC. He was admitted to the ICU. At the time I saw the patient, he was confused. He could not answer questions a ppropriately. He was awake, but asked repeatedly when we would be doing his procedure, after I tried to discuss upper endoscopy and obtain consent. Nursing reports he has not received his lactulose therapy in the past few days due to his aforementioned symptoms. He states that he is not having any abdominal pain, but is not reliable at present. Allergies Allergy/AdvReac Type Severity Reaction Status Date / Time doxazosin [From Cardura] Allergy Unknown Unknown Unverified 05/22/20 02:12 prazosin [From Minipress] Allergy Unknown Unknown Unverified 05/22/20 02:12 Home Medications Medication Instructions Recorded Confirmed Type cyanocobalamin (vitamin B-12) 1,000 mcg PO DAILY 06/12/18 05/22/20 History [Vitamin B-12] folic acid 1 mg PO QAM 06/12/18 05/22/20 History lactulose 30 ml PO BID 06/12/18 05/22/20 History metformin 500 mg PO HS 06/12/18 05/22/20 History nitroglycerin [Nitrostat] 0.4 mg SUBLINGUAL UD PRN 06/12/18 05/22/20 History diltiazem HCl 180 mg PO QAM 12/06/18 05/22/20 History tamsulosin 0.4 mg PO DAILY 02/06/19 05/22/20 History levalbuterol tartrate 45 2 puffs INH QID PRN 04/08/19 05/22/20 History mcg/actuation aerosol inhaler paroxetine HCl 20 mg tablet 20 mg PO DAILY 05/04/20 05/22/20 History Lupron Depot (3 month) 22.5 mg IM UD 05/08/20 05/22/20 History Xifaxan 550 mg PO BID 05/08/20 05/22/20 History acetaminophen-codeine 2 tab PO TID PRN 05/08/20 05/22/20 History capsaicin 1 applic TOPICAL QID 05/08/20 05/22/20 History digoxin 250 mcg PO DAILY 05/08/20 05/22/20 History fluticasone propion-salmeterol 1 inh INHALATION BID 05/08/20 05/22/20 History [Wixela Inhub] vitamin A and D 1 applic TOPICAL QID 05/08/20 05/22/20 History ferrous sulfate 325 mg PO QDB 30 Days #30 tab 05/11/20 05/22/20 Rx pantoprazole 40 mg PO BID 56 Days #112 tab 05/11/20 05/22/20 Rx sucralfate [Carafate] 1 g PO TID 56 Days #168 tab 05/11/20 05/22/20 Rx aluminum hydrox-magnesium carb 1 tab PO QID PRN 05/22/20 05/22/20 History [Acid Gone Antacid E.Strength] cyanocobalamin (vitamin B-12) 500 mcg PO DAILY 05/22/20 05/22/20 History dicyclomine 20 mg PO BID 05/22/20 05/22/20 History promethazine 25 mg PO TID PRN 05/22/20 05/22/20 History Patient History Medical History Allergic rhinitis Anemia Anxiety Atrial fibrillation Bone lesion BPH (benign prostatic hyperplasia) Cataract Bilateral cataracts - had surgery on both eyes; Chronic back pain Chronic pulmonary embolism Cirrhosis Depressive disorder Diabetes mellitus, type 2 Diastolic dysfunction DVT (deep venous thrombosis) GERD (gastroesophageal reflux disease) H/O: CVA (cerebrovascular accident) HTN (hypertension) Incarcerated umbilical hernia Osteoarthritis Peptic ulcer disease Presence of IVC filter Prostate cancer Sciatica Streptococcal bacteremia Thrombocytopenia Tobacco abuse Tremor Surgical History H/O right knee surgery History of appendectomy History of cataract surgery left. 12/2018. 2mg versed. History of cataract surgery Family History Mother , in her 80s Myocardial infarction Stroke Father , in her 60s Myocardial infarction Sister No problems noted. Sister No problems noted. Sister No problems noted. Son No problems noted. Son No problems noted. Son No problems noted. Son No problems noted. Son No problems noted. Daughter No problems noted. Daughter No problems noted. Daughter No problems noted. Daughter No problems noted. Daughter No problems noted. 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 Beliefs That Will Affect Care: None marital status: Single Current Living Situation: Other Current Living Situation Comment: [facility] current occupational status: unemployed Other Information That Helps Us Care for You: No Feels Safe at Home: Yes Safety Concerns: Feels Safe At This Time caffeine: Yes (2 cups/day) during the past year weight has: remained stable Assistive Devices: None Review of Systems Review of Systems: Unobtainable due to cognitive status Physical Exam Constitutional: well developed and + ill appearing; no acute distress Eyes: + anicteric sclerae Respiratory: normal respiratory effort; no respiratory distress and no labored breathing Cardiovascular: RRR, no murmur, no edema Gastrointestinal (Abdomen): Inspection/Auscultation: normal bowel sounds; abdomen not distended Percussion/Palpation: abdomen soft; abdomen nontender, no guarding, abdomen not rigid and no hepatomegaly Skin: + pallor; no rashes Psychiatric: Orientation: + not alert and + not oriented x 3 Results & Data ([facility]) Vital Signs (Past 12 Hours) Vital Signs Temp Pulse Pulse Pulse Resp BP BP 05/22/20 08:20 37.2 C 93 H 12 103/56 L 05/22/20 08:19 93 H 9 L 119/60 05/22/20 08:05 82 16 117/62 05/22/20 07:48 37.1 C 87 19 112/58 L 05/22/20 07:00 99 H 17 113/61 05/22/20 06:30 36.9 C 94 H 16 117/63 05/22/20 06:15 37.4 C 92 H 16 114/55 L 05/22/20 05:58 37.1 C 98 H 16 102/64 05/22/20 05:45 85 18 102/68 05/22/20 05:11 102 H 17 95/62 L 05/22/20 04:46 93 H 20 96/63 L 05/22/20 04:22 37.1 C 100 H 20 112/61 05/22/20 04:10 37.0 C 103 H 16 110/72 05/22/20 04:01 37.0 C 105 H 16 99/68 L 05/22/20 03:46 37.1 C 100 H 16 99/66 L 05/22/20 03:41 37.1 C 104 H 16 91/63 L 05/22/20 03:34 37.1 C 98 H 16 96/59 L 05/22/20 03:28 37.1 C 101 H 16 99/59 L 05/22/20 02:50 102 H 16 85/59 L 05/22/20 01:31 05/22/20 01:26 36.5 C 103 H 18 100/68 Pulse Ox 05/22/20 08:20 100 05/22/20 08:19 98 05/22/20 08:05 99 05/22/20 07:48 100 05/22/20 07:00 98 05/22/20 06:30 98 05/22/20 06:15 100 05/22/20 05:58 99 05/22/20 05:45 95 05/22/20 05:11 96 05/22/20 04:46 94 05/22/20 04:22 97 05/22/20 04:10 98 05/22/20 04:01 97 05/22/20 03:46 94 05/22/20 03:41 94 05/22/20 03:34 94 05/22/20 03:28 98 05/22/20 02:50 97 05/22/20 01:31 98 05/22/20 01:26 98 Laboratory Results 05/22/20 01:47 05/22/20 01:47 INR 1.2 (0.9-1.1) H 05/22/20 01:47 PG Care Time/CCT Total # of Minutes Spent Total Time Spent with Patient: Total time spent is greater than 50% in coordination of care (as documented) at patient's floor/unit and/or counseling patient: Coding Level of Care Code 90836 Initial Inpt Care Lvl 3 Diagnoses Cirrhosis K70.30 Ascites presence: without ascites Hepatic cirrhosis type: alcoholic cirrhosis Peptic ulcer disease K27.9 Melena K92.1 Acute blood loss anemia D62 Hepatic encephalopathy K72.90 (1) Cirrhosis Ascites presence: without ascites Hepatic cirrhosis type: alcoholic cirrhosis Qualified Code(s): K70.30 - Alcoholic cirrhosis of liver without ascites
[2020-05-22] MEDS ORDERED: FLUTICASONE/VILANTEROL 100/25MCG 14 PUFFS/INHALER INH SCH (09:00)
[2020-05-22] MEDS ORDERED: rifAXIMin 550 MG TABLET PO SCH ×2 (09:00→09:15)
[2020-05-22] MEDS ORDERED: TAMSULOSIN HCL 0.4 MG CAP PO SCH (09:00)
[2020-05-22] MEDS ORDERED: LACTULOSE SYRUP 20 GM/30 ML UDC PO SCH (09:00)
--- NOTE | 2020-05-22 09:51 | Anesthesiology Consultation ---
Date of Service May 22, 2020 Assessment & Plan (1) Encounter for pre-operative examination: Chart Review Chart Review: Acceptable Risk for Surgery (Urgent / Necessary procedure - rechecking Hb and K+ level and ammonia due to increasing confusion) History Surgery Operation Date: 05/22/20 09:30 Proposed Procedures p Esophagoscopy - Ty Mo Case, DO Height/Weight Height: 5 ft 11 in Weight: 84.7 kg Allergies Allergy/AdvReac Type Severity Reaction Status Date / Time doxazosin [From Cardura] Allergy Unknown Unknown Unverified 05/22/20 02:12 prazosin [From Minipress] Allergy Unknown Unknown Unverified 05/22/20 02:12 Medications Home Medications Medication Instructions Recorded Confirmed Last Taken cyanocobalamin (vitamin B-12) 1,000 mcg PO DAILY 06/12/18 05/22/20 05/07/20 [Vitamin B-12] folic acid 1 mg PO QAM 06/12/18 05/22/20 05/07/20 lactulose 30 ml PO BID 06/12/18 05/22/20 05/07/20 metformin 500 mg PO HS 06/12/18 05/22/20 05/07/20 nitroglycerin [Nitrostat] 0.4 mg SUBLINGUAL UD PRN 06/12/18 05/22/20 Unknown diltiazem HCl 180 mg PO QAM 12/06/18 05/22/20 05/07/20 tamsulosin 0.4 mg PO DAILY 02/06/19 05/22/20 05/07/20 levalbuterol tartrate 45 2 puffs INH QID PRN 04/08/19 05/22/20 Unknown mcg/actuation aerosol inhaler paroxetine HCl 20 mg tablet 20 mg PO DAILY 05/04/20 05/22/20 05/07/20 Lupron Depot (3 month) 22.5 mg IM UD 05/08/20 05/22/20 Unknown Xifaxan 550 mg PO BID 05/08/20 05/22/20 05/07/20 acetaminophen-codeine 2 tab PO TID PRN 05/08/20 05/22/20 05/07/20 capsaicin 1 applic TOPICAL QID 05/08/20 05/22/20 Unknown digoxin 250 mcg PO DAILY 05/08/20 05/22/20 05/07/20 fluticasone propion-salmeterol 1 inh INHALATION BID 05/08/20 05/22/20 Unknown [Wixela Inhub] vitamin A and D 1 applic TOPICAL QID 05/08/20 05/22/20 Unknown ferrous sulfate 325 mg PO QDB 30 Days #30 tab 05/11/20 05/22/20 Unknown pantoprazole 40 mg PO BID 56 Days #112 tab 05/11/20 05/22/20 Unknown sucralfate [Carafate] 1 g PO TID 56 Days #168 tab 05/11/20 05/22/20 Unknown aluminum hydrox-magnesium carb 1 tab PO QID PRN 05/22/20 05/22/20 Unknown [Acid Gone Antacid E.Strength] cyanocobalamin (vitamin B-12) 500 mcg PO DAILY 05/22/20 05/22/20 Unknown dicyclomine 20 mg PO BID 05/22/20 05/22/20 Unknown promethazine 25 mg PO TID PRN 05/22/20 05/22/20 Unknown Active Medications Generic Name Dose Route Start Last Admin Trade Name Freq PRN Reason Stop Dose Admin Pantoprazole Sodium 40 mg/ 100 mls @ 20 mls/hr 05/22/20 07:15 05/22/20 07:11 Dextrose IV 06/21/20 07:14 8 mg/hr Q5H STEPHANE 20 mls/hr Administration 8 MG/HR Insulin Aspart 0 units 05/22/20 06:00 05/22/20 06:04 Insulin Aspart 100 Units/Ml 3 Ml Pen SC 06/21/20 05:59 Not Given Q6 STEPHANE NPO Date Last Intake of Fluids: 05/21/20 Date Last Intake of Solids: 05/21/20 Past Medical History Medical History Allergic rhinitis Anemia Anxiety Atrial fibrillation Bone lesion BPH (benign prostatic hyperplasia) Cataract Bilateral cataracts - had surgery on both eyes; Chronic back pain Chronic pulmonary embolism Cirrhosis Depressive disorder Diabetes mellitus, type 2 Diastolic dysfunction DVT (deep venous thrombosis) GERD (gastroesophageal reflux disease) H/O: CVA (cerebrovascular accident) HTN (hypertension) Incarcerated umbilical hernia Osteoarthritis Peptic ulcer disease Presence of IVC filter Prostate cancer Sciatica Streptococcal bacteremia Thrombocytopenia Tobacco abuse Tremor Exercise / Class Metabolic Activity III < 4 Walking/Shop/Light housework Past Family History Family History Mother , in her 80s Myocardial infarction Stroke Father , in her 60s Myocardial infarction Sister No problems noted. Sister No problems noted. Sister No problems noted. Son No problems noted. Son No problems noted. Son No problems noted. Son No problems noted. Son No problems noted. Daughter No problems noted. Daughter No problems noted. Daughter No problems noted. Daughter No problems noted. Daughter No problems noted. Daughter Unknown family medical history Other Family history non-contributory Past Surgical History Surgical History H/O right knee surgery History of appendectomy History of cataract surgery left. 12/2018. 2mg versed. History of cataract surgery Social History Smoking Status: Never smoker tobacco type: smokeless tobacco Smoking cigarettes per day: 20 Hx Alcohol Use: No Alcohol type: hard liquor alcohol intake frequency: 3 or more drinks per day Hx Substance Use: No substance use type: does not use Physical Exam Vital Signs Last Vital Signs Temp 37.2 C 05/22/20 08:20 Pulse 93 H 05/22/20 08:49 Resp 16 05/22/20 08:49 BP 123/64 05/22/20 08:49 Pulse Ox 96 05/22/20 08:49 Testing Laboratory Results 05/22/20 01:47 05/22/20 01:47 PT 13.0 Seconds (9.0-12.0) H 05/22/20 01:47 INR 1.2 (0.9-1.1) H 05/22/20 01:47 APTT 23.1 Seconds (21.0-31.0) 05/22/20 01:47 Blood Type O Positive 05/22/20 01:47 Antibody Screen NEGATIVE 05/22/20 01:47 05/22/20 05:50 POC Glucose 143 H
[2020-05-22] MEDS ORDERED: fentaNYL citrate 100 MCG/2 ML VIAL ONE (09:58)
[2020-05-22] MEDS ORDERED: LIDOCAINE HCL 2% 2 ML VIAL/AMP(20MG/ML) INFIL ONE (09:58)
[2020-05-22] MEDS ORDERED: PROPOFOL IV EMULSION 10 MG/ML 20 ML VIAL IV ONE (09:58)
[2020-05-22] MEDS ORDERED: ATROPINE SULFATE 0.1 MG/ML 10ML SYR IV PRN (10:07)
[2020-05-22] MEDS ORDERED: ONDANSETRON INJ 2 MG/ML 2 ML VIAL IV PRN (10:07)
[2020-05-22] MEDS ORDERED: CALCIUM CHLORIDE 10% 10 ML SYR IV ONE (10:11)
[2020-05-22 10:52] LABS: Hemoglobin 7.7 g/dL (14.0-18.0)
[2020-05-22 11:10] LABS: Hematocrit (blood only) 24.1 % (42-52); Hemoglobin 8.2 g/dL (14.0-18.0)
--- NOTE | 2020-05-22 11:14 | Electrocardiogram Report ---
Test Reason : Blood Pressure : / mmHG Vent. Rate : 105 BPM Atrial Rate : 300 BPM P-R Int : 000 ms QRS Dur : 108 ms QT Int : 364 ms P-R-T Axes : 000 -27 121 degrees QTc Int : 481 ms Atrial fibrillation with rapid ventricular response Abnormal ECG When compared with ECG of 08-MAY-2020 00:01, Vent. rate has increased BY 41 BPM QRS duration has decreased ST now depressed in Anterior leads T wave inversion more evident in Anterolateral leads Confirmed by Stanislaw Coyle ([id number]) on 05/22/2020 11:14:45 AM Referred By: Cortez BOND Confirmed By:Kevin Coyle
--- NOTE | 2020-05-22 12:12 | GI REPORT ---
Patient Name: Good Ramírez Procedure Date: 05/22/2020 9:03 AM Date of : 1940 Admit Type: Inpatient Age: 79 Gender: Male Attending MD: Ty Kauffman DO Procedure: Upper GI endoscopy Providers: Ty Kauffman DO Referring MD: Rafael Herrera DO Indications: Acute post hemorrhagic anemia, Coffee-ground emesis, Melena Medicines: Monitored Anesthesia Care, General Anesthesia Complications: Significant hemorrhage Estimated Blood Loss: Estimated blood loss: 250 mL requiring treatment with epinephrine. Procedure: Pre-Anesthesia Assessment: - Prior to the procedure, a History and Physical was performed, and patient medications and allergies were reviewed. The patient's tolerance of previous anesthesia was also reviewed. The risks and benefits of the procedure and the sedation options and risks were discussed with the patient. All questions were answered, and informed consent was obtained. Prior Anticoagulants: The patient has taken no previous anticoagulant or antiplatelet agents. ASA Grade Assessment: IV - A patient with severe systemic disease that is a constant threat to life. After reviewing the risks and benefits, the patient was deemed in satisfactory condition to undergo the procedure. After obtaining informed consent, the endoscope was passed under direct vision. Throughout the procedure, the patient's blood pressure, pulse, and oxygen saturations were monitored continuously. The Endoscope was introduced through the mouth, and advanced to the second part of duodenum. The upper GI endoscopy was accomplished without difficulty. The patient tolerated the procedure well. Findings: The esophagus was normal. The entire examined stomach was normal. One partially obstructing oozing cratered duodenal ulcer with a visible vessel was found in the duodenal bulb. The lesion was 30 mm in largest dimension. Perforation of the bowel wall cannot be ruled out. Area was unsuccessfully injected with 1 mL of a 1:10,000 solution of epinephrine for hemostasis, however worsening bleeding resulted which occluded visual field for any attempts at further endoscopic therapy. Impression: - Normal esophagus. - Normal stomach. - Partially obstructing oozing duodenal ulcer with a visible vessel. NSAID induced etiology. Perforation of the bowel wall cannot be ruled out. Treatment not successful. - No specimens collected. Recommendation: - Transfer patient to another hospital for possile interventional radiology procedure as it appears bleed is from gastroduodenal artery. - NPO. - Continue present medications. - Discussed case with Dr. Domínguez of Surgery and decision was made to transfer patient [facility] for IR intervention. Ty Kauffman, DO 05/22/2020 12:11:44 PM This report has been signed electronically. Note Initiated On: 05/22/2020 9:03 AM Number of Addenda: 0 I attest to the content of the Intraoperative Record and orders documented therein, exceptions below {[id number]}
[2020-05-22] MEDS ORDERED: TRANEXAMIC ACID 1,000 MG in 0.9 % SODIUM CHLORIDE 500 ML IV SCH (12:15)
[2020-05-22 12:19] LABS: Basophils # (auto) 0.08 K/uL (0-0.2); Basophils % (auto) 0.6 %; Eosinophils # (auto) 0.12 K/uL (0-0.5); Eosinophils % (auto) 0.9 %; Hemoglobin 7.1 g/dL (14.0-18.0); Immature Granulocytes # (auto) 0.03 K/uL (0.00-0.02); Immature Granulocytes % (auto) 0.2 %; Lymphocytes # (auto) 1.73 K/uL (1.2-3.4); Lymphocytes % (auto) 12.8 %; Mean Corpuscular Hemoglobin 31.6 pg (25-34); Mean Corpuscular Volume 93.3 fL (80-100); Monocytes # (auto) 0.91 K/uL (0.11-0.59); Monocytes % (auto) 6.7 %; Neutrophils # (auto) 10.66 K/uL (1.4-6.5); Neutrophils % (auto) 78.8 %; Platelet Count 188 K/uL (130-400); RDW Coefficient of Variation 17.4 % (11.5-14.5); RDW Standard Deviation 55.8 fL (36.4-46.3); Red Blood Count 2.25 M/uL (4.7-6.1); White Blood Count 13.53 K/uL (4.8-10.8)
[2020-05-22 12:39] LABS: Anisocytosis Present; Mean Corpuscular Hgb Conc 33.8 g/dL (32-36)
[2020-05-22] MEDS ORDERED: TRANEXAMIC ACID / 0.7% NACL 1000MG/100ML BAG IV ONE (12:39)
--- NOTE | 2020-05-22 12:42 | Surgery Consultation ---
Date of Consultation May 22, 2020 Assessment & Plan (1) Upper GI hemorrhage: 79-year-old male with advanced cirrhosis and multiple medical problems with large posterior cratered ulcer with significant bleeding. The concern is that this may have eroded into the GDA. Given his multiple medical problems and cirrhosis he is a poor candidate for surgery. He is responding to resuscitation and after discussion with GI and with ICU, we have coordinated transfer to [facility] as long as he remains stable. He has no next of kin to contact and does not have a living will so we are not aware of his wishes. Surgery has been immediately available at the bedside in the operating room in case his pressures dropped and he required emergency laparotomy with oversewing of the GDA. We will continue to monitor until he departs on the [facility]. (2) Cirrhosis: (3) Atrial fibrillation: (4) Hepatic encephalopathy: (5) COPD (chronic obstructive pulmonary disease): History of Present Illness Reason for Consultation: GI bleed Requesting Physician: Ty Kauffman Attending Physician: Rafael Herrera DO History of Present Illness I was called in the operating room by Dr. Ty Kauffman from gastroenterology during an endoscopy procedure due to significant bleeding. Mr. Giovanny Finch is a 79-year-old incarcerated male with cirrhosis and a history of a bleeding posterior duodenal ulcer. He had been here in the hospital a few weeks ago and had endoscopy with treatment. He returned last night with a recurrent GI bleed. He was obtunded and had an elevated ammonia level. His presenting hemoglobin was 5. He was admitted to the ICU and resuscitated overnight and his morning hemoglobin was 8. He was taken for an EGD where a cratered posterior duodenal ulcer was again noted with clot. There was some slight oozing and during injection of epinephrine profuse bleeding started. They were unable to control the bleeding at the time. He was given packed red blood cells, endoscopy was aborted, and I was called into the room. On my arrival the patient was in tubated and sedated. He had an A-line placed which showed maps in the 60s. He was slightly tachycardic in the low 100s. His abdomen was soft. We discussed the case with Dr. Chen from the ICU, and he coordinated transfer. The patient remained stable as he was receiving 3 units of PRBCs and a unit of platelets and awaiting FFP and TXA. His maps improved into the high 70s and his heart rate was in the high 90s. Allergies Allergy/AdvReac Type Severity Reaction Status Date / Time doxazosin [From Cardura] Allergy Unknown Unknown Unverified 05/22/20 02:12 prazosin [From Minipress] Allergy Unknown Unknown Unverified 05/22/20 02:12 Home Medications Medication Instructions Recorded Confirmed Type cyanocobalamin (vitamin B-12) 1,000 mcg PO DAILY 06/12/18 05/22/20 History [Vitamin B-12] folic acid 1 mg PO QAM 06/12/18 05/22/20 History lactulose 30 ml PO BID 06/12/18 05/22/20 History metformin 500 mg PO HS 06/12/18 05/22/20 History nitroglycerin [Nitrostat] 0.4 mg SUBLINGUAL UD PRN 06/12/18 05/22/20 History diltiazem HCl 180 mg PO QAM 12/06/18 05/22/20 History tamsulosin 0.4 mg PO DAILY 02/06/19 05/22/20 History levalbuterol tartrate 45 2 puffs INH QID PRN 04/08/19 05/22/20 History mcg/actuation aerosol inhaler paroxetine HCl 20 mg tablet 20 mg PO DAILY 05/04/20 05/22/20 History Lupron Depot (3 month) 22.5 mg IM UD 05/08/20 05/22/20 History Xifaxan 550 mg PO BID 05/08/20 05/22/20 History acetaminophen-codeine 2 tab PO TID PRN 05/08/20 05/22/20 History capsaicin 1 applic TOPICAL QID 05/08/20 05/22/20 History digoxin 250 mcg PO DAILY 05/08/20 05/22/20 History fluticasone propion-salmeterol 1 inh INHALATION BID 05/08/20 05/22/20 History [Wixela Inhub] vitamin A and D 1 applic TOPICAL QID 05/08/20 05/22/20 History ferrous sulfate 325 mg PO QDB 30 Days #30 tab 05/11/20 05/22/20 Rx pantoprazole 40 mg PO BID 56 Days #112 tab 05/11/20 05/22/20 Rx sucralfate [Carafate] 1 g PO TID 56 Days #168 tab 05/11/20 05/22/20 Rx aluminum hydrox-magnesium carb 1 tab PO QID PRN 05/22/20 05/22/20 History [Acid Gone Antacid E.Strength] cyanocobalamin (vitamin B-12) 500 mcg PO DAILY 05/22/20 05/22/20 History dicyclomine 20 mg PO BID 05/22/20 05/22/20 History promethazine 25 mg PO TID PRN 05/22/20 05/22/20 History Patient History Medical History Allergic rhinitis Anemia Anxiety Atrial fibrillation Bone lesion BPH (benign prostatic hyperplasia) Cataract Bilateral cataracts - had surgery on both eyes; Chronic back pain Chronic pulmonary embolism Cirrhosis Depressive disorder Diabetes mellitus, type 2 Diastolic dysfunction DVT (deep venous thrombosis) GERD (gastroesophageal reflux disease) H/O: CVA (cerebrovascular accident) HTN (hypertension) Incarcerated umbilical hernia Osteoarthritis Peptic ulcer disease Presence of IVC filter Prostate cancer Sciatica Streptococcal bacteremia Thrombocytopenia Tobacco abuse Tremor Surgical History H/O right knee surgery History of appendectomy History of cataract surgery left. 12/2018. 2mg versed. History of cataract surgery Family History Mother , in her 80s Myocardial infarction Stroke Father , in her 60s Myocardial infarction Sister No problems noted. Sister No problems noted. Sister No problems noted. Son No problems noted. Son No problems noted. Son No problems noted. Son No problems noted. Son No problems noted. Daughter No problems noted. Daughter No problems noted. Daughter No problems noted. Daughter No problems noted. Daughter No problems noted. Daughter Unknown family medical history Other Family history non-contributory Social History Smoking Status: Never smoker Tobacco Type: Cigarettes Age Started Using Tobacco: 11; Cigarettes Per Day: 20; Second Hand Exposure: No; Hx Alcohol Use: No Hx Substance Use: No Preferred Language: Honduran Communication Ability: Effective Visual Impairment: No Limitations Hearing Ability: Normal Us Marketing Director Required: No Beliefs That Will Affect Care: None marital status: Single Current Living Situation: Other Current Living Situation Comment: [facility] current occupational status: unemployed Other Information That Helps Us Care for You: No Feels Safe at Home: Yes Safety Concerns: Feels Safe At This Time caffeine: Yes (2 cups/day) during the past year weight has: remained stable Assistive Devices: None Physical Exam Constitutional: Intubated, sedated, paralyzed Gastrointestinal (Abdomen): normal bowel sounds, soft, nontender, no hepatosplenomegaly Results & Data ([facility]) Vital Signs (Past 12 Hours) Vital Signs Temp Pulse Pulse Pulse Resp BP BP 05/22/20 09:20 88 18 115/68 05/22/20 08:49 93 H 16 123/64 05/22/20 08:20 37.2 C 93 H 12 103/56 L 05/22/20 08:19 93 H 9 L 119/60 05/22/20 08:05 82 16 117/62 05/22/20 07:48 37.1 C 87 19 112/58 L 05/22/20 07:00 99 H 17 113/61 05/22/20 06:30 36.9 C 94 H 16 117/63 05/22/20 06:15 37.4 C 92 H 16 114/55 L 05/22/20 05:58 37.1 C 98 H 16 102/64 05/22/20 05:45 85 18 102/68 05/22/20 05:11 102 H 17 95/62 L 05/22/20 04:46 93 H 20 96/63 L 05/22/20 04:22 37.1 C 100 H 20 112/61 05/22/20 04:10 37.0 C 103 H 16 110/72 05/22/20 04:01 37.0 C 105 H 16 99/68 L 05/22/20 03:46 37.1 C 100 H 16 99/66 L 05/22/20 03:41 37.1 C 104 H 16 91/63 L 05/22/20 03:34 37.1 C 98 H 16 96/59 L 05/22/20 03:28 37.1 C 101 H 16 99/59 L 05/22/20 02:50 102 H 16 85/59 L 05/22/20 01:31 05/22/20 01:26 36.5 C 103 H 18 100/68 Pulse Ox 05/22/20 09:20 99 05/22/20 08:49 96 05/22/20 08:20 100 05/22/20 08:19 98 05/22/20 08:05 99 05/22/20 07:48 100 05/22/20 07:00 98 05/22/20 06:30 98 05/22/20 06:15 100 05/22/20 05:58 99 05/22/20 05:45 95 05/22/20 05:11 96 05/22/20 04:46 94 05/22/20 04:22 97 05/22/20 04:10 98 05/22/20 04:01 97 05/22/20 03:46 94 05/22/20 03:41 94 05/22/20 03:34 94 05/22/20 03:28 98 05/22/20 02:50 97 05/22/20 01:31 98 05/22/20 01:26 98 PG Care Time/CCT Total # of Minutes Spent Total Time Spent with Patient: Total time spent is greater than 50% in coordination of care (as documented) at patient's floor/unit and/or counseling patient: Coding Level of Care Code 58169 Inpt Consult Level 5 Diagnoses Upper GI hemorrhage K92.2 Cirrhosis K70.30 Ascites presence: without ascites Hepatic cirrhosis type: alcoholic cirrhosis Atrial fibrillation I48.20 Atrial fibrillation type: unspecified chronic Hepatic encephalopathy K72.90 COPD (chronic obstructive pulmonary disease) J44.9 (1) Cirrhosis Ascites presence: without ascites Hepatic cirrhosis type: alcoholic cirrhosis Qualified Code(s): K70.30 - Alcoholic cirrhosis of liver without ascites (2) Atrial fibrillation Atrial fibrillation type: unspecified chronic Qualified Code(s): I48.20 - Chronic atrial fibrillation, unspecified
[2020-05-22 12:43] LABS: Albumin Level 1.6 gm/dl (3.4-5.0); BUN Creatinine Ratio 33.9 (10-20); Calcium 7.5 mg/dl (8.5-10.1); Creatinine Clr Calc Pharmacy 58.3 ml/min; Est GFR (African American) 72.3; Est GFR (Non-African American) 62.4; Potassium 4.8 mmol/L (3.5-5.1)
--- NOTE | 2020-05-22 12:45 | Communication Note ---
Date of Service: May 22, 2020 Called to the OR as the patient was undergoing EGD had read out from bleeding vessel and requested facilitation of transfer to IR. I contacted [facility] with interventional radiology and the patient was accepted by Dr. Rudd of critical care. He will be flown via [facility] This time I have ordered 4 of FFP, 1 of platelet and 1 g TXA and they are working on administering blood product in the operating room. I have personally spent 30 minutes of critical care time in the direct management of this patient. This is a life/limb threatening event. This includes time spent evaluating patient, direct bedside care, chart review, placing orders, interpretation of diagnostic studies, discussion with consultants, patient, and/or family members regarding treatment decisions, as well as other required patient management activities. This time is exclusive of all separately billable procedures, and teaching time and separate from and in addition to any other critical care service time. Coding Level of Care Code Critical Care marianela addt'l 30 min
[2020-05-22 12:46] LABS: Albumin Globulin Ratio 0.7 (0.9-2); Bilirubin,Total 0.8 mg/dl (0.2-1); Globulin 2.2 gm/dl (2.5-4.0); Total Protein 3.8 gm/dl (6.4-8.2)
--- NOTE | 2020-05-22 13:02 | Anesthesiology Progress Note ---
Date of Service May 22, 2020 Anesthesia Post Procedure Vital Signs Vital Signs: Temp Pulse Pulse Pulse Resp BP BP 05/22/20 09:20 88 18 115/68 05/22/20 08:49 93 H 16 123/64 05/22/20 08:20 37.2 C 93 H 12 103/56 L 05/22/20 08:19 93 H 9 L 119/60 05/22/20 08:05 82 16 117/62 05/22/20 07:48 37.1 C 87 19 112/58 L 05/22/20 07:00 99 H 17 113/61 05/22/20 06:30 36.9 C 94 H 16 117/63 05/22/20 06:15 37.4 C 92 H 16 114/55 L 05/22/20 05:58 37.1 C 98 H 16 102/64 05/22/20 05:45 85 18 102/68 05/22/20 05:11 102 H 17 95/62 L 05/22/20 04:46 93 H 20 96/63 L 05/22/20 04:22 37.1 C 100 H 20 112/61 05/22/20 04:10 37.0 C 103 H 16 110/72 05/22/20 04:01 37.0 C 105 H 16 99/68 L 05/22/20 03:46 37.1 C 100 H 16 99/66 L 05/22/20 03:41 37.1 C 104 H 16 91/63 L 05/22/20 03:34 37.1 C 98 H 16 96/59 L 05/22/20 03:28 37.1 C 101 H 16 99/59 L 05/22/20 02:50 102 H 16 85/59 L 05/22/20 01:31 05/22/20 01:26 36.5 C 103 H 18 100/68 Pulse Ox 05/22/20 09:20 99 05/22/20 08:49 96 05/22/20 08:20 100 05/22/20 08:19 98 05/22/20 08:05 99 05/22/20 07:48 100 05/22/20 07:00 98 05/22/20 06:30 98 05/22/20 06:15 100 05/22/20 05:58 99 05/22/20 05:45 95 05/22/20 05:11 96 05/22/20 04:46 94 05/22/20 04:22 97 05/22/20 04:10 98 05/22/20 04:01 97 05/22/20 03:46 94 05/22/20 03:41 94 05/22/20 03:34 94 05/22/20 03:28 98 05/22/20 02:50 97 05/22/20 01:31 98 05/22/20 01:26 98 Transfer of Care Handoff Completed per policy Notes Mental Status: see notes below Nausea / Vomiting: adequately controlled Pain: adequately controlled Airway Patency, RR, SpO2: see Notes below BP & HR: see Notes below Hydration State: see Notes below Anesthetic Complications: no major complications apparent Notes: Patient with large duodenal ulcer who developed arterial bleed during endoscopy. Patient intubated without difficulty, ectra IV started, liborio placed. Transfused with PRBC's, platelets and FFP while decisions made about course of treatment. Due to high morbidity of open lap repair due to his cirrhosis and deconditioning it was determined the best treatment would be interventional radiology if available. With blood products he has held his blood pressure and heart rate stable and IR was found to be available at [facility] so he is being [facility] intubated.
[2020-05-22] MEDS ORDERED: MIDAZOLAM HCL 1 MG/ML 2ML VIAL ONE (13:42)
[2020-05-22] MEDS ORDERED: SUCCINYLCHOLINE 100MG/5ML SYR IV ONE (13:55)
[2020-05-22] MEDS ORDERED: ETOMIDATE 2 MG/ML 20 ML VIAL IV ONE (13:55)
[2020-05-22] MEDS ORDERED: PHENYLEPHRINE 100MCG/ML 5ML SYR ONE (13:55)
[2020-05-22] MEDS ORDERED: LACTULOSE SYRUP 30 GM/45 ML UDP PO SCH (14:00)
--- NOTE | 2020-05-22 15:59 | Discharge Summary ---
Date of Service May 22, 2020 Admission HPI Per Admitting Provider 79-year-old male with past medical history significant for history of cirrhosis, history of UTIs with ESBL, history of atrial fibrillation, currently Coumadin on hold, history of prostate cancer, history of diastolic dysfunction, history of type 2 diabetes, BPH, GERD, history of gallstones. He was supposed to get elective cholecystectomy, but recently, he got admitted on 05/08/2020 with symptomatic anemia and GI bleed and supratherapeutic INR. Received 3 units of PRBCs and vitamin K and EGDs done on 05/09/2020 showed no varices. No portal gastropathy. A large cratered clean-based ulcer in the posterior wall of the duodenal bulb. He was discharged on PPI twice daily for 8 weeks and sucralfate and to do a repeat EGD in 8 weeks, and he was [facility] to [facility]. His hb 7.8 on discharge. He comes today because of having black stools for the last 1 or 2 days and also he had some blood in the vomitus and he has coffee-ground emesis tonight and his hemoglobin was found to be 4.8. Blood pressure is somewhat on the lower side. Mild tachycardia. The patient complains of abdominal pain, moderate in severity. The patient is also having ongoing abdominal pain from his gallbladder disease and supposed to have elective cholecystectomy.The patient denies any cough, no chest pain. No headache, no blurred vision, no earache, no runny nose, no sore throat. Appetite is not that great. Normal bladder movements. Afebrile. Admission Exam Per Admitting Provider GENERAL: The patient is of moderate build, not in acute distress. VITAL SIGNS: Temperature 37, pulse 105, respiratory rate 16, blood pressure 99/68, oxygen 97% on room air. HEENT: Pupils equal, round, and reactive to light. Palor present, no icterus. Oral mucosa dry. NECK: No JVD, no neck masses. CARDIOVASCULAR: S1, S2 heard, regular rate and rhythm, no murmur, no gallop. RESPIRATORY SYSTEM: Normal AP diameter. No accessory muscle use. No wheezing, no crackles. ABDOMEN: Soft, bowel sounds present. Mild abdominal diffuse discomfort. No guarding, no rigidity, no distention. CENTRAL NERVOUS SYSTEM: Cranial nerves II-XII grossly intact. Nonfocal. EXTREMITIES: No edema, no erythema. Principal Diagnosis 1. Gastrointestinal bleed and profound anemia, hematemesis, and melena: 2. History of liver cirrhosis: 3. History of gastric duodenal ulcer: 4. History of atrial fibrillation: 5. History of prostate cancer: 6. Type 2 diabetes: 7. Abdominal pain: 8. History of recurrent urinary tract infections: Discharge Exam see below Discharge Data Allergies Allergy/AdvReac Type Severity Reaction Status Date / Time doxazosin [From Cardura] Allergy Unknown Unknown Unverified 05/22/20 02:12 prazosin [From Minipress] Allergy Unknown Unknown Unverified 05/22/20 02:12 Consultations 05/22/20 02:50 ED Decision to Admit Stat 05/22/20 05:00 Consult Case Management - Discharge Planning Routine Consult Gastroenterology Routine 05/22/20 08:00 Consult Car Shunter Routine Current Diagnoses Acute posthemorrhagic anemia (05/22/20) Chronic atrial fibrillation, unspecified (05/22/20) Chronic obstructive pulmonary disease, unspecified (05/22/20) Peptic ulcer, site unspecified, unspecified as acute or chronic, without hemorrhage or perforation (05/22/20) Alcoholic cirrhosis of liver without ascites (05/22/20) Hepatic failure, unspecified without coma (05/22/20) Melena (05/22/20) Gastrointestinal hemorrhage, unspecified (05/22/20) Encounter for other preprocedural examination (05/22/20) Other specified health status (05/22/20) Allergies doxazosin [From Cardura] Allergy (Unknown, Unverified 05/22/20 02:12) Unknown prazosin [From Minipress] Allergy (Unknown, Unverified 05/22/20 02:12) Unknown Height/Weight/Isolation Height 5 ft 11 in Weight 84.7 kg Chemistry 05/22/20 05/22/20 05/22/20 01:47 10:22 12:10 Sodium 141 142 Potassium 5.2 H 4.8 4.8 Chloride 111 H 115 H Carbon Dioxide 27 24 Anion Gap 3.0 3.0 BUN 39 H 38 H Creatinine 1.27 1.13 Glucose 147 H 142 H Procedures Performed Operation Date: 05/22/20 09:30 Actual Procedures p Esophagoscopy - Ty Kauffman, DO Hospital Course (1) Upper GI hemorrhage: Patient seen by my partner this am, will follow. Labs Checked ASSESSMENT AND PLAN: This is a 79-year-old male who presents with gastrointestinal bleed. 1. Gastrointestinal bleed and profound anemia, hematemesis, and melena: Last admission also presented with gastrointestinal bleed and EGD showed a posterior duodenal bulb ulcer. No varices seen. History of cirrhosis. Follow H and H q. 6 hours. Protonix drip, n.p.o., gentle fluids. GI consulted and planned for EGD soon. Closely monitor in the ICU. 2. History of liver cirrhosis: Currently continue lactulose and Xifaxan. 3. History of gastric duodenal ulcer: Continue on PPI drip. Hold home p.o. Protonix and sucralfate. 4. History of atrial fibrillation: Rate is under control. Holding digoxin and verapamil. Placing on IV Lopressor p.r.n. Coumadin held last admission because of GI bleed. Follow up digoxin level.Monitor heart rates. 5. History of prostate cancer: On Lupron shots. 6. Type 2 diabetes: Hold metformin, placed on insulin sliding scale. Last admission, HbA1c was 5.3. 7. Abdominal pain: Could be from peptic ulcer disease, also from his cholelithiasis. There was a plan for elective procedure, but it was held because of GI bleed last admission. 8. History of recurrent urinary tract infections: We will monitor. Last adm ission received Invanz for ESBL UTI. 9. Deep vein thrombosis prophylaxis: Sequential compression devices. The patient was scoped in the ICU by Dr. Kauffman, he found a duodenal ulcer that he he injected, but the bleeding would not stop. was involved and it was decided to transfer him to [facility] [place]. DISPOSITION: Closely monitor in the ICU. Level 1 full code. ROS-Offered no history Physical Exam Gen-Sleeping, NAD, Afebrile Head-NCAT, EOMI, PERRLA, Anicteric Sclera, No Posterior Pharyngeal Erythema Neck-Supple, No JVD, No Thyromegaly, No Masses, No LAD, No Bruits Lungs-Clear to Auscultation Bilaterally, No Rales, No Rhonchi, No Wheezing, No Crepitus Chest-No S4, +S1, +S2, No S3, No Murmurs, No Rubs, No Gallops, No Ectopy Abdomen-Soft, Bowel Sounds Present, Non Tender, Non Distended, No Hepatomegaly, No Splenomegaly, No Palpable Masses, No Rebound, No Rigidity, No Guarding Musculoskeletal-Full Range of Motion Bilaterally, No CVAT Extremities-No Cyanosis, No Clubbing, No Edema Nuero-Cranial Nerves II-XII grossly intact, Motor WNL, DTRs WNL, Strength WNL, Non Focal Psych-Somnolent Total Time Total Time Spent Total Time Spent (In Minutes): 45 mins Total Time Includes: Discharge Planning, Medication Reconciliation and Communication With Other Providers Discharge Plan Discharge Items Patient Disposition: Transfer Acute [facility] Reason For Visit: GI BLEED Discharge Diagnosis: 1. Gastrointestinal bleed and profound anemia, hematemesis, and melena: 2. History of liver cirrhosis: 3. History of gastric duodenal ulcer: 4. History of atrial fibrillation: 5. History of prostate cancer: 6. Type 2 diabetes: 7. Abdominal pain: 8. History of recurrent urinary tract infections: Condition on Discharge: Critical Health Concerns: Blleding out Activity: Per Instructions section Activity Comment: Transfer to [facility] [place] Lifting: None Non-emergency contact: Specialist Call non-emergency contact if: you have any medication questions Follow-up/Referrals: Cortez BOND [Primary Care Provider] - Diet: Other - See Diet Comment Diet Comment: npo Addtl Attending Provider Instructions: none Pending Studies at Discharge: No Skilled Items Patient informed of condition?: Yes DNR: No Communicable Disease: No Discharge Prognosis: Other Lines: Peripheral IV Urinary Catheter: Yes Medications and DC Order Prescriptions: Discontinued levalbuterol tartrate [Xopenex HFA] 45 mcg/actuation HFA aerosol inhaler 2 puffs INH QID PRN (Reason: Shortness Of Breath Or Wheezing) RF: 0 paroxetine HCl [Paxil] 20 mg tablet 20 mg PO DAILY RF: 0 tamsulosin 0.4 mg Capsule 0.4 mg PO DAILY RF: 0 folic acid 1 mg Tablet 1 mg PO QAM RF: 0 metformin 500 mg Tablet 500 mg PO HS RF: 0 cyanocobalamin (vitamin B-12) [Vitamin B-12] 1,000 mcg Tablet 1,000 mcg PO DAILY RF: 0 nitroglycerin [Nitrostat] 0.4 mg Tablet, Sublingual 0.4 mg Sublingual UD PRN (Reason: Chest Pain) RF: 0 lactulose 10 gram/15 mL Solution 30 ml PO BID RF: 0 diltiazem HCl 180 mg Capsule,Extended Release 24hr 180 mg PO QAM RF: 0 acetaminophen-codeine 300-30 mg Tablet 2 tab PO TID PRN (Reason: Pain) RF: 0 fluticasone propion-salmeterol [Wixela Inhub] 100-50 mcg/dose Blister With Device 1 inh INHALATION BID RF: 0 vitamin A and D Ointment 1 applic TOPICAL QID RF: 0 digoxin 250 mcg (0.25 mg) Tablet 250 mcg PO DAILY RF: 0 capsaicin 0.025 % Cream 1 applic TOPICAL QID RF: 0 Xifaxan 550 mg Tablet 550 mg PO BID RF: 0 Lupron Depot (3 month) 22.5 mg Syringe Kit 22.5 mg IM UD RF: 0 ferrous sulfate 325 mg (65 mg iron) Tablet,Delayed Release (Dr/Ec) 325 mg PO QDB 30 Days Qty: 30 RF: 0 sucralfate [Carafate] 1 gram tablet 1 g PO TID 56 Days Qty: 168 RF: 0 pantoprazole 40 mg Tablet,Delayed Release (Dr/Ec) 40 mg PO BID 56 Days Qty: 112 RF: 0 dicyclomine 20 mg Tablet 20 mg PO BID RF: 0 cyanocobalamin (vitamin B-12) 500 mcg Tablet 500 mcg PO DAILY RF: 0 Acid Gone Antacid E.Strength 160-105 mg Tablet,Chewable 1 tab PO QID PRN (Reason: request) RF: 0 promethazine 25 mg Tablet 25 mg PO TID PRN (Reason: Nausea) RF: 0 Discharge Orders: Discharge Order (Routine); Ordered 05/22/20 Ordered By: Olman Whitt Admission Data Admit Date/Time: 05/22/20 03:46 Attending Provider: Rfaael Herrera Admit Provider: Roby Clarke Primary Care Provider: Cortez BOND Other Providers: Roby Clarke ; Ty Kauffman ; Janine Li Other Interventions: Discharge Summary Assessment (RN) Last Done: 05/22/20 13:22
== END 2020-05-22 13:24 | disposition short-term general hospital (02) | DRG 378 ==
LOC: ED 01:17 → 1E 03:46
PROC: M.ESOPH (2020-05-22 09:30)

== ENCOUNTER 2020-07-09 10:16 | Inpatient (IN) ==
[2020-07-09] MEDS ORDERED: MoRPHine SULFATE 4 MG/ML 1 ML CARP\\VIAL IV STA (10:51)
[2020-07-09] MEDS ORDERED: ONDANSETRON INJ 2 MG/ML 2 ML VIAL IV STA ×2 (10:51→14:29)
--- NOTE | 2020-07-09 11:04 | Emergency Department Note ---
History of Present Illness General Chief complaint: Abdominal Pain Stated complaint: LOWER ABD PAIN Time Seen by Provider: 07/09/20 10:43 Source: patient History of Present Illness Provider complaint: Right upper quadrant abdominal pain Onset (ago): day(s) Location: abdomen and right Radiation: non-radiation Severity: severe Maximum Pain Intensity: 10 Quality: + sharp Relieved By: + none Associated symptoms: + nausea/vomiting; no chest pain, no cough, no fever/chills and no shortness of breath This is a 80-year-old male who presents with right upper quadrant abdominal pain for the past 2 days. He describes it as sharp. He rates it a 10 out of 10 in severity. No alleviating factors. He is not sure if it is related to food as he has not been able to eat anything for the past 2 days. He does have associated vomiting. He denies any black or bloody stools. He denies any diarrhea. He denies any fever, chest pain, shortness of breath, cough or cold symptoms or urinary symptoms. He was told by a physician present that he had gallbladder problems in the past but he still has his gallbladder. Home Medications Medication Instructions Recorded Confirmed Type folic acid 1 mg PO QAM 06/12/18 07/09/20 History lactulose 30 ml PO BID 06/12/18 07/09/20 History metformin 500 mg PO HS 06/12/18 07/09/20 History nitroglycerin [Nitrostat] 0.4 mg SUBLINGUAL UD PRN 06/12/18 07/09/20 History diltiazem HCl 180 mg PO QAM 12/06/18 07/09/20 History tamsulosin 0.4 mg PO DAILY 02/06/19 07/09/20 History levalbuterol tartrate 45 2 puffs INH QID PRN 04/08/19 07/09/20 History mcg/actuation aerosol inhaler paroxetine HCl 20 mg tablet 20 mg PO DAILY 05/04/20 07/09/20 History Lupron Depot (3 month) 22.5 mg IM UD 05/08/20 07/09/20 History Xifaxan 550 mg PO BID 05/08/20 07/09/20 History acetaminophen-codeine 2 tab PO TID PRN 05/08/20 07/09/20 History digoxin 250 mcg PO DAILY 05/08/20 07/09/20 History fluticasone propion-salmeterol 1 inh INHALATION BID 05/08/20 07/09/20 History [Wixela Inhub] pantoprazole 40 mg PO BID 56 Days #112 tab 05/11/20 07/09/20 Rx sucralfate [Carafate] 1 g PO TID 56 Days #168 tab 05/11/20 07/09/20 Rx cyanocobalamin (vitamin B-12) 500 mcg PO DAILY 05/22/20 07/09/20 History dicyclomine 20 mg PO BID 05/22/20 07/09/20 History aluminum hydrox-magnesium carb 1 tab PO QID PRN 07/09/20 07/09/20 History [Gaviscon Extra Strength] ferrous sulfate 325 mg PO DAILY 07/09/20 07/09/20 History losartan 25 mg PO DAILY 07/09/20 07/09/20 History peg [id number] 2 drp OPR QID 07/09/20 07/09/20 History [Visine Tears] thiamine mononitrate (vit B1) 100 mg PO DAILY 07/09/20 07/09/20 History Allergies Allergy/AdvReac Type Severity Reaction Status Date / Time doxazosin [From Cardura] Allergy Unknown Unknown Unverified 07/09/20 11:55 prazosin [From Minipress] Allergy Unknown Unknown Unverified 07/09/20 11:55 Past Med/Surg History Medical History Allergic rhinitis Anemia Anxiety Atrial fibrillation Bone lesion BPH (benign prostatic hyperplasia) Cataract Bilateral cataracts - had surgery on both eyes; Chronic back pain Chronic pulmonary embolism Cirrhosis Depressive disorder Diabetes mellitus, type 2 Diastolic dysfunction DVT (deep venous thrombosis) GERD (gastroesophageal reflux disease) H/O: CVA (cerebrovascular accident) HTN (hypertension) Incarcerated umbilical hernia Osteoarthritis Peptic ulcer disease Presence of IVC filter Prostate cancer Sciatica Streptococcal bacteremia Thrombocytopenia Tobacco abuse Tremor Surgical History H/O right knee surgery History of appendectomy History of cataract surgery left. 12/2018. 2mg versed. 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 and A total of 10 systems reviewed and were otherwise negative Physical Exam Vital Signs Vital Signs - 24 hr 07/09/20 10:36 07/09/20 12:17 07/09/20 12:30 Temperature 36.4 C L Temperature Source Temporal Artery Scan Pulse Rate 100 H 97 H 90 Pulse Rate from SpO2 Sensor 96 H 92 H Respiratory Rate 20 20 19 Blood Pressure 183/92 H 173/107 H Blood Pressure Mean 122 129 Pulse Oximetry 97 93 94 Oxygen Delivery Method Room Air Sepsis Recent Fever Within 48 Hours No Sepsis New/Unexplained Change in Mental Status No Sepsis Action Taken by Nursing No Action Required 07/09/20 12:31 07/09/20 12:51 07/09/20 13:00 Temperature Temperature Source Pulse Rate 100 H 90 96 H Pulse Rate from SpO2 Sensor 99 H 95 H 95 H Respiratory Rate 20 23 24 Blood Pressure 174/101 H 173/105 H Blood Pressure Mean 125 127 Pulse Oximetry 93 96 97 Oxygen Delivery Method Sepsis Recent Fever Within 48 Hours Sepsis New/Unexplained Change in Mental Status Sepsis Action Taken by Nursing 07/09/20 13:01 07/09/20 13:30 07/09/20 13:31 Temperature Temperature Source Pulse Rate 92 H 99 H 101 H Pulse Rate from SpO2 Sensor 101 H 101 H 106 H Respiratory Rate 22 22 21 Blood Pressure 170/102 H Blood Pressure Mean 124 Pulse Oximetry 95 94 95 Oxygen Delivery Method Sepsis Recent Fever Within 48 Hours Sepsis New/Unexplained Change in Mental Status Sepsis Action Taken by Nursing 07/09/20 14:00 07/09/20 14:01 Temperature Temperature Source Pulse Rate 103 H 99 H Pulse Rate from SpO2 Sensor 105 H 102 H Respiratory Rate 21 21 Blood Pressure 184/114 H Blood Pressure Mean 137 Pulse Oximetry 95 95 Oxygen Delivery Method Sepsis Recent Fever Within 48 Hours Sepsis New/Unexplained Change in Mental Status Sepsis Action Taken by Nursing Constitutional: Vital signs reviewed. Eyes: Pupils are equal round reactive to light. Conjunctiva are noninjected. ENT: Pharynx is clear without erythema or exudate. Mucous membranes are moist. Neck supple without meningeal signs. Respiratory: Clear to auscultation bilaterally. Breath sounds are equal bilaterally. Cardiovascular: Regular rate and rhythm. No rubs or gallops. GI: Soft, nondistended with tenderness in the right upper quadrant. Positive Méndez sign. Bowel sounds are present. Musculoskeletal: No peripheral edema. No lower extremity tenderness. Integumentary: No cyanosis. or jaundice. Neurological: The patient is awake and alert. No focal deficits. Psychiatric: Normal affect. Not anxious appearing. Course Administered Medications Discontinued Medications Hydralazine HCl (Hydralazine Hcl 20 Mg/Ml Vial) 10 mg IV NOW STA Stop: 07/09/20 16:21 Last Admin: 07/09/20 16:38 Dose: 10 mg Documented by: [id number] Piperacillin Sod/Tazobactam Sod (Zosyn) 4.5 gm in 120 mls @ 240 mls/hr IV NOW ONE Stop: 07/09/20 15:04 Last Infusion: 07/09/20 16:28 Dose: 0 mls/hr Documented by: [id number] Admin: 07/09/20 15:32 Dose: 240 mls/hr Documented by: [id number] Morphine Sulfate (Morphine Sulfate 4 Mg/Ml 1 Ml Carp\Vial) 4 mg IV NOW STA Stop: 07/09/20 10:52 Last Admin: 07/09/20 12:10 Dose: 4 mg Documented by: [id number] Ondansetron HCl (Ondansetron Inj 2 Mg/Ml 2 Ml Vial) 4 mg IV NOW STA Stop: 07/09/20 10:52 Last Admin: 07/09/20 12:10 Dose: 4 mg Documented by: [id number] Ondansetron HCl (Ondansetron Inj 2 Mg/Ml 2 Ml Vial) 4 mg IV NOW STA Stop: 07/09/20 14:30 Last Admin: 07/09/20 15:32 Dose: 4 mg Documented by: [id number] Medical Decision Making Differential Diagnosis Cholecystitis, cholelithiasis, choledocholithiasis, biliary obstruction, peptic ulcer disease, hepatitis Medical Records Attestation: I reviewed the patient's medical records. I did perform a limited focused review of portions of the patient's old chart on the electronic medical record. The patient was admitted for a GI bleed in May. Home Medications Current Medication List: was personally reviewed by me Laboratory Data Attestation: I reviewed the patient's lab results. Result diagrams: 07/09/20 11:05 07/09/20 11:05 Lab Results 07/09/20 07/09/20 07/09/20 Range/Units 11:05 11:05 11:05 WBC 6.30 (4.8-10.8) K/uL RBC 2.79 L (4.7-6.1) M/uL Hgb 9.1 L (14.0-18.0) g/dL Hct 27.8 L (42-52) % MCV 99.6 (80-100) fL MCH 32.6 (25-34) pg MCHC 32.7 (32-36) g/dL RDW Std Deviation 72.6 H (36.4-46.3) fL RDW Coeff of Charo 20.1 H (11.5-14.5) % Plt Count 145 (130-400) K/uL MPV 10.8 H (7.4-10.4) fL Immature Gran % (Auto) 0.2 % Neut % (Auto) 75.9 % Lymph % (Auto) 16.5 % [place] % (Auto) 6.0 % Eos % (Auto) 0.8 % Baso % (Auto) 0.6 % Neut # (Auto) 4.78 (1.4-6.5) K/uL Lymph # (Auto) 1.04 L (1.2-3.4) K/uL [place] # (Auto) 0.38 (0.11-0.59) K/uL Eos # (Auto) 0.05 (0-0.5) K/uL Baso # (Auto) 0.04 (0-0.2) K/uL Immature Gran # (Auto) 0.01 (0.00-0.02) K/uL Anisocytosis Present PT 10.8 (9.0-12.0) Seconds INR 1.1 (0.9-1.1) APTT 27.1 (21.0-31.0) Seconds PTT Ratio 1.0 Sodium 140 (136-145) mmol/L Potassium 3.9 (3.5-5.1) mmol/L Chloride 109 H (98-107) mmol/L Carbon Dioxide 25 (21-32) mmol/L Anion Gap 5.0 (3-11) BUN 11 (7-18) mg/dl Creatinine 0.86 (0.6-1.4) mg/dl Est Cr Clr Drug Dosing Not Reportable Est GFR ( Amer) 96.3 Est GFR (Non-Af Amer) 83.1 BUN/Creatinine Ratio 12.5 (10-20) Glucose 110 H (70-99) mg/dl Calcium 9.7 (8.5-10.1) mg/dl Total Bilirubin 1.1 H (0.2-1) mg/dl AST 21 (15-37) U/L ALT 15 (12-78) U/L Alkaline Phosphatase 132 H (45-117) U/L Total Protein 6.7 (6.4-8.2) gm/dl Albumin 2.7 L (3.4-5.0) gm/dl Globulin 4.0 (2.5-4.0) gm/dl Albumin/Globulin Ratio 0.7 L (0.9-2) Lipase 73 (73-393) U/L Digoxin (0.8-2.0) ng/ml COVID-19 Eval Order SARS-CoV-2, RNA, NAAT (NEGATIVE) 07/09/20 07/09/20 07/09/20 Range/Units 14:08 14:08 14:19 WBC (4.8-10.8) K/uL RBC (4.7-6.1) M/uL Hgb (14.0-18.0) g/dL Hct (42-52) % MCV (80-100) fL MCH (25-34) pg MCHC (32-36) g/dL RDW Std Deviation (36.4-46.3) fL RDW Coeff of Charo (11.5-14.5) % Plt Count (130-400) K/uL MPV (7.4-10.4) fL Immature Gran % (Auto) % Neut % (Auto) % Lymph % (Auto) % [place] % (Auto) % Eos % (Auto) % Baso % (Auto) % Neut # (Auto) (1.4-6.5) K/uL Lymph # (Auto) (1.2-3.4) K/uL [place] # (Auto) (0.11-0.59) K/uL Eos # (Auto) (0-0.5) K/uL Baso # (Auto) (0-0.2) K/uL Immature Gran # (Auto) (0.00-0.02) K/uL Anisocytosis PT (9.0-12.0) Seconds INR (0.9-1.1) APTT (21.0-31.0) Seconds PTT Ratio Sodium (136-145) mmol/L Potassium (3.5-5.1) mmol/L Chloride (98-107) mmol/L Carbon Dioxide (21-32) mmol/L Anion Gap (3-11) BUN (7-18) mg/dl Creatinine (0.6-1.4) mg/dl Est Cr Clr Drug Dosing Est GFR ( Amer) Est GFR (Non-Af Amer) BUN/Creatinine Ratio (10-20) Glucose (70-99) mg/dl Calcium (8.5-10.1) mg/dl Total Bilirubin (0.2-1) mg/dl AST (15-37) U/L ALT (12-78) U/L Alkaline Phosphatase (45-117) U/L Total Protein (6.4-8.2) gm/dl Albumin (3.4-5.0) gm/dl Globulin (2.5-4.0) gm/dl Albumin/Globulin Ratio (0.9-2) Lipase (73-393) U/L Digoxin 0.1 L (0.8-2.0) ng/ml COVID-19 Eval Order Covid19 [facility] SARS-CoV-2, RNA, NAAT POSITIVE A* (NEGATIVE) 07/09/20 Range/Units 16:34 WBC (4.8-10.8) K/uL RBC (4.7-6.1) M/uL Hgb (14.0-18.0) g/dL Hct (42-52) % MCV (80-100) fL MCH (25-34) pg MCHC (32-36) g/dL RDW Std Deviation (36.4-46.3) fL RDW Coeff of Charo (11.5-14.5) % Plt Count (130-400) K/uL MPV (7.4-10.4) fL Immature Gran % (Auto) % Neut % (Auto) % Lymph % (Auto) % [place] % (Auto) % Eos % (Auto) % Baso % (Auto) % Neut # (Auto) (1.4-6.5) K/uL Lymph # (Auto) (1.2-3.4) K/uL [place] # (Auto) (0.11-0.59) K/uL Eos # (Auto) (0-0.5) K/uL Baso # (Auto) (0-0.2) K/uL Immature Gran # (Auto) (0.00-0.02) K/uL Anisocytosis PT (9.0-12.0) Seconds INR (0.9-1.1) APTT (21.0-31.0) Seconds PTT Ratio Sodium (136-145) mmol/L Potassium (3.5-5.1) mmol/L Chloride (98-107) mmol/L Carbon Dioxide (21-32) mmol/L Anion Gap (3-11) BUN (7-18) mg/dl Creatinine (0.6-1.4) mg/dl Est Cr Clr Drug Dosing Est GFR ( Amer) Est GFR (Non-Af Amer) BUN/Creatinine Ratio (10-20) Glucose (70-99) mg/dl Calcium (8.5-10.1) mg/dl Total Bilirubin (0.2-1) mg/dl AST (15-37) U/L ALT (12-78) U/L Alkaline Phosphatase (45-117) U/L Total Protein (6.4-8.2) gm/dl Albumin (3.4-5.0) gm/dl Globulin (2.5-4.0) gm/dl Albumin/Globulin Ratio (0.9-2) Lipase (73-393) U/L Digoxin (0.8-2.0) ng/ml COVID-19 Eval Order CovFluRsv at [facility] SARS-CoV-2, RNA, NAAT (NEGATIVE) Imaging Data Radiologist's Impression: US gallbladder HISTORY: 80 years-old Male ruq pain eval for cholecystitis acute right upper quadrant abdominal pain COMPARISON: CT abdomen and pelvis 05/08/2020 TECHNIQUE: Multiple real-time sonographic images of the abdominal right upper quadrant were obtained assessing grayscale appearance and color flow FINDINGS: The pancreas is mostly obscured by bowel gas, visualized portions appearing unremarkable. Heterogeneous appearance of the liver with marginal nodularity compatible with cirrhosis. Trace ascites. Layering cholelithiasis. The gallbladder wall measures the upper limits of normal at 3 mm. There is no significant gallbladder distention. Sonographic Méndez sign reported as positive. The common bile duct measures 8 mm, within normal limits for patient age. No intrahepatic biliary ductal dilation. The imaged right kidney is unremarkable without hydronephrosis. IMPRESSION: 1. Cholelithiasis is noted with the gallbladder wall measuring in the upper limits of normal at 3 mm. Additionally, the sonographic Méndez sign was reported as positive. Findings should be correlated clinically to exclude acute cholecystitis. 2. Cirrhosis with trace ascites. 3. No biliary ductal dilation. ACT 112: Negative or not required by law. The above report was generated using voice recognition software. It may contain grammatical, syntax or spelling errors. Electronically signed by: Avi Chin M.D. 07/09/2020 12:06 PM Dictated: 07/09/20 1204 Transcribed: 07/09/20 1204 XR chest 1V portable HISTORY: preop COMPARISON: Chest 05/08/2020. FINDINGS: The cardiac silhouette remains mildly enlarged. Progressive perihilar interstitial/vascular thickening consistent with mild pulmonary edema. No pneumothorax. Trace bilateral pleural effusions. IMPRESSION: Interval development of mild interstitial pulmonary edema and trace bilateral pleural effusions. ACT 112: Negative or not required by law. Electronically signed by: Ricardo Lim M.D. 07/09/2020 2:20 PM Dictated: 07/09/20 1418 Transcribed: 07/09/20 1418 ECG Data Attestation: I personally reviewed and interpreted this ECG as follows: Indication: + abdominal pain Rate (beats per minute): 95 Rhythm: + atrial fibrillation ECG [place]: + Left axis deviation ECG ST segments: + Nonspecific ST abnormalities ECG Findings: no PVCs Comparison ECG Date: from (May 22, 2020) Change: no significant change MDM Narrative I did evaluate the patient as noted above. The patient is presenting with clinical signs and symptoms concerning for acute cholecystitis. The patient was made NPO. I did treat him with IV morphine and Zofran. IV access was established. I did place an order for continuous cardiac monitoring. The monitor showed atrial fibrillation at a rate of 96 bpm. I did order and personally review the patient's 12-lead EKG as described above. He has atrial fibrillation without acute ischemic changes. He does have some nonspecific ST-T wave changes. I did order and personally reviewed the images of the patient's chest x-ray as described above. He has some development of mild interstitial pulmonary edema and trace bilateral pleural effusions. I did order a urine analysis. I did order and review the patient's blood work as noted in the electronic medical record. His white count is not elevated. Hemoglobin is 9.1. LFTs are unremarkable. Lipase is 73. Digoxin is 0.1. I did order an ultrasound of the right upper quadrant. I did review the images myself as well as the radiology report as described above. He does appear to have signs consistent with acute cholecystitis. I did discuss the test results with the patient. He is still nauseated and so was given Zofran 4 mg IV. I did consult Dr. Calix of surgery. I did order a rapid Covid screening test. This unfortun ately came back positive. Dr. Calix did see the patient in the emergency department. She recommended the patient be admitted to medicine for HIDA scanning and IV antibiotics. I did treat the patient with Zosyn IV. I did discuss the case with the hospitalist and corrections caseworker. Impression & Plan Acute cholecystitis, Atrial fibrillation, Anemia, COVID-19 Discharge Plan Visit Data Chief Complaint: Abdominal Pain Stated Complaint: LOWER ABD PAIN ED Provider: Sanket Thompson Discharge Problem: Acute cholecystitis, Atrial fibrillation, Anemia, COVID-19 Patient Disposition: Being Evaluated by Hospitalist Discharge Instructions Interventions: ED Discharge Assessment Last Done: 07/09/20 16:43 Forms Stand Alone Forms: My [facility] Prescriptions Prescriptions: No Action levalbuterol tartrate [Xopenex HFA] 45 mcg/actuation HFA aerosol inhaler 2 puffs INH QID PRN (Reason: Shortness Of Breath Or Wheezing) RF: 0 paroxetine HCl [Paxil] 20 mg tablet 20 mg PO DAILY RF: 0 tamsulosin 0.4 mg Capsule 0.4 mg PO DAILY RF: 0 ferrous sulfate 325 mg (65 mg iron) Tablet 325 mg PO DAILY RF: 0 losartan 25 mg Tablet 25 mg PO DAILY RF: 0 Gaviscon Extra Strength 160-105 mg Tablet,Chewable 1 tab PO QID PRN (Reason: .) RF: 0 Visine Tears 1-0.2-0.2 % Drops 2 drp OPR QID RF: 0 thiamine mononitrate (vit B1) 100 mg Tablet 100 mg PO DAILY RF: 0 folic acid 1 mg Tablet 1 mg PO QAM RF: 0 metformin 500 mg Tablet 500 mg PO HS RF: 0 nitroglycerin [Nitrostat] 0.4 mg Tablet, Sublingual 0.4 mg Sublingual UD PRN (Reason: Chest Pain) RF: 0 lactulose 10 gram/15 mL Solution 30 ml PO BID RF: 0 diltiazem HCl 180 mg Capsule,Extended Release 24hr 180 mg PO QAM RF: 0 acetaminophen-codeine 300-30 mg Tablet 2 tab PO TID PRN (Reason: Pain) RF: 0 fluticasone propion-salmeterol [Wixela Inhub] 100-50 mcg/dose Blister With Device 1 inh INHALATION BID RF: 0 digoxin 250 mcg (0.25 mg) Tablet 250 mcg PO DAILY RF: 0 Xifaxan 550 mg Tablet 550 mg PO BID RF: 0 Lupron Depot (3 month) 22.5 mg Syringe Kit 22.5 mg IM UD RF: 0 sucralfate [Carafate] 1 gram tablet 1 g PO TID 56 Days Qty: 168 RF: 0 pantoprazole 40 mg Tablet,Delayed Release (Dr/Ec) 40 mg PO BID 56 Days Qty: 112 RF: 0 dicyclomine 20 mg Tablet 20 mg PO BID RF: 0 cyanocobalamin (vitamin B-12) 500 mcg Tablet 500 mcg PO DAILY RF: 0 Referrals Referrals: Cortez BOND [Primary Care Provider] -
[2020-07-09 11:22] LABS: Basophils # (auto) 0.04 K/uL (0-0.2); Basophils % (auto) 0.6 %; Eosinophils # (auto) 0.05 K/uL (0-0.5); Eosinophils % (auto) 0.8 %; Hematocrit (blood only) 27.8 % (42-52); Hemoglobin 9.1 g/dL (14.0-18.0); Immature Granulocytes # (auto) 0.01 K/uL (0.00-0.02); Immature Granulocytes % (auto) 0.2 %; Lymphocytes # (auto) 1.04 K/uL (1.2-3.4); Lymphocytes % (auto) 16.5 %; Mean Corpuscular Hemoglobin 32.6 pg (25-34); Mean Corpuscular Hgb Conc 32.7 g/dL (32-36); Mean Corpuscular Volume 99.6 fL (80-100); Mean Platelet Volume 10.8 fL (7.4-10.4); Monocytes # (auto) 0.38 K/uL (0.11-0.59); Neutrophils # (auto) 4.78 K/uL (1.4-6.5); Neutrophils % (auto) 75.9 %; Platelet Count 145 K/uL (130-400); RDW Coefficient of Variation 20.1 % (11.5-14.5); RDW Standard Deviation 72.6 fL (36.4-46.3); Red Blood Count 2.79 M/uL (4.7-6.1)
[2020-07-09 11:47] LABS: Alanine Aminotransferase 15 U/L (12-78); Albumin Level 2.7 gm/dl (3.4-5.0); Aspartate Aminotransferase 21 U/L (15-37); BUN Creatinine Ratio 12.5 (10-20); Blood Urea Nitrogen 11 mg/dl (7-18); Calcium 9.7 mg/dl (8.5-10.1); Carbon Dioxide 25 mmol/L (21-32); Chloride 109 mmol/L (98-107); Est GFR (African American) 96.3; Est GFR (Non-African American) 83.1; Glucose 110 mg/dl (70-99); Lipase 73 U/L (73-393); Potassium 3.9 mmol/L (3.5-5.1); Sodium 140 mmol/L (136-145)
[2020-07-09 11:50] LABS: Albumin Globulin Ratio 0.7 (0.9-2); Alkaline Phosphatase 132 U/L (45-117); Bilirubin,Total 1.1 mg/dl (0.2-1); Total Protein 6.7 gm/dl (6.4-8.2)
--- NOTE | 2020-07-09 12:08 | Ultrasound Report ---
US gallbladder HISTORY: 80 years-old Male ruq pain eval for cholecystitis acute right upper quadrant abdominal pain COMPARISON: CT abdomen and pelvis 05/08/2020 TECHNIQUE: Multiple real-time sonographic images of the abdominal right upper quadrant were obtained assessing grayscale appearance and color flow FINDINGS: The pancreas is mostly obscured by bowel gas, visualized portions appearing unremarkable. Heterogeneo us appearance of the liver with marginal nodularity compatible with cirrhosis. Trace ascites. Layerin g cholelithiasis. The gallbladder wall measures the upper limits of normal at 3 mm. There is no signi ficant gallbladder distention. Sonographic Méndez sign reported as positive. The common bile duct measures 8 mm, within normal limits for patient age. No intrahepatic biliary sabine bo dilation. The imaged right kidney is unremarkable without hydronephrosis. IMPRESSION: 1. Cholelithiasis is noted with the gallbladder wall measuring in the upper limits of normal at 3 mm. Additionally, the sonographic Méndez sign was reported as positive. Findings should be correlated cl inically to exclude acute cholecystitis. 2. Cirrhosis with trace ascites. 3. No biliary ductal dilation. ACT 112: Negative or not required by law. The above report was generated using voice recognition software. It may contain grammatical, syntax o r spelling errors. Electronically signed by: Avi Chin M.D. 07/09/2020 12:06 PM
[2020-07-09 13:16] LABS: Anisocytosis Present
[2020-07-09 13:54] LABS: INR 1.1 (0.9-1.1); Partial Thromboplastin Time 27.1 Seconds (21.0-31.0); Prothrombin Time 10.8 Seconds (9.0-12.0)
--- NOTE | 2020-07-09 14:12 | Electrocardiogram Report ---
Test Reason : Blood Pressure : / mmHG Vent. Rate : 095 BPM Atrial Rate : 078 BPM P-R Int : 000 ms QRS Dur : 126 ms QT Int : 384 ms P-R-T Axes : 000 -52 098 degrees QTc Int : 482 ms Atrial fibrillation Left axis deviation Left bundle branch block Marked ST abnormality, possible anterior subendocardial injury Abnormal ECG When compared with ECG of 22-MAY-2020 01:24, QRS duration has increased T wave inversion less evident in Anterolateral leads Confirmed by Stanislaw Coyle ([id number]) on 07/09/2020 2:11:52 PM Referred By: Cortez BOND Confirmed By:Kevin Coyle
--- NOTE | 2020-07-09 14:21 | XRay Report ---
XR chest 1V portable HISTORY: preop COMPARISON: Chest 05/08/2020. FINDINGS: The cardiac silhouette remains mildly enlarged. Progressive perihilar interstitial/vascular thickening consistent with mild pulmonary edema. No pneumothorax. Trace bilateral pleural effusions. IMPRESSION: Interval development of mild interstitial pulmonary edema and trace bilateral pleural effusions. ACT 112: Negative or not required by law. Electronically signed by: Ricardo Lim M.D. 07/09/2020 2:20 PM
[2020-07-09] MEDS ORDERED: PIPERACILL/TAZOBAC CONSULT ACTIVE PRN (14:35)
[2020-07-09] MEDS ORDERED: PIPERACILLIN/TAZOBACTAM 4.5 GM/120 ML BAG IV ONE (14:35)
--- NOTE | 2020-07-09 14:44 | Surgery Consultation ---
Date of Consultation July 09, 2020 Assessment & Plan (1) Cirrhosis: Meld score 8. Child's B - 30% mortality from surgical procedure. Discussed with pt. Present on Admission?: Yes (2) Cholelithiasis: Rule out acute cholecystitis. Persistent symptoms but normal wbc ct, minimal wall thickening on US. Prior imaging has also shown trace pericholecystic fluid. Given recent pos test for covid, would prefer to treat nonoperatively for now. Bowel rest, IV antibiotics. Consider HIDA scan to rule out acute cholecystitis but this is not as accurate in presence of liver dysfunction. If worsens, will need lap cholecystectomy - risks discussed with him including bleeding, infection, conversion to open, , bile leak all discussed with pt. consent was signed (prior to covid results). Present on Admission?: Yes (3) Lab test positive for detection of COVID-19 virus: management as per medicine. Present on Admission?: Yes History of Present Illness Reason for Consultation: gallbladder disease Requesting Physician: Sanket Thompson MD History of Present Illness 80 yr old prisoner recently admitted to [facility] in early May for UGIB in setting of cirrhoisis, coumadin use for a fib. At that time, he was diagnosed with gallstones also. EGD showed a large ulcer eroding into GDA, coumadin was stopped. He notes right upper quadrant pain going on for many years but worse since last Sunday. In the past, has managed the pain by watching his diet. Since Sunday, has noted 12/10 right upper quadrant pain, no radiation, associated with nausea and vomiting. He has only been able to keep down water. No fevers/ chills. No change in bowel habits, no diarrhea/ constipation. As pain persisted, came to ER for evaluation. Pain meds do relieve the pain but do not last long. Has long standing cirrhosis, over 40 yrs. Never needed paracentesis for ascites, has had encephalopathy in the past. After examining pt, his covid test came back positive. Allergies Allergy/AdvReac Type Severity Reaction Status Date / Time doxazosin [From Cardura] Allergy Unknown Unknown Unverified 07/09/20 11:55 prazosin [From Minipress] Allergy Unknown Unknown Unverified 07/09/20 11:55 Home Medications Medication Instructions Recorded Confirmed Type folic acid 1 mg PO QAM 06/12/18 07/09/20 History lactulose 30 ml PO BID 06/12/18 07/09/20 History metformin 500 mg PO HS 06/12/18 07/09/20 History nitroglycerin [Nitrostat] 0.4 mg SUBLINGUAL UD PRN 06/12/18 07/09/20 History diltiazem HCl 180 mg PO QAM 12/06/18 07/09/20 History tamsulosin 0.4 mg PO DAILY 02/06/19 07/09/20 History levalbuterol tartrate 45 2 puffs INH QID PRN 04/08/19 07/09/20 History mcg/actuation aerosol inhaler paroxetine HCl 20 mg tablet 20 mg PO DAILY 05/04/20 07/09/20 History Lupron Depot (3 month) 22.5 mg IM UD 05/08/20 07/09/20 History Xifaxan 550 mg PO BID 05/08/20 07/09/20 History acetaminophen-codeine 2 tab PO TID PRN 05/08/20 07/09/20 History digoxin 250 mcg PO DAILY 05/08/20 07/09/20 History fluticasone propion-salmeterol 1 inh INHALATION BID 05/08/20 07/09/20 History [Wixela Inhub] pantoprazole 40 mg PO BID 56 Days #112 tab 05/11/20 07/09/20 Rx sucralfate [Carafate] 1 g PO TID 56 Days #168 tab 05/11/20 07/09/20 Rx cyanocobalamin (vitamin B-12) 500 mcg PO DAILY 05/22/20 07/09/20 History dicyclomine 20 mg PO BID 05/22/20 07/09/20 History aluminum hydrox-magnesium carb 1 tab PO QID PRN 07/09/20 07/09/20 History [Gaviscon Extra Strength] ferrous sulfate 325 mg PO DAILY 07/09/20 07/09/20 History losartan 25 mg PO DAILY 07/09/20 07/09/20 History peg [id number] 2 drp OPR QID 07/09/20 07/09/20 History [Visine Tears] thiamine mononitrate (vit B1) 100 mg PO DAILY 07/09/20 07/09/20 History Patient History Medical History Allergic rhinitis Anemia Anxiety Atrial fibrillation Bone lesion BPH (benign prostatic hyperplasia) Cataract Bilateral cataracts - had surgery on both eyes; Chronic back pain Chronic pulmonary embolism Cirrhosis Depressive disorder Diabetes mellitus, type 2 Diastolic dysfunction DVT (deep venous thrombosis) GERD (gastroesophageal reflux disease) H/O: CVA (cerebrovascular accident) HTN (hypertension) Incarcerated umbilical hernia Osteoarthritis Peptic ulcer disease Presence of IVC filter Prostate cancer Sciatica Streptococcal bacteremia Thrombocytopenia Tobacco abuse Tremor Surgical History H/O right knee surgery History of appendectomy History of cataract surgery left. 12/2018. 2mg versed. History of cataract surgery Family History Mother , in her 80s Myocardial infarction Stroke Father , in her 60s Myocardial infarction Sister No problems noted. Sister No problems noted. Sister No problems noted. Son No problems noted. Son No problems noted. Son No problems noted. Son No problems noted. Son No problems noted. Daughter No problems noted. Daughter No problems noted. Daughter No problems noted. Daughter No problems noted. Daughter No problems noted. Daughter Unknown family medical history Other Family history non-contributory Social History Smoking Status: Former smoker Tobacco Type: Cigarettes Age Started Using Tobacco: 11; Cigarettes Per Day: 20; Second Hand Exposure: No; Hx Alcohol Use: No Hx Substance Use: No Preferred Language: Lithuanian Communication Ability: Effective Visual Impairment: No Limitations Hearing Ability: Normal Ibm Bpm Architect Required: No Beliefs That Will Affect Care: None marital status: Single Current Living Situation: Other Current Living Situation Comment: [facility] current occupational status: unemployed Feels Safe at Home: Yes caffeine: Yes (2 cups/day) during the past year weight has: remained stable Assistive Devices: None Review of Systems Review of Systems: All systems reviewed & are unremarkable except as noted in Subjective Physical Exam Constitutional: well developed and well nourished Eyes: PERRL, conjunctivae normal, anicteric sclerae ENMT: external ear and nose normal, oropharynx normal Respiratory: normal respiratory effort and + audible wheezes (left upper lobe); no respiratory distress Cardiovascular: Rate/Rhythm: + irregularly irregular Vessels: no JVD Gastrointestinal (Abdomen): Inspection/Auscultation: abdomen normal to inspection and normal bowel sounds; abdomen not distended Percussion/Palpation: + abdomen tender (RUQ with guarding); no hernia Musculoskeletal: Head/Neck/Chest: normocephalic and head atraumatic Neurologic: CN's II-XI intact bilaterally and awake; no focal motor deficits Psychiatric: A+Ox3, euthymic affect Results & Data ([facility]) Vital Signs (Past 12 Hours) Vital Signs Temp Pulse Resp BP Pulse Ox 07/09/20 14:01 99 H 21 95 07/09/20 14:00 103 H 21 184/114 H 95 07/09/20 13:31 101 H 21 95 07/09/20 13:30 99 H 22 170/102 H 94 07/09/20 13:01 92 H 22 95 07/09/20 13:00 96 H 24 173/105 H 97 07/09/20 12:51 90 23 174/101 H 96 07/09/20 12:31 100 H 20 93 07/09/20 12:30 90 19 173/107 H 94 07/09/20 12:17 97 H 20 93 07/09/20 10:36 36.4 C L 100 H 20 183/92 H 97 Laboratory Results Abnormal lab results 07/09/20 07/09/20 07/09/20 Range/Units 11:05 11:05 14:08 RBC 2.79 L (4.7-6.1) M/uL Hgb 9.1 L (14.0-18.0) g/dL Hct 27.8 L (42-52) % RDW Std Deviation 72.6 H (36.4-46.3) fL RDW Coeff of Charo 20.1 H (11.5-14.5) % MPV 10.8 H (7.4-10.4) fL Lymph # (Auto) 1.04 L (1.2-3.4) K/uL Chloride 109 H (98-107) mmol/L Glucose 110 H (70-99) mg/dl Total Bilirubin 1.1 H (0.2-1) mg/dl Alkaline Phosphatase 132 H (45-117) U/L Albumin 2.7 L (3.4-5.0) gm/dl Albumin/Globulin Ratio 0.7 L (0.9-2) SARS-CoV-2, RNA, NAAT POSITIVE A* (NEGATIVE) Diagnostic Findings RUQ U/S: FINDINGS: The pancreas is mostly obscured by bowel gas, visualized portions appearing unremarkable. Heterogeneous appearance of the liver with marginal nodularity compatible with cirrhosis. Trace ascites. Layering cholelithiasis. The gallbladder wall measures the upper limits of normal at 3 mm. There is no significant gallbladder distention. Sonographic Méndez sign reported as positive. The common bile duct measures 8 mm, within normal limits for patient age. No intrahepatic biliary ductal dilation. The imaged right kidney is unremarkable without hydronephrosis. IMPRESSION: 1. Cholelithiasis is noted with the gallbladder wall measuring in the upper limits of normal at 3 mm. Additionally, the sonographic Méndez sign was reported as positive. Findings should be correlated clinically to exclude acute cholecystitis. 2. Cirrhosis with trace ascites. 3. No biliary ductal dilation. (1) Cirrhosis Ascites presence: with ascites Hepatic cirrhosis type: alcoholic cirrhosis Qualified Code(s): K70.31 - Alcoholic cirrhosis of liver with ascites
--- NOTE | 2020-07-09 16:19 | History & Physical Report ---
Date of Service July 09, 2020 Assessment & Plan (1) Abdominal pain: Secondary to acute cholecystitis as mentioned below (2) Cholelithiasis: Pt is 80 y/o M with PMH cirrhosis, recurrent UTI, ESBL UTI, a-fib off Coumadin, diastolic dysfunction, DM II, GERD, BPH, gallstones, GI bleed, profound anemia with recent [facility] hospitalization 05/22/20 and transfer to [facility] S/P PRBC, Platelet, FFP transfusion and IR of gastric artery presented to ER for abdominal pain x 2 days. Was to have elective cholecystectomy secondary to gallstones In ER pt afebrile, no leukocytosis US gallbladder: gallbladder wall measuring in the upper limits of normal at 3 mm. sonographic Méndez sign was reported as positive, No biliary ductal dilation. In ER received morphine, Zofran, Zosyn We continued Zosyn NPO Gentle IV fluids for now need for any signs of fluid overload or desensitization, Lasix should be given and discontinue IV fluid General surgery consultation, saw pt in ER. Recommend conservative measures at this time, and consideration to cholecystectomy if symptoms worsen CBC, CMP in am COVID 19-repeat test is positive for Covid 19 Negative COVID 19 testing today at the facility before come to the emergency room. Denies respiratory symptoms. No known contact Covid test in the ER is positive-we will repeat the Covid test before taking any further consideration of treatment Isolation precautions Will not start any remdesivir and dexamethasone given asymptomatic and has not been requiring any oxygen to maintain saturation Convalescent plasma should not be given likely due to fluid overload with the chest x-ray finding of possible pulmonary edema Anemia: H/H: 02/07. Hgb: 7.8 on 06/01/20 H/O GI bleed from gastric ulcer on 05/22/20 requiring transfer to [facility] for IR. Requ ired 7 units PRBCs, 4FFP, 2Plt No pharmacologic anticoagulation for now Monitor H&H Cirrhosis Continue xifaxan, lactulose Atrial Fibrillation Rate controlled Digoxin level: 0.1 Continue digoxin, Diltazem He has not been on any anticoagulation due to GI bleed HTN Hypertensive in ER Dose hydralazine given Monitor BP Continue Diltazem, losartan DM II A1c was 5.3 in 04/2020 Hold metformin Insulin sliding scale per protocol H/O Recurrent UTI's. H/O ESBL UTI urine culture pending H/O Prostate CA On Lupron DVT Prophylaxis -SCDs Follows with Dr at [facility] [place] for routine care Chart review completed by Margret Hernandez. Care coordinated with Dr Munoz. The H&P has been amended thoroughly. Dr Allyn Munoz History of Present Illness Chief Complaint: Abdominal pain Primary Care Provider: RONDA Toro Pt is 80 y/o M with PMH cirrhosis, recurrent UTI, ESBL UTI, a-fib off Coumadin, diastolic dysfunction, DM II, GERD, BPH, gallstones, GI bleed, profound anemia with recent [facility] hospitalization 05/22/20 and transfer to [facility] S/P PRBC, Platelet, FFP transfusion and IR of gastric artery presented to ER for abdominal pain x 2 days. Is to have elective cholecystectomy secondary to gallstones. He has been complaining of upper abdominal pain for the last 3 days associated with some nausea but no vomiting and diarrhea anorexia. Denies any fever and/or chills. Denies any cough, chest pain or shortness of breath. He has a history of cholelithiasis and in the ER ultrasound did show acute cholecystitis. He had a Covid test done at the facility before coming to the emergency room which is negative. Surgery was consulted and he was readmitted to medical floor for continuation of care. Further HPI, ROS per Dr Munoz Allergies Allergy/AdvReac Type Severity Reaction Status Date / Time doxazosin [From Cardura] Allergy Unknown Unknown Unverified 07/09/20 11:55 prazosin [From Minipress] Allergy Unknown Unknown Unverified 07/09/20 11:55 Home Medications Medication Instructions Recorded Confirmed Type folic acid 1 mg PO QAM 06/12/18 07/09/20 History lactulose 30 ml PO BID 06/12/18 07/09/20 History metformin 500 mg PO HS 06/12/18 07/09/20 History nitroglycerin [Nitrostat] 0.4 mg SUBLINGUAL UD PRN 06/12/18 07/09/20 History diltiazem HCl 180 mg PO QAM 12/06/18 07/09/20 History tamsulosin 0.4 mg PO DAILY 02/06/19 07/09/20 History levalbuterol tartrate 45 2 puffs INH QID PRN 04/08/19 07/09/20 History mcg/actuation aerosol inhaler paroxetine HCl 20 mg tablet 20 mg PO DAILY 05/04/20 07/09/20 History Lupron Depot (3 month) 22.5 mg IM UD 05/08/20 07/09/20 History Xifaxan 550 mg PO BID 05/08/20 07/09/20 History acetaminophen-codeine 2 tab PO TID PRN 05/08/20 07/09/20 History digoxin 250 mcg PO DAILY 05/08/20 07/09/20 History fluticasone propion-salmeterol 1 inh INHALATION BID 05/08/20 07/09/20 History [Wixela Inhub] pantoprazole 40 mg PO BID 56 Days #112 tab 05/11/20 07/09/20 Rx sucralfate [Carafate] 1 g PO TID 56 Days #168 tab 05/11/20 07/09/20 Rx cyanocobalamin (vitamin B-12) 500 mcg PO DAILY 05/22/20 07/09/20 History dicyclomine 20 mg PO BID 05/22/20 07/09/20 History aluminum hydrox-magnesium carb 1 tab PO QID PRN 07/09/20 07/09/20 History [Gaviscon Extra Strength] ferrous sulfate 325 mg PO DAILY 07/09/20 07/09/20 History losartan 25 mg PO DAILY 07/09/20 07/09/20 History peg [id number] 2 drp OPR QID 07/09/20 07/09/20 History [Visine Tears] thiamine mononitrate (vit B1) 100 mg PO DAILY 07/09/20 07/09/20 History Past Med/Surg History Medical History Allergic rhinitis Anemia Anxiety Atrial fibrillation Bone lesion BPH (benign prostatic hyperplasia) Cataract Bilateral cataracts - had surgery on both eyes; Chronic back pain Chronic pulmonary embolism Cirrhosis Depressive disorder Diabetes mellitus, type 2 Diastolic dysfunction DVT (deep venous thrombosis) GERD (gastroesophageal reflux disease) H/O: CVA (cerebrovascular accident) HTN (hypertension) Incarcerated umbilical hernia Osteoarthritis Peptic ulcer disease Presence of IVC filter Prostate cancer Sciatica Streptococcal bacteremia Thrombocytopenia Tobacco abuse Tremor Surgical History H/O right knee surgery History of appendectomy History of cataract surgery left. 12/2018. 2mg versed. History of cataract surgery Family History (Updated 07/09/20 @ 16:49 by Margret Hernandez PA-C) Mother , in her 80s Myocardial infarction Stroke Father , in her 60s Myocardial infarction Other Family history non-contributory Social History Smoking Status: Former smoker Tobacco Type: Cigarettes Age Started Using Tobacco: 11; Cigarettes Per Day: 20; Second Hand Exposure: No; Hx Alcohol Use: No Hx Substance Use: No Preferred Language: Nepalese Communication Ability: Effective Visual Impairment: No Limitations Hearing Ability: Normal Screen Printing Supervisor Required: No Beliefs That Will Affect Care: None marital status: Single Current Living Situation: Other Current Living Situation Comment: [facility] current occupational status: unemployed Feels Safe at Home: Yes caffeine: Yes (2 cups/day) during the past year weight has: remained stable Assistive Devices: None Review of Systems Review of Systems: All systems reviewed & are unremarkable except as noted in HPI & below Physical Exam Physical Exam: Lying in bed with the moderate distress due to abdominal pain and nausea Constitutional: well developed, well nourished and + ill appearing Eyes: PERRL, conjunctivae normal, anicteric sclerae ENMT: external ear and nose normal, oropharynx normal Neck: trachea midline, no thyromegaly Respiratory: no respiratory distress Auscultation: lungs clear to auscultation bilaterally Cardiovascular: Rate/Rhythm: regular rate and regular rhythm Heart Sounds: no murmur Extremities: no edema Gastrointestinal (Abdomen): Inspection/Auscultation: abdomen not distended Percussion/Palpation: + abdomen tender (Right upper quadrant with positive Méndez sign) and abdomen soft; no guarding Musculoskeletal: No acute arthritis involving any joint Neurologic: Alert, awake and oriented x3. No focal sensory and motor deficit appreciated Lymphatic: no cervical or axillary lymphadenopathy Results & Data Results & Data ([facility]) Vital Signs (Past 12 Hours) Vital Signs Temp Pulse Resp BP Pulse Ox 07/09/20 14:01 99 H 21 95 07/09/20 14:00 103 H 21 184/114 H 95 07/09/20 13:31 101 H 21 95 07/09/20 13:30 99 H 22 170/102 H 94 07/09/20 13:01 92 H 22 95 07/09/20 13:00 96 H 24 173/105 H 97 07/09/20 12:51 90 23 174/101 H 96 07/09/20 12:31 100 H 20 93 07/09/20 12:30 90 19 173/107 H 94 07/09/20 12:17 97 H 20 93 07/09/20 10:36 36.4 C L 100 H 20 183/92 H 97 Laboratory Results Short CBC 07/09/20 Range/Units 11:05 WBC 6.30 (4.8-10.8) K/uL Hgb 9.1 L (14.0-18.0) g/dL Hct 27.8 L (42-52) % Plt Count 145 (130-400) K/uL BMP 07/09/20 11:05 Sodium 140 Potassium 3.9 Chloride 109 H Carbon Dioxide 25 BUN 11 Creatinine 0.86 Glucose 110 H Calcium 9.7 Liver Function 07/09/20 Range/Units 11:05 Total Bilirubin 1.1 H (0.2-1) mg/dl AST 21 (15-37) U/L ALT 15 (12-78) U/L Alkaline Phosphatase 132 H (45-117) U/L Albumin 2.7 L (3.4-5.0) gm/dl Diagnostic Findings CXR: IMPRESSION: Interval development of mild interstitial pulmonary edema and trace bilateral p leural effusions. GALLBLADDER US: IMPRESSION: 1. Cholelithiasis is noted with the gallbladder wall measuring in the upper limits of normal at 3 mm. Additionally, the sonographic Méndez sign was reported as positive. Findings should be correlated clinically to exclude acute cholecystitis. 2. Cirrhosis with trace ascites. 3. No biliary ductal dilation. Code Status & VTE Plan VTE Prophylaxis Plan VTE Prophylaxis will be ordered: Yes (1) Abdominal pain Abdominal location: right upper quadrant Qualified Code(s): R10.11 - Right upper quadrant pain
[2020-07-09] MEDS ORDERED: hydrALAZINE HCL 20 MG/ML VIAL IV STA (16:20)
[2020-07-09] MEDS ORDERED: PATIENT'S HEIGHT AND/OR WEIGHT NEEDED SCH (16:30)
[2020-07-09 17:22] LABS: Influenza A virus by PCR Negative (Neg); Influenza B virus by PCR Negative (Neg); RSV by PCR Negative (Neg); SARS CoV2 RNA(COVID-19) InHosp POSITIVE (Negative)
[2020-07-09] MEDS ORDERED: hydrALAZINE HCL 20 MG/ML VIAL IV PRN (17:58)
[2020-07-09] MEDS ORDERED: FUROSEMIDE 40 MG/4 ML VIAL IV STA (18:05)
[2020-07-09] MEDS ORDERED: INSULIN ASPART 100 UNITS/ML 3 ML PEN SC SCH (18:05)
[2020-07-09] MEDS ORDERED: ONDANSETRON INJ 2 MG/ML 2 ML VIAL IV PRN (18:05)
[2020-07-09] MEDS ORDERED: ACETAMINOPHEN 325 MG TAB PO PRN (18:05)
[2020-07-09] MEDS ORDERED: LEVALBUTEROL TARTRATE 15 GM HFA.AER.AD INH PRN (18:05)
[2020-07-09] MEDS ORDERED: NITROGLYCERIN SL 0.4 MG/TAB TAB SL PRN (18:05)
[2020-07-09] MEDS ORDERED: GLUCAGON FOR INJ 1 MG VIAL SQ PRN (18:05)
[2020-07-09] MEDS ORDERED: GLUCOSE 40% GEL 15 GM TUBE PO PRN (18:05)
[2020-07-09] MEDS ORDERED: DEXTROSE 50% 50 ML SYRINGE IV PRN (18:05)
[2020-07-09] MEDS ORDERED: GLUCOSE 10 TABS/TUBE PO PRN (18:05)
[2020-07-09] MEDS ORDERED: CARBOHYDRATES FOR HYPOGLYCEMIA PO PRN (18:05)
[2020-07-09] MEDS: MoRPHine SULFATE 4 MG/ML 1 ML CARP\\VIAL IV PRN ×2 (18:07→22:22)
[2020-07-09] MEDS ORDERED: PIPERACILL/TAZOBAC CONSULT ACTIVE SCH (18:20)
[2020-07-09] MEDS ORDERED: FUROSEMIDE 40 MG in SYRINGE 0 ML IV ONE (18:30)
[2020-07-09] MEDS: PIPERACILLIN/TAZOBACTAM 3.375 GM in DEXTROSE 5% 100 ML IV SCH (20:07)
[2020-07-09] MEDS: DICYCLOMINE HCL 20 MG TAB PO SCH (20:24)
[2020-07-09] MEDS: LACTULOSE SYRUP 20 GM/30 ML UDC PO SCH (20:24)
[2020-07-09] MEDS: rifAXIMin 550 MG TABLET PO SCH (20:27)
[2020-07-09] MEDS ORDERED: Nursing to Pharmacy Communication SCH (20:30)
[2020-07-09] MEDS: HYDROmorphone INJ 0.5 MG/0.5 ML SYR IV PRN ×2 (20:36→23:55)
[2020-07-09] MEDS: ARTIFICIAL TEARS OP SCH (21:36)
[2020-07-09 23:03] LABS: Appearance Urine Clear (Clear); Bacteria Urine Automated Negative (Negative); Bilirubin Urine Negative (Negative); Blood Urine Negative (Negative); Color Urine Yellow; Epithelial Cell Urine Auto 0-5 /lpf (0-5); Glucose Urine UA Negative (Negative); Ketones Urine Negative (Negative); Leukocyte Esterase Urine 2+ (Negative); Nitrite Urine Negative (Negative); Protein Urine Negative (Negative); RBC Urine Automated 0-4 /hpf (0-4); Specific Gravity Urine 1.009 (1.000-1.030); Urobilinogen Urine Negative (Negative); WBC Urine Automated >30 /hpf (0-5); pH Urine 7.5 (4.5-7.5)
[2020-07-10] MEDS: INSULIN ASPART 100 UNITS/ML 3 ML PEN SC SCH ×5 (00:12→21:10)
[2020-07-10] MEDS: MoRPHine SULFATE 4 MG/ML 1 ML CARP\\VIAL IV PRN ×2 (03:23→08:46)
[2020-07-10] MEDS: PIPERACILLIN/TAZOBACTAM 3.375 GM in DEXTROSE 5% 100 ML IV SCH ×3 (03:25→20:44)
[2020-07-10] MEDS: HYDROmorphone INJ 0.5 MG/0.5 ML SYR IV PRN ×3 (05:53→20:41)
[2020-07-10 07:22] LABS: Basophils # (auto) 0.05 K/uL (0-0.2); Basophils % (auto) 0.7 %; Eosinophils # (auto) 0.08 K/uL (0-0.5); Hematocrit (blood only) 28.3 % (42-52); Hemoglobin 9.2 g/dL (14.0-18.0); Immature Granulocytes # (auto) 0.02 K/uL (0.00-0.02); Immature Granulocytes % (auto) 0.3 %; Lymphocytes # (auto) 0.96 K/uL (1.2-3.4); Lymphocytes % (auto) 12.6 %; Mean Corpuscular Hemoglobin 32.1 pg (25-34); Mean Corpuscular Hgb Conc 32.5 g/dL (32-36); Mean Corpuscular Volume 98.6 fL (80-100); Mean Platelet Volume 10.6 fL (7.4-10.4); Monocytes # (auto) 0.55 K/uL (0.11-0.59); Monocytes % (auto) 7.2 %; Neutrophils # (auto) 5.96 K/uL (1.4-6.5); Neutrophils % (auto) 78.2 %; Platelet Count 149 K/uL (130-400); RDW Coefficient of Variation 20.1 % (11.5-14.5); RDW Standard Deviation 72.9 fL (36.4-46.3); Red Blood Count 2.87 M/uL (4.7-6.1); White Blood Count 7.62 K/uL (4.8-10.8)
[2020-07-10 07:53] LABS: Albumin Level 2.6 gm/dl (3.4-5.0); Calcium 9.4 mg/dl (8.5-10.1); Creatinine Clr Calc Pharmacy 66.2 ml/min; Est GFR (African American) 85.2; Est GFR (Non-African American) 73.6; Potassium 3.8 mmol/L (3.5-5.1)
[2020-07-10 07:56] LABS: Albumin Globulin Ratio 0.7 (0.9-2); Bilirubin,Total 1.4 mg/dl (0.2-1); Globulin 3.8 gm/dl (2.5-4.0); Total Protein 6.4 gm/dl (6.4-8.2)
[2020-07-10 08:11] LABS: Anisocytosis Present
[2020-07-10] MEDS: ARTIFICIAL TEARS OP SCH ×4 (08:49→20:45)
[2020-07-10] MEDS: dilTIAZem HCL 180 MG CAPCR PO SCH (08:50)
[2020-07-10] MEDS: FLUTICASONE/VILANTEROL 100/25MCG 14 PUFFS/INHALER INH SCH (08:50)
[2020-07-10] MEDS: DICYCLOMINE HCL 20 MG TAB PO SCH ×2 (08:50→20:46)
[2020-07-10] MEDS: TAMSULOSIN HCL 0.4 MG CAP PO SCH (08:51)
[2020-07-10] MEDS: LACTULOSE SYRUP 20 GM/30 ML UDC PO SCH ×4 (08:51→20:49)
[2020-07-10] MEDS: PARoxetine HCL 20 MG TAB PO SCH (08:51)
[2020-07-10] MEDS: LOSARTAN POTASSIUM 25 MG TAB PO SCH (08:51)
[2020-07-10] MEDS: rifAXIMin 550 MG TABLET PO SCH ×2 (08:52→20:45)
[2020-07-10] MEDS: CYANOCOBALAMIN 500 MCG TABLET (VITAMIN B-12) PO SCH (08:52)
[2020-07-10] MEDS ORDERED: FERROUS SULFATE 325 MG TAB PO SCH (09:00)
[2020-07-10] MEDS ORDERED: PANTOprazole 40 MG in SYRINGE 0 ML IV SCH (11:00)
--- NOTE | 2020-07-10 12:12 | Surgery Progress Note ---
Date of Service July 10, 2020 Assessment & Plan (1) Acute cholecystitis: Appears to be responding to IV abx. WBC ct remains normal, no worsening signs/ symptoms on clinical exam. LFT's show mild increase in alk phos, t. bili 1.4, ast/ alt normal. Will continue to try to treat conservatively given active covid 19 infection. If worsens, will plan on lap sera. Present on Admission?: Yes (2) COVID-19: management as per medicine Admission and Anticipated Discharge Date Admission Date: July 09, 2020 Subjective Overall feels OK. Still complains of pain at times. Not hungry but no nausea or vomiting. Repeat covid test returned positive. Review of Systems Respiratory: CXR shows mild pulmonary edema, nurse reports oxygenation drifts low at times but recovers quickly Physical Exam Gastrointestinal (Abdomen): Inspection/Auscultation: abdomen normal to inspection and normal bowel sounds; abdomen not distended Percussion/Palpation: + abdomen tender (RUQ but less than yesterday) and abdomen soft; no guarding Results & Data ([facility]) Vital Signs (Past 12 Hours) Vital Signs Temp Pulse Pulse Resp BP Pulse Ox 07/10/20 11:47 36.5 C 105 H 18 119/76 92 07/10/20 08:04 36.6 C 102 H 18 159/89 H 93 07/10/20 08:00 107 H 07/10/20 01:58 94 H Laboratory Results Abnormal lab results 07/09/20 07/09/20 07/09/20 Range/Units 11:05 14:08 14:19 RBC (4.7-6.1) M/uL Hgb (14.0-18.0) g/dL Hct (42-52) % RDW Std Deviation (36.4-46.3) fL RDW Coeff of Charo (11.5-14.5) % MPV (7.4-10.4) fL Lymph # (Auto) (1.2-3.4) K/uL Glucose (70-99) mg/dl POC Glucose (70-99) mg/dl Total Bilirubin (0.2-1) mg/dl Alkaline Phosphatase (45-117) U/L NT-Pro-B Natriuret Pep 8788 H (0-1800) pg/ml Albumin (3.4-5.0) gm/dl Albumin/Globulin Ratio (0.9-2) Ur Leukocyte Esterase (Negative) Urine WBC (Auto) (0-5) /hpf Digoxin 0.1 L (0.8-2.0) ng/ml SARS-CoV-2 (PCR) (Negative) SARS-CoV-2, RNA, NAAT POSITIVE A* (NEGATIVE) 07/09/20 07/09/20 07/09/20 Range/Units 16:34 17:32 19:36 RBC (4.7-6.1) M/uL Hgb (14.0-18.0) g/dL Hct (42-52) % RDW Std Deviation (36.4-46.3) fL RDW Coeff of Charo (11.5-14.5) % MPV (7.4-10.4) fL Lymph # (Auto) (1.2-3.4) K/uL Glucose (70-99) mg/dl POC Glucose 115 H 127 H (70-99) mg/dl Total Bilirubin (0.2-1) mg/dl Alkaline Phosphatase (45-117) U/L NT-Pro-B Natriuret Pep (0-1800) pg/ml Albumin (3.4-5.0) gm/dl Albumin/Globulin Ratio (0.9-2) Ur Leukocyte Esterase (Negative) Urine WBC (Auto) (0-5) /hpf Digoxin (0.8-2.0) ng/ml SARS-CoV-2 (PCR) POSITIVE A* (Negative) SARS-CoV-2, RNA, NAAT (NEGATIVE) 07/09/20 07/09/20 07/10/20 Range/Units 22:39 23:48 05:56 RBC (4.7-6.1) M/uL Hgb (14.0-18.0) g/dL Hct (42-52) % RDW Std Deviation (36.4-46.3) fL RDW Coeff of Charo (11.5-14.5) % MPV (7.4-10.4) fL Lymph # (Auto) (1.2-3.4) K/uL Glucose (70-99) mg/dl POC Glucose 122 H 119 H (70-99) mg/dl Total Bilirubin (0.2-1) mg/dl Alkaline Phosphatase (45-117) U/L NT-Pro-B Natriuret Pep (0-1800) pg/ml Albumin (3.4-5.0) gm/dl Albumin/Globulin Ratio (0.9-2) Ur Leukocyte Esterase 2+ H (Negative) Urine WBC (Auto) >30 H (0-5) /hpf Digoxin (0.8-2.0) ng/ml SARS-CoV-2 (PCR) (Negative) SARS-CoV-2, RNA, NAAT (NEGATIVE) 07/10/20 07/10/20 07/10/20 Range/Units 06:51 06:51 11:43 RBC 2.87 L (4.7-6.1) M/uL Hgb 9.2 L (14.0-18.0) g/dL Hct 28.3 L (42-52) % RDW Std Deviation 72.9 H (36.4-46.3) fL RDW Coeff of Charo 20.1 H (11.5-14.5) % MPV 10.6 H (7.4-10.4) fL Lymph # (Auto) 0.96 L (1.2-3.4) K/uL Glucose 107 H (70-99) mg/dl POC Glucose 105 H (70-99) mg/dl Total Bilirubin 1.4 H (0.2-1) mg/dl Alkaline Phosphatase 125 H (45-117) U/L NT-Pro-B Natriuret Pep (0-1800) pg/ml Albumin 2.6 L (3.4-5.0) gm/dl Albumin/Globulin Ratio 0.7 L (0.9-2) Ur Leukocyte Esterase (Negative) Urine WBC (Auto) (0-5) /hpf Digoxin (0.8-2.0) ng/ml SARS-CoV-2 (PCR) (Negative) SARS-CoV-2, RNA, NAAT (NEGATIVE)
--- NOTE | 2020-07-10 13:32 | Hospitalist Progress Note ---
Date of Service July 10, 2020 Assessment & Plan (1) Biliary colic: Recurrent biliary colic with referred pain to shoulder ongoing. Requiring consistent narcotic therapy. No clear evidence of infection and definitely no sepsis present at this time. Cont to empirically cover with antibiotics pending clinical improvement and culture results. Possibly consider full course of antibiotics given the fact that he has a new diagnosis of COVID and won't be easily able to go to the operating room until his pulmonary status is optimized. Discussed case with surgeon salon customer experience specialist. Clears ordered and will advance to a low fat diet as tolerated. (2) COVID-19: New diagnosis, and patient has a decreased oxygen status today. No evidence of pneumonia on yesterrday's CXR but did have fluid. May need diuretic therapy. Will repeat CXR at this time and direct treatment based on results. Started decadron therapy now. If he continues to remain hypoxic or worsens overnight, will consider remdesivir therapy in am. (3) Peptic ulcer disease: PPI BID (4) Cirrhosis: appears compensated, mentating well. Cont lactulose daily. May need to increase if he continues to utilize narcotics for pain control. Cont rifaximin per home regimen. (5) Atrial fibrillation: afib overnight with some tachycardia in the low 100s. Cont digoxin and diltiazem 180mg daily. Not on anticoagulation-will review records. (6) Diabetes mellitus, type 2: Well controlled. Cont correction coverage only at this time. May need increased insulin with steroids but will monitor BSG for now. (7) DVT prophylaxis: Lovenox Full Code Dispo-uncertain at this time. For now will continue with both steroids and antibiotics and monitor clinical progress both from a pulmonary and biliary perspective. Advance diet as tolerated. He will eventually need a lap sera, but this may not be performed this admission. Shey Sullivan DO [facility]ist Admission and Anticipated Discharge Date Admission Date: July 09, 2020 Subjective 80 yo M prisoner presents for persistent biliary colic over the past week. Symptoms ongoing for the past several months. -requiring consistent pain meds or else pain is severe -ok with having some clears if allowed -reports normal BMs (on lactulose) -denies SOB, coughing, fvers, chills. -reports no recent respiratory symptoms but obvious hgh risk for covid infection with prisoner status. Review of Systems Review of Systems: All systems reviewed & are unremarkable except as noted in Subjective Physical Exam Physical Exam: CONSTITUTIONAL: WNWD, vitals as above, generally well- appearing EYES: normal conjunctivae, no scleral icterus ENT: external ear and nose normal, oropharynx clear, MMM RESPIRATORY: clear to auscultation bilaterally, no crackles, rales or wheezes, normal respiratory effort. Speaking in full sentences. No accessory muscle use. CARDIOVASCULAR: regular rate and rhythm, S1 and 2 heard without murmurs, gallops or rubs, no JVD, no peripheral edema GASTROINTESTINAL: soft, TPT in RUQ, no guarding, nondistended. MUSCULOSKELETAL: strength 5/5 throughout, head is normocephalic and atraumatic SKIN: warm and dry NEUROLOGIC: CN 2-12 grossly intact, no sensory deficit, normal cognition, normal speech PSYCHIATRIC: alert cooperative and oriented to person, place and time. Results & Data Results & Data ([facility]) Vital Signs (Past 12 Hours) Vital Signs Temp Pulse Pulse Resp BP Pulse Ox 07/10/20 11:47 36.5 C 105 H 18 119/76 92 07/10/20 08:04 36.6 C 102 H 18 159/89 H 93 07/10/20 08:00 107 H 07/10/20 01:58 94 H Laboratory Results Short CBC 07/10/20 Range/Units 06:51 WBC 7.62 (4.8-10.8) K/uL Hgb 9.2 L (14.0-18.0) g/dL Hct 28.3 L (42-52) % Plt Count 149 (130-400) K/uL BMP 07/10/20 06:51 Sodium 142 Potassium 3.8 Chloride 107 Carbon Dioxide 29 BUN 11 Creatinine 0.98 Glucose 107 H Calcium 9.4 Liver Function 07/10/20 Range/Units 06:51 Total Bilirubin 1.4 H (0.2-1) mg/dl AST 18 (15-37) U/L ALT 13 (12-78) U/L Alkaline Phosphatase 125 H (45-117) U/L Albumin 2.6 L (3.4-5.0) gm/dl Urine 07/09/20 Range/Units 22:39 Urine Color Yellow Urine Appearance Clear (Clear) Urine pH 7.5 (4.5-7.5) Ur Specific [place] 1.009 (1.000-1.030) Urine Protein Negative (Negative) Urine Glucose (UA) Negative (Negative) Medications Administered Current Inpatient Medications Acetaminophen (Acetaminophen 325 Mg Tab) 650 mg PO Q4H PRN PRN Reason: Pain or Fever Stop: 08/08/20 18:04 Artificial Tears (Artificial Tears) 1 drops OP QID [facility] Stop: 08/08/20 20:59 Last Admin: 07/10/20 11:57 Dose: Not Given Documented by: Cyanocobalamin (Cyanocobalamin 500 Mcg Tablet (Vitamin B-12)) 500 mcg PO DAILY [facility] Stop: 08/09/20 08:59 Last Admin: 07/10/20 08:52 Dose: 500 mcg Documented by: Dextrose (Dextrose 50% 50 Ml Syringe) 25 - 50 ml IV UD PRN; Protocol PRN Reason: Hypoglycemia Protocol Stop: 08/08/20 18:04 Dicyclomine HCl (Dicyclomine Hcl 20 Mg Tab) 20 mg PO BID [facility] Stop: 08/08/20 20:59 Last Admin: 07/10/20 08:50 Dose: 20 mg Documented by: Digoxin (Digoxin 0.25 Mg Tab) 0.25 mg PO DAILY@1600 [facility] Stop: 08/09/20 15:59 Diltiazem HCl (Diltiazem Hcl 180 Mg Capcr) 180 mg PO QAM [facility] Stop: 08/09/20 08:59 Last Admin: 07/10/20 08:50 Dose: 180 mg Documented by: Ferrous Sulfate (Ferrous Sulfate 325 Mg Tab) 325 mg PO DAILY [facility] Stop: 08/09/20 08:59 Last Admin: 07/10/20 08:51 Dose: 325 mg Documented by: Fluticasone/Vilanterol (Fluticasone/Vilanterol 100/25mcg 14 Puffs/Inhaler) 1 puffs INH DAILY [facility] Stop: 08/09/20 08:59 Last Admin: 07/10/20 08:50 Dose: 1 puffs Documented by: Glucagon (Glucagon For Inj 1 Mg Vial) 1 mg SQ UD PRN; Protocol PRN Reason: Hypoglycemia Protocol Stop: 08/08/20 18:04 Glucose (Glucose 10 Tabs/Tube) 4 - 8 tabs PO UD PRN; Protocol PRN Reason: Hypoglycemia Protocol Stop: 08/08/20 18:04 Glucose (Glucose 40% Gel 15 Gm Tube) 15 - 30 gm PO UD PRN; Protocol PRN Reason: Hypoglycemia Protocol Stop: 08/08/20 18:04 Hydralazine HCl (Hydralazine Hcl 20 Mg/Ml Vial) 10 mg IV Q6H PRN PRN Reason: Hypertension Stop: 08/08/20 17:59 Hydromorphone HCl (Hydromorphone Inj 0.5 Mg/0.5 Ml Syr) 0.5 mg IV Q4H PRN PRN Reason: Moderate Pain Stop: 07/23/20 18:04 Last Admin: 07/10/20 05:53 Dose: 0.5 mg Documented by: Pantoprazole Sodium 40 mg/ (Syringe) 10 mls @ 5 mls/min IV DAILY@1100 [facility] Stop: 08/09/20 10:59 Last Admin: 07/10/20 11:49 Dose: 5 mls/min Documented by: Piperacillin Sod/Tazobactam (Sod 3.375 gm/ Dextrose) 115 mls @ 28.75 mls/hr IV Q8H [facility]; Protocol Stop: 07/19/20 19:59 Last Admin: 07/10/20 11:54 Dose: 28.8 mls/hr Documented by: Insulin Aspart (Insulin Aspart 100 Units/Ml 3 Ml Pen) 0 units SC Q6 [facility] Stop: 08/09/20 00:00 Last Admin: 07/10/20 11:55 Dose: Not Given Documented by: Lactulose (Lactulose Syrup 20 Gm/30 Ml Udc) 20 gm PO BID [facility] Stop: 08/08/20 20:59 Last Admin: 07/10/20 08:55 Dose: Not Given Documented by: Levalbuterol HCl (Levalbuterol Tartrate 15 Gm Hfa.Aer.Ad) 2 puffs INH QID PRN PRN Reason: Shortness Of Breath Or Wheezing Stop: 08/08/20 18:04 Losartan Potassium (Losartan Potassium 25 Mg Tab) 25 mg PO DAILY [facility] Stop: 08/09/20 08:59 Last Admin: 07/10/20 08:51 Dose: 25 mg Documented by: Miscellaneous (Carbohydrates For Hypoglycemia ) 15 - 30 gm PO UD PRN PRN Reason: Hypoglycemia Protocol Stop: 08/08/20 18:04 Miscellaneous Information (Piperacill/Tazobac Consult Active) 1 ea N/A UD [facility] Stop: 08/08/20 18:19 Morphine Sulfate (Morphine Sulfate 4 Mg/Ml 1 Ml Carp\Vial) 4 mg IV Q4H PRN PRN Reason: Pain Stop: 07/23/20 16:20 Last Admin: 07/10/20 08:46 Dose: 4 mg Documented by: Nitroglycerin (Nitroglycerin Sl 0.4 Mg/Tab Tab) 0.4 mg SL UD PRN PRN Reason: Chest Pain Stop: 08/08/20 18:04 Ondansetron HCl (Ondansetron Inj 2 Mg/Ml 2 Ml Vial) 4 mg IV Q6H PRN PRN Reason: Nausea Stop: 08/08/20 18:04 Paroxetine HCl (Paroxetine Hcl 20 Mg Tab) 20 mg PO DAILY [facility] Stop: 08/09/20 08:59 Last Admin: 07/10/20 08:51 Dose: 20 mg Documented by: Rifaximin (Rifaximin 550 Mg Tablet) 550 mg PO BID [facility] Stop: 08/08/20 20:59 Last Admin: 07/10/20 08:52 Dose: 550 mg Documented by: Tamsulosin HCl (Tamsulosin Hcl 0.4 Mg Cap) 0.4 mg PO DAILY [facility] Stop: 08/09/20 08:59 Last Admin: 07/10/20 08:51 Dose: 0.4 mg Documented by: (1) Cirrhosis Ascites presence: with ascites Hepatic cirrhosis type: alcoholic cirrhosis Qualified Code(s): K70.31 - Alcoholic cirrhosis of liver with ascites (2) Atrial fibrillation Atrial fibrillation type: persistent (not longstanding) Qualified Code(s): I48.19 - Other persistent atrial fibrillation
[2020-07-10] MEDS ORDERED: dexAMETHasone 6 MG in SYRINGE 0 ML IV STA (15:01)
[2020-07-10] MEDS: DIGOXIN 0.25 MG TAB PO SCH (16:19)
--- NOTE | 2020-07-10 16:44 | XRay Report ---
SINGLE VIEW CHEST CLINICAL HISTORY: Hypoxia. Covid. FINDINGS: An AP, portable, upright chest radiograph is compared to study dated 07/09/2020. Correlation is made with chest CT dated 12/10/2017. The heart is enlarged noting atherosclerotic calcification of the thoracic aorta. Pulmonary vascular congestion persists. Interstitial airspace opacities have mod estly improved as compared to yesterday. Emphysema and chronic interstitial thickening is similar to previous. There are small pleural effusions. No pneumothorax is seen. The skeletal structures are ost eopenic. The bony thorax is grossly intact. IMPRESSION: 1. Cardiomegaly and emphysema with mild pulmonary vascular congestion. 2. Interstitial airspace opacities have modestly improved as compared to yesterday. This could repres ent an infectious/inflammatory pneumonitis or possibly a component of pulmonary edema. 3. Small pleural effusions. ACT 112: Negative or not required by law. Electronically signed by: Bud Scruggs M.D. 07/10/2020 4:43 PM
[2020-07-10] MEDS: ENOXAPARIN INJ 40 MG/0.4 ML SYR SQ SCH (20:44)
[2020-07-10] MEDS: PANTOprazole 40 MG TAB PO SCH (20:45)
[2020-07-11] MEDS: HYDROmorphone INJ 0.5 MG/0.5 ML SYR IV PRN ×3 (00:51→17:20)
[2020-07-11] MEDS: PIPERACILLIN/TAZOBACTAM 3.375 GM in DEXTROSE 5% 100 ML IV SCH ×3 (04:42→20:04)
[2020-07-11 06:42] LABS: Hematocrit (blood only) 24.7 % (42-52); Hemoglobin 8.3 g/dL (14.0-18.0); Mean Corpuscular Hemoglobin 32.8 pg (25-34); Mean Corpuscular Hgb Conc 33.6 g/dL (32-36); Mean Corpuscular Volume 97.6 fL (80-100); Mean Platelet Volume 10.3 fL (7.4-10.4); Platelet Count 128 K/uL (130-400); RDW Coefficient of Variation 19.1 % (11.5-14.5); RDW Standard Deviation 68.1 fL (36.4-46.3); Red Blood Count 2.53 M/uL (4.7-6.1)
[2020-07-11 07:14] LABS: Albumin Level 2.4 gm/dl (3.4-5.0); BUN Creatinine Ratio 15.2 (10-20); Creatinine Clr Calc Pharmacy 71.3 ml/min; Est GFR (African American) 93.2; Est GFR (Non-African American) 80.4
[2020-07-11 07:16] LABS: Albumin Globulin Ratio 0.6 (0.9-2); C Reactive Protein 4.27 mg/dl (0-0.29); Globulin 3.9 gm/dl (2.5-4.0); Total Protein 6.3 gm/dl (6.4-8.2)
[2020-07-11] MEDS: INSULIN ASPART 100 UNITS/ML 3 ML PEN SC SCH ×4 (08:11→20:29)
[2020-07-11] MEDS: ARTIFICIAL TEARS OP SCH ×4 (08:54→20:11)
[2020-07-11] MEDS: FLUTICASONE/VILANTEROL 100/25MCG 14 PUFFS/INHALER INH SCH (08:55)
[2020-07-11] MEDS: dilTIAZem HCL 180 MG CAPCR PO SCH (08:58)
[2020-07-11] MEDS: rifAXIMin 550 MG TABLET PO SCH ×2 (08:58→20:14)
[2020-07-11] MEDS: LOSARTAN POTASSIUM 25 MG TAB PO SCH (08:58)
[2020-07-11] MEDS: TAMSULOSIN HCL 0.4 MG CAP PO SCH (08:58)
[2020-07-11] MEDS: PARoxetine HCL 20 MG TAB PO SCH ×2 (08:58→09:05)
[2020-07-11] MEDS: PANTOprazole 40 MG TAB PO SCH ×2 (08:58→20:13)
[2020-07-11] MEDS: LACTULOSE SYRUP 20 GM/30 ML UDC PO SCH ×2 (08:58→20:12)
[2020-07-11] MEDS: CYANOCOBALAMIN 500 MCG TABLET (VITAMIN B-12) PO SCH (08:58)
[2020-07-11] MEDS: DICYCLOMINE HCL 20 MG TAB PO SCH ×2 (08:58→20:12)
[2020-07-11] MEDS: dexAMETHasone 6 MG in SYRINGE 0 ML IV SCH (08:58)
--- NOTE | 2020-07-11 12:14 | Hospitalist Progress Note ---
Date of Service July 11, 2020 Assessment & Plan (1) Biliary colic: Recurrent biliary colic with referred pain to shoulder ongoing. Requiring consistent narcotic therapy. No clear evidence of gallbladder infection and definitely no sepsis present at this time. Cont to empirically cover with Zosyn pending clinical improvement and negative culture results. Possibly consider full course of antibiotics (7-10 days) to cover empirically for cholecystitis given the fact that he has a new diagnosis of COVID and won't be easily able to go to the operating room until his pulmonary status is optimized. Discussed case with surgeon cardiothoracic surgeon. Advanced diet to low fat. HIDA ordered for am (NPO p MN, hold narcotics for HIDA per protocol). (2) COVID-19: New diagnosis, no respiratory symptoms but has low oxygen saturation. Started decadron on 07/11. Repeat CXR yesterday revealed improvement in pulmonary edema and pleural effusions and without evidence of respiratory distress, no further treatment was felt to be indicated. No pneumonia present. Remdesivir therapy discussed with him, however, given the fact that he is not hypoxic and is relatively asymptomatic from COVID-19 (i/e-this would not solely be a reason for hospitalization), the risks are felt to outweigh the potential benefits with this unproven therapy. Will hold for now and cont with decadron. (3) Peptic ulcer disease: PPI BID, alexandra while on steroid therapy. (4) Cirrhosis: appears compensated, mentating well. Cont lactulose daily. May need to increase if he continues to utilize narcotics for pain control. Goal is for him to have 2-3 BMs daily. Cont rifaximin per home regimen. (5) Atrial fibrillation: Rate is better controlled today and he appears hemodynamically stable and clinically improved. Will dc telemetry at this time. Cont home dilt and dig. Not on anticoagulation likely as a result of recent bleeding in May 2020. (6) Diabetes mellitus, type 2: Well controlled. Cont correction coverage only at this time. May need increased insulin with steroids but will monitor BSG for now. (7) Anemia: Chronic anemia since recent admission for GI bleed. Cont to monitor patient on Lovenox for DVT prophylaxis. CBC in am. (8) Leukopenia: Decreased WBC likely related to acute COVID infection. Expected to improve as he improves from an infection standpoint. (9) Thrombocytopenia: Borderline low normal at baseline, likely related to cirrhotic state. Also with some consumption with acute infection. Cont to trend. (10) Bacteriuria: presence of bacteria in urine culture and patient has a h/o ESBL E coli, however, he reports no urinary symptoms at this time. Would consider not treating. Currently covered with Zosyn for other reasons. Consider ID consultation when culture results. (11) DVT prophylaxis: Lovenox Full Code Dispo-uncertain at this time. For now will continue with both steroids and antibiotics and monitor clinical progress both from a pulmonary and biliary perspective. HIDA in am. He will eventually need a lap sera, but this may not be performed this admission. Shey Sullivan DO [facility] Ad[facility] and Anticipated Discharge Date Admission Date: July 09, 2020 Subjective 80 yo M prisoner presents for persistent biliary colic over the past week. Symptoms ongoing for the past several months. Still reports some RUQ pain but feeling well on the clears Requesting solid foods Denies SOB, fevers, chills, fatigue. Reviewed COVID, hypoxia, and gallbladder issues with him today. Review of Systems Review of Systems: All systems reviewed & are unremarkable except as noted in Subjective Physical Exam Physical Exam: CONSTITUTIONAL: WNWD, vitals as above, generally well- appearing EYES: normal conjunctivae, no scleral icterus ENT: external ear and nose normal, oropharynx clear, MMM RESPIRATORY: clear to auscultation bilaterally, no crackles, rales or wheezes, normal respiratory effort. Speaking in full sentences. No accessory muscle use. CARDIOVASCULAR: regular rate and rhythm, S1 and 2 heard without murmurs, gallops or rubs, no JVD, no peripheral edema GASTROINTESTINAL: soft, TTP in RUQ-about the same as yesterday if not slightly improved, no guarding, nondistended. MUSCULOSKELETAL: strength 5/5 throughout, head is normocephalic and atraumatic SKIN: warm and dry NEUROLOGIC: CN 2-12 grossly intact, no sensory deficit, normal cognition, normal speech PSYCHIATRIC: alert cooperative and oriented to person, place and time. Results & Data Results & Data ([facility]) Vital Signs (Past 12 Hours) Vital Signs Temp Pulse Pulse Resp BP Pulse Ox 07/11/20 12:00 36.8 C 86 18 145/81 H 97 07/11/20 08:10 36.8 C 96 H 18 137/77 93 07/11/20 08:00 89 07/11/20 04:46 86 18 127/71 92 Laboratory Results Short CBC 07/11/20 Range/Units 05:48 WBC 2.20 L D (4.8-10.8) K/uL Hgb 8.3 L (14.0-18.0) g/dL Hct 24.7 L (42-52) % Plt Count 128 L (130-400) K/uL BMP 07/11/20 05:48 Sodium 136 Potassium 4.0 Chloride 104 Carbon Dioxide 25 BUN 14 Creatinine 0.91 Glucose 153 H Calcium 9.0 Liver Function 07/11/20 Range/Units 05:48 Total Bilirubin 1.0 (0.2-1) mg/dl AST 15 (15-37) U/L ALT 12 (12-78) U/L Alkaline Phosphatase 114 (45-117) U/L Albumin 2.4 L (3.4-5.0) gm/dl Medications Administered Current Inpatient Medications Acetaminophen (Acetaminophen 325 Mg Tab) 650 mg PO Q4H PRN PRN Reason: Pain or Fever Stop: 08/08/20 18:04 Artificial Tears (Artificial Tears) 1 drops OP QID [facility] Stop: 08/08/20 20:59 Last Admin: 07/11/20 08:54 Dose: Not Given Documented by: Cyanocobalamin (Cyanocobalamin 500 Mcg Tablet (Vitamin B-12)) 500 mcg PO DAILY [facility] Stop: 08/09/20 08:59 Last Admin: 07/11/20 08:58 Dose: 500 mcg Documented by: Dextrose (Dextrose 50% 50 Ml Syringe) 25 - 50 ml IV UD PRN; Protocol PRN Reason: Hypoglycemia Protocol Stop: 08/08/20 18:04 Dicyclomine HCl (Dicyclomine Hcl 20 Mg Tab) 20 mg PO BID [facility] Stop: 08/08/20 20:59 Last Admin: 07/11/20 08:58 Dose: 20 mg Documented by: Digoxin (Digoxin 0.25 Mg Tab) 0.25 mg PO DAILY@1600 [facility] Stop: 08/09/20 15:59 Last Admin: 07/10/20 16:19 Dose: 0.25 mg Documented by: Diltiazem HCl (Diltiazem Hcl 180 Mg Capcr) 180 mg PO QAM [facility] Stop: 08/09/20 08:59 Last Admin: 07/11/20 08:58 Dose: 180 mg Documented by: Enoxaparin Sodium (Enoxaparin Inj 40 Mg/0.4 Ml Syr) 40 mg SQ Q24H [facility] Stop: 08/09/20 15:59 Last Admin: 07/10/20 20:44 Dose: 40 mg Documented by: Ferrous Sulfate (Ferrous Sulfate 325 Mg Tab) 325 mg PO DAILY [facility] Stop: 08/09/20 08:59 Last Admin: 07/10/20 08:51 Dose: 325 mg Documented by: Fluticasone/Vilanterol (Fluticasone/Vilanterol 100/25mcg 14 Puffs/Inhaler) 1 puffs INH DAILY [facility] Stop: 08/09/20 08:59 Last Admin: 07/11/20 08:55 Dose: 1 puffs Documented by: Glucagon (Glucagon For Inj 1 Mg Vial) 1 mg SQ UD PRN; Protocol PRN Reason: Hypoglycemia Protocol Stop: 08/08/20 18:04 Glucose (Glucose 10 Tabs/Tube) 4 - 8 tabs PO UD PRN; Protocol PRN Reason: Hypoglycemia Protocol Stop: 08/08/20 18:04 Glucose (Glucose 40% Gel 15 Gm Tube) 15 - 30 gm PO UD PRN; Protocol PRN Reason: Hypoglycemia Protocol Stop: 08/08/20 18:04 Hydromorphone HCl (Hydromorphone Inj 0.5 Mg/0.5 Ml Syr) 0.5 mg IV Q4H PRN PRN Reason: Moderate Pain Stop: 07/23/20 18:04 Last Admin: 07/11/20 08:52 Dose: 0.5 mg Documented by: Piperacillin Sod/Tazobactam (Sod 3.375 gm/ Dextrose) 115 mls @ 28.75 mls/hr IV Q8H [facility]; Protocol Stop: 07/19/20 19:59 Last Infusion: 07/11/20 09:17 Dose: Infused Documented by: Dexamethasone 6 mg/ Syringe 1.5 mls @ 1 mls/min IV DAILY [facility] Stop: 08/10/20 08:59 Last Admin: 07/11/20 08:58 Dose: 1 mls/min Documented by: Insulin Aspart (Insulin Aspart 100 Units/Ml 3 Ml Pen) 0 units SC ACHS [facility] Stop: 08/09/20 16:29 Last Admin: 02/28/21 11:59 Dose: Not Given Documented by: Lactulose (Lactulose Syrup 20 Gm/30 Ml Udc) 20 gm PO BID [facility] Stop: 08/08/20 20:59 Last Admin: 07/11/20 08:58 Dose: 20 gm Documented by: Levalbuterol HCl (Levalbuterol Tartrate 15 Gm Hfa.Aer.Ad) 2 puffs INH QID PRN PRN Reason: Shortness Of Breath Or Wheezing Stop: 08/08/20 18:04 Losartan Potassium (Losartan Potassium 25 Mg Tab) 25 mg PO DAILY [facility] Stop: 08/09/20 08:59 Last Admin: 07/11/20 08:58 Dose: 25 mg Documented by: Miscellaneous (Carbohydrates For Hypoglycemia ) 15 - 30 gm PO UD PRN PRN Reason: Hypoglycemia Protocol Stop: 08/08/20 18:04 Miscellaneous Information (Piperacill/Tazobac Consult Active) 1 ea N/A UD [facility] Stop: 08/08/20 18:19 Morphine Sulfate (Morphine Sulfate 4 Mg/Ml 1 Ml Carp\Vial) 4 mg IV Q4H PRN PRN Reason: Pain Stop: 07/23/20 16:20 Last Admin: 07/10/20 08:46 Dose: 4 mg Documented by: Nitroglycerin (Nitroglycerin Sl 0.4 Mg/Tab Tab) 0.4 mg SL UD PRN PRN Reason: Chest Pain Stop: 08/08/20 18:04 Ondansetron HCl (Ondansetron Inj 2 Mg/Ml 2 Ml Vial) 4 mg IV Q6H PRN PRN Reason: Nausea Stop: 08/08/20 18:04 Pantoprazole Sodium (Pantoprazole 40 Mg Tab) 40 mg PO BID [facility] Stop: 08/09/20 20:59 Last Admin: 07/11/20 08:58 Dose: 40 mg Documented by: Paroxetine HCl (Paroxetine Hcl 20 Mg Tab) 20 mg PO DAILY [facility] Stop: 08/09/20 08:59 Last Admin: 07/11/20 09:05 Dose: Not Given Documented by: Rifaximin (Rifaximin 550 Mg Tablet) 550 mg PO BID [facility] Stop: 08/08/20 20:59 Last Admin: 07/11/20 08:58 Dose: 550 mg Documented by: Tamsulosin HCl (Tamsulosin Hcl 0.4 Mg Cap) 0.4 mg PO DAILY [facility] Stop: 08/09/20 08:59 Last Admin: 07/11/20 08:58 Dose: 0.4 mg Documented by: (1) Atrial fibrillation Atrial fibrillation type: persistent (not longstanding) Qualified Code(s): I48.19 - Other persistent atrial fibrillation (2) Cirrhosis Ascites presence: with ascites Hepatic cirrhosis type: alcoholic cirrhosis Qualified Code(s): K70.31 - Alcoholic cirrhosis of liver with ascites
--- NOTE | 2020-07-11 12:48 | Surgery Progress Note ---
Date of Service July 11, 2020 Assessment & Plan (1) Acute cholecystitis: On IV abx, able to tolerate diet but still complaining of pain. Would recommend HIDA scan (can be done tomorrow) to better assess gallbladder. If no acute cholecystitis on HIDA, consider elective lap sera once safe from covid 19 standpoint. If HIDA shows acute cholecystitis, would try to do his lap sera this admission once pulmonary status stable. (2) COVID-19: management as per medicine. Oxygenation improved on decadron. Admission and Anticipated Discharge Date Admission Date: July 09, 2020 Subjective Eating low fat diet. States eating does not make the pain worse. Gets "pain from my gallbladder" but the meds help. Started steroids for his covid 19 infection. No nausea/ vomiting currently but states he was nauseated earlier. Received 8 mg of morphine (2 doses) and 1 mg of dilaudid (2 doses) yesterday. Review of Systems Respiratory: oxygenation improved to 97% on RA, on decadron Physical Exam Constitutional: well developed and well nourished Eyes: PERRL, conjunctivae normal, anicteric sclerae ENMT: external ear and nose normal, oropharynx normal Respiratory: normal respiratory effort and + audible wheezes (left upper lobe); no respiratory distress Cardiovascular: Rate/Rhythm: + irregularly irregular Vessels: no JVD Gastrointestinal (Abdomen): Inspection/Auscultation: abdomen normal to inspection and normal bowel sounds; abdomen not distended Percussion/Palpation: + abdomen tender (RUQ but less than yesterday) and abdomen soft; no guarding and no hernia Musculoskeletal: Head/Neck/Chest: normocephalic and head atraumatic Neurologic: CN's II-XI intact bilaterally and awake; no focal motor deficits Psychiatric: A+Ox3, euthymic affect Results & Data ([facility]) Vital Signs (Past 12 Hours) Vital Signs Temp Pulse Pulse Resp BP Pulse Ox 07/11/20 12:00 36.8 C 86 18 145/81 H 97 07/11/20 08:10 36.8 C 96 H 18 137/77 93 07/11/20 08:00 89 07/11/20 04:46 86 18 127/71 92 Laboratory Results Abnormal lab results 07/10/20 07/11/20 07/11/20 Range/Units 20:26 05:48 05:48 WBC 2.20 L D (4.8-10.8) K/uL RBC 2.53 L (4.7-6.1) M/uL Hgb 8.3 L (14.0-18.0) g/dL Hct 24.7 L (42-52) % RDW Std Deviation 68.1 H (36.4-46.3) fL RDW Coeff of Charo 19.1 H (11.5-14.5) % Plt Count 128 L (130-400) K/uL Glucose 153 H (70-99) mg/dl POC Glucose 147 H (70-99) mg/dl C-Reactive Protein 4.27 H (0-0.29) mg/dl Total Protein 6.3 L (6.4-8.2) gm/dl Albumin 2.4 L (3.4-5.0) gm/dl Albumin/Globulin Ratio 0.6 L (0.9-2) 07/11/20 07/11/20 Range/Units 08:06 11:58 WBC (4.8-10.8) K/uL RBC (4.7-6.1) M/uL Hgb (14.0-18.0) g/dL Hct (42-52) % RDW Std Deviation (36.4-46.3) fL RDW Coeff of Charo (11.5-14.5) % Plt Count (130-400) K/uL Glucose (70-99) mg/dl POC Glucose 156 H 164 H (70-99) mg/dl C-Reactive Protein (0-0.29) mg/dl Total Protein (6.4-8.2) gm/dl Albumin (3.4-5.0) gm/dl Albumin/Globulin Ratio (0.9-2)
[2020-07-11] MEDS: MoRPHine SULFATE 4 MG/ML 1 ML CARP\\VIAL IV PRN ×2 (13:01→20:16)
[2020-07-11] MEDS: DIGOXIN 0.25 MG TAB PO SCH (17:14)
[2020-07-11] MEDS: ENOXAPARIN INJ 40 MG/0.4 ML SYR SQ SCH (17:18)
[2020-07-12] MEDS: PIPERACILLIN/TAZOBACTAM 3.375 GM in DEXTROSE 5% 100 ML IV SCH ×3 (03:26→20:34)
[2020-07-12] MEDS: INSULIN ASPART 100 UNITS/ML 3 ML PEN SC SCH ×4 (08:16→20:50)
[2020-07-12 08:52] LABS: Hematocrit (blood only) 25.6 % (42-52); Hemoglobin 8.4 g/dL (14.0-18.0); Mean Corpuscular Hemoglobin 32.2 pg (25-34); Mean Corpuscular Hgb Conc 32.8 g/dL (32-36); Mean Corpuscular Volume 98.1 fL (80-100); Mean Platelet Volume 10.9 fL (7.4-10.4); Platelet Count 132 K/uL (130-400); RDW Standard Deviation 66.1 fL (36.4-46.3); Red Blood Count 2.61 M/uL (4.7-6.1); White Blood Count 3.65 K/uL (4.8-10.8)
[2020-07-12 09:23] LABS: Calcium 9.5 mg/dl (8.5-10.1); Creatinine Clr Calc Pharmacy 51.9 ml/min; Est GFR (African American) 63.5; Est GFR (Non-African American) 54.8; Potassium 4.1 mmol/L (3.5-5.1)
[2020-07-12] MEDS: HYDROmorphone INJ 0.5 MG/0.5 ML SYR IV PRN (09:49)
[2020-07-12] MEDS: dexAMETHasone 6 MG in SYRINGE 0 ML IV SCH (09:52)
[2020-07-12] MEDS: FLUTICASONE/VILANTEROL 100/25MCG 14 PUFFS/INHALER INH SCH (09:55)
[2020-07-12] MEDS: ARTIFICIAL TEARS OP SCH ×4 (09:57→20:36)
[2020-07-12] MEDS: DICYCLOMINE HCL 20 MG TAB PO SCH ×2 (09:57→20:37)
[2020-07-12] MEDS: dilTIAZem HCL 180 MG CAPCR PO SCH (09:58)
[2020-07-12] MEDS: LOSARTAN POTASSIUM 25 MG TAB PO SCH (09:58)
[2020-07-12] MEDS: LACTULOSE SYRUP 20 GM/30 ML UDC PO SCH ×2 (09:58→20:37)
[2020-07-12] MEDS: TAMSULOSIN HCL 0.4 MG CAP PO SCH (09:59)
[2020-07-12] MEDS: FOLIC ACID 1 MG TAB PO SCH (09:59)
[2020-07-12] MEDS: PARoxetine HCL 20 MG TAB PO SCH (10:00)
[2020-07-12] MEDS: THIAMINE HCL 100 MG TAB PO SCH (10:00)
[2020-07-12] MEDS: PANTOprazole 40 MG TAB PO SCH ×2 (10:00→20:37)
[2020-07-12] MEDS: CYANOCOBALAMIN 500 MCG TABLET (VITAMIN B-12) PO SCH (10:00)
[2020-07-12] MEDS: rifAXIMin 550 MG TABLET PO SCH (10:01)
[2020-07-12] MEDS: DIGOXIN 0.25 MG TAB PO SCH (16:04)
[2020-07-12] MEDS: ENOXAPARIN INJ 40 MG/0.4 ML SYR SQ SCH ×2 (16:06→16:12)
--- NOTE | 2020-07-12 17:57 | Nuclear Medicine Report ---
NUCLEAR HEPATOBILIARY SCAN CLINICAL HISTORY: Right upper quadrant abdominal pain. Nausea and vomiting. COMPARISON STUDY: Abdominal CT dated 05/08/2020. Abdominal ultrasound dated 07/09/2020. TECHNIQUE: Dynamic images of the liver and anterior abdomen were obtained every 5 minutes beginning a t 25 minutes up to 60 minutes following the IV administration of 4.2 mCi of technetium 99m Choletec. An additional 70 minute images was acquired. FINDINGS: The hepatobiliary scan shows prompt and homogeneous hepatic uptake. There is visualized act ivity within the intra and extrahepatic biliary tree at 25 minutes, and within the gallbladder at 45 minutes. There is normal biliary to bowel transit, with small bowel visualized by 55 minutes. IMPRESSION: There is no scintigraphic evidence of cholecystitis. ACT 112: Negative or not required by law. Electronically signed by: Bud Scruggs M.D. 07/12/2020 5:55 PM
--- NOTE | 2020-07-12 18:40 | Surgery Progress Note ---
Date of Service F/U HIDA scan which is negative for acute cholecystitis, pt had chicken for dinner without abdominal pain, no nausea, no vomiting. July 12, 2020 Assessment & Plan (1) Acute cholecystitis: On IV abx, able to tolerate diet but still complaining of pain. Would recommend HIDA scan (can be done tomorrow) to better assess gallbladder. If no acute cholecystitis on HIDA, consider elective lap sera once safe from covid 19 standpoint. If HIDA shows acute cholecystitis, would try to do his lap sera this admission once pulmonary status stable. 07/12/2020 6:41PM HIDA scan negative, WBC normal, base on COVID-19 +, cirrhosis, pt can be discharged tomorrow, F/U his surgeon Dr. Fregoso for schedule out-patient elective surgery. sign off today, please call with questions, thanks, (2) COVID-19: management as per medicine. Oxygenation improved on decadron. Admission and Anticipated Discharge Date Admission Date: July 09, 2020 Subjective 80 yo M prisoner presents for persistent biliary colic over the past week. Symptoms ongoing for the past several months. Still reports some RUQ pain but feeling well on the clears Requesting solid foods Denies SOB, fevers, chills, fatigue. Reviewed COVID, hypoxia, and gallbladder issues with him today. Review of Systems Respiratory: oxygenation improved to 97% on RA, on decadron Physical Exam Constitutional: WD/WN, vitals as above well developed and well nourished Eyes: PERRL, conjunctivae normal, anicteric sclerae ENMT: external ear and nose normal, oropharynx normal Neck: trachea midline, no thyromegaly Respiratory: normal respiratory effort, lungs clear to auscultation normal respiratory effort Cardiovascular: Rate/Rhythm: + irregularly irregular Gastrointestinal (Abdomen): normal bowel sounds, soft, nontender, no hepatosplenomegaly Skin: no rashes, warm and dry Neurologic: awake Psychiatric: Orientation: alert and oriented x 3 Results & Data ([facility]) Vital Signs (Past 12 Hours) Vital Signs Temp Pulse Pulse Resp BP BP Pulse Ox 07/12/20 16:04 88 07/12/20 16:00 36.4 C L 88 20 123/54 L 98 07/12/20 11:52 36.8 C 98 H 16 130/78 94 07/12/20 07:41 36.6 C 99 H 18 141/83 H 95 Laboratory Results Abnormal lab results 07/11/20 07/12/20 07/12/20 Range/Units 20:21 07:38 08:26 WBC 3.65 L (4.8-10.8) K/uL RBC 2.61 L (4.7-6.1) M/uL Hgb 8.4 L (14.0-18.0) g/dL Hct 25.6 L (42-52) % RDW Std Deviation 66.1 H (36.4-46.3) fL RDW Coeff of Charo 19.0 H (11.5-14.5) % MPV 10.9 H (7.4-10.4) fL BUN (7-18) mg/dl Glucose (70-99) mg/dl POC Glucose 196 H 133 H (70-99) mg/dl 07/12/20 07/12/20 07/12/20 Range/Units 08:26 11:54 16:02 WBC (4.8-10.8) K/uL RBC (4.7-6.1) M/uL Hgb (14.0-18.0) g/dL Hct (42-52) % RDW Std Deviation (36.4-46.3) fL RDW Coeff of [place] (11.5-14.5) % MPV (7.4-10.4) fL BUN 21 H (7-18) mg/dl Glucose 117 H (70-99) mg/dl POC Glucose 141 H 190 H (70-99) mg/dl Diagnostic Findings NUCLEAR HEPATOBILIARY SCAN CLINICAL HISTORY: Right upper quadrant abdominal pain. Nausea and vomiting. COMPARISON STUDY: Abdominal CT dated 05/08/2020. Abdominal ultrasound dated 07/09/2020. TECHNIQUE: Dynamic images of the liver and anterior abdomen were obtained every 5 minutes beginning at 25 minutes up to 60 minutes following the IV administration of 4.2 mCi of technetium 99m Choletec. An additional 70 minute images was acquired. FINDINGS: The hepatobiliary scan shows prompt and homogeneous hepatic uptake. There is visualized activity within the intra and extrahepatic biliary tree at 25 minutes, and within the gallbladder at 45 minutes. There is normal biliary to bowel transit, with small bowel visualized by 55 minutes. IMPRESSION: There is no scintigraphic evidence of cholecystitis.
--- NOTE | 2020-07-12 19:03 | Hospitalist Progress Note ---
Date of Service July 12, 2020 Assessment & Plan (1) Biliary colic: Appreciate surgeyr input. Patient remains NPO. Currenlty awatining HIDA scan. If +; plan for surgery. If negative, will do trial of diet and f/u with surgery as an OP. D/C Zosycn and start ertapenem given ESBL E. Coli. (2) COVID-19: Remains on room air. He is afebrile. C/W decadron. No indication with Remdesivir. (3) Peptic ulcer disease: PPI BID, alexandra while on steroid therapy. (4) Cirrhosis: C/W lactulose and rifaximin. Goal of 2-3 daily BMs. 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 Rate is controlled. (6) Diabetes mellitus, type 2: c/w correction coverage. (7) Anemia: stable, will continue to monitor daily cbc. (8) Leukopenia: improved overall today, likely 2/2 covid. (9) Thrombocytopenia: in the setting of covid; improving. will contineu to monitor. (10) Bacteriuria: urine cultures growing ESBL. E Coli. [place] denies any dysuria but does endorse increase urinary frequency. Will start patient on Ertapenem. (11) DVT prophylaxis: Lovenox Full Code Admission and Anticipated Discharge Date Admission Date: July 09, 2020 Subjective Patient is awake, alert and oriented x3. States currently he is having 8-9/10 RUQ pain. No nausea or vomiting. Denies any chest pain, SOB, headahce or dizziness. Denies any dyruia but does endorse increase urinary frequency. Review of Systems Review of Systems: All systems reviewed & are unremarkable except as noted in HPI & below Physical Exam Physical Exam: General: A&Ox3 HENT: NCAT, MMM, EOMI Eyes: PERRLA Neck: Supple, normal range of motion CVS: normal rate and rhythm Resp: b/l good breath sounds Abdomen: Soft, RUQ tenderness appreciated Extremities: No c/c/e Neuro: face symmetric, strength grossly equal, no focal deficit Skin: warm and dry, no rashes/lesions/errythema MSK: normal ROM, no joint swelling/erythema Results & Data Results & Data ([facility]) Vital Signs (Past 12 Hours) Vital Signs Temp Pulse Pulse Resp BP BP Pulse Ox 07/12/20 16:04 88 07/12/20 16:00 36.4 C L 88 20 123/54 L 98 07/12/20 11:52 36.8 C 98 H 16 130/78 94 07/12/20 07:41 36.6 C 99 H 18 141/83 H 95 (1) Cirrhosis Ascites presence: with ascites Hepatic cirrhosis type: alcoholic cirrhosis Qualified Code(s): K70.31 - Alcoholic cirrhosis of liver with ascites (2) Atrial fibrillation Atrial fibrillation type: persistent (not longstanding) Qualified Code(s): I48.19 - Other persistent atrial fibrillation
[2020-07-12] MEDS ORDERED: ERTAPENEM SODIUM 500 MG in SODIUM CHLORIDE 0.9% 50 ML IV SCH (19:30)
[2020-07-12] MEDS: MoRPHine SULFATE 4 MG/ML 1 ML CARP\\VIAL IV PRN (20:31)
[2020-07-13] MEDS: PIPERACILLIN/TAZOBACTAM 3.375 GM in DEXTROSE 5% 100 ML IV SCH ×2 (04:58→13:50)
[2020-07-13 07:31] LABS: Hematocrit (blood only) 26.2 % (42-52); Hemoglobin 8.7 g/dL (14.0-18.0); Immature Granulocytes # (auto) 0.02 K/uL (0.00-0.02); Immature Granulocytes % (auto) 0.5 %; Lymphocytes # (auto) 0.43 K/uL (1.2-3.4); Lymphocytes % (auto) 10.5 %; Mean Corpuscular Hemoglobin 32.6 pg (25-34); Mean Corpuscular Hgb Conc 33.2 g/dL (32-36); Mean Corpuscular Volume 98.1 fL (80-100); Mean Platelet Volume 10.3 fL (7.4-10.4); Monocytes # (auto) 0.32 K/uL (0.11-0.59); Monocytes % (auto) 7.8 %; Neutrophils # (auto) 3.32 K/uL (1.4-6.5); Neutrophils % (auto) 81.2 %; Platelet Count 140 K/uL (130-400); RDW Coefficient of Variation 19.2 % (11.5-14.5); RDW Standard Deviation 67.2 fL (36.4-46.3); Red Blood Count 2.67 M/uL (4.7-6.1); White Blood Count 4.09 K/uL (4.8-10.8)
[2020-07-13] MEDS: INSULIN ASPART 100 UNITS/ML 3 ML PEN SC SCH ×3 (08:00→16:38)
[2020-07-13] MEDS: DICYCLOMINE HCL 20 MG TAB PO SCH (08:01)
[2020-07-13] MEDS: CYANOCOBALAMIN 500 MCG TABLET (VITAMIN B-12) PO SCH (08:01)
[2020-07-13] MEDS: THIAMINE HCL 100 MG TAB PO SCH (08:01)
[2020-07-13] MEDS: PARoxetine HCL 20 MG TAB PO SCH (08:01)
[2020-07-13] MEDS: PANTOprazole 40 MG TAB PO SCH (08:01)
[2020-07-13] MEDS: FOLIC ACID 1 MG TAB PO SCH (08:01)
[2020-07-13] MEDS: TAMSULOSIN HCL 0.4 MG CAP PO SCH (08:01)
[2020-07-13] MEDS: LACTULOSE SYRUP 20 GM/30 ML UDC PO SCH (08:01)
[2020-07-13] MEDS: dilTIAZem HCL 180 MG CAPCR PO SCH (08:01)
[2020-07-13] MEDS: LOSARTAN POTASSIUM 25 MG TAB PO SCH (08:01)
[2020-07-13 08:02] LABS: Albumin Globulin Ratio 0.6 (0.9-2); Albumin Level 2.3 gm/dl (3.4-5.0); BUN Creatinine Ratio 19.4 (10-20); Bilirubin,Total 0.6 mg/dl (0.2-1); Calcium 9.2 mg/dl (8.5-10.1); Creatinine Clr Calc Pharmacy 51.1 ml/min; Est GFR (African American) 62.3; Est GFR (Non-African American) 53.8; Globulin 3.6 gm/dl (2.5-4.0); Total Protein 5.9 gm/dl (6.4-8.2)
[2020-07-13] MEDS: ARTIFICIAL TEARS OP SCH ×2 (08:02→15:26)
[2020-07-13] MEDS: dexAMETHasone 6 MG in SYRINGE 0 ML IV SCH (08:02)
[2020-07-13] MEDS: FLUTICASONE/VILANTEROL 100/25MCG 14 PUFFS/INHALER INH SCH (08:02)
[2020-07-13] MEDS: MoRPHine SULFATE 4 MG/ML 1 ML CARP\\VIAL IV PRN (08:24)
--- NOTE | 2020-07-13 12:21 | Discharge Summary ---
Date of Service July 13, 2020 Admission HPI Per Admitting Provider Pt is 80 y/o M with PMH cirrhosis, recurrent UTI, ESBL UTI, a-fib off Coumadin, diastolic dysfunction, DM II, GERD, BPH, gallstones, GI bleed, profound anemia with recent [facility] hospitalization 05/22/20 and transfer to [facility] S/P PRBC, Platelet, FFP transfusion and IR of gastric artery presented to ER for abdominal pain x 2 days. Is to have elective cholecystectomy secondary to gallstones. He has been complaining of upper abdominal pain for the last 3 days associated with some nausea but no vomiting and diarrhea anorexia. Denies any fever and/or chills. Denies any cough, chest pain or shortness of breath. He has a history of cholelithiasis and in the ER ultrasound did show acute cholecystitis. He had a Covid test done at the facility before coming to the emergency room which is negative. Surgery was consulted and he was readmitted to medical floor for continuation of care. Further HPI, ROS per Dr Munoz Admission Exam Per Admitting Provider Physical Exam: Lying in bed with the moderate distress due to abdominal pain and nausea Constitutional: well developed, well nourished and + ill appearing Eyes: PERRL, conjunctivae normal, anicteric sclerae ENMT: external ear and nose normal, oropharynx normal Neck: trachea midline, no thyromegaly Respiratory: no respiratory distress Auscultation: lungs clear to auscultation bilaterally Cardiovascular: Rate/Rhythm: regular rate and regular rhythm Heart Sounds: no murmur Extremities: no edema Gastrointestinal (Abdomen): Inspection/Auscultation: abdomen not distended Percussion/Palpation: + abdomen tender (Right upper quadrant with positive Méndez sign) and abdomen soft; no guarding Musculoskeletal: No acute arthritis involving any joint Neurologic: Alert, awake and oriented x3. No focal sensory and motor deficit appreciated Lymphatic: no cervical or axillary lymphadenopathy Principal Diagnosis Biliary colic positive for Covid 19 Discharge Exam General: A&Ox3 HENT: NCAT, MMM, EOMI Eyes: PERRLA Neck: Supple, normal range of motion CVS: normal rate and rhythm Resp: b/l good breath sounds Abdomen: Soft, mild right upper quadrant tenderness appreciated Extremities: No c/c/e Neuro: face symmetric, strength grossly equal, no focal deficit Skin: warm and dry, no rashes/lesions/errythema MSK: normal ROM, no joint swelling/erythema Discharge Data Allergies Allergy/AdvReac Type Severity Reaction Status Date / Time doxazosin [From Cardura] Allergy Unknown Unknown Unverified 07/09/20 11:55 prazosin [From Minipress] Allergy Unknown Unknown Unverified 07/09/20 11:55 Consultations 07/09/20 14:35 ED Decision to Admit Stat 07/09/20 18:05 Consult Case Management - Discharge Planning Routine Consult General Surgery Routine Ordered Studies 07/09/20 10:51 gallbladder Stat Hospital Course (1) Biliary colic: General surgery was consulted. Patient underwent HIDA scan which was negative. On the day of discharge patient tolerated the diet well follow-up w [facility] general surgery for elective cholecystectomy. Patient was treated with Zosyn for bacterial coverage. Prior to discharge patient was on Cipro/Flagyl. (2) COVID-19: Patient was on room air on the day of discharge. Afebrile. No indication for remdesivir. Patient was treated with Decadron during the hospitalization. (3) Peptic ulcer disease: PPI BID while the patient received steroid therapy during this hospitalization. (4) Cirrhosis: C/W lactulose and rifaximin. Goal of 2-3 daily BMs. 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 Rate is controlled. (6) Diabetes mellitus, type 2: c/w correction coverage. (7) Anemia: stable, will continue to monitor daily cbc. (8) Leukopenia: Improved on the day of discharge. (9) Thrombocytopenia: in the setting of covid; improving. will contineu to monitor. (10) Bacteriuria: urine cultures growing ESBL. E Coli. [place] denies any dysuria but does endorse increase urinary frequency. However urine cultures were less than 100,000. No indication for treatment. Total Time Total Time Spent Total Time Spent (In Minutes): 35 Discharge Plan Discharge Items [facility] Reason For Visit: ABD PAIN Discharge Diagnosis: Cholecystitis COVID Activity: Resume your previous activity Non-emergency contact: Primary Care Provider Call non-emergency contact if: your symptoms worsen Follow-up/Referrals: Cortez BOND [Primary Care Provider] - Diet: Low Fat Addtl Attending Provider Instructions: Start taking ciprofloxacin/Flagyl for 4 more days. Follow-up with general surgery as an outpatient for elective cholecystectomy. Your test for COVID-19 came back as positive, which means you are infected with the novel coronavirus. We need to continue the following important precautions: Quarantine yourself in your home until: you have had no fever for at least 24 hours (that is 1 full day of no fever with out the use of medicine that reduces fevers) AND other symptoms have improved (for example, when your cough or shortness of breath have improved) AND at least 10 days have passed since your symptoms first appeared. If you live with others, isolate yourself to a single room away from them and avoid any contact during the quarantine time. Wash your hands frequently and cover your cough. Pending Studies at Discharge: No Stand-Alone Forms: My [facility] Skilled Items Patient informed of condition?: Yes Discharge Level of Care: Other Communicable Disease: Yes Discharge Prognosis: Stable Lines: None Urinary Catheter: No Medications and DC Order Prescriptions: New ciprofloxacin HCl 500 mg tablet 500 mg PO BID Qty: 10 RF: 0 metronidazole [Flagyl] 500 mg tablet 500 mg PO TID Qty: 20 RF: 0 Continued levalbuterol tartrate [Xopenex HFA] 45 mcg/actuation HFA aerosol inhaler 2 puffs INH QID PRN (Reason: Shortness Of Breath Or Wheezing) RF: 0 paroxetine HCl [Paxil] 20 mg tablet 20 mg PO DAILY RF: 0 tamsulosin 0.4 mg Capsule 0.4 mg PO DAILY RF: 0 ferrous sulfate 325 mg (65 mg iron) Tablet 325 mg PO DAILY RF: 0 losartan 25 mg Tablet 25 mg PO DAILY RF: 0 Gaviscon Extra Strength 160-105 mg Tablet,Chewable 1 tab PO QID PRN (Reason: .) RF: 0 Visine Tears 1-0.2-0.2 % Drops 2 drp OPR QID RF: 0 thiamine mononitrate (vit B1) 100 mg Tablet 100 mg PO DAILY RF: 0 folic acid 1 mg Tablet 1 mg PO QAM RF: 0 metformin 500 mg Tablet 500 mg PO HS RF: 0 nitroglycerin [Nitrostat] 0.4 mg Tablet, Sublingual 0.4 mg Sublingual UD PRN (Reason: Chest Pain) RF: 0 lactulose 10 gram/15 mL Solution 30 ml PO BID RF: 0 diltiazem HCl 180 mg Capsule,Extended Release 24hr 180 mg PO QAM RF: 0 acetaminophen-codeine 300-30 mg Tablet 2 tab PO TID PRN (Reason: Pain) RF: 0 fluticasone propion-salmeterol [Wixela Inhub] 100-50 mcg/dose Blister With Device 1 inh INHALATION BID RF: 0 digoxin 250 mcg (0.25 mg) Tablet 250 mcg PO DAILY RF: 0 Xifaxan 550 mg Tablet 550 mg PO BID RF: 0 Lupron Depot (3 month) 22.5 mg Syringe Kit 22.5 mg IM UD RF: 0 sucralfate [Carafate] 1 gram tablet 1 g PO TID 56 Days Qty: 168 RF: 0 pantoprazole 40 mg Tablet,Delayed Release (Dr/Ec) 40 mg PO BID 56 Days Qty: 112 RF: 0 dicyclomine 20 mg Tablet 20 mg PO BID RF: 0 cyanocobalamin (vitamin B-12) 500 mcg Tablet 500 mcg PO DAILY RF: 0 Discharge Orders: Discharge Order (Routine); Ordered 07/13/20 Ordered By: Jannet Moya Admission Data Admit Date/Time: 07/09/20 15:35 Attending Provider: Jannet Moya Admit Provider: Dilip Munoz Primary Care Provider: Cortez BOND Other Providers: Dilip Munoz ; Kelly Calix
[2020-07-13] MEDS: DIGOXIN 0.25 MG TAB PO SCH (16:36)
[2020-07-13] MEDS: ENOXAPARIN INJ 40 MG/0.4 ML SYR SQ SCH (16:36)
== END 2020-07-13 17:26 | DRG 444 ==
LOC: ED 10:16 → 2W 15:35 → SUATTDRO 15:35 → 2W 16:43

== ENCOUNTER 2020-11-03 14:23 | Inpatient (IN) ==
[2020-11-03] MEDS ORDERED: SODIUM CHLORIDE 0.9% 1000ML 1,000 ML IV STA (15:12)
[2020-11-03] MEDS ORDERED: SODIUM CHLORIDE 0.9% 500 ML IV SCH (15:15)
--- NOTE | 2020-11-03 15:29 | XRay Report ---
XR chest 1V portable HISTORY: 80 years-old Male AMS . Acutely altered mental status COMPARISON: Chest radiograph 07/10/2020 TECHNIQUE: Portable AP view of the chest FINDINGS: Cardiac silhouette is enlarged. Pulmonary vascular congestion. Emphysema. Mild interstitial coarsenin g. Blunting of the costophrenic angles. Mild asymmetric right lung base opacities. Bones appear gross ly intact. IMPRESSION: 1. Cardiomegaly with pulmonary vascular congestion. 2. Emphysema with similar appearing interstitial coarsening. 3. Trace pleural effusions. 4. Mild asymmetric right lung base opacities suggestive of atelectasis versus pneumonitis. ACT 112: Negative or not required by law. The above report was generated using voice recognition software. It may contain grammatical, syntax o r spelling errors. Electronically signed by: Isrrael Chin M.D. 11/03/2020 3:27 PM
[2020-11-03 15:31] LABS: Basophils # (auto) 0.06 K/uL (0-0.2); Basophils % (auto) 1.1 %; Eosinophils # (auto) 0.06 K/uL (0-0.5); Eosinophils % (auto) 1.1 %; Hematocrit (blood only) 33.6 % (42-52); Mean Corpuscular Hemoglobin 32.6 pg (25-34); Mean Corpuscular Hgb Conc 32.7 g/dL (32-36); Mean Corpuscular Volume 99.7 fL (80-100); Mean Platelet Volume 10.8 fL (7.4-10.4); Monocytes # (auto) 0.52 K/uL (0.11-0.59); Monocytes % (auto) 9.7 %; Neutrophils # (auto) 3.91 K/uL (1.4-6.5); Neutrophils % (auto) 73.1 %; Platelet Count 140 K/uL (130-400); RDW Standard Deviation 62.6 fL (36.4-46.3); Red Blood Count 3.37 M/uL (4.7-6.1); White Blood Count 5.35 K/uL (4.8-10.8)
[2020-11-03 15:37] LABS: Albumin Level 3.3 gm/dl (3.4-5.0); BUN Creatinine Ratio 16.8 (10-20); Calcium 9.5 mg/dl (8.5-10.1); Creatinine Clr Calc Pharmacy 70.3 ml/min; Est GFR (African American) 88.5 ml/min; Est GFR (Non-African American) 76.4 ml/min; Magnesium 2.2 mg/dl (1.8-2.4); Potassium 4.3 mmol/L (3.5-5.1)
[2020-11-03 15:42] LABS: Albumin Globulin Ratio 0.8 (0.9-2); Bilirubin,Total 1.4 mg/dl (0.2-1); Globulin 4.1 gm/dl (2.5-4.0); Total Protein 7.4 gm/dl (6.4-8.2); Troponin I 0.031 ng/ml (0-0.045)
[2020-11-03 15:44] LABS: INR 1.1 (0.9-1.1); Prothrombin Time 11.4 Seconds (9.0-12.0)
--- NOTE | 2020-11-03 16:12 | Emergency Department Note ---
Impression & Plan Acute confusion, Bradycardia, Hyperammonemia ED Provider Note INFORMANT: Patient ED PROVIDER(S): Demetrius Roach MD CHIEF COMPLAINT: Confusion PLAN: Disposition: Admitted Condition: Good Outpatient prescription management: none Referral: None MEDICAL DECISION MAKING: Patient presented because of confusion that has been escalating over the last 2 weeks. He had a work-up obtained. He was found to have mild hyperammonemia. He was given lactulose for this. The patient's ECG showed a slow A. fib. He had a mild anemia but no leukocytosis on CBC. His liver functions revealed a mi ld elevation of his T bili but not significantly different than prior. Troponin was negative. CT scan of his head did not reveal any acute pathology. Chest x- ray question some atelectasis of but the patient has no respiratory symptoms. Cardiac monitoring was concerning of the patient had several episodes of heart rates in the 30s. This may be contributing to his issue as his record review indicates no significant bradycardic episodes in the past. I discussed this with his medical provider at the shelter. Further management and work-up in the hospital was deemed appropriate. [facility] The patient was evaluated by the team and admitted for further management. Triage Nursing notes reviewed and agree them. Vital Signs: reviewed and remarkable for bradycardia Differential diagnosis: Hyperammonemia, infection, dehydration, metabolic abnormality, hypo/hyperglycemia, electrolyte disturbance, anemia, hypoxia, cardiac sources, intracerebral event, toxicologic, neurologic, as well as other pathologies. Diagnostics interpreted by me: ECG: Twelve-lead ECG reveals atrial fibrillation with slow ventricular response at 47 bpm. Nonspecific interventricular conduction block present. Left axis deviation and nonspecific ST present. Cardiac Monitoring: Cardiac monitoring ordered by me: The patient was placed on continuous cardiac monitoring and observed. It revealed atrial fibrillation with slow ventricular response at 39 beats per minute. Imaging studies: Head CT: A noncontrast CT scan of the head was performed and was negative for tumor, fracture, intracranial hemorrhage, or other acute pathology. Chest x-ray reveals mild atelectatic change in the bases. Radiology questioned possible infiltrate however the patient has no fever, respiratory symptoms, cough, shortness of breath, or leukocytosis. Suspect atelectasis. HPI: The patient is a 80 year old male who presents to the Emergency Room with complaints of increased confusion. This started about 2 weeks ago and is worsening. Patient is currently incarcerated. The guard that is with him noticed him from the cell block and states that he is noticeably different over the last 2 weeks. He also notes he has a history of liver issues and high ammonia. He was sent to the ER for further evaluation. The patient also notes the following associated symptoms, fatigue. The patient has found no relieving factors. Current pain is rated as 0/10. Pt denies LOC, headache, fevers, chills, diaphoresis, visual changes, neck pain, chest pain, breathing difficulties, nausea, vomiting, abdominal pain, back pain, melena, hematochezia, urinary symptoms, numbness, focal weakness, lymphadenopathy, rash, or other complaints. ROS: See above HPI for pertinent positives & negatives. A total of 10 systems reviewed and were otherwise negative. PAST MEDICAL HISTORY:See Below , COPD, cirrhosis, A. fib PAST SURGICAL HISTORY:See Below, FAMILY HISTORY:See Below SOCIAL HISTORY:See Below, incarcerated HOME MEDICATIONS:See Below ALLERGIES:See Below VITALS:See Below PHYSICAL EXAMINATION: ,GENERAL: Awake, but tired-appearing, in no distress HENT: Normocephalic, atraumatic. Oropharynx unremarkable. EYES: Mildly pale conjunctiva. Sclera non-icteric. NECK: Inspection normal. Non-tender. Supple. No nuchal rigidity. FROM. No masses. RESPIRATORY: Clear to auscultation. No wheezes. No rales. Normal respiratory effort. CARDIAC: Bradycardic rate. Irregular rhythm. No murmurs. No rubs. Extremities warm and well perfused. Pulses equal. No JVD. GI: Soft, non-distended. No tenderness to palpation. No rebound or guarding. No masses. RECTAL: Deferred. MUSCULOSKELETAL: Atraumatic. Chest examination reveals no tenderness. The back is symmetrical on inspection without obvious abnormality. There is no CVA tenderness to palpation. No joint edema. LOWER EXTREMITIES: Calves are equal size bilaterally and non-tender. Trace edema. No discoloration. NEURO: Normal sensorium. No sensory or motor deficits noted. SKIN: No rash or jaundice noted. Demetirus Roach MD Past Med/Surg History Medical History (Updated 11/03/20 @ 22:56 by Demetrius Roach MD) Allergic rhinitis Anemia S/p transfusion 05/2020 per records - secondary to GI bleed Anxiety Atrial fibrillation No longer on Coumadin (per records - no AC secondary to thrombocytopenia related to cirrhosis and bleeding risk secondary to falls) Bone lesion Metastasis from prostate cancer -pt currently declining treatment BPH (benign prostatic hyperplasia) Chronic back pain Chronic pulmonary embolism Dx'ed [address] Cirrhosis On Lactulose and Xifaxan COPD (chronic obstructive pulmonary disease) COVID-19 virus infection Tested Covid positive 07/09/20= pt admitted to [facility]- discharged 07/13/20 SCI emily states that he is in quarantine until 07/24/2020. He current complaints is still having alot of pain and nausea from gallstones. Depressive disorder Diabetes mellitus, type 2 Diastolic dysfunction DVT (deep venous thrombosis) Dx'ed 2018- not a candidate for AC GERD (gastroesophageal reflux disease) H/O: CVA (cerebrovascular accident) SCI states it has been several years ago Per records (12/10/17 cardio consult)- "suspected in October 2017" HTN (hypertension) Peptic ulcer disease 05/2020 bleeding ulcer from Toradol treatment for pain from gallbladder and bone pain- was transferred to [facility] 05/22/20 due to uncontrolled GI bleeding Portal hypertension Presence of IVC filter Prostate cancer SCI emily states that he is refusing treatment for the prostate cancer and it has mets to bone and has alot of pain. Sciatica Tremor Surgical History H/O right knee surgery History of appendectomy History of cataract surgery left. 12/2018. 2mg versed. 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 current occupational status: unemployed Other Information That Helps Us Care for You: No Feels Safe at Home: Yes Safety Concerns: Feels Safe At This Time caffeine: Yes (2 cups/day) during the past year weight has: remained stable Assistive Devices: None Allergies Allergies Allergy/AdvReac Type Severity Reaction Status Date / Time doxazosin [From Cardura] Allergy Unknown Unknown Verified 11/03/20 15:30 prazosin [From Minipress] Allergy Unknown Unknown Verified 11/03/20 15:30 Home Meds Home Medications Medication Instructions Recorded Confirmed folic acid 1 mg PO QAM 06/12/18 11/03/20 lactulose 30 ml PO BID 06/12/18 11/03/20 metformin 500 mg PO HS 06/12/18 11/03/20 nitroglycerin [Nitrostat] 0.4 mg SUBLINGUAL UD PRN 06/12/18 11/03/20 diltiazem HCl 180 mg PO QAM 12/06/18 11/03/20 tamsulosin 0.4 mg PO QAM 02/06/19 11/03/20 acetaminophen-codeine 2 tab PO BID PRN 05/08/20 11/03/20 digoxin 250 mcg PO QAM 05/08/20 11/03/20 fluticasone propion-salmeterol 1 inh INHALATION BID 05/08/20 11/03/20 [Wixela Inhub] dicyclomine 20 mg PO BID 05/22/20 11/03/20 Gaviscon Extra Strength 1 tab PO QID PRN 07/09/20 11/03/20 losartan 25 mg PO QAM 07/09/20 11/03/20 thiamine mononitrate (vit B1) 100 mg PO QAM 07/09/20 11/03/20 cholecalciferol (vitamin D3) 25 mcg PO QAM 07/26/20 11/03/20 [Vitamin D3] leuprolide (3 month) 22.5 mg (3 22.5 mg SUBCUT UD ea 09/21/20 11/03/20 month) subcutaneous syringe sucralfate 1 gram tablet 1 g PO QID tab 09/21/20 11/03/20 paroxetine HCl 30 mg PO DAILY 11/03/20 11/03/20 Previous Rx's Medication Instructions Recorded pantoprazole 40 mg PO BID 56 Days #112 tab 05/11/20 Results & Data (ED) Vital Signs Vital Signs - 24 hr 11/03/20 14:33 11/03/20 14:36 11/03/20 14:38 Temperature 36.8 C Temperature Source Oral Pulse Rate - Lying Pulse Rate - Sitting Pulse Rate - Standing Pulse Rate 47 L 39 L 42 L Pulse Rate [Right Finger] Pulse Rate from SpO2 Sensor 43 L 45 L Pulse Rhythm Irregular Respiratory Rate 24 20 18 Respiratory Effort / Characteristics Non-Labored Spontaneous Respiratory Depth Normal Blood Pressure - Lying Blood Pressure - Sitting Blood Pressure- Standing Blood Pressure 153/73 H 153/73 H Blood Pressure [Right Arm] Blood Pressure Mean 99 99 Blood Pressure Mean [Right Arm] Blood Pressure Position Sitting Pulse Oximetry 96 96 97 Oxygen Delivery Method Room Air Sepsis Recent Fever Within 48 Hours Yes Sepsis New/Unexplained Change in Mental Status Yes Sepsis Action Taken by Nursing Previously Notified 11/03/20 15:00 11/03/20 15:30 11/03/20 16:17 Temperature Temperature Source Pulse Rate - Lying Pulse Rate - Sitting Pulse Rate - Standing Pulse Rate 49 L 51 L 55 L Pulse Rate [Right Finger] Pulse Rate from SpO2 Sensor 51 L 50 L 62 Pulse Rhythm Respiratory Rate 21 18 13 Respiratory Effort / Characteristics Respiratory Depth Blood Pressure - Lying Blood Pressure - Sitting Blood Pressure- Standing Blood Pressure Blood Pressure [Right Arm] Blood Pressure Mean Blood Pressure Mean [Right Arm] Blood Pressure Position Pulse Oximetry 95 97 96 Oxygen Delivery Method Sepsis Recent Fever Within 48 Hours Sepsis New/Unexplained Change in Mental Status Sepsis Action Taken by Nursing 11/03/20 16:30 11/03/20 16:37 11/03/20 16:38 Temperature Temperature Source Pulse Rate - Lying Pulse Rate - Sitting Pulse Rate - Standing Pulse Rate 60 54 L Pulse Rate [Right Finger] 55 L Pulse Rate from SpO2 Sensor 41 L 55 L Pulse Rhythm Respiratory Rate 25 H 16 22 Respiratory Effort / Characteristics Respiratory Depth Blood Pressure - Lying Blood Pressure - Sitting Blood Pressure- Standing Blood Pressure 163/78 H Blood Pressure [Right Arm] 163/78 H Blood Pressure Mean 106 Blood Pressure Mean [Right Arm] 106 Blood Pressure Position Pulse Oximetry 95 93 94 Oxygen Delivery Method Room Air Sepsis Recent Fever Within 48 Hours Sepsis New/Unexplained Change in Mental Status Sepsis Action Taken by Nursing 11/03/20 17:00 11/03/20 17:30 11/03/20 17:35 Temperature Temperature Source Pulse Rate - Lying 53 L Pulse Rate - Sitting 56 L Pulse Rate - Standing 63 Pulse Rate 64 Pulse Rate [Right Finger] Pulse Rate from SpO2 Sensor 39 L 54 L Pulse Rhythm Respiratory Rate 21 15 Respiratory Effort / Characteristics Respiratory Depth Blood Pressure - Lying 159/69 H Blood Pressure - Sitting 165/74 H Blood Pressure- Standing 157/66 H Blood Pressure Blood Pressure [Right Arm] Blood Pressure Mean Blood Pressure Mean [Right Arm] Blood Pressure Position Pulse Oximetry 94 95 Oxygen Delivery Method Sepsis Recent Fever Within 48 Hours Sepsis New/Unexplained Change in Mental Status Sepsis Action Taken by Nursing 11/03/20 17:47 11/03/20 17:48 11/03/20 18:28 Temperature Temperature Source Pulse Rate - Lying Pulse Rate - Sitting Pulse Rate - Standing Pulse Rate Pulse Rate [Right Finger] 51 L Pulse Rate from SpO2 Sensor 55 L 55 L Pulse Rhythm Respiratory Rate 26 H 16 Respiratory Effort / Characteristics Respiratory Depth Blood Pressure - Lying Blood Pressure - Sitting Blood Pressure- Standing Blood Pressure 159/69 H 165/74 H Blood Pressure [Right Arm] 158/73 H Blood Pressure Mean 99 104 Blood Pressure Mean [Right Arm] 101 Blood Pressure Position Pulse Oximetry 95 93 94 Oxygen Delivery Method Room Air Sepsis Recent Fever Within 48 Hours Sepsis New/Unexplained Change in Mental Status Sepsis Action Taken by Nursing Laboratory Data Result diagrams: 11/03/20 14:37 11/03/20 14:37 Lab Results 11/03/20 11/03/20 11/03/20 Range/Units 14:37 14:37 14:37 WBC 5.35 (4.8-10.8) K/uL RBC 3.37 L (4.7-6.1) M/uL Hgb 11.0 L (14.0-18.0) g/dL Hct 33.6 L (42-52) % MCV 99.7 (80-100) fL MCH 32.6 (25-34) pg MCHC 32.7 (32-36) g/dL RDW Std Deviation 62.6 H (36.4-46.3) fL RDW Coeff of Charo 17.0 H (11.5-14.5) % Plt Count 140 (130-400) K/uL MPV 10.8 H (7.4-10.4) fL Immature Gran % (Auto) 0.0 % Neut % (Auto) 73.1 % Lymph % (Auto) 15.0 % Collin % (Auto) 9.7 % Eos % (Auto) 1.1 % Baso % (Auto) 1.1 % Neut # (Auto) 3.91 (1.4-6.5) K/uL Lymph # (Auto) 0.80 L (1.2-3.4) K/uL Collin # (Auto) 0.52 (0.11-0.59) K/uL Eos # (Auto) 0.06 (0-0.5) K/uL Baso # (Auto) 0.06 (0-0.2) K/uL Immature Gran # (Auto) 0.00 (0.00-0.02) K/uL PT 11.4 (9.0-12.0) Seconds INR 1.1 (0.9-1.1) Sodium 139 (136-145) mmol/L Potassium 4.3 (3.5-5.1) mmol/L Chloride 108 H (98-107) mmol/L Carbon Dioxide 27 (21-32) mmol/L Anion Gap 4.0 (3-11) BUN 16 (7-18) mg/dl Creatinine 0.95 (0.6-1.4) mg/dl Est Cr Clr Drug Dosing 70.3 ml/min Est GFR ( Amer) 88.5 ml/min Est GFR (Non-Af Amer) 76.4 ml/min BUN/Creatinine Ratio 16.8 (10-20) Glucose 149 H (70-99) mg/dl Calcium 9.5 (8.5-10.1) mg/dl Magnesium 2.2 (1.8-2.4) mg/dl Total Bilirubin 1.4 H (0.2-1) mg/dl AST 24 (15-37) U/L ALT 19 (12-78) U/L Alkaline Phosphatase 110 (45-117) U/L Ammonia (11-32) umol/L Troponin I 0.031 (0-0.045) ng/ml Total Protein 7.4 (6.4-8.2) gm/dl Albumin 3.3 L (3.4-5.0) gm/dl Globulin 4.1 H (2.5-4.0) gm/dl Albumin/Globulin Ratio 0.8 L (0.9-2) Procalcitonin (0-0.5) ng/ml Digoxin (0.8-2.0) ng/ml COVID-19 Eval Order SARS-CoV-2 (PCR) (Negative) 11/03/20 11/03/20 11/03/20 Range/Units 14:37 15:32 18:03 WBC (4.8-10.8) K/uL RBC (4.7-6.1) M/uL Hgb (14.0-18.0) g/dL Hct (42-52) % MCV (80-100) fL MCH (25-34) pg MCHC (32-36) g/dL RDW Std Deviation (36.4-46.3) fL RDW Coeff of Charo (11.5-14.5) % Plt Count (130-400) K/uL MPV (7.4-10.4) fL Immature Gran % (Auto) % Neut % (Auto) % Lymph % (Auto) % Collin % (Auto) % Eos % (Auto) % Baso % (Auto) % Neut # (Auto) (1.4-6.5) K/uL Lymph # (Auto) (1.2-3.4) K/uL Collin # (Auto) (0.11-0.59) K/uL Eos # (Auto) (0-0.5) K/uL Baso # (Auto) (0-0.2) K/uL Immature Gran # (Auto) (0.00-0.02) K/uL PT (9.0-12.0) Seconds INR (0.9-1.1) Sodium (136-145) mmol/L Potassium (3.5-5.1) mmol/L Chloride (98-107) mmol/L Carbon Dioxide (21-32) mmol/L Anion Gap (3-11) BUN (7-18) mg/dl Creatinine (0.6-1.4) mg/dl Est Cr Clr Drug Dosing ml/min Est GFR ( Amer) ml/min Est GFR (Non-Af Amer) ml/min BUN/Creatinine Ratio (10-20) Glucose (70-99) mg/dl Calcium (8.5-10.1) mg/dl Magnesium (1.8-2.4) mg/dl Total Bilirubin (0.2-1) mg/dl AST (15-37) U/L ALT (12-78) U/L Alkaline Phosphatase (45-117) U/L Ammonia 38.0 H (11-32) umol/L Troponin I (0-0.045) ng/ml Total Protein (6.4-8.2) gm/dl Albumin (3.4-5.0) gm/dl Globulin (2.5-4.0) gm/dl Albumin/Globulin Ratio (0.9-2) Procalcitonin < 0.05 (0-0.5) ng/ml Digoxin (0.8-2.0) ng/ml COVID-19 Eval Order Covid19 at [facility] SARS-CoV-2 (PCR) (Negative) 11/03/20 11/03/20 Range/Units 18:03 18:22 WBC (4.8-10.8) K/uL RBC (4.7-6.1) M/uL Hgb (14.0-18.0) g/dL Hct (42-52) % MCV (80-100) fL MCH (25-34) pg MCHC (32-36) g/dL RDW Std Deviation (36.4-46.3) fL RDW Coeff of Charo (11.5-14.5) % Plt Count (130-400) K/uL MPV (7.4-10.4) fL Immature Gran % (Auto) % Neut % (Auto) % Lymph % (Auto) % Collin % (Auto) % Eos % (Auto) % Baso % (Auto) % Neut # (Auto) (1.4-6.5) K/uL Lymph # (Auto) (1.2-3.4) K/uL Collin # (Auto) (0.11-0.59) K/uL Eos # (Auto) (0-0.5) K/uL Baso # (Auto) (0-0.2) K/uL Immature Gran # (Auto) (0.00-0.02) K/uL PT (9.0-12.0) Seconds INR (0.9-1.1) Sodium (136-145) mmol/L Potassium (3.5-5.1) mmol/L Chloride (98-107) mmol/L Carbon Dioxide (21-32) mmol/L Anion Gap (3-11) BUN (7-18) mg/dl Creatinine (0.6-1.4) mg/dl Est Cr Clr Drug Dosing ml/min Est GFR ( Amer) ml/min Est GFR (Non-Af Amer) ml/min BUN/Creatinine Ratio (10-20) Glucose (70-99) mg/dl Calcium (8.5-10.1) mg/dl Magnesium (1.8-2.4) mg/dl Total Bilirubin (0.2-1) mg/dl AST (15-37) U/L ALT (12-78) U/L Alkaline Phosphatase (45-117) U/L Ammonia (11-32) umol/L Troponin I (0-0.045) ng/ml Total Protein (6.4-8.2) gm/dl Albumin (3.4-5.0) gm/dl Globulin (2.5-4.0) gm/dl Albumin/Globulin Ratio (0.9-2) Procalcitonin (0-0.5) ng/ml Digoxin 1.3 (0.8-2.0) ng/ml COVID-19 Eval Order SARS-CoV-2 (PCR) NEGATIVE (Negative) Administered Medications Dicyclomine HCl (Dicyclomine Hcl 20 Mg Tab) 20 mg PO BID ON LICENSE OF [facility] Stop: 12/03/20 20:59 Last Admin: 11/03/20 22:10 Dose: 20 mg Documented by: [id number] Heparin Sodium (Porcine) (Heparin Sod 5,000 Unit/0.5 Ml Vial) 5,000 units SQ Q8 STEPHANE Stop: 12/03/20 21:59 Last Admin: 11/03/20 22:10 Dose: Not Given Documented by: [id number] Sodium Chloride (Nss 1000ml) 1,000 mls @ 125 mls/hr IV .Q8H STA Stop: 11/03/20 23:11 Last Admin: 11/03/20 15:45 Dose: 125 mls/hr Documented by: [id number] Lactulose (Lactulose Syrup 20 Gm/30 Ml Udc) 20 gm PO BID STEPHANE Stop: 12/03/20 21:59 Last Admin: 11/03/20 22:10 Dose: 20 gm Documented by: [id number] Pantoprazole Sodium (Pantoprazole 40 Mg Tab) 40 mg PO BID STEPHANE Stop: 12/03/20 20:59 Last Admin: 11/03/20 22:11 Dose: 40 mg Documented by: [id number] Sucralfate (Sucralfate 1 Gm Tab) 1 gm PO QID STEPHANE Stop: 12/03/20 20:59 Last Admin: 11/03/20 22:11 Dose: 1 gm Documented by: [id number] Discontinued Medications Sodium Chloride (Nss) 500 mls @ 999 mls/hr IV .Q31M STEPHANE Stop: 11/03/20 15:45 Last Infusion: 11/03/20 15:45 Dose: 0 mls/hr Documented by: [id number] Admin: 11/03/20 15:18 Dose: 999 mls/hr Documented by: [id number] Lactulose (Lactulose Syrup 30 Gm/45 Ml Udp) 30 gm PO NOW STA Stop: 11/03/20 17:34 Last Admin: 11/03/20 18:05 Dose: 30 gm Documented by: [id number] Imaging Data Radiologist's Impression: Chest X-Ray 11/03/20 15:12 XR chest 1V portable HISTORY: 80 years-old Male AMS . Acutely altered mental status COMPARISON: Chest radiograph 07/10/2020 TECHNIQUE: Portable AP view of the chest FINDINGS: Cardiac silhouette is enlarged. Pulmonary vascular congestion. Emphysema. Mild interstitial coarsening. Blunting of the costophrenic angles. Mild asymmetric right lung base opacities. Bones appear grossly intact. IMPRESSION: 1. Cardiomegaly with pulmonary vascular congestion. 2. Emphysema with similar appearing interstitial coarsening. 3. Trace pleural effusions. 4. Mild asymmetric right lung base opacities suggestive of atelectasis versus pneumonitis. ACT 112: Negative or not required by law. The above report was generated using voice recognition software. It may contain grammatical, syntax or spelling errors. Electronically signed by: Isrrael Chin M.D. 11/03/2020 3:[address] 11/03/20 15:13 CT head/brain wo con CLINICAL HISTORY: 80 years-old Male with Confusion. Acutely altered mental status TECHNIQUE: Multiple axial CT images of the head were obtained without contrast. A dose lowering technique was utilized adhering to the principles of ALARA. CT DOSE: 884.08 mGy.cm COMPARISON: Head CT 05/08/2020. FINDINGS: No acute intracranial hemorrhage, midline shift, intra-axial mass, hydrocephalus, territorial ischemia or abnormal extra-axial collection. Age- related involutional changes. White matter hypodensities suggestive of chronic microvascular ischemic disease. Motion degraded exam. 10 mm exophytic calcification involves the left temporal bone at the level of the left cerebellar pontine angle on image 10 which is unchanged from comparison. The calvarium is intact. Mastoid air cells are clear. Small focus of polypoid mucosal thickening involves the posterior right ethmoid air cell. Unremarkable soft tissues. Prior bilateral lens repair. IMPRESSION: No acute intracranial abnormality. ACT 112: Negative or not required by law. The above report was generated using voice recognition software. It may contain grammatical, syntax or spelling errors. Electronically signed by: Isrrael Chin M.D. 11/03/2020 4:18 PM Discharge Plan Visit Data Chief Complaint: Confusion Stated Complaint: CONFUSION ED Provider: Demetrius Roach Discharge Problem: Acute confusion, Bradycardia, Hyperammonemia Patient Disposition: Admitted As Inpatient Discharge Instructions Interventions: ED Discharge Assessment Last Done: 11/03/20 20:16
--- NOTE | 2020-11-03 16:19 | CT Scan Report ---
CT head/brain wo con CLINICAL HISTORY: 80 years-old Male with Confusion. Acutely altered mental status TECHNIQUE: Multiple axial CT images of the head were obtained without contrast. A dose lowering tech nique was utilized adhering to the principles of ALARA. CT DOSE: 884.08 mGy.cm COMPARISON: Head CT 05/08/2020. FINDINGS: No acute intracranial hemorrhage, midline shift, intra-axial mass, hydrocephalus, territorial ischemi a or abnormal extra-axial collection. Age-related involutional changes. White matter hypodensities vang ggestive of chronic microvascular ischemic disease. Motion degraded exam. 10 mm exophytic calcificati on involves the left temporal bone at the level of the left cerebellar pontine angle on image 10 whic h is unchanged from comparison. The calvarium is intact. Mastoid air cells are clear. Small focus of polypoid mucosal thickening inv olves the posterior right ethmoid air cell. Unremarkable soft tissues. Prior bilateral lens repair. IMPRESSION: No acute intracranial abnormality. ACT 112: Negative or not required by law. The above report was generated using voice recognition software. It may contain grammatical, syntax o r spelling errors. Electronically signed by: Isrrael Chin M.D. 11/03/2020 4:18 PM
[2020-11-03] MEDS ORDERED: LACTULOSE SYRUP 30 GM/45 ML UDP PO STA (17:33)
--- NOTE | 2020-11-03 19:22 | History & Physical Report ---
Date of Service November 03, 2020 Assessment & Plan (1) Acute confusion: -Admit to telemetry -Patient presenting from [facility] for evaluation of confusion -May be due to recent addition of Tylenol with codeine -Check UDS -History of atrial fibrillation, not anticoagulated, therefore will check brain MRI to evaluate for CVA -UA (although afebrile, no leukocytosis) -History of cirrhosis however does not seem to be encephalopathic on exam - mildly elevated ammonia, received extra dose of lactulose in ED. Continue home dose for now. (2) Bradycardia: (3) Atrial fibrillation: -Found to be in slow atrial fibrillation with rates in the high 30s at times -Check dig level -Hold dig and diltiazem -Cardiology consult, patient [facility] with [facility] -Not anticoagulated secondary to history of GI bleeding (4) Abnormal chest x-ray: -CXR shows right lung base opacities suggestive of atelectasis versus pneumonitis -No pulmonary symptoms -Afebrile, no leukocytosis -Check procalcitonin (5) Diabetes mellitus, type 2: -Hgb A1c 5.3 04/2020 -Hold metformin and utilize NovoLog per protocol while hospitalized (6) Cirrhosis: -Continue lactulose (7) HTN (hypertension): -BP controlled, continue losartan (8) Peptic ulcer disease: -Continue PPI and sucralfate (9) COPD (chronic obstructive pulmonary disease): -No signs of acute exacerbation, continue home inhalers (10) Prostate cancer: -Receives Lupron injections (11) DVT prophylaxis: -SQ heparin History of Present Illness Chief Complaint: Confusion [facility] 80[facility], inmate at [facility], with H prostate cancer on Lupron, DM type II, atrial fibrillation not anticoagulated secondary to history of GI bleeding, peptic ulcer disease, cirrhosis, COPD, and other problems listed below who presents to the ED from [facility] for evaluation of confusion. Patient reports he has had increased confusion over the past couple weeks. Reports that he feels he cannot focus. Reports having episodes of lightheadedness and dizziness however no syncopal event. Denies any unilateral weakness, numbness, tingling. Upon review of records from [facility], patient was started on on Tylenol with Codeine on 10/14/2020. According to the staff in the [facility], patient has been receiving 2 tablets twice a day every day. Patient reports an occasional fluttering in his chest however no chest pain or shortness of breath. Reports compliance with all medications. Has been having 2-3 bowel movements per day and compliant with lactulose. Denies abdominal pain, nausea, vomiting. Reports some occasional burning with urination however none recently. Denies fevers and chills. In the ED, patient is found to be in slow atrial fibrillation with rates in the high 30s at times. BP is stable. Labs show mildly elevated ammonia at 38. Head CT negative for acute findings. Patient was given lactulose and IVF. Allergies Allergy/AdvReac Type Severity Reaction Status Date / Time doxazosin [From Cardura] Allergy Unknown Unknown Verified 11/03/20 15:30 prazosin [From Minipress] Allergy Unknown Unknown Verified 11/03/20 15:30 Home Medications Medication Instructions Recorded Confirmed Type folic acid 1 mg PO QAM 06/12/18 11/03/20 History lactulose 30 ml PO BID 06/12/18 11/03/20 History metformin 500 mg PO HS 06/12/18 11/03/20 History nitroglycerin [Nitrostat] 0.4 mg SUBLINGUAL UD PRN 06/12/18 11/03/20 History diltiazem HCl 180 mg PO QAM 12/06/18 11/03/20 History tamsulosin 0.4 mg PO QAM 02/06/19 11/03/20 History acetaminophen-codeine 2 tab PO BID PRN 05/08/20 11/03/20 History digoxin 250 mcg PO QAM 05/08/20 11/03/20 History fluticasone propion-salmeterol 1 inh INHALATION BID 05/08/20 11/03/20 History [Wixela Inhub] pantoprazole 40 mg PO BID 56 Days #112 tab 05/11/20 11/03/20 Rx dicyclomine 20 mg PO BID 05/22/20 11/03/20 History Gaviscon Extra Strength 1 tab PO QID PRN 07/09/20 11/03/20 History losartan 25 mg PO QAM 07/09/20 11/03/20 History thiamine mononitrate (vit B1) 100 mg PO QAM 07/09/20 11/03/20 History cholecalciferol (vitamin D3) 25 mcg PO QAM 07/26/20 11/03/20 History [Vitamin D3] leuprolide (3 month) 22.5 mg (3 22.5 mg SUBCUT UD ea 09/21/20 11/03/20 History month) subcutaneous syringe sucralfate 1 gram tablet 1 g PO QID tab 09/21/20 11/03/20 History paroxetine HCl 30 mg PO DAILY 11/03/20 11/03/20 History Past Med/Surg History Medical History (Updated 11/03/20 @ 19:15 by ADRIANE Mckenzie) Allergic rhinitis Anemia S/p transfusion 05/2020 per records - secondary to GI bleed Anxiety Atrial fibrillation No longer on Coumadin (per records - no AC secondary to thrombocytopenia related to cirrhosis and bleeding risk secondary to falls) Bone lesion Metastasis from prostate cancer -pt currently declining treatment BPH (benign prostatic hyperplasia) Chronic back pain Chronic pulmonary embolism Dx'ed [address] Cirrhosis On Lactulose and Xifaxan COPD (chronic obstructive pulmonary disease) COVID-19 virus infection Tested Covid positive 07/09/20= pt admitted to [facility]- discharged 07/13/20 [facility] emily states that he is in quarantine until 07/24/2020. He current complaints is still having alot of pain and nausea from gallstones. Depressive disorder Diabetes mellitus, type 2 Diastolic dysfunction DVT (deep venous thrombosis) Dx'ed 2018- not a candidate for AC GERD (gastroesophageal reflux disease) H/O: CVA (cerebrovascular accident) SCI states it has been several years ago Per records (12/10/17 cardio consult)- "suspected in October 2017" HTN (hypertension) Peptic ulcer disease 05/2020 bleeding ulcer from Toradol treatment for pain from gallbladder and bone pain- was transferred to [facility] 05/22/20 due to uncontrolled GI bleeding Portal hypertension Presence of IVC filter Prostate cancer SCI emily states that he is refusing treatment for the prostate cancer and it has mets to bone and has alot of pain. Sciatica Tremor Surgical History H/O right knee surgery History of appendectomy History of cataract surgery left. 12/2018. 2mg versed. 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 Potter's addendum for physical exam. Results & Data Results & Data ([facility]) Vital Signs (Past 12 Hours) Vital Signs Temp Pulse Pulse Resp BP BP Pulse Ox 11/03/20 19:02 93 11/03/20 18:28 51 L 16 158/73 H 94 11/03/20 17:48 165/74 H 93 11/03/20 17:47 26 H 159/69 H 95 11/03/20 17:30 15 95 11/03/20 17:00 64 21 94 11/03/20 16:38 54 L 22 163/78 H 94 11/03/20 16:37 55 L 16 163/78 H 93 11/03/20 16:30 60 25 H 95 11/03/20 16:17 55 L 13 96 11/03/20 15:30 51 L 18 97 11/03/20 15:00 49 L 21 95 11/03/20 14:38 42 L 18 97 11/03/20 14:36 39 L 20 153/73 H 96 11/03/20 14:33 36.8 C 47 L 24 153/73 H 96 Laboratory Results Short CBC 11/03/20 Range/Units 14:37 WBC 5.35 (4.8-10.8) K/uL Hgb 11.0 L (14.0-18.0) g/dL Hct 33.6 L (42-52) % Plt Count 140 (130-400) K/uL BMP 11/03/20 14:37 Sodium 139 Potassium 4.3 Chloride 108 H Carbon Dioxide 27 BUN 16 Creatinine 0.95 Glucose 149 H Calcium 9.5 Cardiac Enzymes 11/03/20 Range/Units 14:37 Troponin I 0.031 (0-0.045) ng/ml Liver Function 11/03/20 Range/Units 14:37 Total Bilirubin 1.4 H (0.2-1) mg/dl AST 24 (15-37) U/L ALT 19 (12-78) U/L Alkaline Phosphatase 110 (45-117) U/L Albumin 3.3 L (3.4-5.0) gm/dl Diagnostic Findings Chest X-Ray 11/03/20 15:12 XR chest 1V portable HISTORY: 80 years-old Male AMS . Acutely altered mental status COMPARISON: Chest radiograph 07/10/2020 TECHNIQUE: Portable AP view of the chest FINDINGS: Cardiac silhouette is enlarged. Pulmonary vascular congestion. Emphysema. Mild interstitial coarsening. Blunting of the costophrenic angles. Mild asymmetric right lung base opacities. Bones appear grossly intact. IMPRESSION: 1. Cardiomegaly with pulmonary vascular congestion. 2. Emphysema with similar appearing interstitial coarsening. 3. Trace pleural effusions. 4. Mild asymmetric right lung base opacities suggestive of atelectasis versus pneumonitis. ACT 112: Negative or not required by law. The above report was generated using voice recognition software. It may contain grammatical, syntax or spelling errors. Electronically signed by: Isrrael Chin M.D. 11/03/2020 3:[address] 11/03/20 15:13 CT head/brain wo con CLINICAL HISTORY: 80 years-old Male with Confusion. Acutely altered mental status TECHNIQUE: Multiple axial CT images of the head were obtained without contrast. A dose lowering technique was utilized adhering to the principles of ALARA. CT DOSE: 884.08 mGy.cm COMPARISON: Head CT 05/08/2020. FINDINGS: No acute intracranial hemorrhage, midline shift, intra-axial mass, hydrocephalus, territorial ischemia or abnormal extra-axial collection. Age- related involutional changes. White matter hypodensities suggestive of chronic microvascular ischemic disease. Motion degraded exam. 10 mm exophytic calcification involves the left temporal bone at the level of the left cerebellar pontine angle on image 10 which is unchanged from comparison. The calvarium is intact. Mastoid air cells are clear. Small focus of polypoid mucosal thickening involves the posterior right ethmoid air cell. Unremarkable soft tissues. Prior bilateral lens repair. IMPRESSION: No acute intracranial abnormality. ACT 112: Negative or not required by law. The above report was generated using voice recognition software. It may contain grammatical, syntax or spelling errors. Electronically signed by: Isrrael Chin M.D. 11/03/2020 4:18 PM Code Status & VTE Plan Code Status Patient is a full code as per my discussion with him. VTE Prophylaxis Plan VTE Prophylaxis will be ordered: Yes Supervising Physician Co-Signing Physician Notes Patient is a 80-year-old male with history of prostate cancer, atrial fibrillation, GI bleed, peptic ulcer disease, cirrhosis and other medical problems presents from [facility] for evaluation of worsening confusion and increased difficulty to concentrate since 2 weeks duration. He reports having intermittent dizziness but denies loss of consciousness, fall. He admits to having intermittent palpitations but denies any chest pain, shortness of breath, nausea, abdominal pain. He has been on lactulose and reports having loose bowels secondary to the same. He was found to be bradycardic while in ED. Digoxin levels are within normal limits. Lactulose is elevated mildly at 38. CT head showed no acute intracranial abnormality. Chest x-ray suggestive of cardiomegaly with pulmonary vascular congestion, emphysema, trace left pleural effusions, atelectasis. He is oriented to person, place while in ED. On further evaluation office records, patient was recently started on Tylenol with codeine on October 14 which he has been taking regularly. Physical Exam: Vitals signs as noted above General Appearance:Moderately built and nourished, no apparent distress Head: normocephalic, Atraumatic Eyes: normal inspection, EOMI Neck: supple, Trachea midline Respiratory/Chest: Decreased breath sounds, Expiratory wheezes, No accessory muscle use Cardiovascular: Irregularly irregular, +Bradycardic, No murmur Abdomen/GI:Soft, Non tender, Bowel sounds present Extremities/Musculoskeletal:normal inspection, no edema Neurologic/Psych:AAOX2, grossly no focal neurological deficits Skin: normal color, warm Altered mental status Acute metabolic encephalopathy Likely secondary to medications, comorbidities CT head showed no acute findings. R/O CVA given history of A. fib currently not on anticoagulation Toxicology screen, urine analysis pending We will obtain MRI brain Neurochecks requested Hold sedative meds, Tylenol with codeine Continue lactulose Recheck ammonia levels in a.m. Bradycardia History of A. fib ? Tachybradycardia syndrome Hold diltiazem, and digoxin Consult cardiology Pacer pads at bedside Abnormal chest x-ray Recently recovered from Covid Currently asymptomatic Check procalcitonin Consider antibiotics if needed I personally reviewed the record. Patient is interviewed and examined at bedside . Patient's care is coordinated with Estefani Lopez FIELD ENUMERATOR. Please refer to the documentation above for details of patient's presentation and for discussion of other issues.
[2020-11-03] MEDS ORDERED: ALBUT/IPRATROP 3MG/0.5MG NEB 3 ML VIAL NEB PRN (20:49)
[2020-11-03] MEDS ORDERED: PHARMACIST DISCHARGE MED REC CONSULT PRN (20:49)
[2020-11-03 22:07] LABS: Appearance Urine Cloudy (Clear); Bacteria Urine Automated 4+ (Negative); Bilirubin Urine Negative (Negative); Blood Urine 1+ (Negative); Color Urine Yellow; Epithelial Cell Urine Auto 0-5 /lpf (0-5); Glucose Urine UA Negative (Negative); Ketones Urine Negative (Negative); Leukocyte Esterase Urine 3+ (Negative); Nitrite Urine Positive (Negative); Protein Urine 1+ (Negative); RBC Urine Automated 0-4 /hpf (0-4); Specific Gravity Urine 1.014 (1.000-1.030); Urobilinogen Urine Negative (Negative); WBC Urine Automated >30 /hpf (0-5); pH Urine 6.5 (4.5-7.5)
[2020-11-03] MEDS: DICYCLOMINE HCL 20 MG TAB PO SCH (22:10)
[2020-11-03] MEDS: LACTULOSE SYRUP 20 GM/30 ML UDC PO SCH (22:10)
[2020-11-03] MEDS: HEPARIN SOD 5,000 UNIT/0.5 ML VIAL SQ SCH (22:10)
[2020-11-03] MEDS: SUCRALFATE 1 GM TAB PO SCH (22:11)
[2020-11-03] MEDS: PANTOprazole 40 MG TAB PO SCH (22:11)
[2020-11-03 22:21] LABS: Amphetamines+Metham, Urine Neg (Neg); Barbiturates, Urine Neg (Neg); Benzodiazepine, Urine Neg (Neg); Cocaine, Urine Neg (Neg); MDMA (Ecstacy), Urine Neg (Neg); Methadone, Urine Neg (Neg); Opiate, Urine Pos (Neg); Phencyclidine, Urine Neg (Neg)
[2020-11-04] MEDS: HEPARIN SOD 5,000 UNIT/0.5 ML VIAL SQ SCH ×3 (05:42→21:30)
[2020-11-04 06:54] LABS: Basophils # (auto) 0.03 K/uL (0-0.2); Basophils % (auto) 0.5 %; Eosinophils # (auto) 0.07 K/uL (0-0.5); Eosinophils % (auto) 1.2 %; Hematocrit (blood only) 29.7 % (42-52); Hemoglobin 9.9 g/dL (14.0-18.0); Immature Granulocytes # (auto) 0.01 K/uL (0.00-0.02); Immature Granulocytes % (auto) 0.2 %; Lymphocytes # (auto) 0.95 K/uL (1.2-3.4); Lymphocytes % (auto) 15.6 %; Mean Corpuscular Hgb Conc 33.3 g/dL (32-36); Monocytes # (auto) 0.64 K/uL (0.11-0.59); Monocytes % (auto) 10.5 %; Neutrophils # (auto) 4.38 K/uL (1.4-6.5); Platelet Count 116 K/uL (130-400); RDW Standard Deviation 61.2 fL (36.4-46.3); White Blood Count 6.08 K/uL (4.8-10.8)
[2020-11-04 07:12] LABS: BUN Creatinine Ratio 15.8 (10-20); Bilirubin Direct 0.5 mg/dl (0-0.2); Calcium 8.7 mg/dl (8.5-10.1); Creatinine Clr Calc Pharmacy 79.6 ml/min; Est GFR (African American) 97.2 ml/min; Est GFR (Non-African American) 83.9 ml/min
[2020-11-04 07:15] LABS: Bilirubin,Total 1.4 mg/dl (0.2-1); Total Protein 6.3 gm/dl (6.4-8.2)
[2020-11-04 08:06] LABS: Estimated Average Glucose 97 mg/dl
[2020-11-04] MEDS: LOSARTAN POTASSIUM 25 MG TAB PO SCH (09:12)
[2020-11-04] MEDS: SUCRALFATE 1 GM TAB PO SCH ×4 (09:12→21:29)
[2020-11-04] MEDS: PANTOprazole 40 MG TAB PO SCH ×2 (09:12→21:29)
[2020-11-04] MEDS: DICYCLOMINE HCL 20 MG TAB PO SCH ×2 (09:12→21:28)
[2020-11-04] MEDS: TAMSULOSIN HCL 0.4 MG CAP PO SCH (09:12)
[2020-11-04] MEDS: LACTULOSE SYRUP 20 GM/30 ML UDC PO SCH ×2 (09:13→21:48)
[2020-11-04] MEDS: FOLIC ACID 1 MG TAB PO SCH (09:13)
[2020-11-04] MEDS: PARoxetine HCL 20 MG TAB PO SCH (09:13)
[2020-11-04] MEDS: CHOLECALCIFEROL 1,000 UNITS 25 MCG TAB PO SCH (09:13)
[2020-11-04] MEDS: THIAMINE HCL 100 MG TAB PO SCH (09:13)
[2020-11-04] MEDS: FLUTICASONE/VILANTEROL 100/25MCG 14 PUFFS/INHALER INH SCH (09:14)
--- NOTE | 2020-11-04 10:03 | Electrocardiogram Report ---
Test Reason : Blood Pressure : / mmHG Vent. Rate : 047 BPM Atrial Rate : 241 BPM P-R Int : 000 ms QRS Dur : 130 ms QT Int : 484 ms P-R-T Axes : 000 -59 086 degrees QTc Int : 428 ms Atrial fibrillation with slow ventricular response Left axis deviation Non-specific intra-ventricular conduction block Nonspecific T wave abnormality Abnormal ECG When compared with ECG of 09-JUL-2020 11:18, Vent. rate has decreased BY [address] no longer depressed in Anterior leads T wave inversion now evident in Anterior leads QT has shortened Confirmed by Phoenix Montoya ([id number]) on 11/04/2020 10:03:21 AM Referred By: Cortez BOND Confirmed By:Phoenix Montoya
--- NOTE | 2020-11-04 12:31 | XRay Report ---
KUB CLINICAL HISTORY: Preprocedural examination. MRI screening. FINDINGS: 2 AP supine abdominal radiographs are correlated with abdominal CT dated 05/08/2020. Endova scular coils project over the upper abdomen. An IVC filter is in place. There is no bowel obstruction . No evidence of intraperitoneal free air is seen on these supine images. There are no abnormal abdom inal calcifications. The skeletal structures are osteopenic and appear intact. There is moderate to a dvanced lumbosacral spondylosis and scoliosis. IMPRESSION: 1. Nonobstructed abdominal bowel gas pattern. 2. An IVC filter and vascular coils are noted in the abdomen. Electronically signed by: Bud Scruggs M.D. 11/04/2020 12:30 PM
--- NOTE | 2020-11-04 13:05 | Cardiology Consultation ---
Date of Consultation November 04, 2020 Assessment & Plan (1) Atrial fibrillation, permanent: (2) Bradycardia: (3) HTN (hypertension): (4) Acute confusion: (5) Mitral regurgitation: (6) Pericardial effusion: ASSESSMENT/PLAN: 1. Atrial fibrillation with bradycardia: Permanent atrial fibrillation. Heart rate has mostly been 40s to 60s and while in the room, was consistently 50s to 60s after diltiazem and digoxin were held by admitting service. Despite adequate heart rates and perfusing blood pressures, his confusion remains. Bradycardia is not likely causing his admitting symptoms of confusion. Could question if he has appropriate chronotropic response as he did report shortness of breath but he was unable to further describe when his shortness of breath occurs. Agree with discontinuation of digoxin. Diltiazem remains on hold as his heart rate is still mildly bradycardic, but he may require resuming some form of rate control medication if he should become more tachycardic. He is not on chronic anticoagulation therapy due to history of GI bleeding and has watchman device when last seen by Dr. Coyle. 2. Hypertension: Blood pressure is stable but has been elevated. If unable to resume diltiazem, will likely require some other form of antihypertensive agent that does not have rate-controlling properties. 3. Acute confusion: This was his presenting symptom. Urine culture is abnormal. MRI of the brain is pending. Will defer further evaluation and treatment to the primary hospitalist service. Consider antibiotic therapy given positive urine culture. 4. Mitral regurgitation: Reported as moderate 2 months ago. Continue to follow over time. 5. Pericardial effusion: He reportedly had a small pericardial effusion anteriorly at an echo done at an outside facility. His presentation is not consistent with tamponade physiology. This can be monitored. 6. Disposition: His cardiology care can be continued tomorrow by his primary mixer [employer], Dr. Coyle. Please contact Dr. Coyle or on-call [employer] for further questions or concerns. Thank you for allowing me to participate in the care of your patient. Please call for any other questions or concerns. Sincerely, Avi Montoya M.D. History of Present Illness Reason for Consultation: Bradycardia and Atrial fibrillation Requesting Physician: Estefani FORREST Attending Physician: Dilip Munoz MD History of Present Illness Mr. Ramírez is a 80-year-old gentleman with history significant for permanent atrial fibrillation (reportedly diagnosed 1998), metastatic prostate cancer, COPD, type 2 diabetes, GI bleed, peptic ulcer disease, cirrhosis, and h ypertension. His primary [employer] food products is Dr. Coyle. He was last seen by Dr. Coyle on 09/21/20. He was admitted on 11/03/2020 for confusion. Apparently for the past month or so, he has had increased confusion and has difficulty focusing and sometimes forgets where he is at. He is not the best historian currently due to his confusion as he continues to be confused while here. He states that at times he would pace in his cell at [facility]. He reports having increased shortness of breath over the past month. Shortness of breath can occur any time without pattern. He denies orthopnea. He currently denies shortness of breath. He also has had intermittent palpitations, once again without specific pattern/trigger. He has been experiencing back pain and mild headache. He denies any recent nausea, vomiting, melena, hematochezia, hematuria, or other bleeding. No reported syncope. He specifically denies angina/chest pain. No reported fevers, chills, or urinary complaints. In the emergency department, he received lactulose as he had elevated ammonia levels. According to admitting H&P, he was initiated on Tylenol with codeine on 10/14/2020, 2 tablets twice daily. Review of systems: As above. Review of systems otherwise negative/unremarkable. Family history: Father with CAD. Social history: Quit smoking 1 year ago. Incarcerated at [facility]. And a basis to codeine make and confused Allergies Allergy/AdvReac Type Severity Reaction Status Date / Time doxazosin [From Cardura] Allergy Unknown Unknown Verified 11/03/20 15:30 prazosin [From Minipress] Allergy Unknown Unknown Verified 11/03/20 15:30 Home Medications Medication Instructions Recorded Confirmed Type folic acid 1 mg PO QAM 06/12/18 11/03/20 History lactulose 30 ml PO BID 06/12/18 11/03/20 History metformin 500 mg PO HS 06/12/18 11/03/20 History nitroglycerin [Nitrostat] 0.4 mg SUBLINGUAL UD PRN 06/12/18 11/03/20 History diltiazem HCl 180 mg PO QAM 12/06/18 11/03/20 History tamsulosin 0.4 mg PO QAM 02/06/19 11/03/20 History acetaminophen-codeine 2 tab PO BID PRN 05/08/20 11/03/20 History digoxin 250 mcg PO QAM 05/08/20 11/03/20 History fluticasone propion-salmeterol 1 inh INHALATION BID 05/08/20 11/03/20 History [Wixela Inhub] pantoprazole 40 mg PO BID 56 Days #112 tab 05/11/20 11/03/20 Rx dicyclomine 20 mg PO BID 05/22/20 11/03/20 History Gaviscon Extra Strength 1 tab PO QID PRN 07/09/20 11/03/20 History losartan 25 mg PO QAM 07/09/20 11/03/20 History thiamine mononitrate (vit B1) 100 mg PO QAM 07/09/20 11/03/20 History cholecalciferol (vitamin D3) 25 mcg PO QAM 07/26/20 11/03/20 History [Vitamin D3] leuprolide (3 month) 22.5 mg (3 22.5 mg SUBCUT UD ea 09/21/20 11/03/20 History month) subcutaneous syringe sucralfate 1 gram tablet 1 g PO QID tab 09/21/20 11/03/20 History paroxetine HCl 30 mg PO DAILY 11/03/20 11/03/20 History Patient History Medical History (Updated 11/04/20 @ 14:49 by Phoenix Montoya MD) Allergic rhinitis Anemia S/p transfusion 05/2020 per records - secondary to GI bleed Anxiety Atrial fibrillation No longer on Coumadin (per records - no AC secondary to thrombocytopenia related to cirrhosis and bleeding risk secondary to falls) Bone lesion Metastasis from prostate cancer -pt currently declining treatment BPH (benign prostatic hyperplasia) Chronic back pain Chronic pulmonary embolism Dx'ed [address] Cirrhosis On Lactulose and Xifaxan COPD (chronic obstructive pulmonary disease) COVID-19 virus infection Tested Covid positive 07/09/20= pt admitted to [facility]- discharged 07/13/20 Depressive disorder DVT (deep venous thrombosis) Dx'ed 2018- not a candidate for AC GERD (gastroesophageal reflux disease) H/O: CVA (cerebrovascular accident) SCI states it has been several years ago Per records (12/10/17 cardio consult)- "suspected in October 2017" HTN (hypertension) Mitral regurgitation Peptic ulcer disease 05/2020 bleeding ulcer from Toradol treatment for pain from gallbladder and bone pain- was transferred to [facility] 05/22/20 due to uncontrolled GI bleeding Portal hypertension Presence of IVC filter Prostate cancer SCI emily states that he is refusing treatment for the prostate cancer and it has mets to bone and has alot of pain. Sciatica Tremor Surgical History H/O right knee surgery History of appendectomy History of cataract surgery left. 12/2018. 2mg versed. History of cataract surgery Hx of esophagogastroduodenoscopy at least 2---recently 08/06/2020 GI bleed 05/2020 - was lifeflighted to [facility] Family History Mother , in her 80s Myocardial infarction Stroke Father , in her 60s Myocardial infarction Other Family history non-contributory Social History Smoking Status: Former smoker Tobacco Type: Cigarettes Age Started Using Tobacco: 11; Hx Alcohol Use: No Hx Substance Use: No Preferred Language: Kazakh Communication Ability: Effective Visual Impairment: No Limitations Hearing Ability: Normal Flush Tester Required: No Beliefs That Will Affect Care: None marital status: Single Current Living Situation: Other Current Living Situation Comment: Correctional facility. current occupational status: unemployed Other Information That Helps Us Care for You: No Feels Safe at Home: Yes Safety Concerns: Feels Safe At This Time caffeine: Yes (2 cups/day) during the past year weight has: remained stable Assistive Devices: None Physical Exam Physical Exam: Gen.: No acute distress. Alert and oriented to self and place. HEENT: Anicteric sclera. Neck: No JVD. No bruits. Normal carotid upstrokes bilaterally. Cardiac: PMI was nonpalpable. No ventricular heave. Irregularly irregular and bradycardic in the 50s. Normal S1-S2. No murmurs, rubs, or gallops. Pulmonary: Clear to auscultation bilaterally without wheezes, rales, or rhonchi. Abdomen: Soft, nontender, nondistended, with normoactive bowel sounds. No bruits noted. Extremities: 2+ radial pulses bilaterally. 2+ posterior tibialis pulses bilaterally. No edema or cyanosis. Psychiatric: Affect appears appropriate. Results & Data ([facility]) Vital Signs (Past 12 Hours) Vital Signs Temp Pulse Pulse Resp BP Pulse Ox 11/04/20 10:54 36.7 C 49 L 18 167/70 H 95 11/04/20 07:22 53 L 11/04/20 07:18 37.0 C 56 L 18 161/74 H 93 11/04/20 03:57 36.8 C 54 L 20 161/72 H 91 Laboratory Results Laboratory Results - last 24 hr 11/03/20 11/03/20 11/03/20 14:37 14:37 14:37 WBC 5.35 RBC 3.37 L Hgb 11.0 L Hct 33.6 L MCV 99.7 MCH 32.6 MCHC 32.7 RDW Std Deviation 62.6 H RDW Coeff of Charo 17.0 H Plt Count 140 MPV 10.8 H Immature Gran % (Auto) 0.0 Neut % (Auto) 73.1 Lymph % (Auto) 15.0 [place] % (Auto) 9.7 Eos % (Auto) 1.1 Baso % (Auto) 1.1 Neut # (Auto) 3.91 Lymph # (Auto) 0.80 L [place] # (Auto) 0.52 Eos # (Auto) 0.06 Baso # (Auto) 0.06 Immature Gran # (Auto) 0.00 PT 11.4 INR 1.1 Sodium 139 Potassium 4.3 Chloride 108 H Carbon Dioxide 27 Anion Gap 4.0 BUN 16 Creatinine 0.95 Est Cr Clr Drug Dosing 70.3 Est GFR ( Amer) 88.5 Est GFR (Non-Af Amer) 76.4 BUN/Creatinine Ratio 16.8 Glucose 149 H POC Glucose Estimat Average Glucose Hemoglobin A1c Calcium 9.5 Magnesium 2.2 Total Bilirubin 1.4 H Direct Bilirubin AST 24 ALT 19 Alkaline Phosphatase 110 Ammonia Troponin I 0.031 Total Protein 7.4 Albumin 3.3 L Globulin 4.1 H Albumin/Globulin Ratio 0.8 L Triglycerides Cholesterol LDL Cholesterol, Calc VLDL Cholesterol, Calc HDL Cholesterol Cholesterol/HDL Ratio Procalcitonin Urine Color Urine Appearance Urine pH Ur Specific [place] Urine Protein Urine Glucose (UA) Urine Ketones Urine Blood Urine Nitrite Urine Bilirubin Urine Urobilinogen Ur Leukocyte Esterase Urine WBC (Auto) Urine RBC (Auto) U Hyaline Cast (Auto) U Epithel Cells (Auto) Urine Bacteria (Auto) Nasal Screen MRSA (PCR) Digoxin Urine Opiates Screen U Codeine Confrm GC/MS Ur Morphine (GC/MS) Ur Hydrocodone (GC/MS) Ur Norhydrocodone Ur Noroxycodone Urine Oxycodone (GC/MS) U Oxymorphone GC/MS Ur Methadone, Qual Ur Hydromorphone (GC/MS) Urine Barbiturates Ur Phencyclidine (PCP) U Amphetamin/Meth Scrn MDMA (Ecstasy) Screen U Benzodiazepines Scrn Ur Cocaine Metabolite U Marijuana (THC) Screen Drug Screen Comment COVID-19 Eval Order SARS-CoV-2 (PCR) 11/03/20 11/03/20 11/03/20 14:37 15:32 18:03 WBC RBC Hgb Hct MCV MCH MCHC RDW Std Deviation RDW Coeff of Charo Plt Count MPV Immature Gran % (Auto) Neut % (Auto) Lymph % (Auto) [place] % (Auto) Eos % (Auto) Baso % (Auto) Neut # (Auto) Lymph # (Auto) [place] # (Auto) Eos # (Auto) Baso # (Auto) Immature Gran # (Auto) PT INR Sodium Potassium Chloride Carbon Dioxide Anion Gap BUN Creatinine Est Cr Clr Drug Dosing Est GFR ( Amer) Est GFR (Non-Af Amer) BUN/Creatinine Ratio Glucose POC Glucose Estimat Average Glucose Hemoglobin A1c Calcium Magnesium Total Bilirubin Direct Bilirubin AST ALT Alkaline Phosphatase Ammonia 38.0 H Troponin I Total Protein Albumin Globulin Albumin/Globulin Ratio Triglycerides Cholesterol LDL Cholesterol, Calc VLDL Cholesterol, Calc HDL Cholesterol Cholesterol/HDL Ratio Procalcitonin < 0.05 Urine Color Urine Appearance Urine pH Ur Specific [place] Urine Protein Urine Glucose (UA) Urine Ketones Urine Blood Urine Nitrite Urine Bilirubin Urine Urobilinogen Ur Leukocyte Esterase Urine WBC (Auto) Urine RBC (Auto) U Hyaline Cast (Auto) U Epithel Cells (Auto) Urine Bacteria (Auto) Nasal Screen MRSA (PCR) Digoxin Urine Opiates Screen U Codeine Confrm GC/MS Ur Morphine (GC/MS) Ur Hydrocodone (GC/MS) Ur Norhydrocodone Ur Noroxycodone Urine Oxycodone (GC/MS) U Oxymorphone GC/MS Ur Methadone, Qual Ur Hydromorphone (GC/MS) Urine Barbiturates Ur Phencyclidine (PCP) U Amphetamin/Meth Scrn MDMA (Ecstasy) Screen U Benzodiazepines Scrn Ur Cocaine Metabolite U Marijuana (THC) Screen Drug Screen Comment COVID-19 Eval Order Covid19 at [facility] SARS-CoV-2 (PCR) 11/03/20 11/03/20 11/03/20 18:03 18:22 20:30 WBC RBC Hgb Hct MCV MCH MCHC RDW Std Deviation RDW Coeff of Charo Plt Count MPV Immature Gran % (Auto) Neut % (Auto) Lymph % (Auto) [place] % (Auto) Eos % (Auto) Baso % (Auto) Neut # (Auto) Lymph # (Auto) [place] # (Auto) Eos # (Auto) Baso # (Auto) Immature Gran # (Auto) PT INR Sodium Potassium Chloride Carbon Dioxide Anion Gap BUN Creatinine Est Cr Clr Drug Dosing Est GFR ( Amer) Est GFR (Non-Af Amer) BUN/Creatinine Ratio Glucose POC Glucose Estimat Average Glucose Hemoglobin A1c Calcium Magnesium Total Bilirubin Direct Bilirubin AST ALT Alkaline Phosphatase Ammonia Troponin I Total Protein Albumin Globulin Albumin/Globulin Ratio Triglycerides Cholesterol LDL Cholesterol, Calc VLDL Cholesterol, Calc HDL Cholesterol Cholesterol/HDL Ratio Procalcitonin Urine Color Urine Appearance Urine pH Ur Specific [place] Urine Protein Urine Glucose (UA) Urine Ketones Urine Blood Urine Nitrite Urine Bilirubin Urine Urobilinogen Ur Leukocyte Esterase Urine WBC (Auto) Urine RBC (Auto) U Hyaline Cast (Auto) U Epithel Cells (Auto) Urine Bacteria (Auto) Nasal Screen MRSA (PCR) Negative Digoxin 1.3 Urine Opiates Screen U Codeine Confrm GC/MS Ur Morphine (GC/MS) Ur Hydrocodone (GC/MS) Ur Norhydrocodone Ur Noroxycodone Urine Oxycodone (GC/MS) U Oxymorphone GC/MS Ur Methadone, Qual Ur Hydromorphone (GC/MS) Urine Barbiturates Ur Phencyclidine (PCP) U Amphetamin/Meth Scrn MDMA (Ecstasy) Screen U Benzodiazepines Scrn Ur Cocaine Metabolite U Marijuana (THC) Screen Drug Screen Comment COVID-19 Eval Order SARS-CoV-2 (PCR) NEGATIVE 11/03/20 11/03/20 11/03/20 20:47 20:50 20:50 WBC RBC Hgb Hct MCV MCH MCHC RDW Std Deviation RDW Coeff of Charo Plt Count MPV Immature Gran % (Auto) Neut % (Auto) Lymph % (Auto) [place] % (Auto) Eos % (Auto) Baso % (Auto) Neut # (Auto) Lymph # (Auto) [place] # (Auto) Eos # (Auto) Baso # (Auto) Immature Gran # (Auto) PT INR Sodium Potassium Chloride Carbon Dioxide Anion Gap BUN Creatinine Est Cr Clr Drug Dosing Est GFR ( Amer) Est GFR (Non-Af Amer) BUN/Creatinine Ratio Glucose POC Glucose 139 H Estimat Average Glucose Hemoglobin A1c Calcium Magnesium Total Bilirubin Direct Bilirubin AST ALT Alkaline Phosphatase Ammonia Troponin I Total Protein Albumin Globulin Albumin/Globulin Ratio Triglycerides Cholesterol LDL Cholesterol, Calc VLDL Cholesterol, Calc HDL Cholesterol Cholesterol/HDL Ratio Procalcitonin Urine Color Yellow Urine Appearance Cloudy A Urine pH 6.5 Ur Specific [place] 1.014 Urine Protein 1+ H Urine Glucose (UA) Negative Urine Ketones Negative Urine Blood 1+ H Urine Nitrite Positive A Urine Bilirubin Negative Urine Urobilinogen Negative Ur Leukocyte Esterase 3+ H Urine WBC (Auto) >30 H Urine RBC (Auto) 0-4 U Hyaline Cast (Auto) 1-5 U Epithel Cells (Auto) 0-5 Urine Bacteria (Auto) 4+ H Nasal Screen MRSA (PCR) Digoxin Urine Opiates Screen Pos H U Codeine Confrm GC/MS Ur Morphine (GC/MS) Ur Hydrocodone (GC/MS) Ur Norhydrocodone Ur Noroxycodone Urine Oxycodone (GC/MS) U Oxymorphone GC/MS Ur Methadone, Qual Neg Ur Hydromorphone (GC/MS) Urine Barbiturates Neg Ur Phencyclidine (PCP) Neg U Amphetamin/Meth Scrn Neg MDMA (Ecstasy) Screen Neg U Benzodiazepines Scrn Neg Ur Cocaine Metabolite Neg U Marijuana (THC) Screen Neg Drug Screen Comment COVID-19 Eval Order SARS-CoV-2 (PCR) 11/03/20 11/04/20 11/04/20 20:50 06:40 06:40 WBC 6.08 RBC 3.00 L Hgb 9.9 L Hct 29.7 L MCV 99.0 MCH 33.0 MCHC 33.3 RDW Std Deviation 61.2 H RDW Coeff of Charo 17.0 H Plt Count 116 L MPV 11.0 H Immature Gran % (Auto) 0.2 Neut % (Auto) 72.0 Lymph % (Auto) 15.6 [place] % (Auto) 10.5 Eos % (Auto) 1.2 Baso % (Auto) 0.5 Neut # (Auto) 4.38 Lymph # (Auto) 0.95 L [place] # (Auto) 0.64 H Eos # (Auto) 0.07 Baso # (Auto) 0.03 Immature Gran # (Auto) 0.01 PT INR Sodium 140 Potassium 4.0 Chloride 110 H Carbon Dioxide 26 Anion Gap 4.0 BUN 13 Creatinine 0.84 Est Cr Clr Drug Dosing 79.6 Est GFR ( Amer) 97.2 Est GFR (Non-Af Amer) 83.9 BUN/Creatinine Ratio 15.8 Glucose 99 POC Glucose Estimat Average Glucose Hemoglobin A1c Calcium 8.7 Magnesium Total Bilirubin 1.4 H Direct Bilirubin 0.5 H AST 20 ALT 15 Alkaline Phosphatase 94 Ammonia Troponin I Total Protein 6.3 L Albumin 3.0 L Globulin Albumin/Globulin Ratio Triglycerides 41 Cholesterol 112 LDL Cholesterol, Calc 42 VLDL Cholesterol, Calc 8 HDL Cholesterol 62 Cholesterol/HDL Ratio 2 Procalcitonin Urine Color Urine Appearance Urine pH Ur Specific [place] Urine Protein Urine Glucose (UA) Urine Ketones Urine Blood Urine Nitrite Urine Bilirubin Urine Urobilinogen Ur Leukocyte Esterase Urine WBC (Auto) Urine RBC (Auto) U Hyaline Cast (Auto) U Epithel Cells (Auto) Urine Bacteria (Auto) Nasal Screen MRSA (PCR) Digoxin Urine Opiates Screen U Codeine Confrm GC/MS Pending Ur Morphine (GC/MS) Pending Ur Hydrocodone (GC/MS) Pending Ur Norhydrocodone Pending Ur Noroxycodone Pending Urine Oxycodone (GC/MS) Pending U Oxymorphone GC/MS Pending Ur Methadone, Qual Ur Hydromorphone (GC/MS) Pending Urine Barbiturates Ur Phencyclidine (PCP) U Amphetamin/Meth Scrn MDMA (Ecstasy) Screen U Benzodiazepines Scrn Ur Cocaine Metabolite U Marijuana (THC) Screen Drug Screen Comment Pending COVID-19 Eval Order SARS-CoV-2 (PCR) 11/04/20 11/04/20 11/04/20 06:40 06:40 06:44 WBC RBC Hgb Hct MCV MCH MCHC RDW Std Deviation RDW Coeff of Charo Plt Count MPV Immature Gran % (Auto) Neut % (Auto) Lymph % (Auto) [place] % (Auto) Eos % (Auto) Baso % (Auto) Neut # (Auto) Lymph # (Auto) [place] # (Auto) Eos # (Auto) Baso # (Auto) Immature Gran # (Auto) PT INR Sodium Potassium Chloride Carbon Dioxide Anion Gap BUN Creatinine Est Cr Clr Drug Dosing Est GFR ( Amer) Est GFR (Non-Af Amer) BUN/Creatinine Ratio Glucose POC Glucose Estimat Average Glucose 97 Hemoglobin A1c 5.0 Calcium Magnesium Total Bilirubin Direct Bilirubin AST ALT Alkaline Phosphatase Ammonia 52.0 H Troponin I Total Protein Albumin Globulin Albumin/Globulin Ratio Triglycerides Cholesterol LDL Cholesterol, Calc VLDL Cholesterol, Calc HDL Cholesterol Cholesterol/HDL Ratio Procalcitonin < 0.05 Urine Color Urine Appearance Urine pH Ur Specific [place] Urine Protein Urine Glucose (UA) Urine Ketones Urine Blood Urine Nitrite Urine Bilirubin Urine Urobilinogen Ur Leukocyte Esterase Urine WBC (Auto) Urine RBC (Auto) U Hyaline Cast (Auto) U Epithel Cells (Auto) Urine Bacteria (Auto) Nasal Screen MRSA (PCR) Digoxin Urine Opiates Screen U Codeine Confrm GC/MS Ur Morphine (GC/MS) Ur Hydrocodone (GC/MS) Ur Norhydrocodone Ur Noroxycodone Urine Oxycodone (GC/MS) U Oxymorphone GC/MS Ur Methadone, Qual Ur Hydromorphone (GC/MS) Urine Barbiturates Ur Phencyclidine (PCP) U Amphetamin/Meth Scrn MDMA (Ecstasy) Screen U Benzodiazepines Scrn Ur Cocaine Metabolite U Marijuana (THC) Screen Drug Screen Comment COVID-19 Eval Order SARS-CoV-2 (PCR) 11/04/20 11/04/20 07:15 11:01 WBC RBC Hgb Hct MCV MCH MCHC RDW Std Deviation RDW Coeff of Charo Plt Count MPV Immature Gran % (Auto) Neut % (Auto) Lymph % (Auto) [place] % (Auto) Eos % (Auto) Baso % (Auto) Neut # (Auto) Lymph # (Auto) [place] # (Auto) Eos # (Auto) Baso # (Auto) Immature Gran # (Auto) PT INR Sodium Potassium Chloride Carbon Dioxide Anion Gap BUN Creatinine Est Cr Clr Drug Dosing Est GFR ( Amer) Est GFR (Non-Af Amer) BUN/Creatinine Ratio Glucose POC Glucose 101 H 103 H Estimat Average Glucose Hemoglobin A1c Calcium Magnesium Total Bilirubin Direct Bilirubin AST ALT Alkaline Phosphatase Ammonia Troponin I Total Protein Albumin Globulin Albumin/Globulin Ratio Triglycerides Cholesterol LDL Cholesterol, Calc VLDL Cholesterol, Calc HDL Cholesterol Cholesterol/HDL Ratio Procalcitonin Urine Color Urine Appearance Urine pH Ur Specific [place] Urine Protein Urine Glucose (UA) Urine Ketones Urine Blood Urine Nitrite Urine Bilirubin Urine Urobilinogen Ur Leukocyte Esterase Urine WBC (Auto) Urine RBC (Auto) U Hyaline Cast (Auto) U Epithel Cells (Auto) Urine Bacteria (Auto) Nasal Screen MRSA (PCR) Digoxin Urine Opiates Screen U Codeine Confrm GC/MS Ur Morphine (GC/MS) Ur Hydrocodone (GC/MS) Ur Norhydrocodone Ur Noroxycodone Urine Oxycodone (GC/MS) U Oxymorphone GC/MS Ur Methadone, Qual Ur Hydromorphone (GC/MS) Urine Barbiturates Ur Phencyclidine (PCP) U Amphetamin/Meth Scrn MDMA (Ecstasy) Screen U Benzodiazepines Scrn Ur Cocaine Metabolite U Marijuana (THC) Screen Drug Screen Comment COVID-19 Eval Order SARS-CoV-2 (PCR) Diagnostic Findings Telemetry personally reviewed: Atrial fibrillation with heart rates 40s to 60s. ECGs personally reviewed: ECG 11/03/2020: AFib 47 beats per minute. IVCB. Nonspecific T-wave abnormality. ECG 11/04/2020: AFib 61 beats per minute. IVC be. Lateral T-wave abnormality. Urine culture 11/03/2020: >100k colonies of Gram-negative bacilli. Echo 09/01/2020: Low-normal LV systolic function. EF 50-54%. Inferior posterior wall motion hypokinesis. Mild LVH. Severe left atrial dilation. Posterior mitral leaflet constriction with moderate MR (eccentric jet). Aortic root 4.3 cm. Small anterior pericardial effusion. CXR 11/03/20: Image personally reviewed and no infiltrate noted. Per radiology, emphysema with mild interstitial coarsening, pulmonary vascular congestion and mild asymmetric right lung base opacities, concerning for atelectasis versus pneumonitis per Radiology. Medications Administered Current Inpatient Medications Acetaminophen (Acetaminophen 325 Mg Tab) 650 mg PO Q4H PRN PRN Reason: Pain or Fever Stop: 12/03/20 20:48 Albuterol (Albut/Ipratrop 3mg/0.5mg Neb 3 Ml Vial) 3 ml NEB Q4R PRN PRN Reason: Shortness Of Breath Or Wheezing Stop: 12/03/20 20:48 Dicyclomine HCl (Dicyclomine Hcl 20 Mg Tab) 20 mg PO BID [facility] Stop: 12/03/20 20:59 Last Admin: 11/04/20 09:12 Dose: 20 mg Documented by: Fluticasone/Vilanterol (Fluticasone/Vilanterol 100/25mcg 14 Puffs/Inhaler) 1 puffs INH DAILY [facility] Stop: 12/04/20 08:59 Last Admin: 11/04/20 09:14 Dose: 1 puffs Documented by: Folic Acid (Folic Acid 1 Mg Tab) 1 mg PO QAM [facility] Stop: 12/04/20 08:59 Last Admin: 11/04/20 09:13 Dose: 1 mg Documented by: Heparin Sodium (Porcine) (Heparin Sod 5,000 Unit/0.5 Ml Vial) 5,000 units SQ Q8 [facility] Stop: 12/03/20 21:59 Last Admin: 11/04/20 13:50 Dose: Not Given Documented by: Lactulose (Lactulose Syrup 20 Gm/30 Ml Udc) 20 gm PO BID [facility] Stop: 12/03/20 21:59 Last Admin: 11/04/20 09:13 Dose: 20 gm Documented by: Losartan Potassium (Losartan Potassium 25 Mg Tab) 25 mg PO QAM [facility] Stop: 12/04/20 08:59 Last Admin: 11/04/20 09:12 Dose: 25 mg Documented by: Pantoprazole Sodium (Pantoprazole 40 Mg Tab) 40 mg PO BID [facility] Stop: 12/03/20 20:59 Last Admin: 11/04/20 09:12 Dose: 40 mg Documented by: Paroxetine HCl (Paroxetine Hcl 20 Mg Tab) 30 mg PO DAILY [facility] Stop: 12/04/20 08:59 Last Admin: 11/04/20 09:13 Dose: 30 mg Documented by: Sucralfate (Sucralfate 1 Gm Tab) 1 gm PO QID [facility] Stop: 12/03/20 20:59 Last Admin: 11/04/20 13:19 Dose: Not Given Documented by: Tamsulosin HCl (Tamsulosin Hcl 0.4 Mg Cap) 0.4 mg PO [facility] Stop: 12/04/20 08:59 Last Admin: 11/04/20 09:12 Dose: 0.4 mg Documented by: Thiamine HCl (Thiamine Hcl 100 Mg Tab) 100 mg PO [facility] Stop: 12/04/20 08:59 Last Admin: 11/04/20 09:13 Dose: 100 mg Documented by: Vitamin D (Cholecalciferol 1,000 Units 25 Mcg Tab) 1,000 units PO [facility] Stop: 12/04/20 08:59 Last Admin: 11/04/20 09:13 Dose: 1,000 units Documented by: PG Care Time/CCT Total # of Minutes Spent Total Time Spent with Patient: Total time spent is greater than 50% in coordination of care (as documented) at patient's floor/unit and/or counseling patient: Coding Level of Care Code 07724 Initial Inpt Care Lvl 2 Diagnoses Atrial fibrillation, permanent I48.21 Bradycardia R00.1 HTN (hypertension) I10 Acute confusion R41.0 Mitral regurgitation I34.0 Pericardial effusion I31.3
[2020-11-04] MEDS ORDERED: PIPERACILL/TAZOBAC CONSULT ACTIVE PRN ×3 (16:29→16:33)
--- NOTE | 2020-11-04 16:34 | Hospitalist Progress Note ---
Date of Service November 04, 2020 Assessment & Plan (1) Acute confusion: -Admit to telemetry -Patient presenting from [facility] for evaluation of confusion -May be due to recent addition of Tylenol with codeine -Check UDS -History of atrial fibrillation, not anticoagulated, therefore will check brain MRI to evaluate for CVA -UA (although afebrile, no leukocytosis) -History of cirrhosis however does not seem to be encephalopathic on exam - mildly elevated ammonia, received extra dose of lactulose in ED. Continue home dose for now. (2) Bradycardia: (3) Atrial fibrillation: -Found to be in slow atrial fibrillation with rates in the high 30s at times -Check dig level -Hold dig and diltiazem -Cardiology consult, patient follows with [facility] -Not anticoagulated secondary to history of GI bleeding (4) Abnormal chest x-ray: -CXR shows right lung base opacities suggestive of atelectasis versus pneumonitis -No pulmonary symptoms -Afebrile, no leukocytosis -Check procalcitonin (5) Diabetes mellitus, type 2: -Hgb A1c 5.3 04/2020 -Hold metformin and utilize NovoLog per protocol while hospitalized (6) Cirrhosis: -Continue lactulose (7) HTN (hypertension): -BP controlled, continue losartan (8) Peptic ulcer disease: -Continue PPI and sucralfate (9) COPD (chronic obstructive pulmonary disease): -No signs of acute exacerbation, continue home inhalers (10) Prostate cancer: -Receives Lupron injections (11) DVT prophylaxis: -SQ heparin Admission and Anticipated Discharge Date Admission Date: November 03, 2020 Results & Data Results & Data ([facility]) Vital Signs (Past 12 Hours) Vital Signs Temp Pulse Pulse Resp BP Pulse Ox 11/04/20 15:11 37.1 C 63 16 171/85 H 94 11/04/20 14:44 54 L 11/04/20 10:54 36.7 C 49 L 18 167/70 H 95 11/04/20 07:22 53 L 11/04/20 07:18 37.0 C 56 L 18 161/74 H 93
[2020-11-04] MEDS ORDERED: PIPERACILLIN/TAZOBACTAM 3.375 GM in DEXTROSE 5% 100 ML IV SCH (16:45)
--- NOTE | 2020-11-04 16:55 | Hospitalist Progress Note ---
Date of Service November 04, 2020 Assessment & Plan (1) Acute confusion: -Likely secondary to recurrent UTI with possible ESBL E. coli -Patient presenting from [facility] for evaluation of confusion -Has been having confusion for more than a month and the condition is worsening -May be due to recent addition of Tylenol with codeine -Check UDS-still pending -CT of the head remains negativ -No MRI can be done and no evidence of any stroke and/or focal neurological signs. -History of ESBL UTI and the urine culture is positive for E. coli seems to be ESBL again -We will start Zosyn -History of cirrhosis however does not seem to be encephalopathic on exam, ammonia is just mildly elevated -We will observe in the hospital (2) Bradycardia: (3) Atrial fibrillation: -Found to be in slow atrial fibrillation with rates in the high 30s at times -Check dig level-normal -Hold dig and diltiazem -Cardiology consult-appreciate input and recommendation -Not anticoagulated secondary to history of GI bleeding -Status post IVC filter and watchman procedure (4) Abnormal chest x-ray: -CXR shows right lung base opacities suggestive of atelectasis versus pneumonitis -No pulmonary symptoms -Afebrile, no leukocytosis -Check procalcitonin-negative (5) Diabetes mellitus, type 2: -Hgb A1c 5.3 04/2020 -Hold metformin and utilize NovoLog per protocol while hospitalized (6) Cirrhosis: -Continue lactulose (7) HTN (hypertension): -BP controlled, continue losartan -Remains on the upper side -I will start hydralazine is smaller dose (8) Peptic ulcer disease: -Continue PPI and sucralfate (9) COPD (chronic obstructive pulmonary disease): -No signs of acute exacerbation, continue home inhalers (10) Prostate cancer: -Receives Lupron injections (11) DVT prophylaxis: -SQ heparin Admission and Anticipated Discharge Date Admission Date: November 03, 2020 Subjective 11/04/2020 The patient was seen and examined in telemetry unit He was admitted with acute confusion and bradyarrhythmia Still remains confused but denies any other symptoms Denies any cardiac symptoms, any respiratory symptoms or any other neurological symptoms Review of Systems Review of Systems: All systems reviewed and are unremarkable except as noted below Physical Exam Physical Exam: Lying in bed with acute confusion but no other distress Constitutional: + ill appearing and average body habitus Eyes: PERRL, conjunctivae normal, anicteric sclerae ENMT: external ear and nose normal, oropharynx normal Neck: trachea midline, no thyromegaly Respiratory: no respiratory distress Auscultation: lungs clear to auscultation bilaterally Cardiovascular: Rate/Rhythm: + irregularly irregular Heart Sounds: no murmur Extremities: no edema Gastrointestinal (Abdomen): Inspection/Auscultation: abdomen not distended Percussion/Palpation: abdomen soft; abdomen nontender Musculoskeletal: No acute arthritis in any joints Neurologic: Alert, awake and oriented x3. Has essential tremor. No focal sensory or motor deficit appreciated Lymphatic: no cervical or axillary lymphadenopathy Results & Data Results & Data ([facility]) Vital Signs (Past 12 Hours) Vital Signs Temp Pulse Pulse Resp BP Pulse Ox 11/04/20 15:11 37.1 C 63 16 171/85 H 94 11/04/20 14:44 54 L 11/04/20 10:54 36.7 C 49 L 18 167/70 H 95 11/04/20 07:22 53 L 11/04/20 07:18 37.0 C 56 L 18 161/74 H 93 Laboratory Results Short CBC 11/04/20 Range/Units 06:40 WBC 6.08 (4.8-10.8) K/uL Hgb 9.9 L (14.0-18.0) g/dL Hct 29.7 L (42-52) % Plt Count 116 L (130-400) K/uL BMP 11/04/20 06:40 Sodium 140 Potassium 4.0 Chloride 110 H Carbon Dioxide 26 BUN 13 Creatinine 0.84 Glucose 99 Calcium 8.7 Liver Function 11/04/20 Range/Units 06:40 Total Bilirubin 1.4 H (0.2-1) mg/dl Direct Bilirubin 0.5 H (0-0.2) mg/dl AST 20 (15-37) U/L ALT 15 (12-78) U/L Alkaline Phosphatase 94 (45-117) U/L Albumin 3.0 L (3.4-5.0) gm/dl Urine 11/03/20 Range/Units 20:50 Urine Color Yellow Urine Appearance Cloudy A (Clear) Urine pH 6.5 (4.5-7.5) Ur Specific [place] 1.014 (1.000-1.030) Urine Protein 1+ H (Negative) Urine Glucose (UA) Negative (Negative) Medications Administered Current Inpatient Medications Acetaminophen (Acetaminophen 325 Mg Tab) 650 mg PO Q4H PRN PRN Reason: Pain or Fever Stop: 12/03/20 20:48 Albuterol (Albut/Ipratrop 3mg/0.5mg Neb 3 Ml Vial) 3 ml NEB Q4R PRN PRN Reason: Shortness Of Breath Or Wheezing Stop: 12/03/20 20:48 Dicyclomine HCl (Dicyclomine Hcl 20 Mg Tab) 20 mg PO BID [facility] Stop: 12/03/20 20:59 Last Admin: 11/04/20 09:12 Dose: 20 mg Documented by: Fluticasone/Vilanterol (Fluticasone/Vilanterol 100/25mcg 14 Puffs/Inhaler) 1 puffs INH DAILY [facility] Stop: 12/04/20 08:59 Last Admin: 11/04/20 09:14 Dose: 1 puffs Documented by: Folic Acid (Folic Acid 1 Mg Tab) 1 mg PO QAM [facility] Stop: 12/04/20 08:59 Last Admin: 11/04/20 09:13 Dose: 1 mg Documented by: Heparin Sodium (Porcine) (Heparin Sod 5,000 Unit/0.5 Ml Vial) 5,000 units SQ Q8 [facility] Stop: 12/03/20 21:59 Last Admin: 11/04/20 13:50 Dose: Not Given Documented by: Piperacillin Sod/Tazobactam (Sod 4.5 gm/ Dextrose) 120 mls @ 200 mls/hr IV NOW ONE; Protocol Stop: 11/04/20 17:35 Piperacillin Sod/Tazobactam (Sod 4.5 gm/ Dextrose) 120 mls @ 30 mls/hr IV Q8H [facility]; Protocol Stop: 11/14/20 20:59 Lactulose (Lactulose Syrup 20 Gm/30 Ml Udc) 20 gm PO BID [facility] Stop: 12/03/20 21:59 Last Admin: 11/04/20 09:13 Dose: 20 gm Documented by: Losartan Potassium (Losartan Potassium 25 Mg Tab) 25 mg PO QAM [facility] Stop: 12/04/20 08:59 Last Admin: 11/04/20 09:12 Dose: 25 mg Documented by: Miscellaneous Information (Piperacill/Tazobac Consult Active) 1 ea N/A UD PRN PRN Reason: Consult Stop: 12/04/20 16:31 Pantoprazole Sodium (Pantoprazole 40 Mg Tab) 40 mg PO BID [facility] Stop: 12/03/20 20:59 Last Admin: 11/04/20 09:12 Dose: 40 mg Documented by: Paroxetine HCl (Paroxetine Hcl 20 Mg Tab) 30 mg PO DAILY [facility] Stop: 12/04/20 08:59 Last Admin: 11/04/20 09:13 Dose: 30 mg Documented by: Sucralfate (Sucralfate 1 Gm Tab) 1 gm PO QID [facility] Stop: 12/03/20 20:59 Last Admin: 11/04/20 13:19 Dose: Not Given Documented by: Tamsulosin HCl (Tamsulosin Hcl 0.4 Mg Cap) 0.4 mg PO QAM [facility] Stop: 12/04/20 08:59 Last Admin: 11/04/20 09:12 Dose: 0.4 mg Documented by: Thiamine HCl (Thiamine Hcl 100 Mg Tab) [facility] [place] Stop: 12/04/20 08:59 Last Admin: 11/04/20 09:13 Dose: 100 mg Documented by: Vitamin D (Cholecalciferol 1,000 Units 25 Mcg Tab) 1,000 units PO QAM [facility] Stop: 12/04/20 08:59 Last Admin: 11/04/20 09:13 Dose: 1,000 units Documented by:
[2020-11-04] MEDS ORDERED: PIPERACILLIN/TAZOBACTAM 4.5 GM in DEXTROSE 5% 100 ML IV ONE (17:00)
[2020-11-04] MEDS: hydrALAZINE HCL 25 MG TAB PO SCH ×3 (18:32→21:29)
[2020-11-04] MEDS: PIPERACILLIN/TAZOBACTAM 4.5 GM in DEXTROSE 5% 100 ML IV SCH (21:28)
[2020-11-05] MEDS: hydrALAZINE HCL 20 MG/ML VIAL IV PRN (00:47)
[2020-11-05] MEDS ORDERED: hydrALAZINE HCL 20 MG/ML VIAL IV STA (02:17)
[2020-11-05] MEDS: PIPERACILLIN/TAZOBACTAM 4.5 GM in DEXTROSE 5% 100 ML IV SCH ×2 (05:48→14:08)
[2020-11-05] MEDS: HEPARIN SOD 5,000 UNIT/0.5 ML VIAL SQ SCH ×3 (05:48→23:06)
--- NOTE | 2020-11-05 06:03 | Electrocardiogram Report ---
Test Reason : Blood Pressure : / mmHG Vent. Rate : 061 BPM Atrial Rate : 075 BPM P-R Int : 000 ms QRS Dur : 130 ms QT Int : 442 ms P-R-T Axes : 000 -55 111 degrees QTc Int : 444 ms Atrial fibrillation Left axis deviation Non-specific intra-ventricular conduction block T wave abnormality, consider lateral ischemia Abnormal ECG When compared with ECG of 03-NOV-2020 14:33, T wave inversion more evident in Lateral leads Confirmed by Phoenix Montoya ([id number]) on 11/05/2020 6:02:26 AM Referred By: Cortez SCI Confirmed By:Phoenix Montoya
[2020-11-05 06:46] LABS: Basophils # (auto) 0.03 K/uL (0-0.2); Basophils % (auto) 0.4 %; Eosinophils # (auto) 0.09 K/uL (0-0.5); Eosinophils % (auto) 1.1 %; Hematocrit (blood only) 31.6 % (42-52); Hemoglobin 10.8 g/dL (14.0-18.0); Immature Granulocytes # (auto) 0.01 K/uL (0.00-0.02); Immature Granulocytes % (auto) 0.1 %; Lymphocytes # (auto) 0.81 K/uL (1.2-3.4); Mean Corpuscular Hemoglobin 32.8 pg (25-34); Mean Corpuscular Hgb Conc 34.2 g/dL (32-36); Mean Platelet Volume 11.3 fL (7.4-10.4); Monocytes # (auto) 0.96 K/uL (0.11-0.59); Monocytes % (auto) 11.9 %; Neutrophils # (auto) 6.17 K/uL (1.4-6.5); Neutrophils % (auto) 76.5 %; Platelet Count 119 K/uL (130-400); RDW Coefficient of Variation 16.7 % (11.5-14.5); RDW Standard Deviation 58.8 fL (36.4-46.3); Red Blood Count 3.29 M/uL (4.7-6.1); White Blood Count 8.07 K/uL (4.8-10.8)
[2020-11-05 07:22] LABS: BUN Creatinine Ratio 15.7 (10-20); Calcium 9.3 mg/dl (8.5-10.1); Creatinine Clr Calc Pharmacy 63.6 ml/min; Est GFR (African American) 78.4 ml/min; Est GFR (Non-African American) 67.7 ml/min; Phosphorus 2.4 mg/dl (2.5-4.9); Potassium 3.6 mmol/L (3.5-5.1)
[2020-11-05] MEDS: SUCRALFATE 1 GM TAB PO SCH ×4 (07:36→19:57)
[2020-11-05] MEDS: LACTULOSE SYRUP 20 GM/30 ML UDC PO SCH ×2 (07:36→19:57)
[2020-11-05] MEDS: PANTOprazole 40 MG TAB PO SCH ×2 (07:37→19:57)
[2020-11-05] MEDS: DICYCLOMINE HCL 20 MG TAB PO SCH ×2 (07:37→19:57)
[2020-11-05] MEDS: hydrALAZINE HCL 25 MG TAB PO SCH ×3 (07:37→19:57)
[2020-11-05] MEDS: LOSARTAN POTASSIUM 25 MG TAB PO SCH (07:38)
[2020-11-05] MEDS: PARoxetine HCL 20 MG TAB PO SCH (07:38)
[2020-11-05] MEDS: CHOLECALCIFEROL 1,000 UNITS 25 MCG TAB PO SCH (08:13)
[2020-11-05] MEDS: ACETAMINOPHEN 325 MG TAB PO PRN ×2 (08:13→16:11)
[2020-11-05] MEDS: FOLIC ACID 1 MG TAB PO SCH (08:13)
[2020-11-05] MEDS: TAMSULOSIN HCL 0.4 MG CAP PO SCH (08:13)
[2020-11-05] MEDS: FLUTICASONE/VILANTEROL 100/25MCG 14 PUFFS/INHALER INH SCH (08:14)
[2020-11-05] MEDS: THIAMINE HCL 100 MG TAB PO SCH (08:14)
--- NOTE | 2020-11-05 09:22 | Cardiology Progress Note ---
Date of Service November 05, 2020 Assessment & Plan (1) Atrial fibrillation, permanent: (2) Bradycardia: (3) HTN (hypertension): (4) Acute confusion: (5) Mitral regurgitation: (6) Pericardial effusion: ASSESSMENT/PLAN: 1. Atrial fibrillation with bradycardia: Permanent atrial fibrillation. Rare symptoms of palpitations. Review of his telemetry reveals adequate rate control. Both digoxin and diltiazem were being held. It is unlikely he will need any additional digoxin. However, if his ventricular rates increase significantly I would consider restarting diltiazem at his prior dose of 180 mg daily. At some point we will need to readdress the options for reducing stroke in this patient with a history of gastrointestinal hemorrhage. However, given his current confusion I did not discuss this topic today. This could be deferred to the outpatient setting. 2. Hypertension: Blood pressure is stable but has been elevated. If unable to resume diltiazem, will likely require some other form of antihypertensive agent that does not have rate-controlling properties. 3. Acute confusion: Continues to complain of confusion. 4. Mitral regurgitation: Moderate. I will be away from the hospital for the next 2 days. Any questions regarding his cardiac condition during that time can be addressed to the on-call [facility] cardiology physician. Thank you Admission and Anticipated Discharge Date Admission Date: November 03, 2020 Subjective This morning the patient continues to report an element of confusion. He feels that his mentation is not yet back to normal. He also had a headache. He reports occasional sense of palpitation, but not frequent. No chest pain. No abdominal pain or distention. Reportedly tolerated breakfast. Tremors. Review of Systems Review of Systems: Per HPI Physical Exam Physical Exam: The patient is alert and oriented. Mood and affect appeared normal. He answered all questions appropriately. HEENT: Pupils are equal and reactive to light and accommodation. Extraocular movements are intact. The sclerae are anicteric. Neuro: Cranial nerves intact Lungs: Respiratory effort normal. Cardiac: Cardiac rhythm is irregularly irregular Pulses: The patient has palpable radial pulses bilaterally that are equal in intensity Extremities: There was no evidence of hypoperfusion. There is no cyanosis or clubbing. There is no edema. Intention tremor noted Skin: I did not appreciate any rashes on examination today. Results & Data ([facility]) Vital Signs (Past 12 Hours) Vital Signs Temp Pulse Pulse Resp BP BP Pulse Ox 11/05/20 08:25 67 11/05/20 07:07 37.1 C 70 27 H 171/83 H 96 11/05/20 04:00 36.5 C 73 24 184/76 H 94 11/05/20 01:44 195/73 H 11/05/20 00:46 197/92 H 11/05/20 00:15 70 11/04/20 23:39 36.7 C 69 24 182/84 H 94 Laboratory Results Abnormal Lab Results 11/04/20 11/04/20 11/04/20 11:01 16:02 20:35 WBC RBC Hgb Hct MCV MCH MCHC RDW Std Deviation RDW Coeff of Charo Plt Count MPV Immature Gran % (Auto) Neut % (Auto) Lymph % (Auto) [place] % (Auto) Eos % (Auto) Baso % (Auto) Neut # (Auto) Lymph # (Auto) [place] # (Auto) Eos # (Auto) Baso # (Auto) Immature Gran # (Auto) Sodium Potassium Chloride Carbon Dioxide Anion Gap BUN Creatinine Est Cr Clr Drug Dosing Est GFR ( Amer) Est GFR (Non-Af Amer) BUN/Creatinine Ratio Glucose POC Glucose 103 H 111 H 119 H Calcium Phosphorus Magnesium 11/05/20 11/05/20 11/05/20 06:32 06:32 07:05 WBC 8.07 RBC 3.29 L Hgb 10.8 L Hct 31.6 L MCV 96.0 MCH 32.8 MCHC 34.2 RDW Std Deviation 58.8 H RDW Coeff of Charo 16.7 H Plt Count 119 L MPV 11.3 H Immature Gran % (Auto) 0.1 Neut % (Auto) 76.5 Lymph % (Auto) 10.0 [place] % (Auto) 11.9 Eos % (Auto) 1.1 Baso % (Auto) 0.4 Neut # (Auto) 6.17 Lymph # (Auto) 0.81 L [place] # (Auto) 0.96 H Eos # (Auto) 0.09 Baso # (Auto) 0.03 Immature Gran # (Auto) 0.01 Sodium 140 Potassium 3.6 Chloride 111 H Carbon Dioxide 25 Anion Gap 4.0 BUN 16 Creatinine 1.05 Est Cr Clr Drug Dosing 63.6 Est GFR ( Amer) 78.4 Est GFR (Non-Af Amer) 67.7 BUN/Creatinine Ratio 15.7 Glucose 111 H POC Glucose 118 H Calcium 9.3 Phosphorus 2.4 L Magnesium 2.0 PG Care Time/CCT Total # of Minutes Spent Total Time Spent with Patient: Total time spent is greater than 50% in coordination of care (as documented) at patient's floor/unit and/or counseling patient: Coding Level of Care Code 86435 Subseq Hosp Care Lvl 2 Diagnoses Atrial fibrillation, permanent I48.21 Bradycardia R00.1 HTN (hypertension) I10 Acute confusion R41.0 Mitral regurgitation I34.0 Pericardial effusion I31.3
[2020-11-05] MEDS ORDERED: OPTIRAY 320 100ml IV ONE (11:28)
--- NOTE | 2020-11-05 11:35 | CT Scan Report ---
CT head/brain wo/w con CT DOSE: 1553.72 mGycm TECHNIQUE: Noncontrast images were obtained through the brain in the axial plane. The sequence was re peated following administration of 93 Optiray. A dose lowering technique was utilized adhering to th e principles of ALARA. HISTORY: Headache,garbled speech COMPARISON: 11/03/2020 FINDINGS: No intra or extra-axial mass lesions are visualized. There is no CT evidence of acute cortical infarc tion. There is no evidence of midline shift. There is no acute hemorrhage. No calvarial fractures ar e visualized. There are patchy white matter hypodensities likely on a small vessel basis. There are generalized atr ophic changes. There is a tiny lacunar infarct within the right caudate. There is no evidence of pathologic ventricular dilatation. There is a small ethmoid sinus polypoid density Postcontrast images reveal no pathologically enhancing masses. IMPRESSION: No acute intracranial findings ACT 112: Negative or not required by law. Electronically signed by: Sesar Wang M.D. 11/05/2020 11:34 AM
--- NOTE | 2020-11-05 12:26 | Hospitalist Progress Note ---
Date of Service November 05, 2020 Assessment & Plan (1) Acute confusion: -Likely secondary to recurrent UTI with possible ESBL E. coli -Patient presenting from [facility] for evaluation of confusion -Has been having confusion for more than a month and the condition is worsening -May be due to recent addition of Tylenol with codeine -Check UDS-positive for opioid which he has been getting and others pending -CT of the head remains negative -History of ESBL UTI and the urine culture is positive for E. coli seems to be ESBL again -Started intravenous Zosyn -History of cirrhosis however does not seem to be encephalopathic on exam, ammonia is just mildly elevated -We will observe in the hospital -Remains confused and drowsy with dysarthria Acute metabolic encephalopathy Secondary to recurrent ES BL E. coli UTI Acute confusion for 1 month with dysarthria and dysphagia MRI cannot be done but CT scan of the head with contrast showed tiny lacunar infarct within the right caudate nucleus We will consult neurology for further evaluation and management (2) Bradycardia: Heart rate remains stable since he is off digoxin and Cardizem (3) Atrial fibrillation: -Found to be in slow atrial fibrillation with rates in the high 30s at times -Check dig level-normal -Hold dig and diltiazem -Cardiology consult-appreciate input and recommendation -Not anticoagulated secondary to history of GI bleeding -Status post IVC filter and watchman procedure (4) Abnormal chest x-ray: -CXR shows right lung base opacities suggestive of atelectasis versus pneumonitis -No pulmonary symptoms -Afebrile, no leukocytosis -Check procalcitonin-negative (5) Diabetes mellitus, type 2: -Hgb A1c 5.3 04/2020 -Hold metformin and utilize NovoLog per protocol while hospitalized (6) Cirrhosis: -Continue lactulose (7) HTN (hypertension): -BP controlled, continue losartan -Remains on the upper side -I will start hydralazine is smaller dose -Has been on hydralazine 25 mg 3 times daily and blood pressure remains on the upper side (8) Peptic ulcer disease: -Continue PPI and sucralfate (9) COPD (chronic obstructive pulmonary disease): -No signs of acute exacerbation, continue home inhalers (10) Prostate cancer: -Receives Lupron injections (11) DVT prophylaxis: -SQ heparin Admission and Anticipated Discharge Date Admission Date: November 03, 2020 Subjective 11/04/2020 The patient was seen and examined in telemetry unit He was admitted with acute confusion and bradyarrhythmia Still remains confused but denies any other symptoms Denies any cardiac symptoms, any respiratory symptoms or any other neurological symptoms 11/05/2020 The patient was seen and examined in the telemetry unit He complains to have headache since this morning and has garbled speech He remains confused which has been going on for more than a month Denies any chest pain and or palpitation No fever and/or chills Review of Systems Review of Systems: All systems reviewed and are unremarkable except as noted below Neurologic: + generalized weakness, + tremor(s) (Likely intentional tremors) and + abnormal speech (Dysphasia) Physical Exam Physical Exam: Lying in bed with acute confusion and garbled speech Constitutional: + ill appearing and average body habitus Eyes: PERRL, conjunctivae normal, anicteric sclerae ENMT: external ear and nose normal, oropharynx normal Neck: trachea midline, no thyromegaly Respiratory: no respiratory distress Auscultation: lungs clear to auscultation bilaterally Cardiovascular: Rate/Rhythm: + irregularly irregular Heart Sounds: no murmur Extremities: no edema Gastrointestinal (Abdomen): Inspection/Auscultation: abdomen not distended Percussion/Palpation: abdomen soft; abdomen nontender Musculoskeletal: No acute arthritis in any joint Neurologic: moves all extremities and + confused; no focal motor deficits and no meningeal signs Speech / Cognition: + abnormal speech Motor/Sensory: + tremor (Intention tremor) Psychiatric: Mood: + depressed mood and + anxious mood Lymphatic: no cervical or axillary lymphadenopathy Results & Data Results & Data ([facility]) Vital Signs (Past 12 Hours) Vital Signs Temp Pulse Pulse Resp BP BP Pulse Ox 11/05/20 11:07 37.0 C 64 20 164/73 H 94 11/05/20 08:25 67 11/05/20 07:07 37.1 C 70 27 H 171/83 H 96 11/05/20 04:00 36.5 C 73 24 184/76 H 94 11/05/20 01:44 195/73 H 11/05/20 00:46 197/92 H Laboratory Results Short CBC 11/05/20 Range/Units 06:32 WBC 8.07 (4.8-10.8) K/uL Hgb 10.8 L (14.0-18.0) g/dL Hct 31.6 L (42-52) % Plt Count 119 L (130-400) K/uL BMP 11/05/20 06:32 Sodium 140 Potassium 3.6 Chloride 111 H Carbon Dioxide 25 BUN 16 Creatinine 1.05 Glucose 111 H Calcium 9.3 Medications Administered Current Inpatient Medications Acetaminophen (Acetaminophen 325 Mg Tab) 650 mg PO Q4H PRN PRN Reason: Pain or Fever Stop: 12/03/20 20:48 Last Admin: 11/05/20 08:13 Dose: 650 mg Documented by: Albuterol (Albut/Ipratrop 3mg/0.5mg Neb 3 Ml Vial) 3 ml NEB Q4R PRN PRN Reason: Shortness Of Breath Or Wheezing Stop: 12/03/20 20:48 Dicyclomine HCl (Dicyclomine Hcl 20 Mg Tab) 20 mg PO BID [facility] Stop: 12/03/20 20:59 Last Admin: 11/05/20 07:37 Dose: 20 mg Documented by: Fluticasone/Vilanterol (Fluticasone/Vilanterol 100/25mcg 14 Puffs/Inhaler) 1 puffs INH DAILY [facility] Stop: 12/04/20 08:59 Last Admin: 11/05/20 08:14 Dose: 1 puffs Documented by: Folic Acid (Folic Acid 1 Mg Tab) 1 mg PO QAM [facility] Stop: 12/04/20 08:59 Last Admin: 11/05/20 08:13 Dose: 1 mg Documented by: Heparin Sodium (Porcine) (Heparin Sod 5,000 Unit/0.5 Ml Vial) 5,000 units SQ Q8 [facility] Stop: 12/03/20 21:59 Last Admin: 11/05/20 05:48 Dose: Not Given Documented by: Hydralazine HCl (Hydralazine Hcl 25 Mg Tab) 25 mg PO TID [facility] Stop: 12/04/20 17:29 Last Admin: 11/05/20 07:37 Dose: 25 mg Documented by: Hydralazine HCl (Hydralazine Hcl 20 Mg/Ml Vial) 5 mg IV Q6H PRN PRN Reason: Hypertension Stop: 12/05/20 00:29 Last Admin: 11/05/20 00:47 Dose: 5 mg Documented by: Piperacillin Sod/Tazobactam (Sod 4.5 gm/ Dextrose) 120 mls @ 30 mls/hr IV Q8H [facility]; Protocol Stop: 11/14/20 21:59 Last Infusion: 11/05/20 09:02 Dose: Infused Documented by: Lactulose (Lactulose Syrup 20 Gm/30 Ml Udc) 20 gm PO BID [facility] Stop: 12/03/20 21:59 Last Admin: 11/05/20 07:36 Dose: 20 gm Documented by: Losartan Potassium (Losartan Potassium 25 Mg Tab) 25 mg PO QAM [facility] Stop: 12/04/20 08:59 Last Admin: 11/05/20 07:38 Dose: 25 mg Documented by: Miscellaneous Information (Piperacill/Tazobac Consult Active) 1 ea N/A UD PRN PRN Reason: Consult Stop: 12/04/20 16:31 Pantoprazole Sodium (Pantoprazole 40 Mg Tab) 40 mg PO BID [facility] Stop: 12/03/20 20:59 Last Admin: 11/05/20 07:37 Dose: 40 mg Documented by: Paroxetine HCl (Paroxetine Hcl 20 Mg Tab) 30 mg PO DAILY [facility] Stop: 12/04/20 08:59 Last Admin: 11/05/20 07:38 Dose: 30 mg Documented by: Sucralfate (Sucralfate 1 Gm Tab) 1 gm PO QID [facility] Stop: 12/03/20 20:59 Last Admin: 11/05/20 07:36 Dose: 1 gm Documented by: Tamsulosin HCl (Tamsulosin Hcl 0.4 Mg Cap) [facility] [place] Stop: 12/04/20 08:59 Last Admin: 11/05/20 08:13 Dose: 0.4 mg Documented by: Thiamine HCl (Thiamine Hcl 100 Mg Tab) 100 mg PO QAM [facility] Stop: 12/04/20 08:59 Last Admin: 11/05/20 08:14 Dose: 100 mg Documented by: Vitamin D (Cholecalciferol 1,000 Units 25 Mcg Tab) 1,[facility] [place] Stop: 12/04/20 08:59 Last Admin: 11/05/20 08:13 Dose: 1,000 units Documented by:
--- NOTE | 2020-11-05 14:35 | Electrocardiogram Report ---
Test Reason : Blood Pressure : / mmHG Vent. Rate : 068 BPM Atrial Rate : 028 BPM P-R Int : 000 ms QRS Dur : 128 ms QT Int : 414 ms P-R-T Axes : 000 -58 103 degrees QTc Int : 440 ms Atrial fibrillation Left axis deviation Non-specific intra-ventricular conduction block Abnormal ECG When compared with ECG of 04-NOV-2020 06:28, No significant change Confirmed by Luis Eduardo Dunn ([id number]) on 11/05/2020 2:34:40 PM Referred By: Cortez BOND Confirmed By:Luis Eduardo Dunn
[2020-11-05] MEDS: ERTAPENEM SODIUM 1,000 MG in SODIUM CHLORIDE 0.9% 50 ML IV SCH (16:00)
--- NOTE | 2020-11-05 16:26 | Communication Note ---
Date of Service: November 05, 2020 Dr. Garvin has asked me to evaluate Mr. Ramírez for evaluation of at least a 3-month period of episodic confusion according to the patient but according to the chart perhaps only a month or so. The history is very vague the patient is less than reliable and I reviewed a number of provider notes that indicate a duration of episodic confusion from 1 to 3 months in duration depending on who is obtaining history. The patient himself talks about episodes where he feels more confused and disoriented. He is no longer able to do a number of things that he was able to perform previously. Despite his lack of more the hospital education he has [facility] the [facility] that is quite legally savvy and is unable to process some of his legal issues anymore and this is concerning to him. I believe he at times needs help with some of his activities of daily living but he is a little vague about this He denies any headaches visual disturbances numbness or tingling does admit to some problems with gait and balance from time to time and admits to history of a prior stroke but is a little vague about when this occurred and does not tell me which side he might have had motor or sensory deficits resulting from his Past history does show mitral regurgitation permanent atrial fibrillation, hypertension, bradycardia which has resulted in holding some of his antiarrhythmic medications as per cardiology, gastroesophageal reflux, history of cirrhosis with apparent hepatic encephalopathy in the past, history of DVT with Manny filter, COPD, type 2 diabetes, metastatic prostate cancer, and abnormal chest x-ray with some pulmonary nodules only and some mild hyperammonemia on admission and a urinary tract infection with E. coli as o utlined in the chart also on admission being treated with Zosyn Medications at home include currently acetaminophen with codeine which is new and may be contributing to some of his confusion, cholecalciferol, dicyclomine digoxin, diltiazem, fluticasone folic acid, Gaviscon, lactulose 30 mg twice daily, Lupron every 3 months as treatment of his prostate cancer, losartan, Metformin, nitroglycerin, pantoprazole, paroxetine, Carafate, tamsulosin, and thiamine Review of systems very difficult to obtain from the patient as he can barely describe his confusion very well he really denies any recent fever sweats chills looks is always lost weight but denies this and even denies that he has diabetes seems unaware of the fact that he has some atrial fibrillation, recalls having a stroke but cannot tell me his symptoms and overall denies any knowledge of his prostate cancer so not sure obtaining of systems review from his of any value Family history is noncontributory. 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 [facility] in 2013 from another institution where he was also incarcerated for a number of years He cannot have an MRI apparently because of the IVC filter and there is also mention of a watchman device having been in place although this is not mentioned in cardiology notes A CT scan of the head shows age-appropriate atrophy and some leukoencephalopathy and old lacunar infarction but nothing other than the leukoencephalopathy would correlate with his confusion and memory loss Laboratory studies have been pretty unhelpful with a minimal elevation of the ammonia level and evidence for urinary tract infection Exam reveals a blood pressure 168/82 pulse is 72 and slightly irregular respirations 18 he is afebrile O2 saturation 95% He is a thin male who is actually alert and oriented he can name me the date and the year the month the season but stated he thought he was in [facility] but then after being reminded doing was in [employer]. He is very vague about how long he had been at [facility] and relied on one of the corrections officers to review his record and confirm it was since 2012. I did not do a Mini-Mental status score today as he was distracted discomfort the bathroom and was a little irritable Cranial nerves were intact with normal visual murcia facial motility and strength facial sensation gross visual acuity Gait was a little slow and shuffling but leg arms were in place. There was no obvious ataxia spasticity and can walk independently without assistance. He does have prominent tremor of the hands and is hard to tell how long this has been going on. He states it has been only a few months but I have the impression this is been present for up to several years. Again the history is vague but it has all the attributes of essential tremor and I do not see any superimposed asterixis myoclonus choreiform activity and is no cogwheeling or other evidence for parkinsonism Reflexes are hypoactive throughout absent at the ankles toes are downgoing no Clements signs are seen Strength testing reveals mild degree of distal weakness though he does not cooperate fully for lower extremity testing and he has got good strength in the arms good handgrips little generalized muscle and soft tissue wasting not inconsistent with his age Sensory examination reveals some reduced vibration over the lower extremities below the knees I suspect this man is developing cognitive impairment probably of the minimal type but possibly moving on into a more full-blown dementia and it is hard for me to and establish how long its been present. He also has a slightly flat irritable affect I am not sure how much of this may be due to an underlying depression He does not have much structural disease demonstrable by CT scan but does have what appears to be leukoencephalopathy and it be nice to get an MRI if we could I suspect the presence of the Manny and possibly the watchman type device or contraindications although details here are very vague. I have a low suspicion of metastatic prostate CA to the brain with a normal CT scan and the fact that while this disease does spread to the brain it does so with a relatively low frequency. I do not think it has a significant association with paraneoplastic issues either I see no reason to do a paraneoplastic profile in the setting I am going to recommend an EEG and will put an order in for 1 but there is no urgency and this can be done on an outpatient basis or on Sunday if he still here in the hospital I would suggest that he does have a formal assessment of his cognitive abilities. This could be done on an outpatient basis as well and the correction system may have a contract with a psychologist to perform these duties. I would continue his lactulose even though his ammonia level is not as high as certainly could keep the ammonia level under better control He might want to consider a psychiatry assessment to address depression and to get their input about how much cognitive impairment they feel is operating here I will meet checking by periodically this weekend if I am back in the hospital and if the EEG gets performed I will read it but frankly doubt we are going to see much on the tracing of the perhaps some mild generalized slowing at most Demetrius Grier MD
--- NOTE | 2020-11-05 16:30 | Communication Note ---
Date of Service: November 05, 2020 This is an addendum to my consultation. The patient also suffers from essential tremor and perhaps beta-blockade in the form of Inderal might help if cardiology feels that this would be something to consider. But he also has had bradycardia and this might not be a great choice Other options would be low-dose primidone 25 mg twice a day but again this can be sedating and Levi already talked about cognitive impairment not sure will be a kowalski choice either Currently the tremor is not that disabling and I do not feel we need to have any urgency in offering treatment and he can be seen on an as-needed basis on an outpatient visit if the long-term medical staff feels neurology needs to get involved with the tremor in the future Demetrius Grier MD Coding Level of Care Code None
[2020-11-06 06:13] LABS: Basophils # (auto) 0.06 K/uL (0-0.2); Basophils % (auto) 0.9 %; Eosinophils # (auto) 0.18 K/uL (0-0.5); Eosinophils % (auto) 2.8 %; Hematocrit (blood only) 31.4 % (42-52); Hemoglobin 10.6 g/dL (14.0-18.0); Immature Granulocytes # (auto) 0.02 K/uL (0.00-0.02); Immature Granulocytes % (auto) 0.3 %; Lymphocytes # (auto) 1.04 K/uL (1.2-3.4); Lymphocytes % (auto) 16.3 %; Mean Corpuscular Hemoglobin 33.2 pg (25-34); Mean Corpuscular Hgb Conc 33.8 g/dL (32-36); Mean Corpuscular Volume 98.4 fL (80-100); Mean Platelet Volume 10.9 fL (7.4-10.4); Monocytes # (auto) 0.64 K/uL (0.11-0.59); Neutrophils # (auto) 4.45 K/uL (1.4-6.5); Neutrophils % (auto) 69.7 %; Platelet Count 121 K/uL (130-400); RDW Coefficient of Variation 16.8 % (11.5-14.5); RDW Standard Deviation 60.4 fL (36.4-46.3); Red Blood Count 3.19 M/uL (4.7-6.1); White Blood Count 6.39 K/uL (4.8-10.8)
[2020-11-06] MEDS: HEPARIN SOD 5,000 UNIT/0.5 ML VIAL SQ SCH ×3 (06:15→22:40)
[2020-11-06 06:38] LABS: BUN Creatinine Ratio 21.1 (10-20); Calcium 9.2 mg/dl (8.5-10.1); Creatinine Clr Calc Pharmacy 77.7 ml/min; Est GFR (African American) 96.3 ml/min; Est GFR (Non-African American) 83.1 ml/min; Potassium 3.7 mmol/L (3.5-5.1)
[2020-11-06] MEDS: SUCRALFATE 1 GM TAB PO SCH ×4 (07:29→20:17)
[2020-11-06] MEDS: THIAMINE HCL 100 MG TAB PO SCH (07:29)
[2020-11-06] MEDS: PARoxetine HCL 20 MG TAB PO SCH (07:30)
[2020-11-06] MEDS: LACTULOSE SYRUP 20 GM/30 ML UDC PO SCH ×2 (07:30→20:17)
[2020-11-06] MEDS: CHOLECALCIFEROL 1,000 UNITS 25 MCG TAB PO SCH (07:30)
[2020-11-06] MEDS: hydrALAZINE HCL 25 MG TAB PO SCH ×3 (07:30→20:17)
[2020-11-06] MEDS: FOLIC ACID 1 MG TAB PO SCH (07:31)
[2020-11-06] MEDS: LOSARTAN POTASSIUM 25 MG TAB PO SCH (07:31)
[2020-11-06] MEDS: TAMSULOSIN HCL 0.4 MG CAP PO SCH (07:31)
[2020-11-06] MEDS: DICYCLOMINE HCL 20 MG TAB PO SCH ×2 (07:31→20:17)
[2020-11-06] MEDS: PANTOprazole 40 MG TAB PO SCH ×2 (07:31→20:17)
[2020-11-06] MEDS: FLUTICASONE/VILANTEROL 100/25MCG 14 PUFFS/INHALER INH SCH (07:32)
[2020-11-06] MEDS: ACETAMINOPHEN 325 MG TAB PO PRN ×2 (08:06→16:52)
--- NOTE | 2020-11-06 10:11 | Hospitalist Progress Note ---
Date of Service November 06, 2020 Assessment & Plan (1) Acute confusion: -Likely secondary to recurrent UTI with possible ESBL E. coli -Patient presenting from [facility] for evaluation of confusion -Has been having confusion for more than a month and the condition is worsening -May be due to recent addition of Tylenol with codeine -Check UDS-positive for opioid which he has been getting and others pending -CT of the head remains negative -History of ESBL UTI and the urine culture is positive for E. coli seems to be ESBL again -Started intravenous Zosyn -History of cirrhosis however does not seem to be encephalopathic on exam, ammonia is just mildly elevated -Remains pleasantly confused Acute metabolic encephalopathy Secondary to recurrent ES BL E. coli UTI Acute confusion for 1 month with dysarthria and dysphagia MRI cannot be done but CT scan of the head with contrast showed tiny lacunar infarct within the right caudate nucleus Appreciate neurology input and recommendation Will need to have outpatient neuropsychiatric evaluation EEG on Sunday Benign essential tremor We will observe-cannot give any beta blocking or calcium channel antagonist medication for bradyarrhythmia Primidone may cause more problem with confusion and drowsiness Will observe for now (2) Bradycardia: Heart rate remains stable since he is off digoxin and Cardizem Has been put on hydralazine for blood pressure control and the heart rate seems to be maintaining (3) Atrial fibrillation: -Found to be in slow atrial fibrillation with rates in the high 30s at times -Check dig level-normal -Hold dig and diltiazem -Cardiology consult-appreciate input and recommendation -Not anticoagulated secondary to history of GI bleeding -Status post IVC filter and watchman procedure (4) Abnormal chest x-ray: -CXR shows right lung base opacities suggestive of atelectasis versus pneumonitis -No pulmonary symptoms -Afebrile, no leukocytosis -Check procalcitonin-negative (5) Diabetes mellitus, type 2: -Hgb A1c 5.3 04/2020 -Hold metformin and utilize NovoLog per protocol while hospitalized (6) Cirrhosis: -Continue lactulose (7) HTN (hypertension): -BP controlled, continue losartan -Remains on the upper side -I will start hydralazine is smaller dose -Has been on hydralazine 25 mg 3 times daily and blood pressure remains on the upper side (8) Peptic ulcer disease: -Continue PPI and sucralfate (9) COPD (chronic obstructive pulmonary disease): -No signs of acute exacerbation, continue home inhalers (10) Prostate cancer: -Receives Lupron injections (11) DVT prophylaxis: -SQ heparin Admission and Anticipated Discharge Date Admission Date: November 03, 2020 Subjective 11/04/2020 The patient was seen and examined in telemetry unit He was admitted with acute confusion and bradyarrhythmia Still remains confused but denies any other symptoms Denies any cardiac symptoms, any respiratory symptoms or any other neurological symptoms 11/05/2020 The patient was seen and examined in the telemetry unit He complains to have headache since this morning and has garbled speech He remains confused which has been going on for more than a month Denies any chest pain and or palpitation No fever and/or chills 11/06/2020 The patient was seen and examined in telemetry unit He is little better but is still has confusion and minimal dysphagia Denies any fever and/or chills, no chest pain and/or palpitation Review of Systems Review of Systems: All systems reviewed and are unremarkable except as noted below Neurologic: + generalized weakness, + tremor(s) (Likely intentional tremors) and + abnormal speech (Dysphasia) Physical Exam Physical Exam: Lying in bed , pleasantly confused with dysphagia Constitutional: + ill appearing and average body habitus Eyes: PERRL, conjunctivae normal, anicteric sclerae ENMT: external ear and nose normal, oropharynx normal Neck: trachea midline, no thyromegaly Respiratory: no respiratory distress Auscultation: lungs clear to auscultation bilaterally Cardiovascular: Rate/Rhythm: + irregularly irregular Heart Sounds: no murmur Extremities: no edema Gastrointestinal (Abdomen): Inspection/Auscultation: abdomen not distended Percussion/Palpation: abdomen soft; abdomen nontender Musculoskeletal: No acute arthritis in any joint Neurologic: moves all extremities and + confused; no focal motor deficits and no meningeal signs Speech / Cognition: + abnormal speech Motor/Sensory: + tremor (Intention tremor) Psychiatric: Mood: + depressed mood and + anxious mood Lymphatic: no cervical or axillary lymphadenopathy Results & Data Results & Data ([facility]) Vital Signs (Past 12 Hours) Vital Signs Temp Pulse Pulse Resp BP BP Pulse Ox 11/06/20 08:50 74 11/06/20 07:27 36.8 C 73 16 171/88 H 94 11/06/20 04:35 37.2 C 72 17 188/87 H 97 11/05/20 23:59 70 11/05/20 22:57 36.7 C 72 18 159/74 H 94 Laboratory Results Short CBC 11/06/20 Range/Units 05:58 WBC 6.39 (4.8-10.8) K/uL Hgb 10.6 L (14.0-18.0) g/dL Hct 31.4 L (42-52) % Plt Count 121 L (130-400) K/uL BMP 11/06/20 05:58 Sodium 140 Potassium 3.7 Chloride 111 H Carbon Dioxide 26 BUN 18 Creatinine 0.86 Glucose 97 Calcium 9.2 Medications Administered Current Inpatient Medications Acetaminophen (Acetaminophen 325 Mg Tab) 650 mg PO Q4H PRN PRN Reason: Pain or Fever Stop: 12/03/20 20:48 Last Admin: 11/05/20 16:11 Dose: 650 mg Documented by: Albuterol (Albut/Ipratrop 3mg/0.5mg Neb 3 Ml Vial) 3 ml NEB Q4R PRN PRN Reason: Shortness Of Breath Or Wheezing Stop: 12/03/20 20:48 Dicyclomine HCl (Dicyclomine Hcl 20 Mg Tab) 20 mg PO BID STEPHANE Stop: 12/03/20 20:59 Last Admin: 11/06/20 07:31 Dose: 20 mg Documented by: Fluticasone/Vilanterol (Fluticasone/Vilanterol 100/25mcg 14 Puffs/Inhaler) 1 puffs INH DAILY STEPHANE Stop: 12/04/20 08:59 Last Admin: 11/06/20 07:32 Dose: 1 puffs Documented by: Folic Acid (Folic Acid 1 Mg Tab) 1 mg PO QAM [facility]PH[facility] Stop: 12/04/20 08:59 Last Admin: 11/06/20 07:31 Dose: 1 mg Documented by: Heparin Sodium (Porcine) (Heparin Sod 5,000 Unit/0.5 Ml Vial) 5,000 units SQ Q8 [facility]PH[facility] Stop: 12/03/20 21:59 Last Admin: 11/06/20 06:15 Dose: 5,000 units Documented by: Hydralazine HCl (Hydralazine Hcl 25 Mg Tab) 25 mg PO TID [facility] Stop: 12/04/20 17:29 Last Admin: 11/06/20 07:30 Dose: 25 mg Documented by: Hydralazine HCl (Hydralazine Hcl 20 Mg/Ml Vial) 5 mg IV Q6H PRN PRN Reason: Hypertension Stop: 12/05/20 00:29 Last Admin: 11/05/20 00:47 Dose: 5 mg Documented by: Ertapenem 1,000 mg/ Sodium (Chloride) 60 mls @ 100 mls/hr IV DAILY@1600 [facility]; Protocol Stop: 11/15/20 14:59 Last Infusion: 11/05/20 17:37 Dose: Infused Documented by: Lactulose (Lactulose Syrup 20 Gm/30 Ml Udc) 20 gm PO BID [facility] Stop: 12/03/20 21:59 Last Admin: 11/06/20 07:30 Dose: 20 gm Documented by: Losartan Potassium (Losartan Potassium 25 Mg Tab) [facility] [place] Stop: 12/04/20 08:59 Last Admin: 11/06/20 07:31 Dose: 25 mg Documented by: Pantoprazole Sodium (Pantoprazole 40 Mg Tab) 40 mg PO BID [facility] Stop: 12/03/20 20:59 Last Admin: 11/06/20 07:31 Dose: 40 mg Documented by: Paroxetine HCl (Paroxetine Hcl 20 Mg Tab) 30 mg PO DAILY [facility] Stop: 12/04/20 08:59 Last Admin: 11/06/20 07:30 Dose: 30 mg Documented by: Sucralfate (Sucralfate 1 Gm Tab) 1 gm PO QID [facility] Stop: 12/03/20 20:59 Last Admin: 11/06/20 07:29 Dose: 1 gm Documented by: Tamsulosin HCl (Tamsulosin Hcl 0.4 Mg Cap) [facility] [place] Stop: 12/04/20 08:59 Last Admin: 11/06/20 07:31 Dose: 0.4 mg Documented by: Thiamine HCl (Thiamine Hcl 100 Mg Tab) [facility] [place] Stop: 12/04/20 08:59 Last Admin: 11/06/20 07:29 Dose: 100 mg Documented by: Vitamin D (Cholecalciferol 1,000 Units 25 Mcg Tab) 1,[facility] [place] Stop: 12/04/20 08:59 Last Admin: 11/06/20 07:30 Dose: 1,000 units Documented by:
[2020-11-06 11:06] LABS: Codeine Urine 5340 ng/mL (<50); Hydrocodone Urine 170 ng/mL (<50); Hydromor Urine NEGATIVE ng/mL (<50); Morphine Urine 142 ng/mL (<50); Norhydrocodone Conf Ur 84 ng/mL (<50); Noroxycodone Urine NEGATIVE ng/mL (<50); Oxycodone Urine NEGATIVE ng/mL (<50); Oxymorph Urine NEGATIVE ng/mL (<50)
[2020-11-06] MEDS: ERTAPENEM SODIUM 1,000 MG in SODIUM CHLORIDE 0.9% 50 ML IV SCH (16:49)
[2020-11-07] MEDS: ZOLPIDEM TARTRATE 5 MG TAB PO PRN ×2 (03:22→20:28)
[2020-11-07] MEDS: ACETAMINOPHEN 325 MG TAB PO PRN ×3 (03:23→20:28)
[2020-11-07] MEDS: FLUTICASONE/VILANTEROL 100/25MCG 14 PUFFS/INHALER INH SCH (08:38)
[2020-11-07] MEDS: PARoxetine HCL 20 MG TAB PO SCH (08:40)
[2020-11-07] MEDS: LACTULOSE SYRUP 20 GM/30 ML UDC PO SCH ×2 (08:41→20:28)
[2020-11-07] MEDS: hydrALAZINE HCL 25 MG TAB PO SCH (08:42)
[2020-11-07] MEDS: LOSARTAN POTASSIUM 25 MG TAB PO SCH (08:42)
[2020-11-07] MEDS: TAMSULOSIN HCL 0.4 MG CAP PO SCH (08:43)
[2020-11-07] MEDS: THIAMINE HCL 100 MG TAB PO SCH (08:43)
[2020-11-07] MEDS: SUCRALFATE 1 GM TAB PO SCH ×4 (08:43→20:28)
[2020-11-07] MEDS: DICYCLOMINE HCL 20 MG TAB PO SCH ×2 (08:44→20:29)
[2020-11-07] MEDS: CHOLECALCIFEROL 1,000 UNITS 25 MCG TAB PO SCH (08:45)
[2020-11-07] MEDS: FOLIC ACID 1 MG TAB PO SCH (08:45)
[2020-11-07] MEDS: HEPARIN SOD 5,000 UNIT/0.5 ML VIAL SQ SCH ×3 (08:51→20:20)
[2020-11-07] MEDS: PANTOprazole 40 MG TAB PO SCH ×2 (09:45→20:28)
[2020-11-07] MEDS ORDERED: LOSARTAN POTASSIUM 25 MG TAB PO STA (12:01)
--- NOTE | 2020-11-07 12:01 | Hospitalist Progress Note ---
Date of Service November 07, 2020 Assessment & Plan (1) Acute confusion: -Likely secondary to recurrent UTI with possible ESBL E. coli -Patient presenting from [facility] for evaluation of confusion -Has been having confusion for more than a month and the condition is worsening -May be due to recent addition of Tylenol with codeine -Check UDS-positive for opioid which he has been getting and others pending -CT of the head remains negative -History of ESBL UTI and the urine culture is positive for E. coli seems to be ESBL again -Started intravenous Zosyn -History of cirrhosis however does not seem to be encephalopathic on exam, ammonia is just mildly elevated -Remains pleasantly confused Acute metabolic encephalopathy Secondary to recurrent ES BL E. coli UTI Acute confusion for 1 month with dysarthria and dysphagia MRI cannot be done but CT scan of the head with contrast showed tiny lacunar infarct within the right caudate nucleus Appreciate neurology input and recommendation Will need to have outpatient neuropsychiatric evaluation EEG on Sunday No change in his mental status Benign essential tremor We will observe-cannot give any beta blocking or calcium channel antagonist medication for bradyarrhythmia Primidone may cause more problem with confusion and drowsiness Will observe for now (2) Bradycardia: Heart rate remains stable since he is off digoxin and Cardizem Has been put on hydralazine for blood pressure control and the heart rate seems to be maintaining (3) Atrial fibrillation: -Found to be in slow atrial fibrillation with rates in the high 30s at times -Check dig level-normal -Hold dig and diltiazem -Cardiology consult-appreciate input and recommendation -Not anticoagulated secondary to history of GI bleeding -Status post IVC filter and watchman procedure (4) Abnormal chest x-ray: -CXR shows right lung base opacities suggestive of atelectasis versus pneumonitis -No pulmonary symptoms -Afebrile, no leukocytosis -Check procalcitonin-negative (5) Diabetes mellitus, type 2: -Hgb A1c 5.3 04/2020 -Hold metformin and utilize NovoLog per protocol while hospitalized (6) Cirrhosis: -Continue lactulose (7) HTN (hypertension): -BP controlled, continue losartan -Remains on the upper side -I will start hydralazine is smaller dose -Has been on hydralazine 25 mg 3 times daily and blood pressure remains on the upper side -Has been on losartan a small dose will increase the dose of losartan and discontinue hydralazine for tachycardia (8) Peptic ulcer disease: -Continue PPI and sucralfate (9) COPD (chronic obstructive pulmonary disease): -No signs of acute exacerbation, continue home inhalers (10) Prostate cancer: -Receives Lupron injections (11) DVT prophylaxis: -SQ heparin Admission and Anticipated Discharge Date Admission Date: November 03, 2020 Subjective 11/04/2020 The patient was seen and examined in telemetry unit He was admitted with acute confusion and bradyarrhythmia Still remains confused but denies any other symptoms Denies any cardiac symptoms, any respiratory symptoms or any other neurological symptoms 11/05/2020 The patient was seen and examined in the telemetry unit He complains to have headache since this morning and has garbled speech He remains confused which has been going on for more than a month Denies any chest pain and or palpitation No fever and/or chills 11/06/2020 The patient was seen and examined in telemetry unit He is little better but is still has confusion and minimal dysphagia Denies any fever and/or chills, no chest pain and/or palpitation 11/07/2020 The patient was seen and examined in telemetry unit He remains confused and dysarthric Denies any other neurological symptoms except mild frontal headache Denies any chest pain and/or palpitation Review of Systems Review of Systems: All systems reviewed and are unremarkable except as noted below Neurologic: + generalized weakness, + tremor(s) (Likely intentional tremors) and + abnormal speech (Dysphasia) Physical Exam Physical Exam: Lying in bed , pleasantly confused with dysphasia/dysarthria Constitutional: + ill appearing and average body habitus Eyes: PERRL, conjunctivae normal, anicteric sclerae ENMT: external ear and nose normal, oropharynx normal Neck: trachea midline, no thyromegaly Respiratory: no respiratory distress Auscultation: lungs clear to auscultation bilaterally Cardiovascular: Rate/Rhythm: + irregularly irregular Heart Sounds: no murmur Extremities: no edema Gastrointestinal (Abdomen): Inspection/Auscultation: abdomen not distended Percussion/Palpation: abdomen soft; abdomen nontender Musculoskeletal: No acute arthritis in any joint Neurologic: moves all extremities and + confused; no focal motor deficits and no meningeal signs Speech / Cognition: + abnormal speech Motor/Sensory: + tremor (Intention tremor) Psychiatric: Mood: + depressed mood and + anxious mood Lymphatic: no cervical or axillary lymphadenopathy Results & Data Results & Data ([facility]) Vital Signs (Past 12 Hours) Vital Signs Temp Pulse Pulse Resp BP Pulse Ox 11/07/20 07:42 36.4 C L 100 H 20 152/69 H 91 11/07/20 07:34 73 11/07/20 03:15 36.5 C 82 18 171/97 H 94 11/07/20 00:07 36.5 C 76 18 175/90 H 96 11/06/20 23:59 79 Medications Administered Current Inpatient Medications Acetaminophen (Acetaminophen 325 Mg Tab) 650 mg PO Q4H PRN PRN Reason: Pain or Fever Stop: 12/03/20 20:48 Last Admin: 11/07/20 08:38 Dose: 650 mg Documented by: Albuterol (Albut/Ipratrop 3mg/0.5mg Neb 3 Ml Vial) 3 ml NEB Q4R PRN PRN Reason: Shortness Of Breath Or Wheezing Stop: 12/03/20 20:48 Dicyclomine HCl (Dicyclomine Hcl 20 Mg Tab) 20 mg PO BID [facility] Stop: 12/03/20 20:59 Last Admin: 11/07/20 08:44 Dose: 20 mg Documented by: Fluticasone/Vilanterol (Fluticasone/Vilanterol 100/25mcg 14 Puffs/Inhaler) 1 puffs INH DAILY [facility] Stop: 12/04/20 08:59 Last Admin: 11/07/20 08:38 Dose: 1 puffs Documented by: Folic Acid (Folic Acid 1 Mg Tab) 1 mg PO QAM [facility] Stop: 12/04/20 08:59 Last Admin: 11/07/20 08:45 Dose: 1 mg Documented by: Heparin Sodium (Porcine) (Heparin Sod 5,000 Unit/0.5 Ml Vial) 5,000 units SQ Q8 [facility] Stop: 12/03/20 21:59 Last Admin: 11/07/20 08:51 Dose: 5,000 units Documented by: Hydralazine HCl (Hydralazine Hcl 25 Mg Tab) 25 mg PO TID [facility] Stop: 12/04/20 17:29 Last Admin: 11/07/20 08:42 Dose: 25 mg Documented by: Hydralazine HCl (Hydralazine Hcl 20 Mg/Ml Vial) 5 mg IV Q6H PRN PRN Reason: Hypertension Stop: 12/05/20 00:29 Last Admin: 11/05/20 00:47 Dose: 5 mg Documented by: Ertapenem 1,000 mg/ Sodium (Chloride) 60 mls @ 100 mls/hr IV DAILY@1600 [facility]; Protocol Stop: 11/15/20 14:59 Last Infusion: 11/06/20 17:40 Dose: Infused Documented by: Lactulose (Lactulose Syrup 20 Gm/30 Ml Udc) 20 gm PO BID [facility] Stop: 12/03/20 21:59 Last Admin: 11/07/20 08:41 Dose: 20 gm Documented by: Losartan Potassium (Losartan Potassium 25 Mg Tab) 25 mg PO QAM [facility] Stop: 12/04/20 08:59 Last Admin: 11/07/20 08:42 Dose: 25 mg Documented by: Pantoprazole Sodium (Pantoprazole 40 Mg Tab) 40 mg PO BID [facility] Stop: 12/03/20 20:59 Last Admin: 11/07/20 09:45 Dose: 40 mg Documented by: Paroxetine HCl (Paroxetine Hcl 20 Mg Tab) 30 mg PO DAILY [facility] Stop: 12/04/20 08:59 Last Admin: 11/07/20 08:40 Dose: 30 mg Documented by: Sucralfate (Sucralfate 1 Gm Tab) 1 gm PO QID [facility] Stop: 12/03/20 20:59 Last Admin: 11/07/20 08:43 Dose: 1 gm Documented by: Tamsulosin HCl (Tamsulosin Hcl 0.4 Mg Cap) [facility] Stop: 12/04/20 08:59 Last Admin: 11/07/20 08:43 Dose: 0.4 mg Documented by: Thiamine HCl (Thiamine Hcl 100 Mg Tab) [facility] [place] Stop: 12/04/20 08:59 Last Admin: 11/07/20 08:43 Dose: 100 mg Documented by: Vitamin D (Cholecalciferol 1,000 Units 25 Mcg Tab) 1,000 units PO QAM [facility] Stop: 12/04/20 08:59 Last Admin: 11/07/20 08:45 Dose: 1,000 units Documented by: Zolpidem Tartrate (Zolpidem Tartrate 5 Mg Tab) 5 mg PO HS PRN PRN Reason: Sleep Stop: 12/07/20 02:32 Last Admin: 11/07/20 03:22 Dose: 5 mg Documented by:
[2020-11-07] MEDS: ERTAPENEM SODIUM 1,000 MG in SODIUM CHLORIDE 0.9% 50 ML IV SCH (16:46)
[2020-11-07] MEDS: hydrALAZINE HCL 20 MG/ML VIAL IV PRN (20:29)
[2020-11-08] MEDS: ACETAMINOPHEN 325 MG TAB PO PRN ×2 (06:04→15:24)
[2020-11-08] MEDS: HEPARIN SOD 5,000 UNIT/0.5 ML VIAL SQ SCH ×3 (06:05→21:09)
[2020-11-08 06:24] LABS: Basophils # (auto) 0.07 K/uL (0-0.2); Basophils % (auto) 1.2 %; Eosinophils # (auto) 0.21 K/uL (0-0.5); Eosinophils % (auto) 3.6 %; Hematocrit (blood only) 33.3 % (42-52); Hemoglobin 11.2 g/dL (14.0-18.0); Immature Granulocytes # (auto) 0.01 K/uL (0.00-0.02); Immature Granulocytes % (auto) 0.2 %; Lymphocytes # (auto) 0.93 K/uL (1.2-3.4); Lymphocytes % (auto) 16.1 %; Mean Corpuscular Hemoglobin 32.7 pg (25-34); Mean Corpuscular Hgb Conc 33.6 g/dL (32-36); Mean Corpuscular Volume 97.1 fL (80-100); Mean Platelet Volume 10.5 fL (7.4-10.4); Monocytes % (auto) 10.4 %; Neutrophils # (auto) 3.94 K/uL (1.4-6.5); Neutrophils % (auto) 68.5 %; Platelet Count 124 K/uL (130-400); RDW Coefficient of Variation 17.1 % (11.5-14.5); RDW Standard Deviation 60.8 fL (36.4-46.3); Red Blood Count 3.43 M/uL (4.7-6.1); White Blood Count 5.76 K/uL (4.8-10.8)
[2020-11-08 06:57] LABS: BUN Creatinine Ratio 21.4 (10-20); Calcium 9.7 mg/dl (8.5-10.1); Creatinine Clr Calc Pharmacy 84.6 ml/min; Est GFR (African American) 99.7 ml/min; Potassium 3.8 mmol/L (3.5-5.1)
[2020-11-08] MEDS: CHOLECALCIFEROL 1,000 UNITS 25 MCG TAB PO SCH (08:15)
[2020-11-08] MEDS: LOSARTAN POTASSIUM 50 MG TAB PO SCH (08:15)
[2020-11-08] MEDS: DICYCLOMINE HCL 20 MG TAB PO SCH ×2 (08:15→21:12)
[2020-11-08] MEDS: FOLIC ACID 1 MG TAB PO SCH (08:15)
[2020-11-08] MEDS: SUCRALFATE 1 GM TAB PO SCH ×4 (08:15→21:08)
[2020-11-08] MEDS: THIAMINE HCL 100 MG TAB PO SCH (08:16)
[2020-11-08] MEDS: TAMSULOSIN HCL 0.4 MG CAP PO SCH (08:16)
[2020-11-08] MEDS: PARoxetine HCL 20 MG TAB PO SCH (08:16)
[2020-11-08] MEDS: LACTULOSE SYRUP 20 GM/30 ML UDC PO SCH ×2 (08:16→21:11)
[2020-11-08] MEDS: PANTOprazole 40 MG TAB PO SCH ×2 (08:16→21:11)
[2020-11-08] MEDS: FLUTICASONE/VILANTEROL 100/25MCG 14 PUFFS/INHALER INH SCH (08:17)
--- NOTE | 2020-11-08 15:16 | Communication Note ---
Date of Service: November 08, 2020 For unclear reasons the order for an EEG that was read Sunday was not transmitted and the study that I requested has not been performed. The patient will require outpatient cognitive testing but this can be arranged through institution and depending on what is found then appropriate psychiatry or neurology referrals can be made. Since she is still here in the hospital I see no harm agree repeating the order for the EEG to make sure he does not have any periodic sharp and slow-wave discharges or any abnormal findings that might suggest the possibility of a prion disorder but frankly his history is so vague but I doubt this is the case. He certainly has never underlying medical illnesses and is on some medications that may produce cognitive impairment none none Lupron for his prostate cancer which can induce memory deficits I am going to order the EEG and will report the results but for now I think my recommendations for Sunday should stand i.e. once discharged she should have outpatient neurocognitive evaluation and depending on results then perhaps consideration of agent such as Aricept or Namenda for if he has significant depression then change his antidepressant regimen In terms of his anticoagulation program this decision is going to rest entirely with cardiology and his primary care in light of his history of GI bleeding Demetrius Grier
--- NOTE | 2020-11-08 15:22 | Hospitalist Progress Note ---
Date of Service November 08, 2020 Assessment & Plan (1) Acute confusion: -Likely secondary to recurrent UTI with possible ESBL E. coli -Patient presenting from [facility] for evaluation of confusion -Has been having confusion for more than a month and the condition is worsening -May be due to recent addition of Tylenol with codeine -Check UDS-positive for opioid which he has been getting and others pending -CT of the head remains negative -History of ESBL UTI and the urine culture is positive for E. coli seems to be ESBL again -Started intravenous Zosyn -History of cirrhosis however does not seem to be encephalopathic on exam, ammonia is just mildly elevated -Remains pleasantly confused -Will have EEG today and outpatient neuropsychiatric evaluation as per the neurologist Acute metabolic encephalopathy Secondary to recurrent ES BL E. coli UTI Acute confusion for 1 month with dysarthria and dysphagia MRI cannot be done but CT scan of the head with contrast showed tiny lacunar infarct within the right caudate nucleus Appreciate neurology input and recommendation Will need to have outpatient neuropsychiatric evaluation EEG on Sunday No change in his mental status-we will have outpatient neuropsychiatric evaluation as per the neurologist Benign essential tremor We will observe-cannot give any beta blocking or calcium channel antagonist medication for bradyarrhythmia Primidone may cause more problem with confusion and drowsiness Will observe for now (2) Bradycardia: Heart rate remains stable since he is off digoxin and Cardizem Has been put on hydralazine for blood pressure control and the heart rate seems to be maintaining Reported to have more than 3-second pause this morning Cardiology will be notified for this (3) Atrial fibrillation: -Found to be in slow atrial fibrillation with rates in the high 30s at times -Check dig level-normal -Hold dig and diltiazem -Cardiology consult-appreciate input and recommendation -Not anticoagulated secondary to history of GI bleeding -Status post IVC filter and watchman procedure (4) Abnormal chest x-ray: -CXR shows right lung base opacities suggestive of atelectasis versus pneumonitis -No pulmonary symptoms -Afebrile, no leukocytosis -Check procalcitonin-negative (5) Diabetes mellitus, type 2: -Hgb A1c 5.3 04/2020 -Hold metformin and utilize NovoLog per protocol while hospitalized (6) Cirrhosis: -Continue lactulose (7) HTN (hypertension): -BP controlled, continue losartan -Remains on the upper side -I will start hydralazine is smaller dose -Has been on hydralazine 25 mg 3 times daily and blood pressure remains on the upper side -Has been on losartan a small dose will increase the dose of losartan and discontinue hydralazine for tachycardia -Blood pressure seems to be reasonably stable and will continue losartan with increasing dose -Further management as per the manager of environmental services (8) Peptic ulcer disease: -Continue PPI and sucralfate (9) COPD (chronic obstructive pulmonary disease): -No signs of acute exacerbation, continue home inhalers (10) Prostate cancer: -Receives Lupron injections (11) DVT prophylaxis: -SQ heparin Admission and Anticipated Discharge Date Admission Date: November 03, 2020 Subjective 11/04/2020 The patient was seen and examined in telemetry unit He was admitted with acute confusion and bradyarrhythmia Still remains confused but denies any other symptoms Denies any cardiac symptoms, any respiratory symptoms or any other neurological symptoms 11/05/2020 The patient was seen and examined in the telemetry unit He complains to have headache since this morning and has garbled speech He remains confused which has been going on for more than a month Denies any chest pain and or palpitation No fever and/or chills 11/06/2020 The patient was seen and examined in telemetry unit He is little better but is still has confusion and minimal dysphagia Denies any fever and/or chills, no chest pain and/or palpitation 11/07/2020 The patient was seen and examined in telemetry unit He remains confused and dysarthric Denies any other neurological symptoms except mild frontal headache Denies any chest pain and/or palpitation 11/08/2020 The patient was seen and examined in telemetry unit He remains confused but a little better compared with yesterday Remains dysarthric and dysphasic Noted to have a 3-second pause on monitor as per the nurse Review of Systems Review of Systems: All systems reviewed and are unremarkable except as noted below Neurologic: + generalized weakness, + tremor(s) (Likely intentional tremors) and + abnormal speech (Dysphasia) Physical Exam Physical Exam: Lying in bed , pleasantly confused with dysphasia/dysarthria Constitutional: + ill appearing and average body habitus Eyes: PERRL, conjunctivae normal, anicteric sclerae ENMT: external ear and nose normal, oropharynx normal Neck: trachea midline, no thyromegaly Respiratory: no respiratory distress Auscultation: lungs clear to auscultation bilaterally Cardiovascular: Rate/Rhythm: + irregularly irregular Heart Sounds: no murmur Extremities: no edema Gastrointestinal (Abdomen): Inspection/Auscultation: abdomen not distended Percussion/Palpation: abdomen soft; abdomen nontender Musculoskeletal: No acute arthritis in any joint Neurologic: moves all extremities and + confused; no focal motor deficits and no meningeal signs Speech / Cognition: + abnormal speech Motor/Sensory: + tremor (Intention tremor) Psychiatric: Mood: + depressed mood and + anxious mood Lymphatic: no cervical or axillary lymphadenopathy Results & Data Results & Data ([facility]) Vital Signs (Past 12 Hours) Vital Signs Temp Pulse Resp BP BP Pulse Ox 11/08/20 15:15 36.7 C 66 18 175/88 H 95 11/08/20 11:44 36.9 C 74 20 165/86 H 94 11/08/20 06:57 36.6 C 72 19 181/86 H 93 Laboratory Results Short CBC 11/08/20 Range/Units 06:11 WBC 5.76 (4.8-10.8) K/uL Hgb 11.2 L (14.0-18.0) g/dL Hct 33.3 L (42-52) % Plt Count 124 L (130-400) K/uL BMP 11/08/20 06:11 Sodium 141 Potassium 3.8 Chloride 111 H Carbon Dioxide 24 BUN 17 Creatinine 0.79 Glucose 89 Calcium 9.7 Medications Administered Current Inpatient Medications Acetaminophen (Acetaminophen 325 Mg Tab) 650 mg PO Q4H PRN PRN Reason: Pain or Fever Stop: 12/03/20 20:48 Last Admin: 11/08/20 15:24 Dose: 650 mg Documented by: Albuterol (Albut/Ipratrop 3mg/0.5mg Neb 3 Ml Vial) 3 ml NEB Q4R PRN PRN Reason: Shortness Of Breath Or Wheezing Stop: 12/03/20 20:48 Dicyclomine HCl (Dicyclomine Hcl 20 Mg Tab) 20 mg PO BID [facility] Stop: 12/03/20 20:59 Last Admin: 11/08/20 08:15 Dose: 20 mg Documented by: Fluticasone/Vilanterol (Fluticasone/Vilanterol 100/25mcg 14 Puffs/Inhaler) 1 puffs INH DAILY [facility] Stop: 12/04/20 08:59 Last Admin: 11/08/20 08:17 Dose: 1 puffs Documented by: Folic Acid (Folic Acid 1 Mg Tab) 1 mg PO QAM [facility] Stop: 12/04/20 08:59 Last Admin: 11/08/20 08:15 Dose: 1 mg Documented by: Heparin Sodium (Porcine) (Heparin Sod 5,000 Unit/0.5 Ml Vial) 5,000 units SQ Q8 [facility] Stop: 12/03/20 21:59 Last Admin: 11/08/20 15:17 Dose: 5,000 units Documented by: Hydralazine HCl (Hydralazine Hcl 20 Mg/Ml Vial) 5 mg IV Q6H PRN PRN Reason: Hypertension Stop: 12/05/20 00:29 Last Admin: 11/07/20 20:29 Dose: 5 mg Documented by: Ertapenem 1,000 mg/ Sodium (Chloride) 60 mls @ 100 mls/hr IV DAILY@1600 [facility]; Protocol Stop: 11/15/20 14:59 Last Infusion: 11/07/20 17:43 Dose: Infused Documented by: Lactulose (Lactulose Syrup 20 Gm/30 Ml Udc) 20 gm PO BID [facility] Stop: 12/03/20 21:59 Last Admin: 11/08/20 08:16 Dose: 20 gm Documented by: Losartan Potassium (Losartan Potassium 50 Mg Tab) 50 mg PO QAM [facility] Stop: 12/08/20 08:59 Last Admin: 11/08/20 08:15 Dose: 50 mg Documented by: Pantoprazole Sodium (Pantoprazole 40 Mg Tab) 40 mg PO BID [facility] Stop: 12/03/20 20:59 Last Admin: 11/08/20 08:16 Dose: 40 mg Documented by: Paroxetine HCl (Paroxetine Hcl 20 Mg Tab) 30 mg PO DAILY [facility] Stop: 12/04/20 08:59 Last Admin: 11/08/20 08:16 Dose: 30 mg Documented by: Sucralfate (Sucralfate 1 Gm Tab) 1 gm PO QID [facility] Stop: 12/03/20 20:59 Last Admin: 11/08/20 11:51 Dose: 1 gm Documented by: Tamsulosin HCl (Tamsulosin Hcl 0.4 Mg Cap) 0.4 mg PO QAM [facility] Stop: 12/04/20 08:59 Last Admin: 11/08/20 08:16 Dose: 0.4 mg Documented by: Thiamine HCl (Thiamine Hcl 100 Mg Tab) [address] [facility] Stop: 12/04/20 08:59 Last Admin: 11/08/20 08:16 Dose: 100 mg Documented by: Vitamin D (Cholecalciferol 1,000 Units 25 Mcg Tab) 1,[address] [facility] Stop: 12/04/20 08:59 Last Admin: 11/08/20 08:15 Dose: 1,000 units Documented by: Zolpidem Tartrate (Zolpidem Tartrate 5 Mg Tab) 5 mg PO HS PRN PRN Reason: Sleep Stop: 12/07/20 02:32 Last Admin: 11/07/20 20:28 Dose: 5 mg Documented by:
[2020-11-08] MEDS: ERTAPENEM SODIUM 1,000 MG in SODIUM CHLORIDE 0.9% 50 ML IV SCH (17:11)
[2020-11-09] MEDS: hydrALAZINE HCL 20 MG/ML VIAL IV PRN (05:09)
[2020-11-09] MEDS: HEPARIN SOD 5,000 UNIT/0.5 ML VIAL SQ SCH ×2 (05:15→13:14)
[2020-11-09] MEDS: DICYCLOMINE HCL 20 MG TAB PO SCH (08:05)
[2020-11-09] MEDS: FLUTICASONE/VILANTEROL 100/25MCG 14 PUFFS/INHALER INH SCH (08:05)
[2020-11-09] MEDS: LOSARTAN POTASSIUM 50 MG TAB PO SCH (08:05)
[2020-11-09] MEDS: PARoxetine HCL 20 MG TAB PO SCH (08:05)
[2020-11-09] MEDS: TAMSULOSIN HCL 0.4 MG CAP PO SCH (08:05)
[2020-11-09] MEDS: FOLIC ACID 1 MG TAB PO SCH (08:05)
[2020-11-09] MEDS: CHOLECALCIFEROL 1,000 UNITS 25 MCG TAB PO SCH (08:06)
[2020-11-09] MEDS: THIAMINE HCL 100 MG TAB PO SCH (08:06)
[2020-11-09] MEDS: PANTOprazole 40 MG TAB PO SCH (08:06)
[2020-11-09] MEDS: SUCRALFATE 1 GM TAB PO SCH ×2 (08:06→13:14)
[2020-11-09] MEDS: LACTULOSE SYRUP 20 GM/30 ML UDC PO SCH (08:06)
--- NOTE | 2020-11-09 10:17 | Electroencephalogram ---
EEG Procedure Note Date of Service November 09, 2020 Start / End Times Start Time: 0700 End Time: 07 Referring Physician Demetrius Grier MD History memory loss and episodic confusion Home Medication List Medication Instructions Recorded Confirmed Type folic acid 1 mg PO QAM 06/12/18 11/03/20 History lactulose 30 ml PO BID 06/12/18 11/03/20 History metformin 500 mg PO HS 06/12/18 11/03/20 History nitroglycerin [Nitrostat] 0.4 mg SUBLINGUAL UD PRN 06/12/18 11/03/20 History diltiazem HCl 180 mg PO QAM 12/06/18 11/03/20 History tamsulosin 0.4 mg PO QAM 02/06/19 11/03/20 History acetaminophen-codeine 2 tab PO BID PRN 05/08/20 11/03/20 History digoxin 250 mcg PO QAM 05/08/20 11/03/20 History fluticasone propion-salmeterol 1 inh INHALATION BID 05/08/20 11/03/20 History [Wixela Inhub] pantoprazole 40 mg PO BID 56 Days #112 tab 05/11/20 11/03/20 Rx dicyclomine 20 mg PO BID 05/22/20 11/03/20 History Gaviscon Extra Strength 1 tab PO QID PRN 07/09/20 11/03/20 History losartan 25 mg PO QAM 07/09/20 11/03/20 History thiamine mononitrate (vit B1) 100 mg PO QAM 07/09/20 11/03/20 History cholecalciferol (vitamin D3) 25 mcg PO QAM 07/26/20 11/03/20 History [Vitamin D3] leuprolide (3 month) 22.5 mg (3 22.5 mg SUBCUT UD ea 09/21/20 11/03/20 History month) subcutaneous syringe sucralfate 1 gram tablet 1 g PO QID tab 09/21/20 11/03/20 History paroxetine HCl 30 mg PO DAILY 11/03/20 11/03/20 History Inpatient Medication List Acetaminophen (Acetaminophen 325 Mg Tab) 650 mg PO Q4H PRN PRN Reason: Pain or Fever Stop: 12/03/20 20:48 Last Admin: 11/08/20 15:24 Dose: 650 mg Documented by: [id number] Admin: 11/08/20 06:04 Dose: 650 mg Documented by: [id number] Admin: 11/07/20 20:28 Dose: 650 mg Documented by: [id number] Admin: 11/07/20 08:38 Dose: 650 mg Documented by: [id number] Admin: 11/07/20 03:23 Dose: 650 mg Documented by: [id number] Admin: 11/06/20 16:52 Dose: 650 mg Documented by: [id number] Admin: 11/06/20 08:06 Dose: 650 mg Documented by: [id number] Admin: 11/05/20 16:11 Dose: 650 mg Documented by: [id number] Admin: 11/05/20 08:13 Dose: 650 mg Documented by: [id number] Dicyclomine HCl (Dicyclomine Hcl 20 Mg Tab) 20 mg PO BID [facility] Stop: 12/03/20 20:59 Last Admin: 11/09/20 08:05 Dose: 20 mg Documented by: [id number] Admin: 11/08/20 21:12 Dose: 20 mg Documented by: [id number] Admin: 11/08/20 08:15 Dose: 20 mg Documented by: [id number] Admin: 11/07/20 20:29 Dose: 20 mg Documented by: [id number] Admin: 11/07/20 08:44 Dose: 20 mg Documented by: [id number] Admin: 11/06/20 20:17 Dose: 20 mg Documented by: [id number] Admin: 11/06/20 07:31 Dose: 20 mg Documented by: [id number] Admin: 11/05/20 19:57 Dose: 20 mg Documented by: [id number] Admin: 11/05/20 07:37 Dose: 20 mg Documented by: [id number] Admin: 11/04/20 21:28 Dose: 20 mg Documented by: [id number] Admin: 11/04/20 09:12 Dose: 20 mg Documented by: [id number] Admin: 11/03/20 22:10 Dose: 20 mg Documented by: [id number] Fluticasone/Vilanterol (Fluticasone/Vilanterol 100/25mcg 14 Puffs/Inhaler) 1 puffs INH DAILY [facility] Stop: 12/04/20 08:59 Last Admin: 11/09/20 08:05 Dose: 1 puffs Documented by: [id number] Admin: 11/08/20 08:17 Dose: 1 puffs Documented by: [id number] Admin: 11/07/20 08:38 Dose: 1 puffs Documented by: [id number] Admin: 11/06/20 07:32 Dose: 1 puffs Documented by: [id number] Admin: 11/05/20 08:14 Dose: 1 puffs Documented by: [id number] Admin: 11/04/20 09:14 Dose: 1 puffs Documented by: [id number] Folic Acid (Folic Acid 1 Mg Tab) 1 mg PO QAM [facility] Stop: 12/04/20 08:59 Last Admin: 11/09/20 08:05 Dose: 1 mg Documented by: [id number] Admin: 11/08/20 08:15 Dose: 1 mg Documented by: [id number] Admin: 11/07/20 08:45 Dose: 1 mg Documented by: [id number] Admin: 11/06/20 07:31 Dose: 1 mg Documented by: [id number] Admin: 11/05/20 08:13 Dose: 1 mg Documented by: [id number] Admin: 11/04/20 09:13 Dose: 1 mg Documented by: [id number] Heparin Sodium (Porcine) (Heparin Sod 5,000 Unit/0.5 Ml Vial) 5,000 units SQ Q8 [facility] Stop: 12/03/20 21:59 Last Admin: 11/09/20 05:15 Dose: 5,000 units Documented by: [id number] Admin: 11/08/20 21:09 Dose: 5,000 units Documented by: [id number] Admin: 11/08/20 15:17 Dose: 5,000 units Documented by: [id number] Admin: 11/08/20 06:05 Dose: 5,000 units Documented by: [id number] Admin: 11/07/20 20:20 Dose: 5,000 units Documented by: [id number] Admin: 11/07/20 13:54 Dose: 5,000 units Documented by: [id number] Admin: 11/07/20 08:51 Dose: 5,000 units Documented by: [id number] Admin: 11/06/20 22:40 Dose: 5,000 units Documented by: [id number] Admin: 11/06/20 12:25 Dose: Not Given Documented by: [id number] Admin: 11/06/20 06:15 Dose: 5,000 units Documented by: [id number] Admin: 11/05/20 23:06 Dose: 5,000 units Documented by: [id number] Admin: 11/05/20 12:32 Dose: Not Given Documented by: [id number] Admin: 11/05/20 05:48 Dose: Not Given Documented by: [id number] Admin: 11/04/20 21:30 Dose: Not Given Documented by: [id number] Admin: 11/04/20 13:50 Dose: Not Given Documented by: [id number] Admin: 11/04/20 05:42 Dose: Not Given Documented by: [id number] Admin: 11/03/20 22:10 Dose: Not Given Documented by: [id number] Hydralazine HCl (Hydralazine Hcl 20 Mg/Ml Vial) 5 mg IV Q6H PRN PRN Reason: Hypertension Stop: 12/05/20 00:29 Last Admin: 11/09/20 05:09 Dose: 5 mg Documented by: [id number] Admin: 11/07/20 20:29 Dose: 5 mg Documented by: [id number] Admin: 11/05/20 00:47 Dose: 5 mg Documented by: [id number] Ertapenem 1,000 mg/ Sodium (Chloride) 60 mls @ 100 mls/hr IV DAILY@1600 [facility]; Protocol Stop: 11/15/20 14:59 Last Infusion: 11/08/20 18:02 Dose: 0 mls/hr Documented by: [id number] Admin: 11/08/20 17:11 Dose: 100 mls/hr Documented by: [id number] Infusion: 11/07/20 17:43 Dose: 0 mls/hr Documented by: [id number] Admin: 11/07/20 16:46 Dose: 100 mls/hr Documented by: [id number] Infusion: 11/06/20 17:40 Dose: 0 mls/hr Documented by: [id number] Admin: 11/06/20 16:49 Dose: 100 mls/hr Documented by: [id number] Infusion: 11/05/20 17:37 Dose: 0 mls/hr Documented by: [id number] Admin: 11/05/20 16:00 Dose: 100 mls/hr Documented by: [id number] Lactulose (Lactulose Syrup 20 Gm/30 Ml Udc) 20 gm PO BID [facility] Stop: 12/03/20 21:59 Last Admin: 11/09/20 08:06 Dose: Not Given Documented by: [id number] Admin: 11/08/20 21:11 Dose: Not Given Documented by: [id number] Admin: 11/08/20 08:16 Dose: 20 gm Documented by: [id number] Admin: 11/07/20 20:28 Dose: 20 gm Documented by: [id number] Admin: 11/07/20 08:41 Dose: 20 gm Documented by: [id number] Admin: 11/06/20 20:17 Dose: 20 gm Documented by: [id number] Admin: 11/06/20 07:30 Dose: 20 gm Documented by: [id number] Admin: 11/05/20 19:57 Dose: 20 gm Documented by: [id number] Admin: 11/05/20 07:36 Dose: 20 gm Documented by: [id number] Admin: 11/04/20 21:48 Dose: 20 gm Documented by: [id number] Admin: 11/04/20 09:13 Dose: 20 gm Documented by: [id number] Admin: 11/03/20 22:10 Dose: 20 gm Documented by: [id number] Losartan Potassium (Losartan Potassium 50 Mg Tab) 50 mg PO QAM [facility] Stop: 12/08/20 08:59 Last Admin: 11/09/20 08:05 Dose: 50 mg Documented by: [id number] Admin: 11/08/20 08:15 Dose: 50 mg Documented by: [id number] Pantoprazole Sodium (Pantoprazole 40 Mg Tab) 40 mg PO BID [facility] Stop: 12/03/20 20:59 Last Admin: 11/09/20 08:06 Dose: 40 mg Documented by: [id number] Admin: 11/08/20 21:11 Dose: 40 mg Documented by: [id number] Admin: 11/08/20 08:16 Dose: 40 mg Documented by: [id number] Admin: 11/07/20 20:28 Dose: 40 mg Documented by: [id number] Admin: 11/07/20 09:45 Dose: 40 mg Documented by: [id number] Admin: 11/06/20 20:17 Dose: 40 mg Documented by: [id number] Admin: 11/06/20 07:31 Dose: 40 mg Documented by: [id number] Admin: 11/05/20 19:57 Dose: 40 mg Documented by: [id number] Admin: 11/05/20 07:37 Dose: 40 mg Documented by: [id number] Admin: 11/04/20 21:29 Dose: 40 mg Documented by: [id number] Admin: 11/04/20 09:12 Dose: 40 mg Documented by: [id number] Admin: 11/03/20 22:11 Dose: 40 mg Documented by: [id number] Paroxetine HCl (Paroxetine Hcl 20 Mg Tab) 30 mg PO DAILY [facility] Stop: 12/04/20 08:59 Last Admin: 11/09/20 08:05 Dose: 30 mg Documented by: [id number] Admin: 11/08/20 08:16 Dose: 30 mg Documented by: [id number] Admin: 11/07/20 08:40 Dose: 30 mg Documented by: [id number] Admin: 11/06/20 07:30 Dose: 30 mg Documented by: [id number] Admin: 11/05/20 07:38 Dose: 30 mg Documented by: [id number] Admin: 11/04/20 09:13 Dose: 30 mg Documented by: [id number] Sucralfate (Sucralfate 1 Gm Tab) 1 gm PO QID [facility] Stop: 12/03/20 20:59 Last Admin: 11/09/20 08:06 Dose: 1 gm Documented by: [id number] Admin: 11/08/20 21:08 Dose: 1 gm Documented by: [id number] Admin: 11/08/20 17:14 Dose: Not Given Documented by: [id number] Admin: 11/08/20 11:51 Dose: 1 gm Documented by: [id number] Admin: 11/08/20 08:15 Dose: 1 gm Documented by: [id number] Admin: 11/07/20 20:28 Dose: 1 gm Documented by: [id number] Admin: 11/07/20 16:46 Dose: 1 gm Documented by: [id number] Admin: 11/07/20 13:53 Dose: 1 gm Documented by: [id number] Admin: 11/07/20 08:43 Dose: 1 gm Documented by: [id number] Admin: 11/06/20 20:17 Dose: 1 gm Documented by: [id number] Admin: 11/06/20 16:49 Dose: 1 gm Documented by: [id number] Admin: 11/06/20 13:15 Dose: 1 gm Documented by: [id number] Admin: 11/06/20 07:29 Dose: 1 gm Documented by: [id number] Admin: 11/05/20 19:57 Dose: 1 gm Documented by: [id number] Admin: 11/05/20 17:36 Dose: 1 gm Documented by: [id number] Admin: 11/05/20 13:56 Dose: 1 gm Documented by: [id number] Admin: 11/05/20 07:36 Dose: 1 gm Documented by: [id number] Admin: 11/04/20 21:29 Dose: 1 gm Documented by: [id number] Admin: 11/04/20 16:58 Dose: 1 gm Documented by: [id number] Admin: 11/04/20 13:19 Dose: Not Given Documented by: [id number] Admin: 11/04/20 09:12 Dose: 1 gm Documented by: [id number] Admin: 11/03/20 22:11 Dose: 1 gm Documented by: [id number] Tamsulosin HCl (Tamsulosin Hcl 0.4 Mg Cap) 0.4 mg PO [facility] Stop: 12/04/20 08:59 Last Admin: 11/09/20 08:05 Dose: 0.4 mg Documented by: [id number] Admin: 11/08/20 08:16 Dose: 0.4 mg Documented by: [id number] Admin: 11/07/20 08:43 Dose: 0.4 mg Documented by: [id number] Admin: 11/06/20 07:31 Dose: 0.4 mg Documented by: [id number] Admin: 11/05/20 08:13 Dose: 0.4 mg Documented by: [id number] Admin: 11/04/20 09:12 Dose: 0.4 mg Documented by: [id number] Thiamine HCl (Thiamine Hcl 100 Mg Tab) 100 mg PO [facility] Stop: 12/04/20 08:59 Last Admin: 11/09/20 08:06 Dose: 100 mg Documented by: [id number] Admin: 11/08/20 08:16 Dose: 100 mg Documented by: [id number] Admin: 11/07/20 08:43 Dose: 100 mg Documented by: [id number] Admin: 11/06/20 07:29 Dose: 100 mg Documented by: [id number] Admin: 11/05/20 08:14 Dose: 100 mg Documented by: [id number] Admin: 11/04/20 09:13 Dose: 100 mg Documented by: [id number] Vitamin D (Cholecalciferol 1,000 Units 25 Mcg Tab) 1,000 units PO [facility] Stop: 12/04/20 08:59 Last Admin: 11/09/20 08:06 Dose: 1,000 units Documented by: [id number] Admin: 11/08/20 08:15 Dose: 1,000 units Documented by: [id number] Admin: 11/07/20 08:45 Dose: 1,000 units Documented by: [id number] Admin: 11/06/20 07:30 Dose: 1,000 units Documented by: [id number] Admin: 11/05/20 08:13 Dose: 1,000 units Documented by: [id number] Admin: 11/04/20 09:13 Dose: 1,000 units Documented by: [id number] Zolpidem Tartrate (Zolpidem Tartrate 5 Mg Tab) 5 mg PO HS PRN PRN Reason: Sleep Stop: 12/07/20 02:32 Last Admin: 11/07/20 20:28 Dose: 5 mg Documented by: [id number] Admin: 11/07/20 03:22 Dose: 5 mg Documented by: [id number] Discontinued Medications Hydralazine HCl (Hydralazine Hcl 25 Mg Tab) 25 mg PO TID [facility] Stop: 12/04/20 17:29 Last Admin: 11/07/20 08:42 Dose: 25 mg Documented by: [id number] Admin: 11/06/20 20:17 Dose: 25 mg Documented by: [id number] Admin: 11/06/20 13:15 Dose: 25 mg Documented by: [id number] Admin: 11/06/20 07:30 Dose: 25 mg Documented by: [id number] Admin: 11/05/20 19:57 Dose: 25 mg Documented by: [id number] Admin: 11/05/20 13:56 Dose: 25 mg Documented by: [id number] Admin: 11/05/20 07:37 Dose: 25 mg Documented by: [id number] Admin: 11/04/20 21:29 Dose: 25 mg Documented by: [id number] Admin: 11/04/20 18:32 Dose: 25 mg Documented by: [id number] Admin: 11/04/20 18:32 Dose: Not Given Documented by: [id number] Hydralazine HCl (Hydralazine Hcl 20 Mg/Ml Vial) 7.5 mg IV NOW STA Stop: 11/05/20 02:18 Last Admin: 11/05/20 02:25 Dose: 7.5 mg Documented by: [id number] Sodium Chloride (Nss) 500 mls @ 999 mls/hr IV .Q31M [facility] Stop: 11/03/20 15:45 Last Infusion: 11/03/20 15:45 Dose: 0 mls/hr Documented by: [id number] Admin: 11/03/20 15:18 Dose: 999 mls/hr Documented by: [id number] Sodium Chloride (Nss 1000ml) 1,000 mls @ 125 mls/hr IV .Q8H STA Stop: 11/03/20 23:11 Last Infusion: 11/03/20 23:45 Dose: 0 mls/hr Documented by: [id number] Admin: 11/03/20 15:45 Dose: 125 mls/hr Documented by: [id number] Piperacillin Sod/Tazobactam (Sod 4.5 gm/ Dextrose) 120 mls @ 200 mls/hr IV NOW ONE; Protocol Stop: 11/04/20 17:35 Last Infusion: 11/04/20 18:02 Dose: 0 mls/hr Documented by: [id number] Admin: 11/04/20 17:00 Dose: 200 mls/hr Documented by: [id number] Piperacillin Sod/Tazobactam (Sod 4.5 gm/ Dextrose) 120 mls @ 30 mls/hr IV Q8H S ; Protocol Stop: 11/14/20 21:59 Last Infusion: 11/05/20 15:12 Dose: 0 mls/hr Documented by: [id number] Admin: 11/05/20 14:08 Dose: 30 mls/hr Documented by: [id number] Infusion: 11/05/20 09:02 Dose: 0 mls/hr Documented by: [id number] Admin: 11/05/20 05:48 Dose: 30 mls/hr Documented by: [id number] Infusion: 11/05/20 01:46 Dose: 0 mls/hr Documented by: [id number] Admin: 11/04/20 21:28 Dose: 30 mls/hr Documented by: [id number] Ioversol (Optiray 320 100ml) 93 ml IV ONCE ONE Stop: 11/05/20 11:29 Last Admin: 11/05/20 11:28 Dose: 93 ml Documented by: [id number] Lactulose (Lactulose Syrup 30 Gm/45 Ml Udp) 30 gm PO NOW STA Stop: 11/03/20 17:34 Last Admin: 11/03/20 18:05 Dose: 30 gm Documented by: [id number] Losartan Potassium (Losartan Potassium 25 Mg Tab) 25 mg PO QAM [facility] Stop: 12/04/20 08:59 Last Admin: 11/07/20 08:42 Dose: 25 mg Documented by: [id number] Admin: 11/06/20 07:31 Dose: 25 mg Documented by: [id number] Admin: 11/05/20 07:38 Dose: 25 mg Documented by: [id number] Admin: 11/04/20 09:12 Dose: 25 mg Documented by: [id number] Losartan Potassium (Losartan Potassium 25 Mg Tab) 25 mg PO NOW STA Stop: 11/07/20 12:02 Last Admin: 11/07/20 12:29 Dose: 25 mg Documented by: [id number] Description This is a 21 electrode EEG with a single channel dedicated to limited EKG. The electrodes were placed in accordance with the International 10-20 system. This EEG was done as a bedside recording is of excellent technical quality with few or no movement artifacts. Simultaneous video analysis of patient movement and behavior was attained. Photic stimulation was performed. Drowsiness and light sleep not recorded. Under these conditions during wakefulness there is evidence for a well-developed background rhythm in the alpha range of up to 10 Hz maximum frequency of 40 V maximal amplitude which is maximum and posterior head regions bilaterally symmetrical. Polymorphic mid frequency modest voltage theta activity seen over all head regions but is more prominent centrally and is symmetrical. The activity seen bifrontally. Photic stimulation provokes modest driving response but no photo myogenic or photoparoxysmal components are recorded There is no evidence for periodic sharp or slow wave complexes, spikes, sharp waves or other paroxysmal abnormalities and specifically no evidence for potent ially underlying prion disorder or a periodic subclinical seizure pattern Interpretation This is a normal EEG during wakefulness Clinical Correlation This EEG is normal revealing no evidence for focal generalized encephalopathy and no evidence for periodic sharp and slow wave complexes or seizure activity. The remote clinical considerations of a prion disorder and nonconvulsive seizure activity unless felt to be very unlikely Demetrius Grier MD
--- NOTE | 2020-11-09 10:19 | Communication Note ---
Date of Service: November 09, 2020 The EEG was finally done and is normal revealing no evidence for a generalized or focal encephalopathy and specifically no evidence for periodic sharp and slow wave complexes which might suggest an underlying prion disorder and no evidence for subclinical nonconvulsive seizure activity Because of this patient's subjective complaints of confusion of episodic type remains unestablished. He may well have an underlying cognitive impairment that has been exacerbated by some toxic metabolic issues and perhaps some of his medications. 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
--- NOTE | 2020-11-09 11:20 | Hospitalist Progress Note ---
Date of Service November 09, 2020 Assessment & Plan (1) Acute confusion: -Likely secondary to recurrent UTI with possible ESBL E. coli -Patient presenting from [facility] for evaluation of confusion -Has been having confusion for more than a month and the condition is worsening -May be due to recent addition of Tylenol with codeine -Check UDS-positive for opioid which he has been getting and others pending -CT of the head remains negative -History of ESBL UTI and the urine culture is positive for E. coli seems to be ESBL again -Started intravenous Zosyn -History of cirrhosis however does not seem to be encephalopathic on exam, ammonia is just mildly elevated -EEG has been negative for any significant disease -Neurology signed off and advised to have psychiatric evaluation and neuropsychiatric evaluation as an outpatient Acute metabolic encephalopathy Secondary to recurrent ES BL E. coli UTI Acute confusion for 1 month with dysarthria and dysphagia MRI cannot be done but CT scan of the head with contrast showed tiny lacunar infarct within the right caudate nucleus Appreciate neurology input and recommendation Will need to have outpatient neuropsychiatric evaluation Clinically much better today and does not have any significant confusion ESBL E. coli UTI Will need intravenous antibiotic for a total of 14 days Discussed with the patient about a ultrasound-guided line and possible transfer to [facility] today He declined to go as because he will not get the antibiotic as will be advised We will discussed with the physician at the facility to facilitate this process before discharge Benign essential tremor We will observe-cannot give any beta blocking or calcium channel antagonist medication for bradyarrhythmia Primidone may cause more problem with confusion and drowsiness Will observe for now (2) Bradycardia: Heart rate remains stable since he is off digoxin and Cardizem Has been put on hydralazine for blood pressure control and the heart rate seems to be maintaining Reported to have more than 3-second pause this morning Cardiology will be notified for this Discussed with the experimental welder-no further intervention at this time and the patient can be discharged on current medications No more beta-landen and/or calcium channel landen (3) Atrial fibrillation: -Found to be in slow atrial fibrillation with rates in the high 30s at times -Check dig level-normal -Hold dig and diltiazem -Cardiology consult-appreciate input and recommendation -Not anticoagulated secondary to history of GI bleeding -Status post IVC filter and watchman procedure -Not for any anticoagulation as per the experimental welder (4) Abnormal chest x-ray: -CXR shows right lung base opacities suggestive of atelectasis versus pneumonitis -No pulmonary symptoms -Afebrile, no leukocytosis -Check procalcitonin-negative (5) Diabetes mellitus, type 2: -Hgb A1c 5.3 04/2020 -Hold metformin and utilize NovoLog per protocol while hospitalized (6) Cirrhosis: -Continue lactulose (7) HTN (hypertension): -BP controlled, continue losartan -Remains on the upper side -I will start hydralazine is smaller dose -Has been on hydralazine 25 mg 3 times daily and blood pressure remains on the upper side -Has been on losartan a small dose will increase the dose of losartan and discontinue hydralazine for tachycardia -Blood pressure seems to be reasonably stable and will continue losartan with increasing dose (8) Peptic ulcer disease: -Continue PPI and sucralfate (9) COPD (chronic obstructive pulmonary disease): -No signs of acute exacerbation, continue home inhalers (10) Prostate cancer: -Receives Lupron injections (11) DVT prophylaxis: -SQ heparin We will discuss with the physician at [facility] for possible discharge on intravenous ertapenem Admission and Anticipated Discharge Date Admission Date: November 03, 2020 Subjective 11/04/2020 The patient was seen and examined in telemetry unit He was admitted with acute confusion and bradyarrhythmia Still remains confused but denies any other symptoms Denies any cardiac symptoms, any respiratory symptoms or any other neurological symptoms 11/05/2020 The patient was seen and examined in the telemetry unit He complains to have headache since this morning and has garbled speech He remains confused which has been going on for more than a month Denies any chest pain and or palpitation No fever and/or chills 11/06/2020 The patient was seen and examined in telemetry unit He is little better but is still has confusion and minimal dysphagia Denies any fever and/or chills, no chest pain and/or palpitation 11/07/2020 The patient was seen and examined in telemetry unit He remains confused and dysarthric Denies any other neurological symptoms except mild frontal headache Denies any chest pain and/or palpitation 11/08/2020 The patient was seen and examined in telemetry unit He remains confused but a little better compared with yesterday Remains dysarthric and dysphasic Noted to have a 3-second pause on monitor as per the nurse 11/09/2020 The patient was seen and examined in telemetry unit Today seems to be his best days in the hospital He seems to be less confused and complains to have some headache but no other symptoms He did not have any more pauses His EEG has been negative Review of Systems Review of Systems: All systems reviewed and are unremarkable except as noted below Neurologic: + generalized weakness and + tremor(s) (Likely intentional tremors); no abnormal speech (Dysphasia) Physical Exam Physical Exam: Lying in bed , no more acute confusion Constitutional: average body habitus; not ill appearing Eyes: PERRL, conjunctivae normal, anicteric sclerae ENMT: external ear and nose normal, oropharynx normal Neck: trachea midline, no thyromegaly Respiratory: no respiratory distress Auscultation: lungs clear to auscultation bilaterally Cardiovascular: Rate/Rhythm: + irregularly irregular Heart Sounds: no murmur Extremities: no edema Gastrointestinal (Abdomen): Inspection/Auscultation: abdomen not distended Percussion/Palpation: abdomen soft; abdomen nontender Musculoskeletal: No acute arthritis in any joint Neurologic: moves all extremities; no focal motor deficits, no meningeal signs and not confused Speech / Cognition: normal speech Motor/Sensory: + tremor (Intention tremor) Psychiatric: Mood: + depressed mood and + anxious mood Lymphatic: no cervical or axillary lymphadenopathy Results & Data Results & Data ([facility]) Vital Signs (Past 12 Hours) Vital Signs Temp Pulse Pulse Resp BP Pulse Ox 11/09/20 08:00 71 11/09/20 07:59 36.9 C 83 18 144/81 H 93 11/09/20 04:41 36.6 C 78 18 187/87 H 95 11/09/20 00:54 68 Medications Administered Current Inpatient Medications Acetaminophen (Acetaminophen 325 Mg Tab) 650 mg PO Q4H PRN PRN Reason: Pain or Fever Stop: 12/03/20 20:48 Last Admin: 11/08/20 15:24 Dose: 650 mg Documented by: Albuterol (Albut/Ipratrop 3mg/0.5mg Neb 3 Ml Vial) 3 ml NEB Q4R PRN PRN Reason: Shortness Of Breath Or Wheezing Stop: 12/03/20 20:48 Dicyclomine HCl (Dicyclomine Hcl 20 Mg Tab) 20 mg PO BID STEPHANE Stop: 12/03/20 20:59 Last Admin: 11/09/20 08:05 Dose: 20 mg Documented by: Fluticasone/Vilanterol (Fluticasone/Vilanterol 100/25mcg 14 Puffs/Inhaler) 1 puffs INH DAILY [facility] Stop: 12/04/20 08:59 Last Admin: 11/09/20 08:05 Dose: 1 puffs Documented by: Folic Acid (Folic Acid 1 Mg Tab) 1 mg PO QAM [facility] Stop: 12/04/20 08:59 Last Admin: 11/09/20 08:05 Dose: 1 mg Documented by: Heparin Sodium (Porcine) (Heparin Sod 5,000 Unit/0.5 Ml Vial) 5,000 units SQ Q8 [facility] Stop: 12/03/20 21:59 Last Admin: 11/09/20 05:15 Dose: 5,000 units Documented by: Hydralazine HCl (Hydralazine Hcl 20 Mg/Ml Vial) 5 mg IV Q6H PRN PRN Reason: Hypertension Stop: 12/05/20 00:29 Last Admin: 11/09/20 05:09 Dose: 5 mg Documented by: Ertapenem 1,000 mg/ Sodium (Chloride) 60 mls @ 100 mls/hr IV DAILY@1600 STEPHANE; Protocol Stop: 11/15/20 14:59 Last Infusion: 11/08/20 18:02 Dose: Infused Documented by: Lactulose (Lactulose Syrup 20 Gm/30 Ml Udc) 20 gm PO BID [facility] Stop: 12/03/20 21:59 Last Admin: 11/09/20 08:06 Dose: Not Given Documented by: Losartan Potassium (Losartan Potassium 50 Mg Tab) 50 mg PO QAM [facility] Stop: 12/08/20 08:59 Last Admin: 11/09/20 08:05 Dose: 50 mg Documented by: Pantoprazole Sodium (Pantoprazole 40 Mg Tab) 40 mg PO BID [facility] Stop: 12/03/20 20:59 Last Admin: 11/09/20 08:06 Dose: 40 mg Documented by: Paroxetine HCl (Paroxetine Hcl 20 Mg Tab) 30 mg PO DAILY [facility] Stop: 12/04/20 08:59 Last Admin: 11/09/20 08:05 Dose: 30 mg Documented by: Sucralfate (Sucralfate 1 Gm Tab) 1 gm PO QID [facility] Stop: 12/03/20 20:59 Last Admin: 11/09/20 08:06 Dose: 1 gm Documented by: Tamsulosin HCl (Tamsulosin Hcl 0.4 Mg Cap) 0.4 mg PO QAM [facility] Stop: 12/04/20 08:59 Last Admin: 11/09/20 08:05 Dose: 0.4 mg Documented by: Thiamine HCl (Th[facility]amine Hcl 100 Mg Tab) [facility] Stop: 12/04/20 08:59 Last Admin: 11/09/20 08:06 Dose: 100 mg Documented by: Vitamin D (Cholecalciferol 1,000 Units 25 Mcg Tab) 1,000 units PO QAM [facility] Stop: 12/04/20 08:59 Last Admin: 11/09/20 08:06 Dose: 1,000 units Documented by: Zolpidem Tartrate (Zolpidem Tartrate 5 Mg Tab) 5 mg PO HS PRN PRN Reason: Sleep Stop: 12/07/20 02:32 Last Admin: 11/07/20 20:28 Dose: 5 mg Documented by:
--- NOTE | 2020-11-09 11:54 | Cardiology Progress Note ---
Date of Service November 09, 2020 Assessment & Plan (1) Atrial fibrillation, permanent: (2) Bradycardia: (3) Mitral regurgitation: 1. Atrial fibrillation with bradycardia: no symptoms. He did have some slower heart rates at times. According to the presented fish holes who were present at the bedside he appeared to be sleeping during these episodes. Overall, I think his rate control is quite good. He was taken off of his digoxin and diltiazem. I think he can return to his unit safely. He does not require any additional rate control agents currently. With respect to anticoagulation, I will recommend he be referred for a possible watch planned procedure. 2. Hypertension: Switched to losartan from hydralazine. 3. Acute confusion: Improved 4. Mitral regurgitation: Moderate. Admission and Anticipated Discharge Date Admission Date: November 03, 2020 Subjective This morning the patient claims to have episodes of confusion although improved from admission. He has been ambulatory to the commode and did not describe episodes of dizziness or lightheadedness. Generally no symptoms of palpitation. Review of Systems Review of Systems: Per HPI Physical Exam Physical Exam: The patient is alert and oriented. Mood and affect appeared normal. He answered all questions appropriately. HEENT: Pupils are equal and reactive to light and accommodation. Extraocular movements are intact. The sclerae are anicteric. Neuro: Cranial nerves intact Lungs: normal respiratory effort Cardiac: irregularly irregular rhythm Pulses: The patient has palpable radial pulses bilaterally that are equal in intensity Extremities: There was no evidence of hypoperfusion. There is no cyanosis or clubbing. There is no edema. Skin: I did not appreciate any rashes on examination today. Results & Data ([facility]) Vital Signs (Past 12 Hours) Vital Signs Temp Pulse Pulse Resp BP Pulse Ox 11/09/20 08:00 71 11/09/20 07:59 36.9 C 83 18 144/81 H 93 11/09/20 04:41 36.6 C 78 18 187/87 H 95 11/09/20 00:54 68 PG Care Time/CCT Total # of Minutes Spent Total Time Spent with Patient: Total time spent is greater than 50% in coordination of care (as documented) at patient's floor/unit and/or counseling patient: Coding Level of Care Code 63929 Subseq Hosp Care Lvl 2 Diagnoses Atrial fibrillation, permanent I48.21 Bradycardia R00.1 Mitral regurgitation I34.0
--- NOTE | 2020-11-09 18:13 | Discharge Summary ---
Date of Service November 09, 2020 Admission HPI Per Admitting Provider 80-year-old male, inmate at [facility], with PMH prostate cancer on Lupron, DM type II, atrial fibrillation not anticoagulated secondary to history of GI bleeding, peptic ulcer disease, cirrhosis, COPD, and other problems listed below who presents to the ED from [facility] for evaluation of confusion. Patient reports he has had increased confusion over the past couple weeks. Reports that he feels he cannot focus. Reports having episodes of lightheadedness and dizziness however no syncopal event. Denies any unilateral weakness, numbness, tingling. Upon review of records from [facility], patient was started on on Tylenol with Codeine on 10/14/2020. [facility] has been receiving 2 tablets twice a day every day. Patient reports an occasional fluttering in his chest however no chest pain or shortness of breath. Reports compliance with all medications. Has been having 2-3 bowel movements per day and compliant with lactulose. Denies abdominal pain, nausea, vomiting. Reports some occasional burning with urination however none recently. Denies fevers and chills. In the ED, patient is found to be in slow atrial fibrillation with rates in the high 30s at times. BP is stable. Labs show mildly elevated ammonia at 38. Head CT negative for acute findings. Patient was given lactulose and IVF. Admission Exam Per Admitting Provider Vitals signs as noted above General Appearance:Moderately built and nourished, no apparent distress Head: normocephalic, Atraumatic Eyes: normal inspection, EOMI Neck: supple, Trachea midline Respiratory/Chest: Decreased breath sounds, Expiratory wheezes, No accessory muscle use Cardiovascular: Irregularly irregular, +Bradycardic, No murmur Abdomen/GI:Soft, Non tender, Bowel sounds present Extremities/Musculoskeletal:normal inspection, no edema Neurologic/Psych:AAOX2, grossly no focal neurological deficits Skin: normal color, warm Principal Diagnosis Acute encephalopathy-improved, ESBL UTI, bradyarrhythmia, atrial fibrillation not on any anticoagulation, depression Discharge Exam Constitutional average body habitus; not ill appearing Eyes PERRL, conjunctivae normal, anicteric sclerae ENMT external ear and nose normal, oropharynx normal Neck trachea midline, no thyromegaly Respiratory no respiratory distress Auscultation: lungs clear to auscultation bilaterally Cardiovascular Rate/Rhythm: + irregularly irregular Heart Sounds: no murmur Extremities: no edema Gastrointestinal (Abdomen) Inspection/Auscultation: abdomen not distended Percussion/Palpation: abdomen soft; abdomen nontender Neurologic moves all extremities; no focal motor deficits, no meningeal signs and not confused Speech / Cognition: normal speech Motor/Sensory: + tremor (Intention tremor) Psychiatric Mood: + depressed mood and + anxious mood Lymphatic no cervical or axillary lymphadenopathy Discharge Data Allergies Allergy/AdvReac Type Severity Reaction Status Date / Time doxazosin [From Cardura] Allergy Unknown Unknown Verified 11/03/20 15:30 prazosin [From Minipress] Allergy Unknown Unknown Verified 11/03/20 15:30 Consultations 11/03/20 18:11 ED Decision to Admit Stat 11/03/20 22:00 Consult Cardiology Routine 11/05/20 12:13 Consult Neurology Routine Ordered Studies 11/03/20 15:13 CT head/brain wo con Stat 11/05/20 10:36 CT head/brain wo/w con Urgent 11/09/20 13:22 US - OR guided needle placemen Urgent Hospital Course (1) Acute confusion: -Likely secondary to recurrent UTI with possible ESBL E. coli -Patient presenting from [facility] for evaluation of confusion -Has been having confusion for more than a month and the condition is worsening -May be due to recent addition of Tylenol with codeine -Check UDS-positive for opioid which he has been getting and others pending -CT of the head remains negative -History of ESBL UTI and the urine culture is positive for E. coli seems to be ESBL again -Started intravenous Zosyn -History of cirrhosis however does not seem to be encephalopathic on exam, ammonia is just mildly elevated -EEG has been negative for any significant disease -Neurology signed off and advised to have psychiatric evaluation and neuropsychiatric evaluation as an outpatient Acute metabolic encephalopathy Secondary to recurrent ES BL E. coli UTI Acute confusion for 1 month with dysarthria and dysphagia MRI cannot be done but CT scan of the head with contrast showed tiny lacunar infarct within the right caudate nucleus Appreciate neurology input and recommendation Will need to have outpatient neuropsychiatric evaluation Clinically much better today and does not have any significant confusion ESBL E. coli UTI Will need intravenous antibiotic for a total of 14 days Discussed with the patient about a ultrasound-guided line and possible transfer to [facility] today He declined to go as because he will not get the antibiotic as will be advised We will discussed with the physician at the facility to facilitate this process before discharge Benign essential tremor We will observe-cannot give any beta blocking or calcium channel antagonist medication for bradyarrhythmia Primidone may cause more problem with confusion and drowsiness Will observe for now (2) Bradycardia: Heart rate remains stable since he is off digoxin and Cardizem Has been put on hydralazine for blood pressure control and the heart rate seems to be maintaining Reported to have more than 3-second pause this morning Cardiology will be notified for this Discussed with the room service runner-no further intervention at this time and the patient can be discharged on current medications No more beta-landen and/or calcium channel landen (3) Atrial fibrillation: -Found to be in slow atrial fibrillation with rates in the high 30s at times -Check dig level-normal -Hold dig and diltiazem -Cardiology consult-appreciate input and recommendation -Not anticoagulated secondary to history of GI bleeding -Status post IVC filter and watchman procedure -Not for any anticoagulation as per the room service runner (4) Abnormal chest x-ray: -CXR shows right lung base opacities suggestive of atelectasis versus pn eumonitis -No pulmonary symptoms -Afebrile, no leukocytosis -Check procalcitonin-negative (5) Diabetes mellitus, type 2: -Hgb A1c 5.3 04/2020 -Hold metformin and utilize NovoLog per protocol while hospitalized (6) Cirrhosis: -Continue lactulose (7) HTN (hypertension): -BP controlled, continue losartan -Remains on the upper side -I will start hydralazine is smaller dose -Has been on hydralazine 25 mg 3 times daily and blood pressure remains on the upper side -Has been on losartan a small dose will increase the dose of losartan and discontinue hydralazine for tachycardia -Blood pressure seems to be reasonably stable and will continue losartan with increasing dose (8) Peptic ulcer disease: -Continue PPI and sucralfate (9) COPD (chronic obstructive pulmonary disease): -No signs of acute exacerbation, continue home inhalers (10) Prostate cancer: -Receives Lupron injections (11) DVT prophylaxis: -SQ heparin We will discuss with the physician at [facility] for possible discharge on intravenous ertapenem Total Time Total Time Spent Total Time Spent (In Minutes): 40 minutes Total Time Includes: Examination of the Patient, Discharge Planning, Medication Reconciliation and Communication With Other Providers Discharge Plan Discharge Items [facility]position[facility] Reason For Visit: BRADYCARDIA Discharge Diagnosis: Acute encephalopathy-improved, ESBL UTI, bradyarrhythmia, atrial fibrillation not on any anticoagulation, depression Condition on Discharge: Good Activity: Resume your previous activity Non-emergency contact: Primary Care Provider Call non-emergency contact if: you have any medication questions and your symptoms worsen Follow-up/Referrals: Cortez BOND [Primary Care Provider] - Diet: Heart Healthy Addtl Attending Provider Instructions: Will need to finish intravenous antibiotic for 8 more days This was discussed in detail with the provider at the [facility] Your digoxin and diltiazem have been stopped and losartan has been increased to 50 mg once a day. We will need to have an outpatient neuropsychiatric evaluation if cognitive impairment persist as per the neurologist Pending Studies at Discharge: No Stand-Alone Forms: My [facility] Skilled Items Patient informed of condition?: Yes Discharge Level of Care: Other Communicable Disease: No Discharge Prognosis: Stable Lines: US Guided Peripheral IV Urinary Catheter: No Medications and DC Order Prescriptions: New ertapenem 1 gram recon soln 1 g IV DAILY 8 Days RF: 0 Continued sucralfate [Carafate] 1 gram tablet 1 g PO QID RF: 0 Eligard (3 month) 22.5 mg syringe 22.5 mg subcut UD RF: 0 tamsulosin 0.4 mg Capsule 0.4 mg PO QAM RF: 0 cholecalciferol (vitamin D3) [Vitamin D3] 25 mcg (1,000 unit) Capsule 25 mcg PO QAM RF: 0 Gaviscon Extra Strength 160-105 mg Tablet,Chewable 1 tab PO QID PRN (Reason: Stomach Upset) RF: 0 thiamine mononitrate (vit B1) 100 mg Tablet 100 mg PO QAM RF: 0 folic acid 1 mg Tablet 1 mg PO QAM RF: 0 metformin 500 mg Tablet 500 mg PO HS RF: 0 nitroglycerin [Nitrostat] 0.4 mg Tablet, Sublingual 0.4 mg Sublingual UD PRN (Reason: Chest Pain) RF: 0 lactulose 10 gram/15 mL Solution 30 ml PO BID RF: 0 acetaminophen-codeine 300-30 mg Tablet 2 tab PO BID PRN (Reason: Pain) RF: 0 fluticasone propion-salmeterol [Wixela Inhub] 100-50 mcg/dose Blister With Device 1 inh INHALATION BID RF: 0 pantoprazole 40 mg Tablet,Delayed Release (Dr/Ec) 40 mg PO BID 56 Days Qty: 112 RF: 0 dicyclomine 20 mg Tablet 20 mg PO BID RF: 0 paroxetine HCl 30 mg Tablet 30 mg PO DAILY RF: 0 Changed losartan 25 mg Tablet 50 mg PO QAM Qty: 0 RF: 0 Discontinued diltiazem HCl 180 mg Capsule,Extended Release 24hr 180 mg PO QAM RF: 0 digoxin 250 mcg (0.25 mg) Tablet 250 mcg PO QAM RF: 0 Discharge Orders: Discharge Order (Routine); Ordered 11/09/20 Ordered By: Dilip Munoz Admission Data Admit Date/Time: 11/03/20 18:50 Attending Provider: Dilip Munoz Admit Provider: Sen Potter Primary Care Provider: Cortez BOND Other Providers: Sen Potter ; Luis Eduardo Dunn ; Parvin Shahid ; Demetrius Grier ; Parvin Nunez ; Kenneth Joaquin Other Interventions: Discharge Summary Assessment (RN) Last Done: 11/09/20 14:59
== END 2020-11-09 16:27 | DRG 71 ==
LOC: ED 14:23 → 2S 18:50 → SUATTDRO 18:50 → 2S 20:16 → 2E 11-05 14:44

== ENCOUNTER 2021-05-06 09:19 | Inpatient (IN) ==
[2021-05-06] MEDS ORDERED: VANCOMYCIN CONSULT ACTIVE PRN (09:26)
[2021-05-06] MEDS ORDERED: VANCOMYCIN HCL 2,000 MG in SODIUM CHLORIDE 0.9% 500 ML IV ONE (09:26)
[2021-05-06] MEDS ORDERED: CEFEPIME 2,000 MG/20 ML VIAL IV STA (09:26)
[2021-05-06] MEDS ORDERED: ERTAPENEM SODIUM 10 ML IV STA (10:04)
[2021-05-06 10:10] LABS: Basophils # (auto) 0.04 K/uL (0-0.2); Basophils % (auto) 0.2 %; Eosinophils # (auto) 0.03 K/uL (0-0.5); Eosinophils % (auto) 0.2 %; Hematocrit (blood only) 34.4 % (42-52); Hemoglobin 11.1 g/dL (14.0-18.0); Immature Granulocytes # (auto) 0.03 K/uL (0.00-0.02); Immature Granulocytes % (auto) 0.2 %; Lymphocytes # (auto) 1.41 K/uL (1.2-3.4); Lymphocytes % (auto) 8.5 %; Mean Corpuscular Hgb Conc 32.3 g/dL (32-36); Mean Corpuscular Volume 105.5 fL (80-100); Mean Platelet Volume 10.7 fL (7.4-10.4); Monocytes # (auto) 0.39 K/uL (0.11-0.59); Monocytes % (auto) 2.3 %; Neutrophils # (auto) 14.77 K/uL (1.4-6.5); Neutrophils % (auto) 88.6 %; Platelet Count 149 K/uL (130-400); RDW Coefficient of Variation 17.1 % (11.5-14.5); RDW Standard Deviation 65.7 fL (36.4-46.3); Red Blood Count 3.26 M/uL (4.7-6.1); White Blood Count 16.67 K/uL (4.8-10.8)
[2021-05-06 10:20] LABS: INR 1.1 (0.9-1.1); Partial Thromboplastin Time 27.3 Seconds (21.0-31.0); Prothrombin Time 11.2 Seconds (9.0-12.0)
--- NOTE | 2021-05-06 10:23 | XRay Report ---
XR chest 1V portable CLINICAL HISTORY: Sepsis. COMPARISON STUDY: Chest radiograph November 03, 2020. FINDINGS: There is no pneumothorax. Small left pleural effusion is suspected. Extensive left lung air space opacity has developed. There is diffuse interstitial thickening. Cardiomegaly is unchanged. IMPRESSION: 1. Interval development of extensive left lung airspace opacity which favors pneumonia. Radiographic follow-up to ensure resolution is recommended. 2. Diffuse interstitial thickening which may reflect pulmonary edema. 3. Small left pleural effusion. ACT 112: Negative or not required by law. Electronically signed by: Jeremy Garibay M.D. 05/06/2021 10:21 AM
[2021-05-06 10:28] LABS: Albumin Level 2.9 gm/dl (3.4-5.0); BUN Creatinine Ratio 19.2 (10-20); Calcium 9.3 mg/dl (8.5-10.1); Creatinine Clr Calc Pharmacy 73.4 ml/min; Est GFR (African American) 93.2 ml/min; Est GFR (Non-African American) 80.4 ml/min
--- NOTE | 2021-05-06 10:31 | Electrocardiogram Report ---
Test Reason : Blood Pressure : / mmHG Vent. Rate : 110 BPM Atrial Rate : 375 BPM P-R Int : 000 ms QRS Dur : 120 ms QT Int : 360 ms P-R-T Axes : 000 -55 111 degrees QTc Int : 487 ms Atrial flutter with variable A-V block Left anterior fascicular block Left ventricular hypertrophy with QRS widening and repolarization abnormality Abnormal ECG When compared with ECG of 05-NOV-2020 05:45, Atrial flutter has replaced Atrial fibrillation Vent. rate has increased BY 42 BPM Minimal criteria for Anterior infarct are no longer Present T wave inversion less evident in Lateral leads Confirmed by Luis Eduardo Dunn ([id number]) on 05/06/2021 10:30:50 AM Referred By: [place] Confirmed By:Luis Eduardo Dunn
[2021-05-06 10:42] LABS: Albumin Globulin Ratio 0.8 (0.9-2); Globulin 3.7 gm/dl (2.5-4.0); Total Protein 6.6 gm/dl (6.4-8.2); Troponin I 0.05 ng/ml (0-0.045)
[2021-05-06 10:48] LABS: Influenza A virus by PCR Negative (Neg); Influenza B virus by PCR Negative (Neg); RSV by PCR Negative (Neg); SARS CoV2 RNA(COVID-19) InHosp NEGATIVE (Negative)
--- NOTE | 2021-05-06 11:05 | Emergency Department Note ---
History of Present Illness General Chief complaint: Shortness of Breath/Dyspnea Stated complaint: SOB Time Seen by Provider: 05/06/21 09:21 History of Present Illness [id number] male presents to the ED with a chief complaint of shortness of breath. His symptoms started last night. He had oxygen saturations of 70% in the on room air. His saturations on 10 L was 88%. The patient does not use home oxygen. He has had a productive cough for the past couple of days. EMS gave her nitroglycerin because of high blood pressure. He also given DuoNeb treatment. Patient is on no to provide any additional information as the patient is having some respiratory difficulty on BiPAP. Home Medications Medication Instructions Recorded Confirmed Type lactulose 10 gram/15 mL oral 30 ml PO BID 06/12/18 05/06/21 History solution nitroglycerin 0.4 mg sublingual 0.4 mg SUBLINGUAL UD PRN 06/12/18 05/06/21 History tablet (Nitrostat) tamsulosin 0.4 mg capsule 0.4 mg PO QAM 02/06/19 05/06/21 History acetaminophen 300 mg-codeine 30 mg 2 tab PO BID PRN 05/08/20 05/06/21 History tablet fluticasone 100 mcg-salmeterol 50 1 inh INHALATION BID 05/08/20 05/06/21 History mcg/dose blistr powdr for inhalation (Wixela Inhub) pantoprazole 40 mg tablet,delayed 40 mg PO BID 56 Days #112 tab 05/11/20 05/06/21 Rx release dicyclomine 20 mg tablet 20 mg PO BID 05/22/20 05/06/21 History aluminum hydrox-magnesium carb 160 1 tab PO QID PRN 07/09/20 05/06/21 History mg-105 mg chewable tablet (Gaviscon Extra Strength) leuprolide (3 month) 22.5 mg (3 22.5 mg SUBCUT UD ea 09/21/20 05/06/21 History month) subcutaneous syringe (Eligard) paroxetine HCl 30 mg tablet 30 mg PO QAM 11/03/20 05/06/21 History apixaban 5 mg tablet (Eliquis) 5 mg PO BID 03/30/21 05/06/21 History celecoxib 100 mg capsule (Celebrex) 100 mg PO QAM cap 03/30/21 05/06/21 History furosemide 20 mg tablet 20 mg PO QAM 03/30/21 05/06/21 History levalbuterol tartrate 45 2 puff INHALATION QID PRN g 03/30/21 05/06/21 History mcg/actuation aerosol inhaler (Xopenex HFA) duloxetine 30 mg capsule,delayed 30 mg PO HS 05/06/21 05/06/21 History release lidocaine-prilocaine 2.5 %-2.5 % 1 applic TOPICAL TID 05/06/21 05/06/21 History topical cream losartan 100 mg tablet 100 mg PO QAM 05/06/21 05/06/21 History paroxetine HCl 20 mg tablet (Paxil) 20 mg PO QAM 05/06/21 05/06/21 History Allergies Allergy/AdvReac Type Severity Reaction Status Date / Time doxazosin [From Cardura] Allergy Unknown Unknown Verified 05/06/21 10:14 prazosin [From Minipress] Allergy Unknown Unknown Verified 05/06/21 10:14 Past Med/Surg History Medical History Allergic rhinitis Anemia S/p transfusion 05/2020 per records - secondary to GI bleed Anxiety Atrial fibrillation No longer on Coumadin (per records - no AC secondary to thrombocytopenia related to cirrhosis and bleeding risk secondary to falls) Bone lesion Metastasis from prostate cancer -pt currently declining treatment BPH (benign prostatic hyperplasia) Chronic back pain Chronic pulmonary embolism Dx'ed [address] Cirrhosis On Lactulose and Xifaxan COPD (chronic obstructive pulmonary disease) COVID-19 virus infection Tested Covid positive 07/09/20= pt admitted to [facility]- discharged 07/13/20 Depressive disorder DVT (deep venous thrombosis) Dx'ed 2018- not a candidate for AC GERD (gastroesophageal reflux disease) H/O: CVA (cerebrovascular accident) SCI states it has been several years ago Per records (12/10/17 cardio consult)- "suspected in October 2017" HTN (hypertension) Mitral regurgitation Peptic ulcer disease 05/2020 bleeding ulcer from Toradol treatment for pain from gallbladder and bone pain- was transferred to [facility] 05/22/20 due to uncontrolled GI bleeding Portal hypertension Presence of IVC filter Prostate cancer SCI emily states that he is refusing treatment for the prostate cancer and it has mets to bone and has alot of pain. Sciatica Tremor Surgical History H/O right knee surgery History of appendectomy History of cataract surgery left. 12/2018. 2mg versed. History of cataract surgery Hx of esophagogastroduodenoscopy at least 2---recently 08/06/2020 GI bleed 05/2020 - was lifeflighted to 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 current occupational status: unemployed Feels Safe at Home: Yes caffeine: Yes (2 cups/day) during the past year weight has: remained stable Assistive Devices: None Review of Systems A total of 10 systems reviewed and were otherwise negative Physical Exam Vital Signs Vital Signs - 24 hr 05/06/21 09:25 05/06/21 09:49 Temperature 36.7 C Temperature Source Oral Pulse Rate 104 H 124 H Respiratory Rate 32 H 24 Respiratory Effort / Characteristics Spontaneous Non-Labored Spontaneous Respiratory Depth Normal Respiratory Pattern Tachypnea Blood Pressure 127/76 Blood Pressure Mean 93 Blood Pressure Position Sitting Pulse Oximetry 96 93 Oxygen Delivery Method CPAP Fraction of Inspired Oxygen 40 Sepsis Recent Fever Within 48 Hours No Sepsis New/Unexplained Change in Mental Status N/A Sepsis Action Taken by Nursing Physician Notified CONSTITUTIONAL/VITAL SIGNS: Reviewed / noted above. GENERAL: Patient appears to be acutely ill. He is somewhat lethargic and drowsy INTEGUMENTARY: Warm, dry, and [place]. HEAD: Normocephalic. EYES: without scleral icterus or trauma. ENT/OROPHARYNX: clear and moist. LYMPHADENOPATHY/NECK: Is supple without lymphadenopathy or meningismus. RESPIRATORY: Diminished breath sounds bilaterally with coarse lung sounds left greater than right. Mild to moderate increased work of breathing. CARDIOVASCULAR: Regular rate and rhythm. GI/ABDOMEN: Soft and nontender. No organomegaly or pulsatile mass. EXTREMITIES: Bilateral edema with right greater than left. NEUROLOGICAL: Patient seems to be drowsy. He is also weak. PSYCHIATRIC: normal affect. MUSCULOSKELETAL: Normally developed with good muscle tone. TRIAGE NURSING DOCUMENTATION REVIEWED. Procedures ABG Interpretation ABG Interpretation 1: ABG Results: pH is 7.4/PCO2 40/PO2 75 on BiPAP. This represents a normal acid-base status with adequate oxygenation and ventilation on BiPAP. Course Administered Medications Vancomycin HCl 2,000 mg/ (Sodium Chloride) 540 mls @ 200 mls/hr IV NOW ONE Stop: 05/06/21 11:55 Last Admin: 05/06/21 10:12 Dose: 200 mls/hr Documented by: [id number] Discontinued Medications Ertapenem (Invanz) 10 mls @ 2 mls/min IV NOW STA Stop: 05/06/21 10:08 Last Admin: 05/06/21 10:11 Dose: 2 mls/min Documented by: [id number] Critical Care Time Critical Care Time: Yes Total Critical Care Time: 40 I have personally spent 40 minutes of critical care time in the direct management of this patient. This includes bedside care, interpretation of diagnostic studies, and testing, discussion with consultants, patient, and family members, and other required patient management activities. This 40 minutes is in excess of all separately billable procedures. Medical Decision Making Differential Diagnosis Differential includes acute coronary syndrome, myocardial infarction, CVA, TIA, anemia, infection, pneumonia, UTI, pyelonephritis, poor nutrition, dehydration, electrolyte disturbance,hypoglycemia. Medical Records Attestation: I reviewed the patient's medical records. Home Medications Current Medication List: was personally reviewed by me Laboratory Data Attestation: I reviewed the patient's lab results. Result diagrams: 05/06/21 09:57 05/06/21 09:57 Lab Results 05/06/21 05/06/21 05/06/21 Range/Units 09:57 09:57 09:57 WBC 16.67 H (4.8-10.8) K/uL RBC 3.26 L (4.7-6.1) M/uL Hgb 11.1 L (14.0-18.0) g/dL Hct 34.4 L (42-52) % MCV 105.5 H (80-100) fL MCH 34.0 (25-34) pg MCHC 32.3 (32-36) g/dL RDW Std Deviation 65.7 H (36.4-46.3) fL RDW Coeff of Charo 17.1 H (11.5-14.5) % Plt Count 149 (130-400) K/uL MPV 10.7 H (7.4-10.4) fL Immature Gran % (Auto) 0.2 % Neut % (Auto) 88.6 % Lymph % (Auto) 8.5 % [place] % (Auto) 2.3 % Eos % (Auto) 0.2 % Baso % (Auto) 0.2 % Neut # (Auto) 14.77 H (1.4-6.5) K/uL Lymph # (Auto) 1.41 (1.2-3.4) K/uL [place] # (Auto) 0.39 (0.11-0.59) K/uL Eos # (Auto) 0.03 (0-0.5) K/uL Baso # (Auto) 0.04 (0-0.2) K/uL Immature Gran # (Auto) 0.03 H (0.00-0.02) K/uL PT 11.2 (9.0-12.0) Seconds INR 1.1 (0.9-1.1) APTT 27.3 (21.0-31.0) Seconds PTT Ratio 1.0 Sodium 139 (136-145) mmol/L Potassium 4.0 (3.5-5.1) mmol/L Chloride 109 H (98-107) mmol/L Carbon Dioxide 26 (21-32) mmol/L Anion Gap 4.0 (3-11) BUN 17 (7-18) mg/dl Creatinine 0.91 (0.6-1.4) mg/dl Est Cr Clr Drug Dosing 73.4 ml/min Est GFR ( Amer) 93.2 ml/min Est GFR (Non-Af Amer) 80.4 ml/min BUN/Creatinine Ratio 19.2 (10-20) Glucose 124 H (70-99) mg/dl Lactate (0.4-2.0) mmol/L Calcium 9.3 (8.5-10.1) mg/dl Magnesium 2.0 (1.8-2.4) mg/dl Total Bilirubin 2.0 H (0.2-1) mg/dl AST 27 (15-37) U/L ALT 20 (12-78) Alkaline Phosphatase 99 (45-117) U/L Troponin I 0.050 H* (0-0.045) ng/ml Total Protein 6.6 (6.4-8.2) gm/dl Albumin 2.9 L (3.4-5.0) gm/dl Globulin 3.7 (2.5-4.0) gm/dl Albumin/Globulin Ratio 0.8 L (0.9-2) Procalcitonin (0-0.5) ng/ml SARS-CoV-2 (PCR) (Negative) Influenza Type A (PCR) (Neg) Influenza Type B (PCR) (Neg) RSV (RT-PCR) (Neg) 05/06/21 05/06/21 05/06/21 Range/Units 09:57 09:57 09:57 WBC (4.8-10.8) K/uL RBC (4.7-6.1) M/uL Hgb (14.0-18.0) g/dL Hct (42-52) % MCV (80-100) fL MCH (25-34) pg MCHC (32-36) g/dL RDW Std Deviation (36.4-46.3) fL RDW Coeff of Charo (11.5-14.5) % Plt Count (130-400) K/uL MPV (7.4-10.4) fL Immature Gran % (Auto) % Neut % (Auto) % Lymph % (Auto) % [place] % (Auto) % Eos % (Auto) % Baso % (Auto) % Neut # (Auto) (1.4-6.5) K/uL Lymph # (Auto) (1.2-3.4) K/uL [place] # (Auto) (0.11-0.59) K/uL Eos # (Auto) (0-0.5) K/uL Baso # (Auto) (0-0.2) K/uL Immature Gran # (Auto) (0.00-0.02) K/uL PT (9.0-12.0) Seconds INR (0.9-1.1) APTT (21.0-31.0) Seconds PTT Ratio Sodium (136-145) mmol/L Potassium (3.5-5.1) mmol/L Chloride (98-107) mmol/L Carbon Dioxide (21-32) mmol/L Anion Gap (3-11) BUN (7-18) mg/dl Creatinine (0.6-1.4) mg/dl Est Cr Clr Drug Dosing ml/min Est GFR ( Amer) ml/min Est GFR (Non-Af Amer) ml/min BUN/Creatinine Ratio (10-20) Glucose (70-99) mg/dl Lactate 1.9 (0.4-2.0) mmol/L Calcium (8.5-10.1) mg/dl Magnesium (1.8-2.4) mg/dl Total Bilirubin (0.2-1) mg/dl AST (15-37) U/L ALT (12-78) Alkaline Phosphatase (45-117) U/L Troponin I (0-0.045) ng/ml Total Protein (6.4-8.2) gm/dl Albumin (3.4-5.0) gm/dl Globulin (2.5-4.0) gm/dl Albumin/Globulin Ratio (0.9-2) Procalcitonin 0.51 H (0-0.5) ng/ml SARS-CoV-2 (PCR) NEGATIVE (Negative) Influenza Type A (PCR) Negative (Neg) Influenza Type B (PCR) Negative (Neg) RSV (RT-PCR) Negative (Neg) Imaging Data Radiologist's Impression: Chest X-Ray 05/06/21 09:26 XR chest 1V portable CLINICAL HISTORY: Sepsis. COMPARISON STUDY: Chest radiograph November 03, 2020. FINDINGS: There is no pneumothorax. Small left pleural effusion is suspected. Extensive left lung airspace opacity has developed. There is diffuse interstitial thickening. Cardiomegaly is unchanged. IMPRESSION: 1. Interval development of extensive left lung airspace opacity which favors pneumonia. Radiographic follow-up to ensure resolution is recommended. 2. Diffuse interstitial thickening which may reflect pulmonary edema. 3. Small left pleural effusion. ACT 112: Negative or not required by law. Electronically signed by: Jeremy Garibay M.D. 05/06/2021 10:21 AM ECG Data Attestation: I personally reviewed and interpreted this ECG as follows: Additional Comments: Twelve-lead EKG: Per my interpretation shows a flutter at a rate of 110. T wave inversions laterally. No ST elevation. No PVCs. Normal QTC. MDM Narrative Patient presents to the ED with shortness of breath with sats of 70% on room air and 88% on 10 L. He came in on BiPAP. He has had a productive cough. His chest x-ray suggest a left lung pneumonia. His white blood cell count is 16,000. His hemoglobin is 11.1. His chemistry panel was unremarkable. Troponin is mildly elevated 0.05. Procalcitonin level is 0.51. Covid flu and RSV are negative. Patient was treated with IV ertapenem empirically as the patient has had ESBL in the urine previously. He was also given IV vancomycin. The patient's ABG appears to look normal on BiPAP. He is not hypercarbic. The patient will need further inpatient evaluation and care by the hospitalist. Impression & Plan Left lower lobe pneumonia, Hypoxia Discharge Plan Visit Data Chief Complaint: Shortness of Breath/Dyspnea Stated Complaint: SOB ED Provider: Dennis Hernandez Discharge Problem: Left lower lobe pneumonia, Hypoxia Patient Disposition: Being Evaluated by Hospitalist Forms Stand Alone Forms: My [facility] Prescriptions Prescriptions: No Action Eligard (3 month) 22.5 mg syringe 22.5 mg subcut UD RF: 0 furosemide 20 mg tablet 20 mg PO QAM RF: 0 levalbuterol tartrate [Xopenex HFA] 45 mcg/actuation HFA aerosol inhaler 2 puff inhalation QID PRN (Reason: Shortness Of Breath) RF: 0 celecoxib [Celebrex] 100 mg capsule 100 mg PO QAM RF: 0 Eliquis 5 mg tablet 5 mg PO BID RF: 0 tamsulosin 0.4 mg Capsule 0.4 mg PO QAM RF: 0 Gaviscon Extra Strength 160-105 mg Tablet,Chewable 1 tab PO QID PRN (Reason: Stomach Upset) RF: 0 nitroglycerin [Nitrostat] 0.4 mg Tablet, Sublingual 0.4 mg Sublingual UD PRN (Reason: Chest Pain) RF: 0 lactulose 10 gram/15 mL Solution 30 ml PO BID RF: 0 acetaminophen-codeine 300-30 mg Tablet 2 tab PO BID PRN (Reason: Pain) RF: 0 fluticasone propion-salmeterol [Wixela Inhub] 100-50 mcg/dose Blister With Device 1 inh INHALATION BID RF: 0 pantoprazole 40 mg Tablet,Delayed Release (Dr/Ec) 40 mg PO BID 56 Days Qty: 112 RF: 0 dicyclomine 20 mg Tablet 20 mg PO BID RF: 0 paroxetine HCl 30 mg Tablet 30 mg PO QAM RF: 0 lidocaine-prilocaine [Emla] 2.5-2.5 % Cream 1 applic topical TID RF: 0 paroxetine HCl [Paxil] 20 mg Tablet 20 mg PO QAM RF: 0 losartan 100 mg Tablet 100 mg PO QAM RF: 0 duloxetine 30 mg Capsule,Delayed Release(Dr/Ec) 30 mg PO HS RF: 0 Referrals Referrals: Emily BOND [Primary Care Provider] -
--- NOTE | 2021-05-06 12:09 | History & Physical Report ---
Date of Service May 06, 2021 Assessment & Plan (1) Acute respiratory failure: (2) Left lower lobe pneumonia: Plan: Patient is 80-year-old male with PMH atrial fibrillation on Eliquis, peptic ulcer disease, h/o GI bleed, COPD, HTN, h/o DVT/PE s/p IVC, cirrhosis, mitral regurgitation, h/o prostate CA, presented to ER with c/o respiratory distress today. Reported pulse ox of 57% on RA and was placed pt on 10L non-breather by EMS and up to 93% and was transported to ER. Unknown if pt had fever/chills, cough, CP. In ER pt afebrile, P: 124, R: 24, BP 127/76, was placed on BiPAP with sats 93%. WBC: 16, lactate: 1.9, procalcitonin: 0.5. Negative COVID-19 PCR, negative influenza PCR, negative RSV PCR. POC ABG: pH: 7.4, pCO2: 40, PO2: 75, HCO3: 25.8. CXR: Left lung opacity. In ER was given ertapenem and vancomycin Blood culture pending Obtain MRSA swab, sputum culture Zosyn, vancomycin Continue BiPAP DuoNeb Gentle IVF CBC, BMP in a.m. (3) Elevated troponin: Plan: Troponin: 0.5. EKG atrial flutter, left anterior fascicular block, LVH, T wave inversion lateral leads (less than prior EKG) Probable secondary to demand ischemia (4) Atrial fibrillation, permanent: Plan: On Eliquis Current tachycardia Patient previously not on beta-landen or calcium channel landen secondary to bradycardia Will start Lopressor 25 mg twice daily Continue Eliquis (5) Lower extremity edema: Plan: Patient with reported chronic BLE edema Today right lower extremity slightly greater than left and has some erythema Obtain Doppler to rule out DVT (6) COPD (chronic obstructive pulmonary disease): Plan: Continue home inhaler Duo nebs (7) HTN (hypertension): Plan: Continue losartan with holding parameters (8) History of DVT (deep vein thrombosis): Plan: H/O PE. S/P IVC Filter (9) Peptic ulcer disease: Plan: Continue PPI (10) Prostate cancer: Plan: Was previously on Lupron. It is reported pt doesn't want to take any more. Unsure when last dose Continue tamsulosin DVT Prophylaxis -Eliquis Full Code as per previous admissions Patient currently incarcerated at [facility] Emily Pt was seen and care coordinated with Dr Munoz. See addendum History of Present Illness Chief Complaint: Respiratory distress Primary Care Provider: [facility] Emily Patient is 80-year-old male with PMH atrial fibrillation on Eliquis, peptic ulcer disease, h/o GI bleed, COPD, HTN, h/o DVT/PE s/p IVC, cirrhosis, mitral regurgitation, h/o prostate CA, presented to ER with c/o respiratory distress. History is obtained from [facility] staff secondary to pt's current state. It is reported today pt was found to be in respiratory distress, 57% on RA pulse ox. EMS placed pt on 10L non-breather and up to 93% and was transported to ER. [facility] staff does not know if pt has had any fever/chills, cough or any recent complaints of SOB or chest pain. In ER pt afebrile, P: 124, R: 24, BP 127/76, was placed on BiPAP with sats 93%. WBC: 16, lactate: 1.9, procalcitonin: 0.5. Negative COVID-19 PCR, negative influenza PCR, negative RSV PCR. POC ABG: pH: 7.4, pCO2: 40, PO2: 75, HCO3: 25.8. CXR: Left lung opacity. In ER was given ertapenem and vancomycin Allergies Allergy/AdvReac Type Severity Reaction Status Date / Time doxazosin [From Cardura] Allergy Unknown Unknown Verified 05/06/21 10:14 prazosin [From Minipress] Allergy Unknown Unknown Verified 05/06/21 10:14 Home Medications Medication Instructions Recorded Confirmed Type lactulose 10 gram/15 mL oral 30 ml PO BID 06/12/18 05/06/21 History solution nitroglycerin 0.4 mg sublingual 0.4 mg SUBLINGUAL UD PRN 06/12/18 05/06/21 History tablet (Nitrostat) tamsulosin 0.4 mg capsule 0.4 mg PO QAM 02/06/19 05/06/21 History acetaminophen 300 mg-codeine 30 mg 2 tab PO BID PRN 05/08/20 05/06/21 History tablet fluticasone 100 mcg-salmeterol 50 1 inh INHALATION BID 05/08/20 05/06/21 History mcg/dose blistr powdr for inhalation (Wixela Inhub) pantoprazole 40 mg tablet,delayed 40 mg PO BID 56 Days #112 tab 05/11/20 05/06/21 Rx release dicyclomine 20 mg tablet 20 mg PO BID 05/22/20 05/06/21 History aluminum hydrox-magnesium carb 160 1 tab PO QID PRN 07/09/20 05/06/21 History mg-105 mg chewable tablet (Gaviscon Extra Strength) apixaban 5 mg tablet (Eliquis) 5 mg PO BID 03/30/21 05/06/21 History celecoxib 100 mg capsule (Celebrex) 100 mg PO QAM cap 03/30/21 05/06/21 History furosemide 20 mg tablet 20 mg PO QAM 03/30/21 05/06/21 History levalbuterol tartrate 45 2 puff INHALATION QID PRN g 03/30/21 05/06/21 History mcg/actuation aerosol inhaler (Xopenex HFA) duloxetine 30 mg capsule,delayed 30 mg PO HS 05/06/21 05/06/21 History release leuprolide (3 month) 22.5 mg (3 22.5 mg SUBCUT Q3M 05/06/21 05/06/21 History month) subcutaneous syringe (Deanslist) lidocaine-prilocaine 2.5 %-2.5 % 1 applic TOPICAL TID 05/06/21 05/06/21 History topical cream losartan 100 mg tablet 100 mg PO QAM 05/06/21 05/06/21 History paroxetine HCl 20 mg tablet (Paxil) 20 mg PO QAM 05/06/21 05/06/21 History Past Med/Surg History Medical History Allergic rhinitis Anemia S/p transfusion 05/2020 per records - secondary to GI bleed Anxiety Atrial fibrillation No longer on Coumadin (per records - no AC secondary to thrombocytopenia related to cirrhosis and bleeding risk secondary to falls) Bone lesion Metastasis from prostate cancer -pt currently declining treatment BPH (benign prostatic hyperplasia) Chronic back pain Chronic pulmonary embolism Dx'ed [address] Cirrhosis On Lactulose and Xifaxan COPD (chronic obstructive pulmonary disease) COVID-19 virus infection Tested Covid positive 07/09/20= pt admitted to [facility]- discharged 07/13/20 Depressive disorder DVT (deep venous thrombosis) Dx'ed 2017- not a candidate for AC GERD (gastroesophageal reflux disease) H/O: CVA (cerebrovascular accident) [facility] states it has been several years ago Per records (12/10/17 cardio consult)- "suspected in October 2017" HTN (hypertension) Mitral regurgitation Peptic ulcer disease 05/2020 bleeding ulcer from Toradol treatment for pain from gallbladder and bone pain- was transferred to [facility] 05/22/20 due to uncontrolled GI bleeding Portal hypertension Presence of IVC filter Prostate cancer [facility] emily states that he is refusing treatment for the prostate cancer and it has mets to bone and has alot of pain. Sciatica Tremor Surgical History H/O right knee surgery History of appendectomy History of cataract surgery left. 12/2018. 2mg versed. 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 current occupational status: unemployed Feels Safe at Home: Yes caffeine: Yes (2 cups/day) during the past year weight has: remained stable Assistive Devices: None Review of Systems Review of Systems: Unobtainable due to cognitive status Physical Exam Physical Exam: General: Ill appearing elderly male, WDWN, currently on bipap Head: normocephalic, atraumatic Eyes: PERRL, EOM's intact, conjunctiva non-injected, anicteric ENT: normal inspection external ears, nose, mucous membranes dry Neck: supple, trachea midline Lungs: On bipap, sat 93%, +rhonchi CV: irregularly irregular, rate 104, + murmur, + 2+ pretibial edema, right greater than left Abd: normal BS, soft, no apparent tenderness to palpation Ext: no cyanosis, right lower leg with mild erythema Neuro: lethargic, drowsy, not responding to verbal stimuli Skin: warm, dry Results & Data Results & Data ([facility]) Vital Signs (Past 12 Hours) Vital Signs Temp Pulse Pulse Resp BP BP Pulse Ox 05/06/21 11:50 101 H 96 H 24 116/83 98 05/06/21 09:49 36.7 C 124 H 24 127/76 93 05/06/21 09:25 104 H 32 H 96 Laboratory Results Short CBC 05/06/21 05/06/21 Range/Units 09:57 09:57 WBC 16.67 H (4.8-10.8) K/uL Hgb 11.1 L (14.0-18.0) g/dL Hct 34.4 L (42-52) % Plt Count 149 (130-400) K/uL Creatinine 0.91 (0.6-1.4) mg/dl BMP 05/06/21 09:57 Sodium 139 Potassium 4.0 Chloride 109 H Carbon Dioxide 26 BUN 17 Creatinine 0.91 Glucose 124 H Calcium 9.3 Cardiac Enzymes 05/06/21 Range/Units 09:57 Troponin I 0.050 H* (0-0.045) ng/ml Liver Function 05/06/21 Range/Units 09:57 Total Bilirubin 2.0 H (0.2-1) mg/dl AST 27 (15-37) U/L ALT 20 (12-78) Alkaline Phosphatase 99 (45-117) U/L Albumin 2.9 L (3.4-5.0) gm/dl Diagnostic Findings Chest X-Ray 05/06/21 09:26 XR chest 1V portable CLINICAL HISTORY: Sepsis. COMPARISON STUDY: Chest radiograph November 03, 2020. FINDINGS: There is no pneumothorax. Small left pleural effusion is suspected. Extensive left lung airspace opacity has developed. There is diffuse interstitial thickening. Cardiomegaly is unchanged. IMPRESSION: 1. Interval development of extensive left lung airspace opacity which favors pneumonia. Radiographic follow-up to ensure resolution is recommended. 2. Diffuse interstitial thickening which may reflect pulmonary edema. 3. Small left pleural effusion. ACT 112: Negative or not required by law. Electronically signed by: Jeremy Garibay M.D. 05/06/2021 10:21 AM ECG Additional Comments: Read by cardiology: Atrial flutter with variable A-V block Left anterior fascicular block Left ventricular hypertrophy with QRS widening and repolarization abnormality Abnormal ECG When compared with ECG of 05-NOV-2020 05:45, Atrial flutter has replaced Atrial fibrillation Vent. rate has increased BY 42 BPM Minimal criteria for Anterior infarct are no longer Present T wave inversion less evident in Lateral leads Confirmed by Luis Eduardo Dunn ([id number]) on 05/06/2021 10:30:50 AM Code Status & VTE Plan VTE Prophylaxis Plan VTE Prophylaxis will be ordered: Yes Supervising Physician Co-Signing Physician Notes Attending addendum: The patient was seen and examined in emergency room He is a 80-year-old male with significant past medical history as mentioned in H&P apparently was brought in from the alf with shortness of breath since this morning He was noted to have sepsis with extensive left lung pneumonia He has been using CPAP and appropriate antibiotics were restarted On examination Remains stable on CPAP Hemodynamically stable with minimal tachycardia and tachypnea Chest-coarse crackles Left side Heart-S1, S2 regular Abdomen-benign Extremities-trace edema bilaterally His admission labs, EKG and imaging studies reviewed Has extensive left lung pneumonia with acute respiratory failure and sepsis Has been on intravenous Zosyn and vancomycin and appropriate cultures were taken Agree with assessment and plan as outlined above by JAYY Chavis DR
[2021-05-06] MEDS ORDERED: CONSULT PHARMACY STA (12:22)
[2021-05-06] MEDS ORDERED: SODIUM CHLORIDE 0.9% 1000ML 1,000 ML IV SCH (12:30)
--- NOTE | 2021-05-06 13:44 | Ultrasound Report ---
US venous doppler LE BI CLINICAL HISTORY: Bilateral leg swelling COMPARISON: None available at the time of this dictation. TECHNIQUE: Bilateral lower extremity real-time compression venous ultrasound with Color Doppler imagi ng. Utilizing real-time ultrasonic imaging multiple real time high-resolution ultrasonic images with comp ression and noncompression maneuvers of the deep venous system in addition to color doppler imaging w ere performed from the common femoral vein through the proximal calf veins. FINDINGS: Currently there is normal compressibility of the deep venous system from the common femoral vein thro ugh the proximal calf veins. No current evidence of acute thrombosis is identified. However on the left side, the distal peroneal vein is noncompressible. The possibility of minimal chr onic deep venous thrombosis within the distal calf cannot be excluded. However, this is very minimal. Impression: No evidence of deep venous thrombus within the upper legs bilaterally. 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 Clinical correlation as to whether or not the patient has pain at this site is recommended. ACT 112: Negative or not required by law. Electronically signed by: Wesley Mendoza M.D. 05/06/2021 1:42 PM
[2021-05-06] MEDS ORDERED: PIPERACILLIN/TAZOBACTAM 4.5 GM in DEXTROSE 5% 100 ML IV ONE (15:28)
[2021-05-06] MEDS ORDERED: PIPERACILL/TAZOBAC CONSULT ACTIVE PRN (15:28)
[2021-05-06] MEDS ORDERED: ACETAMINOPHEN 325 MG TAB PO PRN (15:28)
[2021-05-06] MEDS ORDERED: NITROGLYCERIN SL 0.4 MG/TAB TAB SL PRN (15:28)
[2021-05-06] MEDS ORDERED: PIPERACILLIN/TAZOBACTAM 3.375 GM in DEXTROSE 5% 100 ML IV ONE (16:00)
[2021-05-06] MEDS: ALBUT/IPRATROP 3MG/0.5MG NEB 3 ML VIAL NEB SCH ×2 (17:29→19:40)
[2021-05-06 19:15] LABS: Appearance Urine Clear (Clear); Bacteria Urine Automated Negative (Negative); Bilirubin Urine Negative (Negative); Blood Urine Negative (Negative); Color Urine Dark Yellow; Glucose Urine UA Negative (Negative); Ketones Urine Negative (Negative); Leukocyte Esterase Urine Trace (Negative); Nitrite Urine Negative (Negative); Protein Urine 1+ (Negative); RBC Urine Automated 0-4 /hpf (0-4); Specific Gravity Urine 1.019 (1.000-1.030); Urobilinogen Urine Negative (Negative)
[2021-05-06] MEDS: LACTULOSE SYRUP 20 GM/30 ML UDC PO SCH (20:42)
[2021-05-06] MEDS: DOXYCYCLINE HYCLATE 100 MG in DEXTROSE 5% 100 ML IV SCH (20:42)
[2021-05-06] MEDS: FLUTICASONE/VILANTEROL 100/25MCG 14 PUFFS/INHALER INH SCH (20:43)
[2021-05-06] MEDS: DULoxetine HCL 30 MG CAP PO SCH (20:43)
[2021-05-06] MEDS: APIXABAN 5 MG TABLET PO SCH (20:43)
[2021-05-06] MEDS: PANTOprazole 40 MG TAB PO SCH (20:43)
[2021-05-06] MEDS: METOPROLOL TARTRATE 25 MG TAB PO SCH (20:43)
[2021-05-06] MEDS: PIPERACILLIN/TAZOBACTAM 3.375 GM in DEXTROSE 5% 100 ML IV SCH (22:59)
[2021-05-07 05:35] LABS: Basophils # (auto) 0.03 K/uL (0-0.2); Basophils % (auto) 0.2 %; Eosinophils # (auto) 0.06 K/uL (0-0.5); Eosinophils % (auto) 0.5 %; Hematocrit (blood only) 33.8 % (42-52); Hemoglobin 10.9 g/dL (14.0-18.0); Immature Granulocytes # (auto) 0.02 K/uL (0.00-0.02); Immature Granulocytes % (auto) 0.2 %; Lymphocytes # (auto) 0.82 K/uL (1.2-3.4); Lymphocytes % (auto) 6.5 %; Mean Corpuscular Hemoglobin 34.6 pg (25-34); Mean Corpuscular Hgb Conc 32.2 g/dL (32-36); Mean Corpuscular Volume 107.3 fL (80-100); Mean Platelet Volume 11.3 fL (7.4-10.4); Monocytes # (auto) 1.06 K/uL (0.11-0.59); Monocytes % (auto) 8.4 %; Neutrophils # (auto) 10.56 K/uL (1.4-6.5); Neutrophils % (auto) 84.2 %; Platelet Count 126 K/uL (130-400); RDW Coefficient of Variation 17.4 % (11.5-14.5); RDW Standard Deviation 68.3 fL (36.4-46.3); Red Blood Count 3.15 M/uL (4.7-6.1); White Blood Count 12.55 K/uL (4.8-10.8)
[2021-05-07 06:03] LABS: BUN Creatinine Ratio 20.6 (10-20); Calcium 9.3 mg/dl (8.5-10.1); Creatinine Clr Calc Pharmacy 72.6 ml/min; Est GFR (Non-African American) 79.4 ml/min
[2021-05-07] MEDS: PIPERACILLIN/TAZOBACTAM 3.375 GM in DEXTROSE 5% 100 ML IV SCH ×3 (06:41→21:11)
[2021-05-07] MEDS: ALBUT/IPRATROP 3MG/0.5MG NEB 3 ML VIAL NEB SCH ×4 (07:35→19:38)
[2021-05-07] MEDS: DOXYCYCLINE HYCLATE 100 MG in DEXTROSE 5% 100 ML IV SCH ×2 (07:45→20:38)
[2021-05-07] MEDS: METOPROLOL TARTRATE 25 MG TAB PO SCH (08:59)
[2021-05-07] MEDS: PANTOprazole 40 MG TAB PO SCH ×2 (08:59→20:37)
[2021-05-07] MEDS: PARoxetine HCL 20 MG TAB PO SCH (09:00)
[2021-05-07] MEDS: LOSARTAN POTASSIUM 50 MG TAB PO SCH (09:00)
[2021-05-07] MEDS: TAMSULOSIN HCL 0.4 MG CAP PO SCH (09:01)
[2021-05-07] MEDS: APIXABAN 5 MG TABLET PO SCH ×2 (09:02→20:37)
[2021-05-07] MEDS: LACTULOSE SYRUP 20 GM/30 ML UDC PO SCH ×2 (09:02→20:40)
[2021-05-07] MEDS ORDERED: METOPROLOL TARTRATE 1 MG/ML VIAL IV STA (09:15)
[2021-05-07] MEDS: NITROGLYCERIN 2% OINTMENT 30GM TUBE EXT SCH ×2 (10:21→18:02)
--- NOTE | 2021-05-07 15:16 | Hospitalist Progress Note ---
Date of Service May 07, 2021 Assessment & Plan (1) Acute respiratory failure: Plan: Secondary to pneumonia (2) Left lower lobe pneumonia: Plan: Patient is 80-year-old male with PMH atrial fibrillation on Eliquis, peptic ulcer disease, h/o GI bleed, COPD, HTN, h/o DVT/PE s/p IVC, cirrhosis, mitral regurgitation, h/o prostate CA, presented to ER with c/o respiratory distress today. Reported pulse ox of 57% on RA and was placed pt on 10L non-breather by EMS and up to 93% and was transported to ER. Unknown if pt had fever/chills, cough, CP. In ER pt afebrile, P: 124, R: 24, BP 127/76, was placed on BiPAP with sats 93%. WBC: 16, lactate: 1.9, procalcitonin: 0.5. Negative COVID-19 PCR, negative influenza PCR, negative RSV PCR. POC ABG: pH: 7.4, pCO2: 40, PO2: 75, HCO3: 25.8. CXR: Left lung opacity. In ER was given ertapenem and vancomycin Blood culture -have been negative so far Obtain MRSA swab, sputum culture-MRSA swab is negative and vancomycin has been discontinued with addition of doxycycline to cover atypicals Was a started with intravenous Zosyn, vancomycin Required BiPAP initially and now on nasal cannula DuoNeb,Gentle IVF Clinically much better We will continue current management (3) Elevated troponin: Plan: Troponin: 0.5. EKG atrial flutter, left anterior fascicular block, LVH, T wave inversion lateral leads (less than prior EKG) Probable secondary to demand ischemia Serial troponins remain unremarkable Echo of the heart showed: No changes from prior echo. Normal LV chamber size with mild concentric LVH, low normal systolic function with EF of 50 to 55%, septal motion consistent with conduction abnormality, moderate hypokinesis of the inferolateral wall, moderate mitral regurgitation and a small loculated posterior pericardial effusion No cardiac symptoms (4) Atrial fibrillation, permanent: Plan: On Eliquis Current tachycardia Patient previously not on beta-landen or calcium channel landen secondary to bradycardia Will start Lopressor 25 mg twice daily Continue Eliquis Rate remains controlled though on the upper side (5) Lower extremity edema: Plan: Patient with reported chronic BLE edema Today right lower extremity slightly greater than left and has some erythema Obtain Doppler to rule out DVT-no evidence of acute DVT (6) COPD (chronic obstructive pulmonary disease): Plan: Continue home inhaler Duo nebs Condition seems to be improving and now on 2 L of oxygen via nasal cannula (7) HTN (hypertension): Plan: Continue losartan with holding parameters Blood pressure noted to be very high this morning Medications have been adjusted We will monitor (8) History of DVT (deep vein thrombosis): Plan: H/O PE. S/P IVC Filter (9) Peptic ulcer disease: Plan: Continue PPI (10) Prostate cancer: Plan: Was previously on Lupron. It is reported pt doesn't want to take any more. Unsure when last dose Continue tamsulosin DVT Prophylaxis -Eliquis Full Code as per previous admissions Patient currently incarcerated at [facility] Admission and Anticipated Discharge Date Admission Date: May 06, 2021 Subjective 05/07/2021 The patient was seen and examined in emergency room in the holding area He has been feeling much better and has not been requiring any BiPAP to maintain saturation Denies any chest pain but has minimal shortness of breath at rest Wants to eat Review of Systems Review of Systems: All systems reviewed and are unremarkable except as noted below Respiratory: Minimal shortness of breath at rest Neurologic: Generally weak Physical Exam Physical Exam: Lying in bed comfortably Constitutional: well developed, well nourished, + ill appearing and + obese Eyes: PERRL, conjunctivae normal, anicteric sclerae ENMT: external ear and nose normal, oropharynx normal Neck: trachea midline, no thyromegaly Respiratory: + respiratory distress (Minimal distress) Auscultation: + diminished lung sounds and + crackles (Bibasilar crackles more on the left) Cardiovascular: Rate/Rhythm: regular rate and regular rhythm; not tachycardic Heart Sounds: normal S1 and normal S2; no murmur Extremities: + edema (Trace edema bilaterally) Gastrointestinal (Abdomen): Inspection/Auscultation: + abdomen distended and normal bowel sounds Percussion/Palpation: abdomen soft; abdomen nontender Musculoskeletal: No acute arthritis in any joint Neurologic: Alert, awake and oriented x3 Results & Data Results & Data ([facility]) Vital Signs (Past 12 Hours) Vital Signs Pulse Pulse Resp BP BP Pulse Ox 05/07/21 12:04 93 H 2 L 96 05/07/21 11:24 90 28 H 147/81 H 97 05/07/21 10:21 86 155/80 H 05/07/21 08:00 98 H 26 H 180/119 H 98 05/07/21 07:34 97 H 20 97 05/07/21 05:40 93 Laboratory Results Short CBC 05/07/21 Range/Units 04:54 WBC 12.55 H (4.8-10.8) K/uL Hgb 10.9 L (14.0-18.0) g/dL Hct 33.8 L (42-52) % Plt Count 126 L (130-400) K/uL BMP 05/07/21 04:54 Sodium 141 Potassium 4.0 Chloride 112 H Carbon Dioxide 24 BUN 19 H Creatinine 0.92 Glucose 105 H Calcium 9.3 Cardiac Enzymes 05/06/21 05/06/21 Range/Units 16:12 22:07 Troponin I 0.076 H* 0.082 H* (0-0.045) ng/ml Urine 05/06/21 Range/Units 19:00 Urine Color Dark Yellow Urine Appearance Clear (Clear) Urine pH 7.0 (4.5-7.5) Ur Specific [place] 1.019 (1.000-1.030) Urine Protein 1+ H (Negative) Urine Glucose (UA) Negative (Negative) Medications Administered Current Inpatient Medications Acetaminophen (Acetaminophen 325 Mg Tab) 650 mg PO Q4H PRN PRN Reason: Pain or Fever Stop: 06/05/21 15:27 Albuterol (Albut/Ipratrop 3mg/0.5mg Neb 3 Ml Vial) 3 ml NEB QIDR REPLACED BY [facility]; Protocol Stop: 06/05/21 15:27 Last Admin: 05/07/21 12:04 Dose: 3 ml Documented by: Apixaban (Apixaban 5 Mg Tablet) 5 mg PO BID REPLACED BY [facility] Stop: 06/05/21 20:59 Last Admin: 05/07/21 09:02 Dose: 5 mg Documented by: Duloxetine HCl (Duloxetine Hcl 30 Mg Cap) 30 mg PO HS REPLACED BY [facility] Stop: 06/05/21 20:59 Last Admin: 05/06/21 20:43 Dose: 30 mg Documented by: Fluticasone/Vilanterol (Fluticasone/Vilanterol 100/25mcg 14 Puffs/Inhaler) 1 puffs INH Q24H REPLACED BY [facility] Stop: 06/05/21 20:59 Last Admin: 05/06/21 20:43 Dose: 1 puffs Documented by: Piperacillin Sod/Tazobactam (Sod 3.375 gm/ Dextrose) 115 mls @ 28.75 mls/hr IV Q8H REPLACED BY [facility]; Protocol Stop: 05/13/21 21:59 Last Admin: 05/07/21 14:25 Dose: 28.8 mls/hr Documented by: Doxycycline Hyclate 100 mg/ (Dextrose) 110 mls @ 50 mls/hr IV Q12H REPLACED BY [facility]; Protocol Stop: 05/13/21 19:29 Last Infusion: 05/07/21 10:34 Dose: Infused Documented by: Lactulose (Lactulose Syrup 20 Gm/30 Ml Udc) 20 gm PO BID REPLACED BY [facility] Stop: 06/05/21 20:59 Last Admin: 05/07/21 09:02 Dose: Not Given Documented by: Losartan Potassium (Losartan Potassium 50 Mg Tab) [facility] Stop: 06/06/21 08:59 Last Admin: 05/07/21 09:00 Dose: 100 mg Documented by: Metoprolol Tartrate (Metoprolol Tartrate 50 Mg Tab) 50 mg PO BID REPLACED BY [facility] Stop: 06/06/21 20:59 Miscellaneous Information (Piperacill/Tazobac Consult Active) 1 ea N/A UD PRN PRN Reason: Consult Stop: 06/05/21 15:27 Nitroglycerin (Nitroglycerin Sl 0.4 Mg/Tab Tab) 0.4 mg SL UD PRN PRN Reason: Chest Pain Stop: 06/05/21 15:27 Nitroglycerin (Nitroglycerin 2% Ointment 30gm Tube) 1 inch EXT Q6 REPLACED BY [facility] Stop: 06/06/21 09:14 Last Admin: 05/07/21 10:21 Dose: 1 inch Documented by: Pantoprazole Sodium (Pantoprazole 40 Mg Tab) 40 mg PO BID REPLACED BY [facility] Stop: 06/05/21 20:59 Last Admin: 05/07/21 08:59 Dose: 40 mg Documented by: Paroxetine HCl (Paroxetine Hcl 20 Mg Tab) 20 mg PO QAM REPLACED BY [facility] Stop: 06/06/21 08:59 Last Admin: 05/07/21 09:00 Dose: 20 mg Documented by: Tamsulosin HCl (Tamsulosin Hcl 0.4 Mg Cap) 0.4 mg PO QAM STEPHANE Stop: 06/06/21 08:59 Last Admin: 05/07/21 09:01 Dose: 0.4 mg Documented by:
[2021-05-07] MEDS: METOPROLOL TARTRATE 50 MG TAB PO SCH (20:37)
[2021-05-07] MEDS: DULoxetine HCL 30 MG CAP PO SCH (20:37)
[2021-05-07] MEDS: FLUTICASONE/VILANTEROL 100/25MCG 14 PUFFS/INHALER INH SCH (20:39)
[2021-05-08] MEDS: NITROGLYCERIN 2% OINTMENT 30GM TUBE EXT SCH ×3 (02:22→13:14)
[2021-05-08] MEDS: PIPERACILLIN/TAZOBACTAM 3.375 GM in DEXTROSE 5% 100 ML IV SCH ×3 (05:52→22:14)
[2021-05-08 05:59] LABS: Basophils # (auto) 0.04 K/uL (0-0.2); Basophils % (auto) 0.4 %; Eosinophils # (auto) 0.14 K/uL (0-0.5); Eosinophils % (auto) 1.5 %; Hematocrit (blood only) 28.7 % (42-52); Hemoglobin 9.3 g/dL (14.0-18.0); Immature Granulocytes # (auto) 0.02 K/uL (0.00-0.02); Immature Granulocytes % (auto) 0.2 %; Lymphocytes # (auto) 1.05 K/uL (1.2-3.4); Lymphocytes % (auto) 11.6 %; Mean Corpuscular Hemoglobin 34.1 pg (25-34); Mean Corpuscular Hgb Conc 32.4 g/dL (32-36); Mean Corpuscular Volume 105.1 fL (80-100); Mean Platelet Volume 11.3 fL (7.4-10.4); Monocytes # (auto) 0.54 K/uL (0.11-0.59); Neutrophils # (auto) 7.28 K/uL (1.4-6.5); Neutrophils % (auto) 80.3 %; Platelet Count 121 K/uL (130-400); RDW Coefficient of Variation 16.9 % (11.5-14.5); RDW Standard Deviation 63.9 fL (36.4-46.3); Red Blood Count 2.73 M/uL (4.7-6.1); White Blood Count 9.07 K/uL (4.8-10.8)
[2021-05-08 06:24] LABS: Calcium 8.9 mg/dl (8.5-10.1); Creatinine Clr Calc Pharmacy 55.7 ml/min; Est GFR (African American) 66.7 ml/min; Est GFR (Non-African American) 57.6 ml/min; Potassium 3.9 mmol/L (3.5-5.1)
[2021-05-08 06:25] LABS: Phosphorus 2.4 mg/dl (2.5-4.9)
[2021-05-08] MEDS: ALBUT/IPRATROP 3MG/0.5MG NEB 3 ML VIAL NEB SCH ×4 (07:47→19:52)
[2021-05-08] MEDS: DOXYCYCLINE HYCLATE 100 MG in DEXTROSE 5% 100 ML IV SCH ×2 (07:55→20:27)
[2021-05-08] MEDS: PARoxetine HCL 20 MG TAB PO SCH (08:13)
[2021-05-08] MEDS: APIXABAN 5 MG TABLET PO SCH ×2 (08:13→20:30)
[2021-05-08] MEDS: TAMSULOSIN HCL 0.4 MG CAP PO SCH (08:13)
[2021-05-08] MEDS: LOSARTAN POTASSIUM 50 MG TAB PO SCH (08:13)
[2021-05-08] MEDS: LACTULOSE SYRUP 20 GM/30 ML UDC PO SCH ×3 (08:14→20:42)
[2021-05-08] MEDS: METOPROLOL TARTRATE 50 MG TAB PO SCH ×2 (08:14→20:28)
[2021-05-08] MEDS: PANTOprazole 40 MG TAB PO SCH ×2 (08:14→20:28)
--- NOTE | 2021-05-08 12:19 | Hospitalist Progress Note ---
Date of Service May 08, 2021 Assessment & Plan (1) Acute respiratory failure: Plan: Secondary to pneumonia (2) Left lower lobe pneumonia: Plan: Patient is 80-year-old male with PMH atrial fibrillation on Eliquis, peptic ulcer disease, h/o GI bleed, COPD, HTN, h/o DVT/PE s/p IVC, cirrhosis, mitral regurgitation, h/o prostate CA, presented to ER with c/o respiratory distress today. Reported pulse ox of 57% on RA and was placed pt on 10L non-breather by EMS and up to 93% and was transported to ER. Unknown if pt had fever/chills, cough, CP. In ER pt afebrile, P: 124, R: 24, BP 127/76, was placed on BiPAP with sats 93%. WBC: 16, lactate: 1.9, procalcitonin: 0.5. Negative COVID-19 PCR, negative influenza PCR, negative RSV PCR. POC ABG: pH: 7.4, pCO2: 40, PO2: 75, HCO3: 25.8. CXR: Left lung opacity. In ER was given ertapenem and vancomycin Blood culture -have been negative so far Obtain MRSA swab, sputum culture-MRSA swab is negative and vancomycin has been discontinued with addition of doxycycline to cover atypicals Was a started with intravenous Zosyn, vancomycin Required BiPAP initially and now on nasal cannula DuoNeb,Gentle IVF Has cough without any phlegm and shortness of breath is much better She has been requiring 2 L of oxygen via nasal cannula to maintain saturation We will get PT evaluation and possible discharge tomorrow on oral antibiotic (3) Elevated troponin: Plan: Troponin: 0.5. EKG atrial flutter, left anterior fascicular block, LVH, T wave inversion lateral leads (less than prior EKG) Probable secondary to demand ischemia Serial troponins remain unremarkable Echo of the heart showed: No changes from prior echo. Normal LV chamber size with mild concentric LVH, low normal systolic function with EF of 50 to 55%, septal motion consistent with conduction abnormality, moderate hypokinesis of the inferolateral wall, moderate mitral regurgitation and a small loculated posterior pericardial effusion No cardiac symptoms (4) Atrial fibrillation, permanent: Plan: On Eliquis Current tachycardia Patient previously not on beta-landen or calcium channel landen secondary to bradycardia Will start Lopressor 25 mg twice daily Continue Eliquis Rate remains controlled though on the upper side (5) Lower extremity edema: Plan: Patient with reported chronic BLE edema Today right lower extremity slightly greater than left and has some erythema Obtain Doppler to rule out DVT-no evidence of acute DVT (6) COPD (chronic obstructive pulmonary disease): Plan: Continue home inhaler Duo nebs Condition seems to be improving and now on 2 L of oxygen via nasal cannula (7) HTN (hypertension): Plan: Continue losartan with holding parameters Blood pressure noted to be very high this morning Medications have been adjusted We will monitor-Nitropaste has been discontinued May need to add a small dose of Norvasc's if the blood pressure goes up (8) History of DVT (deep vein thrombosis): Plan: H/O PE. S/P IVC Filter (9) Peptic ulcer disease: Plan: Continue PPI (10) Prostate cancer: Plan: Was previously on Lupron. It is reported pt doesn't want to take any more. Unsure when last dose Continue tamsulosin DVT Prophylaxis -Eliquis Full Code as per previous admissions Patient currently incarcerated at [facility] Admission and Anticipated Discharge Date Admission Date: May 06, 2021 Subjective 05/07/2021 The patient was seen and examined in emergency room in the holding area He has been feeling much better and has not been requiring any BiPAP to maintain saturation Denies any chest pain but has minimal shortness of breath at rest Wants to eat 05/08/2021 The patient was seen and examined in ICU with telemetry status He has been feeling much better today No chest pain or palpitation but requiring 2 L of oxygen to maintain saturation Review of Systems Review of Systems: All systems reviewed and are unremarkable except as noted below Respiratory: Minimal shortness of breath at rest Neurologic: Generally weak Physical Exam Physical Exam: Lying in bed comfortably Constitutional: well developed, well nourished, + ill appearing and + obese Eyes: PERRL, conjunctivae normal, anicteric sclerae ENMT: external ear and nose normal, oropharynx normal Neck: trachea midline, no thyromegaly Respiratory: + respiratory distress (Minimal distress) Auscultation: + diminished lung sounds and + crackles (Bibasilar crackles more on the left) Cardiovascular: Rate/Rhythm: regular rate and regular rhythm; not tachycardic Heart Sounds: normal S1 and normal S2; no murmur Extremities: + edema (Trace edema bilaterally) Gastrointestinal (Abdomen): Inspection/Auscultation: + abdomen distended and normal bowel sounds Percussion/Palpation: abdomen soft; abdomen nontender Musculoskeletal: No acute arthritis in any joint Neurologic: Alert, awake and oriented x3 Lymphatic: no cervical or axillary lymphadenopathy Results & Data Results & Data ([facility]) Vital Signs (Past 12 Hours) Vital Signs Temp Pulse Resp BP Pulse Ox 05/08/21 11:03 79 20 94 05/08/21 08:45 36.6 C 83 18 144/91 H 97 05/08/21 08:05 85 20 143/85 H 98 05/08/21 07:50 78 22 96 05/08/21 05:00 86 18 136/84 94 Laboratory Results Short CBC 05/08/21 Range/Units 05:28 WBC 9.07 (4.8-10.8) K/uL Hgb 9.3 L (14.0-18.0) g/dL Hct 28.7 L (42-52) % Plt Count 121 L (130-400) K/uL BMP 05/08/21 05:28 Sodium 140 Potassium 3.9 Chloride 112 H Carbon Dioxide 24 BUN 25 H Creatinine 1.20 Glucose 163 H Calcium 8.9 Medications Administered Current Inpatient Medications Acetaminophen (Acetaminophen 325 Mg Tab) 650 mg PO Q4H PRN PRN Reason: Pain or Fever Stop: 06/05/21 15:27 Albuterol (Albut/Ipratrop 3mg/0.5mg Neb 3 Ml Vial) 3 ml NEB QIDR [facility], [facility]1983; Protocol Stop: 06/05/21 15:27 Last Admin: 05/08/21 11:00 Dose: 3 ml Documented by: Apixaban (Apixaban 5 Mg Tablet) 5 mg PO BID [facility]1983 Stop: 06/05/21 20:59 Last Admin: 05/08/21 08:13 Dose: 5 mg Documented by: Duloxetine HCl (Duloxetine Hcl 30 Mg Cap) 30 mg PO HS [facility]1983 Stop: 06/05/21 20:59 Last Admin: 05/07/21 20:37 Dose: 30 mg Documented by: Fluticasone/Vilanterol (Fluticasone/Vilanterol 100/25mcg 14 Puffs/Inhaler) 1 puffs INH Q24H [facility], [facility]1983 Stop: 06/05/21 20:59 Last Admin: 05/07/21 20:39 Dose: 1 puffs Documented by: Piperacillin Sod/Tazobactam (Sod 3.375 gm/ Dextrose) 115 mls @ 28.75 mls/hr IV Q8H [facility], [facility]–1983; Protocol Stop: 05/13/21 21:59 Last Infusion: 05/08/21 10:20 Dose: Infused Documented by: Doxycycline Hyclate 100 mg/ (Dextrose) 110 mls @ 50 mls/hr IV Q12H [facility], [facility]1983; Protocol Stop: 05/13/21 19:29 Last Infusion: 05/08/21 10:21 Dose: Infused Documented by: Lactulose (Lactulose Syrup 20 Gm/30 Ml Udc) 20 gm PO BID [facility] Stop: 06/05/21 20:59 Last Admin: 05/08/21 08:19 Dose: Not Given Documented by: Losartan Potassium (Losartan Potassium 50 Mg Tab) [facility] Stop: 06/06/21 08:59 Last Admin: 05/08/21 08:13 Dose: 100 mg Documented by: Metoprolol Tartrate (Metoprolol Tartrate 50 Mg Tab) 50 mg PO BID [facility]1983 Stop: 06/06/21 20:59 Last Admin: 05/08/21 08:14 Dose: 50 mg Documented by: Miscellaneous Information (Piperacill/Tazobac Consult Active) 1 ea N/A UD PRN PRN Reason: Consult Stop: 06/05/21 15:27 Nitroglycerin (Nitroglycerin Sl 0.4 Mg/Tab Tab) 0.4 mg SL UD PRN PRN Reason: Chest Pain Stop: 06/05/21 15:27 Pantoprazole Sodium (Pantoprazole 40 Mg Tab) 40 mg PO BID [facility] Stop: 06/05/21 20:59 Last Admin: 05/08/21 08:14 Dose: 40 mg Documented by: Paroxetine HCl (Paroxetine Hcl 20 Mg Tab) [facility] Stop: 06/06/21 08:59 Last Admin: 05/08/21 08:13 Dose: 20 mg Documented by: Tamsulosin HCl (Tamsulosin Hcl 0.4 Mg Cap) 0.4 mg PO QAM [facility]1983 Stop: 06/06/21 08:59 Last Admin: 05/08/21 08:13 Dose: 0.4 mg Documented by:
[2021-05-08] MEDS: FLUTICASONE/VILANTEROL 100/25MCG 14 PUFFS/INHALER INH SCH (20:29)
[2021-05-08] MEDS: DULoxetine HCL 30 MG CAP PO SCH (20:42)
[2021-05-09] MEDS: PIPERACILLIN/TAZOBACTAM 3.375 GM in DEXTROSE 5% 100 ML IV SCH (05:28)
[2021-05-09] MEDS: DOXYCYCLINE HYCLATE 100 MG in DEXTROSE 5% 100 ML IV SCH (07:37)
--- NOTE | 2021-05-09 07:43 | Electrocardiogram Report ---
Test Reason : Blood Pressure : / mmHG Vent. Rate : 081 BPM Atrial Rate : 040 BPM P-R Int : 000 ms QRS Dur : 136 ms QT Int : 422 ms P-R-T Axes : 000 -37 090 degrees QTc Int : 490 ms Atrial fibrillation Left axis deviation Non-specific intra-ventricular conduction block Abnormal ECG When compared with ECG of 06-MAY-2021 09:29, QRS duration has increased Confirmed by Stanislaw Coyle ([id number]) on 05/09/2021 7:42:31 AM Referred By: [facility] Confirmed By:Kevin Coyle
[2021-05-09] MEDS: ALBUT/IPRATROP 3MG/0.5MG NEB 3 ML VIAL NEB SCH (07:47)
[2021-05-09] MEDS: LOSARTAN POTASSIUM 50 MG TAB PO SCH (07:59)
[2021-05-09] MEDS: LACTULOSE SYRUP 20 GM/30 ML UDC PO SCH (07:59)
[2021-05-09] MEDS: APIXABAN 5 MG TABLET PO SCH (07:59)
[2021-05-09] MEDS: PARoxetine HCL 20 MG TAB PO SCH (07:59)
[2021-05-09] MEDS: PANTOprazole 40 MG TAB PO SCH (07:59)
[2021-05-09] MEDS: TAMSULOSIN HCL 0.4 MG CAP PO SCH (08:00)
[2021-05-09 08:36] LABS: Basophils # (auto) 0.05 K/uL (0-0.2); Basophils % (auto) 0.7 %; Eosinophils # (auto) 0.11 K/uL (0-0.5); Eosinophils % (auto) 1.6 %; Hematocrit (blood only) 29.9 % (42-52); Hemoglobin 9.6 g/dL (14.0-18.0); Immature Granulocytes # (auto) 0.01 K/uL (0.00-0.02); Immature Granulocytes % (auto) 0.1 %; Lymphocytes # (auto) 0.69 K/uL (1.2-3.4); Lymphocytes % (auto) 9.9 %; Mean Corpuscular Hemoglobin 34.2 pg (25-34); Mean Corpuscular Hgb Conc 32.1 g/dL (32-36); Mean Corpuscular Volume 106.4 fL (80-100); Mean Platelet Volume 10.9 fL (7.4-10.4); Monocytes # (auto) 0.56 K/uL (0.11-0.59); Neutrophils # (auto) 5.55 K/uL (1.4-6.5); Neutrophils % (auto) 79.7 %; Platelet Count 120 K/uL (130-400); RDW Coefficient of Variation 16.6 % (11.5-14.5); RDW Standard Deviation 64.6 fL (36.4-46.3); Red Blood Count 2.81 M/uL (4.7-6.1); White Blood Count 6.97 K/uL (4.8-10.8)
[2021-05-09 09:03] LABS: BUN Creatinine Ratio 18.9 (10-20); Calcium 8.8 mg/dl (8.5-10.1); Creatinine Clr Calc Pharmacy 66.2 ml/min; Est GFR (African American) 82.2 ml/min; Est GFR (Non-African American) 70.9 ml/min; Magnesium 1.7 mg/dl (1.8-2.4); Potassium 3.9 mmol/L (3.5-5.1)
[2021-05-09] MEDS: METOPROLOL TARTRATE 50 MG TAB PO SCH (09:45)
[2021-05-09] MEDS ORDERED: ALBUT/IPRATROP 3MG/0.5MG NEB 3 ML VIAL NEB PRN (09:55)
--- NOTE | 2021-05-09 13:58 | Hospitalist Progress Note ---
Date of Service May 09, 2021 Assessment & Plan (1) Acute respiratory failure: Plan: Secondary to pneumonia (2) Left lower lobe pneumonia: Plan: Patient is 80-year-old male with PMH atrial fibrillation on Eliquis, peptic ulcer disease, h/o GI bleed, COPD, HTN, h/o DVT/PE s/p IVC, cirrhosis, mitral regurgitation, h/o prostate CA, presented to ER with c/o respiratory distress today. Reported pulse ox of 57% on RA and was placed pt on 10L non-breather by EMS and up to 93% and was transported to ER. Unknown if pt had fever/chills, cough, CP. In ER pt afebrile, P: 124, R: 24, BP 127/76, was placed on BiPAP with sats 93%. WBC: 16, lactate: 1.9, procalcitonin: 0.5. Negative COVID-19 PCR, negative influenza PCR, negative RSV PCR. POC ABG: pH: 7.4, pCO2: 40, PO2: 75, HCO3: 25.8. CXR: Left lung opacity. In ER was given ertapenem and vancomycin Blood culture -have been negative so far Obtain MRSA swab, sputum culture-MRSA swab is negative and vancomycin has been discontinued with addition of doxycycline to cover atypicals Was a started with intravenous Zosyn, vancomycin Required BiPAP initially and now on nasal cannula DuoNeb,Gentle IVF Has cough without any phlegm and shortness of breath is much better She has been requiring 2 L of oxygen via nasal cannula to maintain saturation We will get PT evaluation and possible discharge tomorrow on oral antibiotic He has been feeling much better and will be discharged home this afternoon He underwent to a step O2 saturation test and he will require 4 L with ambulation and none at rest (3) Elevated troponin: Plan: Troponin: 0.5. EKG atrial flutter, left anterior fascicular block, LVH, T wave inversion lateral leads (less than prior EKG) Probable secondary to demand ischemia Serial troponins remain unremarkable Echo of the heart showed: No changes from prior echo. Normal LV chamber size with mild concentric LVH, low normal systolic function with EF of 50 to 55%, septal motion consistent with conduction abnormality, moderate hypokinesis of the inferolateral wall, moderate mitral regurgitation and a small loculated posterior pericardial effusion No cardiac symptoms (4) Atrial fibrillation, permanent: Plan: On Eliquis Current tachycardia Patient previously not on beta-landen or calcium channel landen secondary to bradycardia Will start Lopressor 25 mg twice daily Continue Eliquis Rate remains controlled though on the upper side No cardiac issues (5) Lower extremity edema: Plan: Patient with reported chronic BLE edema Today right lower extremity slightly greater than left and has some erythema Obtain Doppler to rule out DVT-no evidence of acute DVT Much better now (6) COPD (chronic obstructive pulmonary disease): Plan: Continue home inhaler Duo nebs Condition seems to be improving and now on 2 L of oxygen via nasal cannula Will need 4 L with ambulation (7) HTN (hypertension): Plan: Continue losartan with holding parameters Blood pressure noted to be very high this morning Medications have been adjusted We will monitor-Nitropaste has been discontinued May need to add a small dose of Norvasc's if the blood pressure goes up His blood pressure is controlled (8) History of DVT (deep vein thrombosis): Plan: H/O PE. S/P IVC Filter (9) Peptic ulcer disease: Plan: Continue PPI (10) Prostate cancer: Plan: Was previously on Lupron. It is reported pt doesn't want to take any more. Unsure when last dose Continue tamsulosin DVT Prophylaxis -Eliquis Full Code as per previous admissions Patient currently incarcerated at [facility] Will be discharged to [facility] this afternoon Admission and Anticipated Discharge Date Admission Date: May 06, 2021 Subjective 05/07/2021 The patient was seen and examined in emergency room in the holding area He has been feeling much better and has not been requiring any BiPAP to maintain saturation Denies any chest pain but has minimal shortness of breath at rest Wants to eat 05/08/2021 The patient was seen and examined in ICU with telemetry status He has been feeling much better today No chest pain or palpitation but requiring 2 L of oxygen to maintain saturation 05/09/2021 The patient was seen and examined in ICU with telemetry status He has been feeling much better and his cough is improved and denies any shortness of breath at rest Denies any fever and no chills, no chest pain, no nausea and or vomiting Review of Systems Review of Systems: All systems reviewed and are unremarkable except as noted below Respiratory: No shortness of breath at rest Neurologic: Generally weak Physical Exam Physical Exam: Lying in bed comfortably Constitutional: well developed, well nourished, + ill appearing and + obese Eyes: PERRL, conjunctivae normal, anicteric sclerae ENMT: external ear and nose normal, oropharynx normal Neck: trachea midline, no thyromegaly Respiratory: + respiratory distress (Minimal distress) Auscultation: + diminished lung sounds and + crackles (Bibasilar crackles more on the left) Cardiovascular: Rate/Rhythm: regular rate and regular rhythm; not tachycardic Heart Sounds: normal S1 and normal S2; no murmur Extremities: + edema (Trace edema bilaterally) Gastrointestinal (Abdomen): Inspection/Auscultation: + abdomen distended and normal bowel sounds Percussion/Palpation: abdomen soft; abdomen nontender Musculoskeletal: No acute arthritis in any joint Neurologic: Alert, awake and oriented x3. Generally weak Lymphatic: no cervical or axillary lymphadenopathy Results & Data Results & Data ([facility]) Vital Signs (Past 12 Hours) Vital Signs Temp Pulse Pulse Pulse Pulse Pulse Pulse 05/09/21 13:44 91 H 88 82 69 90 05/09/21 11:17 37.0 C 82 05/09/21 07:48 37.0 C 85 05/09/21 02:40 36.4 C L 84 Pulse Resp Resp Resp Resp Resp Resp 05/09/21 13:44 83 20 22 20 18 20 05/09/21 11:17 20 05/09/21 07:48 19 05/09/21 02:40 23 Resp BP Pulse Ox Pulse Ox Pulse Ox Pulse Ox Pulse Ox 05/09/21 13:44 94 H 85 L 87 L 94 83 L 05/09/21 11:17 137/82 90 05/09/21 07:48 156/78 H 100 05/09/21 02:40 157/84 H 98 Pulse Ox Pulse Ox 05/09/21 13:44 94 94 05/09/21 11:17 05/09/21 07:48 05/09/21 02:40 Laboratory Results Short CBC 05/09/21 Range/Units 08:22 WBC 6.97 (4.8-10.8) K/uL Hgb 9.6 L (14.0-18.0) g/dL Hct 29.9 L (42-52) % Plt Count 120 L (130-400) K/uL BMP 05/09/21 08:22 Sodium 141 Potassium 3.9 Chloride 111 H Carbon Dioxide 24 BUN 19 H Creatinine 1.01 Glucose 180 H Calcium 8.8 Medications Administered Current Inpatient Medications Acetaminophen (Acetaminophen 325 Mg Tab) 650 mg PO Q4H PRN PRN Reason: Pain or Fever Stop: 06/05/21 15:27 Albuterol (Albut/Ipratrop 3mg/0.5mg Neb 3 Ml Vial) 3 ml NEB QIDR PRN; Protocol PRN Reason: Shortness Of Breath Or Wheezing Stop: 06/05/21 15:27 Apixaban (Apixaban 5 Mg Tablet) 5 mg PO BID [facility] Stop: 06/05/21 20:59 Last Admin: 05/09/21 07:59 Dose: 5 mg Documented by: Cefuroxime Axetil (Cefuroxime Axetil 500 Mg Tab) 500 mg PO BID [facility] Stop: 05/16/21 20:59 Doxycycline Hyclate (Doxycycline Hyclate 100 Mg Cap) 100 mg PO BID [facility] Stop: 05/16/21 20:59 Duloxetine HCl (Duloxetine Hcl 30 Mg Cap) 30 mg PO HS [facility] Stop: 06/05/21 20:59 Last Admin: 05/08/21 20:42 Dose: Not Given Documented by: Fluticasone/Vilanterol (Fluticasone/Vilanterol 100/25mcg 14 Puffs/Inhaler) 1 puffs INH Q24H [facility] Stop: 06/05/21 20:59 Last Admin: 05/08/21 20:29 Dose: 1 puffs Documented by: Lactobacillus Acidoph/Casei/Rhamnos (Advanced Probiotic 1250 Mg Capsule) 2 cap PO DAILY [facility] Stop: 06/09/21 08:59 Lactulose (Lactulose Syrup 20 Gm/30 Ml Udc) 20 gm PO BID [facility] Stop: 06/05/21 20:59 Last Admin: 05/09/21 07:59 Dose: 20 gm Documented by: Losartan Potassium (Losartan Potassium 50 Mg Tab) 100 mg PO QAM [facility] Stop: 06/06/21 08:59 Last Admin: 05/09/21 07:59 Dose: 100 mg Documented by: Metoprolol Tartrate (Metoprolol Tartrate 50 Mg Tab) 50 mg PO BID [facility] Stop: 06/06/21 20:59 Last Admin: 05/09/21 09:45 Dose: 50 mg Documented by: Miscellaneous Information (Piperacill/Tazobac Consult Active) 1 ea N/A UD PRN PRN Reason: Consult Stop: 06/05/21 15:27 Nitroglycerin (Nitroglycerin Sl 0.4 Mg/Tab Tab) 0.4 mg SL UD PRN PRN Reason: Chest Pain Stop: 06/05/21 15:27 Pantoprazole Sodium (Pantoprazole 40 Mg Tab) 40 mg PO BID [facility] Stop: 06/05/21 20:59 Last Admin: 05/09/21 07:59 Dose: 40 mg Documented by: Paroxetine HCl (Paroxetine Hcl 20 Mg Tab) [facility] Stop: 06/06/21 08:59 Last Admin: 05/09/21 07:59 Dose: 20 mg Documented by: Tamsulosin HCl (Tamsulosin Hcl 0.4 Mg Cap) [facility] Stop: 06/06/21 08:59 Last Admin: 05/09/21 08:00 Dose: 0.4 mg Documented by:
[2021-05-09 14:34] LABS: iSTAT Potassium 4.1 mmol/L (3.3-5.0); iSTAT Sodium 140 mmol/L (135-144)
[2021-05-09 14:35] LABS: iSTAT Arterial Blood Gas HCO3 26 meg/L (19-24); iSTAT Arterial Blood Gas pCO2 41 mmHg (35-46); iSTAT Arterial Blood Gas pH 7.41 (7.35-7.45); iSTAT Arterial Blood Gas pO2 75 mmHg (80-95); iSTAT Carbon Dioxide 27 mmol/L (24-31); iSTAT Hematocrit 28 % (42-52); iSTAT Hemoglobin 9.5 g/dl (14.0-18.0); iSTAT Sample Type Arterial
[2021-05-09] MEDS ORDERED: cefUROXime axetil 500 MG TAB PO SCH (21:00)
[2021-05-09] MEDS ORDERED: DOXYCYCLINE HYCLATE 100 MG CAP PO SCH (21:00)
[2021-05-10] MEDS ORDERED: ADVANCED PROBIOTIC 1250 MG CAPSULE PO SCH (09:00)
--- NOTE | 2021-05-17 09:35 | Discharge Summary ---
Date of Service May 17, 2021 Admission HPI Per Admitting Provider Patient is 80-year-old male with PMH atrial fibrillation on Eliquis, peptic ulcer disease, h/o GI bleed, COPD, HTN, h/o DVT/PE s/p IVC, cirrhosis, mitral regurgitation, h/o prostate CA, presented to ER with c/o respiratory distress. History is obtained from [facility] staff secondary to pt's current state. It is reported today pt was found to be in respiratory distress, 57% on RA pulse ox. EMS placed pt on 10L non-breather and up to 93% and was transported to ER. [facility] staff does not know if pt has had any fever/chills, cough or any recent complaints of SOB or chest pain. In ER pt afebrile, P: 124, R: 24, BP 127/76, was placed on BiPAP with sats 93%. WBC: 16, lactate: 1.9, procalcitonin: 0.5. Negative COVID-19 PCR, negative influenza PCR, negative RSV PCR. POC ABG: pH: 7.4, pCO2: 40, PO2: 75, HCO3: 25.8. CXR: Left lung opacity. In ER was given ertapenem and vancomycin Admission Exam Per Admitting Provider Physical Exam: General: Ill appearing elderly male, WDWN, currently on bipap Head: normocephalic, atraumatic Eyes: PERRL, EOM's intact, conjunctiva non-injected, anicteric ENT: normal inspection external ears, nose, mucous membranes dry Neck: supple, trachea midline Lungs: On bipap, sat 93%, +rhonchi CV: irregularly irregular, rate 104, + murmur, + 2+ pretibial edema, right greater than left Abd: normal BS, soft, no apparent tenderness to palpation Ext: no cyanosis, right lower leg with mild erythema Neuro: lethargic, drowsy, not responding to verbal stimuli Skin: warm, dry Principal Diagnosis Acute respiratory failure, left lower lobe pneumonia, COPD, atrial fibrillation on Eliquis, hypertension Discharge Exam Lying in bed comfortably Constitutional well developed, well nourished, + ill appearing and + obese Eyes PERRL, conjunctivae normal, anicteric sclerae ENMT external ear and nose normal, oropharynx normal Neck trachea midline, no thyromegaly Respiratory + respiratory distress (Minimal distress) Auscultation: + diminished lung sounds and + crackles (Bibasilar crackles more on the left) Cardiovascular Rate/Rhythm: regular rate and regular rhythm; not tachycardic Heart Sounds: normal S1 and normal S2; no murmur Extremities: + edema (Trace edema bilaterally) Gastrointestinal (Abdomen) Inspection/Auscultation: + abdomen distended and normal bowel sounds Percussion/Palpation: abdomen soft; abdomen nontender Lymphatic no cervical or axillary lymphadenopathy Discharge Data Allergies Allergy/AdvReac Type Severity Reaction Status Date / Time doxazosin [From Cardura] Allergy Unknown Unknown Verified 05/06/21 10:14 prazosin [From Minipress] Allergy Unknown Unknown Verified 05/06/21 10:14 Consultations 05/06/21 11:25 ED Decision to Admit Stat Ordered Studies 05/06/21 12:49 US venous doppler [facility] Urgent Hospital Course (1) Acute respiratory failure: Secondary to pneumonia (2) Left lower lobe pneumonia: Patient is 80-year-old male with PMH atrial fibrillation on Eliquis, peptic ulcer disease, h/o GI bleed, COPD, HTN, h/o DVT/PE s/p IVC, cirrhosis, mitral regurgitation, h/o prostate CA, presented to ER with c/o respiratory distress today. Reported pulse ox of 57% on RA and was placed pt on 10L non- breather by EMS and up to 93% and was transported to ER. Unknown if pt had fever/chills, cough, CP. In ER pt afebrile, P: 124, R: 24, BP 127/76, was placed on BiPAP with sats 93%. WBC: 16, lactate: 1.9, procalcitonin: 0.5. Negative COVID-19 PCR, negative influenza PCR, negative RSV PCR. POC ABG: pH: 7.4, pCO2: 40, PO2: 75, HCO3: 25.8. CXR: Left lung opacity. In ER was given ertapenem and vancomycin Blood culture -have been negative so far Obtain MRSA swab, sputum culture-MRSA swab is negative and vancomycin has been discontinued with addition of doxycycline to cover atypicals Was a started with intravenous Zosyn, vancomycin Required BiPAP initially and now on nasal cannula DuoNeb,Gentle IVF Has cough without any phlegm and shortness of breath is much better She has been requiring 2 L of oxygen via nasal cannula to maintain saturation We will get PT evaluation and possible discharge tomorrow on oral antibiotic He has been feeling much better and will be discharged home this afternoon He underwent to a step O2 saturation test and he will require 4 L with ambulation and none at rest (3) Elevated troponin: Troponin: 0.5. EKG atrial flutter, left anterior fascicular block, LVH, T wave inversion lateral leads (less than prior EKG) Probable secondary to demand ischemia Serial troponins remain unremarkable Echo of the heart showed: No changes from prior echo. Normal LV chamber size with mild concentric LVH, low normal systolic function with EF of 50 to 55%, septal motion consistent with conduction abnormality, moderate hypokinesis of the inferolateral wall, moderate mitral regurgitation and a small loculated posterior pericardial effusion No cardiac symptoms (4) Atrial fibrillation, permanent: On Eliquis Current tachycardia Patient previously not on beta-landen or calcium channel landen secondary to bradycardia Will start Lopressor 25 mg twice daily Continue Eliquis Rate remains controlled though on the upper side No cardiac issues (5) Lower extremity edema: Patient with reported chronic BLE edema Today right lower extremity slightly greater than left and has some erythema Obtain Doppler to rule out DVT-no evidence of acute DVT Much better now (6) COPD (chronic obstructive pulmonary disease): Continue home inhaler Duo nebs Condition seems to be improving and now on 2 L of oxygen via nasal cannula Will need 4 L with ambulation (7) HTN (hypertension): Continue losartan with holding parameters Blood pressure noted to be very high this morning Medications have been adjusted We will monitor-Nitropaste has been discontinued May need to add a small dose of Norvasc's if the blood pressure goes up His blood pressure is controlled (8) History of DVT (deep vein thrombosis): H/O PE. S/P IVC Filter (9) Peptic ulcer disease: Continue PPI (10) Prostate cancer: Was previously on Lupron. It is reported pt doesn't want to take any more. Unsure when last dose Continue tamsulosin DVT Prophylaxis -Eliquis Full Code as per previous admissions Patient currently incarcerated at [facility] Will be discharged to [facility] this afternoon Total Time Total Time Spent Total Time Spent (In Minutes): 35 minutes Discharge Plan Discharge Items Patient Disposition: [facility] Reason For Visit: ACUTE RESP FAILURE Discharge Diagnosis: Acute respiratory failure, left lower lobe pneumonia, COPD, atrial fibrillation on Eliquis, hypertension Condition on Discharge: Fair Activity: Resume your previous activity Non-emergency contact: Primary Care Provider Call non-emergency contact if: you have any medication questions and your symptoms worsen Follow-up/Referrals: Cortez BOND [Primary Care Provider] - Diet: Heart Healthy Diet Texture: Easy to Chew Addtl Attending Provider Instructions: Please finish your course of antibiotic-Augmentin and doxycycline. Take oxygen as advised-4 L with ambulation and no oxygen at rest Pending Studies at Discharge: No Stand-Alone Forms: My [facility] [employer] Skilled Items Patient informed of condition?: Yes Discharge Level of Care: Other Communicable Disease: No Discharge Prognosis: Stable Lines: None Urinary Catheter: No Medications and DC Order Prescriptions: New metoprolol tartrate 50 mg Tablet 50 mg PO BID 30 Days Qty: 60 RF: 0 Advanced Probiotic 625 mg (10 billion cell) Capsule 2 cap PO DAILY 15 Days Qty: 30 RF: 0 amoxicillin-pot clavulanate [Augmentin] 875-125 mg tablet 1 tab PO BID Qty: 10 RF: 0 Continued furosemide 20 mg tablet 20 mg PO QAM RF: 0 levalbuterol tartrate [Xopenex HFA] 45 mcg/actuation HFA aerosol inhaler 2 puff inhalation QID PRN (Reason: Shortness Of Breath) RF: 0 celecoxib [Celebrex] 100 mg capsule 100 mg PO QAM RF: 0 Eliquis 5 mg tablet 5 mg PO BID RF: 0 tamsulosin 0.4 mg Capsule 0.4 mg PO QAM RF: 0 Gaviscon Extra Strength 160-105 mg Tablet,Chewable 1 tab PO QID PRN (Reason: Stomach Upset) RF: 0 nitroglycerin [Nitrostat] 0.4 mg Tablet, Sublingual 0.4 mg Sublingual UD PRN (Reason: Chest Pain) RF: 0 lactulose 10 gram/15 mL Solution 30 ml PO BID RF: 0 acetaminophen-codeine 300-30 mg Tablet 2 tab PO BID PRN (Reason: Pain) RF: 0 fluticasone propion-salmeterol [Wixela Inhub] 100-50 mcg/dose Blister With Device 1 inh INHALATION BID RF: 0 pantoprazole 40 mg Tablet,Delayed Release (Dr/Ec) 40 mg PO BID 56 Days Qty: 112 RF: 0 dicyclomine 20 mg Tablet 20 mg PO BID RF: 0 lidocaine-prilocaine 2.5-2.5 % Cream 1 applic topical TID RF: 0 paroxetine HCl [Paxil] 20 mg Tablet 20 mg PO QAM RF: 0 losartan 100 mg Tablet 100 mg PO QAM RF: 0 duloxetine 30 mg Capsule,Delayed Release(Dr/Ec) 30 mg PO HS RF: 0 Eligard (3 month) 22.5 mg Syringe 22.5 mg SUBCUT Q3M RF: 0 Discharge Orders: Discharge Order (Routine); Ordered 05/09/21 Ordered By: Dilip Munoz Admission Data Admit Date/Time: 05/06/21 14:42 Attending Provider: Dilip Munoz Admit Provider: Dilip Munoz Primary Care Provider: Cortez BOND Other Providers: Dilip Munoz Other Interventions: Discharge Summary Assessment (RN) Last Done: 05/09/21 15:20
--- NOTE | 2021-05-23 15:32 | Coding Query ---
SEPSIS To promote full compliance with coding requirements relating to patient care, physician participation is requested in all cases of medical officer uncertainty. Please assist us with the question(s) below: In responding to this query, please exercise your independent professional judgement. The fact that a question is asked does not imply that any particular answer is desired or expected. We appreciate your clarification on this issue. Throughout the medical record, you have clearly documented a localized infection and your patient has clinical evidence of a generalized sepsis or severe sepsis. The term urosepsis is a nonspecific entity and is coded as an UTI. If the patient has sepsis, severe sepsis, from an urinary source or some other source, please clarify in your response below. The medical record reflects the following clinical findings: Pt admitted with pneumonia . H/P documented Sepsis. Please document below the diagnosis (if any) were treated during this inpatient stay. Thanks for your help! ZEB Agustin [facility] ____ ( )Bacteremia (Nonspecific laboratory finding of bacteria in the blood) Specify Organism ( ) Present on Admission ( ) Not present on admission ( ) Unable to clinically determine ( ) Septicemia (Systemic disease associated with the presence of pathogenic microorganisms in the blood): Specify Organism ( ) Present on Admission ( ) Not present on admission ( ) Unable to clinically determine ( ) Sepsis Specify Organism Specify Associated Condition/Diagnosis ( ) Present on Admission ( ) Not present on admission ( ) Unable to clinically determine ( ) Severe Sepsis (Sepsis associated with acute organ dysfunction) Specify Organism Specify Associated Condition/Diagnosis ( ) Present on Admission ( ) Not present on admission () Unable to clinically determine ( ) Septic Shock (Severe sepsis with acute circulatory failure, unexplained by other causes) ( ) Present on Admission ( ) Not present on admission ( ) Unable to clinically determine (+ ) Other, patient has: The patient was managed for:Acute respiratory failure, left lower lobe pneumonia, COPD, atrial fibrillation on Eliquis, hypertension MTDD
== END 2021-05-09 17:55 | DRG 189 ==
LOC: ED 09:19 → EDINP 14:42 → 1E 05-08 07:33

== ENCOUNTER 2022-03-05 18:22 | Inpatient (IN) ==
--- NOTE | 2022-03-05 18:28 | Emergency Department Note ---
Impression & Plan Acute hypoxemic respiratory failure, COPD (chronic obstructive pulmonary disease), Pneumonia ED Provider Note NAME: VALE [id number] ROXY AGE: 81 SEX: M : 1940 ARRIVES VIA: Ambulance INFORMANT: Patient, ED PROVIDER(S): Amando Camacho MD Chief Complaint: Shortness of breath HPI: Patient presents due to concern for shortness of breath as he states began about 3 to 4 days prior. The patient believes it has gotten progressively worse. The patient does have a known history of lung disease and states that he did occasionally use a breathing treatment but this did not much improve his symptoms. The patient does reside at [facility], [place]. The patient has been there since it opened. Patient [place] any chest pains. No leg swelling. Patient states that he has had cough that is occasionally productive. No abdominal pain nausea vomiting. Patient states he does have worsening shortness of breath with activity. Patient was noted to be hypoxic and had been placed on oxygen. The patient does not typically wear oxygen at the [facility]. ROS: See HPI for pertinent positives and negatives. A total of 10 systems were reviewed and otherwise negative. Past medical history: See below Surgical history: See below Social history: See below Physical Exam: GENERAL: NAD, wearing a mask, non-toxic. Nasal cannula in place, wearing alf garb, right upper extremity in handcuffs. EYE EXAM: Normal conjunctiva. PERRL, no anisocoria and EOM's grossly intact w/o pain. NECK: Supple, no nuchal rigidity, no adenopathy, non-tender. No signs of meningismus. FROM of the neck with good chin to chest and neck extension. No stridor. LUNGS: Coarse breath sounds throughout. Normal chest wall mechanics. HEART: Tachycardic and regular, no MRG. ABDOMEN: Abdomen soft, non-tender, normo-active bowel sounds, no masses, no rebound or guarding. BACK: No CVA TTP. SKIN: No rashes and no bruising. UPPER EXTREMITIES: Upper extremities are grossly normal. LOWER EXTREMITIES: Grossly normal, no edema. NEURO EXAM: A&O x3, cranial nerves II-XII grossly intact, normal speech, moves all 4 extremities. Differential diagnoses: Reactive airway disease, pneumonia, pneumothorax, COPD, CHF, infections, cardiac ischemia, pulmonary embolism, musculoskeletal, gastrointestinal, as well as other pathologies. Course: Patient was seen and evaluated the bedside. Full history physical exam was performed. EKG interpreted by me A. fib, rate of 96, wide QRS, left axis deviation no obvious ST elevations. Left branch block pattern. Morphology appears grossly unchanged from comparison May 06, 2021 with exception the patient had a flutter instead of A. fib. Imaging Studies: See Below Cardiac monitoring: An order was placed for continuous cardiac monitoring. The monitor shows a rate of 102 with tachycardic and regular rhythm. MDM: Patient was seen due to concern for shortness of breath. Blood work is obtained along with blood cultures lactate ammonia chest x-ray bio fire. The patient was started on empiric antibiotics and did have MRSA swab completed. Patient was also ordered breathing treatments and steroids. The patient Has a white count 25 with a hemoglobin of 11 mild anemia and mild thrombocytopenia 121. Patient's kidney function was unremarkable. The patient did seem to have some increasing sleepiness and so blood gas had been ordered. I did order BiPAP after speaking with respiratory felt that the patient did have [place] of secretions that we are able to remove with suction and without with the patient. The patient did have an elevated troponin but denies any chest pains. Patient has a negative viral swab. Patient does have cardiomegaly with vascular congestion. I did speak with the on-call hospitalist Dr. Ibarra and the patient was admitted to the medicine service. Patient's ABG showed the patient has chronic hypercarbia but normal pH. Critical Care: I have personally spent 35 minutes of critical care time in direct management of this patient. This includes bedside care, interpretation of diagnostic studies, and testing, discussion with consultants, patient, and family members, and other require inpatient management activities. This 35 minutes is in excess of all separately billable procedures. Past Med/Surg History Medical History Allergic rhinitis Anemia S/p transfusion 05/2020 per records - secondary to GI bleed Anxiety Atrial fibrillation No longer on Coumadin (per records - no AC secondary to thrombocytopenia related to cirrhosis and bleeding risk secondary to falls) Bone lesion Metastasis from prostate cancer, on eligard BPH (benign prostatic hyperplasia) Chronic back pain Chronic pulmonary embolism Dx'ed [address] Cirrhosis COPD (chronic obstructive pulmonary disease) COVID-19 virus infection Tested Covid positive 07/09/20= pt admitted to [facility]- discharged 07/13/20 Depressive disorder Diabetes mellitus, type 2 per record - no medications DVT (deep venous thrombosis) Dx'ed 2017- not a candidate for AC GERD (gastroesophageal reflux disease) H/O: CVA (cerebrovascular accident) SCI states it has been several years ago Per records (12/10/17 cardio consult)- "suspected in October 2017" HTN (hypertension) Mitral regurgitation Peptic ulcer disease 05/2020 bleeding ulcer from Toradol treatment for pain from gallbladder and bone pain- [place] [facility] [place] due to uncontrolled GI bleeding Portal hypertension Presence of IVC filter Prostate cancer SCI emily states that he is refusing treatment for the prostate cancer and it has mets to bone and has alot of pain. (currently 11/29/21 taking Eligard every 3 months) Sciatica Tremor Surgical History H/O right knee surgery History of appendectomy History of cataract surgery bilateral History of cataract surgery Hx of esophagogastroduodenoscopy at least 2---recently 08/06/2020 GI bleed 05/2020 - was lif[facility]lighted to [facility] Family History Mother , in her 80s Myocardial infarction Stroke Father , in her 60s Myocardial infarction Other Family history non-contributory Social History Smoking Status: Current every day smoker Tobacco Type: Cigarettes Age Started Using Tobacco: 11; Hx Alcohol Use: No Hx Substance Use: No Preferred Language: Singaporean Visual Impairment: No Limitations Hearing Ability: Normal Intake Nurse Required: No Beliefs That Will Affect Care: None marital status: Single Current Living Situation: Other Current Living Situation Comment: [facility] current occupational status: unemployed Feels Safe at Home: Yes caffeine: Yes (2 cups/day) during the past year weight has: remained stable Allergies Allergies Allergy/AdvReac Type Severity Reaction Status Date / Time doxazosin [From Cardura] Allergy Unknown Unknown Verified 03/05/22 22:44 prazosin [From Minipress] Allergy Unknown Unknown Verified 03/05/22 22:44 Home Meds Home Medications Medication Instructions Recorded Confirmed Al hyd-Mg tr-alg ac-sod bicarb 80 1 tab PO QID PRN Acid Reflux 03/05/22 03/05/22 mg-20 mg chewable tablet acetaminophen 300 mg-codeine 30 mg 2 tab PO BID PRN Pain 03/05/22 03/05/22 tablet albuterol sulfate 90 mcg/actuation 2 puff inhalation Q4 PRN Shortness 03/05/22 03/05/22 aerosol inhaler Of Breath apixaban 5 mg tablet (Eliquis) 5 mg PO BID 03/05/22 03/05/22 cholecalciferol (vitamin D3) 25 25 mcg PO DAILY 03/05/22 03/05/22 mcg (1,000 unit) tablet (Vitamin D3) duloxetine 60 mg capsule,delayed 60 mg PO HS 03/05/22 03/05/22 release sprinkle ferrous gluconate 324 mg (38 mg 324 mg PO DAILY 03/05/22 03/05/22 iron) tablet fluticasone 250 mcg-salmeterol 50 1 inh inhalation BID 03/05/22 03/05/22 mcg/dose blistr powdr for inhalation (Wixela Inhub) furosemide 20 mg tablet (Lasix) 20 mg PO DAILY 03/05/22 03/05/22 gabapentin 300 mg capsule 300 mg PO HS 03/05/22 03/05/22 hydroxyzine pamoate 50 mg capsule 50 mg PO HS 03/05/22 03/05/22 lactulose 10 gram/15 mL oral 20 g PO BID 03/05/22 03/05/22 solution leuprolide (3 month) 22.5 mg (3 22.5 mg subcut DIRECTED 03/05/22 03/05/22 month) subcutaneous syringe (Eligard) losartan 100 mg tablet 100 mg PO DAILY 03/05/22 03/05/22 nitroglycerin 0.4 mg sublingual 0.4 mg sublingual DIRECTED PRN 03/05/22 03/05/22 tablet (Nitrostat) Chest Pain tamsulosin 0.4 mg capsule 0.4 mg PO DAILY 03/05/22 03/05/22 umeclidinium 62.5 mcg/actuation 1 inh inhalation DAILY 03/05/22 03/05/22 blister powder for inhalation (Incruse Ellipta) Results & Data (ED) Vital Signs Vital Signs - 24 hr 03/05/22 18:30 03/05/22 18:30 03/05/22 18:35 Temperature 37 C Temperature Source Oral Pulse Rate 106 H Pulse Rate [Left Apical] Pulse Rhythm Irregular Pulse Rhythm [Left Apical] Pulse Strength Normal Pulse Strength [Left Apical] Respiratory Rate 34 H Respiratory Effort / Characteristics Short of Breath Respiratory Depth Shallow Respiratory Pattern Tachypnea Regular Blood Pressure 118/69 Blood Pressure [Left Arm] Blood Pressure Mean 85 Blood Pressure Mean [Left Arm] Pulse Oximetry 88 L 88 L Oxygen Delivery Method Room Air Room Air Oxygen Flow Rate Sepsis Recent Fever Within 48 Hours Yes Sepsis New/Unexplained Change in Mental Status No Sepsis Action Taken by Nursing Physician Notified Oxygen Flow Rate - Titration 3 Pulse Oximetry Post Tiitration 92 03/05/22 18:36 03/05/22 18:36 03/05/22 18:26 Temperature Temperature Source Pulse Rate 97 H Pulse Rate [Left Apical] 97 H Pulse Rhythm Pulse Rhythm [Left Apical] Irregular Pulse Strength Pulse Strength [Left Apical] Normal Respiratory Rate 34 H 40 H Respiratory Effort / Characteristics Respiratory Depth Respiratory Pattern Blood Pressure Blood Pressure [Left Arm] Blood Pressure Mean Blood Pressure Mean [Left Arm] Pulse Oximetry 92 92 Oxygen Delivery Method Nasal Cannula Oxygen Flow Rate 3 3 Sepsis Recent Fever Within 48 Hours Sepsis New/Unexplained Change in Mental Status Sepsis Action Taken by Nursing Oxygen Flow Rate - Titration Pulse Oximetry Post Tiitration 03/05/22 18:30 03/05/22 18:51 03/05/22 18:51 Temperature Temperature Source Pulse Rate 99 H 90 Pulse Rate [Left Apical] Pulse Rhythm Pulse Rhythm [Left Apical] Pulse Strength Pulse Strength [Left Apical] Respiratory Rate 36 H 39 H Respiratory Effort / Characteristics Respiratory Depth Respiratory Pattern Blood Pressure 129/64 Blood Pressure [Left Arm] Blood Pressure Mean 85 Blood Pressure Mean [Left Arm] Pulse Oximetry 92 93 Oxygen Delivery Method Nasal Cannula Nasal Cannula Oxygen Flow Rate 3 3 Sepsis Recent Fever Within 48 Hours Sepsis New/Unexplained Change in Mental Status Sepsis Action Taken by Nursing Oxygen Flow Rate - Titration Pulse Oximetry Post Tiitration 03/05/22 19:00 03/05/22 20:10 03/05/22 21:04 Temperature Temperature Source Pulse Rate 106 H Pulse Rate [Left Apical] 102 H 101 H Pulse Rhythm Pulse Rhythm [Left Apical] Regular Regular Pulse Strength Pulse Strength [Left Apical] Normal Normal Respiratory Rate 38 H 28 H 35 H Respiratory Effort / Characteristics Non-Labored Respiratory Depth Normal Respiratory Pattern Blood Pressure Blood Pressure [Left Arm] 124/67 124/75 Blood Pressure Mean Blood Pressure Mean [Left Arm] 86 91 Pulse Oximetry 95 94 91 Oxygen Delivery Method Nasal Cannula Nasal Cannula Room Air Oxygen Flow Rate 3 3 Sepsis Recent Fever Within 48 Hours Sepsis New/Unexplained Change in Mental Status Sepsis Action Taken by Nursing Oxygen Flow Rate - Titration Pulse Oximetry Post Tiitration 03/05/22 22:30 03/05/22 21:31 03/05/22 21:15 Temperature Temperature Source Pulse Rate Pulse Rate [Left Apical] 101 H 89 Pulse Rhythm Pulse Rhythm [Left Apical] Irregular Regular Pulse Strength Pulse Strength [Left Apical] Normal Normal Respiratory Rate 33 H 35 H Respiratory Effort / Characteristics Non-Labored Respiratory Depth Normal Respiratory Pattern Blood Pressure Blood Pressure [Left Arm] 135/85 141/69 H Blood Pressure Mean Blood Pressure Mean [Left Arm] 101 93 Pulse Oximetry 98 98 86 L Oxygen Delivery Method Oxymask Oxymask Nasal Cannula Oxygen Flow Rate 6 10 6 Sepsis Recent Fever Within 48 Hours Sepsis New/Unexplained Change in Mental Status Sepsis Action Taken by Nursing Oxygen Flow Rate - Titration Pulse Oximetry Post Tiitration 03/05/22 21:32 Temperature Temperature Source Pulse Rate Pulse Rate [Left Apical] Pulse Rhythm Pulse Rhythm [Left Apical] Pulse Strength Pulse Strength [Left Apical] Respiratory Rate Respiratory Effort / Characteristics Respiratory Depth Respiratory Pattern Blood Pressure Blood Pressure [Left Arm] Blood Pressure Mean Blood Pressure Mean [Left Arm] Pulse Oximetry 86 L Oxygen Delivery Method Nasal Cannula Oxymask Oxygen Flow Rate 6 Sepsis Recent Fever Within 48 Hours Sepsis New/Unexplained Change in Mental Status Sepsis Action Taken by Nursing Oxygen Flow Rate - Titration 10 Pulse Oximetry Post Tiitration Home Medications Current Medication List: was personally reviewed by me Laboratory Data Attestation: I reviewed the patient's lab results. Result diagrams: 03/05/22 18:38 03/05/22 18:38 Lab Results 03/05/22 03/05/22 03/05/22 Range/Units 18:38 18:38 18:38 WBC 25.98 H (4.8-10.8) K/ul RBC 3.31 L (4.63-6.08) M/uL Hgb 11.1 L (14.0-18.0) g/dl Hct 33.5 L (40.1-51.0) % MCV 101.2 H (80.0-100.0) fL MCH 33.5 (25.0-34.0) pg MCHC 33.1 (32.0-36.0) g/dL RDW Std Deviation 61.8 H (36.4-46.3) fL RDW Coeff of Charo 16.7 H (11.5-14.5) % Plt Count 121 L (130-400) K/uL MPV 11.5 (9.4-12.4) fL Immature Gran % (Auto) 0.8 % Neut % (Auto) 88.0 % Lymph % (Auto) 3.2 % Sutton % (Auto) 7.6 % Eos % (Auto) 0.0 % Baso % (Auto) 0.4 % Neut # (Auto) 22.86 H (1.4-6.5) K/uL Lymph # (Auto) 0.82 L (1.2-3.4) K/uL Sutton # (Auto) 1.98 H (0.24-0.82) K/uL Eos # (Auto) 0.01 (0-0.50) K/uL Baso # (Auto) 0.11 (0-0.2) K/uL Immature Gran # (Auto) 0.20 H (0.00-0.02) K/uL PT 13.6 H (9.0-12.0) Seconds INR 1.3 H (0.9-1.1) APTT 32.8 H (21.0-31.0) Seconds PTT Ratio 1.2 ABG pH (7.35-7.45) ABG pCO2 (35-46) mmHg ABG pO2 (80-95) mmHg ABG HCO3 (19-24) mmol/L ABG O2 Saturation (90-95) % ABG Base Excess (-9-1.8) mEq/L Roddy Test (Pos) Oxygen Given Sodium 138 (136-145) mmol/L Potassium 4.2 (3.5-5.1) mmol/L Chloride 107 (98-107) mmol/L Carbon Dioxide 23 (21-32) mmol/L Anion Gap 8 (3-11) BUN 21 (6-23) mg/dl Creatinine 1.01 (0.6-1.4) mg/dl Est Cr Clr Drug Dosing 67.0 ml/min Est GFR ( Amer) 81.6 ml/min Est GFR (Non-Af Amer) 70.4 ml/min BUN/Creatinine Ratio 20.8 H (10-20) Glucose 74 (70-99(Fasting)) mg/dl Lactate (0.4-2.0) mmol/L Calcium 9.8 (8.5-10.1) mg/dl Magnesium 1.7 (1.7-2.4) mg/dl Total Bilirubin 2.8 H (0.2-1.0) mg/dl AST 27 (13-39) U/L ALT 12 (7-52) U/L Alkaline Phosphatase 95 (34-104) U/L Ammonia (18-72) umol/L Troponin I High Sens 195.4 H* (0-20) pg/ml B-Natriuretic Peptide (0-100) pg/ml Total Protein 6.0 (6.0-8.3) gm/dl Albumin 3.3 L (3.4-5.0) gm/dl Globulin 2.7 (2.5-4.0) gm/dl Albumin/Globulin Ratio 1.2 (0.9-2) TSH (0.300-4.500) uIu/ml Nasal Screen MRSA (PCR) (Negative) Adenovirus (PCR) (NotDetected) B. pertussis DNA (PCR) (NotDetected) B.parapertussis DNA PCR (NotDetected) C. pneumoniae DNA (PCR) (NotDetected) Coronavirus OC43 (PCR) (NotDetected) Coronavirus HKU1 (PCR) (NotDetected) Coronavirus 229E (PCR) (NotDetected) SARS-CoV-2 (PCR) (NotDetected) Coronavirus NL63 (PCR) (NotDetected) Human Metapneumovir PCR (NotDetected) Influenza Type A (PCR) (NotDetected) Influenza Type B (PCR) (NotDetected) M. pneumoniae (PCR) (NotDetected) Parainfluenza 1 (PCR) (NotDetected) Parainfluenza 2 (PCR) (NotDetected) Parainfluenza 3 (PCR) (NotDetected) Parainfluenza 4 (PCR) (NotDetected) RSV (PCR) (NotDetected) Entero/Rhino (PCR) (NotDetected) 03/05/22 03/05/22 03/05/22 Range/Units 18:44 19:35 19:35 WBC (4.8-10.8) K/ul RBC (4.63-6.08) M/uL Hgb (14.0-18.0) g/dl Hct (40.1-51.0) % MCV (80.0-100.0) fL MCH (25.0-34.0) pg MCHC (32.0-36.0) g/dL RDW Std Deviation (36.4-46.3) fL RDW Coeff of Charo (11.5-14.5) % Plt Count (130-400) K/uL MPV (9.4-12.4) fL Immature Gran % (Auto) % Neut % (Auto) % Lymph % (Auto) % Sutton % (Auto) % Eos % (Auto) % Baso % (Auto) % Neut # (Auto) (1.4-6.5) K/uL Lymph # (Auto) (1.2-3.4) K/uL Sutton # (Auto) (0.24-0.82) K/uL Eos # (Auto) (0-0.50) K/uL Baso # (Auto) (0-0.2) K/uL Immature Gran # (Auto) (0.00-0.02) K/uL PT (9.0-12.0) Seconds INR (0.9-1.1) APTT (21.0-31.0) Seconds PTT Ratio ABG pH (7.35-7.45) ABG pCO2 (35-46) mmHg ABG pO2 (80-95) mmHg ABG HCO3 (19-24) mmol/L ABG O2 Saturation (90-95) % ABG Base Excess (-9-1.8) mEq/L Roddy Test (Pos) Oxygen Given Sodium (136-145) mmol/L Potassium (3.5-5.1) mmol/L Chloride (98-107) mmol/L Carbon Dioxide (21-32) mmol/L Anion Gap (3-11) BUN (6-23) mg/dl Creatinine (0.6-1.4) mg/dl Est Cr Clr Drug Dosing ml/min Est GFR ( Amer) ml/min Est GFR (Non-Af Amer) ml/min BUN/Creatinine Ratio (10-20) Glucose (70-99(Fasting)) mg/dl Lactate 2.5 H* (0.4-2.0) mmol/L Calcium (8.5-10.1) mg/dl Magnesium (1.7-2.4) mg/dl Total Bilirubin (0.2-1.0) mg/dl AST (13-39) U/L ALT (7-52) U/L Alkaline Phosphatase (34-104) U/L Ammonia 35.0 (18-72) umol/L Troponin I High Sens (0-20) pg/ml B-Natriuretic Peptide (0-100) pg/ml Total Protein (6.0-8.3) gm/dl Albumin (3.4-5.0) gm/dl Globulin (2.5-4.0) gm/dl Albumin/Globulin Ratio (0.9-2) TSH (0.300-4.500) uIu/ml Nasal Screen MRSA (PCR) (Negative) Adenovirus (PCR) Not Detected (NotDetected) B. pertussis DNA (PCR) Not Detected (NotDetected) B.parapertussis DNA PCR Not Detected (NotDetected) C. pneumoniae DNA (PCR) Not Detected (NotDetected) Coronavirus OC43 (PCR) Not Detected (NotDetected) Coronavirus HKU1 (PCR) Not Detected (NotDetected) Coronavirus 229E (PCR) Not Detected (NotDetected) SARS-CoV-2 (PCR) Not Detected (NotDetected) Coronavirus NL63 (PCR) Not Detected (NotDetected) Human Metapneumovir PCR Not Detected (NotDetected) Influenza Type A (PCR) Not Detected (NotDetected) Influenza Type B (PCR) Not Detected (NotDetected) M. pneumoniae (PCR) Not Detected (NotDetected) Parainfluenza 1 (PCR) Not Detected (NotDetected) Parainfluenza 2 (PCR) Not Detected (NotDetected) Parainfluenza 3 (PCR) Not Detected (NotDetected) Parainfluenza 4 (PCR) Not Detected (NotDetected) RSV (PCR) Not Detected (NotDetected) Entero/Rhino (PCR) Not Detected (NotDetected) 03/05/22 03/05/22 03/05/22 Range/Units 19:37 20:46 20:47 WBC (4.8-10.8) K/ul RBC (4.63-6.08) M/uL Hgb (14.0-18.0) g/dl Hct (40.1-51.0) % MCV (80.0-100.0) fL MCH (25.0-34.0) pg MCHC (32.0-36.0) g/dL RDW Std Deviation (36.4-46.3) fL RDW Coeff of Charo (11.5-14.5) % Plt Count (130-400) K/uL MPV (9.4-12.4) fL Immature Gran % (Auto) % Neut % (Auto) % Lymph % (Auto) % Sutton % (Auto) % Eos % (Auto) % Baso % (Auto) % Neut # (Auto) (1.4-6.5) K/uL Lymph # (Auto) (1.2-3.4) K/uL Sutton # (Auto) (0.24-0.82) K/uL Eos # (Auto) (0-0.50) K/uL Baso # (Auto) (0-0.2) K/uL Immature Gran # (Auto) (0.00-0.02) K/uL PT (9.0-12.0) Seconds INR (0.9-1.1) APTT (21.0-31.0) Seconds PTT Ratio ABG pH (7.35-7.45) ABG pCO2 (35-46) mmHg ABG pO2 (80-95) mmHg ABG HCO3 (19-24) mmol/L ABG O2 Saturation (90-95) % ABG Base Excess (-9-1.8) mEq/L Roddy Test (Pos) Oxygen Given Sodium (136-145) mmol/L Potassium (3.5-5.1) mmol/L Chloride (98-107) mmol/L Carbon Dioxide (21-32) mmol/L Anion Gap (3-11) BUN (6-23) mg/dl Creatinine (0.6-1.4) mg/dl Est Cr Clr Drug Dosing ml/min Est GFR ( Amer) ml/min Est GFR (Non-Af Amer) ml/min BUN/Creatinine Ratio (10-20) Glucose (70-99(Fasting)) mg/dl Lactate 2.0 (0.4-2.0) mmol/L Calcium (8.5-10.1) mg/dl Magnesium (1.7-2.4) mg/dl Total Bilirubin (0.2-1.0) mg/dl AST (13-39) U/L ALT (7-52) U/L Alkaline Phosphatase (34-104) U/L Ammonia (18-72) umol/L Troponin I High Sens (0-20) pg/ml B-Natriuretic Peptide (0-100) pg/ml Total Protein (6.0-8.3) gm/dl Albumin (3.4-5.0) gm/dl Globulin (2.5-4.0) gm/dl Albumin/Globulin Ratio (0.9-2) TSH 0.902 (0.300-4.500) uIu/ml Nasal Screen MRSA (PCR) Negative (Negative) Adenovirus (PCR) (NotDetected) B. pertussis DNA (PCR) (NotDetected) B.parapertussis DNA PCR (NotDetected) C. pneumoniae DNA (PCR) (NotDetected) Coronavirus OC43 (PCR) (NotDetected) Coronavirus HKU1 (PCR) (NotDetected) Coronavirus 229E (PCR) (NotDetected) SARS-CoV-2 (PCR) (NotDetected) Coronavirus NL63 (PCR) (NotDetected) Human Metapneumovir PCR (NotDetected) Influenza Type A (PCR) (NotDetected) Influenza Type B (PCR) (NotDetected) M. pneumoniae (PCR) (NotDetected) Parainfluenza 1 (PCR) (NotDetected) Parainfluenza 2 (PCR) (NotDetected) Parainfluenza 3 (PCR) (NotDetected) Parainfluenza 4 (PCR) (NotDetected) RSV (PCR) (NotDetected) Entero/Rhino (PCR) (NotDetected) 03/05/22 03/05/22 03/05/22 Range/Units 20:47 20:47 20:47 WBC (4.8-10.8) K/ul RBC (4.63-6.08) M/uL Hgb (14.0-18.0) g/dl Hct (40.1-51.0) % MCV (80.0-100.0) fL MCH (25.0-34.0) pg MCHC (32.0-36.0) g/dL RDW Std Deviation (36.4-46.3) fL RDW Coeff of Charo (11.5-14.5) % Plt Count (130-400) K/uL MPV (9.4-12.4) fL Immature Gran % (Auto) % Neut % (Auto) % Lymph % (Auto) % Sutton % (Auto) % Eos % (Auto) % Baso % (Auto) % Neut # (Auto) (1.4-6.5) K/uL Lymph # (Auto) (1.2-3.4) K/uL Sutton # (Auto) (0.24-0.82) K/uL Eos # (Auto) (0-0.50) K/uL Baso # (Auto) (0-0.2) K/uL Immature Gran # (Auto) (0.00-0.02) K/uL PT (9.0-12.0) Seconds INR (0.9-1.1) APTT (21.0-31.0) Seconds PTT Ratio ABG pH 7.38 (7.35-7.45) ABG pCO2 40 (35-46) mmHg ABG pO2 62 L (80-95) mmHg ABG HCO3 24 (19-24) mmol/L ABG O2 Saturation 91.6 (90-95) % ABG Base Excess -1.3 (-9-1.8) mEq/L Roddy Test Pos (Pos) Oxygen Given 5L Sodium (136-145) mmol/L Potassium (3.5-5.1) mmol/L Chloride (98-107) mmol/L Carbon Dioxide (21-32) mmol/L Anion Gap (3-11) BUN (6-23) mg/dl Creatinine (0.6-1.4) mg/dl Est Cr Clr Drug Dosing ml/min Est GFR ( Amer) ml/min Est GFR (Non-Af Amer) ml/min BUN/Creatinine Ratio (10-20) Glucose (70-99(Fasting)) mg/dl Lactate (0.4-2.0) mmol/L Calcium (8.5-10.1) mg/dl Magnesium (1.7-2.4) mg/dl Total Bilirubin (0.2-1.0) mg/dl AST (13-39) U/L ALT (7-52) U/L Alkaline Phosphatase (34-104) U/L Ammonia (18-72) umol/L Troponin I High Sens 192.0 H* (0-20) pg/ml B-Natriuretic Peptide 2163 H (0-100) pg/ml Total Protein (6.0-8.3) gm/dl Albumin (3.4-5.0) gm/dl Globulin (2.5-4.0) gm/dl Albumin/Globulin Ratio (0.9-2) TSH (0.300-4.500) uIu/ml Nasal Screen MRSA (PCR) (Negative) Adenovirus (PCR) (NotDetected) B. pertussis DNA (PCR) (NotDetected) B.parapertussis DNA PCR (NotDetected) C. pneumoniae DNA (PCR) (NotDetected) Coronavirus OC43 (PCR) (NotDetected) Coronavirus HKU1 (PCR) (NotDetected) Coronavirus 229E (PCR) (NotDetected) SARS-CoV-2 (PCR) (NotDetected) Coronavirus NL63 (PCR) (NotDetected) Human Metapneumovir PCR (NotDetected) Influenza Type A (PCR) (NotDetected) Influenza Type B (PCR) (NotDetected) M. pneumoniae (PCR) (NotDetected) Parainfluenza 1 (PCR) (NotDetected) Parainfluenza 2 (PCR) (NotDetected) Parainfluenza 3 (PCR) (NotDetected) Parainfluenza 4 (PCR) (NotDetected) RSV (PCR) (NotDetected) Entero/Rhino (PCR) (NotDetected) Administered Medications Magnesium Sulfate/Dextrose (Magnesium Sulfate / D5w) 1 gm in 100 mls @ 50 mls/hr IV Q2H STEPHANE Stop: 03/06/22 00:29 Last Infusion: 03/05/22 23:19 Dose: 0 mls/hr Documented By: Admin: 03/05/22 22:28 Dose: 50 mls/hr Documented By: Infusion: 03/05/22 22:28 Dose: 50 mls/hr Documented By: Admin: 03/05/22 21:05 Dose: 50 mls/hr Documented By: TW Discontinued Medications Albuterol (Albut/Ipratrop 3mg/0.5mg Neb 3 Ml Vial) 6 ml INH NOW STA Stop: 03/05/22 18:32 Last Admin: 03/05/22 18:52 Dose: 6 ml Documented By: LONNY Furosemide (Furosemide Inj 20 Mg/2 Ml Vial) 20 mg IV ONE STA Stop: 03/05/22 21:59 Last Admin: 03/05/22 22:26 Dose: 20 mg Documented By: LONNY Sodium Chloride (Nss) 500 mls @ 999 mls/hr IV .Q31M STA Stop: 03/05/22 19:01 Last Infusion: 03/05/22 19:26 Dose: 0 mls/hr Documented By: Admin: 03/05/22 18:52 Dose: 999 mls/hr Documented By: LONNY Piperacillin Sod/Tazobactam Sod (Zosyn) 4.5 gm in 120 mls @ 240 mls/hr IV NOW ONE Stop: 03/05/22 19:00 Last Infusion: 03/05/22 20:12 Dose: 0 mls/hr Documented By: Admin: 03/05/22 19:40 Dose: 240 mls/hr Documented By: LONNY Doxycycline Hyclate 100 mg/ (Dextrose) 110 mls @ 50 mls/hr IV NOW STA Stop: 03/05/22 22:37 Last Infusion: 03/05/22 23:19 Dose: 0 mls/hr Documented By: Admin: 03/05/22 21:04 Dose: 50 mls/hr Documented By: LONNY Albumin Human (Albumin 25% 100 Ml) 25 gm in 100 mls @ 50 mls/hr IV ONE STA Stop: 03/05/22 23:57 Last Admin: 03/05/22 22:26 Dose: 50 mls/hr Documented By: LONNY Methylprednisolone (Methylprednisolone 125 Mg/2 Ml Vial) 125 mg IV NOW STA Stop: 03/05/22 18:32 Last Admin: 03/05/22 18:52 Dose: 125 mg Documented By: LONNY Imaging Data Radiologist's Impression: Chest X-Ray 03/05/22 18:31 SINGLE VIEW CHEST CLINICAL HISTORY: Dyspnea. FINDINGS: An AP, portable, upright chest radiograph is compared to study dated 05/06/2021. The heart is markedly enlarged noting atherosclerotic calcification of the thoracic aorta. There is pulmonary vascular congestion. Chronic reticular thickening similar to previous. Airspace consolidation is noted at the left lung base. No large pleural effusion or pneumothorax is identified. The skeletal structures are osteopenic. The bony thorax is grossly intact. IMPRESSION: 1. Cardiomegaly with pulmonary vascular congestion. 2. Airspace consolidation is seen at the left lung base. Correlate clinically for evidence of pneumonia/aspiration pneumonitis. Radiographic follow-up to resolution is recommended. ACT 112: Negative or not required by law. Electronically signed by: Bud Scruggs M.D. 03/05/2022 8:11 PM Discharge Plan Visit Data Chief Complaint: Shortness of Breath/Dyspnea ED Provider: Amando Camacho Discharge Problem: Acute hypoxemic respiratory failure, COPD (chronic obstructive pulmonary disease), Pneumonia Discharge Instructions Interventions: ED Discharge Assessment Last Done: 03/05/22 23:20
[2022-03-05] MEDS ORDERED: SODIUM CHLORIDE 0.9% 500 ML IV STA (18:31)
[2022-03-05] MEDS ORDERED: methylPREDNISolone 125 MG/2 ML VIAL IV STA (18:31)
[2022-03-05] MEDS ORDERED: PIPERACILLIN/TAZOBACTAM 4.5 GM/120 ML BAG IV ONE (18:31)
[2022-03-05] MEDS ORDERED: ALBUT/IPRATROP 3MG/0.5MG NEB 3 ML VIAL INH STA (18:31)
[2022-03-05 19:04] LABS: Hematocrit (blood only) 33.5 % (40.1-51.0); Hemoglobin 11.1 g/dl (14.0-18.0); Mean Corpuscular Hemoglobin 33.5 pg (25.0-34.0); Mean Corpuscular Hgb Conc 33.1 g/dL (32.0-36.0); Mean Corpuscular Volume 101.2 fL (80.0-100.0); Mean Platelet Volume 11.5 fL (9.4-12.4); Platelet Count 121 K/uL (130-400); RDW Coefficient of Variation 16.7 % (11.5-14.5); RDW Standard Deviation 61.8 fL (36.4-46.3); Red Blood Count 3.31 M/uL (4.63-6.08); White Blood Count 25.98 K/ul (4.8-10.8)
[2022-03-05 19:15] LABS: INR 1.3 (0.9-1.1); Partial Thromboplastin Ratio 1.2; Partial Thromboplastin Time 32.8 Seconds (21.0-31.0); Prothrombin Time 13.6 Seconds (9.0-12.0)
[2022-03-05 19:30] LABS: Albumin Globulin Ratio 1.2 (0.9-2); Albumin Level 3.3 gm/dl (3.4-5.0); BUN Creatinine Ratio 20.8 (10-20); Bilirubin,Total 2.8 mg/dl (0.2-1.0); Calcium 9.8 mg/dl (8.5-10.1); Est GFR (African American) 81.6 ml/min; Est GFR (Non-African American) 70.4 ml/min; Globulin 2.7 gm/dl (2.5-4.0); Magnesium 1.7 mg/dl (1.7-2.4); Potassium 4.2 mmol/L (3.5-5.1)
[2022-03-05 19:31] LABS: Basophils # (auto) 0.11 K/uL (0-0.2); Basophils % (auto) 0.4 %; Eosinophils # (auto) 0.01 K/uL (0-0.50); Immature Granulocytes % (auto) 0.8 %; Lymphocytes # (auto) 0.82 K/uL (1.2-3.4); Lymphocytes % (auto) 3.2 %; Monocytes # (auto) 1.98 K/uL (0.24-0.82); Monocytes % (auto) 7.6 %; Neutrophils # (auto) 22.86 K/uL (1.4-6.5)
[2022-03-05 19:42] LABS: Troponin I High Sensitivity 195.4 pg/ml (0-20)
--- NOTE | 2022-03-05 20:12 | XRay Report ---
SINGLE VIEW CHEST CLINICAL HISTORY: Dyspnea. FINDINGS: An AP, portable, upright chest radiograph is compared to study dated 05/06/2021. The heart is markedly enlarged noting atherosclerotic calcification of the thoracic aorta. There is pulmonary v ascular congestion. Chronic reticular thickening similar to previous. Airspace consolidation is noted at the left lung base. No large pleural effusion or pneumothorax is identified. The skeletal structu res are osteopenic. The bony thorax is grossly intact. IMPRESSION: 1. Cardiomegaly with pulmonary vascular congestion. 2. Airspace consolidation is seen at the left lung base. Correlate clinically for evidence of pneumon ia/aspiration pneumonitis. Radiographic follow-up to resolution is recommended. ACT 112: Negative or not required by law. Electronically signed by: Bud Scruggs M.D. 03/05/2022 8:11 PM
[2022-03-05] MEDS ORDERED: DOXYCYCLINE HYCLATE 100 MG in DEXTROSE 5% 100 ML IV STA (20:26)
--- NOTE | 2022-03-05 20:26 | History & Physical Report ---
Date of Service March 05, 2022 Assessment & Plan (1) Acute hypoxemic respiratory failure: Plan: Multifactorial : Secondary to COPD exacerbation secondary to HCAP ([facility] inmate), possible aspiration (severe sepsis, SIRS plus hypoxemia, encephalopathy, lactic acidosis) Mild CHF, hx diastolic dysfunction, rule out progression of valvular heart disease Troponin elevation secondary to illness hypertension, stable A. fib, history of PE DVT on Eliquis alcoholic cirrhosis, no overt decompensation metastatic prostate cancer on Eligard DM2 diet-controlled, patient currently borderline hypoglycemic, hemoglobin A1c of 5 from October 2020 chronic anemia, hemoglobin at baseline chronic thrombocytopenia secondary to liver disease mood disorder, past tobacco/alcohol abuse. PCU supplemental O2 CS, Zosyn, doxycycline Aspiration precautions, swallow eval nebs RTC, prednisone course Pulmonary consult if without improvement Appropriate to hold neuropsychotropic meds until patient breathing stable and patient more awake. Follow troponin Update TTE Lasix albumin 1 dose given equivocal volume status (pulmonary congestion with lactic acidosis) Basal bolus insulin, ISS BG goal 1 10-1 40, carb count coverage DVT prophylaxis. [employer] Full code Total critical care time was 40 minutes. Text document was generated using [employer]ango voice recognition software. It may contain grammatical or spelling errors. Kindly contact undersigned for clarification of any documentation item in question. History of Present Illness Chief Complaint: Shortness of breath Primary Care Provider: RONDA Toro History obtained from patient and records. Medical history significant for chronic diastolic heart failure (EF 55%, TTE 2020), moderate MR, hypertension, A. 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 Last confinement May 2021 for respiratory failure secondary to pneumonia. 3 days history of junky cough symptoms. Patient not sure about COVID-19 contacts. Has not received COVID-19 vaccination. Admits to coughing with meals/water intake if not careful. No chest pain. Worsening shortness of breath. Some fluid retention as per patient. Patient noted to have shallow breathing today, O2 sats 88 on room air. Patient slightly drowsy. Denies headache symptoms. Patient brought to the ER for evaluation. Zosyn, neb treatment, Solu-Medrol, administered at the ER. MEDICAL HISTORY: As above. 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, [facility] inmate Allergies Allergy/AdvReac Type Severity Reaction Status Date / Time doxazosin [From Cardura] Allergy Unknown Unknown Verified 03/05/22 22:44 prazosin [From Minipress] Allergy Unknown Unknown Verified 03/05/22 22:44 Home Medications Medication Instructions Recorded Confirmed Type Al hyd-Mg tr-alg ac-sod bicarb 80 1 tab PO QID PRN Acid Reflux 03/05/22 03/05/22 History mg-20 mg chewable tablet acetaminophen 300 mg-codeine 30 mg 2 tab PO BID PRN Pain 03/05/22 03/05/22 History tablet albuterol sulfate 90 mcg/actuation 2 puff inhalation Q4 PRN Shortness 03/05/22 03/05/22 History aerosol inhaler Of Breath apixaban 5 mg tablet (Eliquis) 5 mg PO BID 03/05/22 03/05/22 History cholecalciferol (vitamin D3) 25 25 mcg PO DAILY 03/05/22 03/05/22 History mcg (1,000 unit) tablet (Vitamin D3) duloxetine 60 mg capsule,delayed 60 mg PO HS 03/05/22 03/05/22 History release sprinkle ferrous gluconate 324 mg (38 mg 324 mg PO DAILY 03/05/22 03/05/22 History iron) tablet fluticasone 250 mcg-salmeterol 50 1 inh inhalation BID 03/05/22 03/05/22 History mcg/dose blistr powdr for inhalation (Wixela Inhub) furosemide 20 mg tablet (Lasix) 20 mg PO DAILY 03/05/22 03/05/22 History gabapentin 300 mg capsule 300 mg PO HS 03/05/22 03/05/22 History hydroxyzine pamoate 50 mg capsule 50 mg PO HS 03/05/22 03/05/22 History lactulose 10 gram/15 mL oral 20 g PO BID 03/05/22 03/05/22 History solution leuprolide (3 month) 22.5 mg (3 22.5 mg subcut DIRECTED 03/05/22 03/05/22 History month) subcutaneous syringe (Gabby) losartan 100 mg tablet 100 mg PO DAILY 03/05/22 03/05/22 History nitroglycerin 0.4 mg sublingual 0.4 mg sublingual DIRECTED PRN 03/05/22 03/05/22 History tablet (Nitrostat) Chest Pain tamsulosin 0.4 mg capsule 0.4 mg PO DAILY 03/05/22 03/05/22 History umeclidinium 62.5 mcg/actuation 1 inh inhalation DAILY 03/05/22 03/05/22 History blister powder for inhalation (Incruse Ellipta) Past Med/Surg History Medical History Allergic rhinitis Anemia S/p transfusion 05/2020 per records - secondary to GI bleed Anxiety Atrial fibrillation No longer on Coumadin (per records - no AC secondary to thrombocytopenia related to cirrhosis and bleeding risk secondary to falls) Bone lesion Metastasis from prostate cancer, on eligard BPH (benign prostatic hyperplasia) Chronic back pain Chronic pulmonary embolism Dx'ed [address] Cirrhosis COPD (chronic obstructive pulmonary disease) COVID-19 virus infection Tested Covid positive 07/09/20= pt admitted to [facility]- discharged 07/13/20 Depressive disorder Diabetes mellitus, type 2 per record - no medications DVT (deep venous thrombosis) Dx'ed 2018- not a candidate for AC GERD (gastroesophageal reflux disease) H/O: CVA (cerebrovascular accident) SCI states it has been several years ago Per records (12/10/17 cardio consult)- "suspected in October 2017" HTN (hypertension) Mitral regurgitation Peptic ulcer disease 05/2020 bleeding ulcer from Toradol treatment for pain from gallbladder and bone pain- was transferred to [facility] 05/22/20 due to uncontrolled GI bleeding Portal hypertension Presence of IVC filter Prostate cancer SCI emily states that he is refusing treatment for the prostate cancer and it has mets to bone and has alot of pain. (currently 11/29/21 taking Eligard every 3 months) Sciatica Tremor Surgical History H/O right knee surgery History of appendectomy History of cataract surgery bilateral History of cataract surgery Hx of esophagogastroduodenoscopy at least 2---recently 08/06/2020 GI bleed 05/2020 - was lifeflighted to [facility] Family History Mother , in her 80s Myocardial infarction Stroke Father , in her 60s Myocardial infarction Other Family history non-contributory Social History Smoking Status: Current some day smoker Tobacco Type: Cigarettes Age Started Using Tobacco: 11; Do You Dip or Chew Tobacco: No; Tobacco Cessation Education Requested by Patient: No Hx Alcohol Use: No Hx Substance Use: No Preferred Language: Japanese Communication Ability: Effective Visual Impairment: No Limitations Hearing Ability: Normal Machine Preservative Filler Required: No Beliefs That Will Affect Care: None marital status: Single Current Living Situation: Other Current Living Situation Comment: Inmate at [facility] current occupational status: unemployed Other Information That Helps Us Care for You: No Feels Safe at Home: Yes Safety Concerns: Feels Safe At This Time caffeine: Yes (2 cups/day) during the past year weight has: remained stable Assistive Devices: Wheelchair Review of Systems Review of Systems: As per HPI, all other systems reviewed and negative Physical Exam Physical Exam: GENERAL: Uncomfortable, respiratory distress SKIN: Pallor,, warm HEENT: Pale palpebral conjunctivae, no ptosis, dry buccal mucosa, O2 mask in place NECK : Supple, no tenderness CHEST : Bilateral rhonchi, expiratory wheezes, no tenderness HEART : Tachycardic, irregular, no obvious murmurs ABDOMEN: Some distention, nontender EXTREMITIES : Minimal LE swelling, no LE tenderness, no other conspicuous deformities noted NEUROLOGIC : Coherent, no facial asymmetry, no other gross focality Results & Data Results & Data ([facility]) Vital Signs (Past 12 Hours) Vital Signs Temp Pulse Pulse Resp BP BP Pulse Ox 03/05/22 20:10 102 H 28 H 124/67 94 03/05/22 19:00 106 H 38 H 95 03/05/22 18:51 129/64 03/05/22 18:51 90 39 H 93 03/05/22 18:30 99 H 36 H 92 03/05/22 18:26 97 H 40 H 92 03/05/22 18:36 97 H 34 H 03/05/22 18:36 92 03/05/22 18:35 88 L 03/05/22 18:30 37 C 106 H 34 H 118/69 88 L O2 Del Method O2 Flow Rate 03/05/22 20:10 Nasal Cannula 3 03/05/22 19:00 Nasal Cannula 3 03/05/22 18:51 03/05/22 18:51 Nasal Cannula 3 03/05/22 18:30 Nasal Cannula 3 03/05/22 18:26 3 03/05/22 18:36 03/05/22 18:36 Nasal Cannula 3 03/05/22 18:35 Room Air 03/05/22 18:30 Room Air Laboratory Results Laboratory Results WBC 25.98 K/ul (4.8-10.8) H 03/05/22 18:38 RBC 3.31 M/uL (4.63-6.08) L 03/05/22 18:38 Hgb 11.1 g/dl (14.0-18.0) L 03/05/22 18:38 Hct 33.5 % (40.1-51.0) L 03/05/22 18:38 MCV 101.2 fL (80.0-100.0) H 03/05/22 18:38 MCH 33.5 pg (25.0-34.0) 03/05/22 18:38 MCHC 33.1 g/dL (32.0-36.0) 03/05/22 18:38 RDW Std Deviation 61.8 fL (36.4-46.3) H 03/05/22 18:38 RDW Coeff of Charo 16.7 % (11.5-14.5) H 03/05/22 18:38 Plt Count 121 K/uL (130-400) L 03/05/22 18:38 MPV 11.5 fL (9.4-12.4) 03/05/22 18:38 Immature Gran % (Auto) 0.8 % 03/05/22 18:38 Neut % (Auto) 88.0 % 03/05/22 18:38 Lymph % (Auto) 3.2 % 03/05/22 18:38 Luce % (Auto) 7.6 % 03/05/22 18:38 Eos % (Auto) 0.0 % 03/05/22 18:38 Baso % (Auto) 0.4 % 03/05/22 18:38 Neut # (Auto) 22.86 K/uL (1.4-6.5) H 03/05/22 18:38 Lymph # (Auto) 0.82 K/uL (1.2-3.4) L 03/05/22 18:38 Luce # (Auto) 1.98 K/uL (0.24-0.82) H 03/05/22 18:38 Eos # (Auto) 0.01 K/uL (0-0.50) 03/05/22 18:38 Baso # (Auto) 0.11 K/uL (0-0.2) 03/05/22 18:38 Immature Gran # (Auto) 0.20 K/uL (0.00-0.02) H 03/05/22 18:38 PT 13.6 Seconds (9.0-12.0) H 03/05/22 18:38 INR 1.3 (0.9-1.1) H 03/05/22 18:38 APTT 32.8 Seconds (21.0-31.0) H 03/05/22 18:38 PTT Ratio 1.2 03/05/22 18:38 Sodium 138 mmol/L (136-145) 03/05/22 18:38 Potassium 4.2 mmol/L (3.5-5.1) 03/05/22 18:38 Chloride 107 mmol/L (98-107) 03/05/22 18:38 Carbon Dioxide 23 mmol/L (21-32) 03/05/22 18:38 Anion Gap 8 (3-11) 03/05/22 18:38 BUN 21 mg/dl (6-23) 03/05/22 18:38 Creatinine 1.01 mg/dl (0.6-1.4) 03/05/22 18:38 Est Cr Clr Drug Dosing 67.0 ml/min 03/05/22 18:38 Est GFR ( Amer) 81.6 ml/min 03/05/22 18:38 Est GFR (Non-Af Amer) 70.4 ml/min 03/05/22 18:38 BUN/Creatinine Ratio 20.8 (10-20) H 03/05/22 18:38 Glucose 74 mg/dl (70-99(Fasting)) 03/05/22 18:38 Lactate 2.5 mmol/L (0.4-2.0) H* 03/05/22 18:44 Calcium 9.8 mg/dl (8.5-10.1) 03/05/22 18:38 Magnesium 1.7 mg/dl (1.7-2.4) 03/05/22 18:38 Total Bilirubin 2.8 mg/dl (0.2-1.0) H 03/05/22 18:38 AST 27 U/L (13-39) 03/05/22 18:38 ALT 12 U/L (7-52) 03/05/22 18:38 Alkaline Phosphatase 95 U/L (34-104) 03/05/22 18:38 Ammonia 35.0 umol/L (18-72) 03/05/22 19:35 Troponin I High Sens 195.4 pg/ml (0-20) H* 03/05/22 18:38 Total Protein 6.0 gm/dl (6.0-8.3) 03/05/22 18:38 Albumin 3.3 gm/dl (3.4-5.0) L 03/05/22 18:38 Globulin 2.7 gm/dl (2.5-4.0) 03/05/22 18:38 Albumin/Globulin Ratio 1.2 (0.9-2) 03/05/22 18:38 Impressions Chest X-Ray 03/05/22 18:31 SINGLE VIEW CHEST CLINICAL HISTORY: Dyspnea. FINDINGS: An AP, portable, upright chest radiograph is compared to study dated 05/06/2021. The heart is markedly enlarged noting atherosclerotic calcification of the thoracic aorta. There is pulmonary vascular congestion. Chronic reticular thickening similar to previous. Airspace consolidation is noted at the left lung base. No large pleural effusion or pneumothorax is identified. The skeletal structures are osteopenic. The bony thorax is grossly intact. IMPRESSION: 1. Cardiomegaly with pulmonary vascular congestion. 2. Airspace consolidation is seen at the left lung base. Correlate clinically for evidence of pneumonia/aspiration pneumonitis. Radiographic follow-up to resolution is recommended. ACT 112: Negative or not required by law. Electronically signed by: Bud Scruggs M.D. 03/05/2022 8:11 PM Diagnostic Findings EKG as per my interpretation : Rate 95, A. fib, LAD, LAFB, no ischemia
[2022-03-05 20:36] LABS: Adenovirus PCR Not Detected (NotDetected); Bordetella parapertussis PCR Not Detected (NotDetected); Bordetella pertussis PCR Not Detected (NotDetected); Chlamydia pneumoniae PCR Not Detected (NotDetected); Coronavirus 229E PCR Not Detected (NotDetected); Coronavirus CoV-2 (COVID19)PCR Not Detected (NotDetected); Coronavirus HKU1 PCR Not Detected (NotDetected); Coronavirus NL63 PCR Not Detected (NotDetected); Coronavirus OC43PCR Not Detected (NotDetected); Human Metapneumovirus PCR Not Detected (NotDetected); Influenza A PCR Not Detected (NotDetected); Influenza B PCR Not Detected (NotDetected); Mycoplasma pneumoniae PCR Not Detected (NotDetected); Parainfluenza Virus 1 PCR Not Detected (NotDetected); Parainfluenza Virus 2 PCR Not Detected (NotDetected); Parainfluenza Virus 3 PCR Not Detected (NotDetected); Parainfluenza Virus 4 PCR Not Detected (NotDetected); Respiratory Syncytial VirusPCR Not Detected (NotDetected); Rhinovirus/Enterovirus PCR Not Detected (NotDetected)
[2022-03-05 21:00] LABS: Base Excess ABG -1.3 mEq/L (-9-1.8); HCO3 ABG 24 mmol/L (19-24); Oxygen Saturation ABG 91.6 % (90-95); PCO2 ABG 40 mmHg (35-46); PO2 ABG 62 mmHg (80-95); pH ABG 7.38 (7.35-7.45)
[2022-03-05 21:02] LABS: Allen Test Pos (Pos)
[2022-03-05] MEDS: MAGNESIUM SULFATE / D5W 1 GM/100 ML BAG IV SCH ×2 (21:05→22:28)
[2022-03-05] MEDS ORDERED: ALBUMIN 25% 100 mL 25 GM/100 ML VIAL IV STA (21:58)
[2022-03-05] MEDS ORDERED: FUROSEMIDE INJ 20 MG/2 ML VIAL IV STA (21:58)
[2022-03-06] MEDS ORDERED: PROMETHAZINE HCL 12.5 MG in SODIUM CHLORIDE 0.9% 50 ML IV PRN (00:05)
[2022-03-06 00:10] LABS: Appearance Urine Clear (Clear); Bacteria Urine Automated Negative (Negative); Bilirubin Urine Negative (Negative); Blood Urine Negative (Negative); Cast Urine Automated 0 /lpf (0-5); Color Urine Yellow; Glucose Urine UA Negative (Negative); Ketones Urine Negative (Negative); Leukocyte Esterase Urine Negative (Negative); Nitrite Urine Negative (Negative); Protein Urine Trace (Negative); RBC Urine Automated 0-4 /hpf (0-4); Specific Gravity Urine 1.016 (1.000-1.030); Urobilinogen Urine Negative (Negative); pH Urine 5.5 (4.5-7.5)
[2022-03-06] MEDS: IPRATROPIUM BROMIDE NEB SOLN 0.02% 2.5 ML VIAL INH SCH ×4 (00:32→19:29)
[2022-03-06] MEDS: LEVALBUTEROL 1.25MG/0.5ML NEB INH SCH ×4 (00:32→19:29)
[2022-03-06 00:38] LABS: Amphetamines+Metham, Urine Neg (Neg); Barbiturates, Urine Neg (Neg); Benzodiazepine, Urine Neg (Neg); Cocaine, Urine Neg (Neg); MDMA (Ecstacy), Urine Neg (Neg); Methadone, Urine Neg (Neg); Opiate, Urine Pos (Neg); Phencyclidine, Urine Neg (Neg)
[2022-03-06] MEDS ORDERED: XOPENEX/ATROVENT 1.25mg/0.5MG NEB COMBO NEB SCH (01:00)
[2022-03-06] MEDS: PIPERACILLIN/TAZOBACTAM 3.375 GM in DEXTROSE 5% 100 ML IV SCH ×3 (02:22→17:29)
[2022-03-06 07:32] LABS: Hematocrit (blood only) 31.7 % (40.1-51.0); Hemoglobin 10.7 g/dl (14.0-18.0); Mean Corpuscular Hemoglobin 33.4 pg (25.0-34.0); Mean Corpuscular Hgb Conc 33.8 g/dL (32.0-36.0); Mean Corpuscular Volume 99.1 fL (80.0-100.0); Mean Platelet Volume 12.2 fL (9.4-12.4); Platelet Count 93 K/uL (130-400); RDW Coefficient of Variation 16.5 % (11.5-14.5); RDW Standard Deviation 59.7 fL (36.4-46.3); White Blood Count 14.35 K/ul (4.8-10.8)
[2022-03-06 07:33] LABS: Basophils # (auto) 0.02 K/uL (0-0.2); Basophils % (auto) 0.1 %; Immature Granulocytes % (auto) 0.7 %; Lymphocytes # (auto) 0.44 K/uL (1.2-3.4); Lymphocytes % (auto) 3.1 %; Monocytes # (auto) 0.23 K/uL (0.24-0.82); Monocytes % (auto) 1.6 %; Neutrophils # (auto) 13.56 K/uL (1.4-6.5); Neutrophils % (auto) 94.5 %; Platelet Estimate Decreased (Normal)
[2022-03-06 08:17] LABS: BUN Creatinine Ratio 22.4 (10-20); Calcium 9.8 mg/dl (8.5-10.1); Creatinine Clr Calc Pharmacy 63.3 ml/min; Est GFR (African American) 76.1 ml/min; Est GFR (Non-African American) 65.7 ml/min; Potassium 4.1 mmol/L (3.5-5.1)
[2022-03-06] MEDS: predniSONE 20 MG TAB PO SCH (08:59)
[2022-03-06] MEDS: DOXYCYCLINE HYCLATE 100 MG CAP PO SCH ×2 (08:59→20:13)
[2022-03-06] MEDS ORDERED: INFLUENZA VACCINE HIGH DOSE PF 65+ 0.7 ML SYR IM ONE (09:00)
[2022-03-06] MEDS: ONDANSETRON INJ 2 MG/ML 2 ML VIAL IV PRN (09:51)
[2022-03-06] MEDS ORDERED: CARBOHYDRATES FOR HYPOGLYCEMIA PO PRN (11:02)
[2022-03-06] MEDS ORDERED: GLUCOSE 10 TAB/TUBE PO PRN (11:02)
[2022-03-06] MEDS ORDERED: GLUCOSE 40% GEL 15 GM TUBE PO PRN (11:02)
[2022-03-06] MEDS ORDERED: DEXTROSE 50% 50 ML SYRINGE IV PRN (11:02)
[2022-03-06] MEDS ORDERED: GLUCAGON FOR INJ 1 MG VIAL SQ PRN (11:02)
[2022-03-06] MEDS: LANTUS PER UNIT CHARGE SQ SCH (12:35)
[2022-03-06] MEDS: APIXABAN 5 MG TABLET PO SCH ×2 (12:36→20:12)
[2022-03-06] MEDS: INSULIN ASPART PER UNIT SC SCH ×3 (12:36→20:49)
[2022-03-06] MEDS: FLUTICASONE/VILANTEROL 100/25MCG 14 PUFFS/INHALER INH SCH (12:37)
[2022-03-06] MEDS: ACETAMINOPHEN 325 MG TAB PO PRN ×2 (13:23→21:28)
--- NOTE | 2022-03-06 13:31 | Hospitalist Progress Note ---
Date of Service March 06, 2022 Assessment & Plan (1) Acute hypoxemic respiratory failure: Plan: Multifactorial : Secondary to COPD exacerbation secondary to HCAP ([facility] inmate), possible aspiration (severe sepsis, SIRS plus hypoxemia, encephalopathy, lactic acidosis) Mild CHF, hx diastolic dysfunction, rule out progression of valvular heart disease Started on intravenous Zosyn and doxycycline Supplemental O2 administration Blood culture has been sent Aspiration precaution and speech evaluation Severe sepsis Secondary to pneumonia likely aspiration COPD exacerbation Has been on intravenous Zosyn and doxycycline Prednisone course and bronchodilators History of congestive heart failure Mild troponin elevation doubt any ACS Lasix albumin 1 dose given equivocal volume status (pulmonary congestion with lactic acidosis) Echo of the heart showed EF of 50 to 55%, moderate concentric LVH, left atrium is moderately dilated, aortic valve is trileaflet, there is small mobile echodensity adherent to the ventricular surface of the right coronary aortic valve differential diagnoses include limb balance excretions, vegetation, thrombus, there is moderate mitral regurgitation, mitral regurgitant jet is eccentrically directed, moderate loculated posterior and lateral pericardial effusion, focal area of moderate organization in the lateral AV groove, findings suggest possible pericardial fibrinous debris's thrombus versus mass, compared to study dated 05/06/2020 1 aortic valve mobile echodensity unchanged, medical effusion unchanged Will get cardiology evaluation Epigastric discomfort Likely has GERD We will start Protonix Hypertension, Blood pressure remains stable A. 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 Pulmonary consult if without improvement Appropriate to hold neuropsychotropic meds until patient breathing stable and patient more awake. Follow troponin Update TTE DVT prophylaxis. Eliquis Full code Total critical care time was 40 minutes. Text document was generated using [employer] voice recognition software. It may contain grammatical or spelling errors. Kindly contact undersigned for clarification of any documentation item in question. Admission and Anticipated Discharge Date Admission Date: March 05, 2022 Subjective 03/06/2022 The patient was seen and examined in telemetry unit He has been very unsteady and has fleeting symptoms of headache, abdominal pain, nausea and vomiting and generally unwell Denies any chest pain and/or palpitation Has cough with minimal shortness of No fever and no chills Review of Systems Review of Systems: All systems reviewed and are unremarkable except as noted below Respiratory: Mild to moderate shortness of breath at rest Gastrointestinal: Epigastric discomfort with nausea Physical Exam Physical Exam: Lying in bed with acute distress due to cough and shortness of breath Constitutional: + ill appearing and average body habitus Eyes: PERRL, conjunctivae normal, anicteric sclerae ENMT: external ear and nose normal, oropharynx normal Neck: trachea midline, no thyromegaly Respiratory: + respiratory distress (Mild to moderate respiratory distress at rest) Auscultation: + diminished lung sounds and + crackles (More on the left base than the right) Cardiovascular: Rate/Rhythm: + irregularly irregular; not tachycardic Heart Sounds: normal S1, normal S2 and + murmur Extremities: + edema (Trace edema bilaterally) Gastrointestinal (Abdomen): Inspection/Auscultation: normal bowel sounds; abdomen not distended Percussion/Palpation: + abdomen tender (Mildly tender in the epigastrium) and abdomen soft Musculoskeletal: No acute arthritis in any joint Neurologic: Alert, awake and oriented x3 Lymphatic: no cervical or axillary lymphadenopathy Results & Data Results & Data ([facility]) Vital Signs (Past 12 Hours) Vital Signs Temp Pulse Pulse Resp BP Pulse Ox O2 Del Method 03/06/22 12:42 99 H 18 94 Oxymask 03/06/22 11:59 36.7 C 96 H 17 124/64 90 Room Air 03/06/22 11:23 Oxymask 03/06/22 07:48 36.6 C 98 H 20 124/63 94 Oxymask 03/06/22 03:00 36.5 C 92 H 18 118/72 94 Oxymask O2 Flow Rate 03/06/22 12:42 5 03/06/22 11:59 03/06/22 11:23 5 03/06/22 07:48 6 03/06/22 03:00 6 Laboratory Results Short CBC 03/05/22 03/06/22 Range/Units 18:38 06:06 WBC 25.98 H 14.35 H D (4.8-10.8) K/ul Hgb 11.1 L 10.7 L (14.0-18.0) g/dl Hct 33.5 L 31.7 L (40.1-51.0) % Plt Count 121 L 93 L (130-400) K/uL BMP 03/05/22 03/06/22 18:38 06:06 Sodium 138 138 Potassium 4.2 4.1 Chloride 107 105 Carbon Dioxide 23 26 BUN 21 24 H Creatinine 1.01 1.07 Glucose 74 180 H Calcium 9.8 9.8 Liver Function 03/05/22 Range/Units 18:38 Total Bilirubin 2.8 H (0.2-1.0) mg/dl AST 27 (13-39) U/L ALT 12 (7-52) U/L Alkaline Phosphatase 95 (34-104) U/L Albumin 3.3 L (3.4-5.0) gm/dl Urine 03/05/22 Range/Units 23:00 Urine Color Yellow Urine Appearance Clear (Clear) Urine pH 5.5 (4.5-7.5) Ur Specific [place] 1.016 (1.000-1.030) Urine Protein Trace H (Negative) Urine Glucose (UA) Negative (Negative) Medications Administered Current Inpatient Medications Acetaminophen (Acetaminophen 325 Mg Tab) 650 mg PO Q4H PRN PRN Reason: Pain or Fever Stop: 04/05/22 00:04 Apixaban (Apixaban 5 Mg Tablet) 5 mg PO BID STEPHANE Stop: 04/05/22 10:59 Last Admin: 03/06/22 12:36 Dose: 5 mg Dextrose (Dextrose 50% 50 Ml Syringe) 25 - 50 ml IV UD PRN; Protocol PRN Reason: Hypoglycemia Protocol Stop: 04/05/22 11:01 Doxycycline Hyclate (Doxycycline Hyclate 100 Mg Cap) 100 mg PO BID STEPHANE Stop: 03/13/22 08:59 Last Admin: 03/06/22 08:59 Dose: 100 mg Duloxetine HCl (Duloxetine Hcl 60 Mg Cap) 60 mg PO HS STEPHANE Stop: 04/05/22 20:59 Fluticasone/Vilanterol (Fluticasone/Vilanterol 100/25mcg 14 Puffs/Inhaler) 1 puffs INH DAILY STEPHANE; Protocol Stop: 04/05/22 11:14 Last Admin: 03/06/22 12:37 Dose: 1 puffs Furosemide (Furosemide 20 Mg Tab) 20 mg PO DAILY STEPHANE Stop: 04/06/22 08:59 Glucagon (Glucagon For Inj 1 Mg Vial) 1 mg SQ UD PRN; Protocol PRN Reason: Hypoglycemia Protocol Stop: 04/05/22 11:01 Glucose (Glucose 40% Gel 15 Gm Tube) 15 - 30 gm PO UD PRN; Protocol PRN Reason: Hypoglycemia Protocol Stop: 04/05/22 11:01 Glucose (Glucose 10 Tab/Tube) 4 - 8 tab PO UD PRN; Protocol PRN Reason: Hypoglycemia Treatment Stop: 04/05/22 11:01 Piperacillin Sod/Tazobactam (Sod 3.375 gm/ Dextrose) 115 mls @ 28.75 mls/hr IV Q8H STEPHANE; Protocol Stop: 03/13/22 01:59 Last Infusion: 03/06/22 13:02 Dose: Infused Promethazine HCl 12.5 mg/ (Sodium Chloride) 50.5 mls @ 202 mls/hr IV Q6H PRN PRN Reason: Nausea And Vomiting Stop: 04/05/22 00:04 Insulin Aspart (Insulin Aspart Per Unit) 0 units SC ACHS STEPHANE Stop: 04/05/22 11:29 Last Admin: 03/06/22 12:36 Dose: 7 units Insulin Glargine (Lantus Per Unit Charge) 5 units SQ DAILY STEPHANE Stop: 04/05/22 11:14 Last Admin: 03/06/22 12:35 Dose: 5 units Ipratropium [place] (Ipratropium [place] Neb Soln 0.02% 2.5 Ml Vial) 0.5 mg INH Q6R STEPHANE Stop: 04/05/22 00:59 Last Admin: 03/06/22 12:41 Dose: 0.5 mg Lactulose (Lactulose Syrup 20 Gm/30 Ml Udc) 20 gm PO BID STEPHANE Stop: 04/05/22 20:59 Levalbuterol HCl (Levalbuterol 1.25mg/0.5ml Neb) 1.25 mg INH Q6R STEPHANE Stop: 04/05/22 00:59 Last Admin: 03/06/22 12:41 Dose: 1.25 mg Losartan Potassium (Losartan Potassium 50 Mg Tab) 100 mg PO DAILY STEPHANE Stop: 04/06/22 08:59 Miscellaneous (Carbohydrates For Hypoglycemia ) 15 - 30 gm PO UD PRN PRN Reason: Hypoglycemia Protocol Stop: 04/05/22 11:01 Ondansetron HCl (Ondansetron Inj 2 Mg/Ml 2 Ml Vial) 4 mg IV Q6H PRN PRN Reason: Nausea And Vomiting Stop: 04/05/22 09:40 Last Admin: 03/06/22 09:51 Dose: 4 mg Prednisone (Prednisone 20 Mg Tab) 40 mg PO DAILY STEPHANE Stop: 03/10/22 08:59 Last Admin: 03/06/22 08:59 Dose: 40 mg Tamsulosin HCl (Tamsulosin Hcl 0.4 Mg Cap) 0.4 mg PO DAILY STEPHANE Stop: 04/06/22 08:59 Umeclidinium [place] (Umeclidinium [place] 62.5mcg/Blister 7 Puffs/Inhaler) 1 p uffs INH DAILY STEPHANE Stop: 04/06/22 08:59
[2022-03-06] MEDS: PANTOprazole 40 MG TAB PO SCH (14:38)
[2022-03-06] MEDS ORDERED: ALBUTEROL 0.083% NEBU SOLN 3 ML VIAL NEB PRN (15:38)
[2022-03-06] MEDS: DULoxetine HCL 60 MG CAP PO SCH (20:11)
[2022-03-06] MEDS: LACTULOSE SYRUP 20 GM/30 ML UDC PO SCH (20:12)
[2022-03-07] MEDS: LEVALBUTEROL 1.25MG/0.5ML NEB INH SCH ×4 (00:12→19:41)
[2022-03-07] MEDS: IPRATROPIUM BROMIDE NEB SOLN 0.02% 2.5 ML VIAL INH SCH ×4 (00:12→19:41)
[2022-03-07] MEDS: PIPERACILLIN/TAZOBACTAM 3.375 GM in DEXTROSE 5% 100 ML IV SCH ×3 (01:33→17:25)
[2022-03-07] MEDS: ACETAMINOPHEN 325 MG TAB PO PRN ×3 (01:33→21:32)
--- NOTE | 2022-03-07 05:00 | Electrocardiogram Report ---
Test Reason : Blood Pressure : / mmHG Vent. Rate : 096 BPM Atrial Rate : 113 BPM P-R Int : 000 ms QRS Dur : 124 ms QT Int : 356 ms P-R-T Axes : 000 -51 098 degrees QTc Int : 449 ms Atrial fibrillation Left anterior fascicular block Non-specific intra-ventricular conduction block Abnormal ECG When compared with ECG of 08-MAY-2021 12:08, No significant change Confirmed by Phoenix Montoya ([id number]) on 03/07/2022 4:59:51 AM Referred By: REFERRED SELF Confirmed By:Phoenix Montoya
[2022-03-07] MEDS: INSULIN ASPART PER UNIT SC SCH ×4 (08:35→21:24)
[2022-03-07] MEDS: PANTOprazole 40 MG TAB PO SCH (08:38)
[2022-03-07] MEDS: DOXYCYCLINE HYCLATE 100 MG CAP PO SCH ×2 (08:38→21:20)
[2022-03-07] MEDS: TAMSULOSIN HCL 0.4 MG CAP PO SCH (08:39)
[2022-03-07] MEDS: predniSONE 20 MG TAB PO SCH (08:39)
[2022-03-07] MEDS: UMECLIDINIUM BROMIDE 62.5MCG/BLISTER 7 PUFFS/INHALER INH SCH (08:40)
[2022-03-07] MEDS: APIXABAN 5 MG TABLET PO SCH ×2 (08:43→21:19)
[2022-03-07] MEDS: LACTULOSE SYRUP 20 GM/30 ML UDC PO SCH ×2 (08:44→21:20)
[2022-03-07] MEDS: FLUTICASONE/VILANTEROL 100/25MCG 14 PUFFS/INHALER INH SCH (08:44)
[2022-03-07] MEDS: LANTUS PER UNIT CHARGE SQ SCH (08:50)
[2022-03-07] MEDS ORDERED: LOSARTAN POTASSIUM 50 MG TAB PO SCH (09:00)
[2022-03-07] MEDS ORDERED: FUROSEMIDE 20 MG TAB PO SCH (09:00)
--- NOTE | 2022-03-07 15:21 | Hospitalist Progress Note ---
Date of Service March 07, 2022 Assessment & Plan (1) Acute hypoxemic respiratory failure: Plan: Multifactorial : Secondary to COPD exacerbation secondary to HCAP (halfway inmate), possible aspiration (severe sepsis, SIRS plus hypoxemia, encephalopathy, lactic acidosis) Mild CHF, hx diastolic dysfunction, rule out progression of valvular heart disease Started on intravenous Zosyn and doxycycline Supplemental O2 administration Blood culture has been sent Aspiration precaution and speech evaluation Clinically better and is saturating on room air Has been tolerating easy to chew food Severe sepsis Secondary to pneumonia likely aspiration COPD exacerbation Has been on intravenous Zosyn and doxycycline Prednisone course and bronchodilators Overall improvement History of congestive heart failure Mild troponin elevation doubt any ACS Lasix albumin 1 dose given equivocal volume status (pulmonary congestion with lactic acidosis) Echo of the heart showed EF of 50 to 55%, moderate concentric LVH, left atrium is moderately dilated, aortic valve is trileaflet, there is small mobile echodensity adherent to the ventricular surface of the right coronary aortic valve differential diagnoses include limb balance excretions, vegetation, thr ombus, there is moderate mitral regurgitation, mitral regurgitant jet is eccentrically directed, moderate loculated posterior and lateral pericardial effusion, focal area of moderate organization in the lateral AV groove, findings suggest possible pericardial fibrinous debris's thrombus versus mass, compared to study dated 05/06/2020 1 aortic valve mobile echodensity unchanged, medical effusion unchanged Will get cardiology evaluation-awaiting cardiology evaluation from [facility] cardiology group Epigastric discomfort Likely has GERD We will start Protonix-seems to be helping Hypertension, Blood pressure remains stable A. 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 Pulmonary consult if without improvement Appropriate to hold neuropsychotropic meds until patient breathing stable and patient more awake. Follow troponin Update TTE-as above DVT prophylaxis. Eliquis Full code Admission and Anticipated Discharge Date Admission Date: March 05, 2022 Subjective 03/06/2022 The patient was seen and examined in telemetry unit He has been very unsteady and has fleeting symptoms of headache, abdominal pain, nausea and vomiting and generally unwell Denies any chest pain and/or palpitation Has cough with minimal shortness of No fever and no chills 03/07/2022 The patient was seen and examined in telemetry unit He seems to be a little stable today and denies any significant symptoms No shortness of breath at rest and denies any more abdominal pain Still wants to go back to halfway Review of Systems Review of Systems: All systems reviewed and are unremarkable except as noted below Respiratory: Mild to moderate shortness of breath at rest Gastrointestinal: Epigastric discomfort with nausea Physical Exam Physical Exam: Lying in bed with acute distress due to cough and shortness of breath Constitutional: + ill appearing and average body habitus Eyes: PERRL, conjunctivae normal, anicteric sclerae ENMT: external ear and nose normal, oropharynx normal Neck: trachea midline, no thyromegaly Respiratory: + respiratory distress (Mild to moderate respiratory distress at rest) Auscultation: + diminished lung sounds and + crackles (More on the left base than the right) Cardiovascular: Rate/Rhythm: + irregularly irregular; not tachycardic Heart Sounds: normal S1, normal S2 and + murmur Extremities: + edema (Trace edema bilaterally) Gastrointestinal (Abdomen): Inspection/Auscultation: normal bowel sounds; abdomen not distended Percussion/Palpation: + abdomen tender (Mildly tender in the epigastrium) and abdomen soft Musculoskeletal: No acute arthritis in any joint Neurologic: Alert, awake and oriented x3. No focal sensory or no motor deficit appreciated Lymphatic: no cervical or axillary lymphadenopathy Results & Data Results & Data ([facility]) Vital Signs (Past 12 Hours) Vital Signs Temp Pulse Pulse Resp BP BP Pulse Ox 03/07/22 15:12 36.7 C 109 H 19 124/93 90 03/07/22 13:15 101 H 18 91 03/07/22 11:49 37.1 C 108 H 17 141/75 H 91 03/07/22 08:00 117 H 03/07/22 08:00 03/07/22 07:06 36.7 C 111 H 18 143/73 H 94 03/07/22 06:24 114 H 16 94 03/07/22 03:53 36.6 C 115 H 18 168/78 H 99 O2 Del Method O2 Flow Rate 03/07/22 15:12 Room Air 03/07/22 13:15 Oxymask 4 03/07/22 11:49 Oxymask 4 03/07/22 08:00 03/07/22 08:00 Oxymask 4 03/07/22 07:06 Oxymask 4 03/07/22 06:24 Oxymask 4 03/07/22 03:53 Oxymask 4 Medications Administered Current Inpatient Medications Acetaminophen (Acetaminophen 325 Mg Tab) 650 mg PO Q4H PRN PRN Reason: Pain or Fever Stop: 04/05/22 00:04 Last Admin: 03/07/22 01:33 Dose: 650 mg Albuterol (Albuterol 0.083% Nebu Soln 3 Ml Vial) 2.5 mg NEB Q6R PRN; Protocol PRN Reason: Shortness Of Breath Or Wheezing Stop: 04/05/22 15:37 Last Admin: 03/06/22 15:50 Dose: 2.5 mg Apixaban (Apixaban 5 Mg Tablet) 5 mg PO BID [facility] Stop: 04/05/22 10:59 Last Admin: 03/07/22 08:43 Dose: 5 mg Dextrose (Dextrose 50% 50 Ml Syringe) 25 - 50 ml IV UD PRN; Protocol PRN Reason: Hypoglycemia Protocol Stop: 04/05/22 11:01 Doxycycline Hyclate (Doxycycline Hyclate 100 Mg Cap) 100 mg PO BID [facility] Stop: 03/13/22 08:59 Last Admin: 03/07/22 08:38 Dose: 100 mg Duloxetine HCl (Duloxetine Hcl 60 Mg Cap) 60 mg PO HS [facility] Stop: 04/05/22 20:59 Last Admin: 03/06/22 20:11 Dose: 60 mg Fluticasone/Vilanterol (Fluticasone/Vilanterol 100/25mcg 14 Puffs/Inhaler) 1 puffs INH DAILY [facility]; Protocol Stop: 04/05/22 11:14 Last Admin: 03/07/22 08:44 Dose: 1 puffs Furosemide (Furosemide 20 Mg Tab) 20 mg PO DAILY [facility] Stop: 04/06/22 08:59 Last Admin: 03/07/22 08:38 Dose: 20 mg Glucagon (Glucagon For Inj 1 Mg Vial) 1 mg SQ UD PRN; Protocol PRN Reason: Hypoglycemia Protocol Stop: 04/05/22 11:01 Glucose (Glucose 40% Gel 15 Gm Tube) 15 - 30 gm PO UD PRN; Protocol PRN Reason: Hypoglycemia Protocol Stop: 04/05/22 11:01 Glucose (Glucose 10 Tab/Tube) 4 - 8 tab PO UD PRN; Protocol PRN Reason: Hypoglycemia Treatment Stop: 04/05/22 11:01 Piperacillin Sod/Tazobactam (Sod 3.375 gm/ Dextrose) 115 mls @ 28.75 mls/hr IV Q8H [facility]; Protocol Stop: 03/13/22 01:59 Last Infusion: 03/07/22 13:54 Dose: Infused Promethazine HCl 12.5 mg/ (Sodium Chloride) 50.5 mls @ 202 mls/hr IV Q6H PRN PRN Reason: Nausea And Vomiting Stop: 04/05/22 00:04 Insulin Aspart (Insulin Aspart Per Unit) 0 units SC ACHS [facility] Stop: 04/05/22 11:29 Last Admin: 03/07/22 12:32 Dose: 2 units Insulin Glargine (Lantus Per Unit Charge) 5 units SQ DAILY [facility] Stop: 04/05/22 11:14 Last Admin: 03/07/22 08:50 Dose: 5 units Ipratropium [place] (Ipratropium [place] Neb Soln 0.02% 2.5 Ml Vial) 0.5 mg INH Q6R [facility] Stop: 04/05/22 00:59 Last Admin: 03/07/22 13:14 Dose: 0.5 mg Lactulose (Lactulose Syrup 20 Gm/30 Ml Udc) 20 gm PO BID [facility] Stop: 04/05/22 20:59 Last Admin: 03/07/22 08:44 Dose: 20 gm Levalbuterol HCl (Levalbuterol 1.25mg/0.5ml Neb) 1.25 mg INH Q6R [facility] Stop: 04/05/22 00:59 Last Admin: 03/07/22 13:15 Dose: 1.25 mg Losartan Potassium (Losartan Potassium 50 Mg Tab) 100 mg PO DAILY [facility] Stop: 04/06/22 08:59 Last Admin: 03/07/22 08:38 Dose: 100 mg Miscellaneous (Carbohydrates For Hypoglycemia ) 15 - 30 gm PO UD PRN PRN Reason: Hypoglycemia Protocol Stop: 04/05/22 11:01 Ondansetron HCl (Ondansetron Inj 2 Mg/Ml 2 Ml Vial) 4 mg IV Q6H PRN PRN Reason: Nausea And Vomiting Stop: 04/05/22 09:40 Last Admin: 03/06/22 09:51 Dose: 4 mg Pantoprazole Sodium (Pantoprazole 40 Mg Tab) 40 mg PO QAM [facility] Stop: 04/05/22 13:44 Last Admin: 03/07/22 08:38 Dose: 40 mg Prednisone (Prednisone 20 Mg Tab) 40 mg PO DAILY [facility] Stop: 03/10/22 08:59 Last Admin: 03/07/22 08:39 Dose: 40 mg Tamsulosin HCl (Tamsulosin Hcl 0.4 Mg Cap) 0.4 mg PO DAILY [facility] Stop: 04/06/22 08:59 Last Admin: 03/07/22 08:39 Dose: 0.4 mg Umeclidinium [place] (Umeclidinium [place] 62.5mcg/Blister 7 Puffs/Inhaler) 1 puffs INH DAILY [facility] Stop: 04/06/22 08:59 Last Admin: 03/07/22 08:40 Dose: 1 puffs
--- NOTE | 2022-03-07 17:04 | Cardiology Consultation ---
Date of Consultation March 07, 2022 Assessment & Plan (1) Atrial fibrillation, permanent: (2) Chronic heart failure with preserved ejection fraction: (3) Acute hypoxemic respiratory failure: (4) Mitral regurgitation: (5) Pericardial effusion: (6) HTN (hypertension): (7) Elevated troponin: Plan ASSESSMENT/PLAN: 1. Permanent atrial fibrillation: Heart rates are mildly elevated and he describes palpitations often. Has had history of bradycardia in the past on diltiazem and digoxin. Start metoprolol tartrate 25 mg twice daily. Hopefully this helps improve his symptoms. He is on anticoagulation for stroke risk reduction. Can continue if no contraindication. There were concerns in the past from GI bleeding for which Watchman device had been considered. He apparently has been tolerating Eliquis. 2. Acute hypoxemic respiratory failure: Had only 1 dose of intravenous diuretic, 20 mg of Lasix. Otherwise has been treated for COPD exacerbation and possible pneumonia with significant improvement of his symptoms. He does not appear to be significantly hypervolemic. 3. Chronic heart failure preserved EF: On low-dose Lasix as an outpatient. He does not appear to be significantly hypervolemic with only minimal JVD. Would recommend 40 mg of p.o. Lasix tomorrow, which can be done at his correctional facility and otherwise continue usual dose of 20 mg daily. Low-sodium diet, less than 2000 mg daily. Strict I&Os while hospitalized. Daily weights. 4. Mitral regurgitation: Chronic issue. Likely moderate to severe. Difficult to quantitate given eccentric jet, however left atrium is significantly dilated. This can be followed up as an outpatient with his primary health record technician. Given his multiple comorbidities and his what appears to be baseline confusion, question if he would be a suitable surgical candidate if necessary in the future. 5. Pericardial effusion: Stable and chronic. 6. Hypertension: Blood pressure mostly normotensive while here. Initiating beta-landen as above. 7. Elevated troponin: He did not present with acute coronary syndrome. Elevated troponins likely due to demand ischemia in the setting of acute hypoxemic respiratory failure. Ischemic evaluation not necessary at this time. 8. Disposition: Can be discharged from a cardiac perspective. Ultimately, discharge defer to primary hospitalist service. Follow-up with Dr. Coyle in the outpatient setting. Plan of care discussed via telephone with Dr. Munoz of the primary hospitalist service. Thank you for allowing me to participate in the care of your patient. Please call for any other questions or concerns. Sincerely, Avi Montoya M.D. History of Present Illness Reason for Consultation: CHF and atrial fibrillation Requesting Physician: Dilip Munoz MD Attending Physician: Dilip Munoz MD History of Present Illness Mr. Ramírez is a 81-year-old gentleman with history significant for permanent atrial fibrillation (reportedly diagnosed 1998), metastatic prostate cancer, COPD, type 2 diabetes, GI bleed, peptic ulcer disease, pulmonary embolus, DVT, pericardial effusion, mitral regurgitation, anemia, thrombocytopenia, mood disorder, cirrhosis, stroke and hypertension. Some records indicate that he may have had angioplasty performed in the of a coronary artery, however details are not known. His primary health record technician is Dr. Coyle. He was last seen by Dr. Coyle on 03/30/21. He was admitted on 03/05/2022 with acute hypoxemic respiratory failure. He was treated for COPD exacerbation with concerns for possible aspiration. Based on record review, he received 1 dose of intravenous Lasix, 20 mg on 03/05/2022. Unfortunately, fluid balance is incomplete, however his weight has trended down. He is a poor historian and when asked why he came to the hospital, he stated the AFib. When asked if he was short of breath, he then agreed that he was short of breath on presentation but continued to state that he presented to the hospital due to atrial fibrillation. He reports that he had been experiencing palpitations which is a common/frequent event. It is not significantly bothersome to him and is not related to any other symptom. He denies orthopnea. He admits that his shortness of breath has resolved and he feels back to baseline. He would like to be discharged today. He recalls having a productive cough and states that it has improved significantly. He denies fever, syncope, near-syncope, chest discomfort, edema, melena, hematochezia, or hematuria. In 2020, he was hospitalized and was noted to be bradycardic. He was on diltiazem and digoxin and these medications were discontinued. He has not been on any rate controlling medications for his atrial fibrillation and has been doing relatively well in that regard. Anticoagulation therapy had been discontinued in the past due to GI bleeds and there was discussion by his primary health record technician, Dr. Coyle, to consider a Watchman device. When he presented this hospital stay, he was on Eliquis and apparently tolerating well. Other than palpitations, his only other complaint was left knee pain which he states is chronic. He inquired about pain medications. This was related to nursing staff and primary hospitalist, Dr. Munoz. He is rather sedentary at his correctional facility. He states that he uses a wheelchair to get around for the most part. He has had the following studies/procedures: 1. Echo 05/06/2021: Low-normal LV systolic function. EF 50-55%. Hypokinesis of the inferolateral wall. Moderate MR. Small loculated posterior pericardial effusion. 2. Echo 03/06/2022: LVEF 50-55%. Normal wall motion. Dilated left atrium. Small mobile echodensity adherent to the ventricular surface of the aortic valve. Moderate MR. Eccentric MR jet. Loculated posterior and lateral pericardial effusion. Stable findings compared to 05/06/2021 echo. Review of systems: As above. Review of systems otherwise negative/unremarkable. Family history: Father had CAD. Social history: He smokes occasionally. He estimates approximately 7 children. He is originally from [place]. He is currently incarcerated at [facility]. He was accompanied by correctional officers. Allergies Allergy/AdvReac Type Severity Reaction Status Date / Time doxazosin [From Cardura] Allergy Unknown Unknown Verified 03/05/22 22:44 prazosin [From Minipress] Allergy Unknown Unknown Verified 03/05/22 22:44 Home Medications Medication Instructions Recorded Confirmed Type Al hyd-Mg tr-alg ac-sod bicarb 80 1 tab PO QID PRN Acid Reflux 03/05/22 03/05/22 History mg-20 mg chewable tablet acetaminophen 300 mg-codeine 30 mg 2 tab PO BID PRN Pain 03/05/22 03/05/22 History tablet albuterol sulfate 90 mcg/actuation 2 puff inhalation Q4 PRN Shortness 03/05/22 03/05/22 History aerosol inhaler Of Breath apixaban 5 mg tablet (Eliquis) 5 mg PO BID 03/05/22 03/05/22 History cholecalciferol (vitamin D3) 25 25 mcg PO DAILY 03/05/22 03/05/22 History mcg (1,000 unit) tablet (Vitamin D3) duloxetine 60 mg capsule,delayed 60 mg PO HS 03/05/22 03/05/22 History release sprinkle ferrous gluconate 324 mg (38 mg 324 mg PO DAILY 03/05/22 03/05/22 History iron) tablet fluticasone 250 mcg-salmeterol 50 1 inh inhalation BID 03/05/22 03/05/22 History mcg/dose blistr powdr for inhalation (Wixela Inhub) furosemide 20 mg tablet (Lasix) 20 mg PO DAILY 03/05/22 03/05/22 History gabapentin 300 mg capsule 300 mg PO HS 03/05/22 03/05/22 History hydroxyzine pamoate 50 mg capsule 50 mg PO HS 03/05/22 03/05/22 History lactulose 10 gram/15 mL oral 20 g PO BID 03/05/22 03/05/22 History solution leuprolide (3 month) 22.5 mg (3 22.5 mg subcut DIRECTED 03/05/22 03/05/22 History month) subcutaneous syringe (Eligard) losartan 100 mg tablet 100 mg PO DAILY 03/05/22 03/05/22 History nitroglycerin 0.4 mg sublingual 0.4 mg sublingual DIRECTED PRN 03/05/22 03/05/22 History tablet (Nitrostat) Chest Pain tamsulosin 0.4 mg capsule 0.4 mg PO DAILY 03/05/22 03/05/22 History umeclidinium 62.5 mcg/actuation 1 inh inhalation DAILY 03/05/22 03/05/22 History blister powder for inhalation (Incruse Ellipta) Patient History Medical History Allergic rhinitis Anemia S/p transfusion 05/2020 per records - secondary to GI bleed Anxiety Atrial fibrillation No longer on Coumadin (per records - no AC secondary to thrombocytopenia related to cirrhosis and bleeding risk secondary to falls) Bone lesion Metastasis from prostate cancer, on eligard BPH (benign prostatic hyperplasia) Chronic back pain Chronic pulmonary embolism Dx'ed [address] Cirrhosis COPD (chronic obstructive pulmonary disease) COVID-19 virus infection Tested Covid positive 07/09/20= pt admitted to [facility]- discharged 07/13/20 Depressive disorder Diabetes mellitus, type 2 per record - no medications DVT (deep venous thrombosis) Dx'ed 2018- not a candidate for AC GERD (gastroesophageal reflux disease) H/O: CVA (cerebrovascular accident) SCI states it has been several years ago Per records (12/10/17 cardio consult)- "suspected in October 2017" HTN (hypertension) Mitral regurgitation Peptic ulcer disease 05/2020 bleeding ulcer from Toradol treatment for pain from gallbladder and bone pain- was transferred to [facility] 05/22/20 due to uncontrolled GI bleeding Portal hypertension Presence of IVC filter Prostate cancer SCI emily states that he is refusing treatment for the prostate cancer and it has mets to bone and has alot of pain. (currently 11/29/21 taking Eligard every 3 months) Sciatica Tremor Surgical History H/O right knee surgery History of appendectomy History of cataract surgery bilateral History of cataract surgery Hx of esophagogastroduodenoscopy at least 2---recently 08/06/2020 GI bleed 05/2020 - was lifeflighted to [facility] Family History Mother , in her 80s Myocardial infarction Stroke Father , in her 60s Myocardial infarction Other Family history non-contributory Social History Smoking Status: Current some day smoker Tobacco Type: Cigarettes Age Started Using Tobacco: 11; Do You Dip or Chew Tobacco: No; Tobacco Cessation Education Requested by Patient: No Hx Alcohol Use: No Hx Substance Use: No Preferred Language: Thai Communication Ability: Effective Visual Impairment: No Limitations Hearing Ability: Normal Greenhouse Assistant Required: No Beliefs That Will Affect Care: None marital status: Single Current Living Situation: Other Current Living Situation Comment: Inmate at [facility] Emily current occupational status: unemployed Other Information That Helps Us Care for You: No Feels Safe at Home: Yes Safety Concerns: Feels Safe At This Time caffeine: Yes (2 cups/day) during the past year weight has: remained stable Assistive Devices: Wheelchair Physical Exam Physical Exam: Gen.: No acute distress. Alert and oriented only to self. HEENT: Anicteric sclera. Neck: Minimal JVD. No bruits. Normal carotid upstrokes bilaterally. Cardiac: No ventricular heave. Irregularly irregular and mildly tachycardic. Normal S1-S2. 1/6 systolic murmur. No rubs or gallops. Pulmonary: Overall, breath sounds throughout with more significantly decreased breath sounds at the right base. Abdomen: Soft, nontender, nondistended, with normoactive bowel sounds. No bruits noted. Extremities: 2+ radial pulses bilaterally. 2+ posterior tibialis pulses bilaterally. Trace bilateral lower extremity edema in the dependent areas. No cyanosis. Results & Data ([facility]) Vital Signs (Past 12 Hours) Vital Signs Temp Pulse Pulse Resp BP Pulse Ox O2 Del Method 03/07/22 15:12 36.7 C 109 H 19 124/93 90 Room Air 03/07/22 13:15 101 H 18 91 Oxymask 03/07/22 11:49 37.1 C 108 H 17 141/75 H 91 Oxymask 03/07/22 08:00 117 H 03/07/22 08:00 Oxymask 03/07/22 07:06 36.7 C 111 H 18 143/73 H 94 Oxymask 03/07/22 06:24 114 H 16 94 Oxymask O2 Flow Rate 03/07/22 15:12 03/07/22 13:15 4 03/07/22 11:49 4 03/07/22 08:00 03/07/22 08:00 4 03/07/22 07:06 4 03/07/22 06:24 4 Intake & Output 03/05/22 03/06/22 03/07/22 03/08/22 06:59 06:59 06:59 06:59 Intake Total 1114.167 / 1114.167 645 / 645 115 / 115 Output Total 475 / 475 425 / 425 500 / 500 Balance 639.167 / 639.167 220 / 220 -385 / -385 Weight 201 lb 0.985 oz 196 lb 13.965 oz Laboratory Results Laboratory Results - last 48 hr 03/05/22 03/05/22 03/05/22 18:38 18:38 18:38 WBC 25.98 H RBC 3.31 L Hgb 11.1 L Hct 33.5 L MCV 101.2 H MCH 33.5 MCHC 33.1 RDW Std Deviation 61.8 H RDW Coeff of Charo 16.7 H Plt Count 121 L MPV 11.5 Immature Gran % (Auto) 0.8 Neut % (Auto) 88.0 Lymph % (Auto) 3.2 [place] % (Auto) 7.6 Eos % (Auto) 0.0 Baso % (Auto) 0.4 Neut # (Auto) 22.86 H Lymph # (Auto) 0.82 L [place] # (Auto) 1.98 H Eos # (Auto) 0.01 Baso # (Auto) 0.11 Immature Gran # (Auto) 0.20 H Platelet Estimate PT 13.6 H INR 1.3 H APTT 32.8 H PTT Ratio 1.2 ABG pH ABG pCO2 ABG pO2 ABG HCO3 ABG O2 Saturation ABG Base Excess Roddy Test Oxygen Given Sodium 138 Potassium 4.2 Chloride 107 Carbon Dioxide 23 Anion Gap 8 BUN 21 Creatinine 1.01 Est Cr Clr Drug Dosing 67.0 Est GFR ( Amer) 81.6 Est GFR (Non-Af Amer) 70.4 BUN/Creatinine Ratio 20.8 H Glucose 74 POC Glucose Lactate Calcium 9.8 Magnesium 1.7 Total Bilirubin 2.8 H AST 27 ALT 12 Alkaline Phosphatase 95 Ammonia Troponin I High Sens 195.4 H* B-Natriuretic Peptide Total Protein 6.0 Albumin 3.3 L Globulin 2.7 Albumin/Globulin Ratio 1.2 TSH Urine Color Urine Appearance Urine pH Ur Specific [place] Urine Protein Urine Glucose (UA) Urine Ketones Urine Blood Urine Nitrite Urine Bilirubin Urine Urobilinogen Ur Leukocyte Esterase Urine WBC (Auto) Urine RBC (Auto) U Hyaline Cast (Auto) U Epithel Cells (Auto) Urine Bacteria (Auto) Nasal Screen MRSA (PCR) Urine Opiates Screen Ur Methadone, Qual Urine Barbiturates Ur Phencyclidine (PCP) U Amphetamin/Meth Scrn MDMA (Ecstasy) Screen U Benzodiazepines Scrn Ur Cocaine Metabolite U Marijuana (THC) Screen Adenovirus (PCR) B. pertussis DNA (PCR) B.parapertussis DNA PCR C. pneumoniae DNA (PCR) Coronavirus OC43 (PCR) Coronavirus HKU1 (PCR) Coronavirus 229E (PCR) SARS-CoV-2 (PCR) Coronavirus NL63 (PCR) Human Metapneumovir PCR Influenza Type A (PCR) Influenza Type B (PCR) M. pneumoniae (PCR) Parainfluenza 1 (PCR) Parainfluenza 2 (PCR) Parainfluenza 3 (PCR) Parainfluenza 4 (PCR) RSV (PCR) Entero/Rhino (PCR) 03/05/22 03/05/22 03/05/22 18:44 19:35 19:35 WBC RBC Hgb Hct MCV MCH MCHC RDW Std Deviation RDW Coeff of Charo Plt Count MPV Immature Gran % (Auto) Neut % (Auto) Lymph % (Auto) [place] % (Auto) Eos % (Auto) Baso % (Auto) Neut # (Auto) Lymph # (Auto) [place] # (Auto) Eos # (Auto) Baso # (Auto) Immature Gran # (Auto) Platelet Estimate PT INR APTT PTT Ratio ABG pH ABG pCO2 ABG pO2 ABG HCO3 ABG O2 Saturation ABG Base Excess Roddy Test Oxygen Given Sodium Potassium Chloride Carbon Dioxide Anion Gap BUN Creatinine Est Cr Clr Drug Dosing Est GFR ( Amer) Est GFR (Non-Af Amer) BUN/Creatinine Ratio Glucose POC Glucose Lactate 2.5 H* Calcium Magnesium Total Bilirubin AST ALT Alkaline Phosphatase Ammonia 35.0 Troponin I High Sens B-Natriuretic Peptide Total Protein Albumin Globulin Albumin/Globulin Ratio TSH Urine Color Urine Appearance Urine pH Ur Specific [place] Urine Protein Urine Glucose (UA) Urine Ketones Urine Blood Urine Nitrite Urine Bilirubin Urine Urobilinogen Ur Leukocyte Esterase Urine WBC (Auto) Urine RBC (Auto) U Hyaline Cast (Auto) U Epithel Cells (Auto) Urine Bacteria (Auto) Nasal Screen MRSA (PCR) Urine Opiates Screen Ur Methadone, Qual Urine Barbiturates Ur Phencyclidine (PCP) U Amphetamin/Meth Scrn MDMA (Ecstasy) Screen U Benzodiazepines Scrn Ur Cocaine Metabolite U Marijuana (THC) Screen Adenovirus (PCR) Not Detected B. pertussis DNA (PCR) Not Detected B.parapertussis DNA PCR Not Detected C. pneumoniae DNA (PCR) Not Detected Coronavirus OC43 (PCR) Not Detected Coronavirus HKU1 (PCR) Not Detected Coronavirus 229E (PCR) Not Detected SARS-CoV-2 (PCR) Not Detected Coronavirus NL63 (PCR) Not Detected Human Metapneumovir PCR Not Detected Influenza Type A (PCR) Not Detected Influenza Type B (PCR) Not Detected M. pneumoniae (PCR) Not Detected Parainfluenza 1 (PCR) Not Detected Parainfluenza 2 (PCR) Not Detected Parainfluenza 3 (PCR) Not Detected Parainfluenza 4 (PCR) Not Detected RSV (PCR) Not Detected Entero/Rhino (PCR) Not Detected 03/05/22 03/05/22 03/05/22 19:37 20:46 20:47 WBC RBC Hgb Hct MCV MCH MCHC RDW Std Deviation RDW Coeff of Charo Plt Count MPV Immature Gran % (Auto) Neut % (Auto) Lymph % (Auto) [place] % (Auto) Eos % (Auto) Baso % (Auto) Neut # (Auto) Lymph # (Auto) [place] # (Auto) Eos # (Auto) Baso # (Auto) Immature Gran # (Auto) Platelet Estimate PT INR APTT PTT Ratio ABG pH ABG pCO2 ABG pO2 ABG HCO3 ABG O2 Saturation ABG Base Excess Roddy Test Oxygen Given Sodium Potassium Chloride Carbon Dioxide Anion Gap BUN Creatinine Est Cr Clr Drug Dosing Est GFR ( Amer) Est GFR (Non-Af Amer) BUN/Creatinine Ratio Glucose POC Glucose Lactate 2.0 Calcium Magnesium Total Bilirubin AST ALT Alkaline Phosphatase Ammonia Troponin I High Sens B-Natriuretic Peptide Total Protein Albumin Globulin Albumin/Globulin Ratio TSH 0.902 Urine Color Urine Appearance Urine pH Ur Specific [place] Urine Protein Urine Glucose (UA) Urine Ketones Urine Blood Urine Nitrite Urine Bilirubin Urine Urobilinogen Ur Leukocyte Esterase Urine WBC (Auto) Urine RBC (Auto) U Hyaline Cast (Auto) U Epithel Cells (Auto) Urine Bacteria (Auto) Nasal Screen MRSA (PCR) Negative Urine Opiates Screen Ur Methadone, Qual Urine Barbiturates Ur Phencyclidine (PCP) U Amphetamin/Meth Scrn MDMA (Ecstasy) Screen U Benzodiazepines Scrn Ur Cocaine Metabolite U Marijuana (THC) Screen Adenovirus (PCR) B. pertussis DNA (PCR) B.parapertussis DNA PCR C. pneumoniae DNA (PCR) Coronavirus OC43 (PCR) Coronavirus HKU1 (PCR) Coronavirus 229E (PCR) SARS-CoV-2 (PCR) Coronavirus NL63 (PCR) Human Metapneumovir PCR Influenza Type A (PCR) Influenza Type B (PCR) M. pneumoniae (PCR) Parainfluenza 1 (PCR) Parainfluenza 2 (PCR) Parainfluenza 3 (PCR) Parainfluenza 4 (PCR) RSV (PCR) Entero/Rhino (PCR) 03/05/22 03/05/22 03/05/22 20:47 20:47 20:47 WBC RBC Hgb Hct MCV MCH MCHC RDW Std Deviation RDW Coeff of Charo Plt Count MPV Immature Gran % (Auto) Neut % (Auto) Lymph % (Auto) [place] % (Auto) Eos % (Auto) Baso % (Auto) Neut # (Auto) Lymph # (Auto) [place] # (Auto) Eos # (Auto) Baso # (Auto) Immature Gran # (Auto) Platelet Estimate PT INR APTT PTT Ratio ABG pH 7.38 ABG pCO2 40 ABG pO2 62 L ABG HCO3 24 ABG O2 Saturation 91.6 ABG Base Excess -1.3 Roddy Test Pos Oxygen Given 5L Sodium Potassium Chloride Carbon Dioxide Anion Gap BUN Creatinine Est Cr Clr Drug Dosing Est GFR ( Amer) Est GFR (Non-Af Amer) BUN/Creatinine Ratio Glucose POC Glucose Lactate Calcium Magnesium Total Bilirubin AST ALT Alkaline Phosphatase Ammonia Troponin I High Sens 192.0 H* B-Natriuretic Peptide 2163 H Total Protein Albumin Globulin Albumin/Globulin Ratio TSH Urine Color Urine Appearance Urine pH Ur Specific [place] Urine Protein Urine Glucose (UA) Urine Ketones Urine Blood Urine Nitrite Urine Bilirubin Urine Urobilinogen Ur Leukocyte Esterase Urine WBC (Auto) Urine RBC (Auto) U Hyaline Cast (Auto) U Epithel Cells (Auto) Urine Bacteria (Auto) Nasal Screen MRSA (PCR) Urine Opiates Screen Ur Methadone, Qual Urine Barbiturates Ur Phencyclidine (PCP) U Amphetamin/Meth Scrn MDMA (Ecstasy) Screen U Benzodiazepines Scrn Ur Cocaine Metabolite U Marijuana (THC) Screen Adenovirus (PCR) B. pertussis DNA (PCR) B.parapertussis DNA PCR C. pneumoniae DNA (PCR) Coronavirus OC43 (PCR) Coronavirus HKU1 (PCR) Coronavirus 229E (PCR) SARS-CoV-2 (PCR) Coronavirus NL63 (PCR) Human Metapneumovir PCR Influenza Type A (PCR) Influenza Type B (PCR) M. pneumoniae (PCR) Parainfluenza 1 (PCR) Parainfluenza 2 (PCR) Parainfluenza 3 (PCR) Parainfluenza 4 (PCR) RSV (PCR) Entero/Rhino (PCR) 03/05/22 03/05/22 03/05/22 23:00 23:00 23:05 WBC RBC Hgb Hct MCV MCH MCHC RDW Std Deviation RDW Coeff of Charo Plt Count MPV Immature Gran % (Auto) Neut % (Auto) Lymph % (Auto) [place] % (Auto) Eos % (Auto) Baso % (Auto) Neut # (Auto) Lymph # (Auto) [place] # (Auto) Eos # (Auto) Baso # (Auto) Immature Gran # (Auto) Platelet Estimate PT INR APTT PTT Ratio ABG pH ABG pCO2 ABG pO2 ABG HCO3 ABG O2 Saturation ABG Base Excess Roddy Test Oxygen Given Sodium Potassium Chloride Carbon Dioxide Anion Gap BUN Creatinine Est Cr Clr Drug Dosing Est GFR ( Amer) Est GFR (Non-Af Amer) BUN/Creatinine Ratio Glucose POC Glucose 127 H Lactate Calcium Magnesium Total Bilirubin AST ALT Alkaline Phosphatase Ammonia Troponin I High Sens B-Natriuretic Peptide Total Protein Albumin Globulin Albumin/Globulin Ratio TSH Urine Color Yellow Urine Appearance Clear Urine pH 5.5 Ur Specific [place] 1.016 Urine Protein Trace H Urine Glucose (UA) Negative Urine Ketones Negative Urine Blood Negative Urine Nitrite Negative Urine Bilirubin Negative Urine Urobilinogen Negative Ur Leukocyte Esterase Negative Urine WBC (Auto) 1-5 Urine RBC (Auto) 0-4 U Hyaline Cast (Auto) 0 U Epithel Cells (Auto) 5-10 H Urine Bacteria (Auto) Negative Nasal Screen MRSA (PCR) Urine Opiates Screen Pos H Ur Methadone, Qual Neg Urine Barbiturates Neg Ur Phencyclidine (PCP) Neg U Amphetamin/Meth Scrn Neg MDMA (Ecstasy) Screen Neg U Benzodiazepines Scrn Neg Ur Cocaine Metabolite Neg U Marijuana (THC) Screen Neg Adenovirus (PCR) B. pertussis DNA (PCR) B.parapertussis DNA PCR C. pneumoniae DNA (PCR) Coronavirus OC43 (PCR) Coronavirus HKU1 (PCR) Coronavirus 229E (PCR) SARS-CoV-2 (PCR) Coronavirus NL63 (PCR) Human Metapneumovir PCR Influenza Type A (PCR) Influenza Type B (PCR) M. pneumoniae (PCR) Parainfluenza 1 (PCR) Parainfluenza 2 (PCR) Parainfluenza 3 (PCR) Parainfluenza 4 (PCR) RSV (PCR) Entero/Rhino (PCR) 03/06/22 03/06/22 03/06/22 06:06 06:06 11:42 WBC 14.35 H D RBC 3.20 L Hgb 10.7 L Hct 31.7 L MCV 99.1 MCH 33.4 MCHC 33.8 RDW Std Deviation 59.7 H RDW Coeff of Charo 16.5 H Plt Count 93 L MPV 12.2 Immature Gran % (Auto) 0.7 Neut % (Auto) 94.5 Lymph % (Auto) 3.1 [place] % (Auto) 1.6 Eos % (Auto) 0.0 Baso % (Auto) 0.1 Neut # (Auto) 13.56 H Lymph # (Auto) 0.44 L [place] # (Auto) 0.23 L Eos # (Auto) 0.00 Baso # (Auto) 0.02 Immature Gran # (Auto) 0.10 H Platelet Estimate Decreased L PT INR APTT PTT Ratio ABG pH ABG pCO2 ABG pO2 ABG HCO3 ABG O2 Saturation ABG Base Excess Roddy Test Oxygen Given Sodium 138 Potassium 4.1 Chloride 105 Carbon Dioxide 26 Anion Gap 7 BUN 24 H Creatinine 1.07 Est Cr Clr Drug Dosing 63.3 Est GFR ( Amer) 76.1 Est GFR (Non-Af Amer) 65.7 BUN/Creatinine Ratio 22.4 H Glucose 180 H POC Glucose 221 H Lactate Calcium 9.8 Magnesium Total Bilirubin AST ALT Alkaline Phosphatase Ammonia Troponin I High Sens 151.0 H* D B-Natriuretic Peptide Total Protein Albumin Globulin Albumin/Globulin Ratio TSH Urine Color Urine Appearance Urine pH Ur Specific [place] Urine Protein Urine Glucose (UA) Urine Ketones Urine Blood Urine Nitrite Urine Bilirubin Urine Urobilinogen Ur Leukocyte Esterase Urine WBC (Auto) Urine RBC (Auto) U Hyaline Cast (Auto) U Epithel Cells (Auto) Urine Bacteria (Auto) Nasal Screen MRSA (PCR) Urine Opiates Screen Ur Methadone, Qual Urine Barbiturates Ur Phencyclidine (PCP) U Amphetamin/Meth Scrn MDMA (Ecstasy) Screen U Benzodiazepines Scrn Ur Cocaine Metabolite U Marijuana (THC) Screen Adenovirus (PCR) B. pertussis DNA (PCR) B.parapertussis DNA PCR C. pneumoniae DNA (PCR) Coronavirus OC43 (PCR) Coronavirus HKU1 (PCR) Coronavirus 229E (PCR) SARS-CoV-2 (PCR) Coronavirus NL63 (PCR) Human Metapneumovir PCR Influenza Type A (PCR) Influenza Type B (PCR) M. pneumoniae (PCR) Parainfluenza 1 (PCR) Parainfluenza 2 (PCR) Parainfluenza 3 (PCR) Parainfluenza 4 (PCR) RSV (PCR) Entero/Rhino (PCR) 03/06/22 03/06/22 03/07/22 16:39 20:40 07:02 WBC RBC Hgb Hct MCV MCH MCHC RDW Std Deviation RDW Coeff of Charo Plt Count MPV Immature Gran % (Auto) Neut % (Auto) Lymph % (Auto) [place] % (Auto) Eos % (Auto) Baso % (Auto) Neut # (Auto) Lymph # (Auto) [place] # (Auto) Eos # (Auto) Baso # (Auto) Immature Gran # (Auto) Platelet Estimate PT INR APTT PTT Ratio ABG pH ABG pCO2 ABG pO2 ABG HCO3 ABG O2 Saturation ABG Base Excess Roddy Test Oxygen Given Sodium Potassium Chloride Carbon Dioxide Anion Gap BUN Creatinine Est Cr Clr Drug Dosing Est GFR ( Amer) Est GFR (Non-Af Amer) BUN/Creatinine Ratio Glucose POC Glucose 152 H 182 H 143 H Lactate Calcium Magnesium Total Bilirubin AST ALT Alkaline Phosphatase Ammonia Troponin I High Sens B-Natriuretic Peptide Total Protein Albumin Globulin Albumin/Globulin Ratio TSH Urine Color Urine Appearance Urine pH Ur Specific [place] Urine Protein Urine Glucose (UA) Urine Ketones Urine Blood Urine Nitrite Urine Bilirubin Urine Urobilinogen Ur Leukocyte Esterase Urine WBC (Auto) Urine RBC (Auto) U Hyaline Cast (Auto) U Epithel Cells (Auto) Urine Bacteria (Auto) Nasal Screen MRSA (PCR) Urine Opiates Screen Ur Methadone, Qual Urine Barbiturates Ur Phencyclidine (PCP) U Amphetamin/Meth Scrn MDMA (Ecstasy) Screen U Benzodiazepines Scrn Ur Cocaine Metabolite U Marijuana (THC) Screen Adenovirus (PCR) B. pertussis DNA (PCR) B.parapertussis DNA PCR C. pneumoniae DNA (PCR) Coronavirus OC43 (PCR) Coronavirus HKU1 (PCR) Coronavirus 229E (PCR) SARS-CoV-2 (PCR) Coronavirus NL63 (PCR) Human Metapneumovir PCR Influenza Type A (PCR) Influenza Type B (PCR) M. pneumoniae (PCR) Parainfluenza 1 (PCR) Parainfluenza 2 (PCR) Parainfluenza 3 (PCR) Parainfluenza 4 (PCR) RSV (PCR) Entero/Rhino (PCR) 03/07/22 03/07/22 11:00 16:22 WBC RBC Hgb Hct MCV MCH MCHC RDW Std Deviation RDW Coeff of Charo Plt Count MPV Immature Gran % (Auto) Neut % (Auto) Lymph % (Auto) [place] % (Auto) Eos % (Auto) Baso % (Auto) Neut # (Auto) Lymph # (Auto) [place] # (Auto) Eos # (Auto) Baso # (Auto) Immature Gran # (Auto) Platelet Estimate PT INR APTT PTT Ratio ABG pH ABG pCO2 ABG pO2 ABG HCO3 ABG O2 Saturation ABG Base Excess Roddy Test Oxygen Given Sodium Potassium Chloride Carbon Dioxide Anion Gap BUN Creatinine Est Cr Clr Drug Dosing Est GFR ( Amer) Est GFR (Non-Af Amer) BUN/Creatinine Ratio Glucose POC Glucose 163 H 161 H Lactate Calcium Magnesium Total Bilirubin AST ALT Alkaline Phosphatase Ammonia Troponin I High Sens B-Natriuretic Peptide Total Protein Albumin Globulin Albumin/Globulin Ratio TSH Urine Color Urine Appearance Urine pH Ur Specific [place] Urine Protein Urine Glucose (UA) Urine Ketones Urine Blood Urine Nitrite Urine Bilirubin Urine Urobilinogen Ur Leukocyte Esterase Urine WBC (Auto) Urine RBC (Auto) U Hyaline Cast (Auto) U Epithel Cells (Auto) Urine Bacteria (Auto) Nasal Screen MRSA (PCR) Urine Opiates Screen Ur Methadone, Qual Urine Barbiturates Ur Phencyclidine (PCP) U Amphetamin/Meth Scrn MDMA (Ecstasy) Screen U Benzodiazepines Scrn Ur Cocaine Metabolite U Marijuana (THC) Screen Adenovirus (PCR) B. pertussis DNA (PCR) B.parapertussis DNA PCR C. pneumoniae DNA (PCR) Coronavirus OC43 (PCR) Coronavirus HKU1 (PCR) Coronavirus 229E (PCR) SARS-CoV-2 (PCR) Coronavirus NL63 (PCR) Human Metapneumovir PCR Influenza Type A (PCR) Influenza Type B (PCR) M. pneumoniae (PCR) Parainfluenza 1 (PCR) Parainfluenza 2 (PCR) Parainfluenza 3 (PCR) Parainfluenza 4 (PCR) RSV (PCR) Entero/Rhino (PCR) Diagnostic Findings Telemetry personally reviewed: Atrial fibrillation with mostly mild rapid ventricular response. Echo report reviewed as noted above in HPI. Echo images from 03/06/2022 personally reviewed and notable for: Low-normal LV systolic function. Moderate to severe eccentric mitral regurgitation. Severe left atrial dilation. Small pericardial effusion without echocardiographic evidence of tamponade physiology. ECG personally reviewed from 03/05/2022: Atrial fibrillation 96 beats per minute. IVCB. Chest x-ray 03/05/2022: Airspace consolidation left lung base. Pulmonary vascular congestion. Medications Administered Current Inpatient Medications Acetaminophen (Acetaminophen 325 Mg Tab) 650 mg PO Q4H PRN PRN Reason: Pain or Fever Stop: 04/05/22 00:04 Last Admin: 03/07/22 01:33 Dose: 650 mg Albuterol (Albuterol 0.083% Nebu Soln 3 Ml Vial) 2.5 mg NEB Q6R PRN; Protocol PRN Reason: Shortness Of Breath Or Wheezing Stop: 04/05/22 15:37 Last Admin: 03/06/22 15:50 Dose: 2.5 mg Apixaban (Apixaban 5 Mg Tablet) 5 mg PO BID [facility] Stop: 04/05/22 10:59 Last Admin: 03/07/22 08:43 Dose: 5 mg Dextrose (Dextrose 50% 50 Ml Syringe) 25 - 50 ml IV UD PRN; Protocol PRN Reason: Hypoglycemia Protocol Stop: 04/05/22 11:01 Doxycycline Hyclate (Doxycycline Hyclate 100 Mg Cap) 100 mg PO BID [facility] Stop: 03/13/22 08:59 Last Admin: 03/07/22 08:38 Dose: 100 mg Duloxetine HCl (Duloxetine Hcl 60 Mg Cap) 60 mg PO HS [facility] Stop: 04/05/22 20:59 Last Admin: 03/06/22 20:11 Dose: 60 mg Fluticasone/Vilanterol (Fluticasone/Vilanterol 100/25mcg 14 Puffs/Inhaler) 1 puffs INH DAILY [facility]; Protocol Stop: 04/05/22 11:14 Last Admin: 03/07/22 08:44 Dose: 1 puffs Furosemide (Furosemide 20 Mg Tab) 20 mg PO DAILY [facility] Stop: 04/06/22 08:59 Last Admin: 03/07/22 08:38 Dose: 20 mg Glucagon (Glucagon For Inj 1 Mg Vial) 1 mg SQ UD PRN; Protocol PRN Reason: Hypoglycemia Protocol Stop: 04/05/22 11:01 Glucose (Glucose 40% Gel 15 Gm Tube) 15 - 30 gm PO UD PRN; Protocol PRN Reason: Hypoglycemia Protocol Stop: 04/05/22 11:01 Glucose (Glucose 10 Tab/Tube) 4 - 8 tab PO UD PRN; Protocol PRN Reason: Hypoglycemia Treatment Stop: 04/05/22 11:01 Piperacillin Sod/Tazobactam (Sod 3.375 gm/ Dextrose) 115 mls @ 28.75 mls/hr IV Q8H [facility]; Protocol Stop: 03/13/22 01:59 Last Infusion: 03/07/22 13:54 Dose: Infused Promethazine HCl 12.5 mg/ (Sodium Chloride) 50.5 mls @ 202 mls/hr IV Q6H PRN PRN Reason: Nausea And Vomiting Stop: 04/05/22 00:04 Insulin Aspart (Insulin Aspart Per Unit) 0 units SC ACHS [facility] Stop: 04/05/22 11:29 Last Admin: 03/07/22 12:32 Dose: 2 units Insulin Glargine (Lantus Per Unit Charge) 5 units SQ DAILY [facility] Stop: 04/05/22 11:14 Last Admin: 03/07/22 08:50 Dose: 5 units Ipratropium [place] (Ipratropium [place] Neb Soln 0.02% 2.5 Ml Vial) 0.5 mg INH Q6R [facility] Stop: 04/05/22 00:59 Last Admin: 03/07/22 13:14 Dose: 0.5 mg Lactulose (Lactulose Syrup 20 Gm/30 Ml Udc) 20 gm PO BID [facility] Stop: 04/05/22 20:59 Last Admin: 03/07/22 08:44 Dose: 20 gm Levalbuterol HCl (Levalbuterol 1.25mg/0.5ml Neb) 1.25 mg INH Q6R [facility] Stop: 04/05/22 00:59 Last Admin: 03/07/22 13:15 Dose: 1.25 mg Losartan Potassium (Losartan Potassium 50 Mg Tab) 100 mg PO DAILY [facility] Stop: 04/06/22 08:59 Last Admin: 03/07/22 08:38 Dose: 100 mg Miscellaneous (Carbohydrates For Hypoglycemia ) 15 - 30 gm PO UD PRN PRN Reason: Hypoglycemia Protocol Stop: 04/05/22 11:01 Ondansetron HCl (Ondansetron Inj 2 Mg/Ml 2 Ml Vial) 4 mg IV Q6H PRN PRN Reason: Nausea And Vomiting Stop: 04/05/22 09:40 Last Admin: 03/06/22 09:51 Dose: 4 mg Pantoprazole Sodium (Pantoprazole 40 Mg Tab) 40 mg PO QAM [facility] Stop: 04/05/22 13:44 Last Admin: 03/07/22 08:38 Dose: 40 mg Prednisone (Prednisone 20 Mg Tab) 40 mg PO DAILY [facility] Stop: 03/10/22 08:59 Last Admin: 03/07/22 08:39 Dose: 40 mg Tamsulosin HCl (Tamsulosin Hcl 0.4 Mg Cap) 0.4 mg PO DAILY [facility] Stop: 04/06/22 08:59 Last Admin: 03/07/22 08:39 Dose: 0.4 mg Umeclidinium [place] (Umeclidinium [place] 62.5mcg/Blister 7 Puffs/Inhaler) 1 puffs INH DAILY [facility] Stop: 04/06/22 08:59 Last Admin: 03/07/22 08:40 Dose: 1 puffs PG Care Time/CCT Total # of Minutes Spent Total Time Spent with Patient: Total time spent is greater than 50% in coordination of care (as documented) at patient's floor/unit and/or counseling patient: Coding Level of Care Code 28240 Initial Inpt Care Lvl 3 Diagnoses Atrial fibrillation, permanent I48.21 Chronic heart failure with preserved ejection fraction I50.32 Acute hypoxemic respiratory failure J96.01 Mitral regurgitation I34.0 Pericardial effusion I31.3 HTN (hypertension) I10 Elevated troponin R77.8
[2022-03-07] MEDS ORDERED: METOPROLOL TARTRATE 25 MG TAB PO SCH (21:00)
[2022-03-07] MEDS: DULoxetine HCL 60 MG CAP PO SCH (21:20)
[2022-03-07 23:42] LABS: Codeine Urine 1890 ng/mL (<50); Hydrocodone Urine 65 ng/mL (<50); Hydromor Urine 56 ng/mL (<50); Morphine Urine 1270 ng/mL (<50); Norhydrocodone Conf Ur NEGATIVE ng/mL (<50); Noroxycodone Urine NEGATIVE ng/mL (<50); Oxycodone Urine NEGATIVE ng/mL (<50); Oxymorph Urine NEGATIVE ng/mL (<50)
[2022-03-08] MEDS: ACETAMINOPHEN 325 MG TAB PO PRN (01:17)
[2022-03-08] MEDS: PIPERACILLIN/TAZOBACTAM 3.375 GM in DEXTROSE 5% 100 ML IV SCH ×2 (01:17→09:54)
[2022-03-08] MEDS: ONDANSETRON INJ 2 MG/ML 2 ML VIAL IV PRN (02:47)
[2022-03-08] MEDS ORDERED: MAGNESIUM SULFATE / D5W 1 GM/100 ML BAG IV ONE (04:04)
[2022-03-08] MEDS ORDERED: METOPROLOL TARTRATE 25 MG TAB PO SCH (04:05)
[2022-03-08 04:47] LABS: Hematocrit (blood only) 33.2 % (40.1-51.0); Hemoglobin 11.2 g/dl (14.0-18.0); Mean Corpuscular Hemoglobin 33.3 pg (25.0-34.0); Mean Corpuscular Hgb Conc 33.7 g/dL (32.0-36.0); Mean Corpuscular Volume 98.8 fL (80.0-100.0); Mean Platelet Volume 12.1 fL (9.4-12.4); Platelet Count 96 K/uL (130-400); RDW Coefficient of Variation 15.8 % (11.5-14.5); RDW Standard Deviation 56.5 fL (36.4-46.3); Red Blood Count 3.36 M/uL (4.63-6.08); White Blood Count 8.16 K/ul (4.8-10.8)
[2022-03-08 04:49] LABS: Immature Granulocytes # (auto) 0.02 K/uL (0.00-0.02); Immature Granulocytes % (auto) 0.2 %; Lymphocytes # (auto) 0.68 K/uL (1.2-3.4); Lymphocytes % (auto) 8.3 %; Monocytes # (auto) 0.47 K/uL (0.24-0.82); Monocytes % (auto) 5.8 %; Neutrophils # (auto) 6.99 K/uL (1.4-6.5); Neutrophils % (auto) 85.7 %; Tear Drop Cells 1+
[2022-03-08 04:55] LABS: BUN Creatinine Ratio 30.1 (10-20); Calcium 10.2 mg/dl (8.5-10.1); Creatinine Clr Calc Pharmacy 46.4 ml/min; Est GFR (African American) 52.3 ml/min; Est GFR (Non-African American) 45.1 ml/min; Magnesium 2.1 mg/dl (1.7-2.4); Potassium 4.2 mmol/L (3.5-5.1)
[2022-03-08] MEDS ORDERED: ALBUMIN 25% 100 mL 25 GM/100 ML VIAL IV ONE (05:04)
[2022-03-08] MEDS ORDERED: XOPENEX/ATROVENT 1.25mg/0.5MG NEB COMBO NEB PRN (05:07)
--- NOTE | 2022-03-08 05:07 | Communication Note ---
Date of Service: March 08, 2022 Made aware by RT of patient tachycardia. Serum creatinine 1.46 AP Acute renal failure Baseline UA IV albumin 1 dose Hold Lasix and losartan for now. Will relay to AM provider.
[2022-03-08] MEDS ORDERED: IPRATROPIUM BROMIDE NEB SOLN 0.02% 2.5 ML VIAL INH PRN (05:15)
[2022-03-08] MEDS ORDERED: LEVALBUTEROL 1.25MG/0.5ML NEB INH PRN (05:15)
[2022-03-08] MEDS: LACTULOSE SYRUP 20 GM/30 ML UDC PO SCH (07:42)
[2022-03-08] MEDS: INSULIN ASPART PER UNIT SC SCH ×2 (07:57→12:04)
[2022-03-08] MEDS: UMECLIDINIUM BROMIDE 62.5MCG/BLISTER 7 PUFFS/INHALER INH SCH (08:07)
[2022-03-08] MEDS: TAMSULOSIN HCL 0.4 MG CAP PO SCH (08:07)
[2022-03-08] MEDS: DOXYCYCLINE HYCLATE 100 MG CAP PO SCH (08:07)
[2022-03-08] MEDS: PANTOprazole 40 MG TAB PO SCH (08:07)
[2022-03-08] MEDS: APIXABAN 5 MG TABLET PO SCH (08:07)
[2022-03-08] MEDS: FLUTICASONE/VILANTEROL 100/25MCG 14 PUFFS/INHALER INH SCH (08:08)
[2022-03-08] MEDS: predniSONE 20 MG TAB PO SCH (08:08)
[2022-03-08] MEDS: LANTUS PER UNIT CHARGE SQ SCH (08:13)
--- NOTE | 2022-03-08 09:55 | Hospitalist Progress Note ---
Date of Service March 08, 2022 Assessment & Plan (1) Acute hypoxemic respiratory failure: Plan: Multifactorial : Secondary to COPD exacerbation secondary to HCAP (custodial inmate), possible aspiration (severe sepsis, SIRS plus hypoxemia, encephalopathy, lactic acidosis) Mild CHF, hx diastolic dysfunction, rule out progression of valvular heart disease Started on intravenous Zosyn and doxycycline Supplemental O2 administration Blood culture has been sent Aspiration precaution and speech evaluation Clinically better and is saturating on room air Has been tolerating easy to chew food No more shortness of breath at rest and has not been requiring any oxygen to m aintain saturation Severe sepsis Secondary to pneumonia likely aspiration COPD exacerbation Has been on intravenous Zosyn and doxycycline Prednisone course and bronchodilators Overall improvement of his condition History of congestive heart failure Mild troponin elevation doubt any ACS Lasix albumin 1 dose given equivocal volume status (pulmonary congestion with lactic acidosis) Echo of the heart showed EF of 50 to 55%, moderate concentric LVH, left atrium is moderately dilated, aortic valve is trileaflet, there is small mobile echodensity adherent to the ventricular surface of the right coronary aortic valve differential diagnoses include limb balance excretions, vegetation, thrombus, there is moderate mitral regurgitation, mitral regurgitant jet is eccentrically directed, moderate loculated posterior and lateral pericardial effusion, focal area of moderate organization in the lateral AV groove, findings suggest possible pericardial fibrinous debris's thrombus versus mass, compared to study dated 05/06/2020 1 aortic valve mobile echodensity unchanged, medical effusion unchanged Will get cardiology evaluation-awaiting cardiology evaluation from [facility] cardiology group Appreciate cardiology input and recommendation Beta-landen added and may have a small doses of Lasix and Epigastric discomfort Likely has GERD We will start Protonix-seems to be helping No more epigastric pain and no nausea Hypertension, Blood pressure remains stable A. 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 Pulmonary consult if without improvement Appropriate to hold neuropsychotropic meds until patient breathing stable and patient more awake. Follow troponin Update TTE-as above DVT prophylaxisSondra Gaxiola Full code Will be discharged this afternoon Admission and Anticipated Discharge Date Admission Date: March 05, 2022 Subjective 03/06/2022 The patient was seen and examined in telemetry unit He has been very unsteady and has fleeting symptoms of headache, abdominal pain, nausea and vomiting and generally unwell Denies any chest pain and/or palpitation Has cough with minimal shortness of No fever and no chills 03/07/2022 The patient was seen and examined in telemetry unit He seems to be a little stable today and denies any significant symptoms No shortness of breath at rest and denies any more abdominal pain Still wants to go back to custodial 03/08/2022 The patient was seen and examined in telemetry unit He has been feeling much better today Denies any significant abdominal/epigastric discomfort and no more shortness of breath He wants to go back to custodial Review of Systems Review of Systems: All systems reviewed and are unremarkable except as noted below Respiratory: Mild to moderate shortness of breath at rest Gastrointestinal: Epigastric discomfort with nausea are improved Physical Exam Physical Exam: Lying in bed comfortably without any acute distress Constitutional: average body habitus; not ill appearing Eyes: PERRL, conjunctivae normal, anicteric sclerae ENMT: external ear and nose normal, oropharynx normal Neck: trachea midline, no thyromegaly Respiratory: no respiratory distress Auscultation: + diminished lung sounds and + crackles (Minimal at the bases) Cardiovascular: Rate/Rhythm: + irregularly irregular; not tachycardic Heart Sounds: normal S1, normal S2 and + murmur Extremities: + edema (Trace edema bilaterally) Gastrointestinal (Abdomen): Inspection/Auscultation: normal bowel sounds; abdomen not distended Percussion/Palpation: + abdomen tender (Mildly tender in the epigastrium) and abdomen soft Musculoskeletal: No acute arthritis in any joint Neurologic: Alert, awake and oriented x3. No focal sensory or no motor deficit appreciated Lymphatic: no cervical or axillary lymphadenopathy Results & Data Results & Data ([facility]) Vital Signs (Past 12 Hours) Vital Signs Temp Pulse Pulse Resp BP Pulse Ox O2 Del Method 03/08/22 08:00 36.8 C 109 H 18 143/76 H 97 03/08/22 08:00 Room Air 03/08/22 03:17 36.7 C 109 H 18 155/96 H 90 03/08/22 00:32 96 H 03/07/22 23:15 36.4 C L 97 H 18 143/88 H 90 Room Air Laboratory Results Short CBC 03/08/22 Range/Units 04:17 WBC 8.16 (4.8-10.8) K/ul Hgb 11.2 L (14.0-18.0) g/dl Hct 33.2 L (40.1-51.0) % Plt Count 96 L (130-400) K/uL BMP 03/08/22 04:17 Sodium 136 Potassium 4.2 Chloride 105 Carbon Dioxide 25 BUN 44 H D Creatinine 1.46 H D Glucose 112 H Calcium 10.2 H Medications Administered Current Inpatient Medications Acetaminophen (Acetaminophen 325 Mg Tab) 650 mg PO Q4H PRN PRN Reason: Pain or Fever Stop: 04/05/22 00:04 Last Admin: 03/08/22 01:17 Dose: 650 mg Apixaban (Apixaban 5 Mg Tablet) 5 mg PO BID [facility] Stop: 04/05/22 10:59 Last Admin: 03/08/22 08:07 Dose: 5 mg Dextrose (Dextrose 50% 50 Ml Syringe) 25 - 50 ml IV UD PRN; Protocol PRN Reason: Hypoglycemia Protocol Stop: 04/05/22 11:01 Doxycycline Hyclate (Doxycycline Hyclate 100 Mg Cap) 100 mg PO BID [facility] Stop: 03/13/22 08:59 Last Admin: 03/08/22 08:07 Dose: 100 mg Duloxetine HCl (Duloxetine Hcl 60 Mg Cap) 60 mg PO HS [facility] Stop: 04/05/22 20:59 Last Admin: 03/07/22 21:20 Dose: 60 mg Fluticasone/Vilanterol (Fluticasone/Vilanterol 100/25mcg 14 Puffs/Inhaler) 1 puffs INH DAILY [facility]; Protocol Stop: 04/05/22 11:14 Last Admin: 03/08/22 08:08 Dose: 1 puffs Furosemide (Furosemide 20 Mg Tab) 20 mg PO DAILY [facility] Stop: 04/06/22 08:59 Last Admin: 03/07/22 08:38 Dose: 20 mg Glucagon (Glucagon For Inj 1 Mg Vial) 1 mg SQ UD PRN; Protocol PRN Reason: Hypoglycemia Protocol Stop: 04/05/22 11:01 Glucose (Glucose 40% Gel 15 Gm Tube) 15 - 30 gm PO UD PRN; Protocol PRN Reason: Hypoglycemia Protocol Stop: 04/05/22 11:01 Glucose (Glucose 10 Tab/Tube) 4 - 8 tab PO UD PRN; Protocol PRN Reason: Hypoglycemia Treatment Stop: 04/05/22 11:01 Piperacillin Sod/Tazobactam (Sod 3.375 gm/ Dextrose) 115 mls @ 28.75 mls/hr IV Q8H [facility]; Protocol Stop: 03/13/22 01:59 Last Infusion: 03/08/22 05:21 Dose: Infused Promethazine HCl 12.5 mg/ (Sodium Chloride) 50.5 mls @ 202 mls/hr IV Q6H PRN PRN Reason: Nausea And Vomiting Stop: 04/05/22 00:04 Insulin Aspart (Insulin Aspart Per Unit) 0 units SC ACHS [facility] Stop: 04/05/22 11:29 Last Admin: 03/08/22 07:57 Dose: Not Given Insulin Glargine (Lantus Per Unit Charge) 5 units SQ DAILY [facility] Stop: 04/05/22 11:14 Last Admin: 03/08/22 08:13 Dose: 5 units Ipratropium [place] (Ipratropium [place] Neb Soln 0.02% 2.5 Ml Vial) 0.5 mg INH Q4H PRN PRN Reason: Shortness Of Breath Or Wheezing Stop: 04/07/22 05:14 Lactulose (Lactulose Syrup 20 Gm/30 Ml Udc) 20 gm PO BID [facility] Stop: 04/05/22 20:59 Last Admin: 03/08/22 07:42 Dose: Not Given Levalbuterol HCl (Levalbuterol 1.25mg/0.5ml Neb) 1.25 mg INH Q4H PRN PRN Reason: Shortness Of Breath Or Wheezing Stop: 04/07/22 05:14 Losartan Potassium (Losartan Potassium 50 Mg Tab) 100 mg PO DAILY [facility] Stop: 04/06/22 08:59 Last Admin: 03/07/22 08:38 Dose: 100 mg Metoprolol Tartrate (Metoprolol Tartrate 25 Mg Tab) 25 mg PO BID [facility] Stop: 04/07/22 04:04 Last Admin: 03/08/22 05:52 Dose: 25 mg Miscellaneous (Carbohydrates For Hypoglycemia ) 15 - 30 gm PO UD PRN PRN Reason: Hypoglycemia Protocol Stop: 04/05/22 11:01 Ondansetron HCl (Ondansetron Inj 2 Mg/Ml 2 Ml Vial) 4 mg IV Q6H PRN PRN Reason: Nausea And Vomiting Stop: 04/05/22 09:40 Last Admin: 03/08/22 02:47 Dose: 4 mg Pantoprazole Sodium (Pantoprazole 40 Mg Tab) 40 mg PO QAM [facility] Stop: 04/05/22 13:44 Last Admin: 03/08/22 08:07 Dose: 40 mg Prednisone (Prednisone 20 Mg Tab) 40 mg PO DAILY [facility] Stop: 03/10/22 08:59 Last Admin: 03/08/22 08:08 Dose: 40 mg Tamsulosin HCl (Tamsulosin Hcl 0.4 Mg Cap) 0.4 mg PO DAILY [facility] Stop: 04/06/22 08:59 Last Admin: 03/08/22 08:07 Dose: 0.4 mg Umeclidinium [place] (Umeclidinium [place] 62.5mcg/Blister 7 Puffs/Inhaler) 1 puffs INH DAILY [facility] Stop: 04/06/22 08:59 Last Admin: 03/08/22 08:07 Dose: 1 puffs
[2022-03-08 13:46] LABS: BUN Creatinine Ratio 32.5 (10-20); Calcium 9.9 mg/dl (8.5-10.1); Creatinine Clr Calc Pharmacy 53.7 ml/min; Est GFR (African American) 62.5 ml/min; Est GFR (Non-African American) 53.9 ml/min
--- NOTE | 2022-03-08 16:45 | Discharge Summary ---
Date of Service March 08, 2022 Admission HPI Per Admitting Provider History obtained from patient and records. Medical history significant for chronic diastolic heart failure (EF 55%, TTE 2020), moderate MR, hypertension, A. 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 Last confinement May 2021 for respiratory failure secondary to pneumonia. 3 days history of junky cough symptoms. Patient not sure about COVID-19 contacts. Has not received COVID-19 vaccination. Admits to coughing with meals/water intake if not careful. No chest pain. Worsening shortness of breath. Some fluid retention as per patient. Patient noted to have shallow breathing today, O2 sats 88 on room air. Patient slightly drowsy. Denies headache symptoms. Patient brought to the ER for evaluation. Zosyn, neb treatment, Solu-Medrol, administered at the ER. MEDICAL HISTORY: As above. 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 Admission Exam Per Admitting Provider Physical Exam: GENERAL: Uncomfortable, respiratory distress SKIN: Pallor,, warm HEENT: Pale palpebral conjunctivae, no ptosis, dry buccal mucosa, O2 mask in place NECK : Supple, no tenderness CHEST : Bilateral rhonchi, expiratory wheezes, no tenderness HEART : Tachycardic, irregular, no obvious murmurs ABDOMEN: Some distention, nontender EXTREMITIES : Minimal LE swelling, no LE tenderness, no other conspicuous deformities noted NEUROLOGIC : Coherent, no facial asymmetry, no other gross focality Principal Diagnosis COPD exacerbation, mild CHF secondary to diastolic dysfunction, atrial fibrillation, hypertension Discharge Exam Lying in bed comfortably without any acute distress Constitutional average body habitus; not ill appearing Eyes PERRL, conjunctivae normal, anicteric sclerae ENMT external ear and nose normal, oropharynx normal Neck trachea midline, no thyromegaly Respiratory no respiratory distress Auscultation: + diminished lung sounds and + crackles (Minimal at the bases) Cardiovascular Rate/Rhythm: + irregularly irregular; not tachycardic Heart Sounds: normal S1, normal S2 and + murmur Extremities: + edema (Trace edema bilaterally) Gastrointestinal (Abdomen) Inspection/Auscultation: normal bowel sounds; abdomen not distended Percussion/Palpation: + abdomen tender (Mildly tender in the epigastrium) and abdomen soft Lymphatic no cervical or axillary lymphadenopathy Discharge Data Allergies Allergy/AdvReac Type Severity Reaction Status Date / Time doxazosin [From Cardura] Allergy Unknown Unknown Verified 03/05/22 22:44 prazosin [From Minipress] Allergy Unknown Unknown Verified 03/05/22 22:44 Consultations 03/05/22 20:30 ED Decision to Admit Stat 03/07/22 09:57 Consult Cardiology Routine Hospital Course (1) Acute hypoxemic respiratory failure: Multifactorial : Secondary to COPD exacerbation secondary to HCAP (nursing home inmate), possible aspiration (severe sepsis, SIRS plus hypoxemia, encephalopathy, lactic acidosis) Mild CHF, hx diastolic dysfunction, rule out progression of valvular heart disease Started on intravenous Zosyn and doxycycline Supplemental O2 administration Blood culture has been sent Aspiration precaution and speech evaluation Clinically better and is saturating on room air Has been tolerating easy to chew food No more shortness of breath at rest and has not been requiring any oxygen to maintain saturation Severe sepsis Secondary to pneumonia likely aspiration COPD exacerbation Has been on intravenous Zosyn and doxycycline Prednisone course and bronchodilators Overall improvement of his condition History of congestive heart failure Mild troponin elevation doubt any ACS Lasix albumin 1 dose given equivocal volume status (pulmonary congestion with lactic acidosis) Echo of the heart showed EF of 50 to 55%, moderate concentric LVH, left atrium is moderately dilated, aortic valve is trileaflet, there is small mobile echodensity adherent to the ventricular surface of the right coronary aortic valve differential diagnoses include limb balance excretions, vegetation, thrombus, there is moderate mitral regurgitation, mitral regurgitant jet is eccentrically directed, moderate loculated posterior and lateral pericardial effusion, focal area of moderate organization in the lateral AV groove, findings suggest possible pericardial fibrinous debris's thrombus versus mass, compared to study dated 05/06/2020 1 aortic valve mobile echodensity unchanged, medical effusion unchanged Will get cardiology evaluation-awaiting cardiology evaluation from [facility] cardiology group Appreciate cardiology input and recommendation Beta-landen added and may have a small doses of Lasix and Epigastric discomfort Likely has GERD We will start Protonix-seems to be helping No more epigastric pain and no nausea Hypertension, Blood pressure remains stable A. 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 Pulmonary consult if without improvement Appropriate to hold neuropsychotropic meds until patient breathing stable and patient more awake. Follow troponin Update TTE-as above DVT prophylaxis. Sadiaquis Full code Will be discharged this afternoon Total Time Total Time Spent Total Time Spent (In Minutes): 35 minutes Discharge Plan Discharge Items [facility] Disposition[facility] Reason For Visit: RESP FAILURE Discharge Diagnosis: COPD exacerbation, mild CHF secondary to diastolic dysfunction, atrial fibrillation, hypertension Condition on Discharge: Fair Activity: Resume your previous activity Non-emergency contact: Primary Care Provider Call non-emergency contact if: you have any medication questions and your symptoms worsen Follow-up/Referrals: Stanislaw Coyle MD [Physician] - 04/05/22 9:45 am Cortez BOND [Primary Care Provider] - Diet: Heart Healthy Addtl Attending Provider Instructions: Please take precautions to avoid falls Take your medications as advised Finish the course of antibiotics-Doxycycline and Augmentin(to cover possible aspiration as well as atypicals) Please have regular follow-up with your healthcare providers Have your Kidney function checked in a few days Pending Studies at Discharge: No Stand-Alone Forms: My [facility] Skilled Items Patient informed of condition?: Yes Discharge Level of Care: Other Communicable Disease: No Discharge Prognosis: Stable Lines: None Urinary Catheter: No Medications and DC Order Prescriptions: New doxycycline hyclate 100 mg Capsule 100 mg PO BID 6 Days Qty: 12 0RF pantoprazole 40 mg Tablet,Delayed Release (Dr/Ec) 40 mg PO QAM 30 Days Qty: 30 0RF metoprolol tartrate 25 mg Tablet 25 mg PO BID 30 Days Qty: 60 0RF prednisone 10 mg tablet 10 mg PO DAILY Qty: 18 0RF Rx Instructions: 3 p.o. daily for 3 days, 2 p.o. daily for 3 days, 1 p.o. daily for 3 days amoxicillin-pot clavulanate [Augmentin] 500-125 mg tablet 1 tab PO BID Qty: 12 0RF Continued fluticasone propion-salmeterol [Wixela Inhub] 250-50 mcg/dose Blister With Device 1 inh INHALATION BID hydroxyzine pamoate 50 mg Capsule 50 mg PO HS acetaminophen-codeine 300-30 mg Tablet 2 tab PO BID PRN (Reason: Pain) Rx Instructions: stop date 03/13/22 tamsulosin 0.4 mg Capsule 0.4 mg PO DAILY nitroglycerin [Nitrostat] 0.4 mg Tablet, Sublingual 0.4 mg sublingual DIRECTED PRN (Reason: Chest Pain) gabapentin 300 mg Capsule 300 mg PO HS furosemide [Lasix] 20 mg Tablet 20 mg PO DAILY Al hyd-Mg tr-alg ac-sod bicarb 80-20 mg Tablet,Chewable 1 tab PO QID PRN (Reason: Acid Reflux) albuterol sulfate 90 mcg/actuation Hfa Aerosol Inhaler 2 puff INHALATION Q4 PRN (Reason: Shortness Of Breath) losartan 100 mg Tablet 100 mg PO DAILY Eligard (3 month) 22.5 mg Syringe 22.5 mg SUBCUT DIRECTED Rx Instructions: daily on 01/06/2022 & 04/07/2022 lactulose 10 gram/15 mL Solution 20 g PO BID cholecalciferol (vitamin D3) [Vitamin D3] 25 mcg (1,000 unit) Tablet 25 mcg PO DAILY ferrous gluconate 324 mg (38 mg iron) Tablet 324 mg PO DAILY Eliquis 5 mg Tablet 5 mg PO BID Incruse Ellipta 62.5 mcg/actuation Blister With Device 1 inh INHALATION DAILY duloxetine 60 mg Capsule, Delayed Rel Sprinkle 60 mg PO HS Discharge Orders: Discharge Order (Routine); Ordered 03/08/22 Ordered By: Dilip Munoz Admission Data Admit Date/Time: 03/05/22 22:50 Attending Provider: Dilip Munoz Admit Provider: Maricel Freitas Primary Care Provider: Cortez BOND Other Providers: Good Ibarra ; Maximiliano Jackson ; Wilbert Matthews ; Luis Eduardo Dunn ; Ashok Stevenson ; Mateus Herzog ; Eddie Harden Jr ; Phoenix Montoya ; Petrona Mcghee ; Alaina Salas ; Juancho Baxter ; Stanislaw Coyle ; Ari Orr ; Maria Alejandra Bellamy ; Anya Chopra ; Chetan Simpson ; Adam Winter ; Norberto Miranda ; Ashok Matos V. Other Interventions: Discharge Summary Assessment (RN) Last Done: 03/08/22 12:59
== END 2022-03-08 16:13 | DRG 871 ==
LOC: ED 18:22 → SUATTDRO 22:50 → 2S 22:50
DX: I50.33 Acute on chronic diastolic (congestive) heart failure; Z86.16 Personal history of COVID-19; I27.82 Chronic pulmonary embolism; I11.0 Hypertensive heart disease with heart failure; J69.0 Pneumonitis due to inhalation of food and vomit; D69.6 Thrombocytopenia, unspecified; D64.9 Anemia, unspecified; I31.39 Other pericardial effusion (noninflammatory); N40.0 Benign prostatic hyperplasia without lower urinary tract symptoms; C61 Malignant neoplasm of prostate; K21.9 Gastro-esophageal reflux disease without esophagitis; Z95.828 Presence of other vascular implants and grafts; E87.20 Acidosis, unspecified; A41.9 Sepsis, unspecified organism; I34.0 Nonrheumatic mitral (valve) insufficiency; J44.1 Chronic obstructive pulmonary disease with (acute) exacerbation; J96.01 Acute respiratory failure with hypoxia; I48.21 Permanent atrial fibrillation; E11.9 Type 2 diabetes mellitus without complications; Z82.49 Family history of ischemic heart disease and other diseases of the circulatory system; R00.0 Tachycardia, unspecified; I48.92 Unspecified atrial flutter; K70.30 Alcoholic cirrhosis of liver without ascites; Z79.01 Long term (current) use of anticoagulants; I24.8 Other forms of acute ischemic heart disease; F10.21 Alcohol dependence, in remission; K76.6 Portal hypertension; Z86.718 Personal history of other venous thrombosis and embolism; F17.210 Nicotine dependence, cigarettes, uncomplicated